=== PATIENT | male | born 1960 | race Caucasian/White ===

== ENCOUNTER 2022-11-22 09:08 | Outpatient (OUT) | payer OTHER, SELFPAY ==
[2022-11-22 10:04] LABS: Basophils Absolute Auto 0.1 10^3/uL (0.0-0.1); Eosinophils Absolute Auto 0.6 10^3/uL (0.0-0.7); Eosinophils Percent Auto 8.3 % (0.9-7.0); Hemoglobin 14.5 g/dL (14.0-18.0); Immature Granulocytes Abs Auto 0.02 10^3/uL (0.00-0.03); Immature Granulocytes Pct Auto 0.3 % (0.0-0.5); Lymphocytes Percent Auto 28.3 % (20.5-60.0); Mean Corpuscular Hemoglobin 29.2 pg (25.9-34.0); Mean Corpuscular Volume 88.5 fL (80.0-94.0); Mean Platelet Volume 9.3 fL (9.5-13.5); Monocytes Absolute Auto 0.6 10^3/uL (0.3-0.8); Monocytes Percent Auto 8.3 % (1.7-12.0); Neutrophils Absolute Auto 3.8 10^3/uL (1.4-6.5); Neutrophils Percent Auto 53.8 % (43.0-75.0); Platelet Count 251 10^3/uL (150-450); Red Blood Count 4.97 10^6/uL (4.70-6.10); Red Cell Distribution Width 13.2 % (11.0-15.0)
[2022-11-22 10:07] LABS: Estimated Average Glucose 108 mg/dL; Glycohemoglobin A1C 5.4 % (4.5-6.2)
[2022-11-22 10:31] LABS: Prostate Specific Antigen Scrn 1.45 ng/mL (<=4.00)
[2022-11-22 10:32] LABS: Alanine Aminotransferase 37 U/L (16-63); Albumin Globulin Ratio 1.1; Albumin Level 3.9 g/dL (3.4-5.0); Alkaline Phosphatase 50 U/L (46-116); Anion Gap 11.4; Aspartate Amino Transferase 41 U/L (15-37); BUN Creatinine Ratio 20.7; Bilirubin Total 0.5 mg/dL (0.2-1.0); Calcium 9.2 mg/dL (8.5-10.1); Carbon Dioxide 28.8 mmol/L (21.0-32.0); Chloride 103 mmol/L (98-107); Chol HDL Ratio 4.9; Cholesterol 197 mg/dL (<=200); Estimated GFR (African America >60 (>=60); Estimated GFR (Non-African Ame >60 (>=60); Free T3 2.78 pg/mL (2.18-3.98); Globulin 3.6 g/dL; Glucose 100 mg/dL (74-106); HDL Cholesterol 40 mg/dL (40-60); Potassium 4.2 mmol/L (3.5-5.1); Sodium 139 mmol/L (136-145); Thyroid Stimulating Hormone 2.682 uIU/mL (0.358-3.740); Total Protein 7.5 g/dL (6.4-8.2); Triglycerides 162 mg/dL (<=150); VLDL CHOLESTEROL 32.4 mg/dL
== END 2022-11-22 09:09 | disposition home or self-care (01) ==
PROVIDERS: PCP Family Medicine; Visit Provider Family Medicine
DX: Z00.00 Encounter for general adult medical examination without abnormal findings (principal); Z12.5 Encounter for screening for malignant neoplasm of prostate
CPT/HCPCS: 36415; 80053; 80061; 83036; 84436; 84443; 84481; 85025; G0103

== ENCOUNTER 2023-01-20 16:05 | Outpatient (OUT) | payer OTHER, SELFPAY ==
--- NOTE | 2023-01-20 16:20 | XR_ITS ---
The [address] [address] Patient Name: NITZA MIRANDA MRN: [id number] date: 1960 Sex: M Assigned Patient Location: LAB Current Patient Location: Accession/Order Number: [id number] Exam Date: 01/20/2023 16:15 Report Date: 01/21/2023 07:14 At the request of: NEHEMIAH SIDDIQUI Procedure: XR chest 2V EXAMINATION: XR chest 2V HISTORY: i57.7 Cardiomegaly COMPARISON: 08/25/2016, 10/18/2020 TECHNIQUE: PA and lateral FINDINGS: LUNGS: No significant pulmonary parenchymal abnormalities. VASCULATURE: No increased pulmonary vasculature. PLEURA: No pneumothorax, effusion, or pleural thickening. CARDIAC: No cardiomegaly or cardiac silhouette abnormality. Valve replacements MEDIASTINUM: No visible mass or adenopathy. Median sternotomy wires BONES: No fracture or visible bone lesion. OTHER: Negative. XR/XR chest 2V IMPRESSION: No acute cardiopulmonary process Electronically authenticated by: FRANCY DUNCAN Date: 01/21/2023 07:14
[2023-01-20 16:37] LABS: Basophils Absolute Auto 0.1 10^3/uL (0.0-0.1); Basophils Percent Auto 0.9 % (0.2-2.0); Eosinophils Absolute Auto 0.5 10^3/uL (0.0-0.7); Hematocrit 42.3 % (42.0-54.0); Immature Granulocytes Abs Auto 0.06 10^3/uL (0.00-0.03); Immature Granulocytes Pct Auto 0.8 % (0.0-0.5); Lymphocytes Absolute Auto 2.2 10^3/uL (1.2-3.8); Lymphocytes Percent Auto 28.4 % (20.5-60.0); Mean Corpuscular HGB Conc 33.1 g/dL (29.9-35.2); Mean Corpuscular Hemoglobin 28.8 pg (25.9-34.0); Mean Platelet Volume 9.3 fL (9.5-13.5); Monocytes Absolute Auto 0.8 10^3/uL (0.3-0.8); Monocytes Percent Auto 10.4 % (1.7-12.0); Neutrophils Absolute Auto 4.1 10^3/uL (1.4-6.5); Neutrophils Percent Auto 52.5 % (43.0-75.0); Platelet Count 229 10^3/uL (150-450); Red Blood Count 4.86 10^6/uL (4.70-6.10); Red Cell Distribution Width 13.6 % (11.0-15.0); White Blood Count 7.7 10^3/uL (4.0-11.0)
[2023-01-20 16:57] LABS: Alanine Aminotransferase 30 U/L (16-63); Albumin Globulin Ratio 0.9; Albumin Level 3.5 g/dL (3.4-5.0); Alkaline Phosphatase 78 U/L (46-116); Anion Gap 10.6; Aspartate Amino Transferase 31 U/L (15-37); BUN Creatinine Ratio 15.7; Bilirubin Total 0.4 mg/dL (0.2-1.0); Calcium 8.6 mg/dL (8.5-10.1); Carbon Dioxide 30.3 mmol/L (21.0-32.0); Chloride 103 mmol/L (98-107); Estimated GFR (African America >60 (>=60); Estimated GFR (Non-African Ame >60 (>=60); Globulin 3.7 g/dL; Glucose 71 mg/dL (74-106); Potassium 3.9 mmol/L (3.5-5.1); Sodium 140 mmol/L (136-145); Total Protein 7.2 g/dL (6.4-8.2)
== END 2023-01-20 16:06 | disposition home or self-care (01) ==
PROVIDERS: PCP Family Medicine; Visit Provider Family Medicine
DX: I11.0 Hypertensive heart disease with heart failure (principal); I50.30 Unspecified diastolic (congestive) heart failure; I51.7 Cardiomegaly
CPT/HCPCS: 36415; 71046; 80053; 83880; 85025

== ENCOUNTER 2023-03-11 15:14 | Outpatient (OUT) | payer OTHER, SELFPAY ==
--- NOTE | 2023-03-11 16:00 | CA_ITS ---
Patient Name: NITZA MIRANDA MR#: [id number] : 1960 Exam Date: 03/11/2023 Ordering Doctor: DR Eric Jimenez . ECHOCARDIOGRAM REPORT PROCEDURE: CA ECHO DOPPLER COMPLETE INDICATIONS: Cardiomegaly, Nonrheumatic mitral stenosis COMPARISON: None. DESCRIPTION: COMPLETE ECHOCARDIOGRAM Real-time transthoracic echocardiography with 2D, M-mode, spectral and color flow Doppler performed. QUALITY: Technical quality was good. LEFT VENTRICLE: Normal chamber size. Thickened septal wall. LV EF: Global left ventricular systolic function is at the lower normal limits; visually estimated ejection fraction is 50 to 55%. Abnormal septal motion; this is not an unusual finding in the post open heart patient. DIASTOLIC: Unable to assess diastolic function. ATRIAL SEPTUM: Inadequately visualized. LEFT ATRIUM: Mild dilatation. RIGHT ATRIUM: Mild dilatation. RIGHT VENTRICLE: Mild dilatation. Normal right ventricular systolic function. TRICUSPID VALVE: Normal mobility and thickness. No stenosis with trivial regurgitation. No evidence of pulmonary hypertension. RVSP 27mmHg MITRAL VALVE: A prosthetic valve (type and size unknown) is seen with normal Doppler velocities. No mitral regurgitation. No perivalvular leak identified. AORTIC VALVE: A prosthetic valve (type and size unknown ) is seen with normal Doppler velocities. No perivalvular leak identified. No aortic regurgitation. AORTIC ROOT: Normal diameter and appearance. Aortic arch repair appears normal in size. PULMONIC VALVE: Normal thickness and mobility. No stenosis. Mild regurgitation. PERICARDIUM: No evidence of pericardial effusion. IVC: Collapses with inspirations. Normal size. CONCLUSION: 1. Global left ventricular systolic function is low normal limits; visually estimated ejection fraction is 50 to 55% 2. The right ventricle is mildly dilated with normal systolic function 3. Biatrial enlargement 4. A prosthetic mitral valve is seen with normal Doppler velocities 5. A prosthetic aortic valve is seen with normal Doppler velocities 6. Mild pulmonic regurgitation Adult Echocardiography Procedure Report Left Ventricle LVEDD (3.7 - 5.6 cm): 4.12 cm LVESD (2.2 - 4.0 cm): 2.93 cm LVIVS thickness (0.6 - 1.2 cm): 1.18 cm LVPW thickness (0.5 - 1.0 cm): 0.89 cm e': 0.10 m/s E - e': 13.18 LVOT Max Gradient: 3.44 mm[Hg] LVOT Area (cm2): 0.93 m/s Peak Velocity (LVOT): 0.93 m/s Mean Velocity (LVOT): 0.63 m/s LVOT Diameter 1.97 cm Left Ventricular Ejection Fraction: 53.29 % Left Atrium LA Volume Index (2D A2C): 42.93 ml/m2 Left Atrium Systolic Dimension: 4.61 cm Mitral Valve MV E to A Ratio: 1.13 Mitral Valve A-Wave Peak Velocity: 1.19 m/s Mitral Valve E-Wave Peak Velocity: 1.34 m/s Right Ventricle RV Internal Diastolic Dimension: 4.45 cm Aorta AO Root Diam: 2.60 cm Ascending Ao Diam: 2.73 cm Aortic Valve AoV Area (Peak Francis): 1.98 cm2, 2.19 cm2 AoV Area (VTI): 2.39 cm2, 2.82 cm2 Peak Velocity(Antegrade Flow): 1.30 m/s, 1.46 m/s, 1.41 m/s, 1.59 m/s, 1.41 m/s Peak Gradient(Antegrade Flow): 6.75 mm[Hg], 8.50 mm[Hg], 7.94 mm[Hg], 10.06 mm[Hg], 7.94 mm[Hg] Mean Velocity(Antegrade Flow): 0.79 m/s, 0.89 m/s, 0.86 m/s, 0.91 m/s, 1.03 m/s Mean Gradient(Antegrade Flow): 2.87 mm[Hg], 3.97 mm[Hg], 3.67 mm[Hg], 4.10 mm[Hg], 4.74 mm[Hg] Velocity Time Integral: 20.53 cm, 25.88 cm, 24.77 cm, 25.53 cm, 24.35 cm Tricuspid Valve Peak Velocity (Regurgitant Flow): 1.99 m/s, 2.44 m/s Pulmonic Valve Mean Gradient: 1.85 mm[Hg], 2.85 mm[Hg], 2.24 mm[Hg] Mean Velocity: 0.64 m/s, 0.81 m/s, 0.70 m/s Peak Velocity: 0.98 m/s Peak Gradient: 3.48 mm[Hg], 4.21 mm[Hg], 3.75 mm[Hg] Right Atrium Right Atrium Systolic Pressure: 91.59 ml, 91.59 ml Dictated by: Lee Ewing M.D. on 03/12/2023 at 14:25 Approved by: Lee Ewing M.D. on 03/12/2023 at 14:33
== END 2023-03-11 15:15 | disposition home or self-care (01) ==
LOC: CARD 15:16
PROVIDERS: PCP Family Medicine; Visit Provider Family Medicine
DX: I51.7 Cardiomegaly (principal); I05.0 Rheumatic mitral stenosis
CPT/HCPCS: 93306

== ENCOUNTER 2023-04-17 14:50 | Emergency (ER) | payer OTHER, SELFPAY ==
--- OUTSIDE RECORDS SUMMARY | 2023-04-17 14:56 | XMS_ITS | CCD ---
Author Name Unknown Address [address] [place] [address] Organization [facility] Care Team Providers Care Destaticizer Feeder Name Role Phone Nehemiah Jimenez Primary Care Provider Nehemiah Jimenez Unavailable Nehemiah Jimenez MD Primary Care Provider [phone] Abner Young Unavailable Dianne WOOD, Nimo Garza Unavailable [phone] NEHEMIAH JIMENEZ Attending Unavailable ARTUR, DR CERNA Admitting Unavailable DR NEHEMIAH JIMENEZ Primary Care Unavailable DR NEHEMIAH JIMENEZ Consulting Unavailable DR NEHEMIAH JIMENEZ Attending Unavailable ARTUR, DR CERNA Admitting Unavailable ARTUR, DR CERNA Primary Care Unavailable Nehemiah Jimenez MD Primary Care Provider [phone] Abner Young Unavailable Dianne WOOD, Nimo Garza Unavailable [phone] Medications Current Medications Medication Drug Class(es) Dates Sig (Normalized) Sig (Original) perflutren lipid microspheres 1.3 mL in NaCl (PF) 0.9% 10 mL injection (DEFINITY) (1 source) Start: 07-26-2020 End: 10-25-2021 perflutren lipid microspheres 1.3 mL in NaCl (PF) 0.9% 10 mL injection (DEFINITY) 125 ml sodium chloride 9 mg/ml prefilled syringe (1 source) Start: 07-26-2020 End: 10-25-2021 sodium chloride 0.9 % (flush) 10 mL (BD POSIFLUSH) Completed/Discontinued Medications Medication Drug Class(es) Dates Sig (Normalized) Sig (Original) amoxicillin 500 mg oral capsule (2 sources) Penicillin-class Antibacterial Start: 07-02-2020 take 4 capsules by mouth every hour amoxicillin (POLYMOX, AMOXIL) 500 mg capsule TAKE 4 CAPSULES BY MOUTH 1 HOUR PRIOR TO PROCEDURE 0 07/02/2020 Active Comment on above: TAKE 4 CAPSULES BY M OUTH 1 HOUR PRIOR TO PROCEDURE Calcium (2 sources) Phosphate Binder, Calcium take 600 mg by mouth once daily CALCIUM ORAL Take 600 mg by mouth once daily. With vitamin D 0 Active Comment on above: Take 600 mg by mouth once daily. With vitamin D lamoTRIgine 100 mg oral tablet (2 sources) Mood Stabilizer, Anti-epileptic Agent Start: 08-27-2020 take 1 tablet by mouth once daily lamoTRIgine (LAMICTAL) 100 mg tablet Take 100 mg by mouth once daily. 0 08/27/2020 Active Comment on above: Take 100 mg by mouth once daily. levothyroxine sodium 0.025 mg oral tablet (2 sources) l-Thyroxine Start: 07-25-2020 take 1 tablet by mouth once daily levothyroxine (SYNTHROID) 25 mcg tablet Take 25 mcg by mouth once daily. 0 07/25/2020 Active Comment on above: Take 25 mcg by mouth once daily. losartan potassium 50 mg oral tablet (4 sources) Angiotensin 2 Receptor Nakul Start: 07-26-2020 End: 11-07-2022 take 1 tablet by mouth every twelve hours losartan (COZAAR) 50 mg tablet take one tablet by mouth twice a day 180 tablet 3 11/07/2022 Active Comment on above: TAKE 1 TABLET BY LILIA TH TWICE A DAY Take 1 tablet by lilia th twice daily. take one tablet by m outh twice a day 24 hr metoprolol succinate 100 mg extended release oral tablet (2 sources) beta-Adrenergic Nakul Start: 06-28-2020 take 100 mg by mouth twice daily metoprolol succinate ER (TOPROL XL) 100 mg Take 100 mg by mouth twice daily. 0 06/28/2020 Active Comment on above: Take 100 mg by mouth twice daily. pravastatin sodium 40 mg oral tablet (2 sources) HMG-CoA Reductase Inhibitor Start: 06-15-2020 take 1 tablet by mouth once daily pravastatin (PRAVACHOL) 40 mg tablet Take 40 mg by mouth once daily. 0 06/15/2020 Active Comment on above: Take 40 mg by mouth once daily. verapamil hydrochloride 180 mg extended release oral tablet (2 sources) Calcium Channel Nakul Start: 03-02-2020 take 1 tablet by mouth twice daily verapamil SR (CALAN SR, ISOPTIN SR) 180 mg CR tablet Take 180 mg by mouth twice daily. 0 03/02/2020 Active Comment on above: Take 180 mg by mouth twice daily. warfarin sodium 5 mg oral tablet (2 sources) Vitamin K Antagonist Start: 10-21-2018 take 1 tablet by mouth once daily warfarin (COUMADIN) 5 mg tablet Take 5 mg by mouth daily as directed. As directed by [facility] coumadin clinic. 0 10/21/2018 Active Comment on above: Take 5 mg by mouth d aily as directed. As directed by [facility] coumadin [facility]. Problems Active Problems Problem Classification Problem Date Documented Da te Episodic/Chronic Aortic; peripheral; and visceral artery aneurysms (2 sources) Thoracic aortic aneurysm without rupture; Translations: [Thoracic aortic aneurysm, without rupture] Onset: 10-18-2015 09-26-2020 Chronic Cardiac dysrhythmias (2 sources) Atrial fibrillation; Translations: [Unspecified atrial fibrillation] Onset: 09-11-2016 09-26-2020 Chronic Essential hypertension (2 sources) Essential hypertension; Translations: [Essential (primary) hypertension] Onset: 09-26-2020 09-26-2020 Chronic Heart valve disorders (4 sources) History of mitral valve replacement; Translations: [Presence of prosthetic heart valve] Onset: 09-26-2020 09-26-2020 Chronic Past or Other Problems Problem Classification Problem Date Documented Da te Episodic/Chronic Other screening for suspected conditions (not mental disorders or infectious disease) (1 source) Encounter for screening for malignant neoplasm of prostate; Translations: [ENC SCREEN MALIG NEOPLASM PROSTATE] Onset: 12-18-2021 Episodic Results Test Name Value Interpretation Reference Range Facility CBC AUTO DIFFon 12-14-2021 BASO # 0.0 103/ul Normal 0.0-0.1 [facility] Comment on above: Performed By: #### C BC #### [facility] [address] [address] [address] Pérez Mg Basophils/100 WBC (Bld) 0.6 % Normal 0.2-2.0 [facility] Comment on above: Performed By: #### C BC #### [facility] [address] [address] [address] Pérez Mg EO # 0.5 103/ul Normal 0.0-0.7 [facility] Comment on above: Performed By: #### C BC #### [facility] [address] [address] [address] Pérez Mg Eosinophils/100 WBC (Bld) 8.6 % Critically high 0.9-7.0 [facility] Comment on above: Performed By: #### C BC #### [facility] [address] [place] [address] Dr. Pérez Mg Erythrocyte distribution width (RBC) [Ratio] 13.2 % Normal 11.0-15.0 [facility] Comment on above: Performed By: #### C BC #### [facility] [address] [place] [address] Dr. Pérez Mg Hematocrit (Bld) [Volume fraction] 43.2 % Normal 42.0-54.0 [facility] Comment on above: Performed By: #### C BC #### [facility] [address] [place] [address] Dr. Pérez Mg Hemoglobin (Bld) [Mass/Vol] 14.6 g/dL Normal 14.0-18.0 [facility] Comment on above: Performed By: #### C BC #### [facility] [address] [place] [address] Dr. Pérez Mg IG # 0.06 10e3/ul Critically high 0.00-0.03 [facility] Comment on above: Performed By: #### C BC #### [facility] [address] [place] [address] Dr. Pérez Mg IG % 1.0 % Critically high 0.0-0.5 [facility] Comment on above: Performed By: #### C BC #### [facility] [address] [place] [address] Dr. Pérez Mg LYMPH # 1.1 103/ul Critically low 1.2-3.8 [facility] Comment on above: Performed By: #### C BC #### [facility] [address] [place] [address] Dr. Pérez Mg Lymphocytes/100 WBC (Bld) 17.5 % Critically low 20.5-60.0 [facility] Comment on above: Performed By: #### C BC #### [facility] [address] [place] [address] Dr. Pérez Mg MANUAL DIFF REQ NO Normal [facility] Comment on above: Performed By: #### C BC #### [facility] [address] [place] [address] Dr. Pérez Mg MCH (RBC) [Entitic mass] 29.0 pg Normal 25.9-34.0 [facility] Comment on above: Performed By: #### C BC #### [facility] [address] [place] [address] Dr. Pérez Mg MCHC (RBC) [Mass/Vol] 33.8 g/dL Normal 29.9-35.2 [facility] Comment on above: Performed By: #### C BC #### [facility] [address] [place] [address] Dr. Pérez Mg MCV (RBC) [Entitic vol] 85.9 fL Normal 80.0-94.0 [facility] Comment on above: Performed By: #### C BC #### [facility] [address] [place] [address] Dr. Pérez Mg MONO # 0.5 103/ul Normal 0.3-0.8 [facility] Comment on above: Performed By: #### C BC #### [facility] [address] [place] [address] Dr. Pérez Mg Monocytes/100 WBC (Bld) 8.3 % Normal 1.7-12.0 [facility] Comment on above: Performed By: #### C BC #### [facility] [address] [place] [address] Dr. Pérez Mg NEUT # 4.0 103/ul Normal 1.4-6.5 [facility] Comment on above: Performed By: #### C BC #### [facility] [address] [address] [address] Pérez Mg Neutrophils/100 WBC (Bld) 64.0 % Normal 43.0-75.0 [facility] Comment on above: Performed By: #### C BC #### [facility] [address] [place] [address] Dr. Pérez Mg Platelet mean volume (Bld) [Entitic vol] 9.1 fL Critically low 9.5-13.5 [facility] Comment on above: Performed By: #### C BC #### [facility] [address] [address] [address] Pérez Mg PLT 213 103/ul Normal 150-450 [facility] Comment on above: Performed By: #### C BC #### [facility] [address] [place] [address] Dr. Pérez Mg RBC 5.03 106/ul Normal 4.70-6.10 [facility] Comment on above: Performed By: #### C BC #### [facility] [address] [place] [address] Dr. Pérez Mg WBC 6.3 103/ul Normal 4.0-11.0 [facility] Comment on above: Performed By: #### C BC #### [facility] [address] [place] [address] Dr. Pérez Mg GLYCOHEMOGLOBIN A1Con 2021 ADA RECOMMENDATION SEE BELOW Normal [facility] Comment on above: Result Comment: ADA RECOMMENDED LIMIT 4.0 - 6.0 ADA THERAPEUTIC TARGET < 7.0 ACTION SUGGESTED > 7.0 Performed By: #### A 1C #### [facility] [address] [place] [address] Dr. Pérez Mg Glucose [Mass/Vol] 105 mg/dL Normal [facility] Comment on above: Performed By: #### A 1C #### [facility] [address] [place] [address] Dr. Pérez Mg HbA1c (Bld) [Mass fraction] 5.3 % Normal 4.5-6.2 [facility] Comment on above: Performed By: #### A 1C #### [facility] [address] [address] [address] Pérez Mg LIPID PROFILEon 12-14-2021 CHOL-HDL RATIO NORM SEE BELOW Normal [facility] Comment on above: Result Comment: 3.3 - 4.4 LOW RISK 4.4 - 7.1 AVERAGE RISK 7.1 - 11.0 MODERATE RISK >11.0 HIGH RISK Performed By: #### L IPID, CMP #### [facility] [address] [address] [address] Pérez Mg Cholesterol [Mass/Vol] 201 mg/dL Critically high <=200 [facility] Comment on above: Performed By: #### L IPID, CMP #### [facility] [address] [address] [address] Pérez Mg Cholesterol in HDL [Mass/Vol] 41 mg/dL Normal 40-60 [facility] Comment on above: Performed By: #### L IPID, CMP #### [facility] [address] [address] [address] Pérez Mg Cholesterol in LDL [Mass/Vol] 122.8 mg/dL Normal [facility] Comment on above: Performed By: #### L IPID, CMP #### [facility] [address] [address] [address] Pérez Mg Cholesterol.total/Cho lesterol in HDL [Mass ratio] 4.9 {ratio} Normal [facility] Comment on above: Performed By: #### L IPID, CMP #### [facility] [address] [address] [address] Pérez Mg HDL NORMAL > or = 60 mg/dl - LOW CARDIOVASCULAR RISK <40 mg/dl - HIGH CARDIOVASCULAR RISK Normal [facility] Comment on above: Performed By: #### L IPID, CMP #### [facility] [address] [address] [address] Pérez Mg LDL CALC NORMAL SEE BELOW Normal [facility] Comment on above: Result Comment: <100 mg/dl OPTIMAL 100 - 129 mg/dl NEAR OR ABOVE OPTIMAL 130 - 159 mg/dl BORDERLINE HIGH 160 - 189 mg/dl HIGH >190 mg/dl VERY HIGH Performed By: #### L IPID, CMP #### [facility] [address] [address] [address] Pérez Mg Triglyceride [Mass/Vol] 186 mg/dL Critically high <=150 [facility] Comment on above: Performed By: #### L IPID, CMP #### [facility] [address] [place] [address] Dr. Pérez Mg VLDL CALC 37.2 mg/dL Normal [facility] Comment on above: Performed By: #### L IPID, CMP #### [facility] [address] [address] [address] Pérez Mg PROF 14(COMP METB)on 022 Albumin [Mass/Vol] 3.9 g/dL Normal 3.4-5.0 [facility] Comment on above: Performed By: #### L IPID, CMP #### [facility] [address] [place] [address] Dr. Pérez Mg Albumin/Globulin [Mass ratio] 1.1 {ratio} Normal [facility] Comment on above: Performed By: #### L IPID, CMP #### [facility] [address] [place] [address] Dr. Pérez gM ALP [Catalytic activity/Vol] 65 U/L Normal 46-116 [facility] Comment on above: Performed By: #### L IPID, CMP #### [facility] [address] [place] [address] Dr. Pérez Mg ALT [Catalytic activity/Vol] 41 U/L Normal 16-63 [facility] Comment on above: Performed By: #### L IPID, CMP #### [facility] [address] [address] [address] Pérez Mg Anion gap [Moles/Vol] 10.3 mmol/L Normal [facility] Comment on above: Performed By: #### L IPID, CMP #### [facility] [address] [place] [address] Dr. Pérez Mg AST [Catalytic activity/Vol] 33 U/L Normal 15-37 [facility] Comment on above: Performed By: #### L IPID, CMP #### [facility] [address] [address] [address] Pérez Mg Bilirubin [Mass/Vol] 0.5 mg/dL Normal 0.2-1.0 [facility] Comment on above: Performed By: #### L IPID, CMP #### [facility] [address] [place] [address] Dr. Pérez Mg Calcium [Mass/Vol] 9.0 mg/dL Normal 8.5-10.1 [facility] Comment on above: Performed By: #### L IPID, CMP #### [facility] [address] [place] [address] Dr. Pérez Mg Chloride [Moles/Vol] 103 mmol/L Normal 98-107 [facility] Comment on above: Performed By: #### L IPID, CMP #### [facility] [address] [place] [address] Dr. Pérez Mg CO2 [Moles/Vol] 27.7 mmol/L Normal 21.0-32.0 [facility] Comment on above: Performed By: #### L IPID, CMP #### [facility] [address] [place] [address] Dr. Pérez Mg Creatinine [Mass/Vol] 0.73 mg/dL Normal 0.70-1.30 [facility] Comment on above: Performed By: #### L IPID, CMP #### [facility] [address] [place] [address] Dr. Pérez Mg EGFR-AF CONGOLESE >60 Normal >=60 [facility] Comment on above: Performed By: #### L IPID, CMP #### [facility] [address] [place] [address] Dr. Pérez Mg EGFR-NON AF CONGOLESE >60 Normal >=60 [facility] Comment on above: Performed By: #### L IPID, CMP #### [facility] [address] [place] [address] Dr. Pérez Mg Globulin (S) [Mass/Vol] 3.6 g/dL Normal [facility] Comment on above: Performed By: #### L IPID, CMP #### [facility] [address] [address] [address] Pérez Mg Glucose [Mass/Vol] 110 mg/dL Critically high 74-106 [facility] Comment on above: Performed By: #### L IPID, CMP #### [facility] [address] [place] [address] Dr. Pérez Mg Potassium [Moles/Vol] 4.0 mmol/L Normal 3.5-5.1 [facility] Comment on above: Performed By: #### L IPID, CMP #### [facility] [address] [place] [address] Dr. Pérez Mg Protein [Mass/Vol] 7.5 g/dL Normal 6.4-8.2 [facility] Comment on above: Performed By: #### L IPID, CMP #### [facility] [address] [place] [address] Dr. Pérez Mg Sodium [Moles/Vol] 137 mmol/L Normal 136-145 [facility] Comment on above: Performed By: #### L IPID, CMP #### [facility] [address] [place] [address] Dr. Pérez Mg Urea nitrogen [Mass/Vol] 16.0 mg/dL Normal 7.0-18.0 [facility] Comment on above: Performed By: #### L IPID, CMP #### [facility] [address] [place] [address] Dr. Pérez Mg Urea nitrogen/Creatinine [Mass ratio] 21.9 mg/mg Normal [facility] Comment on above: Performed By: #### L IPID, CMP #### [facility] [address] [place] [address] Dr. Pérez Dee 01-28-2021 [place] Telephone (GAIL) NITZA IBANEZ ([id number]) 1960 M Date Time Provider Department 01/28/21 JARROD LUNA During your visit today, we recorded the following information about you: Aracelis Silveira 01/28/2021 2:35 PM Signed Outside medical records uploaded to [facility]: CT/OT - CTA chest with contrast - 11/07/2020 Allergies As of Date: 01/28/2021 (No Known Allergies) Date Reviewed: 09/26/2020 Reviewed by: Chasity Payton MD - Fully Assessed Reason for Visit: Received Outside Medical Records [[id number]] Cmt: CT/OT - CTA Chest with Contrast 11/07/2020 Prescriptions as of 01/28/2021 - lamoTRIgine (LAMICTAL) 100 mg tablet Take 100 mg by mouth once daily. - amoxicillin (POLYMOX, AMOXIL) 500 mg capsule TAKE 4 CAPSULES BY MOUTH 1 HOUR PRIOR TO PROCEDURE - metoprolol succinate ER (TOPROL XL) 100 mg Take 100 mg by mouth twice daily. - verapamil SR (CALAN SR, ISOPTIN SR) 180 mg CR tablet Take 180 mg by mouth twice daily. - pravastatin (PRAVACHOL) 40 mg tablet Take 40 mg by mouth once daily. - warfarin (COUMADIN) 5 mg tablet Take 5 mg by mouth daily as directed. [facility] - levothyroxine (SYNTHROID) 25 mcg tablet Take 25 mcg by mouth once daily. - CALCIUM ORAL Take 600 mg by mouth once daily. With vitamin D - losartan (COZAAR) 50 mg tablet Take 1 tablet by mouth twice daily. Facility-Administere d Medications as of 01/28/2021 - perflutren lipid microspheres 1.3 mL in NaCl (PF) 0.9% 10 mL injection (DEFINITY) - sodium chloride 0.9 % (flush) 10 mL (BD POSIFLUSH) Problem List As Of Date 01/28/2021 Noted Resolved Atrial fibrillation (HCC) [I48.91] 09/11/2016 History of mitral valve replacement [Z95.2] 09/26/2020 Primary hypertension [I10] 09/26/2020 Thoracic aortic aneurysm without rupture (HCC) *10/18/2015 History of aortic valve replacement [Z95.2] 09/26/2020 Encounter Status:Closed by ANA FRAZIER on 01/28/21 Normal [facility] CNOVon 09-26-2020 CNOV Office Visit (CITLALLI) NITZA IBAENZ ([id number]) 1960 M Date Time Provider Department 09/26/20 12:30 PM NIMO ALTMAN During your visit today, we recorded the following information about you: Pulse Respiration Blood pressure Weight 63/minute 12/minute 176/72 69.4 kg Height 1.778 m Nimo Altman MD 10/24/2020 11:55 AM Add[facility] Department of Cardiovascular Medicine SECTION OF CARDIOVASCULAR IMAGING OUTPATIENT VISIT DATE September 26, 2020 OUTPATIENT VISIT TYPE NEW PRIMARY CARE PHYSICIAN: Nehemiah Jimenez MD [address] [place] [address] REFERRING PHYSICIAN: Jarrod Luna [address] [place] [id number] CHIEF COMPLAINT: Valvular heart disease HISTORY OF PRESENT ILLNESS: Mr. Ibanez is a 60 year old male with history of ?Marfan's syndrome, thoracic aortic aneurysm s/p aortic root replacement (2001), rheumatic heart disease s/p mechanical AVR x 2 (1984, [address] [facility]), mechanical MVR ([address] [facility] [facility]) HLD, HTN, hypothyroidism, pAF presenting for evaluation of valvular heart disease. Mr. Ibanez was last seen by Jarrod Luna MD on 07/26/2020 for atrial fibrillation and probable tachy/aria. He was set up for [facility], which showed predominant sinus rhythm, 58 atrial/supraventricu lar tachycardia runs, longest lasting 34.4 sec, rare ventricular ectopy. Patient triggered events corresponded to sinus, atrial/supraventricu lar tachycardia, junctional rhythm, and ectopic beats. No changes have been made as of yet based on these findings. He was referred to [facility] by Dr. Luna given history of AVR and MVR. He is overall feeling pretty good, with no acute concerns today. He describes occasional episodes of dizziness/lightheade dness with walking, improved with sitting down. Denies chest pain, syncope, or falls. He has checked his heart rate during such episodes and finds it is often low, in the 40s. He takes 100 mg metoprolol succinate BID (stable dose for years) and 180 mg verapamil BID (also stable dose). Regarding his valves, he reports he has not experienced any major issues since his last cardiac surgery in 2001. Most recent echo in 09/2019 showed stable valve function. Of note, the question of Marfan's arose in the 1980s but has not been formally tested. There is no family history of connective tissue disease, aneurysm, or sudden . Pt has one child who has been screened with echo but no genetic testing. Pt's father in his 80s of leukemia. His mother in her 70s of bone cancer. Brother is living with no cardiac problems. Mr. Ibanez denies chest pain, shortness of breath, orthopnea, cough, edema, PND, syncope. +Palpitations, dizziness. PAST CARDIAC HISTORY: Rheumatic heart disease s/p mechanical AVR, mechanical MVR Paroxysmal atrial fibrillation TAA s/p aortic root replacement PAST MEDICAL HISTORY Diagnosis Date - Aneurysm, thoracic aortic (HCC) - Gallstones - History of aortic valve replacement - History of mitral valve replacement - HLD (hyperlipidemia) - HTN (hypertension) - Hypothyroidism - Marfan's syndrome - Mitral valve disorder - PAF (paroxysmal atrial fibrillation) (HCC) PAST SURGICAL HISTORY Procedure Laterality Date - CARDIOVERSION 2001 - LAP CHOLECYSTECT/CHOLANG IOGRAPHY 05/2020 - PAST SURGICAL HISTORY OF s/p mechanical [facility] AVR 1984, s/p Severe MR with anterior MVL prolapse s/p mechanical [facility] AVR 2001 - PAST SURGICAL HISTORY OF 1988 varicocele surgery - SHX MITRAL VALVE REPLACEMENT - TONSILLECTOMY HX SOCIAL HISTORY Social History Tobacco Use - Smoking status: Never Smoker - Smokeless tobacco: Never Used Vaping Use - Vaping Use: Never used Substance Use Topics - Alcohol use: Never - Drug use: Never No family history on file. ALLERGIES: ALLERGIES No Known Allergies MEDICATIONS: lamoTRIgine (LAMICTAL) 100 mg tablet Take 100 mg by mouth once daily. amoxicillin (POLYMOX, AMOXIL) 500 mg capsule TAKE 4 CAPSULES BY MOUTH 1 HOUR PRIOR TO PROCEDURE metoprolol succinate ER (TOPROL XL) 100 mg Take 100 mg by mouth twice daily. verapamil SR (CALAN SR, ISOPTIN SR) 180 mg CR tablet Take 180 mg by mouth twice daily. pravastatin (PRAVACHOL) 40 mg tablet Take 40 mg by mouth once daily. warfarin (COUMADIN) 5 mg tablet Take 5 mg by mouth daily as directed. As directed by [facility] coumadin clinic. levothyroxine (SYNTHROID) 25 mcg tablet Take 25 mcg by mouth once daily. CALCIUM ORAL Take 600 mg by mouth once daily. With vitamin D losartan (COZAAR) 50 mg tablet Take 1 tablet by mouth twice daily. REVIEW OF SYSTEMS: GENERAL: Negative for: Weight loss or gain, Fever or Chills, Weakness and Sleep difficulties. HEENT: Negative for: Headache, Impai (more content not included)... Normal [facility] CNOVon 07-26-2020 CNOV Office Visit (CARDMN) NITZA IBANEZ ([id number]) 1960 M Date Time Provider Department 07/26/20 12:15 PM JARROD LUNA During your visit today, we recorded the following information about you: Pulse Blood pressure Weight Height 56/minute 167/76 69.4 kg 1.778 m Jarrod Luna MD 07/26/2020 1:53 PM Signed REFERRING/OTHER PHYSICIANS: Nehemiah Jimenez MD (PCP); Abner Young MD (CV) CHIEF COMPLAINT: Nitza Ibanez is a 60 year old male referred for atrial fibrillation and tachy-aria syndrome. HISTORY OF PRESENT ILLNESS: Nitza Ibanez thinks he was first diagnosed with AF after heart valve surgery in 2001, and undewent cardioversion about a week after surgery. He has never been on any AAD's nor ever had ablation or any cardioversions since then. He states he is not sure when he is in AF over the years, but has had intermittent palpitations. He states when it is time for his second doses of Toprol and verapamil, he often feels increased palpitations which resolves after a few hours after taking his medication. For the past year, he has had worsening symptoms of irregular, racing, flip flopping palpitations and also fluctuating HR's. HR can go from 43 bpm to 120 bpm, occuring at random times. The palpitations vary in frequency, sometimes he feels them daily, then at other times he may go a week without palpitations. When he has noticed bradycardia, he sometimes feels briefly lightheaded and slightly short of breath, but denies syncope. He sometimes then drinks a coke and feels a bit better. He feels more fatigue over the past year. He often has leg cramps. He has had no chest pain, orthopnea, PND, edema, syncope, nearsyncope. PROBLEM LIST AND PAST HISTORY: Atrial fibrillation, postop Postop AF after valve surgery 2001 s/p DCC 1 week after surgery Palpitations Since 2001 AVR, MVR, aortic arch repair, has had intermittent palpitations Extra beats, rapid irregular palpitations occur several times/week, up to daily, lasting up to half a day, up to 100-120 bpm Treated with Toprol and verapamil Worsening symptoms since 2019 of irregular, racing, flipflop palpitations, HRS 43-120 bpm Lightheadedness - associated with slow HRs, 40s bpm with SOB Increased fatigue since 2019 Rheumatic /AI s/p mechanical [facility] AVR 1984 Thoracic aortic aneurysm without rupture 6 cm s/p aortic arch repair, redo [facility] AVR, MVR 2001 Severe MR with anterior MVL prolapse s/p mechanical [facility] MVR, AVR, aortic arch repair 2001 Suspected Marfan syndrome Chest pain Normal coronary angiography 2019, normal LV function LVEFF 55% Hypertension Hyperlipidemia Hypothyroidism Gallstones, chronic cholecystits S/p lap cholecystectomy 05/22/20 Leg cramps History of hematuria - lowered his warfarin dosing s/p tonsillectomy S/p surgery for varicocele 1988 ALLERGIES/SENSITIVIT IES: NKDA FAMILY HISTORY: Mother age 73, DM, HTN, bone cancer. Father age 83 leukemia. Brother living age 64 prostate cancer with mets to bones. 2 brothers A AND W, 2 sisters A AND W. No known atrial fibrillation, sudden deaths. 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 . Daughter A AND W. 2 grandchildren. Lives in [place], [place]. Habits: Tobacco: none. Alcohol: never. Caffeine: 1 C coffee daily; occasional hot tea; rarely Coke. Herbals/Supplements: calcium + vitamin D. Exercise: No formal exercise. Active and walks frequently at work, kayak, gardening, yardwork. REVIEW OF SYSTEMS: ENDO: +hypertension, -diabetes, +thyroid disease, +hyperlipidemia. SKIN: + itchy skin/rashes. HEENT: no headaches, sinusitis, changes in vision or hearing. RESP: no cough, COPD, or sleep apnea; see HPI. CVS: see HPI. No history of claudication, peripheral vascular disease, deep venous thrombosis, pulmonary embolism, cardiac arrest. GI: no nausea, vomiting, + occasional diarrhea better since cholecystectomy, no constipation, melena, hematochezia. : no abnormal bleeding recently, dysuria. MS: No arthritis. NEURO: No CVA, TIA, numbness, weakness,+ finger paresthesias mainly when laid on in bed. No history of cancer. General, constitutional: Weight loss or gain- No, Fever or chills-No, Weakness-No, Trouble sleeping-No. Head, Eyes, Ears, Mouth: Headache, head injury-No, Glasses or contact lenses-+, Pain-No, Impaired vision-No, Decreased hearing-No, Ringing in ears-No, Nose bleeds-No, Dental difficulties-No, Bleeding gums-No, Dentures-No. Neck: Swelling-No, Pain-No, Stiffness-+. Respiratory: Cough-No, Spitting up blood-No, Shortness of breath-No, Wheezing or asthma-No. Musculoskeletal: Muscle or joint pain or stiffness-No, Joint swelling-No. Gastrointestinal: Difficulty swallowing-No, Heartburn-No, Change in bowel habits-No, Blood in stool, Dark black stools-No. Neurological/Psychia tric: Weakness, paralysis-No, Numbness-No, (more content not included)... [facility] 07-20-2020 CNPN Telephone (CARDMN) NITZA IBANEZ ([id number]) 1960 M Date Time Provider Department 07/20/20 JARROD LUNAMA During your visit today, we recorded the following information about you: Aracelis Duvall 07/20/2020 4:14 PM Signed Outside medical records scanned into [employer]. Patient scheduled to see Dr. Jarrod Luna on July 26, 2020. Allergies As of Date: 07/20/2020 (Not on File) Date Reviewed: Never Reviewed Reason for Visit: Received Outside Medical Records [[id number]] Problem List As Of Date: 07/20/2020 (None) Encounter Status:Closed by ARACELIS VALLES on 07/20/20 [facility] CNCOon 07-05-2020 CNCO Letter Text [facility] 06-26-2020 CNPN Telephone (REFPHY) NITZA IBANEZ ([id number]) 1960 M Date Time Provider Department 06/26/20 NO PCP (HISTORICAL) REFPHY During your visit today, we recorded the following information about you: Aj Saez 06/26/2020 12:18 PM Signed Patient: Nitza Ibanez Date of : 1960 Patient phone number: [phone] Referring Provider for the encounter: Nehemiah Jimenez Requesting Provider: Someone that specializes in Valve Disease Reason for requesting visit (RFV/signs and symptoms/diagnosis): Bradycardia, tachycardia Person calling: self Return call to: self Medical Records/Insurance Card scanned into [employer]: Yes Comments: Valve Replacement X2 Allergies As of Date: 06/26/2020 (Not on File) Date Reviewed: Never Reviewed Reason for Visit: External Referrals/resources [909] Problem List As Of Date: 06/26/2020 (None) Encounter Status:Closed by AJ SAEZ on 06/26/[address] [facility] Facesheeton 10-27-2019 Facesheet [id number] #1.00CD:127 Normal [facility] Provider Letter FTMCon 10-25 Provider Letter [facility] Nehemiah Jimenez [address] [place] [address] Re: NITZA IBANEZ Date of : 1960 Thank your for your referral of Nitza Ibanez who was seen on consultation on 10/25/2019 for epigastric pain and cholelithiasis. I have enclosed my consultation notes for your review. Sincerely, Kevin Martinez MD General Surgery Normal [facility] Ambulatory Clinical Summaryo n 10-25-2019 Ambulatory Clinical Summary {[id number]}CD:[id number] Normal [facility] General Surgery Office/Clini c Noteon 10-25-2019 General Surgery Office/Clinic Note Chief Complaint referral for cholelithiasis [facility] Staff 59 year old male presents on consultation from Dr. Jimenez for cholelithiasis. Complains of intermittent abdominal pain for several years. Denies nausea or vomiting. [place] foods do make symptoms worse. Denies diarrhea. RUQ US completed 09/27/19 reported severe cholelithiasis, htn, pulmonary htn, Marfan's syndrome; reports intermittent upper abdominal pain, seen in [facility] approximately 1 month ago, had epigastric burning pain, constant, radiating to chest; US revealed cholelithiasis, no acute inflammation, normal ducts; transferred to [facility] for cardiac cath, reportedly ok, was to see surgeon at [facility] regarding gallbladder, but never set up appointment; patient has been on Nexium with improvement in his epigastric pain; does report occasional mild pain with fatty foods; no N/V; no RUQ pain; no bowel changes, no previous abdominal operations; no jaundice or h/o pancreatitis. No fmhx of GI malignancy or IBD. History of Present Illness 59 yo male with h/o AVR, MVR, aortic root/arch graft, on Coumadin therapy, Review of Systems PHQ Score Initial Depression Screen Score: 0 ROS - Provider Constitutional: no fever, no sweats, no weight loss. Eyes: no glasses, no blurred vision, no visual loss. ENMT: no dentures, no hoarseness, no swallowing difficulties, no hearing loss, no ear infection(s), no nose bleeds. Cardiovascular: high blood pressure, yes chest pain, regular heartbeat, no heart murmur. Respiratory: no shortness of breath, no cough, no asthma, no wheezing. Gastrointestinal: no nausea, no vomiting, no diarrhea, no constipation, no blood in stool, no change in bowel habits, mild abdominal pain, no hepatitis. Genitourinary: no kidney stones, no urine infection, no dysuria. Musculoskeletal: no pain, no weakness. Skin: no changing moles, no rash, no skin lumps. Neurologic: no seizures, no epilepsy, no headache. Psychiatric: no emotional or psychiatric problem. Heme/Lymph: no bleeding problems, no anemia, no blood clots, no transfusions. Allergy/Immunologic: no swollen lymph nodes/glands, no IV drug abuse. Other: Additional ROS info: Except as noted in the above Review of Systems and in the History of Present Illness, all other systems have been reviewed and are negative or noncontributory. Physical Exam Vitals & Measurements T: 36.6 ?C (Tympanic) HR: 72(Peripheral) RR: 16 BP: 116/66 HT: 177.8 cm HT: 177.8 cm WT: 71.5 kg WT: 71.5 kg BMI: 22.62 HEENT: normal conjunctiva, sclera clear, no scleral icterus, EOM intact, PERRLA, oral mucosa moist without lesions. Neck: trachea midline, no mass, symmetric, no thyromegaly or nodules, no adenopathy Respiratory: lungs CTA, respirations non labored. Cardiovascular: regular rate and rhythm, mechanical heart sounds, mild murmur, no pedal edema or varicosities. Gastrointestinal: soft, non distended, no tenderness, no masses, no palpable hernias, diastasis recti no, no hepatosplenomegaly; normal bs Lymphatic: no cervical adenopathy, no axillary adenopathy, Musculoskeletal: normal gait, digits and nails without infection, nodes, cyanosis, clubbing. Skin: no rashes, no lesions, no ulcers, no subcutaneous nodules, induration. Psychiatric/Neuro: oriented to time, place, person, judgement normal, affect appropriate for age, insight intact, no focal deficits. Tests: labs reviewed, x-rays reviewed, review of old records completed, Assessment/Plan 1. Epigastric pain (R10.13: Epigastric pain) likely GERD, improving with Nexium; possibly some gallbladder symptoms as well, no severe attacks or evidence of cholecystitis; high risk for surgical intervention; recommend evaluation at [facility] in [place] for their recommendations; patient would likely have more bleeding issues if developed acute cholecystitis due to anticoagulation, so may benefit from a controlled, elective operation. patient will f/u with surgeon he was given in [place]; call with problems/questions.s ee 2. Cholelithiasis (K80.20: Calculus of gallbladder without cholecystitis without obstruction) see # 1 3. GERD (gastroesophageal reflux disease) (K21.9: Gastro-esophageal reflux disease without esophagitis) see # 1 4. 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) see # 1 Orders: Most recent diastolic blood pressure <80 mm Hg 3078F Systolic BP <130 mm Hg (Most Recent) 3074F Follow-up No qualifying data available Problem List/Past Medical History Ongoing AAA (abdominal aortic aneurysm) Atrial enlargement, bilateral Cholelithiasis Chronic anticoagulation Epigastric pain GERD (gastroesophageal reflux disease) HTN (hypertension) Lung nodule LVH (left ventricular hypertrophy) Marfan syndrome Mitral valve stenosis, rheumatic Olfactory nerve disorder PAF (paroxysmal atrial fibrillation) Peyronie disease Pulmonary HTN Unstable angina Historical No qualifying data Procedure/Surgical History Colonoscopy (05/28/2018), Aortic arch, Cardiac catheterisation, History of mechanical mitral valve replacement, Replacement of aortic valve, Varicocele. Medications CeleBREX 200 mg Cap, 200 mg= 1 cap(s), Oral, Daily Coumadin 5 mg Tab, 7.5 mg= 1.5 tab(s), Oral, Daily lamotrigine 100 mg oral tablet, 100 mg= 1 tab(s), Oral, Daily levothyroxine 50 mcg (0.05 mg) Tab, 50 microgram= 1 tab(s), Oral, Daily metoprolol tartrate 100 mg Tab, 100 mg= 1 tab(s), Oral, BID Nexium 40 mg Cap-EC, 40 mg= 1 cap(s), Oral, Daily Pravachol 40 mg Tab, 40 mg= 1 tab(s), Oral, Daily verapamil 180 mg ER Tab, 0.5 tab, Oral, q12hr Allergies No Known Allergies No Known Medication Allergies Social History Alcohol - Denies Alcohol Use, 10/19/2019 Substance Abuse - Denies Substance Abuse, 10/19/2019 Tobacco Never (less than 100 in lifetime) Tobacco Use:., 10/25/2019 Family History Congenital heart disease: Mother. Diabetes mellitus type 2: Mother. Hyperlipidemia: Mother. Leukemia: Father. Primary malignant neoplasm of prostate: Brother. Secondary cancer of bone: Father and Brother. Normal [facility] Comment on above: Result Comment: Elec tronically Signed By: JOAN WOOD, Kevin Drake\Date and Time Signed: 10/25/19 16:58 EDT Physician Referralon 020 Physician Referral [id number] #1.00CD:127 Normal [facility] Physician Referralon 020 Physician Referral [id number]# 1.00CD:127 Normal [facility] RAD - Ultrasound Reporton RAD - Ultrasound Report [id number] #1.00CD:127 Normal [facility] Complete Blood Count Auto Di ffon 05-28-2018 Basophils #/vol (Bld) 0.0 10*3/uL Normal 0.0-0.2 [facility] Comment on above: Order Comment: Comme nt send tubes to 210 Result Comment: PERF ORMED BY: [place] [address] PATHOLOGIST CAR BODY INSPECTOR LESLYE GONZALEZ M.D. Performed By: #### C BC #### [address] Basophils/100 WBC (Bld) 0.7 % Normal . [facility] Comment on above: Order Comment: Comme nt send tubes to 210 Performed By: #### C BC #### [address] Eosinophils #/vol (Bld) 0.3 10*3/uL Normal 0.0-0.45 [facility] Comment on above: Order Comment: Comme nt send tubes to 210 Performed By: #### C BC #### [address] Eosinophils/100 WBC (Bld) 6.0 % Normal . [facility] Comment on above: Order Comment: Comme nt send tubes to 210 Performed By: #### C BC #### [address] Erythrocyte distribution width Ratio (RBC) 14.1 % Normal 12.0-14.8 [facility] Comment on above: Order Comment: Comme nt send tubes to 210 Performed By: #### C BC #### [address] Hematocrit Volume Fraction (Bld) 44.5 % Normal 38.8-50.0 [facility] Comment on above: Order Comment: Comme nt send tubes to 210 Performed By: #### C BC #### [address] Hemoglobin mass conc (Bld) 15.1 g/dL Normal 13.0-17.0 [facility] Comment on above: Order Comment: Comme nt send tubes to 210 Performed By: #### C BC #### [address] Lymphocytes #/vol (Bld) 0.7 10*3/uL Low 1.00-4.8 [facility] Comment on above: Order Comment: Comme nt send tubes to 210 Performed By: #### C BC #### [facility] [address] Lymphocytes/100 WBC (Bld) 11.9 % Normal . [facility] Comment on above: Order Comment: Comme nt send tubes to 210 Performed By: #### C BC #### [facility] [address] MCH Entitic mass (RBC) 33.9 g/dL Normal 32.5-35.6 [facility] Comment on above: Order Comment: Comme nt send tubes to 210 Performed By: #### C BC #### [facility] [address] [place] [address] MCH Entitic mass (RBC) 28.8 pg Normal 27.5-35.2 [facility] Comment on above: Order Comment: Comme nt send tubes to 210 Performed By: #### C BC #### [facility] [address] [place] [address] MCV Entitic volume (RBC) 85.0 fL Normal 83.5-101 [facility] Comment on above: Order Comment: Comme nt send tubes to 210 Performed By: #### C BC #### [facility] [address] [place] [address] Monocytes #/vol (Bld) 0.7 10*3/uL Normal 0.0-0.8 [facility] Comment on above: Order Comment: Comme nt send tubes to 210 Performed By: #### C BC #### [facility] [address] [place] [address] Monocytes/100 WBC (Bld) 11.8 % Normal . [facility] Comment on above: Order Comment: Comme nt send tubes to 210 Performed By: #### C BC #### [facility] [address] [place] [address] Neutrophils #/vol (Bld) 3.9 10*3/uL Normal 1.8-7.7 [facility] Comment on above: Order Comment: Comme nt send tubes to 210 Performed By: #### C BC #### [facility] [address] [place] [address] Neutrophils/100 WBC (Bld) 69.6 % Normal . [facility] Comment on above: Order Comment: Comme nt send tubes to 210 Performed By: #### C BC #### [facility] [address] [place] [address] Nucleated RBC/100 WBC Ratio (Bld) 0.0 % Normal 0-0.5 [facility] Comment on above: Order Comment: Comme nt send tubes to 210 Performed By: #### C BC #### [facility] [address] [place] [address] Platelet mean volume Entitic volume (Bld) 7.4 fL Normal 6.6-10.1 [facility] Comment on above: Order Comment: Comme nt send tubes to 210 Performed By: #### C BC #### [facility] [address] [place] [address] Platelets #/vol (Bld) 237 10*3/uL Normal 150-450 [facility] Comment on above: Order Comment: Comme nt send tubes to 210 Performed By: #### C BC #### [facility] [address] [place] [address] RBC #/vol (Bld) 5.24 10*6/uL Normal 3.90-5.60 [facility] Comment on above: Order Comment: Comme nt send tubes to 210 Performed By: #### C BC #### [facility] [address] [place] [address] WBC #/vol (Bld) 5.6 10*3/uL Normal 4.1-10.5 [facility] Comment on above: Order Comment: Comme nt send tubes to 210 Performed By: #### C BC #### [facility] [address] [place] [address] 05-28-2018 L Specimen: Received: 05/28/18 Status: CAIO Sonia Num: [id number] Spec Type: Surgical Subm Dr: Jim Jules Jr, Tissues: A Colon - Polyp (SIGMOID POLYP) Procedures: HE Stain/2, Gross/Micro L4 Patient Age/Sex Location Account Attending Physician Nitza Ibanez/Jenna [id number] Jim Jules Jr, DO SPEC NUM: RECD: 05/28/18 STATUS: CAIO SONIA NUM: [id number] MARITO: 05/28/[address] [facility] DR: Jim Jules Jr, DO ENTERED: 05/28/[address]: SPEC TYPE: Surgical DEPT: S ORDERED: HE Stain/2, Gross/Micro L4 ORDERED: HE Stain/2, Gross/Micro L4 Pathological Diagnosis Sigmoid colon, biopsy: Tubular adenoma. Specimen Clinical Information Family history colon CA; colonoscopy Gross Received in formalin, labeled with the patient's name, number and sigmoid polyp and consists of two fragments of pink-sommer soft tissue measuring 0.3 x 0.3 x 0.2 cm each. The specimen is submitted entirely in one cassette. (JS/kasey) Microscopic Two glass slides with H E stained material have been examined. The microscopic findings support the above pathologic diagnosis. [id number] A. - - SIGMOID POLYP Specimen: [id number] Received: 05/28/18 Status: CAIO Scott Num: [id number] Spec Type: Surgical Subm Dr: Jim Jules Jr, DO Tissues: A Colon - Polyp (SIGMOID POLYP) Procedures: HE Stain/2, Gross/Micro L4 Patient: MarcelleNitza [id number] (Continued) Signed (signature on file) Leslye Gonzalez MD 05/31/18 1553 Normal [facility] Partial Thromboplastin Timeo n 05-28-2018 aPTT Coag time (Bld) 40.4 s High 23.0-35.0 [facility] Comment on above: Order Comment: Comme nt send tubes to 210 Result Comment: PERF ORMED BY: [place] [address] PATHOLOGIST CAR BODY INSPECTOR LESLYE GONZALEZ M.D. Performed By: #### P T, PTT #### [facility] [address] [place] [address] Prothrombin Time INRon 05-28 INR Coag RelTime (PPP) 1.4 {INR} [facility] Comment on above: Order Comment: Comme nt send tubes to 210 Result Comment: INR Therapeutic Range A) Pre- and Peroperative OAT started two weeks before surgery. NOT HIP SURGERY: 1.5 - 2.5 HIP SURGERY: 2 - 3 B) Primary and secondary prevention of venous THROMBOSIS: 2 - 3 C) Active venous thrombosis, pulmonary embolism and prevention of recurrent venous thrombosis: 2 - 3 D) Prevention of arterial thromboembolism including patients with mechanical heart valves: 3 - 4.5 Performed By: #### P T, PTT #### [facility] [address] [place] [address] Prothrombin time (PT) Coag time (PPP) 16.4 s High 9.0-12.9 [facility] Comment on above: Order Comment: Comme nt send tubes to 210 Performed By: #### P T, PTT #### [facility] [address] [place], [place] [id number] [facility] Encounters Encounter Date Encounter Type Care Provider Facility Start: 11-05-2022 Refteresa Amezcua Work Phone: Cardiology Comment on above: Refill Request Start: 12-18-2021 Encounter for genera l adult medical examination without abnormal findings DR NEHEMIAH JIMENEZ [facility] Start: 12-14-2021 End: 12-15-[address] NEHEMIAH JIMENEZ Facility:[facility] Start: 12-14-2021 End: 12-15-2021 Encounter for general adult medical examination without abnormal findings DR NEHEMIAH JIMENEZ Facility:[facility] Start: 09-24-2021 Refill Jarrod Amezcua Work Phone: Cardiology Comment on above: Refill Request Start: 07-18-[address] NEHEMIAH JIMENEZ Facility :[facility] Start: 06-26-2020 End: 06-26-2020 Telephone encounter No Pcp (Historical) Referring Physician Comment on above: External Referrals/r esources Procedures Date Procedure Procedure Detail Performing Clinician Start: 12-14-[address] OLEKSANDR JIMENEZ Comment on above: Performed By: #### P [facility] #### [facility] [address] [place] [address] Dr. Pérez Mg Plan of Treatment Date Care Activity Detail Author Start: 10-17-2022 Influenza vaccination Influenza Vacc ine (#1) [facility] Start: 02-16-2022 Depression Assessment Depression Ass essment [facility] Start: 10-17-2021 Influenza vaccination INFLUENZA (#1) [facility] Start: 06-18-2020 COVID-19 VACCINE (2 - Booster for Rowdy series) COVID-19 VACCINE (2 - Booster for Rowdy series) [facility] Start: 2014 PROSTATE CANCER SCRE ENING DISCUSSION PROSTATE CANCER SCREENING DISCUSSION [facility] Start: 2009 SHINGRIX VACCINE (1 of 2) SHINGRIX V ACCINE (1 of 2) [facility] Start: 2004 COLOGUARD (FIT-DNA) COLOGUARD (FIT-D NA) [facility] Start: [address] [facility] Start: 2004 COLORECTAL CANCER SCREENING COLORECTAL CANCER SCREENING [facility] Start: [address] COLONOGRAPHY [facility] Start: 2004 DIABETES SCREEN DIABETES SCREEN [facility] Start: 2004 Diabetes Screening Diabetes Screenin g [facility] Start: 2004 FECAL OCCULT BLOOD FECAL OCCULT BLOO D [facility] Start: 2004 SIGMOIDOSCOPY SIGMOIDOSCOPY [facility] Start: 1994 Lipid 1996 panel - S brandon or Plasma Lipid Screening [facility] Start: 1994 LIPID SCREEN LIPID SCREEN [facility] Start: [address] [facility] Start: 1977 ANNUAL PCP TEAM FREIGHT ROUTER ALAN DISEASE VISIT ANNUAL PCP TEAM CHRONIC DISEASE VISIT [facility] Start: 1977 BP CONTROLLED (<130/80) BP CONTROLLE D (<130/80) [facility] Start: 1977 HEPATITIS C SCREENING HEPATITIS C SC REENING [facility] Start: 1977 HIV SCREENING HIV SCREENING [facility] Start: 1971 Adult depression scr eening assessment DEPRESSION SCREENING [facility] Immunizations Immunization Date Immunization Notes Care Provider Fa cili 12-28-2019 influenza virus vacc ine, unspecified formulation Jarrod Luna MD Work Phone: [facility] Payers Date Payer Category Payer Unknown [employer] PPO [id number] 2020-Present [phone] [address] [place] [address] PPO [id number] 2013 Unknown [facility] O [id number] 2013-Present O [id number] 1959 Unknown [id number] 1959 Unknown [id number] 1960 Self-pay 1960 Unknown [id number] Social History Date Type [facility]ail [facility] Start: 01-23-1961 Sex Assigned At Not on file [facility] Start: 07-26-2020 Tobacco smoking stat us NHIS Never smoked tobacco [facility] Work Phone: Start: 07-26-2020 Tobacco use and exposure Smokeless tobacco non-user [facility] Work Phone: Start: 09-26-2020 Alcohol intake Lifetime non-d jose e (finding) [facility] Start: 07-26-2020 History SDOH Alcohol Frequency [address] [facility] Start: 07-26-2020 End: 09-26-2020 History of Social function [facility] Start: 07-26-2020 End: 09-26-[address] [facility] National Score (1-10 0), lower number is lower risk Not on file [facility] Note 11-05-2022 Telephone Encounter - Mary Fowler - 11/05/2022 9:55 AM EDT Note Date & Type Note Facility 11-05-2022 Miscellaneous Notes Formattin g of this note is different from the original. Call from patient requesting refill. Requested Prescriptions Pending Prescriptions Disp Refills losartan (COZAAR) 50 mg tablet [Pharmacy Med Name: LOSARTAN POTASSIUM 50 MG TAB] 180 tablet 3 Sig: take one tablet by mouth twice a day Patient last seen 09/26/20 Mary Fowler documented in this encounter [facility] Note 09-25-2021 Telephone Encounter - Aracelis Silveira - 09/25/2021 7:16 AM EDT Note Date & Type Note Facility 09-25-2021 Miscellaneous Notes Formattin g of this note is different from the original. Electronic request for refill. Requested Prescriptions Pending Prescriptions Disp Refills losartan (COZAAR) 50 mg tablet [Pharmacy Med Name: LOSARTAN POTASSIUM 50 MG TAB] 180 tablet 3 Sig: TAKE 1 TABLET BY MOUTH TWICE A DAY Last office visit in was 07/26/2020 Aracelis Silveira documented in this encounter [facility] Progress note 09-26-2020 Note Date & Type Note Facility 09-26-2020 Note HNO ID: [id number] Author: Nimo Altman MD Service: ? Author Type: Physician Type: Progress Notes Filed: 10/24/2020 11:55 AM Note Text: [facility] Department of Cardiovascular Medicine SECTION OF CARDIOVASCULAR IMAGING OUTPATIENT VISIT DATE September 26, 2020 OUTPATIENT VISIT TYPE NEW PRIMARY CARE PHYSICIAN: Nehemiah Jimenez MD [address] [place] [address] REFERRING PHYSICIAN: Jarrod Luna [address] [facility] [address] CHIEF COMPLAINT: Valvular heart disease HISTORY OF PRESENT ILLNESS: Mr. Ibanez is a 60 year old male with history of ?Marfan's syndrome, thoracic aortic aneurysm s/p aortic root replacement (2001), rheumatic heart disease s/p mechanical AVR x 2 (1984, [address] [facility] [facility]), mechanical MVR ([address] [facility] [facility]) HLD, HTN, hypothyroidism, pAF presenting for evaluation of valvular heart disease. Mr. Ibanez was last seen by Jarrod Luna MD on 07/26/2020 for atrial fibrillation and probable tachy/aria. He was set up for Ziopatch, which showed predominant sinus rhythm, 58 atrial/supraventricular tachycardia runs, longest lasting 34.4 sec, rare ventricular ectopy. Patient triggered events corresponded to sinus, atrial/supraventricular tachycardia, junctional rhythm, and ectopic beats. No changes have been made as of yet based on these findings. He was referred to [facility] by Dr. Luna given history of AVR and MVR. He is overall feeling pretty good, with no acute concerns today. He describes occasional episodes of dizziness/lightheadedness with walking, improved with sitting down. Denies chest pain, syncope, or falls. He has checked his heart rate during such episodes and finds it is often low, in the 40s. He takes 100 mg metoprolol succinate BID (stable dose for years) and 180 mg verapamil BID (also stable dose). Regarding his valves, he reports he has not experienced any major issues since his last cardiac surgery in 2001. Most recent echo in 09/2019 showed stable valve function. Of note, the question of Marfan's arose in the 1980s but has not been formally tested. There is no family history of connective tissue disease, aneurysm, or sudden . Pt has one child who has been screened with echo but no genetic testing. Pt's father in his 80s of leukemia. His mother in her 70s of bone cancer. Brother is living with no cardiac problems. Mr. Ibanez denies chest pain, shortness of breath, orthopnea, cough, edema, PND, syncope. +Palpitations, dizziness. PAST CARDIAC HISTORY: Rheumatic heart disease s/p mechanical AVR, mechanical MVR Paroxysmal atrial fibrillation TAA s/p aortic root replacement PAST MEDICAL HISTORY Diagnosis Date - Aneurysm, thoracic aortic (HCC) - Gallstones - History of aortic valve replacement - History of mitral valve replacement - HLD (hyperlipidemia) - HTN (hypertension) - Hypothyroidism - Marfan's syndrome - Mitral valve disorder - PAF (paroxysmal atrial fibrillation) (HCC) PAST SURGICAL HISTORY Procedure Laterality Date - CARDIOVERSION 2001 - LAP CHOLECYSTECT/CHOLANGIOGRAPHY 05/2020 - PAST SURGICAL HISTORY OF s/p mechanical [facility] AVR 1984, s/p Severe MR with anterior MVL prolapse s/p mechanical [facility] AVR 2001 - PAST SURGICAL HISTORY OF 1988 varicocele surgery - SHX MITRAL VALVE REPLACEMENT - TONSILLECTOMY HX SOCIAL HISTORY Social History Tobacco Use - Smoking status: Never Smoker - Smokeless tobacco: Never Used Vaping Use - Vaping Use: Never used Substance Use Topics - Alcohol use: Never - Drug use: Never No family history on file. ALLERGIES: ALLERGIES No Known Allergies MEDICATIONS: lamoTRIgine (LAMICTAL) 100 mg tablet Take 100 mg by mouth once daily. amoxicillin (POLYMOX, AMOXIL) 500 mg capsule TAKE 4 CAPSULES BY MOUTH 1 HOUR PRIOR TO PROCEDURE metoprolol succinate ER (TOPROL XL) 100 mg Take 100 mg by mouth twice daily. verapamil SR (CALAN SR, ISOPTIN SR) 180 mg CR tablet Take 180 mg by mouth twice daily. pravastatin (PRAVACHOL) 40 mg tablet Take 40 mg by mouth once daily. warfarin (COUMADIN) 5 mg tablet Take 5 mg by mouth daily as directed. As directed by [facility] coumad[facility]. levothyroxine (SYNTHROID) 25 mcg tablet Take 25 mcg by mouth once daily. CALCIUM ORAL Take 600 mg by mouth once daily. With vitamin D losartan (COZAAR) 50 mg tablet Take 1 tablet by mouth twice daily. REVIEW OF SYSTEMS: GENERAL: Negative for: Weight loss or gain, Fever or Chills, Weakness and Sleep difficulties. HEENT: Negative for: Headache, Impaired Vision, Glasses, Hearing Impairment, Ringing in Ears, Nosebleeds, Poor dental care, Bleeding Gums, Dentures NECK: Negative for: Swelling, Pain, Stiffness RESPIRATORY: Negative for: Cough, Blood in Sputum, Shortness of breath, Wheezing, Apnea GASTROINTESTINAL: Negative for: (more content not included)... [facility] Progress note 07-26-2020 Note Date & Type Note Facility 07-26-2020 Note HNO ID: [id number] Author: Daksha Weir Service: ? Author Type: ? Type: Progress Notes Filed: 07/26/2020 2:25 PM Note Text: EVENT MONITOR DISPOSABLE PATCH INSTRUCTIONS Patient Name: Nitza Ibanez [facility] Number: [id number] Skin prepped and cleansed with alcohol Patch secured to prepped area Monitor Activated Serial #: [id number] Patient Instructed: 1.) Prescribed order timeframe 2.) Bathing guidelines 3.) Usage of event button and diary documentation 4.) Return of monitor at the end of prescribed order 5.) Call with problems [phone] or [phone] ext. [phone] Patient expresses a good understanding of instructions Daksha Weir [facility] Clinical Note 07-26-2020 Note Date & Type Note Facility 07-26-2020 Note Education (CARDMN) NITZA IBANEZ Kevin ([id number]) 1960 M Date Time Provider Department 07/26/20 2:00 PM ARRHYTHMIA MONITORING LAB CARDMN Reason for Visit: ZIO PATCH [Other] Progress Notes: Daksha Weir 07/26/2020 2:25 PM Signed EVENT MONITOR DISPOSABLE PATCH INSTRUCTIONS Patient Name: Nitza Ibanez [facility] Number: [id number] Skin prepped and cleansed with alcohol Patch secured to prepped area Monitor Activated Serial #: [id number] Patient Instructed: 1.) Prescribed order timeframe 2.) Bathing guidelines 3.) Usage of event button and diary documentation 4.) Return of monitor at the end of prescribed order 5.) Call with problems [phone] or [phone] ext. [phone] Patient expresses a good understanding of instructions Dakshase Christina Weir Primary Visit Diagnosis:AF (paroxysmal atrial fibrillation) (HCC) [I48.0] Other Visit Diagnoses:Palpitation [R00.2] Sinus bradycardia [R00.1] Lightheadedness [R42] During your visit today, we recorded the following information about you: Allergies As of Date: 07/26/2020 (No Known Allergies) Date Reviewed: 07/26/2020 Reviewed by: Ana Singh RN - Fully Assessed Prescriptions as of 07/26/2020 Sig: METOPROLOL SUCCINATE ER 100 M* Take 100 mg by mouth twice da* VERAPAMIL ER (SR) 180 MG TABL* Take 180 mg by mouth twice da* PRAVASTATIN 40 MG TABLET Take 40 mg by mouth once tisha* WARFARIN 5 MG TABLET Take 5 mg by mouth daily as d* LEVOTHYROXINE 25 MCG TABLET Take 25 mcg by mouth once diane* CELECOXIB 200 MG CAPSULE Take 1 capsule by mouth at be* CALCIUM ORAL Take 600 mg by mouth once diane* LOSARTAN 50 MG TABLET Take 1 tablet by mouth twice * Encounter Status:Closed by DAKSHA GRAVES on 07/26/20 [facility] Progress note 07-26-2020 Note Date & Type Note Facility 07-26-2020 Note HNO ID: [id number] Author: aJrrod Luna MD Service: ? Author Type: Physician Type: Progress Notes Filed: 07/26/2020 1:53 PM Note Text: REFERRING/OTHER PHYSICIANS: Nehemiah Jimneez MD (PCP); Abner Young MD (CV) CHIEF COMPLAINT: Nitza Ibanez is a 60 year old male referred for atrial fibrillation and tachy-aria syndrome. HISTORY OF PRESENT ILLNESS: Nitza Ibanez thinks he was first diagnosed with AF after heart valve surgery in 2001, and undewent cardioversion about a week after surgery. He has never been on any AAD's nor ever had ablation or any cardioversions since then. He states he is not sure when he is in AF over the years, but has had intermittent palpitations. He states when it is time for his second doses of Toprol and verapamil, he often feels increased palpitations which resolves after a few hours after taking his medication. For the past year, he has had worsening symptoms of irregular, racing, flip flopping palpitations and also fluctuating HR's. HR can go from 43 bpm to 120 bpm, occuring at random times. The palpitations vary in frequency, sometimes he feels them daily, then at other times he may go a week without palpitations. When he has noticed bradycardia, he sometimes feels briefly lightheaded and slightly short of breath, but denies syncope. He sometimes then drinks a coke and feels a bit better. He feels more fatigue over the past year. He often has leg cramps. He has had no chest pain, orthopnea, PND, edema, syncope, nearsyncope. PROBLEM LIST AND PAST HISTORY: Atrial fibrillation, postop Postop AF after valve surgery 2001 s/p DCC 1 week after surgery Palpitations Since 2001 AVR, MVR, aortic arch repair, has had intermittent palpitations Extra beats, rapid irregular palpitations occur several times/week, up to daily, lasting up to half a day, up to 100-120 bpm Treated with Toprol and verapamil Worsening symptoms since 2019 of irregular, racing, flipflop palpitations, HRS 43-120 bpm Lightheadedness - associated with slow HRs, 40s bpm with SOB Increased fatigue since 2019 Rheumatic /AI s/p mechanical [facility] AVR 1984 Thoracic aortic aneurysm without rupture 6 cm s/p aortic arch repair, redo [facility] AVR, MVR 2001 Severe MR with anterior MVL prolapse s/p mechanical [facility] MVR, AVR, aortic arch repair 2001 Suspected Marfan syndrome Chest pain Normal coronary angiography 2019, normal LV function LVEFF 55% Hypertension Hyperlipidemia Hypothyroidism Gallstones, chronic cholecystits S/p lap cholecystectomy 05/22/20 Leg cramps History of hematuria - lowered his warfarin dosing s/p tonsillectomy S/p surgery for varicocele 1988 ALLERGIES/SENSITIVITIES: NKDA FAMILY HISTORY: Mother age 73, DM, HTN, bone cancer. Father age 83 leukemia. Brother living age 64 prostate cancer with mets to bones. 2 brothers A AND W, 2 sisters A AND W. No known atrial fibrillation, sudden deaths. 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 . Daughter A AND W. 2 grandchildren. Lives in [place], [place]. Habits: Tobacco: none. Alcohol: never. Caffeine: 1 C coffee daily; occasional hot tea; rarely Coke. Herbals/Supplements: calcium + vitamin D. Exercise: No formal exercise. Active and walks frequently at work, kayak, gardening, yardwork. REVIEW OF SYSTEMS: ENDO: +hypertension, -diabetes, +thyroid disease, +hyperlipidemia. SKIN: + itchy skin/rashes. HEENT: no headaches, sinusitis, changes in vision or hearing. RESP: no cough, COPD, or sleep apnea; see HPI. CVS: see HPI. No history of claudication, peripheral vascular disease, deep venous thrombosis, pulmonary embolism, cardiac arrest. GI: no nausea, vomiting, + occasional diarrhea better since cholecystectomy, no constipation, melena, hematochezia. : no abnormal bleeding recently, dysuria. MS: No arthritis. NEURO: No CVA, TIA, numbness, weakness,+ finger paresthesias mainly when laid on in bed. No history of cancer. General, constitutional: Weight loss or gain- No, Fever or chills-No, Weakness-No, Trouble sleeping-No. Head, Eyes, Ears, Mouth: Headache, head injury-No, Glasses or contact lenses-+, Pain-No, Impaired vision-No, Decreased hearing-No, Ringing in ears-No, Nose bleeds-No, Dental difficulties-No, Bleeding gums-No, Dentures-No. Neck: Swelling-No, Pain-No, Stiffness-+. Respiratory: Cough-No, Spitting up blood-No, Shortness of breath-No, Wheezing or asthma-No. Musculoskeletal: Muscle or joint pain or stiffness-No, Joint swelling-No. Gastrointestinal: Difficulty swallowing-No, Heartburn-No, Change in bowel habits-No, Blood in stool, Dark black stools-No. Neurological/Psychiatric: Weakness, paralysis-No, Numbness-No, Tingling-No, Tremor-No, Nervousness or anxiety-No, Depressed mood-No, Memory loss-No. Skin: Rash-No, Itching-+. Hematological: Easy bruising-+, Easy bleeding-+. Endocrine: Heat or cold intolerance-No, Excessive sweating-No, Frequent urination (more content not included)... [facility] Procedure note 07-26-2020 Note Date & Type Note Facility 07-26-2020 Note HNO ID: [id number] Author: Jarrod Luna MD Service: ? Author Type: Physician Type: Procedures Filed: 09/24/2020 11:47 AM Note Text: Patient Name: Nitza Ibanez : 1960 Ordering Provider: Jarrod Luna Indication: I48.0 Paroxysmal atrial fibrillation Type of Monitor: Extended Monitoring-Zio Patch Enrollment Dates: 07/26/2020-08/09/2020 ZioPatch 07/26/2020-08/09/2020 - Predominant sinus rhythm 42-89 bpm, avg 61 bpm. 58 atrial/supraventricular tachycardia runs occurred, the fastest lasting 4 beats with max rate of 141 bpm, the longest lasting 34.4 sec with avg rate 92 bpm. Junctional rhythm present. Occasional (1.2%) SVE singles, rare (<1.0%) SVE couplets and triplets. Rare (<1.0%) VE singles, couplets, and triplets, ventricular bigeminy (longest 8.9 sec) present. 23 patient triggered events correlating with sinus rhythm 44-86 bpm, atrial/supraventricular tachycardia runs 82-130 bpm, junctional rhythm 43-50 bpm, SVEs, SVE couplets, and VEs. 8 diary entries: skipped/irregular beats, slow rate correlated with VE singles, SVEs, SVE couplets, sinus/junctional bradycardia 50 bpm; mitral valve faster and out of sink with aortic valve with sinus bradycardia 54 bpm. [facility] Note 06-26-2020 Telephone Encounter - Aj Saez - 06/26/2020 12:16 PM EDT Note Date & Type Note Facility 06-26-2020 Miscellaneous Notes Patient: Nitza Ibanez Date of : 1960 Patient phone number: [phone] Referring Provider for the encounter: Nehemiah Jimenez Requesting Provider: Someone that specializes in Valve Disease Reason for requesting visit (RFV/signs and symptoms/diagnosis): Bradycardia, tachycardia Person calling: self Return call to: self Medical Records/Insurance Card scanned into Epic: Yes Comments: Valve Replacement X2 documented in this encounter [facility] Summary Purpose Family History No Family History Records FoundNo Family History Records FoundNo Family History Records FoundNo Family History Records Found Advance Directives No Advanced Directives Records FoundNo Advanced Directives Records FoundNo Advanced Directives Records FoundNo Advanced Directives Records Found Additional Source Comments (unrecognized sect ion and content) No Status Records FoundNo Status Records FoundNo Status Records FoundNo Status Records Found INFORMATION SOURCE (unrecogn ized section and content) DATE CREATED AUTHOR 07/08/2018 [facility] DATE CREATED AUTHOR AUTHOR'S ORGANIZ ATION 10/27/2019 [facility] DATE CREATED AUTHOR AUTHOR'S ORGANIZ ATION 03/19/2021 [facility] DATE CREATED AUTHOR AUTHOR'S ORGANIZ ATION 04/02/2022 [employer] [facility] Comments (unrecognize d section and content) In the event this informatio n is protected by the Federal Confidentiality of Alcohol and Drug Abuse Patient Records regulations: The Federal rules restrict any use of the information to criminally investigate or prosecute any alcohol or drug abuse patient.[facility] the event this information is protected by the Federal Confidentiality of Alcohol and Drug Abuse Patient Records regulations: The Federal rules restrict any use of the information to criminally investigate or prosecute any alcohol or drug abuse patient.[facility] the event this information is protected by the Federal Confidentiality of Alcohol and Drug Abuse Patient Records regulations: The Federal rules restrict any use of the information to criminally investigate or prosecute any alcohol or drug abuse patient.[facility] Reason for Visit (unrecogniz ed section and content) Reason Comments External Referrals/resources Reason Comments Refill Request Care Teams (unrecognized sec tion and content) Destaticizer Feeder Relationship Specialty Start Date End Date Nehemiah Jimenez MD [address] [place] [address] PCP - General Family Practice 06/06/13 Abner Young [address] [address] Referring Cardiology 07/26/20 Nimo Altman MD [address] [place] [address] Primary Staff Physician Cardiology 09/26/20 Destaticizer Feeder Relationship Specialty Start Date End Date Nehemiah Jimenez MD PCP - General Family Medicine 06/06/13 Abner Young [address] [address] Referring Cardiology 07/26/20 Nimo Altman MD [address] [place] [address] Primary Staff Physician Cardiology 09/26/20 FOR RECORDS PERTAINING TO PATIENTS WHO ARE OR HAVE BEEN ENROLLED IN A CHEMICAL DEPENDENCY/SUBSTANCEABUSE PROGRAM, SOME INFORMATION MAY BE OMITTED. This clinical summary was aggregated from multiple sources. Caution should be exercised in using it in the provision of clinical care. This summary normalizes information from multiple sources, and as a consequence, information in this document may materially change the coding, format and clinical context of patient data. In addition, data may be omitted in some cases. CLINICAL DECISIONS SHOULD BE BASED ON THE PRIMARY CLINICAL RECORDS. [facility]. provides no warranty or guarantee of the accuracy or completeness of information in this document.
== END 2023-04-17 15:15 | disposition left against medical advice (07) ==
LOC: ER 14:53
PROVIDERS: Emergency Provider Emergency Medicine; PCP Family Medicine
DX: Z53.21 Procedure and treatment not carried out due to patient leaving prior to being seen by health care provider (principal)

== ENCOUNTER 2023-04-28 13:16 | Outpatient (OUT) | payer OTHER, SELFPAY | END 2023-04-28 13:17 | disposition home or self-care (01) | LOC: SLEEP 13:16 | PROVIDERS: PCP Family Medicine; Visit Provider Family Medicine | DX: G47.33 Obstructive sleep apnea (adult) (pediatric) (principal) | CPT/HCPCS: 95806 ==

== ENCOUNTER 2023-08-22 15:30 | Emergency (ER) | payer BC, SELFPAY ==
[2023-08-22 15:32] VITALS: BP 179/90; PULSE 74; TEMP 36.3; O2SAT 98; BMI 22.1
--- OUTSIDE RECORDS SUMMARY | 2023-08-22 15:36 | XMS_ITS | CCD ---
Author Organization [facility] ion [facility] Care Team Providers Care Acid Tender Name Role Phone Nehemiah Jimenez Primary Care Provider [phone] Nehemiah Jimenez Unavailable Nehemiah Jimenez MD Primary Care Provider [phone] Abner Young Unavailable Dianne WOOD, Nimo Garza Unavailable [phone] NEHEMIAH JIMENEZ Attending Unavailable ARTUR, DR CERNA Admitting Unavailable ARTUR, DR CERNA Primary Care Unavailable DR NEHEMIAH JIMENEZ Consulting Unavailable ARTUR, DR CERNA Attending Unavailable ARTUR, DR CERNA Admitting Unavailable ARTUR, DR CERNA Primary Care Unavailable Nehemiah Jimenez MD Primary Care Provider [phone] Abner Young Unavailable Dianne WOOD, Nimo Garza Unavailable MATT WILLIS Referring Unavailable MATT WILLIS Attending Unavailable MATT WILLIS Admitting Unavailable MATT WILLIS Attending Unavailable HONORIO EVANS Attending Unavailable Medications Current Medications Medication Drug Class(es) Dates [...] mouth daily as directed. As directed by [facility] coumadin clinic. 0 10/21/2018 Active Comment on above: Take 5 mg by mouth d aily as directed. As directed by [facility] coumadin clinic. Problems Active Problems Problem Classification Problem Date Documented Da te Episodic/Chronic Aortic; peripheral; and visceral artery aneurysms (2 sources) Thoracic aortic aneurysm without rupture; Translations: [Thoracic aortic aneurysm, without rupture] Onset: 10-18-2015 09-26-2020 Chronic Cardiac dysrhythmias (6 sources) Atrial fibrillation; Translations: [Unspecified atrial fibrillation] Onset: 09-11-2016 09-26-2020 Chronic Cardiac dysrhythmias (2 sources) Palpitations; Translations: [Palpitations] Onset: 08-11-2023 Episodic Essential hypertension (2 sources) Essential hypertension; Translations: [Essential (primary) hypertension] Onset: 09-26-2020 09-26-2020 Chronic Heart valve disorders (4 sources) History of mitral valve replacement; Translations: [Presence of prosthetic heart valve] Onset: 09-26-2020 09-26-2020 Chronic Past or Other Problems Problem Classification Problem Date Documented Da te Episodic/Chronic Other lower respiratory disease (2 sources) Snoring; Translations: [Snoring] Onset: 04-15-2023 Episodic Other screening for suspected conditions (not mental disorders or infectious disease) (1 source) Encounter for screening for malignant neoplasm of prostate; Translations: [ENC SCREEN MALIG NEOPLASM PROSTATE] Onset: 12-18-2021 Episodic Results Test Name Value Interpretation Reference Range Facility [facility] 06-22-2023 [facility] Electrophysiology Consult Note Reason for visit: AF, MVRx2 (rheumatic disease hx?), hx AVRV HPI: Nitza Ibanez is a 63 y.o. year old with past medical history of Peyronie's disease, aortic valve replacement x2, ?Marfan syndrome??, paresthesia, rheumatic heart disease s/p mitral valve replacement, LVH, A-fib, aortic aneurysm repair on warfarin due to history of A-fib and prosthetic valves. At one point was being seeing by [facility] EP for PPM but no PPM placed. he states for his blood pressure and heart rate he has been on metoprolol 100 mg twice daily and verapamil 100 mg twice daily. he states he does not take his doses consistently and sometimes his heart rates in the 40s and he does not feel well. he usually only takes verapamil 180 mg at night and sometimes takes Toprol-XL 100 mg at night, and in the morning if his heart rate is above 80 which she feels is high for him he takes half dose of Toprol-XL and verapamil. He was seen by Honorio CHENEY on 03/26/2023. given the symptoms the decision was made to back off the beta-blockers to have a more consistent regimen to see where his heart rate runs. he had suggested a 30-day event monitor. 30-day event monitor done from 04/15/2023 to 05/14/2023 revealed no episodes of atrial fibrillation or flutter. symptoms of flutter that correlated with either PAC or just with plain sinus rhythm but majority of them correlated with the PACs. no SVT or VT was noted. TTE 03/07/2023 shows normal LVEF, thickened septal wall, LA/RA mildly dilated, RV mildly dilated, mitral valve shows prosthetic valve without regurgitation or perivalvular leak, aortic valve shows prosthetic valve without regurgitation or perivalvular leak, mild pulmonic regurgitation Labs 01/20/2023 shows stable CBC, sodium 140, K3.9, chloride 103, BUN 14, creatinine 0.89, GFR greater than 60, stable liver function, pro BNP 261 TSH 11/22/2022 2.682, HDL 40, LDL 125, triglycerides 162, hemoglobin A1c 5.4 Per [facility] cardiology 09/2020 HISTORY OF PRESENT ILLNESS: Mr. Ibanez is a 60 year old male with history of Marfan's syndrome, thoracic aortic aneurysm s/p aortic root replacement (2001), rheumatic heart disease s/p mechanical AVR x 2 (1984, 2001), mechanical MVR (2001) HLD, HTN, hypothyroidism, pAF presenting for evaluation of valvular heart disease. He describes episodic dizziness is being evaluated by EP for possible symptomatic bradycardia. He is otherwise without acute symptoms. Echo today shows EF 58% and stable gradients across aortic and mitral mechanical valves. PMH: Past Medical History: Diagnosis Date Aneurysm of ascending aorta without rupture (CMS/HCC) Aortic valve replaced Atrial fibrillation (CMS/HCC) Cardiomegaly GERD (gastroesophageal reflux disease) H/O mitral valve replacement with mechanical valve Hypertension Marfan's syndrome Peyronie's syndrome Pulmonary hypertension (CMS/HCC) Ventricular hypertrophy PSH: Past Surgical History: Procedure Laterality Date AORTIC VALVE REPLACEMENT CHOLECYSTECTOMY COLONOSCOPY W/ BIOPSIES AND POLYPECTOMY MITRAL VALVE REPLACEMENT SH: Social Determinants of Health Tobacco Use: Low Risk (04/15/2023) Patient History Smoking Tobacco Use: Never Smokeless Tobacco Use: Never Passive Exposure: Not on file Alcohol Use: Not on file Financial Resource Strain: Not on file Food Insecurity: Not on file Transportation Needs: Not on file Physical Activity: Not on file Stress: Not on file Social Connections: Not on file Intimate Partner Violence: Unknown (04/10/2023) MD Safety & Environment Fear of Current or Ex-Partner: Not on file Emotionally Abused: Not on file Physically Abused: Not on file Sexually Abused: Not on file Physically or Sexually Abused: Not on file Depression: Not on file Housing Stability: Not on file Utilities: Not on file Allergies: No Known Allergies Weight: 68.9kg Visit Vitals BP 158/81 Pulse 83 Resp 16 SpO2 98% Smoking Status Never Meds: No current facility-administered medications on file prior to encounter. Current Outpatient Medications on File Prior to Encounter Medication Sig Dispense Refill lamoTRIgine (LaMICtal) 100 mg tablet Take 100 mg by mouth in the morning. levothyroxine (Synthroid, Levoxyl) 25 mcg tablet Take 25 mcg by mouth in the morning. losartan (Cozaar) 50 mg tablet Take 50 mg by mouth 2 times daily. metoprolol succinate XL (Toprol-XL) 100 mg 24 hr tablet Take 100 mg by mouth in the morning. Do not crush or chew. pravastatin (Pravachol) 40 mg tablet Take 40 mg by mouth in the morning. verapamil SR (Calan-SR) 180 mg ER tablet Take 1 tablet (180 mg) by mouth at bedtime. 30 tablet 11 warfarin (Coumadin) 5 mg tablet Take 5-7.5 mg by mouth in the morning. ROS: Review of Systems Cardiovascular: Positive for irregular heartbeat and palpitations. All other systems reviewed and are negative. Physical Exam: Constitutional Gener (more content not included)... Normal [facility] NURSNOTEon 06-22-2023 NURSNOTE RN educated pt on d/ c instructions. RN encouraged pt to voice any questions or concerns. Pt verbalizes no questions or concerns at this time. Pt was wheeled off of unit with all of belongings. Normal [facility] Office Visiton 06-02-2023 Follow-up visit [id number] MarcelleIndio hagan as L 1960 M [facility] Provider Department Center 06/02/2023 241-MATT WILLIS SAMUEL Riggins Family History Problem Relation Age of Onset Cancer Mother Cancer Father Diabetes Sister Cancer Brother Diabetes Brother Family Status - Relation Status Age at Mother Father Sister Brother Level of Service:73719 [place] OFFICE/OUTPATIENT NEW MODERATE MDM 45 MINUTES Normal [facility] 36on 04-17-2023 36 He can restart his toprol XL 100mg once daily only [facility] Office Visiton 04-15-2023 Follow-up visit [id number] MarcelleIndio hagan christi L 1960 M Date Provider Department Center 04/15/2023 Luke6-HONORIO EVANS SAMUEL Riggins Family History Problem Relation Age of Onset Cancer Mother Cancer Father Diabetes Sister Cancer Brother Diabetes Brother Family Status - Relation Status Age at Mother Father Sister Brother Level of Service:98036 [place] OFFICE/OUTPATIENT NEW MODERATE MDM 45 MINUTES Reason for Visit and Comments: New Patient [632] - A Fib Normal [facility] CBC AUTO DIFFon 12-14-2021 BASO # 0.0 103/ul Normal 0.0-0.1 [facility] Comment on above: Performed By: #### C BC #### [facility] [address] [address] [address] Pérez Mg Basophils/100 WBC (Bld) 0.6 % Normal 0.2-2.0 [facility] Comment on above: Performed By: #### C BC #### [facility] [address] [address] [address] Pérez Mg EO # 0.5 103/ul Normal 0.0-0.7 [facility] Comment on above: Performed By: #### C BC #### [facility] [address] [address] [address] Pérez Mg Eosinophils/100 WBC (Bld) 8.6 % Critically high 0.9-7.0 [facility] Comment on above: Performed By: #### C BC #### [facility] [address] [address] [address] Pérez Mg Erythrocyte distribution width (RBC) [Ratio] 13.2 % Normal 11.0-15.0 [facility] Comment on above: Performed By: #### C BC #### [facility] [address] [address] [address] Pérez Mg Hematocrit (Bld) [Volume fraction] 43.2 % Normal 42.0-54.0 [facility] Comment on above: Performed By: #### C BC #### [facility] [address] [address] [address] Pérez Mg Hemoglobin (Bld) [Mass/Vol] 14.6 g/dL Normal 14.0-18.0 [facility] Comment on above: Performed By: #### C BC #### [facility] [address] [address] [address] Pérez Mg IG # 0.06 10e3/ul Critically high 0.00-0.03 [facility] Comment on above: Performed By: #### C BC #### [facility] [address] [address] [address] Pérez Mg IG % 1.0 % Critically high 0.0-0.5 [facility] Comment on above: Performed By: #### C BC #### [facility] [address] [address] [address] Pérez Mg LYMPH # 1.1 103/ul Critically low 1.2-3.8 [facility] Comment on above: Performed By: #### C BC #### [facility] [address] [place] [address] Dr. Pérez Mg Lymphocytes/100 WBC (Bld) 17.5 % Critically low 20.5-60.0 [facility] Comment on above: Performed By: #### C BC #### [facility] [address] [place] [address] Dr. Pérez Mg MANUAL DIFF REQ NO Normal [facility] Comment on above: Performed By: #### C BC #### [facility] [address] [place] [address] Dr. Pérez Mg MCH (RBC) [Entitic mass] 29.0 pg Normal 25.9-34.0 [facility] Comment on above: Performed By: #### C BC #### [facility] [address] [place] [address] Dr. Pérez Mg MCHC (RBC) [Mass/Vol] 33.8 g/dL Normal 29.9-35.2 [facility] Comment on above: Performed By: #### C BC #### [facility] [address] [place] [address] Dr. Pérez Mg MCV (RBC) [Entitic vol] 85.9 fL Normal 80.0-94.0 [facility] Comment on above: Performed By: #### C BC #### [facility] [address] [place] [address] Dr. Pérez Mg MONO # 0.5 103/ul Normal 0.3-0.8 [facility] Comment on above: Performed By: #### C BC #### [facility] [address] [place] [address] Dr. Pérez Mg Monocytes/100 WBC (Bld) 8.3 % Normal 1.7-12.0 [facility] Comment on above: Performed By: #### C BC #### [facility] [address] [place] [address] Dr. Pérez Mg NEUT # 4.0 103/ul Normal 1.4-6.5 [facility] Comment on above: Performed By: #### C BC #### [facility] [address] [address] [address] Pérez Mg Neutrophils/100 WBC (Bld) 64.0 % Normal 43.0-75.0 [facility] Comment on above: Performed By: #### C BC #### [facility] [address] [address] [address] Pérez Mg Platelet mean volume (Bld) [Entitic vol] 9.1 fL Critically low 9.5-13.5 [facility] Comment on above: Performed By: #### C BC #### [facility] [address] [address] [address] Pérez Mg PLT 213 103/ul Normal 150-450 [facility] Comment on above: Performed By: #### C BC #### [facility] [address] [place] [address] Dr. Pérez Mg RBC 5.03 106/ul Normal 4.70-6.10 [facility] Comment on above: Performed By: #### C BC #### [facility] [address] [place] [address] Dr. Pérez Mg WBC 6.3 103/ul Normal 4.0-11.0 [facility] Comment on above: Performed By: #### C BC #### [facility] [address] [place] [address] Dr. Pérez Mg GLYCOHEMOGLOBIN A1Con 2021 ADA RECOMMENDATION SEE BELOW Normal [facility] Comment on above: Result Comment: ADA RECOMMENDED LIMIT 4.0 - 6.0 ADA THERAPEUTIC TARGET < 7.0 ACTION SUGGESTED > 7.0 Performed By: #### A 1C #### [facility] [address] [place] [address] Dr. Pérez Mg Glucose [Mass/Vol] 105 mg/dL Normal [facility] Comment on above: Performed By: #### A 1C #### [facility] [address] [place] [address] Dr. Pérez Mg HbA1c (Bld) [Mass fraction] 5.3 % Normal 4.5-6.2 [facility] Comment on above: Performed By: #### A 1C #### [facility] [address] [address] [address] Pérez Mg LIPID PROFILEon 12-14-2021 CHOL-HDL RATIO NORM SEE BELOW Normal [facility] Comment on above: Result Comment: 3.3 - 4.4 LOW RISK 4.4 - 7.1 AVERAGE RISK 7.1 - 11.0 MODERATE RISK >11.0 HIGH RISK Performed By: #### L IPID, CMP #### [facility] [address] [address] [address] Pérez Mg Cholesterol [Mass/Vol] 201 mg/dL Critically high <=200 [facility] Comment on above: Performed By: #### L IPID, CMP #### [facility] [address] [address] [address] Pérez Mg Cholesterol in HDL [Mass/Vol] 41 mg/dL Normal 40-60 [facility] Comment on above: Performed By: #### L IPID, CMP #### [facility] [address] [address] [address] Pérez Mg Cholesterol in LDL [Mass/Vol] 122.8 mg/dL Normal [facility] Comment on above: Performed By: #### L IPID, CMP #### [facility] [address] [address] [address] Pérez Mg Cholesterol.total/Ch olesterol in HDL [Mass ratio] 4.9 {ratio} Normal [facility] Comment on above: Performed By: #### L IPID, CMP #### [facility] [address] [address] [address] Pérez Mg HDL NORMAL > or = 60 mg/dl - LO W CARDIOVASCULAR RISK <40 mg/dl - HIGH CARDIOVASCULAR RISK Normal [facility] Comment on above: Performed By: #### L IPID, CMP #### [facility] [address] [place] [address] Dr. Pérez Mg LDL CALC NORMAL SEE BELOW Normal [facility] Comment on above: Result Comment: <100 mg/dl OPTIMAL 100 - 129 mg/dl NEAR OR ABOVE OPTIMAL 130 - 159 mg/dl BORDERLINE HIGH 160 - 189 mg/dl HIGH >190 mg/dl VERY HIGH Performed By: #### L IPID, CMP #### [facility] [address] [place] [address] Dr. Pérez Mg Triglyceride [Mass/Vol] 186 mg/dL Critically high <=150 [facility] Comment on above: Performed By: #### L IPID, CMP #### [facility] [address] [place] [address] Dr. Pérez Mg VLDL CALC 37.2 mg/dL Normal [facility] Comment on above: Performed By: #### L IPID, CMP #### [facility] [address] [place] [address] Dr. Pérez Mg PROF 14(COMP METB)on 022 Albumin [Mass/Vol] 3.9 g/dL Normal 3.4-5.0 [facility] Comment on above: Performed By: #### L IPID, CMP #### [facility] [address] [place] [address] Dr. Pérez Mg Albumin/Globulin [Mass ratio] 1.1 {ratio} Normal [facility] Comment on above: Performed By: #### L IPID, CMP #### [facility] [address] [place] [address] Dr. Pérez Mg ALP [Catalytic activity/Vol] 65 U/L Normal 46-116 [facility] Comment on above: Performed By: #### L IPID, CMP #### [facility] [address] [place] [address] Dr. Pérez Mg ALT [Catalytic activity/Vol] 41 U/L Normal 16-63 [facility] Comment on above: Performed By: #### L IPID, CMP #### [facility] [address] [place] [address] Dr. Pérez Mg Anion gap [Moles/Vol] 10.3 mmol/L Normal [facility] Comment on above: Performed By: #### L IPID, CMP #### [facility] [address] [place] [address] Dr. Pérez Mg AST [Catalytic activity/Vol] 33 U/L Normal 15-37 [facility] Comment on above: Performed By: #### L IPID, CMP #### [facility] [address] [place] [address] Dr. Pérez Mg Bilirubin [Mass/Vol] 0.5 mg/dL Normal 0.2-1.0 [facility] Comment on above: Performed By: #### L IPID, CMP #### [facility] [address] [place] [address] Dr. Pérez Mg Calcium [Mass/Vol] 9.0 mg/dL Normal 8.5-10.1 [facility] Comment on above: Performed By: #### L IPID, CMP #### [facility] [address] [place] [address] Dr. Pérez Mg Chloride [Moles/Vol] 103 mmol/L Normal 98-107 [facility] Comment on above: Performed By: #### L IPID, CMP #### [facility] [address] [place] [address] Dr. Pérez Mg CO2 [Moles/Vol] 27.7 mmol/L Normal 21.0-32.[address] [facility] Comment on above: Performed By: #### L IPID, CMP #### [facility] [address] [place] [address] Dr. Pérez Mg Creatinine [Mass/Vol] 0.73 mg/dL Normal 0.70-1.30 [facility] Comment on above: Performed By: #### L IPID, CMP #### [facility] [address] [place] [address] Dr. Pérez Mg EGFR-AF SAMMARINESE >60 Normal >=60 [facility] Comment on above: Performed By: #### L IPID, CMP #### [facility] [address] [place] [address] Dr. Pérez Mg EGFR-NON AF SAMMARINESE >60 Normal >=60 [facility] Comment on above: Performed By: #### L IPID, CMP #### [facility] [address] [place] [address] Dr. Pérez Mg Globulin (S) [Mass/Vol] 3.6 g/dL Normal [facility] Comment on above: Performed By: #### L IPID, CMP #### [facility] [address] [place] [address] Dr. Pérez Mg Glucose [Mass/Vol] 110 mg/dL Critically high 74-106 [facility] Comment on above: Performed By: #### L IPID, CMP #### [facility] [address] [place] [address] Dr. Pérez Mg Potassium [Moles/Vol] 4.0 mmol/L Normal 3.5-5.1 [facility] Comment on above: Performed By: #### L IPID, CMP #### [facility] [address] [place] [address] Dr. Pérez Mg Protein [Mass/Vol] 7.5 g/dL Normal 6.4-8.2 [facility] Comment on above: Performed By: #### L IPID, CMP #### [facility] [address] [place] [address] Dr. Pérez Mg Sodium [Moles/Vol] 137 mmol/L Normal 136-145 [facility] Comment on above: Performed By: #### L IPID, CMP #### [facility] [address] [place] [address] Dr. Pérez Mg Urea nitrogen [Mass/Vol] 16.0 mg/dL Normal 7.0-18.0 [facility] Comment on above: Performed By: #### L IPID, CMP #### [facility] [address] [place] [address] Dr. Pérez Mg Urea nitrogen/Creatinine [Mass ratio] 21.9 mg/mg Normal [facility] Comment on above: Performed By: #### L IPID, CMP #### [facility] [address] [place] [address] Dr. Pérez Dee 01-28-2021 [place] Telephone (GAIL) NITZA IBANEZ ([id number]) 1960 M Date Time Provider Department 01/28/21 SILVERIODWAINManda REYNOLDS During your visit today, we recorded the following information about you: Aracelis Silveira 01/28/2021 2:35 PM Signed Outside medical records uploaded to [facility]: CT/OT - CTA chest with contrast - 11/07/2020 Allergies As of Date: 01/28/2021 (No Known Allergies) Date Reviewed: 09/26/2020 Reviewed by: Chasity Payton MD - Fully Assessed Reason for Visit: Received Outside Medical Records [[id number]] Cmt: CT/OT - CTA Chest with Contrast [...] mouth daily as directed. As directed by [facility] coumadin clinic. - levothyroxine (SYNTHROID) 25 mcg tablet Take 25 mcg by mouth once daily. - CALCIUM ORAL Take 600 mg by mouth once daily. With vitamin D - losartan (COZAAR) 50 mg tablet Take 1 tablet by mouth twice daily. Facility-Administered Medications as of 01/28/2021 - perflutren lipid [...] Encounter Status:Closed by ANA FRAZIER on 01/28/21 [facility] CNOVon 09-26-2020 CNOV Office Visit (CARIMN ) NITZA IBANEZ ([id number]) 1960 M Date Time Provider Department 09/26/20 12:30 PM NIMO ALTMAN During your visit today, we recorded the following information about you: Pulse Respiration Blood pressure Weight 63/minute 12/minute 176/72 69.4 kg Height 1.778 m Nimo Altman MD 10/24/2020 11:55 AM Addendum [facility] Department of Cardiovascular Medicine SECTION OF CARDIOVASCULAR IMAGING OUTPATIENT VISIT DATE September 26, 2020 OUTPATIENT VISIT TYPE NEW PRIMARY CARE PHYSICIAN: Nehemiah Jimenez MD [address] [place] [address] REFERRING PHYSICIAN: Jarrod Luna [address] [place] [id number] CHIEF COMPLAINT: Valvular heart disease HISTORY OF [...] [place], which showed predominant sinus rhythm, 58 atrial/supraventricula r tachycardia runs, longest lasting 34.4 sec, rare ventricular ectopy. Patient triggered events corresponded to sinus, atrial/supraventricula r tachycardia, junctional rhythm, and ectopic beats. No changes have been made as of yet based on these findings. He was referred to Imaging Clinic by Dr. Luna given history of AVR and MVR. He is overall feeling pretty good, with no acute concerns today. He describes occasional episodes of dizziness/lightheadedn ess with walking, improved with sitting down. Denies [...] valve disorder - PAF (paroxysmal atrial fibrillation) ([facility]) PAST SURGICAL HISTORY Procedure Laterality Date - CARDIOVERSION 2001 - LAP CHOLECYSTECT/CHOLANGIO GRAPHY 05/2020 - PAST SURGICAL HISTORY OF s/p [...] mouth daily as directed. As directed by [facility] coumadin clinic. levothyroxine (SYNTHROID) 25 mcg tablet [...] Headache, Impai (more content not included)... Normal [facility] CNOVon 07-26-2020 CNOV Office Visit (CARDMN ) NITZA IBANEZ ([id number]) 1960 M Date Time Provider Department 07/26/20 [...] s/p tonsillectomy S/p surgery for varicocele 1988 ALLERGIES/SENSITIVITIE S: NKDA FAMILY HISTORY: Mother age 73, DM, HTN, bone cancer. Father age 83 leukemia. Brother living age 64 prostate cancer with mets to bones. 2 brothers A AND W, 2 sisters A AND W. No known atrial fibrillation, sudden deaths. 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 . Daughter A AND W. 2 grandchildren. Lives in [place], [place]. Habits: Tobacco: none. Alcohol: never. Caffeine: [...] habits-No, Blood in stool, Dark black stools-No. Neurological/Psychiatr ic: Weakness, paralysis-No, Numbness-No, (more content not included)... Normal [facility] 07-20-2020 CNPN Telephone (CARDMN) NITZA IBANEZ ([id number]) 1960 M Date Time Provider Department 07/20/20 JARROD LUNA CARDVT During your visit today, we recorded the following information about you: Aracelis Duvall 07/20/2020 4:14 PM Signed Outside medical records scanned into [employer]. Patient scheduled to see Dr. Jarrod Luna on July 26, 2020. Allergies As of Date: 07/20/2020 (Not on File) Date Reviewed: Never Reviewed Reason for Visit: Received Outside Medical Records [[id number]] Problem List As Of Date: 07/20/2020 (None) Encounter Status:Closed by ARACELIS VALLES on 07/20/20 [facility] CNCOon 07-05-2020 CNCO Letter Text [facility] 06-26-2020 CNPN Telephone (REFPHY) NITZA IBANEZ ([id number]) 1960 M Date Time Provider Department 06/26/20 NO PCP (HISTORICAL) REFPHY During your visit today, we recorded the following information about you: Aj Saez 06/26/2020 12:18 PM Signed Patient: Nitza Ibanez Date of : 1960 Patient phone number: [phone] Referring Provider for the encounter: Nehemiah Jimenez Requesting Provider: Someone that specializes in Valve Disease Reason for requesting visit (RFV/signs and symptoms/diagnosis): Bradycardia, tachycardia Person calling: self Return call to: self Medical Records/Insurance Card scanned into [employer]: Yes Comments: Valve Replacement X2 Allergies As of Date: 06/26/2020 (Not on File) Date Reviewed: Never Reviewed Reason for Visit: External Referrals/resources [909] Problem List As Of Date: 06/26/2020 (None) Encounter Status:Closed by AJ SAEZ on 06/26/20 [facility] Facesheeton 10-27-2019 Facesheet [id number] 0CD:127 Normal [facility] Provider Letter FTMCon 10-25 Provider Letter [facility] Nehemiah Jimenez [address] [facility] [place] [address] Re: NITZA IBANEZ Date of : 1960 Thank your for your referral of Nitza Ibanez who was seen on consultation on 10/25/2019 for epigastric pain and cholelithiasis. I have enclosed my consultation notes for your review. Sincerely, Kevin Martinez MD General Surgery [facility] Ambulatory Clinical Summaryo n 10-25-2019 Ambulatory Clinical Summary {[id number]}CD:[id number] Normal [facility] General Surgery Office/Clini c Noteon 10-25-2019 General Surgery Office/Clinic Note Chief Complaint referral for cholelithiasis [facility] Staff 59 year old male presents on consultation from Dr. Jimenez for cholelithiasis. Complains of intermittent abdominal pain for several years. Denies nausea or vomiting. [place] foods do make symptoms worse. Denies diarrhea. RUQ US completed 09/27/19 reported severe cholelithiasis, htn, pulmonary htn, Marfan's syndrome; reports intermittent upper abdominal pain, seen in [place] ED approximately 1 month ago, had epigastric burning pain, constant, radiating to chest; US revealed cholelithiasis, no acute inflammation, normal ducts; transferred to [place] for cardiac cath, reportedly ok, was to see surgeon at [facility] regarding gallbladder, but never set up appointment; [...] risk for surgical intervention; recommend evaluation at [facility] in [place] for their recommendations; patient would likely have more bleeding issues if developed acute cholecystitis due to anticoagulation, so may benefit from a controlled, elective operation. patient will f/u with surgeon he was given in [place]; call with problems/questions.see 2. Cholelithiasis (K80.20: Calculus of gallbladder without cholecystitis without obstruction) see # 1 3. GERD (gastroesophageal reflux disease) (K21.9: Gastro-esophageal reflux disease without esophagitis) see # 1 4. Chronic anticoagulation (Z79.01: custodial (current) use of anticoagulants) see # 1 [...] cancer of bone: Father and Brother. Normal [facility] Comment on above: Result Comment: Elec tronically Signed By: JOAN WOOD, Kevin Drake\Date and Time Signed: 10/25/19 16:58 EDT Physician Referralon 020 Physician Referral [id number] 0CD:127 Normal [facility] Physician Referralon 020 Physician Referral [id number] CD:127 Normal [facility] RAD - Ultrasound Reporton RAD - Ultrasound Report [id number] 0CD:127 Normal [facility] Complete Blood Count Auto Di ffon 05-28-2018 Basophils #/vol (Bld) 0.0 10*3/uL Normal 0.0-0.2 [facility] Comment on above: Order Comment: Comme nt send tubes to 210 Result Comment: PERF ORMED BY: [place] [address] PATHOLOGIST CREEL CLERK LESLYE GONZALEZ M.D. Performed By: #### C BC #### [address] Basophils/100 WBC (Bld) 0.7 % Normal . [facility] Comment on above: Order Comment: Comme nt send tubes to 210 Performed By: #### C BC #### [address] Eosinophils #/vol (Bld) 0.3 10*3/uL Normal 0.0-0.45 [facility] Comment on above: Order Comment: Comme nt send tubes to 210 Performed By: #### C BC #### [address] Eosinophils/100 WBC (Bld) 6.0 % Normal . [facility] Comment on above: Order Comment: Comme nt send tubes to 210 Performed By: #### C BC #### [address] Erythrocyte distribution width Ratio (RBC) 14.1 % Normal 12.0-14.8 [facility] Comment on above: Order Comment: Comme nt send tubes to 210 Performed By: #### C BC #### [address] Hematocrit Volume Fraction (Bld) 44.5 % Normal 38.8-50.0 [facility] Comment on above: Order Comment: Comme nt send tubes to 210 Performed By: #### C BC #### [address] Hemoglobin mass conc (Bld) 15.1 g/dL Normal 13.0-17.0 [facility] Comment on above: Order Comment: Comme nt send tubes to 210 Performed By: #### C BC #### [address] Lymphocytes #/vol (Bld) 0.7 10*3/uL Low 1.00-4.8 [facility] Comment on above: Order Comment: Comme nt send tubes to 210 Performed By: #### C BC #### [address] Lymphocytes/100 WBC (Bld) 11.9 % Normal . [facility] Comment on above: Order Comment: Comme nt send tubes to 210 Performed By: #### C BC #### [facility] [address] [place] [address] MCH Entitic mass (RBC) 33.9 g/dL Normal 32.5-35.6 [facility] Comment on above: Order Comment: Comme nt send tubes to 210 Performed By: #### C BC #### [address] MCH Entitic mass (RBC) 28.8 pg Normal 27.5-35.2 [facility] Comment on above: Order Comment: Comme nt send tubes to 210 Performed By: #### C BC #### [address] MCV Entitic volume (RBC) 85.0 fL Normal 83.5-101 [facility] Comment on above: Order Comment: Comme nt send tubes to 210 Performed By: #### C BC #### [address] Monocytes #/vol (Bld) 0.7 10*3/uL Normal 0.0-0.8 [facility] Comment on above: Order Comment: Comme nt send tubes to 210 Performed By: #### C BC #### [address] Monocytes/100 WBC (Bld) 11.8 % Normal . [facility] Comment on above: Order Comment: Comme nt send tubes to 210 Performed By: #### C BC #### [address] Neutrophils #/vol (Bld) 3.9 10*3/uL Normal 1.8-7.7 [facility] Comment on above: Order Comment: Comme nt send tubes to 210 Performed By: #### C BC #### [facility] [address] [place] [address] Neutrophils/100 WBC (Bld) 69.6 % Normal . [facility] Comment on above: Order Comment: Comme nt send tubes to 210 Performed By: #### C BC #### [facility] [address] [place] [address] Nucleated RBC/100 WBC Ratio (Bld) 0.0 % Normal 0-0.5 [facility] Comment on above: Order Comment: Comme nt send tubes to 210 Performed By: #### C BC #### [facility] [address] [place] [address] Platelet mean volume Entitic volume (Bld) 7.4 fL Normal 6.6-10.1 [facility] Comment on above: Order Comment: Comme nt send tubes to 210 Performed By: #### C BC #### [facility] [address] [place] [address] Platelets #/vol (Bld) 237 10*3/uL Normal 150-450 [facility] Comment on above: Order Comment: Comme nt send tubes to 210 Performed By: #### C BC #### [facility] [address] [place] [address] RBC #/vol (Bld) 5.24 10*6/uL Normal 3.90-5.60 [facility] Comment on above: Order Comment: Comme nt send tubes to 210 Performed By: #### C BC #### [facility] [address] [place] [address] WBC #/vol (Bld) 5.6 10*3/uL Normal 4.1-10.5 [facility] Comment on above: Order Comment: Comme nt send tubes to 210 Performed By: #### C BC #### [facility] [address] [place] [address] 05-28-2018 L -- ---- Specimen: Received: 05/28/18 Status: CAIO Sonia Num: [id number] Spec Type: Surgical Subm Dr: Jim Jules Jr, Tissues: A Colon - Polyp (SIGMOID POLYP) Procedures: HE Stain/2, Gross/Micro L4 ---- Patient Age/Sex Location Account Attending Physician ---- Nitza Ibanez/Jenna [id number] Jim Jules Jr, DO ---- SPEC NUM: RECD: 05/28/18 STATUS: VERNONDasha SCOTT NUM: [id number] MARITO: 05/28/[address] [facility] [address]: Jim Jules Jr, DO ENTERED: 05/28/[address]: SPEC TYPE: Surgical DEPT: S ORDERED: [...] microscopic findings support the above pathologic diagnosis. [id number] A. - - SIGMOID POLYP ---- ---- Specimen: [id number] Received: 05/28/18 Status: CAIO Scott Num: [id number] Spec Type: Surgical Subm Dr: Jim Jules Jr, DO Tissues: A Colon - Polyp (SIGMOID POLYP) Procedures: HE Stain/2, Gross/Micro L4 ---- Patient: MarcelleNitza [id number] (Continued) ---- Signed (signature on file) Leslye Gonzalez MD 05/31/18 1553 Normal [facility] Partial Thromboplastin Timeo n 05-28-2018 aPTT Coag time (Bld) 40.4 s High 23.0-35.0 [facility] Comment on above: Order Comment: Comme nt send tubes to 210 Result Comment: PERF ORMED BY: [place] [address] PATHOLOGIST CREEL CLERK LESLYE GONZALEZ M.D. Performed By: #### P T, PTT #### [facility] [address] [place], [place] [id number] [place] Prothrombin Time INRon 05-28 INR Coag RelTime (PPP) 1.4 {INR} [facility] Comment on above: Order Comment: Comme [...] Performed By: #### P T, PTT #### [facility] [address] [place], [place] [id number] [facility] Prothrombin time (PT) Coag time (PPP) 16.4 s High 9.0-12.9 [facility] Comment on above: Order Comment: Comme nt send tubes to 210 Performed By: #### P T, PTT #### [facility] [address] [place], [place] [id number] [facility] Encounters Encounter Date Encounter Type Care Provider Facility Start: 08-11-2023 [facility] Start: 06-22-2023 End: 06-22-[address] [facility] Start: 06-02-2023 End: 06-02-[address] [facility] Start: 04-15-2023 End: 04-15-2023 ambulatory [facility] Start: 11-05-2022 Refill Jarrod Amezcua Work Phone: Cardiology Comment on above: Refill Request Start: 12-18-2021 Encounter for genera l adult medical examination without abnormal findings DR NEHEMIAH JIMENEZ [facility] Start: 12-14-2021 End: 12-15-[address] NEHEMIAH [...] Comment on above: Performed By: #### [facility] #### [facility] [address] [place] [address] Dr. Pérez Mg Plan of Treatment Date Care Activity Detail Author Start: 10-17-2022 Influenza vaccination Influenza Vacc ine (#1) [facility] Start: 02-16-2022 Depression Assessment Depression Ass essment [facility] Start: 10-17-2021 Influenza vaccination INFLUENZA (#1) [facility] Start: 06-18-2020 COVID-19 VACCINE (2 - Booster for Rowdy series) COVID-19 VACCINE (2 - Booster for Rowdy series) [facility] Start: 2014 PROSTATE CANCER SCRE ENING DISCUSSION PROSTATE CANCER SCREENING DISCUSSION [facility] Start: 2009 SHINGRIX VACCINE (1 of 2) SHINGRIX V ACCINE (1 of 2) [facility] Start: 2004 COLOGUARD (FIT-DNA) COLOGUARD (FIT-D NA) [facility] Start: 2004 Colonoscopy COLONOSCOPY [facility] Start: 2004 COLORECTAL CANCER SCREENING COLORECTAL CANCER SCREENING [facility] Start: [address] COLONOGRAPHY [facility] Start: 2004 [facility]ABET[facility]CREEN [facility] Start: 2004 Diabetes Screening Diabetes Screenin g [facility] Start: 2004 FECAL OCCULT BLOOD FECAL OCCULT BLOO D [facility] Start: 2004 SIGMOIDOSCOPY SIGMOIDOSCOPY [facility] Start: 1994 Lipid 1996 panel - S brandon or Plasma Lipid Screening [facility] Start: 1994 LIPID SCREEN LIPID SCREEN [facility] Start: 1978 Urine microalbumin profile [facility] Start: 1977 ANNUAL PCP TEAM NIB FINISHER ALAN DISEASE VISIT ANNUAL PCP TEAM CHRONIC DISEASE VISIT [facility] Start: 1977 BP CONTROLLED (<130/80) BP CONTROLLE D (<130/80) [facility] Start: 1977 HEPATITIS C SCREENING HEPATITIS C SC REENING [facility] Start: 1977 HIV SCREENING HIV SCREENING [facility] Start: 1971 Adult depression scr eening assessment DEPRESSION SCREENING [facility] Immunizations Immunization Date Immunization Notes Care Provider Fa ciligiselle 12-28-2019 influenza virus vacc ine, unspecified formulation Jarrod Luna MD Work Phone: [facility] Payers Date Payer Category Payer Unknown [id number] 2023 Unknown [id number] 2020 Unknown [employer]UE [employer]E SS PPO [id number] 2020-Present [phone] [address] [place] [address] PPO [id number] 2013 Unknown [facility] O [id number] 2013-Present O [id number] 1959 Unknown [id number] 1960 Unknown [id number] 1960 Self-pay 1960 Unknown [id number] Social History Date Type Detail Facility Tobacco smoking stat [facility] Unknown if ever smoked [facility] Start: 1960 Sex Assigned At Not on file [facility] Start: 07-26-2020 Tobacco smoking stat [facility] Never smoked tobacco [facility] Work Phone: Start: 07-26-2020 Tobacco use and exposure Smokeless tobacco non-user [facility] Work Phone: Start: 09-26-2020 Alcohol intake Lifetime non-d jose e (finding) [facility] Start: 07-26-2020 History SDOH Alcohol Frequency 1 [facility] Start: 07-26-2020 End: 09-26-2020 History of Social function [facility] Start: 07-26-2020 End: 09-26-2020 Tobacco use panel [facility] National Score (1-10 0), lower number is lower risk Not on file [facility] Clinical Notes 06-26-2020 to 06-22-2023 Telephone Encounter - Mary Fowler - 11/05/2022 9:55 AM EDTTelephone Encounter - Aracelis Silveira - 09/25/2021 7:16 AM EDTTelephone Encounter - Aj Saez - 06/26/2020 12:16 PM EDT Note Date & Type Note Facility 06-22-2023 Note LOOP IMPLANT PROCEDU RE NOTE DATE OF PROCEDURE: 06/22/23 PERFORMING PHYSICIAN: Dr. Matt Willis INDICATIONS FOR PROCEDURE: 1. SVT/AF surveillance CONSENT: Patient LOCATION: EP lab PROCEDURAL SEDATION: None FLUOROSCOPY TIME: 0min PREPARATION: Preoperative antibiotics was administered. EBL: 5cc SPECIMEN REMOVED: None PROCEDURES PERFORMED: 1. LOOP implant PROCEDURE NOTE: Patient was brought to the EP lab in the post absorptive state. A procedural pause was performed verifying the patient, the procedure. Sterile prep and drape were performed over the left precordium and anesthesia with 1% lidocaine was followed by a small incision was made in the 3rd intercostal space near the sternum on the left using the [employer] tool. The loop recorder was then injected subcutaneously and noted to have good sensing parameters. Technical details of the device as noted below. The skin was then closed with 3-0 absorbable monofilament suture and glue applied to hold the edges together. Tegaderm was applied to cover the wound. The patient appeared to tolerate the procedure well and was returned to the room in stable condition. No complications were immediately observed. Sensin.22mV. IMPRESSION: Successful placement of LOOP implant with excellent sensing parameters. COMPLICATIONS: None RECOMMENDATIONS: 1. Occlusive dressing to be changed after 7 days. 2. Do not wet the incision. Matt Willis MD Cardiac Electrophysiology. [facility] 06-02-2023 Note [facility] Consult Note Reason for visit: AF, MVRx2 (rheumatic disease hx?), hx AVRV HPI: Nitza Ibanez is a 63 y.o. year old with past medical history of Peyronie's disease, aortic valve replacement x2, ?Marfan syndrome??, paresthesia, rheumatic heart disease s/p mitral valve replacement, LVH, A-fib, aortic aneurysm repair on warfarin due to history of A-fib and prosthetic valves. At one point was being seeing by [facility] EP for PPM but no PPM placed. he states for his blood pressure and heart rate he has been on metoprolol 100 mg twice daily and verapamil 100 mg twice daily. he states he does not take his doses consistently and sometimes his heart rates in the 40s and he does not feel well. he usually only takes verapamil 180 mg at night and sometimes takes Toprol-XL 100 mg at night, and in the morning if his heart rate is above 80 which she feels is high for him he takes half dose of Toprol-XL and verapamil. He was seen by Honorio CHENEY on 03/26/2023. given the symptoms the decision was made to back off the beta-blockers to have a more consistent regimen to see where his heart rate runs. he had suggested a 30-day event monitor. 30-day event monitor done from 04/15/2023 to 05/14/2023 revealed no episodes of atrial fibrillation or flutter. symptoms of flutter that correlated with either PAC or just with plain sinus rhythm but majority of them correlated with the PACs. no SVT or VT was noted. TTE 03/07/2023 shows normal LVEF, thickened septal wall, LA/RA mildly dilated, RV mildly dilated, mitral valve shows prosthetic valve without regurgitation or perivalvular leak, aortic valve shows prosthetic valve without regurgitation or perivalvular leak, mild pulmonic regurgitation Labs 01/20/2023 shows stable CBC, sodium 140, K3.9, chloride 103, BUN 14, creatinine 0.89, GFR greater than 60, stable liver function, pro BNP 261 TSH 11/22/2022 2.682, HDL 40, LDL 125, triglycerides 162, hemoglobin A1c 5.4 Per [facility] cardiology 09/2020 HISTORY OF PRESENT ILLNESS: Mr. Ibanez is a 60 year old male with history of Marfan's syndrome, thoracic aortic aneurysm s/p aortic root replacement (2001), rheumatic heart disease s/p mechanical AVR x 2 (1984, 2001), mechanical MVR (2001) HLD, HTN, hypothyroidism, pAF presenting for evaluation of valvular heart disease. He describes episodic dizziness is being evaluated by EP for possible symptomatic bradycardia. He is otherwise without acute symptoms. Echo today shows EF 58% and stable gradients across aortic and mitral mechanical valves. PMH: Past Medical History: Diagnosis Date Aneurysm of ascending aorta without rupture (CMS/HCC) Aortic valve replaced Atrial fibrillation (CMS/HCC) Cardiomegaly GERD (gastroesophageal reflux disease) H/O mitral valve replacement with mechanical valve Hypertension Marfan's syndrome Peyronie's syndrome Pulmonary hypertension (CMS/HCC) Ventricular hypertrophy PSH: Past Surgical History: Procedure Laterality Date AORTIC VALVE REPLACEMENT CHOLECYSTECTOMY COLONOSCOPY W/ BIOPSIES AND POLYPECTOMY MITRAL VALVE REPLACEMENT SH: Social Determinants of Health Tobacco Use: Low Risk (04/15/2023) Patient History Smoking Tobacco Use: Never Smokeless Tobacco Use: Never Passive Exposure: Not on file Alcohol Use: Not on file Financial Resource Strain: Not on file Food Insecurity: Not on file Transportation Needs: Not on file Physical Activity: Not on file Stress: Not on file Social Connections: Not on file Intimate Partner Violence: Unknown (04/10/2023) [facility] Fear of Current or Ex-Partner: Not on file Emotionally Abused: Not on file Physically Abused: Not on file Sexually Abused: Not on file Physically or Sexually Abused: Not on file Depression: Not on file Housing Stability: Not on file Utilities: Not on file Allergies: No Known Allergies Weight: 68.9kg Visit Vitals BP 143/83 (BP Location: Right arm, Patient Position: Sitting) Pulse 73 Ht 1.778 m (5' 10 ) Wt 68.9 kg (152 lb) SpO2 93% BMI 21.81 kg/m??? Smoking Status Never BSA 1.84 m??? Meds: Current Outpatient Medications on File Prior to Visit Medication Sig Dispense Refill lamoTRIgine (LaMICtal) 100 mg tablet Take 100 mg by mouth in the morning. levothyroxine (Synthroid, Levoxyl) 25 mcg tablet Take 25 mcg by mouth in the morning. losartan (Cozaar) 50 mg tablet Take 50 mg by mouth 2 times daily. metoprolol succinate XL (Toprol-XL) 100 mg 24 hr tablet Take 100 mg by mouth in the morning. Do not crush or chew. pravastatin (Pravachol) 40 mg tablet Take 40 mg by mouth in the morning. verapamil SR (Calan-SR) 180 mg ER tablet Take 1 tablet (180 mg) by mouth at bedtime. 30 tablet 11 warfarin (Coumadin) 5 mg tablet Take 5-7.5 mg by mouth in the morning. No current facility-administered medications on file prior to visit. ROS: Review of Systems Cardiovascular: Positive for irregular he (more content not included)... [facility] 04-15-2023 Note [facility] Consult Note Reason for visit: new pt, AF, MVRx2 (rheumatic disease hx?), hx AVRV HPI: Nitza Ibanez is a 63 y.o. year old with past medical history of Peyronie's disease, aortic valve replacement x2, ?Marfan syndrome??, paresthesia, rheumatic heart disease s/p mitral valve replacement, LVH, A-fib, aortic aneurysm repair On warfarin due to history of A-fib and prosthetic valves At one point was being seeing by [facility] EP for PPM but no PPM placed he states for his blood pressure and heart rate he has been on metoprolol 100 mg twice daily and verapamil 100 mg twice daily he states he does not take his doses consistently and sometimes his heart rates in the 40s and he does not feel well. he usually only takes verapamil 180 mg at night and sometimes takes Toprol-XL 100 mg at night, and in the morning if his heart rate is above 80 which she feels is high for him he takes half dose of Toprol-XL and verapamil I discussed with him he may just be on too much AV zoran blocking agents and for now we may need to back off some of them to have a more consistent regimen to see where his heart rate normally since I discussed with him that her heart rate in the 80s or 90s is not a reason to take rate control medication, especially if he is in just a sinus rhythm TTE 03/07/2023 shows normal LVEF, thickened septal wall, LA/RA mildly dilated, RV mildly dilated, mitral valve shows prosthetic valve without regurgitation or perivalvular leak, aortic valve shows prosthetic valve without regurgitation or perivalvular leak, mild pulmonic regurgitation Labs 01/20/2023 shows stable CBC, sodium 140, K3.9, chloride 103, BUN 14, creatinine 0.89, GFR greater than 60, stable liver function, pro BNP 261 TSH 11/22/2022 2.682, HDL 40, LDL 125, triglycerides 162, hemoglobin A1c 5.4 Per [facility] 09/2020 HISTORY OF PRESENT ILLNESS: Mr. Ibaenz is a 60 year old male with history of ?Marfan's syndrome, thoracic aortic aneurysm s/p aortic root replacement (2001), rheumatic heart disease s/p mechanical AVR x 2 (1984, [address] [place]), mechanical MVR ([address] [facility]) HLD, HTN, hypothyroidism, pAF presenting for evaluation of valvular heart disease. Mr. Ibanez is a 60 year old male with history of Marfan's syndrome, thoracic aortic aneurysm s/p aortic root replacement (2001), rheumatic heart disease s/p mechanical AVR x 2 (1984, 2001), mechanical MVR (2001) HLD, HTN, hypothyroidism, pAF presenting for evaluation of valvular heart disease. He describes episodic dizziness is being evaluated by EP for possible symptomatic bradycardia. He is otherwise without acute symptoms. Echo today shows EF 58% and stable gradients across aortic and mitral mechanical valves. PMH: Past Medical History: Diagnosis Date Aneurysm of ascending aorta without rupture (CMS/HCC) Aortic valve replaced Atrial fibrillation (CMS/HCC) Cardiomegaly GERD (gastroesophageal reflux disease) H/O mitral valve replacement with mechanical valve Hypertension Marfan's syndrome Peyronie's syndrome Pulmonary hypertension (CMS/HCC) Ventricular hypertrophy PSH: Past Surgical History: Procedure Laterality Date AORTIC VALVE REPLACEMENT CHOLECYSTECTOMY COLONOSCOPY W/ BIOPSIES AND POLYPECTOMY MITRAL VALVE REPLACEMENT SH: Social Determinants of Health Tobacco Use: Low Risk (04/15/2023) Patient History Smoking Tobacco Use: Never Smokeless Tobacco Use: Never Passive Exposure: Not on file Alcohol Use: Not on file Financial Resource Strain: Not on file Food Insecurity: Not on file Transportation Needs: Not on file Physical Activity: Not on file Stress: Not on file Social Connections: Not on file Intimate Partner Violence: Unknown (04/10/2023) MD Safety & Environment Fear of Current or Ex-Partner: Not on file Emotionally Abused: Not on file Physically Abused: Not on file Sexually Abused: Not on file Physically or Sexually Abused: Not on file Depression: Not on file Housing Stability: Not on file Utilities: Not on file Allergies: Not on File Weight: 61.7kg Visit Vitals Resp 11 Ht 1.778 m (5' 10 ) Wt 61.7 kg (136 lb) BMI 19.51 kg/m??? Smoking Status Never BSA 1.75 m??? Meds: Current Outpatient Medications on File Prior to Visit Medication Sig Dispense Refill lamoTRIgine (LaMICtal) 100 mg tablet Take 100 mg by mouth in the morning. levothyroxine (Synthroid, Levoxyl) 25 mcg tablet Take 25 mcg by mouth in the morning. metoprolol succinate XL (Toprol-XL) 100 mg 24 hr tablet Take 1 tablet by mouth in the morning and at bedtime. pravastatin (Pravachol) 40 mg tablet Take 40 mg by mouth in the morning. verapamil SR (Calan-SR) 180 mg ER tablet Take 1 tablet by mouth in the morning and at bedtime. warfarin (Coumadin) 5 mg tablet Take 5-7.5 mg by mouth in the morning. [DISCONTINUED] oxyCODONE-acetaminophen (Percocet) 5-325 mg tablet Take 1 tablet by mouth every (more content not included)... [facility] 11-05-2022 Miscellaneous Notes Call from patient requesting refill. Requested Prescriptions Pending Prescriptions Disp Refills losartan (COZAAR) 50 mg tablet [Pharmacy Med Name: LOSARTAN POTASSIUM 50 MG TAB] 180 tablet 3 Sig: take one tablet by mouth twice a day Patient last seen 09/26/20 Mary Fowler documented in this encounter [facility] 09-25-2021 Miscellaneous Notes Electronic request for refill. Requested Prescriptions Pending Prescriptions Disp Refills losartan (COZAAR) 50 mg tablet [Pharmacy Med Name: LOSARTAN POTASSIUM 50 MG TAB] 180 tablet 3 Sig: TAKE 1 TABLET BY MOUTH TWICE A DAY Last office visit in was 07/26/2020 Aracelis Silveira documented in this encounter [facility] 09-26-2020 Note HNO ID: [id number] Author: Nimo Altman MD Service: ? Author Type: Physician Type: Progress Notes Filed: 10/24/2020 11:55 AM Note Text: [facility] Department of Cardiovascular Medicine SECTION OF CARDIOVASCULAR IMAGING OUTPATIENT VISIT DATE September 26, 2020 OUTPATIENT VISIT TYPE NEW PRIMARY CARE PHYSICIAN: Nehemiah Jimenez MD [address] [place] [address] REFERRING PHYSICIAN: Jarrod Luna [address] [place] [id number] CHIEF COMPLAINT: Valvular heart disease HISTORY OF [...] valve disorder - PAF (paroxysmal atrial fibrillation) ([facility]) PAST SURGICAL HISTORY Procedure Laterality Date - CARDIOVERSION 2001 - LAP CHOLECYSTECT/CHOLANGIOGRAPHY 05/2020 - PAST SURGICAL HISTORY OF s/p mechanical [facility] AVR 1984, s/p Severe MR with anterior MVL prolapse s/p mechanical [facility] AVR 2001 - PAST SURGICAL HISTORY OF [...] daily as [facility]. [facility] levothyroxine (SYNTHROID) 25 mcg tablet [...] GASTROINTESTINAL: Negative for: (more content not included)... [facility] 07-26-2020 Note HNO ID: [id number] Author: Daksha Weir Service: ? Author Type: ? Type: Progress Notes Filed: 07/26/2020 2:25 PM Note Text: EVENT MONITOR DISPOSABLE PATCH INSTRUCTIONS Patient Name: Nitza Ibanez [facility] Number: [id number] Skin prepped and cleansed with alcohol Patch secured to prepped area Monitor Activated Serial #: [id number] Patient Instructed: 1.) Prescribed order timeframe 2.) Bathing guidelines 3.) Usage of event button and diary documentation 4.) Return of monitor at the end of prescribed order 5.) Call with problems [phone] or [phone] ext. [phone] Patient expresses a good understanding of instructions Daksha Weir [facility] 07-26-2020 Note Education (CARDMN) MARCELLENITZA ([id number]) 1960 M Date Time Provider Department 07/26/20 2:00 PM ARRHYTHMIA MONITORING LAB CARDMN Reason for Visit: ZIO PATCH [Other] Progress Notes: Daksha Weir 07/26/2020 2:25 PM Signed EVENT MONITOR DISPOSABLE PATCH INSTRUCTIONS Patient Name: Nitza Ibanez Clinic Number: [id number] Skin prepped and cleansed with alcohol Patch secured to prepped area Monitor Activated Serial #: [id number] Patient Instructed: 1.) Prescribed order timeframe 2.) Bathing guidelines 3.) Usage of event button and diary documentation 4.) Return of monitor at the end of prescribed order 5.) Call with problems [phone] or [phone] ext. [phone] Patient expresses a good understanding of instructions Daksha Weir Primary Visit Diagnosis:AF (paroxysmal atrial fibrillation) [...] Encounter Status:Closed by DAKSHA GRAVES on 07/26/20 [facility] 07-26-2020 Note HNO ID: [id number] Author: Jarrod Luna MD Service: ? Author Type: Physician Type: Progress Notes Filed: 07/26/2020 1:53 PM Note Text: REFERRING/OTHER PHYSICIANS: Nehemiah Jimenez MD (PCP); Abner [...] Rheumatic /AI s/p mechanical [facility] AVR 1985 Thoracic aortic aneurysm without rupture 6 cm s/p aortic arch repair, redo [facility] AVR, MVR 2002 Severe MR with anterior MVL prolapse s/p [...] fibrillation, sudden deaths. 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 . Daughter A AND W. 2 grandchildren. Lives in [place], [place]. Habits: Tobacco: none. Alcohol: never. Caffeine: [...] sweating-No, Frequent urination (more content not included)... [facility] 07-26-2020 Note HNO ID: [id number] Author: Jarrod Luna MD Service: ? Author [...] aortic valve with sinus bradycardia 54 bpm. [facility] 06-26-2020 Miscellaneous Notes Patient: Nitza Ibanez Date of : 1960 Patient phone number: [phone] Referring Provider for the encounter: Nehemiah Jimenez Requesting Provider: Someone that specializes in Valve Disease Reason for requesting visit (RFV/signs and symptoms/diagnosis): Bradycardia, tachycardia Person calling: self Return call to: self Medical Records/Insurance Card scanned into [employer]: Yes Comments: Valve Replacement X2 documented in this encounter [facility] Summary Purpose Family History No Family History [...] section and content) DATE CREATED AUTHOR 07/08/2018 [facility] DATE CREATED AUTHOR AUTHOR'S ORGANIZ ATION 10/27/2019 [facility] DATE CREATED AUTHOR AUTHOR'S ORGANIZ ATION 03/19/2021 [facility] DATE CREATED AUTHOR AUTHOR'S ORGANIZ ATION 04/02/[address] [facility] DATE CREATED AUTHOR AUTHOR'S ORGANIZ ATION 08/12/2023 [facility] Source Comments (unrecognize d section and content) In the event this informatio n is protected by the Federal Confidentiality of Alcohol and Drug Abuse Patient Records regulations: The Federal rules restrict any use of the information to criminally investigate or prosecute any alcohol or drug abuse patient.[facility] the event this information is protected by the Federal Confidentiality of Alcohol and Drug Abuse Patient Records regulations: The Federal rules restrict any use of the information to criminally investigate or prosecute any alcohol or drug abuse patient.[facility] the event this information is protected by the Federal Confidentiality of Alcohol and Drug Abuse Patient Records regulations: The Federal rules restrict any use of the information to criminally investigate or prosecute any alcohol or drug abuse patient.[facility] Reason for Visit (unrecogniz ed section and content) Reason Comments External Referrals/resources Reason Comments Refill Request Care Teams (unrecognized sec tion and content) Acid Tender Relationship Specialty Start Date End Date Nehemiah Jimenez MD [address] [place] [address] PCP - General Family Practice 06/06/13 Abner Young [address] [address] Referring Cardiology 07/26/20 Nimo Altman MD [address] [place] [address] Primary Staff Physician Cardiology 09/26/20 Acid Tender Relationship Specialty Start Date End Date Nehemiah Jimenez MD PCP - General Family Medicine 06/06/13 Abner Young [address] [address] Referring Cardiology 07/26/20 Nimo Altman MD [address] [place] [address] Primary Staff Physician Cardiology 09/26/20 [...] BE BASED ON THE PRIMARY CLINICAL RECORDS. [employer] provides no warranty or guarantee of the accuracy or completeness of information in this document.
[2023-08-22] MEDS: ADACEL DIPH,PERTUSS(ACELL),TET VAC/PF 0.5 ML ADULT SYRINGE IM (16:46)
[2023-08-22] MEDS: BACITRACIN 0.9 GM PACKET 1 PACKET TOPICAL (16:46)
[2023-08-22 16:56] VITALS: BP 165/77; PULSE 62; O2SAT 98
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
== END 2023-08-22 16:59 | disposition home or self-care (01) ==
PROVIDERS: Emergency Provider Emergency Medicine; PCP Family Medicine
DX: T25.321A Burn of third degree of right foot, initial encounter (principal); X19.XXXA Contact with other heat and hot substances, initial encounter; Z23 Encounter for immunization
CPT/HCPCS: 90471; 90715; 99284

== ENCOUNTER 2023-09-02 17:11 | Outpatient (RCR) | payer BC, SELFPAY | END 2023-09-16 10:11 | disposition home or self-care (01) | LOC: MM 17:11 | PROVIDERS: PCP Family Medicine; Visit Provider Internal Medicine | DX: Z51.81 Encounter for therapeutic drug level monitoring (principal); Z79.01 Long term (current) use of anticoagulants; I48.91 Unspecified atrial fibrillation | CPT/HCPCS: 85610; G0463 ==

== ENCOUNTER 2023-09-04 11:53 | Outpatient (OUT) | payer BC, SELFPAY ==
--- OUTSIDE RECORDS SUMMARY | 2023-09-04 12:09 | XMS_ITS | CCD ---
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 Name Role Phone Nehemiah Jimenez Primary Care Provider [phone] Nehemiah Jimenez Unavailable Nehemiah Jimenez MD Primary Care Provider [phone] Abner Young Unavailable Dianne WOOD, Nimo Garza Unavailable [phone] NEHEMIAH JIMENEZ Attending Unavailable ARTUR, DR CERNA Admitting Unavailable ARTUR, DR CERNA Primary Care Unavailable DR NEHEMIAH JIMENEZ Consulting Unavailable ARTUR, DR CERNA Attending Unavailable ARTUR, DR CERNA Admitting Unavailable ARTUR, DR CERNA Primary Care Unavailable Nehemiah Jimenez MD Primary Care Provider [phone] Abner Young Unavailable Dianne WOOD, Nimo Garza Unavailable [phone] MATT WILLIS Referring Unavailable AMTT WILLIS Attending Unavailable MATT WILLIS Admitting Unavailable [...] mouth daily as directed. As directed by [facility] coumadin clinic. 0 10/21/2018 Active Comment on above: Take 5 mg by mouth d aily as directed. As directed by [facility] coumadin clinic. Problems Active Problems [...] Test Name Value Interpretation Reference Range Facility [facility] 06-22-2023 [facility] Electrophysiology Consult Note Reason for [...] At one point was being seeing by [facility] EP for PPM but no PPM placed. [...] 125, triglycerides 162, hemoglobin A1c 5.4 Per [facility] cardiology 09/2020 HISTORY OF PRESENT ILLNESS: Mr. [...] on file Intimate Partner Violence: Unknown (04/10/2023) [place] Safety & Environment Fear of Current or [...] Constitutional Gener (more content not included)... Normal [facility] NURSNOTEon 06-22-2023 NURSNOTE RN educated pt on d/ c instructions. RN encouraged pt to voice any questions or concerns. Pt verbalizes no questions or concerns at this time. Pt was wheeled off of unit with all of belongings. Normal [facility] Office Visiton 06-02-2023 Follow-up visit [id number] MarcelleIndio hagan as L 1960 M [facility] Provider Department Center 06/02/2023 241-MATT WILLIS SAMUEL Riggins Family History Problem Relation Age of Onset Cancer Mother Cancer Father Diabetes Sister Cancer Brother Diabetes Brother Family Status - Relation Status Age at Mother Father Sister Brother Level of Service:12296 [place] OFFICE/OUTPATIENT NEW MODERATE MDM 45 MINUTES Normal [facility] 36on 04-17-2023 36 He can restart his toprol XL 100mg once daily only [facility] Office Visiton 04-15-2023 Follow-up visit [id number] MarcelleIndio hagan hcristi L 1960 M Date Provider Department Center 04/15/2023 Luke6-HONORIO [facility]ANS SAMUEL Riggins Family History Problem Relation Age of Onset Cancer Mother Cancer Father Diabetes Sister Cancer Brother Diabetes Brother Family Status - Relation Status Age at Mother Father Sister Brother Level of Service:38681 [place] OFFICE/OUTPATIENT NEW MODERATE MDM 45 MINUTES Reason for Visit and Comments: New Patient [632] - A Fib Normal [facility] CBC AUTO DIFFon 12-14-2021 BASO # 0.0 103/ul Normal 0.0-0.1 [facility] Comment on above: Performed By: #### C BC #### [facility] [address] [address] [address] Pérez Mg Basophils/100 WBC (Bld) 0.6 % Normal 0.2-2.0 [facility] Comment on above: Performed By: #### C BC #### [facility] [address] [address] [address] Pérez Mg EO # 0.5 103/ul Normal 0.0-0.7 [facility] Comment on above: Performed By: #### C BC #### [facility] [address] [address] [address] Pérez Mg Eosinophils/100 WBC (Bld) 8.6 % Critically high 0.9-7.0 [facility] Comment on above: Performed By: #### C BC #### [facility] [address] [address] [address] Pérez Mg Erythrocyte distribution width (RBC) [Ratio] 13.2 % Normal 11.0-15.0 [facility] Comment on above: Performed By: #### C BC #### [facility] [address] [address] [address] Pérez Mg Hematocrit (Bld) [Volume fraction] 43.2 % Normal 42.0-54.0 [facility] Comment on above: Performed By: #### C BC #### [facility] [address] [address] [address] Pérez Mg Hemoglobin (Bld) [Mass/Vol] 14.6 g/dL Normal 14.0-18.0 [facility] Comment on above: Performed By: #### C BC #### [facility] [address] [address] [address] Pérez Mg IG # 0.06 10e3/ul Critically high 0.00-0.03 [facility] Comment on above: Performed By: #### C BC #### [facility] [address] [address] [address] Pérez Mg IG % 1.0 % Critically high 0.0-0.5 [facility] Comment on above: Performed By: #### C BC #### [facility] [address] [address] [address] Pérez Mg LYMPH # 1.1 103/ul Critically low 1.2-3.8 [facility] Comment on above: Performed By: #### C BC #### [facility] [address] [place] [address] Dr. Pérez Mg Lymphocytes/100 WBC (Bld) 17.5 % Critically low 20.5-60.0 [facility] Comment on above: Performed By: #### C BC #### [facility] [address] [place] [address] Dr. Pérez Mg MANUAL DIFF REQ NO Normal [facility] Comment on above: Performed By: #### C BC #### [facility] [address] [place] [address] Dr. Pérez Mg MCH (RBC) [Entitic mass] 29.0 pg Normal 25.9-34.0 [facility] Comment on above: Performed By: #### C BC #### [facility] [address] [place] [address] Dr. Pérez Mg MCHC (RBC) [Mass/Vol] 33.8 g/dL Normal 29.9-35.2 [facility] Comment on above: Performed By: #### C BC #### [facility] [address] [place] [address] Dr. Pérez Mg MCV (RBC) [Entitic vol] 85.9 fL Normal 80.0-94.0 [facility] Comment on above: Performed By: #### C BC #### [facility] [address] [place] [address] Dr. Pérez Mg MONO # 0.5 103/ul Normal 0.3-0.8 [facility] Comment on above: Performed By: #### C BC #### [facility] [address] [place] [address] Dr. Pérez Mg Monocytes/100 WBC (Bld) 8.3 % Normal 1.7-12.0 [facility] Comment on above: Performed By: #### C BC #### [facility] [address] [place] [address] Dr. Pérez Mg NEUT # 4.0 103/ul Normal 1.4-6.5 [facility] Comment on above: Performed By: #### C BC #### [facility] [address] [address] [address] Pérez Mg Neutrophils/100 WBC (Bld) 64.0 % Normal 43.0-75.0 [facility] Comment on above: Performed By: #### C BC #### [facility] [address] [address] [address] Pérez Mg Platelet mean volume (Bld) [Entitic vol] 9.1 fL Critically low 9.5-13.5 [facility] Comment on above: Performed By: #### C BC #### [facility] [address] [address] [address] Pérez Mg PLT 213 103/ul Normal 150-450 [facility] Comment on above: Performed By: #### C BC #### [facility] [address] [place] [address] Dr. Pérez Mg RBC 5.03 106/ul Normal 4.70-6.10 [facility] Comment on above: Performed By: #### C BC #### [facility] [address] [place] [address] Dr. Pérez Mg WBC 6.3 103/ul Normal 4.0-11.0 [facility] Comment on above: Performed By: #### C BC #### [facility] [address] [place] [address] Dr. Pérez Mg GLYCOHEMOGLOBIN A1Con 2021 ADA RECOMMENDATION SEE BELOW Normal [facility] Comment on above: Result Comment: ADA RECOMMENDED LIMIT 4.0 - 6.0 ADA THERAPEUTIC TARGET < 7.0 ACTION SUGGESTED > 7.0 Performed By: #### A 1C #### [facility] [address] [place] [address] Dr. Pérez Mg Glucose [Mass/Vol] 105 mg/dL Normal [facility] Comment on above: Performed By: #### A 1C #### [facility] [address] [place] [address] Dr. Pérez Mg HbA1c (Bld) [Mass fraction] 5.3 % Normal 4.5-6.2 [facility] Comment on above: Performed By: #### A 1C #### [facility] [address] [address] [address] Pérez Mg LIPID PROFILEon 12-14-2021 CHOL-HDL RATIO NORM SEE BELOW Normal [facility] Comment on above: Result Comment: 3.3 - 4.4 LOW RISK 4.4 - 7.1 AVERAGE RISK 7.1 - 11.0 MODERATE RISK >11.0 HIGH RISK Performed By: #### L IPID, CMP #### [facility] [address] [address] [address] Pérez Mg Cholesterol [Mass/Vol] 201 mg/dL Critically high <=200 [facility] Comment on above: Performed By: #### L IPID, CMP #### [facility] [address] [address] [address] Pérez Mg Cholesterol in HDL [Mass/Vol] 41 mg/dL Normal 40-60 [facility] Comment on above: Performed By: #### L IPID, CMP #### [facility] [address] [address] [address] Pérez Mg Cholesterol in LDL [Mass/Vol] 122.8 mg/dL Normal [facility] Comment on above: Performed By: #### L IPID, CMP #### [facility] [address] [address] [address] Pérez Mg Cholesterol.total/Ch olesterol in HDL [Mass ratio] 4.9 {ratio} Normal [facility] Comment on above: Performed By: #### L IPID, CMP #### [facility] [address] [address] [address] Pérez Mg HDL NORMAL > or = 60 mg/dl - LO W CARDIOVASCULAR RISK <40 mg/dl - HIGH CARDIOVASCULAR RISK Normal [facility] Comment on above: Performed By: #### L IPID, CMP #### [facility] [address] [place] [address] Dr. Pérez Mg LDL CALC NORMAL SEE BELOW Normal [facility] Comment on above: Result Comment: <100 mg/dl OPTIMAL 100 - 129 mg/dl NEAR OR ABOVE OPTIMAL 130 - 159 mg/dl BORDERLINE HIGH 160 - 189 mg/dl HIGH >190 mg/dl VERY HIGH Performed By: #### L IPID, CMP #### [facility] [address] [place] [address] Dr. Pérez Mg Triglyceride [Mass/Vol] 186 mg/dL Critically high <=150 [facility] Comment on above: Performed By: #### L IPID, CMP #### [facility] [address] [place] [address] Dr. Pérez Mg VLDL CALC 37.2 mg/dL Normal [facility] Comment on above: Performed By: #### L IPID, CMP #### [facility] [address] [place] [address] Dr. Pérez Mg PROF 14(COMP METB)on 022 Albumin [Mass/Vol] 3.9 g/dL Normal 3.4-5.0 [facility] Comment on above: Performed By: #### L IPID, CMP #### [facility] [address] [place] [address] Dr. Pérez Mg Albumin/Globulin [Mass ratio] 1.1 {ratio} Normal [facility] Comment on above: Performed By: #### L IPID, CMP #### [facility] [address] [place] [address] Dr. Pérez Mg ALP [Catalytic activity/Vol] 65 U/L Normal 46-116 [facility] Comment on above: Performed By: #### L IPID, CMP #### [facility] [address] [place] [address] Dr. Pérez Mg ALT [Catalytic activity/Vol] 41 U/L Normal 16-63 [facility] Comment on above: Performed By: #### L IPID, CMP #### [facility] [address] [place] [address] Dr. Pérez Mg Anion gap [Moles/Vol] 10.3 mmol/L Normal [facility] Comment on above: Performed By: #### L IPID, CMP #### [facility] [address] [place] [address] Dr. Pérez Mg AST [Catalytic activity/Vol] 33 U/L Normal 15-37 [facility] Comment on above: Performed By: #### L IPID, CMP #### [facility] [address] [place] [address] Dr. Pérez Mg Bilirubin [Mass/Vol] 0.5 mg/dL Normal 0.2-1.0 [facility] Comment on above: Performed By: #### L IPID, CMP #### [facility] [address] [place] [address] Dr. Pérez Mg Calcium [Mass/Vol] 9.0 mg/dL Normal 8.5-10.1 [facility] Comment on above: Performed By: #### L IPID, CMP #### [facility] [address] [place] [address] Dr. Pérez Mg Chloride [Moles/Vol] 103 mmol/L Normal 98-107 [facility] Comment on above: Performed By: #### L IPID, CMP #### [facility] [address] [place] [address] Dr. Pérez gM CO2 [Moles/Vol] 27.7 mmol/L Normal 21.0-32.[address] [facility] Comment on above: Performed By: #### L IPID, CMP #### [facility] [address] [place] [address] Dr. Pérez Mg Creatinine [Mass/Vol] 0.73 mg/dL Normal 0.70-1.30 [facility] Comment on above: Performed By: #### L IPID, CMP #### [facility] [address] [place] [address] Dr. Pérez Mg EGFR-AF FAROESE >60 Normal >=60 [facility] Comment on above: Performed By: #### L IPID, CMP #### [facility] [address] [place] [address] Dr. Pérez Mg EGFR-NON AF FAROESE >60 Normal >=60 [facility] Comment on above: Performed By: #### L IPID, CMP #### [facility] [address] [place] [address] Dr. Pérez Mg Globulin (S) [Mass/Vol] 3.6 g/dL Normal [facility] Comment on above: Performed By: #### L IPID, CMP #### [facility] [address] [place] [address] Dr. Pérez Mg Glucose [Mass/Vol] 110 mg/dL Critically high 74-106 [facility] Comment on above: Performed By: #### L IPID, CMP #### [facility] [address] [place] [address] Dr. Pérez Mg Potassium [Moles/Vol] 4.0 mmol/L Normal 3.5-5.1 [facility] Comment on above: Performed By: #### L IPID, CMP #### [facility] [address] [place] [address] Dr. Pérez Mg Protein [Mass/Vol] 7.5 g/dL Normal 6.4-8.2 [facility] Comment on above: Performed By: #### L IPID, CMP #### [facility] [address] [place] [address] Dr. Pérez Mg Sodium [Moles/Vol] 137 mmol/L Normal 136-145 [facility] Comment on above: Performed By: #### L IPID, CMP #### [facility] [address] [place] [address] Dr. Pérez Mg Urea nitrogen [Mass/Vol] 16.0 mg/dL Normal 7.0-18.0 [facility] Comment on above: Performed By: #### L IPID, CMP #### [facility] [address] [place] [address] Dr. Pérez Mg Urea nitrogen/Creatinine [Mass ratio] 21.9 mg/mg Normal [facility] Comment on above: Performed By: #### L IPID, CMP #### [facility] [address] [place] [address] Dr. Pérez Dee 01-28-2021 [place] Telephone (GAIL) NITZA IBANEZ ([id number]) 1960 M Date Time Provider Department 01/28/21 SILVERIODWAINManda REYNOLDS During your visit today, we recorded the following information about you: Aracelis Silveira 01/28/2021 2:35 PM Signed Outside medical records uploaded to [employer]: CT/OT - CTA chest with contrast - 11/07/2020 Allergies As of Date: 01/28/2021 (No Known Allergies) Date Reviewed: 09/26/2020 Reviewed by: Chasity Payton MD - Fully Assessed Reason for Visit: Received Outside Medical Records [[id number]] Cmt: CT/OT - CTA Chest with Contrast [...] mouth daily as directed. As directed by [facility] coumadin clinic. - levothyroxine (SYNTHROID) [...] Encounter Status:Closed by ANA FRAZIER on 01/28/21 [facility] CNOVon 09-26-2020 CNOV Office Visit (CARIMN ) NITZA IBANEZ ([id number]) 1960 M Date Time Provider Department 09/26/20 12:30 PM NIMO ALTMAN During your visit today, we recorded the following information about you: Pulse Respiration Blood pressure Weight 63/minute 12/minute 176/72 69.4 kg Height 1.778 m Nimo Altman MD 10/24/2020 11:55 AM Addendum [facility] Department of Cardiovascular Medicine SECTION OF CARDIOVASCULAR IMAGING OUTPATIENT VISIT DATE September 26, 2020 OUTPATIENT VISIT TYPE NEW PRIMARY CARE PHYSICIAN: Nehemiah Jimenez MD [address] [place] [address] REFERRING PHYSICIAN: Jarrod Luna [address] [place] [id number] CHIEF COMPLAINT: Valvular heart disease HISTORY OF [...] valve disorder - PAF (paroxysmal atrial fibrillation) ([facility]LY [facility]) PAST SURGICAL HISTORY Procedure Laterality Date - [...] mouth daily as directed. As directed by [facility] coumadin clinic. levothyroxine (SYNTHROID) 25 [...] Headache, Impai (more content not included)... Normal [facility] CNOVon 07-26-2020 CNOV Office Visit (CARDMN ) NITZA IBANEZ ([id number]) 1960 M Date Time Provider Department 07/26/20 [...] fibrillation, sudden deaths. 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 . Daughter A AND W. 2 grandchildren. Lives in [place], [place]. Habits: Tobacco: none. Alcohol: never. Caffeine: [...] paralysis-No, Numbness-No, (more content not included)... Normal [facility] 07-20-2020 CNPN Telephone (CARDMN) NITZA IBANEZ ([id number]) 1960 M Date Time Provider Department 07/20/20 JARROD LUNA CARDWY During your visit today, we recorded the following information about you: Aracelis Duvall 07/20/2020 4:14 PM Signed Outside medical records scanned into [employer]. Patient scheduled to see Dr. Jarrod Luna on July 26, 2020. Allergies As of Date: 07/20/2020 (Not on File) Date Reviewed: Never Reviewed Reason for Visit: Received Outside Medical Records [[id number]] Problem List As Of Date: 07/20/2020 (None) Encounter Status:Closed by ARACELIS VALLES on 07/20/20 [facility] CNCOon 07-05-2020 CNCO Letter Text [facility] 06-26-2020 CNPN Telephone (REFPHY) NITZA IBANEZ ([id number]) 1960 M Date Time Provider Department 06/26/20 NO PCP (HISTORICAL) REFPHY During your visit today, we recorded the following information about you: Aj Saez 06/26/2020 12:18 PM Signed Patient: Nitza Ibanez Date of : 1960 Patient phone number: [phone] Referring Provider for the encounter: Nehemiah Jimenez Requesting Provider: Someone that specializes in Valve Disease Reason for requesting visit (RFV/signs and symptoms/diagnosis): Bradycardia, tachycardia Person calling: self Return call to: self Medical Records/Insurance Card scanned into [employer]: Yes Comments: Valve Replacement X2 Allergies As of Date: 06/26/2020 (Not on File) Date Reviewed: Never Reviewed Reason for Visit: External Referrals/resources [909] Problem List As Of Date: 06/26/2020 (None) Encounter Status:Closed by AJ SAEZ on 06/26/20 [facility] 10-27-2019 Facesheet [id number] 0CD:127 Normal [facility] Provider Letter FTMCon 10-25 Provider Letter [facility] Nehemiah Jimenez [address] [facility] [address] Re: NITZA IBANEZ Date of : 1960 Thank your for your referral of Nitza Ibanez who was seen on consultation on 10/25/2019 for epigastric pain and cholelithiasis. I have enclosed my consultation notes for your review. Sincerely, Kevin Martinez MD General Surgery [facility] Ambulatory Clinical Summaryo n 10-25-2019 Ambulatory Clinical Summary {[id number]}CD:[id number] Normal [facility] General Surgery Office/Clini c Noteon 10-25-2019 General Surgery Office/Clinic Note Chief Complaint referral for cholelithiasis [facility] Staff 59 year old male presents on consultation from Dr. Jimenez for cholelithiasis. Complains of intermittent abdominal pain for several years. Denies nausea or vomiting. [place] foods do make symptoms worse. Denies diarrhea. RUQ US completed 09/27/19 reported severe cholelithiasis, htn, pulmonary htn, Marfan's syndrome; reports intermittent upper abdominal pain, seen in [place] ED approximately 1 month ago, had epigastric burning pain, constant, radiating to chest; US revealed cholelithiasis, no acute inflammation, normal ducts; transferred to [place] for cardiac cath, reportedly ok, was to see surgeon at [facility] regarding gallbladder, but never set up appointment; [...] risk for surgical intervention; recommend evaluation at [facility] in [place] for their recommendations; patient would likely have more bleeding issues if developed acute cholecystitis due to anticoagulation, so may benefit from a controlled, elective operation. patient will f/u with surgeon he was given in [place]; call with problems/questions.see 2. Cholelithiasis (K80.20: Calculus of gallbladder without cholecystitis without obstruction) see # 1 3. GERD (gastroesophageal reflux disease) (K21.9: Gastro-esophageal reflux disease without esophagitis) see # 1 4. 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 Normal [facility] Comment on above: Result Comment: Elec tronically Signed By: JOAN WOOD, Kevin Drake\Date and Time Signed: 10/25/19 16:58 EDT Physician Referralon 020 Physician Referral [id number] 0CD:127 Normal [facility] Physician Referralon 020 Physician Referral [id number] CD:127 Normal [facility] RAD - Ultrasound Reporton RAD - Ultrasound Report [id number] 0CD:127 Normal [facility] Complete Blood Count Auto Di ffon 05-28-2018 Basophils #/vol (Bld) 0.0 10*3/uL Normal 0.0-0.2 [facility] Comment on above: Order Comment: Comme nt send tubes to 210 Result Comment: PERF ORMED BY: [place] [address] PATHOLOGIST [employer] LESLYE GONZALEZ M.D. Performed By: #### C BC #### [address] Basophils/100 WBC (Bld) 0.7 % Normal . [facility] Comment on above: Order Comment: Comme nt send tubes to 210 Performed By: #### C BC #### [address] Eosinophils #/vol (Bld) 0.3 10*3/uL Normal 0.0-0.45 [facility] Comment on above: Order Comment: Comme nt send tubes to 210 Performed By: #### C BC #### [address] Eosinophils/100 WBC (Bld) 6.0 % Normal . [facility] Comment on above: Order Comment: Comme nt send tubes to 210 Performed By: #### C BC #### [address] Erythrocyte distribution width Ratio (RBC) 14.1 % Normal 12.0-14.8 [facility] Comment on above: Order Comment: Comme nt send tubes to 210 Performed By: #### C BC #### [address] Hematocrit Volume Fraction (Bld) 44.5 % Normal 38.8-50.0 [facility] Comment on above: Order Comment: Comme nt send tubes to 210 Performed By: #### C BC #### [address] Hemoglobin mass conc (Bld) 15.1 g/dL Normal 13.0-17.0 [facility] Comment on above: Order Comment: Comme nt send tubes to 210 Performed By: #### C BC #### [address] Lymphocytes #/vol (Bld) 0.7 10*3/uL Low 1.00-4.8 [facility] [facility] Comment on above: Order Comment: Comme nt send tubes to 210 Performed By: #### C BC #### [address] Lymphocytes/100 WBC (Bld) 11.9 % Normal . [facility] Comment on above: Order Comment: Comme nt send tubes to 210 Performed By: #### C BC #### [facility] [address] [place] [address] MCH Entitic mass (RBC) 33.9 g/dL Normal 32.5-35.6 [facility] Comment on above: Order Comment: Comme nt send tubes to 210 Performed By: #### C BC #### [address] MCH Entitic mass (RBC) 28.8 pg Normal 27.5-35.2 [facility] Comment on above: Order Comment: Comme nt send tubes to 210 Performed By: #### C BC #### [address] MCV Entitic volume (RBC) 85.0 fL Normal 83.5-101 [facility] Comment on above: Order Comment: Comme nt send tubes to 210 Performed By: #### C BC #### [address] Monocytes #/vol (Bld) 0.7 10*3/uL Normal 0.0-0.8 [facility] Comment on above: Order Comment: Comme nt send tubes to 210 Performed By: #### C BC #### [address] Monocytes/100 WBC (Bld) 11.8 % Normal . [facility] Comment on above: Order Comment: Comme nt send tubes to 210 Performed By: #### C BC #### [address] Neutrophils #/vol (Bld) 3.9 10*3/uL Normal 1.8-7.7 [facility] Comment on above: Order Comment: Comme nt send tubes to 210 Performed By: #### C BC #### [facility] [address] [place] [address] Neutrophils/100 WBC (Bld) 69.6 % Normal . [facility] Comment on above: Order Comment: Comme nt send tubes to 210 Performed By: #### C BC #### [facility] [address] [place] [address] Nucleated RBC/100 WBC Ratio (Bld) 0.0 % Normal 0-0.5 [facility] Comment on above: Order Comment: Comme nt send tubes to 210 Performed By: #### C BC #### [facility] [address] [place] [address] Platelet mean volume Entitic volume (Bld) 7.4 fL Normal 6.6-10.1 [facility] Comment on above: Order Comment: Comme nt send tubes to 210 Performed By: #### C BC #### [facility] [address] [place] [address] Platelets #/vol (Bld) 237 10*3/uL Normal 150-450 [facility] Comment on above: Order Comment: Comme nt send tubes to 210 Performed By: #### C BC #### [facility] [address] [place] [address] RBC #/vol (Bld) 5.24 10*6/uL Normal 3.90-5.60 [facility] Comment on above: Order Comment: Comme nt send tubes to 210 Performed By: #### C BC #### [facility] [address] [place] [address] WBC #/vol (Bld) 5.6 10*3/uL Normal 4.1-10.5 [facility] Comment on above: Order Comment: Comme nt send tubes to 210 Performed By: #### C BC #### [facility] [address] [place] [address] 05-28-2018 L -- ---- Specimen: Received: 05/28/18 Status: CAIO Sonia Num: [id number] Spec Type: Surgical Subm Dr: Jim Jules Jr, Tissues: A Colon - Polyp (SIGMOID POLYP) Procedures: HE Stain/2, Gross/Micro L4 ---- Patient Age/Sex Location Account Attending Physician ---- Nitza Ibanez/Jenna [id number] Jim Jules Jr, DO ---- SPEC NUM: RECD: 05/28/18 STATUS: VERNONDasha SCOTT NUM: [id number] MARITO: 05/28/18 [facility] DR: Jim Jules Jr, DO ENTERED: [...] microscopic findings support the above pathologic diagnosis. [id number] A. - - SIGMOID POLYP ---- ---- Specimen: [id number] Received: 05/28/18 Status: CAIO Scott Num: [id number] Spec Type: Surgical Subm Dr: Jim Jules Jr, DO Tissues: A Colon - Polyp (SIGMOID POLYP) Procedures: HE Stain/2, Gross/Micro L4 ---- Patient: MarcelleNitza [id number] (Continued) ---- Signed (signature on file) Leslye Gonzalez MD 05/31/18 1553 Normal [facility] Partial Thromboplastin Timeo n 05-28-2018 aPTT Coag time (Bld) 40.4 s High 23.0-35.0 [facility] Comment on above: Order Comment: Comme nt send tubes to 210 Result Comment: PERF ORMED BY: [place] [address] PATHOLOGIST [employer] LESLYE GONZALEZ M.D. Performed By: #### P T, PTT #### [facility] [address] [place], [place] [id number] [place] Prothrombin Time INRon 05-28 INR Coag RelTime (PPP) 1.4 {INR} [facility] Comment on above: Order Comment: Comme [...] Performed By: #### P T, PTT #### [facility] [address] [place], [place] [id number] [facility] Prothrombin time (PT) Coag time (PPP) 16.4 s High 9.0-12.9 [facility] Comment on above: Order Comment: Comme nt send tubes to 210 Performed By: #### P T, PTT #### [facility] [address] [place], [place] [id number] [facility] Encounters Encounter Date Encounter Type Care Provider Facility Start: 08-11-2023 [facility] Start: 06-22-2023 End: 06-22-2023 ambulatory [facility] Start: 06-02-2023 End: 06-02-2023 ambulatory [facility] Start: 04-15-2023 End: 04-15-2023 ambulatory HONORIO [facility] Start: 11-05-2022 Refill Jarrod Amezcua Work Phone: Cardiology Comment on above: Refill Request Start: 12-18-2021 Encounter for genera l adult medical examination without abnormal findings DR NEHEMIAH JIMENEZ [facility] Start: 12-14-2021 End: 12-15-2021 ambulatory [...] Comment on above: Performed By: #### P [facility] #### [facility] [address] [place] [address] Dr. Pérez Mg Plan of Treatment Date Care Activity Detail Author Start: 10-17-2022 Influenza vaccination Influenza Vacc ine (#1) [facility] Start: 02-16-2022 Depression Assessment Depression Ass essment [facility] Start: 10-17-2021 Influenza vaccination INFLUENZA (#1) [facility] Start: 06-18-2020 COVID-19 VACCINE (2 - Booster for Rowdy series) COVID-19 VACCINE (2 - Booster for Rowdy series) [facility] Start: 2014 PROSTATE CANCER SCRE ENING DISCUSSION PROSTATE CANCER SCREENING DISCUSSION [facility] Start: 2009 SHINGRIX VACCINE (1 of 2) SHINGRIX V ACCINE (1 of 2) [facility] Start: 2004 COLOGUARD (FIT-DNA) COLOGUARD (FIT-D NA) [facility] Start: 2004 Colonoscopy COLONOSCOPY [facility] Start: 2004 COLORECTAL CANCER SCREENING COLORECTAL CANCER SCREENING [facility] Start: [address] COLONOGRAPHY [facility] Start: 2004 DIABETES SCREEN DIABETES SCREEN [facility] Start: 2004 Diabetes Screening Diabetes Screenin g [facility] Start: 2004 FECAL OCCULT BLOOD FECAL OCCULT BLOO D [facility] Start: 2004 SIGMOIDOSCOPY SIGMOIDOSCOPY [facility] Start: 1994 Lipid 1996 panel - S brandon or Plasma Lipid Screening [facility] Start: 1994 LIPID SCREEN LIPID SCREEN [facility] Start: 1978 Urine microalbumin profile [facility] Start: 1977 ANNUAL 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 ALAN DISEASE VISIT ANNUAL PCP TEAM CHRONIC DISEASE VISIT [facility] Start: 1977 BP CONTROLLED (<130/80) BP CONTROLLE D (<130/80) [facility] Start: 1977 HEPATITIS C SCREENING HEPATITIS C SC REENING [facility] Start: 1977 HIV SCREENING HIV SCREENING [facility] Start: 1971 Adult depression scr eening assessment DEPRESSION SCREENING [facility] Immunizations Immunization Date Immunization Notes Care Provider Fa ciligiselle 12-28-2019 influenza virus vacc ine, unspecified formulation Jarrod Luna MD Work Phone: [facility] Payers Date Payer Category Payer Unknown [id number] 2023 Unknown [id number] 2020 Unknown [employer] SS PPO [id number] 2020-Present [phone] [address] [place] [address] PPO [id number] 2013 Unknown [facility] O [id number] 2013-Present O [id number] 1959 Unknown [id number] 1959 Unknown [id number] 1959 Self-pay 1960 Unknown [id number] Social History Date Type Detail Facility Tobacco smoking stat [facility] Unknown if ever smoked [facility] Start: 1960 Sex Assigned At Not on file [facility] Start: 07-26-2020 Tobacco smoking stat [facility] Never smoked tobacco [facility] Work Phone: Start: 07-26-2020 Tobacco use and exposure Smokeless tobacco non-user [facility] Work Phone: Start: 09-26-2020 Alcohol intake Lifetime non-d jose e (finding) [facility] Start: 07-26-2020 History SDOH Alcohol Frequency 1 [facility] Start: 07-26-2020 End: 09-26-2020 History of Social function [facility] Start: 07-26-2020 End: 09-26-2020 Tobacco use panel [facility] National Score (1-10 0), lower number is lower risk Not on file [facility] Clinical Notes 06-26-2020 to 06-22-2023 Telephone Encounter [...] the sternum on the left using the [employer] tool. The loop recorder was then [...] the incision. Matt Willis MD Cardiac Electrophysiology. [facility] 06-02-2023 Note [facility] Consult Note Reason [...] At one point was being seeing by [facility] EP for PPM but no PPM placed. [...] 125, triglycerides 162, hemoglobin A1c 5.4 Per [facility] cardiology 09/2020 HISTORY OF PRESENT ILLNESS: Mr. [...] for irregular he (more content not included)... [facility] 04-15-2023 Note [facility] Consult Note Reason [...] At one point was being seeing by [facility] EP for PPM but no PPM placed [...] 125, triglycerides 162, hemoglobin A1c 5.4 Per [facility] cardiology 09/2020 HISTORY OF PRESENT ILLNESS: Mr. [...] on file Intimate Partner Violence: Unknown (04/10/2023) [place] Safety & Environment Fear of Current or [...] by mouth every (more content not included)... [facility] 11-05-2022 Miscellaneous Notes Call from patient requesting refill. Requested Prescriptions Pending Prescriptions Disp Refills losartan (COZAAR) 50 mg tablet [Pharmacy Med Name: LOSARTAN POTASSIUM 50 MG TAB] 180 tablet 3 Sig: take one tablet by mouth twice a day Patient last seen 09/26/20 Mary Fowler documented in this encounter [facility] 09-25-2021 Miscellaneous Notes Electronic request for refill. Requested Prescriptions Pending Prescriptions Disp Refills losartan (COZAAR) 50 mg tablet [Pharmacy Med Name: LOSARTAN POTASSIUM 50 MG TAB] 180 tablet 3 Sig: TAKE 1 TABLET BY MOUTH TWICE A DAY Last office visit in was 07/26/2020 Aracelis Silveira documented in this encounter [facility] 09-26-2020 Note HNO ID: [id number] Author: Nimo Altman MD Service: ? Author Type: Physician Type: Progress Notes Filed: 10/24/2020 11:55 AM Note Text: [facility] Department of Cardiovascular Medicine SECTION OF CARDIOVASCULAR IMAGING OUTPATIENT VISIT DATE September 26, 2020 OUTPATIENT VISIT TYPE NEW PRIMARY CARE PHYSICIAN: Nehemiah Jimenez MD [address] [place] [address] REFERRING PHYSICIAN: Jarrod Luna [address] [place] [id number] CHIEF COMPLAINT: Valvular heart disease HISTORY OF [...] valve disorder - PAF (paroxysmal atrial fibrillation) ([facility]) PAST SURGICAL HISTORY Procedure Laterality Date - [...] mouth daily as [facility]. [facility] levothyroxine (SYNTHROID) 25 [...] GASTROINTESTINAL: Negative for: (more content not included)... [facility] 07-26-2020 Note HNO ID: [id number] Author: Daksha Weir Service: ? Author Type: ? Type: Progress Notes Filed: 07/26/2020 2:25 PM Note Text: EVENT MONITOR DISPOSABLE PATCH INSTRUCTIONS Patient Name: Nitza Ibanez [facility] Number: [id number] Skin prepped and cleansed with alcohol Patch secured to prepped area Monitor Activated Serial #: [id number] Patient Instructed: 1.) Prescribed order timeframe 2.) Bathing guidelines 3.) Usage of event button and diary documentation 4.) Return of monitor at the end of prescribed order 5.) Call with problems [phone] or [phone] ext. [phone] Patient expresses a good understanding of instructions Daksha Weir [facility] 07-26-2020 Note Education (CARDMN) MARCELLENITZA ([id number]) 1960 M Date Time Provider Department 07/26/20 2:00 PM [facility] CARDMN Reason for Visit: ZIO PATCH [Other] Progress Notes: Daksha Weir 07/26/2020 2:25 PM Signed EVENT MONITOR DISPOSABLE PATCH INSTRUCTIONS Patient Name: Nitza Ibanez Clinic Number: [id number] Skin prepped and cleansed with alcohol Patch secured to prepped area Monitor Activated Serial #: [id number] Patient Instructed: 1.) Prescribed order timeframe 2.) Bathing guidelines 3.) Usage of event button and diary documentation 4.) Return of monitor at the end of prescribed order 5.) Call with problems [phone] or [phone] ext. [phone] Patient expresses a good understanding of instructions [...] Encounter Status:Closed by DAKSHA GRAVES on 07/26/20 [facility] 07-26-2020 Note HNO ID: [id number] Author: Jarrod Luna MD Service: ? Author [...] fibrillation, sudden deaths. 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 . Daughter A AND W. 2 grandchildren. Lives in [place], [place]. Habits: Tobacco: none. Alcohol: never. Caffeine: [...] sweating-No, Frequent urination (more content not included)... [facility] 07-26-2020 Note HNO ID: [id number] Author: Jarrod Luna MD Service: ? Author [...] aortic valve with sinus bradycardia 54 bpm. [facility] 06-26-2020 Miscellaneous Notes Patient: Nitza Ibanez Date of : 1960 Patient phone number: [phone] Referring Provider for the encounter: Nehemiah Jimenez Requesting Provider: Someone that specializes in Valve Disease Reason for requesting visit (RFV/signs and symptoms/diagnosis): Bradycardia, tachycardia Person calling: self Return call to: self Medical Records/Insurance Card scanned into [employer]: Yes Comments: Valve Replacement X2 documented in this encounter [facility] Summary Purpose Family History No Family [...] and content) DATE CREATED AUTHOR 07/08/2018 [facility] DATE CREATED AUTHOR AUTHOR'S ORGANIZ ATION 10/27/2019 [facility] DATE CREATED AUTHOR AUTHOR'S ORGANIZ ATION 03/19/2021 [facility] DATE CREATED AUTHOR AUTHOR'S ORGANIZ ATION [facility]/02/2022 [facility] DATE CREATED AUTHOR AUTHOR'S ORGANIZ ATION 08/12/2023 [facility] Source Comments (unrecognize d section and content) In the event this informatio n is protected by the Federal Confidentiality of Alcohol and Drug Abuse Patient Records regulations: The Federal rules restrict any use of the information to criminally investigate or prosecute any alcohol or drug abuse patient.[facility] the event this information is protected by the Federal Confidentiality of Alcohol and Drug Abuse Patient Records regulations: The Federal rules restrict any use of the information to criminally investigate or prosecute any alcohol or drug abuse patient.[facility] the event this information is protected by the Federal Confidentiality of Alcohol and Drug Abuse Patient Records regulations: The Federal rules restrict any use of the information to criminally investigate or prosecute any alcohol or drug abuse patient.[facility] Reason for Visit (unrecogniz ed section and content) Reason Comments External Referrals/resources Reason Comments Refill Request Care Teams (unrecognized sec tion and content) 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 Relationship Specialty Start Date End Date Nehemiah Jimenez MD [address] [place] [address] PCP - General Family Practice 06/06/13 Abner Young [address] [address] Referring Cardiology 07/26/20 Nimo Altman MD [address] [place] [address] Primary Staff Physician Cardiology 09/26/20 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 Relationship Specialty Start Date End Date Nehemiah Jimenez MD PCP - General Family Medicine 06/06/13 Abner Young [address] [address] Referring Cardiology 07/26/20 Nimo Altman MD [address] [place] [address] Primary Staff Physician Cardiology 09/26/20 [...] BE BASED ON THE PRIMARY CLINICAL RECORDS. [employer] provides no warranty or guarantee of the accuracy or completeness of information in this document.
== END 2023-09-04 11:54 | disposition home or self-care (01) ==
LOC: WC 11:53
PROVIDERS: PCP Family Medicine; Visit Provider Podiatrist Foot & Ankle Surgery
DX: L97.412 Non-pressure chronic ulcer of right heel and midfoot with fat layer exposed (principal)
CPT/HCPCS: 11042; G0463

== ENCOUNTER 2023-09-17 00:36 | Outpatient (RCR) | payer BC, SELFPAY | END 2023-10-16 10:17 | disposition home or self-care (01) | LOC: MM 00:36 | PROVIDERS: PCP Family Medicine; Visit Provider Internal Medicine | DX: Z51.81 Encounter for therapeutic drug level monitoring (principal); Z79.01 Long term (current) use of anticoagulants; I48.91 Unspecified atrial fibrillation ==

== ENCOUNTER 2023-09-22 15:50 | Outpatient (OUT) | payer BC, SELFPAY | END 2023-09-22 15:51 | disposition home or self-care (01) | LOC: WC 15:50 | PROVIDERS: PCP Family Medicine; Visit Provider Physician Assistant | DX: L97.412 Non-pressure chronic ulcer of right heel and midfoot with fat layer exposed (principal) | CPT/HCPCS: G0463 ==

== ENCOUNTER 2023-10-13 15:21 | Outpatient (OUT) | payer BC, SELFPAY | END 2023-10-13 15:22 | disposition home or self-care (01) | LOC: WC 15:21 | PROVIDERS: PCP Family Medicine; Visit Provider Physician Assistant | DX: L97.412 Non-pressure chronic ulcer of right heel and midfoot with fat layer exposed (principal) | CPT/HCPCS: A6213; G0463 ==

== ENCOUNTER 2023-10-19 01:42 | Outpatient (RCR) | payer BC, SELFPAY | END 2023-11-16 23:57 | disposition home or self-care (01) | LOC: MM 01:42 | PROVIDERS: PCP Family Medicine; Visit Provider Internal Medicine | DX: Z51.81 Encounter for therapeutic drug level monitoring (principal); Z79.01 Long term (current) use of anticoagulants; I48.91 Unspecified atrial fibrillation ==

== ENCOUNTER 2023-11-02 15:23 | Outpatient (OUT) | payer BC, SELFPAY ==
--- OUTSIDE RECORDS SUMMARY | 2023-11-02 15:55 | XMS_ITS | CCD ---
Author Organization [facility] Inform ion Partnership [facility] Care Team Providers Care Program Arranger Name Role Phone Nehemiah Jimenez Primary Care Provider Nehemiah Jimenez Unavailable Nehemiah Jimenez MD Primary Care Provider [id number] Abner Young Unavailable Dianne WOOD, Nimo Garza Unavailable DR NEHEMIAH JIMENEZ Attending Unavailable ARTUR, DR CERNA Admitting Unavailable ARTUR, DR CERNA Primary Care Unavailable ARTUR, DR CERNA Consulting Unavailable ARTUR, DR CERNA Attending Unavailable ARTUR, DR CERNA Admitting Unavailable ARTUR, DR CERNA Primary Care Unavailable Nehemiah Jimenez MD Primary Care Provider [phone] Abner Young Unavailable Dianne WOOD, Nimo Garza Unavailable [phone] HONORIO EVANS Attending Unavailable MATT WILLIS Admitting Unavailable MATT WILLIS Attending Unavailable MATT WILLIS Attending Unavailable MATT WILLIS Attending Unavailable MATT WILLIS Referring Unavailable MATT WILLIS Referring Unavailable MACARENA GARCIA Attending Unavailable Medications Current Medications Medication Drug [...] mouth daily as directed. As directed by [facility] coumadin clinic. 0 10/21/2018 Active Comment on above: Take 5 mg by mouth d aily as directed. As directed by [facility] coumadin clinic. Problems Active Problems Problem Classification [...] Test Name Value Interpretation Reference Range Facility Office Visiton 09-29-2023 Follow-up visit [id number] Indio Ibanez 1960 M Date Provider Department Center 09/29/2023 MATT STANFORD SAMUEL Reinaevmarv Riggins Family History Problem Relation Age of Onset Cancer Mother Cancer Father Diabetes Sister Cancer Brother Diabetes Brother Family Status - Relation Status Age at Mother Father Sister Brother Level of Service:21032 [place] OFFICE/OUTPATIENT ESTABLISHED LOW MDM 20 MIN Normal [facility] HPon 06-22-2023 [facility] Electrophysiology Consult Note Reason for visit: AF, [...] At one point was being seeing by [facility] EP for PPM but no PPM [...] 125, triglycerides 162, hemoglobin A1c 5.4 Per [facility] cardiology 09/2020 HISTORY OF PRESENT ILLNESS: [...] on file Intimate Partner Violence: Unknown (04/10/2023) [place] Safety & Environment Fear of Current or [...] Constitutional Gener (more content not included)... Normal [facility] NURSNOTEon 06-22-2023 NURSNOTE RN educated pt on d/ c instructions. RN encouraged pt to voice any questions or concerns. Pt verbalizes no questions or concerns at this time. Pt was wheeled off of unit with all of belongings. [facility] Office Visiton 06-02-2023 Follow-up visit [id number] Indio Ibanez 1960 M Date Provider Department Center 06/02/2023 [place]-MATT WILLIS SAMUEL Riggins Family History Problem Relation Age of Onset Cancer Mother Cancer Father Diabetes Sister Cancer Brother Diabetes Brother Family Status - Relation Status Age at Mother Father Sister Brother Level of Service:04868 [place] OFFICE/OUTPATIENT NEW MODERATE MDM 45 MINUTES Normal [facility] 36on 04-17-2023 36 He can restart his toprol XL 100mg once daily only Normal [facility] Office Visiton 04-15-2023 Follow-up visit [id number] Indio Ibanez 1960 M Date Provider Department Center 04/15/2023 [place]-HONORIO EVANS SAMUEL Riggins Family History Problem Relation Age of Onset Cancer Mother Cancer Father Diabetes Sister Cancer Brother Diabetes Brother Family Status - Relation Status Age at Mother Father Sister Brother Level of Service:36400 [place] OFFICE/OUTPATIENT NEW MODERATE MDM 45 MINUTES Reason for Visit and Comments: New Patient [632] - A Fib Normal [facility] CBC AUTO DIFFon 12-14-2021 BASO # 0.0 103/ul Normal 0.0-0.1 [facility] Comment on above: Performed By: #### C BC #### [facility] [address] [address] [address] Pérez Mg Basophils/100 WBC (Bld) 0.6 % Normal 0.2-2.0 [facility] Comment on above: Performed By: #### C BC #### [facility] [address] [address] [address] Pérez Mg EO # 0.5 103/ul Normal 0.0-0.7 [facility] Comment on above: Performed By: #### C BC #### [facility] [address] [address] [address] Pérez Mg Eosinophils/100 WBC (Bld) 8.6 % Critically high 0.9-7.0 [facility] Comment on above: Performed By: #### C BC #### [facility] [address] [address] [address] Pérez Mg Erythrocyte distribution width (RBC) [Ratio] 13.2 % Normal 11.0-15.0 [facility] Comment on above: Performed By: #### C BC #### [facility] [address] [address] [address] Pérez Mg Hematocrit (Bld) [Volume fraction] 43.2 % Normal 42.0-54.0 [facility] Comment on above: Performed By: #### C BC #### [facility] [address] [address] [address] Pérez Mg Hemoglobin (Bld) [Mass/Vol] 14.6 g/dL Normal 14.0-18.0 [facility] Comment on above: Performed By: #### C BC #### [facility] [address] [address] [address] Pérez Mg IG # 0.06 10e3/ul Critically high 0.00-0.03 [facility] Comment on above: Performed By: #### C BC #### [facility] [address] [place] [address] Dr. Pérez Mg IG % 1.0 % Critically high 0.0-0.5 [facility] Comment on above: Performed By: #### C BC #### [facility] [address] [address] [address] Pérez Mg LYMPH # 1.1 103/ul Critically low 1.2-3.8 [facility] Comment on above: Performed By: #### C BC #### [facility] [address] [place] [address] Dr. Pérez Mg Lymphocytes/100 WBC (Bld) 17.5 % Critically low 20.5-60.0 [facility] Comment on above: Performed By: #### C BC #### [facility] [address] [place] [address] Dr. Pérez Mg MANUAL DIFF REQ NO Normal [facility] Comment on above: Performed By: #### C BC #### [facility] [address] [place] [address] Dr. Pérez Mg MCH (RBC) [Entitic mass] 29.0 pg Normal 25.9-34.0 [facility] Comment on above: Performed By: #### C BC #### [facility] [address] [place] [address] Dr. Pérez Mg MCHC (RBC) [Mass/Vol] 33.8 g/dL Normal 29.9-35.2 [facility] Comment on above: Performed By: #### C BC #### [facility] [address] [place] [address] Dr. Pérez Mg MCV (RBC) [Entitic vol] 85.9 fL Normal 80.0-94.0 [facility] Comment on above: Performed By: #### C BC #### [facility] [address] [place] [address] Dr. Pérez Mg MONO # 0.5 103/ul Normal 0.3-0.8 [facility] Comment on above: Performed By: #### C BC #### [facility] [address] [address] [address] Pérez Mg Monocytes/100 WBC (Bld) 8.3 % Normal 1.7-12.0 [facility] Comment on above: Performed By: #### C BC #### [facility] [address] [address] [address] Pérez Mg NEUT # 4.0 103/ul Normal 1.4-6.5 [facility] Comment on above: Performed By: #### C BC #### [facility] [address] [address] [address] Pérez Mg Neutrophils/100 WBC (Bld) 64.0 % Normal 43.0-75.0 [facility] Comment on above: Performed By: #### C BC #### [facility] [address] [place] [address] Dr. Pérez Mg Platelet mean volume (Bld) [Entitic vol] 9.1 fL Critically low 9.5-13.5 [facility] Comment on above: Performed By: #### C BC #### [facility] [address] [place] [address] Dr. Pérez Mg PLT 213 103/ul Normal 150-450 [facility] Comment on above: Performed By: #### C BC #### [facility] [address] [place] [address] Dr. Pérez Mg RBC 5.03 106/ul Normal 4.70-6.10 [facility] Comment on above: Performed By: #### C BC #### [facility] [address] [place] [address] Dr. Pérez Mg WBC 6.3 103/ul Normal 4.0-11.0 [facility] Comment on above: Performed By: #### C BC #### [facility] [address] [place] [address] Dr. Pérez Mg GLYCOHEMOGLOBIN A1Con 2021 ADA RECOMMENDATION SEE BELOW Normal [facility] Comment on above: Result Comment: ADA RECOMMENDED LIMIT 4.0 - 6.0 ADA THERAPEUTIC TARGET < 7.0 ACTION SUGGESTED > 7.0 Performed By: #### A 1C #### [facility] [address] [address] [address] Pérez Mg Glucose [Mass/Vol] 105 mg/dL Normal [facility] Comment on above: Performed By: #### A 1C #### [facility] [address] [address] [address] Pérez Mg HbA1c (Bld) [Mass fraction] 5.3 % Normal 4.5-6.2 [facility] Comment on above: Performed By: #### A 1C #### [facility] [address] [address] [address] Pérez Mg LIPID PROFILEon 12-14-2021 CHOL-HDL RATIO NORM SEE BELOW Normal [facility] Comment on above: Result Comment: 3.3 - 4.4 LOW RISK 4.4 - 7.1 AVERAGE RISK 7.1 - 11.0 MODERATE RISK >11.0 HIGH RISK Performed By: #### L IPID, CMP #### [facility] [address] [place] [address] Dr. Pérez Mg Cholesterol [Mass/Vol] 201 mg/dL Critically high <=200 [facility] Comment on above: Performed By: #### L IPID, CMP #### [facility] [address] [place] [address] Dr. Pérez Mg Cholesterol in HDL [Mass/Vol] 41 mg/dL Normal 40-60 [facility] Comment on above: Performed By: #### L IPID, CMP #### [facility] [address] [address] [address] Pérez Mg Cholesterol in LDL [Mass/Vol] 122.8 mg/dL Normal [facility] Comment on above: Performed By: #### L IPID, CMP #### [facility] [address] [address] [address] Péerz Mg Cholesterol.total/Ch olesterol in HDL [Mass ratio] 4.9 {ratio} Normal [facility] Comment on above: Performed By: #### L IPID, CMP #### [facility] [address] [address] [address] Pérez Mg HDL NORMAL > or = 60 mg/dl - LO W CARDIOVASCULAR RISK <40 mg/dl - HIGH CARDIOVASCULAR RISK Normal [facility] Comment on above: Performed By: #### L IPID, CMP #### [facility] [address] [address] [address] Pérez Mg LDL CALC NORMAL SEE BELOW Normal [facility] Comment on above: Result Comment: <100 mg/dl OPTIMAL 100 - 129 mg/dl NEAR OR ABOVE OPTIMAL 130 - 159 mg/dl BORDERLINE HIGH 160 - 189 mg/dl HIGH >190 mg/dl VERY HIGH Performed By: #### L IPID, CMP #### [facility] [address] [place] [address] Dr. Pérez Mg Triglyceride [Mass/Vol] 186 mg/dL Critically high <=150 [facility] Comment on above: Performed By: #### L IPID, CMP #### [facility] [address] [place] [address] Dr. Pérez Mg VLDL CALC 37.2 mg/dL Normal [facility] Comment on above: Performed By: #### L IPID, CMP #### [facility] [address] [place] [address] Dr. Pérez Mg PROF 14(COMP METB)on 022 Albumin [Mass/Vol] 3.9 g/dL Normal 3.4-5.0 [facility] Comment on above: Performed By: #### L IPID, CMP #### [facility] [address] [place] [address] Dr. Pérez Mg Albumin/Globulin [Mass ratio] 1.1 {ratio} Normal [facility] Comment on above: Performed By: #### L IPID, CMP #### [facility] [address] [place] [address] Dr. Pérez Mg ALP [Catalytic activity/Vol] 65 U/L Normal 46-116 [facility] Comment on above: Performed By: #### L IPID, CMP #### [facility] [address] [place] [address] Dr. Pérez Mg ALT [Catalytic activity/Vol] 41 U/L Normal 16-63 [facility] Comment on above: Performed By: #### L IPID, CMP #### [facility] [address] [place] [address] Dr. Pérez Mg Anion gap [Moles/Vol] 10.3 mmol/L Normal [facility] Comment on above: Performed By: #### L IPID, CMP #### [facility] [address] [place] [address] Dr. Pérez Mg AST [Catalytic activity/Vol] 33 U/L Normal 15-37 [facility] Comment on above: Performed By: #### L IPID, CMP #### [facility] [address] [place] [address] Dr. Pérez Mg Bilirubin [Mass/Vol] 0.5 mg/dL Normal 0.2-1.0 [facility] Comment on above: Performed By: #### L IPID, CMP #### [facility] [address] [place] [address] Dr. Pérez Mg Calcium [Mass/Vol] 9.0 mg/dL Normal 8.5-10.1 [facility] Comment on above: Performed By: #### L IPID, CMP #### [facility] [address] [place] [address] Dr. Pérez Mg Chloride [Moles/Vol] 103 mmol/L Normal 98-107 [facility] Comment on above: Performed By: #### L IPID, CMP #### [facility] [address] [place] [address] Dr. Pérez Mg CO2 [Moles/Vol] 27.7 mmol/L Normal 21.0-32.0 [facility] Comment on above: Performed By: #### L IPID, CMP #### [facility] [address] [place] [address] Dr. Pérez Mg Creatinine [Mass/Vol] 0.73 mg/dL Normal 0.70-1.30 [facility] Comment on above: Performed By: #### L IPID, CMP #### [facility] [address] [place] [address] Dr. Pérez Mg EGFR-AF PUERTO RICAN >60 Normal >=60 [facility] Comment on above: Performed By: #### L IPID, CMP #### [facility] [address] [place] [address] Dr. Pérez Mg EGFR-NON AF PUERTO RICAN >60 Normal >=60 [facility] Comment on above: Performed By: #### L IPID, CMP #### [facility] [address] [address] [address] Pérez Mg Globulin (S) [Mass/Vol] 3.6 g/dL Normal [facility] Comment on above: Performed By: #### L IPID, CMP #### [facility] [address] [place] [address] Dr. Pérez Mg Glucose [Mass/Vol] 110 mg/dL Critically high 74-106 [facility] Comment on above: Performed By: #### L IPID, CMP #### [facility] [address] [place] [address] Dr. Pérez Mg Potassium [Moles/Vol] 4.0 mmol/L Normal 3.5-5.1 [facility] Comment on above: Performed By: #### L IPID, CMP #### [facility] [address] [place] [address] Dr. Pérez Mg Protein [Mass/Vol] 7.5 g/dL Normal 6.4-8.2 [facility] Comment on above: Performed By: #### L IPID, CMP #### [facility] [address] [place] [address] Dr. Pérez Mg Sodium [Moles/Vol] 137 mmol/L Normal 136-145 [facility] Comment on above: Performed By: #### L IPID, CMP #### [facility] [address] [place] [address] Dr. Pérez Mg Urea nitrogen [Mass/Vol] 16.0 mg/dL Normal 7.0-18.0 [facility] Comment on above: Performed By: #### L IPID, CMP #### [facility] [address] [place] [address] Dr. Pérez Mg Urea nitrogen/Creatinine [Mass ratio] 21.9 mg/mg Normal [facility] Comment on above: Performed By: #### L IPID, CMP #### [facility] [address] [address] [address] Pérez Dee 01-28-2021 CNPN Telephone (CARDMN) NITZA IBANEZ ([id number]) 1960 M Date Time Provider Department 01/28/21 JARROD LUNA CARDMN During your visit today, we recorded the following information about you: Aracelis Raoul 01/28/2021 2:35 PM Signed Outside medical records uploaded to [employer]: CT/OT - CTA chest with contrast - 11/07/2020 Allergies As of Date: 01/28/2021 (No Known Allergies) Date Reviewed: 09/26/2020 Reviewed by: Macarena Payton MD - Fully Assessed Reason for Visit: Received Outside Medical Records [[id number]] Cmt: CT/OT - CTA Chest with Contrast [...] mouth daily as [facility]. [facility] - levothyroxine (SYNTHROID) 25 [...] Encounter Status:Closed by ANA FRAZIER on 01/28/21 [facility] CNOVon 09-26-2020 CNOV Office Visit (CARIMN ) NITZA IBANEZ ([id number]) 1960 M Date Time Provider Department 09/26/20 12:30 PM NIMO ALTMAN During your visit today, we recorded the following information about you: Pulse Respiration Blood pressure Weight 63/minute 12/minute 176/72 69.4 kg Height 1.778 m Nimo Altman MD 10/24/2020 11:55 AM Addendum [facility] [place] [facility] Department of Cardiovascular Medicine SECTION OF CARDIOVASCULAR IMAGING OUTPATIENT VISIT DATE September 26, 2020 OUTPATIENT VISIT TYPE NEW PRIMARY CARE PHYSICIAN: Nehemiah Jimenez MD [address] [place] [id number] REFERRING PHYSICIAN: Jarrod Luna [address] [place] [id number] CHIEF COMPLAINT: Valvular heart disease HISTORY OF [...] mouth daily as directed. As directed by [facility] coumadin clinic. levothyroxine (SYNTHROID) 25 mcg tablet [...] Headache, Impai (more content not included)... Normal [facility] CNOVon 07-26-2020 CNOV Office Visit (CARDMN ) NITZA IBANEZ ([id number]) 1960 M Date Time Provider Department 07/26/20 12:15 PM JARROD LUNA CARDMN During your visit today, we recorded the [...] fibrillation, sudden deaths. 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 . Daughter A AND W. 2 grandchildren. Lives in [place], [place]. Habits: Tobacco: none. Alcohol: never. Caffeine: [...] Weakness, paralysis-No, Numbness-No, (more content not included)... [facility]CARDMN) NITZA IBANEZ ([id number]) 1960 M Date Time Provider Department 07/20/20 JARROD LUNA During your visit today, we recorded the following information about you: Aracelis Duvall 07/20/2020 4:14 PM Signed Outside medical records scanned into [email or web address]. Patient scheduled to see Dr. Jarrod Luna on July 26, 2020. Allergies As of Date: 07/20/2020 (Not on File) Date Reviewed: Never Reviewed Reason for Visit: Received Outside Medical Records [[id number]] Problem List As Of Date: 07/20/2020 (None) Encounter Status:Closed by ARACELIS VALLES on 07/20/20 [facility] CNCOon 07-05-2020 CNCO Letter Text [facility] 06-26-2020 CNPN Telephone (REFPHY) NITZA IBANEZ ([id number]) 1960 M Date Time Provider Department 06/26/20 NO PCP (HISTORICAL) REFPHY During your visit today, we recorded the following information about you: Aj Saez 06/26/2020 12:18 PM Signed Patient: Nitza Ibanez Date of : 1960 Patient phone number: [phone] Referring Provider for the encounter: Nehemiah Jimenez Requesting Provider: Someone that specializes in Valve Disease Reason for requesting visit (RFV/signs and symptoms/diagnosis): Bradycardia, tachycardia Person calling: self Return call to: self Medical Records/Insurance Card scanned into [employer]: Yes Comments: Valve Replacement X2 Allergies As of Date: 06/26/2020 (Not on File) Date Reviewed: Never Reviewed Reason for Visit: External Referrals/resources [909] Problem List As Of Date: 06/26/2020 (None) Encounter Status:Closed by AJ SAEZ on 06/26/20 Normal [facility] Facesheeton 10-27-2019 Facesheet [id number] 0CD:127 Normal [facility] Provider Letter FTMCon 10-25 Provider Letter FT Nehemiah Jimenez [address] [place] [address] Re: NITZA IBANEZ Date of : 1960 Thank your for your referral of Nitza Ibanez who was seen on consultation on 10/25/2019 for epigastric pain and cholelithiasis. I have enclosed my consultation notes for your review. Sincerely, Kevin Martinez MD General Surgery Normal [facility] Ambulatory Clinical Summaryo n 10-25-2019 Ambulatory Clinical Summary {[id number]}CD:[id number] Normal [facility] General Surgery Office/Clini c Noteon 10-25-2019 General Surgery Office/Clinic Note Chief Complaint referral for cholelithiasis HPI Staff 59 year old male presents on consultation from Dr. Jimenez for cholelithiasis. Complains of intermittent abdominal pain for several years. Denies nausea or vomiting. [place] foods do make symptoms worse. Denies diarrhea. RUQ US completed 09/27/19 reported severe cholelithiasis, htn, pulmonary htn, Marfan's syndrome; reports intermittent upper abdominal pain, seen in [place] ED approximately 1 month ago, had epigastric burning pain, constant, radiating to chest; US revealed cholelithiasis, no acute inflammation, normal ducts; transferred to [place] for cardiac cath, reportedly ok, was to see surgeon at [facility] regarding gallbladder, but never set up appointment; [...] risk for surgical intervention; recommend evaluation at [facility] in [place] for their recommendations; patient would likely have more bleeding issues if developed acute cholecystitis due to anticoagulation, so may benefit from a controlled, elective operation. patient will f/u with surgeon he was given in [place]; call with problems/questions.see 2. Cholelithiasis (K80.20: Calculus of gallbladder without cholecystitis without obstruction) see # 1 3. GERD (gastroesophageal reflux disease) (K21.9: Gastro-esophageal reflux disease without esophagitis) see # 1 4. Chronic anticoagulation (Z79.01: long term care social worker (current) use of anticoagulants) see # 1 [...] cancer of bone: Father and Brother. Normal [facility] Comment on above: Result Comment: Elec tronically Signed By: JOAN WOOD, Kevin Drake\Date and Time Signed: 10/25/19 16:58 EDT Physician Referralon 020 Physician Referral [id number] 0CD:127 Normal [facility] Physician Referralon 020 Physician Referral [id number] CD:127 Normal [facility] RAD - Ultrasound Reporton RAD - Ultrasound Report [id number] 0CD:127 Normal [facility] Complete Blood Count Auto Di ffon 05-28-2018 Basophils #/vol (Bld) 0.0 10*3/uL Normal 0.0-0.2 [facility] Comment on above: Order Comment: Comme nt send tubes to 210 Result Comment: PERF ORMED BY: [place] [address] PATHOLOGIST THRESHING MACHINE OPERATOR LESLYE GONZALEZ M.D. Performed By: #### C BC #### [facility] [address] [place] [address] Basophils/100 WBC (Bld) 0.7 % Normal . [facility] Comment on above: Order Comment: Comme nt send tubes to 210 Performed By: #### C BC #### [facility] [address] [place] [address] Eosinophils #/vol (Bld) 0.3 10*3/uL Normal 0.0-0.45 [facility] Comment on above: Order Comment: Comme nt send tubes to 210 Performed By: #### C BC #### [facility] [address] [place] [address] Eosinophils/100 WBC (Bld) 6.0 % Normal . [facility] Comment on above: Order Comment: Comme nt send tubes to 210 Performed By: #### C BC #### [facility] [address] [place] [address] Erythrocyte distribution width Ratio (RBC) 14.1 % Normal 12.0-14.8 [facility] Comment on above: Order Comment: Comme nt send tubes to 210 Performed By: #### C BC #### [facility] [address] [place] [address] Hematocrit Volume Fraction (Bld) 44.5 % Normal 38.8-50.0 [facility] Comment on above: Order Comment: Comme nt send tubes to 210 Performed By: #### C BC #### [address] Hemoglobin mass conc (Bld) 15.1 g/dL Normal 13.0-17.0 [facility] Comment on above: Order Comment: Comme nt send tubes to 210 Performed By: #### C BC #### [facility] [address] [place] [address] Lymphocytes #/vol (Bld) 0.7 10*3/uL Low 1.00-4.8 [facility] [facility] Comment on above: Order Comment: Comme nt send tubes to 210 Performed By: #### C BC #### [address] Lymphocytes/100 WBC (Bld) 11.9 % Normal . [facility] Comment on above: Order Comment: Comme nt send tubes to 210 Performed By: #### C BC #### [address] MCH Entitic mass (RBC) 33.9 g/dL Normal 32.5-35.6 [facility] Comment on above: Order Comment: Comme nt send tubes to 210 Performed By: #### C BC #### [address] MCH Entitic mass (RBC) 28.8 pg Normal 27.5-35.2 [facility] Comment on above: Order Comment: Comme nt send tubes to 210 Performed By: #### C BC #### [address] MCV Entitic volume (RBC) 85.0 fL Normal 83.5-101 [facility] Comment on above: Order Comment: Comme nt send tubes to 210 Performed By: #### C BC #### [facility] [address] [place] [address] Monocytes #/vol (Bld) 0.7 10*3/uL Normal 0.0-0.8 [facility] Comment on above: Order Comment: Comme nt send tubes to 210 Performed By: #### C BC #### [address] [place] [address] [place] Monocytes/100 WBC (Bld) 11.8 % Normal . [facility] Comment on above: Order Comment: Comme nt send tubes to 210 Performed By: #### C BC #### [facility] [address] Neutrophils #/vol (Bld) 3.9 10*3/uL Normal 1.8-7.7 [facility] Comment on above: Order Comment: Comme nt send tubes to 210 Performed By: #### C BC #### [facility] [address] [place] [address] Neutrophils/100 WBC (Bld) 69.6 % Normal . [facility] Comment on above: Order Comment: Comme nt send tubes to 210 Performed By: #### C BC #### [facility] [address] [place] [address] Nucleated RBC/100 WBC Ratio (Bld) 0.0 % Normal 0-0.5 [facility] Comment on above: Order Comment: Comme nt send tubes to 210 Performed By: #### C BC #### [facility] [address] [place] [address] Platelet mean volume Entitic volume (Bld) 7.4 fL Normal 6.6-10.1 [facility] Comment on above: Order Comment: Comme nt send tubes to 210 Performed By: #### C BC #### [facility] [address] [place] [address] Platelets #/vol (Bld) 237 10*3/uL Normal 150-450 [facility] Comment on above: Order Comment: Comme nt send tubes to 210 Performed By: #### C BC #### [facility] [address] [place] [address] [place] RBC #/vol (Bld) 5.24 10*6/uL Normal 3.90-5.60 [facility] Comment on above: Order Comment: Comme nt send tubes to 210 Performed By: #### C BC #### [facility] [address] [place] [address] [place] WBC #/vol (Bld) 5.6 10*3/uL Normal 4.1-10.5 [facility] Comment on above: Order Comment: Javon alejo send tubes to 210 Performed By: #### C #### [facility] [address] [place] [address] [facility] James 05-28-2018 L -- ---- Specimen: [id number] Received: 05/28/18 Status: CAIO Scott Num: [id number] Spec Type: Surgical Subm Dr: Jim Jules Jr, DO Tissues: A Colon - Polyp (SIGMOID POLYP) Procedures: HE Stain/2, Gross/Micro L4 ---- Patient Age/Sex Location Account Attending Physician ---- Nitza Iabnez/M [id number] Jim Jules Jr, ---- SPEC NUM: RECD: 05/28/18 STATUS: CAIO SCOTT NUM: [id number] MARITO: 05/28/[address] [facility] [address]: Jim Jules Jr, DO ENTERED: 05/28/[address] [facility] [address]: SPEC TYPE: Surgical DEPT: S ORDERED: [...] specimen is submitted entirely in one cassette. (VANESSA/kasey) Microscopic Two glass slides with H E stained material have been examined. The microscopic findings support the above pathologic diagnosis. [id number] A. - - SIGMOID POLYP ---- ---- Specimen: Received: 05/28/18 Status: CAIO Sonia Num: [id number] Spec Type: Surgical Subm Dr: Jim Jules Jr DO Tissues: A Colon - Polyp (SIGMOID POLYP) Procedures: HE Stain/2, Gross/Micro L4 ---- Patient: Nitza Ibanez [id number] (Continued) ---- Signed (signature on file) Leslye Gonzalez MD 05/31/18 1553 Normal [facility] Partial Thromboplastin Timeo n 05-28-2018 aPTT Coag time (Bld) 40.4 s High 23.0-35.0 [facility] Comment on above: Order Comment: Commmagen nt send tubes to 210 Result Comment: PERF ORMED BY: [place] [address] PATHOLOGIST THRESHING MACHINE OPERATOR LESLYE GONZALEZ M.D. Performed By: #### P T, PTT #### [facility] [address] [place] [address] Prothrombin Time INRon 05-28 INR Coag RelTime (PPP) 1.4 {INR} Normal [facility] Comment on above: Order Comment: Comme nt [...] Performed By: #### P T, PTT #### [facility] [address] [place] [address] [facility] Prothrombin time (PT) Coag time (PPP) 16.4 s High 9.0-12.9 [facility] Comment on above: Order Comment: Comme nt send tubes to 210 Performed By: #### P T, PTT #### [facility] [address] [place] [address] [facility] Encounters Encounter Date Encounter Type Care Provider Facility Start: 10-21-2023 End: 10-21-2023 ambulatory MACARENA GARCIA Not Available Start: 10-20-2023 ambulatory [facility] Start: 09-29-2023 End: 09-30-2023 ambulatory [facility] Start: 08-11-2023 ambulatory [facility] Start: 06-22-2023 End: 06-22-2023 ambulatory [facility] Start: 06-02-2023 End: 06-02-2023 ambulatory [facility] Start: 04-15-2023 End: 04-15-2023 ambulatory [facility] Start: 11-05-2022 Refill Jarrod Amezcua Work Phone: Cardiology Comment on above: Refill Request Start: 12-18-2021 Encounter for genera l adult medical examination without abnormal findings DR NEHEMIAH JIMENEZ [facility] Start: 12-14-2021 End: 12-15-[address] [...] Comment on above: Performed By: #### P [facility] #### [facility] [address] [place] [address] Dr. Pérez Mg Plan of Treatment Date Care Activity Detail Author Start: 10-17-2022 Influenza vaccination Influenza Vacc ine (#1) [facility] Start: 02-16-2022 Depression Assessment Depression Ass essment [facility] Start: 10-17-2021 Influenza vaccination INFLUENZA (#1) [facility] Start: 06-18-2020 COVID-19 VACCINE (2 - Booster for Rowdy series) COVID-19 VACCINE (2 - Booster for Rowdy series) [facility] Start: 2014 PROSTATE CANCER SCRE ENING DISCUSSION PROSTATE CANCER SCREENING DISCUSSION [facility] Start: 2009 SHINGRIX VACCINE (1 of 2) SHINGRIX V ACCINE (1 of 2) [facility] Start: 2004 COLOGUARD (FIT-DNA) COLOGUARD (FIT-D NA) [facility] Start: 2004 Colonoscopy COLONOSCOPY [facility] Start: 2004 COLORECTAL CANCER SCREENING COLORECTAL CANCER SCREENING [facility] Start: [address] COLONOGRAPHY [facility] Start: 2004 DIABETES SCREEN DIABETES SCREEN [facility] Start: 2004 Diabetes Screening Diabetes Screenin g [facility] Start: 2004 FECAL OCCULT BLOOD FECAL OCCULT BLOO D [facility] Start: 2004 SIGMOIDOSCOPY SIGMOIDOSCOPY [facility] Start: 1994 Lipid 1996 panel - S brandon or Plasma Lipid Screening [facility] Start: 1994 LIPID SCREEN LIPID SCREEN [facility] Start: 1978 Urine microalbumin profile [facility] Start: 1977 ANNUAL PCP TEAM [employer]OL[employer] ALAN DISEASE VISIT ANNUAL PCP TEAM CHRONIC DISEASE VISIT [facility] Start: 1977 BP CONTROLLED (<130/80) BP CONTROLLE D (<130/80) [facility] Start: 1977 HEPATITIS C SCREENING HEPATITIS C SC REENING [facility] Start: 1977 HIV SCREENING HIV SCREENING [facility] Start: 1971 Adult depression scr eening assessment DEPRESSION SCREENING [facility] Immunizations Immunization Date Immunization Notes Care Provider Fa joan 12-28-2019 influenza virus vacc ine, unspecified formulation Jarrod Luna MD Work Phone: [facility] Payers Date Payer Category Payer Unknown [id number] 2023 Unknown [id number] 2020 Unknown [employer] ACCE SS PPO [id number] 2020-Present [phone] [address] [place] [address] PPO [id number] 2013 Unknown [employer] [facility] [id number] 2013-Present HMO [id number] 1959 Unknown [id number] 1959 Unknown [id number] 1959 Unknown [id number] 1959 Self-pay 1960 Unknown [id number] Social History Date Type Detail Facility [facility] Start: 1960 Sex Assigned At Not on file [facility] Start: 07-26-2020 [facility] Never [facility] tobacco [facility] Work Phone: Start: 07-26-2020 Tobacco use and exposure Smokeless tobacco non-user [facility] Work Phone: Start: 09-26-2020 Alcohol intake Lifetime non-d jose e (finding) [facility] Start: 07-26-2020 History SDOH Alcohol Frequency 1 [facility] Start: 07-26-2020 End: 09-26-2020 History of Social function [facility] Start: 07-26-2020 End: 09-26-2020 Tobacco use panel [facility] National Score (1-10 0), lower number is lower risk Not on file [facility] Clinical Notes 06-26-2020 to 09-29-2023 Telephone Encounter - Mary Fowler - 11/05/2022 9:55 AM EDTTelephone Encounter - Aracelis Silveira - 09/25/2021 7:16 AM EDTTelephone Encounter - Aj Saez - 06/26/2020 12:16 PM EDT Note Date & Type Note Facility 09-29-2023 Note [place] Electrophysiology Consult Note Reason for visit: AF, MVRx2 (rheumatic disease hx?), hx AVR 09/29/23 Pt felt he was in Afib and he woke up and later on converted to SR. HPI: Nitza Ibanez is a 63 y.o. year old with past medical history of Peyronie's disease, aortic valve replacement x2, ?Marfan syndrome??, paresthesia, rheumatic heart disease s/p mitral valve replacement, LVH, A-fib, aortic aneurysm repair on warfarin due to history of A-fib and prosthetic valves. At one point was being seeing by [facility] EP for PPM but no PPM [...] 125, triglycerides 162, hemoglobin A1c 5.4 Per [facility] cardiology 09/2020 HISTORY OF PRESENT ILLNESS: [...] on file Intimate Partner Violence: Unknown (04/10/2023) [place] Safety & Environment Fear of Current or Ex-Partner: Not on file Emotionally Abused: Not on file Physically Abused: Not on file Sexually Abused: Not on file Physically or Sexually Abused: Not on file Depression: Not on file Housing Stability: Not on file Utilities: Not on file Allergies: No Known Allergies Weight: 68.5kg Visit Vitals BP 142/76 Pulse 72 Ht 1.778 m (5' 10 ) Wt 68.5 kg (151 lb) SpO2 96% BMI 21.67 kg/m??? Smoking Status Never BSA 1.84 m??? [...] prior to visit. ROS: Review of Systems Cardiovascular (more content not included)... [facility] 06-22-2023 Note LOOP IMPLANT PROCEDU RE NOTE [...] the sternum on the left using the [employer] tool. The loop recorder was then [...] the incision. Matt Willis MD Cardiac Electrophysiology. [facility] 06-02-2023 Note [place] Electrophysiology Consult Note Reason for visit: AF, [...] At one point was being seeing by [facility] EP for PPM but no PPM [...] 125, triglycerides 162, hemoglobin A1c 5.4 Per [facility] cardiology 09/2020 HISTORY OF PRESENT ILLNESS: [...] on file Intimate Partner Violence: Unknown (04/10/2023) [place] Safety & Environment Fear of Current or [...] for irregular he (more content not included)... [facility] 04-15-2023 Note [place] Electrophysiology Consult Note [...] At one point was being seeing by [facility] EP for PPM but no PPM [...] 125, triglycerides 162, hemoglobin A1c 5.4 Per [facility] cardiology 09/2020 HISTORY OF PRESENT ILLNESS: [...] on file Intimate Partner Violence: Unknown (04/10/2023) [place] Safety & Environment Fear of Current or [...] by mouth every (more content not included)... [facility] 11-05-2022 Miscellaneous Notes Call from patient requesting refill. Requested Prescriptions Pending Prescriptions Disp Refills losartan (COZAAR) 50 mg tablet [Pharmacy Med Name: LOSARTAN POTASSIUM 50 MG TAB] 180 tablet 3 Sig: take one tablet by mouth twice a day Patient last seen 09/26/20 Mary Fowler documented in this encounter [facility] 09-25-2021 Miscellaneous Notes Electronic request for refill. Requested Prescriptions Pending Prescriptions Disp Refills losartan (COZAAR) 50 mg tablet [Pharmacy Med Name: LOSARTAN POTASSIUM 50 MG TAB] 180 tablet 3 Sig: TAKE 1 TABLET BY MOUTH TWICE A DAY Last office visit in was 07/26/2020 Aracelis Silveira documented in this encounter [facility] 09-26-2020 Note HNO ID: [id number] Author: Nimo Altman MD Service: ? Author Type: Physician Type: Progress Notes Filed: 10/24/2020 11:55 AM Note Text: [facility] [place] [facility] Department of Cardiovascular Medicine SECTION OF CARDIOVASCULAR IMAGING OUTPATIENT VISIT DATE September 26, 2020 OUTPATIENT VISIT TYPE NEW PRIMARY CARE PHYSICIAN: Nehemiah Jimenez MD [address] [place] [address] REFERRING PHYSICIAN: Jarrod Luna [address] [facility] [address] CHIEF COMPLAINT: Valvular heart disease HISTORY OF [...] AVR 2001 - PAST SURGICAL HISTORY OF 1989 varicocele surgery - SHX MITRAL VALVE REPLACEMENT [...] mouth daily as [facility]. [facility] levothyroxine (SYNTHROID) 25 mcg tablet [...] GASTROINTESTINAL: Negative for: (more content not included)... [facility] 07-26-2020 Note HNO ID: [id number] Author: Daksha Weir Service: ? Author Type: ? Type: Progress Notes Filed: 07/26/2020 2:25 PM Note Text: EVENT MONITOR DISPOSABLE PATCH INSTRUCTIONS Patient Name: Nitza Ibanez [facility] Number: [id number] Skin prepped and cleansed with alcohol Patch secured to prepped area Monitor Activated Serial #: [id number] Patient Instructed: 1.) Prescribed order timeframe 2.) Bathing guidelines 3.) Usage of event button and diary documentation 4.) Return of monitor at the end of prescribed order 5.) Call with problems [phone] or [phone]. [phone] Patient expresses a good understanding of instructions Daksha Weir [facility] 07-26-2020 Note Education (CARDMN) NITZA IBANEZ ([id number]) 1960 M Date Time Provider Department 07/26/20 2:00 PM ARRHYTHMIA MONITORING LAB CARDMN Reason for Visit: ZIO PATCH [Other] Progress Notes: Daksha Weir 07/26/2020 2:25 PM Signed EVENT MONITOR DISPOSABLE PATCH INSTRUCTIONS Patient Name: Nitza Ibanez Clinic Number: [id number] Skin prepped and cleansed with alcohol Patch secured to prepped area Monitor Activated Serial #: [id number] Patient Instructed: 1.) Prescribed order timeframe 2.) Bathing guidelines 3.) Usage of event button and diary documentation 4.) Return of monitor at the end of prescribed order 5.) Call with problems [phone] or [phone] ext. [phone] Patient expresses a good understanding of instructions [...] Encounter Status:Closed by DAKSHA GRAVES on 07/26/20 [facility] 07-26-2020 Note HNO ID: [id number] Author: Jarrod Luna MD Service: ? Author [...] fibrillation, sudden deaths. 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 . Daughter A AND W. 2 grandchildren. Lives in [place], [place]. Habits: Tobacco: none. Alcohol: never. Caffeine: [...] sweating-No, Frequent urination (more content not included)... [facility] 07-26-2020 Note HNO ID: [id number] Author: Jarrod Luna MD Service: ? Author [...] aortic valve with sinus bradycardia 54 bpm. [facility] 06-26-2020 Miscellaneous Notes Patient: Nitza Ibanez Date of : 1960 Patient phone number: [phone] Referring Provider for the encounter: Nehemiah Jimenez Requesting Provider: Someone that specializes in Valve Disease Reason for requesting visit (RFV/signs and symptoms/diagnosis): Bradycardia, tachycardia Person calling: self Return call to: self Medical Records/Insurance Card scanned into [employer]: Yes Comments: Valve Replacement X2 documented in this encounter [facility] Summary Purpose Family History No Family History [...] section and content) DATE CREATED AUTHOR 07/08/2018 [facility] DATE CREATED AUTHOR AUTHOR'S ORGANIZ ATION 10/27/2019 [facility] DATE CREATED AUTHOR AUTHOR'S ORGANIZ ATION 03/19/2021 [facility] DATE CREATED AUTHOR AUTHOR'S ORGANIZ ATION 04/02/2022 [facility] DATE CREATED AUTHOR AUTHOR'S ORGANIZ ATION 10/22/[address] [facility] DATE CREATED AUTHOR AUTHOR'S ORGANIZ ATION 10/23/2023 [facility] Source Comments (unrecognize d section and content) In the event this informatio n is protected by the Federal Confidentiality of Alcohol and Drug Abuse Patient Records regulations: The Federal rules restrict any use of the information to criminally investigate or prosecute any alcohol or drug abuse patient.[facility] the event this information is protected by the Federal Confidentiality of Alcohol and Drug Abuse Patient Records regulations: The Federal rules restrict any use of the information to criminally investigate or prosecute any alcohol or drug abuse patient.[facility] the event this information is protected by the Federal Confidentiality of Alcohol and Drug Abuse Patient Records regulations: The Federal rules restrict any use of the information to criminally investigate or prosecute any alcohol or drug abuse patient.[facility] Reason for Visit (unrecogniz ed section and content) Reason Comments External Referrals/resources Reason Comments Refill Request Care Teams (unrecognized sec tion and content) Program Arranger Relationship Specialty Start Date End Date Nehemiah Jimenez MD [address] [place] [address] PCP - General Family Practice 06/06/13 Abner Young [address] [address] Referring Cardiology 07/26/20 Nimo Altman MD [address] [place] [address] Primary Staff Physician Cardiology 09/26/20 Program Arranger Relationship Specialty Start Date End Date Nehemiah Jimenez MD PCP - General Family Medicine 06/06/13 Abner Young [address] [address] Referring Cardiology 07/26/20 Nimo Altman MD [address] [place] [address] Primary Staff Physician Cardiology 09/26/20 FOR RECORDS [...] BE BASED ON THE PRIMARY CLINICAL RECORDS. [employer] [facility]. provides no warranty or guarantee of the accuracy or completeness of information in this document.
== END 2023-11-02 15:24 | disposition home or self-care (01) ==
LOC: WC 15:23
PROVIDERS: PCP Family Medicine; Visit Provider Physician Assistant
DX: L97.412 Non-pressure chronic ulcer of right heel and midfoot with fat layer exposed (principal)
CPT/HCPCS: G0463

== ENCOUNTER 2023-11-17 02:45 | Outpatient (RCR) | payer BC, SELFPAY | END 2023-12-17 23:47 | disposition home or self-care (01) | LOC: MM 02:45 | PROVIDERS: PCP Physician Assistant; Visit Provider Internal Medicine | DX: Z51.81 Encounter for therapeutic drug level monitoring (principal); Z79.01 Long term (current) use of anticoagulants; I48.91 Unspecified atrial fibrillation ==

== ENCOUNTER 2023-11-17 10:26 | Outpatient (OUT) | payer BC, SELFPAY ==
--- OUTSIDE RECORDS SUMMARY | 2023-11-17 10:36 | XMS_ITS | CCD ---
Author Organization [facility] Inform ion Partnership [facility] Care Team Providers Care Point Of Care Technician Name Role Phone Nehemiah Jimenez Primary Care Provider Nehemiah Jimenez Unavailable Nehemiah Jimenez MD Primary Care Provider [id number] Abner Young Unavailable Dianne WOOD, Nimo Garza Unavailable [phone] NEHEMIAH JIMENEZ Attending Unavailable ARTUR, DR CERNA Admitting Unavailable ARTUR, DR CERNA Primary Care Unavailable ARTUR, DR CERNA Consulting Unavailable ARTUR, DR CERNA Attending Unavailable ARTUR, DR CERNA Admitting Unavailable ARTUR, DR CERNA Primary Care Unavailable Nehemiah Jimenez MD Primary Care Provider [phone] Abner Young Unavailable Dianne WOOD, Nimo Garza Unavailable [phone] HONORIO EVANS Attending Unavailable MATT WILLIS [...] mouth daily as directed. As directed by [facility] coumadin clinic. 0 10/21/2018 Active Comment on above: Take 5 mg by mouth d aily as directed. As directed by [facility] coumadin clinic. Problems Active Problems Problem Classification [...] Range Facility Office Visiton 09-29-2023 Follow-up visit [id number] Indio Ibanez 1960 M Date Provider Department Center 09/29/2023 MATT STANFORD SAMUEL Reinaevmarv Riggins Family History Problem Relation Age of Onset Cancer Mother Cancer Father Diabetes Sister Cancer Brother Diabetes Brother Family Status - Relation Status Age at Mother Father Sister Brother Level of Service:02335 [place] OFFICE/OUTPATIENT ESTABLISHED LOW MDM 20 MIN Normal [facility] HPon 06-22-2023 [facility] Electrophysiology Consult Note Reason for visit: [...] At one point was being seeing by [facility] EP for PPM but no PPM [...] 125, triglycerides 162, hemoglobin A1c 5.4 Per [facility] cardiology 09/2020 HISTORY OF PRESENT ILLNESS: [...] on file Intimate Partner Violence: Unknown (04/10/2023) [place] Safety & Environment Fear of Current or [...] Constitutional Gener (more content not included)... Normal [facility] NURSNOTEon 06-22-2023 NURSNOTE RN educated pt on d/ c instructions. RN encouraged pt to voice any questions or concerns. Pt verbalizes no questions or concerns at this time. Pt was wheeled off of unit with all of belongings. [facility] Office Visiton 06-02-2023 Follow-up visit [id number] Indio Ibanez 1960 M Date Provider Department Center 06/02/2023 [place]-[facility] WILLIS SAMUEL Riggins Family History Problem Relation Age of Onset Cancer Mother Cancer Father Diabetes Sister Cancer Brother Diabetes Brother Family Status - Relation Status Age at Mother Father Sister Brother Level of Service:66475 [place] OFFICE/OUTPATIENT NEW MODERATE MDM 45 MINUTES Normal [facility] 36on 04-17-2023 36 He can restart his toprol XL 100mg once daily only Normal [facility] Office Visiton 04-15-2023 Follow-up visit [id number] Indio Ibanez 1960 M Date Provider Department Center 04/15/2023 [place]-HONORIO EVANS SAMUEL Riggins Family History Problem Relation Age of Onset Cancer Mother Cancer Father Diabetes Sister Cancer Brother Diabetes Brother Family Status - Relation Status Age at Mother Father Sister Brother Level of Service:90458 [place] OFFICE/OUTPATIENT NEW MODERATE MDM 45 MINUTES Reason for Visit and Comments: New Patient [632] - A Fib Normal [facility] CBC AUTO DIFFon 12-14-2021 BASO # 0.0 103/ul Normal 0.0-0.1 [facility] Comment on above: Performed By: #### C BC #### [facility] Laboratory [address] [address] [address] Pérez Mg Basophils/100 WBC (Bld) 0.6 % Normal 0.2-2.0 [facility] Comment on above: Performed By: #### C BC #### [facility] [address] [address] [address] Pérez Mg EO # 0.5 103/ul Normal 0.0-0.7 [facility] Comment on above: Performed By: #### C BC #### [facility] [address] [address] [address] Pérez Mg Eosinophils/100 WBC (Bld) 8.6 % Critically high 0.9-7.0 [facility] Comment on above: Performed By: #### C BC #### [facility] [address] [address] [address] Pérez Mg Erythrocyte distribution width (RBC) [Ratio] 13.2 % Normal 11.0-15.0 [facility] Comment on above: Performed By: #### C BC #### [facility] [address] [address] [address] Pérez Mg Hematocrit (Bld) [Volume fraction] 43.2 % Normal 42.0-54.0 [facility] Comment on above: Performed By: #### C BC #### [facility] [address] [address] [address] Pérez Mg Hemoglobin (Bld) [Mass/Vol] 14.6 g/dL Normal 14.0-18.0 [facility] Comment on above: Performed By: #### C BC #### [facility] [address] [address] [address] Pérez Mg IG # 0.06 10e3/ul Critically high 0.00-0.03 [facility] Comment on above: Performed By: #### C BC #### [facility] [address] [place] [address] Dr. Pérez Mg IG % 1.0 % Critically high 0.0-0.5 [facility] Comment on above: Performed By: #### C BC #### [facility] [address] [address] [address] Pérez Mg LYMPH # 1.1 103/ul Critically low 1.2-3.8 [facility] Comment on above: Performed By: #### C BC #### [facility] [address] [place] [address] Dr. Pérez Mg Lymphocytes/100 WBC (Bld) 17.5 % Critically low 20.5-60.0 [facility] Comment on above: Performed By: #### C BC #### [facility] [address] [place] [address] Dr. Pérez Mg MANUAL DIFF REQ NO Normal [facility] Comment on above: Performed By: #### C BC #### [facility] [address] [place] [address] Dr. Pérez Mg MCH (RBC) [Entitic mass] 29.0 pg Normal 25.9-34.0 [facility] Comment on above: Performed By: #### C BC #### [facility] [address] [place] [address] Dr. Pérez Mg MCHC (RBC) [Mass/Vol] 33.8 g/dL Normal 29.9-35.2 [facility] Comment on above: Performed By: #### C BC #### [facility] [address] [place] [address] Dr. Pérez Mg MCV (RBC) [Entitic vol] 85.9 fL Normal 80.0-94.0 [facility] Comment on above: Performed By: #### C BC #### [facility] [address] [place] [address] Dr. Pérez Mg MONO # 0.5 103/ul Normal 0.3-0.8 [facility] Comment on above: Performed By: #### C BC #### [facility] [address] [address] [address] Pérez Mg Monocytes/100 WBC (Bld) 8.3 % Normal 1.7-12.0 [facility] Comment on above: Performed By: #### C BC #### [facility] [address] [address] [address] Pérez Mg NEUT # 4.0 103/ul Normal 1.4-6.5 [facility] Comment on above: Performed By: #### C BC #### [facility] [address] [address] [address] Pérez Mg Neutrophils/100 WBC (Bld) 64.0 % Normal 43.0-75.0 [facility] Comment on above: Performed By: #### C BC #### [facility] [address] [place] [address] Dr. Pérez Mg Platelet mean volume (Bld) [Entitic vol] 9.1 fL Critically low 9.5-13.5 [facility] Comment on above: Performed By: #### C BC #### [facility] [address] [place] [address] Dr. Pérez Mg PLT 213 103/ul Normal 150-450 [facility] Comment on above: Performed By: #### C BC #### [facility] [address] [place] [address] Dr. Pérez Mg RBC 5.03 106/ul Normal 4.70-6.10 [facility] Comment on above: Performed By: #### C BC #### [facility] [address] [place] [address] Dr. Pérez Mg WBC 6.3 103/ul Normal 4.0-11.0 [facility] Comment on above: Performed By: #### C BC #### [facility] [address] [place] [address] Dr. Pérez Mg GLYCOHEMOGLOBIN A1Con 2021 ADA RECOMMENDATION SEE BELOW Normal [facility] Comment on above: Result Comment: ADA RECOMMENDED LIMIT 4.0 - 6.0 ADA THERAPEUTIC TARGET < 7.0 ACTION SUGGESTED > 7.0 Performed By: #### A 1C #### [facility] [address] [address] [address] Pérez Mg Glucose [Mass/Vol] 105 mg/dL Normal [facility] Comment on above: Performed By: #### A 1C #### [facility] [address] [address] [address] Pérez Mg HbA1c (Bld) [Mass fraction] 5.3 % Normal 4.5-6.2 [facility] Comment on above: Performed By: #### A 1C #### [facility] [address] [address] [address] Pérez Mg LIPID PROFILEon 12-14-2021 CHOL-HDL RATIO NORM SEE BELOW Normal [facility] Comment on above: Result Comment: 3.3 - 4.4 LOW RISK 4.4 - 7.1 AVERAGE RISK 7.1 - 11.0 MODERATE RISK >11.0 HIGH RISK Performed By: #### L IPID, CMP #### [facility] [address] [place] [address] Dr. Pérez Mg Cholesterol [Mass/Vol] 201 mg/dL Critically high <=200 [facility] Comment on above: Performed By: #### L IPID, CMP #### [facility] [address] [place] [address] Dr. Pérez Mg Cholesterol in HDL [Mass/Vol] 41 mg/dL Normal 40-60 [facility] Comment on above: Performed By: #### L IPID, CMP #### [facility] [address] [address] [address] Pérez Mg Cholesterol in LDL [Mass/Vol] 122.8 mg/dL Normal [facility] Comment on above: Performed By: #### L IPID, CMP #### [facility] [address] [address] [address] Pérez Mg Cholesterol.total/Ch olesterol in HDL [Mass ratio] 4.9 {ratio} Normal [facility] Comment on above: Performed By: #### L IPID, CMP #### [facility] [address] [address] [address] Pérez Mg HDL NORMAL > or = 60 mg/dl - LO W CARDIOVASCULAR RISK <40 mg/dl - HIGH CARDIOVASCULAR RISK Normal [facility] Comment on above: Performed By: #### L IPID, CMP #### [facility] [address] [address] [address] Pérez Mg LDL CALC NORMAL SEE BELOW Normal [facility] Comment on above: Result Comment: <100 mg/dl OPTIMAL 100 - 129 mg/dl NEAR OR ABOVE OPTIMAL 130 - 159 mg/dl BORDERLINE HIGH 160 - 189 mg/dl HIGH >190 mg/dl VERY HIGH Performed By: #### L IPID, CMP #### [facility] [address] [place] [address] Dr. Pérez Mg Triglyceride [Mass/Vol] 186 mg/dL Critically high <=150 [facility] Comment on above: Performed By: #### L IPID, CMP #### [facility] [address] [place] [address] Dr. Pérez Mg VLDL CALC 37.2 mg/dL Normal [facility] Comment on above: Performed By: #### L IPID, CMP #### [facility] [address] [place] [address] Dr. Pérez Mg PROF 14(COMP METB)on 022 Albumin [Mass/Vol] 3.9 g/dL Normal 3.4-5.0 [facility] Comment on above: Performed By: #### L IPID, CMP #### [facility] [address] [place] [address] Dr. Pérez Mg Albumin/Globulin [Mass ratio] 1.1 {ratio} Normal [facility] Comment on above: Performed By: #### L IPID, CMP #### [facility] [address] [place] [address] Dr. Pérez Mg ALP [Catalytic activity/Vol] 65 U/L Normal 46-116 [facility] Comment on above: Performed By: #### L IPID, CMP #### [facility] [address] [place] [address] Dr. Pérez Mg ALT [Catalytic activity/Vol] 41 U/L Normal 16-63 [facility] Comment on above: Performed By: #### L IPID, CMP #### [facility] [address] [place] [address] Dr. Pérez Mg Anion gap [Moles/Vol] 10.3 mmol/L Normal [facility] Comment on above: Performed By: #### L IPID, CMP #### [facility] [address] [place] [address] Dr. Pérez Mg AST [Catalytic activity/Vol] 33 U/L Normal 15-37 [facility] Comment on above: Performed By: #### L IPID, CMP #### [facility] [address] [place] [address] Dr. Pérez Mg Bilirubin [Mass/Vol] 0.5 mg/dL Normal 0.2-1.0 [facility] Comment on above: Performed By: #### L IPID, CMP #### [facility] [address] [place] [address] Dr. Pérez Mg Calcium [Mass/Vol] 9.0 mg/dL Normal 8.5-10.1 [facility] Comment on above: Performed By: #### L IPID, CMP #### [facility] [address] [place] [address] Dr. Pérez Mg Chloride [Moles/Vol] 103 mmol/L Normal 98-107 [facility] Comment on above: Performed By: #### L IPID, CMP #### [facility] [address] [place] [address] Dr. Pérez Mg CO2 [Moles/Vol] 27.7 mmol/L Normal 21.0-32.0 [facility] Comment on above: Performed By: #### L IPID, CMP #### [facility] [address] [place] [address] Dr. Pérez Mg Creatinine [Mass/Vol] 0.73 mg/dL Normal 0.70-1.30 [facility] Comment on above: Performed By: #### L IPID, CMP #### [facility] [address] [place] [address] Dr. Pérez Mg EGFR-AF CITIZEN [place] >60 Normal >=60 [facility] Comment on above: Performed By: #### L IPID, CMP #### [facility] [address] [place] [address] Dr. Pérez Mg EGFR-NON AF CITIZEN OF [place] >60 Normal >=60 [facility] Comment on above: Performed By: #### L IPID, CMP #### [facility] [address] [address] [address] Pérez Mg Globulin (S) [Mass/Vol] 3.6 g/dL Normal [facility] Comment on above: Performed By: #### L IPID, CMP #### [facility] [address] [place] [address] Dr. Pérez Mg Glucose [Mass/Vol] 110 mg/dL Critically high 74-106 [facility] Comment on above: Performed By: #### L IPID, CMP #### [facility] [address] [place] [address] Dr. éPrez Mg Potassium [Moles/Vol] 4.0 mmol/L Normal 3.5-5.1 [facility] Comment on above: Performed By: #### L IPID, CMP #### [facility] [address] [place] [address] Dr. Pérez Mg Protein [Mass/Vol] 7.5 g/dL Normal 6.4-8.2 [facility] Comment on above: Performed By: #### L IPID, CMP #### [facility] [address] [place] [address] Dr. Pérez Mg Sodium [Moles/Vol] 137 mmol/L Normal 136-145 [facility] Comment on above: Performed By: #### L IPID, CMP #### [facility] [address] [place] [address] Dr. Pérez Mg Urea nitrogen [Mass/Vol] 16.0 mg/dL Normal 7.0-18.0 [facility] Comment on above: Performed By: #### L IPID, CMP #### [facility] [address] [place] [address] Dr. Pérez Mg Urea nitrogen/Creatinine [Mass ratio] 21.9 mg/mg Normal [facility] Comment on above: Performed By: #### L IPID, CMP #### [facility] [address] [address] [address] Pérez Dee 01-28-2021 CNPN Telephone (CARDMN) NITZA IBANEZ ([id number]) 1960 M Date Time Provider Department 01/28/21 JARROD LUNA CARDMN During your visit today, we recorded the following information about you: Aracelis Raoul 01/28/2021 2:35 PM Signed Outside medical records uploaded to [employer]: CT/OT - CTA chest with contrast - 11/07/2020 Allergies As of Date: 01/28/2021 (No Known Allergies) Date Reviewed: 09/26/2020 Reviewed by: Macarena Payton MD - Fully Assessed Reason for Visit: Received Outside Medical Records [[id number]] Cmt: CT/OT - CTA Chest with Contrast [...] mouth daily as directed. [facility] - levothyroxine (SYNTHROID) 25 [...] Encounter Status:Closed by ANA FRAZIER on 01/28/21 [facility] CNOVon 09-26-2020 CNOV Office Visit (CARIMN ) NITZA IBANEZ ([id number]) 1960 M Date Time Provider Department 09/26/20 12:30 PM NIMO ALTMAN During your visit today, we recorded the following information about you: Pulse Respiration Blood pressure Weight 63/minute 12/minute 176/72 69.4 kg Height 1.778 m Nimo Altman MD 10/24/2020 11:55 AM Addendum [facility] Department of Cardiovascular Medicine SECTION OF CARDIOVASCULAR IMAGING OUTPATIENT VISIT DATE September 26, 2020 OUTPATIENT VISIT TYPE NEW PRIMARY CARE PHYSICIAN: Nehemiah Jimenez MD [address] [place] [id number] REFERRING PHYSICIAN: Jarrod Luna [address] [place] [id number] CHIEF COMPLAINT: Valvular heart disease HISTORY OF [...] mouth daily as directed. As directed by [facility] coumadin clinic. levothyroxine (SYNTHROID) 25 mcg [...] Headache, Impai (more content not included)... Normal [facility] CNOVon 07-26-2020 CNOV Office Visit (CARDMN ) NITZA IBANEZ ([id number]) 1960 M Date Time Provider Department 07/26/20 [...] fibrillation, sudden deaths. 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 . Daughter A AND W. 2 grandchildren. Lives in [place], [place]. Habits: Tobacco: none. Alcohol: never. Caffeine: [...] Weakness, paralysis-No, Numbness-No, (more content not included)... [facility] CNPN Telephone (CARDMN) NITZA IBANEZ ([id number]) 1960 M Date Time Provider Department 07/20/20 JARROD LUNA During your visit today, we recorded the following information about you: Aracelis Duvall 07/20/2020 4:14 PM Signed Outside medical records scanned into [facility]. Patient scheduled to see Dr. Jarrod Luna on July 26, 2020. Allergies As of Date: 07/20/2020 (Not on File) Date Reviewed: Never Reviewed Reason for Visit: Received Outside Medical Records [[id number]] Problem List As Of Date: 07/20/2020 (None) Encounter Status:Closed by ARACELIS VALLES on 07/20/20 [facility] CNCOon 07-05-2020 CNCO Letter Text [facility] 06-26-2020 CNPN Telephone (REFPHY) NITZA IBANEZ ([id number]) 1960 M Date Time Provider Department 06/26/20 NO PCP (HISTORICAL) REFPHY During your visit today, we recorded the following information about you: Aj Saez 06/26/2020 12:18 PM Signed Patient: Nitza Ibanez Date of : 1960 Patient phone number: [phone] Referring Provider for the encounter: Nehemiah Jimenez Requesting Provider: Someone that specializes in Valve Disease Reason for requesting visit (RFV/signs and symptoms/diagnosis): Bradycardia, tachycardia Person calling: self Return call to: self Medical Records/Insurance Card scanned into [employer]: Yes Comments: Valve Replacement X2 Allergies As of Date: 06/26/2020 (Not on File) Date Reviewed: Never Reviewed Reason for Visit: External Referrals/resources [909] Problem List As Of Date: 06/26/2020 (None) Encounter Status:Closed by AJ SAEZ on 06/26/20 Normal [facility] Facesheeton 10-27-2019 Facesheet [id number] 0CD:127 Normal [facility] Provider Letter FTMCon 10-25 Provider Letter FT Nehemiah Jimenez [address] [place] [address] Re: NITZA IBANEZ Date of : 1960 Thank your for your referral of Nitza Ibanez who was seen on consultation on 10/25/2019 for epigastric pain and cholelithiasis. I have enclosed my consultation notes for your review. Sincerely, Kevin Martinez MD General Surgery Normal [facility] Ambulatory Clinical Summaryo n 10-25-2019 Ambulatory Clinical Summary {[id number]}CD:[id number] Normal [facility] General Surgery Office/Clini c Noteon 10-25-2019 General Surgery Office/Clinic Note Chief Complaint referral for cholelithiasis HPI Staff 59 year old male presents on consultation from Dr. Jimenez for cholelithiasis. Complains of intermittent abdominal pain for several years. Denies nausea or vomiting. [place] foods do make symptoms worse. Denies diarrhea. RUQ US completed 09/27/19 reported severe cholelithiasis, htn, pulmonary htn, Marfan's syndrome; reports intermittent upper abdominal pain, seen in [place] ED approximately 1 month ago, had epigastric burning pain, constant, radiating to chest; US revealed cholelithiasis, no acute inflammation, normal ducts; transferred to [place] for cardiac cath, reportedly ok, was to see surgeon at [facility] regarding gallbladder, but never set up [...] risk for surgical intervention; recommend evaluation at [facility] in [place] for their recommendations; patient would likely have more bleeding issues if developed acute cholecystitis due to anticoagulation, so may benefit from a controlled, elective operation. patient will f/u with surgeon he was given in [place]; call with problems/questions.see 2. Cholelithiasis (K80.20: Calculus of gallbladder without cholecystitis without obstruction) see # 1 3. GERD (gastroesophageal reflux disease) (K21.9: Gastro-esophageal reflux disease without esophagitis) see # 1 4. 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 Normal [facility] Comment on above: Result Comment: Elec tronically Signed By: JOAN WOOD, Kevin Drake\Date and Time Signed: 10/25/19 16:58 EDT Physician Referralon 020 Physician Referral [id number] 0CD:127 Normal [facility] Physician Referralon 020 Physician Referral [id number] CD:127 Normal [facility] RAD - Ultrasound Reporton RAD - Ultrasound Report [id number] 0CD:127 Normal [facility] Complete Blood Count Auto Di ffon 05-28-2018 Basophils #/vol (Bld) 0.0 10*3/uL Normal 0.0-0.2 [facility] Comment on above: Order Comment: Comme nt send tubes to 210 Result Comment: PERF ORMED BY: [place] [address] PATHOLOGIST STEP DOWN NURSE LESLYE GONZALEZ M.D. Performed By: #### C BC #### [facility] [address] [place] [address] Basophils/100 WBC (Bld) 0.7 % Normal . [facility] Comment on above: Order Comment: Comme nt send tubes to 210 Performed By: #### C BC #### [facility] [address] [place] [address] Eosinophils #/vol (Bld) 0.3 10*3/uL Normal 0.0-0.45 [facility] [facility] Comment on above: Order Comment: Comme nt send tubes to 210 Performed By: #### C BC #### [facility] [address] [place] [address] Eosinophils/100 WBC (Bld) 6.0 % Normal . [facility] Comment on above: Order Comment: Comme nt send tubes to 210 Performed By: #### C BC #### [facility] [address] [place] [address] Erythrocyte distribution width Ratio (RBC) 14.1 % Normal 12.0-14.8 [facility] Comment on above: Order Comment: Comme nt send tubes to 210 Performed By: #### C BC #### [facility] [address] [place] [address] Hematocrit Volume Fraction (Bld) 44.5 % Normal 38.8-50.0 [facility] Comment on above: Order Comment: Comme nt send tubes to 210 Performed By: #### C BC #### [address] Hemoglobin mass conc (Bld) 15.1 g/dL Normal 13.0-17.0 [facility] Comment on above: Order Comment: Comme nt send tubes to 210 Performed By: #### C BC #### [facility] [address] [place] [address] Lymphocytes #/vol (Bld) 0.7 10*3/uL Low 1.00-4.8 [facility] Comment on above: Order Comment: Comme nt send tubes to 210 Performed By: #### C BC #### [address] Lymphocytes/100 WBC (Bld) 11.9 % Normal . [facility] Comment on above: Order Comment: Comme nt send tubes to 210 Performed By: #### C BC #### [address] MCH Entitic mass (RBC) 33.9 g/dL Normal 32.5-35.6 [facility] Comment on above: Order Comment: Comme nt send tubes to 210 Performed By: #### C BC #### [address] [facility] Entitic mass (RBC) 28.8 pg Normal 27.5-35.2 [facility] Comment on above: Order Comment: Comme nt send tubes to 210 Performed By: #### C BC #### [address] MCV Entitic volume (RBC) 85.0 fL Normal 83.5-101 [facility] Comment on above: Order Comment: Comme nt send tubes to 210 Performed By: #### C BC #### [facility] [address] [place] [address] Monocytes #/vol (Bld) 0.7 10*3/uL Normal 0.0-0.8 [facility] Comment on above: Order Comment: Comme nt send tubes to 210 Performed By: #### C BC #### [address] [place] [address] [place] Monocytes/100 WBC (Bld) 11.8 % Normal . [facility] Comment on above: Order Comment: Comme nt send tubes to 210 Performed By: #### C BC #### [facility] [address] Neutrophils #/vol (Bld) 3.9 10*3/uL Normal 1.8-7.7 [facility] Comment on above: Order Comment: Comme nt send tubes to 210 Performed By: #### C BC #### [facility] [address] [place] [address] Neutrophils/100 WBC (Bld) 69.6 % Normal . [facility] Comment on above: Order Comment: Comme nt send tubes to 210 Performed By: #### C BC #### [facility] [address] [place] [address] Nucleated RBC/100 WBC Ratio (Bld) 0.0 % Normal 0-0.5 [facility] Comment on above: Order Comment: Comme nt send tubes to 210 Performed By: #### C BC #### [facility] [address] [place] [address] Platelet mean volume Entitic volume (Bld) 7.4 fL Normal 6.6-10.1 [facility] Comment on above: Order Comment: Comme nt send tubes to 210 Performed By: #### C BC #### [facility] [address] [place] [address] Platelets #/vol (Bld) 237 10*3/uL Normal 150-450 [facility] Comment on above: Order Comment: Comme nt send tubes to 210 Performed By: #### C BC #### [facility] [address] [place] [address] [place] RBC #/vol (Bld) 5.24 10*6/uL Normal 3.90-5.60 [facility] Comment on above: Order Comment: Comme nt send tubes to 210 Performed By: #### C BC #### [facility] [address] [place] [address] [place] WBC #/vol (Bld) 5.6 10*3/uL Normal 4.1-10.5 [facility] Comment on above: Order Comment: Javon alejo send tubes to 210 Performed By: #### C #### [facility] [address] [place] [address] [facility] James 05-28-2018 L -- ---- Specimen: [id number] Received: 05/28/18 Status: CAIO Scott Num: [id number] Spec Type: Surgical Subm Dr: Jim Jules Jr, DO Tissues: A Colon - Polyp (SIGMOID POLYP) Procedures: HE Stain/2, Gross/Micro L4 ---- Patient Age/Sex Location Account Attending Physician ---- Nitza Ibanez/M [id number] Jim Jules Jr, ---- SPEC NUM: RECD: 05/28/18 STATUS: CAIO SCOTT NUM: [id number] MARITO: 05/28/18 [facility] DR: Jim Jules Jr, DO ENTERED: 05/28/18 [facility] DR: SPEC TYPE: Surgical DEPT: S [...] microscopic findings support the above pathologic diagnosis. [address] A. - - SIGMOID POLYP ---- ---- Specimen: Received: 05/28/18 Status: CAIO Sonia Num: [id number] Spec Type: Surgical Subm Dr: Jim Jules Jr DO Tissues: A Colon - Polyp (SIGMOID POLYP) Procedures: HE Stain/2, Gross/Micro L4 ---- Patient: Nitza Ibanez [id number] (Continued) ---- Signed (signature on file) Leslye Gonzalez MD 05/31/18 1553 Normal [facility] Partial Thromboplastin Timeo n 05-28-2018 aPTT Coag time (Bld) 40.4 s High 23.0-35.0 [facility] Comment on above: Order Comment: Commmagen nt send tubes to 210 Result Comment: PERF ORMED BY: [place] [address] PATHOLOGIST STEP DOWN NURSE LESLYE GONZALEZ M.D. Performed By: #### P T, PTT #### [facility] [address] [place] [address] Prothrombin Time INRon 05-28 INR Coag RelTime (PPP) 1.4 {INR} Normal [facility] Comment on above: Order Comment: Comme [...] Performed By: #### P T, PTT #### [facility] [address] [place] [address] [facility] Prothrombin time (PT) Coag time (PPP) 16.4 s High 9.0-12.9 [facility] Comment on above: Order Comment: Comme nt send tubes to 210 Performed By: #### P T, PTT #### [facility] [address] [place] [address] [facility] Encounters Encounter Date Encounter Type Care Provider Facility Start: 10-21-2023 End: 10-21-2023 ambulatory MACARENA GARCIA Not Available Start: 10-20-2023 ambulatory [facility] Start: 09-29-2023 End: 09-30-2023 ambulatory [facility] Start: 08-11-2023 ambulatory [facility] Start: 06-22-2023 End: 06-22-2023 ambulatory [facility] Start: 06-02-2023 End: 06-02-2023 ambulatory [facility] Start: 04-15-2023 End: 04-15-2023 ambulatory [facility] Start: 11-05-2022 Refill Jarrod Amezcua Work Phone: Cardiology Comment on above: Refill Request Start: 12-18-2021 Encounter for genera l adult medical examination without abnormal findings DR NEHEMIAH JIMENEZ [facility] Start: 12-14-2021 End: 12-15-2021 ambulatory [...] Comment on above: Performed By: #### P [facility] #### [facility] [address] [place] [address] Dr. Pérez Mg Plan of Treatment Date Care Activity Detail Author Start: 10-17-2022 Influenza vaccination Influenza Vacc ine (#1) [facility] Start: 02-16-2022 Depression Assessment Depression Ass essment [facility] Start: 10-17-2021 Influenza vaccination INFLUENZA (#1) [facility] Start: 06-18-2020 COVID-19 VACCINE (2 - Booster for Rowdy series) COVID-19 VACCINE (2 - Booster for Rowdy series) [facility] Start: 2014 PROSTATE CANCER SCRE ENING DISCUSSION PROSTATE CANCER SCREENING DISCUSSION [facility] Start: 2009 SHINGRIX VACCINE (1 of 2) SHINGRIX V ACCINE (1 of 2) [facility] Start: 2004 COLOGUARD (FIT-DNA) COLOGUARD (FIT-D NA) [facility] Start: 2004 Colonoscopy COLONOSCOPY [facility] Start: 2004 COLORECTAL CANCER SCREENING COLORECTAL CANCER SCREENING [facility] Start: [address] COLONOGRAPHY [facility] Start: 2004 DIABETES SCREEN DIABETES SCREEN [facility] Start: 2004 Diabetes Screening Diabetes Screenin g [facility] Start: 2004 FECAL OCCULT BLOOD FECAL OCCULT BLOO D [facility] Start: 2004 SIGMOIDOSCOPY SIGMOIDOSCOPY [facility] Start: 1994 Lipid 1996 panel - S brandon or Plasma Lipid Screening [facility] Start: 1994 LIPID SCREEN LIPID SCREEN [facility] Start: 1978 Urine microalbumin profile [facility] Start: 1977 ANNUAL PCP TEAM SYSTEM DISPATCHER ALAN DISEASE VISIT ANNUAL PCP TEAM CHRONIC DISEASE VISIT [facility] Start: 1977 BP CONTROLLED (<130/80) BP CONTROLLE D (<130/80) [facility] Start: 1977 HEPATITIS C SCREENING HEPATITIS C SC REENING [facility] Start: 1977 HIV SCREENING HIV SCREENING [facility] Start: 1971 Adult depression scr eening assessment DEPRESSION SCREENING [facility] Immunizations Immunization Date Immunization Notes Care Provider Fa joan 12-28-2019 influenza virus vacc ine, unspecified formulation Jarrod Luna MD Work Phone: [facility] Payers Date Payer Category Payer Unknown [id number] 2023 Unknown [id number] 2020 Unknown [employer] ACCE SS PPO [id number] 2020-Present [phone] [address] [place] [address] PPO [id number] 2013 Unknown [employer] [facility] [id number] 2013-Present HMO [id number] 1959 Unknown [id number] 1959 Unknown [id number] 1959 Unknown [id number] 1959 Self-pay 1960 Unknown [id number] Social History Date Type Detail Facility [facility] Start: 1960 Sex Assigned At Not on file [facility] Start: 07-26-2020 [facility] tobacco [facility] Work Phone: Start: 07-26-2020 Tobacco use and exposure Smokeless tobacco non-user [facility] Work Phone: Start: 09-26-2020 Alcohol intake Lifetime non-d jose e (finding) [facility] Start: 07-26-2020 History SDOH Alcohol Frequency 1 [facility] Start: 07-26-2020 End: 09-26-2020 History of Social function [facility] Start: 07-26-2020 End: 09-26-2020 Tobacco use panel [facility] National Score (1-10 0), lower number is lower risk Not on file [facility] Clinical Notes 06-26-2020 to 09-29-2023 Telephone Encounter - Mary Fowler - 11/05/2022 9:55 AM EDTTelephone Encounter - Aracelis Silveira - 09/25/2021 7:16 AM EDTTelephone Encounter - Aj Saez - 06/26/2020 12:16 PM EDT Note Date & Type Note Facility 09-29-2023 Note [place] Electrophysiology Consult Note Reason for visit: AF, [...] At one point was being seeing by [facility] EP for PPM but no PPM [...] 125, triglycerides 162, hemoglobin A1c 5.4 Per [facility] cardiology 09/2020 HISTORY OF PRESENT ILLNESS: [...] on file Intimate Partner Violence: Unknown (04/10/2023) [place] Safety & Environment Fear of Current or [...] of Systems Cardiovascular (more content not included)... [facility] 06-22-2023 Note LOOP IMPLANT PROCEDU RE NOTE [...] the sternum on the left using the [employer] tool. The loop recorder was then [...] the incision. Matt Willis MD Cardiac Electrophysiology. [facility] 06-02-2023 Note [place] Electrophysiology Consult Note Reason for visit: AF, [...] At one point was being seeing by [facility] EP for PPM but no PPM [...] 125, triglycerides 162, hemoglobin A1c 5.4 Per [facility] cardiology 09/2020 HISTORY OF PRESENT ILLNESS: [...] on file Intimate Partner Violence: Unknown (04/10/2023) [place] Safety & Environment Fear of Current or [...] for irregular he (more content not included)... [facility] 04-15-2023 Note [place] Electrophysiology Consult Note Reason [...] At one point was being seeing by [facility] EP for PPM but no PPM [...] 125, triglycerides 162, hemoglobin A1c 5.4 Per [facility] cardiology 09/2020 HISTORY OF PRESENT ILLNESS: [...] on file Intimate Partner Violence: Unknown (04/10/2023) [place] Safety & Environment Fear of Current or [...] by mouth every (more content not included)... [facility] 11-05-2022 Miscellaneous Notes Call from patient requesting refill. Requested Prescriptions Pending Prescriptions Disp Refills losartan (COZAAR) 50 mg tablet [Pharmacy Med Name: LOSARTAN POTASSIUM 50 MG TAB] 180 tablet 3 Sig: take one tablet by mouth twice a day Patient last seen 09/26/20 Mary Fowler documented in this encounter [facility] 09-25-2021 Miscellaneous Notes Electronic request for refill. Requested Prescriptions Pending Prescriptions Disp Refills losartan (COZAAR) 50 mg tablet [Pharmacy Med Name: LOSARTAN POTASSIUM 50 MG TAB] 180 tablet 3 Sig: TAKE 1 TABLET BY MOUTH TWICE A DAY Last office visit in was 07/26/2020 Aracelis Silveira documented in this encounter [facility] 09-26-2020 Note HNO ID: [id number] Author: Nimo Altman MD Service: ? Author Type: Physician Type: Progress Notes Filed: 10/24/2020 11:55 AM Note Text: [facility] Department of Cardiovascular Medicine SECTION OF CARDIOVASCULAR IMAGING OUTPATIENT VISIT DATE September 26, 2020 OUTPATIENT VISIT TYPE NEW PRIMARY CARE PHYSICIAN: Nehemiah Jimenez MD [address] [place] [address] REFERRING PHYSICIAN: Jarrod Luna [address] [facility] [address] CHIEF COMPLAINT: Valvular heart disease HISTORY OF [...] mouth daily as [facility]. [facility] levothyroxine (SYNTHROID) 25 mcg [...] GASTROINTESTINAL: Negative for: (more content not included)... [facility] 07-26-2020 Note HNO ID: [id number] Author: Daksha Weir Service: ? Author Type: ? Type: Progress Notes Filed: 07/26/2020 2:25 PM Note Text: EVENT MONITOR DISPOSABLE PATCH INSTRUCTIONS Patient Name: Ntiza Ibanez [facility] Number: [id number] Skin prepped and cleansed with alcohol Patch secured to prepped area Monitor Activated Serial #: [id number] Patient Instructed: 1.) Prescribed order timeframe 2.) Bathing guidelines 3.) Usage of event button and diary documentation 4.) Return of monitor at the end of prescribed order 5.) Call with problems [phone] or [phone]. [phone] Patient expresses a good understanding of instructions Daksha Weir [facility] 07-26-2020 Note Education (CARDMN) NITZA IBANEZ ([id number]) 1960 M Date Time Provider Department 07/26/20 2:00 PM [facility] CARDMN Reason for Visit: ZIO PATCH [Other] Progress Notes: Daksha Weir 07/26/2020 2:25 PM Signed EVENT MONITOR DISPOSABLE PATCH INSTRUCTIONS Patient Name: Nitza Ibanez Clinic Number: [id number] Skin prepped and cleansed with alcohol Patch secured to prepped area Monitor Activated Serial #: [id number] Patient Instructed: 1.) Prescribed order timeframe 2.) Bathing guidelines 3.) Usage of event button and diary documentation 4.) Return of monitor at the end of prescribed order 5.) Call with problems [phone] or [phone] ext. [phone] Patient expresses a good understanding of instructions [...] Encounter Status:Closed by DAKSHA GRAVES on 07/26/20 [facility] 07-26-2020 Note HNO ID: [id number] Author: Jarrod Luna MD Service: ? Author [...] deaths. 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 . Daughter A AND W. 2 grandchildren. Lives in [place], [place]. Habits: Tobacco: none. Alcohol: never. Caffeine: [...] sweating-No, Frequent urination (more content not included)... [facility] 07-26-2020 Note HNO ID: [id number] Author: Jarrod Luna MD Service: ? Author [...] aortic valve with sinus bradycardia 54 bpm. [facility] 06-26-2020 Miscellaneous Notes Patient: Nitza Ibanez Date of : 1960 Patient phone number: [phone] Referring Provider for the encounter: Nehemiah Jimenez Requesting Provider: Someone that specializes in Valve Disease Reason for requesting visit (RFV/signs and symptoms/diagnosis): Bradycardia, tachycardia Person calling: self Return call to: self Medical Records/Insurance Card scanned into [employer]: Yes Comments: Valve Replacement X2 documented in this encounter [facility] Summary Purpose Family History No Family History [...] section and content) DATE CREATED AUTHOR 07/08/2018 [facility] DATE CREATED AUTHOR AUTHOR'S ORGANIZ ATION 10/27/2019 [facility] DATE CREATED AUTHOR AUTHOR'S ORGANIZ ATION 03/19/2021 [facility] DATE CREATED AUTHOR AUTHOR'S ORGANIZ ATION [facility] DATE CREATED AUTHOR AUTHOR'S ORGANIZ ATION 10/22/2023 [facility] DATE CREATED AUTHOR AUTHOR'S ORGANIZ ATION 10/23/2023 [facility] Source Comments (unrecognize d section and content) In the event this informatio n is protected by the Federal Confidentiality of Alcohol and Drug Abuse Patient Records regulations: The Federal rules restrict any use of the information to criminally investigate or prosecute any alcohol or drug abuse patient[facility] event this information is protected by the Federal Confidentiality of Alcohol and Drug Abuse Patient Records regulations: The Federal rules restrict any use of the information to criminally investigate or prosecute any alcohol or drug abuse patient.[facility] event this information is protected by the Federal Confidentiality of Alcohol and Drug Abuse Patient Records regulations: The Federal rules restrict any use of the information to criminally investigate or prosecute any alcohol or drug abuse patient.[facility] Reason for Visit (unrecogniz ed section and content) Reason Comments External Referrals/resources Reason Comments Refill Request Care Teams (unrecognized sec tion and content) Point Of Care Technician Relationship Specialty Start Date End Date Nehemiah Jimenez MD [address] [place] [address] PCP - General Family Practice 06/06/13 Abner Young [address] [address] Referring Cardiology 07/26/20 Nimo Altman MD [address] [place] [address] Primary Staff Physician Cardiology 09/26/20 Point Of Care Technician Relationship Specialty Start Date End Date Nehemiah Jimenez MD PCP - General Family Medicine 06/06/13 Abner Young [address] [address] Referring Cardiology 07/26/20 Nimo Altman MD [address] [place] [address] Primary Staff Physician Cardiology 09/26/20 FOR RECORDS [...] BE BASED ON THE PRIMARY CLINICAL RECORDS. [facility]. provides no warranty or guarantee of the accuracy or completeness of information in this document.
== END 2023-11-17 10:27 | disposition home or self-care (01) ==
LOC: WC 10:26
PROVIDERS: PCP Physician Assistant; Visit Provider Podiatrist Foot & Ankle Surgery
DX: L97.412 Non-pressure chronic ulcer of right heel and midfoot with fat layer exposed (principal)
CPT/HCPCS: G0463

== ENCOUNTER 2023-11-18 14:50 | Outpatient (OUT) | payer BC, SELFPAY ==
--- NOTE | 2023-11-18 15:01 | VEIN_ITS ---
The [address] [address] Patient Name: NITZA MIRANDA MRN: [id number] date: 1960 Sex: M Assigned Patient Location: Current Patient Location: Accession/Order Number: [id number] Exam Date: 11/18/2023 15:02 Report Date: 11/18/2023 16:05 At the request of: SAMINA SORIA Procedure: VC SEGMENTAL PRESSURES EXAM: VC SEGMENTAL PRESSURES HISTORY: R09.89 COMPARISON: None. FINDINGS: Segmental pressures presented as follows (right, left) in mmHg. 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 Mild peripheral arterial disease third, fourth and fifth toes Left leg: Thigh: Normal Above knee: Normal Below knee: Normal Right ankle: Normal Metatarsals: Normal first. Moderate to severe peripheral arterial disease second and third toe. Moderate peripheral arterial disease fourth and fifth toe VEIN/VC SEGMENTAL PRESSURES IMPRESSION: Ischemic waveform is identified in the metatarsals bilaterally, left greater than right Normal PVR waveforms proximal to the metatarsals Electronically authenticated by: FRANCY DUNCAN Date: 11/18/2023 16:05
--- OUTSIDE RECORDS SUMMARY | 2023-11-18 15:13 | XMS_ITS | CCD ---
Author Organization [facility] Inform ion Partnership [facility] Care Team Providers Care Comparison Shopper Name Role Phone Nehemiah Jimenez Primary Care [...] Unavailable Nehemiah Jimenez MD Primary Care Provider [phone] Abner Young Unavailable Dianne WOOD, Nimo Garza Unavailable [phone] HONORIO EVANS Attending Unavailable MATT WILLIS [...] mouth daily as directed. As directed by [facility] coumadin clinic. 0 10/21/2018 Active Comment on above: Take 5 mg by mouth d aily as directed. As directed by [facility] coumadin clinic. Problems Active [...] [facility] Office Visiton 09-29-2023 Follow-up visit [id number] Indio Ibanez 1960 M Date Provider Department Center 09/29/2023 MATT STANFORD SAMUEL Reinaevmarv Riggins Family History Problem Relation Age of Onset Cancer Mother Cancer Father Diabetes Sister Cancer Brother Diabetes Brother Family Status - Relation Status Age at Mother Father Sister Brother Level of Service:86009 [place] OFFICE/OUTPATIENT ESTABLISHED LOW MDM [address] [facility] HPon 06-22-2023 [facility] Electrophysiology Consult Note Reason for visit: AF, [...] At one point was being seeing by [facility] EP for PPM but no PPM [...] 125, triglycerides 162, hemoglobin A1c 5.[address] [facility] cardiology 09/2020 HISTORY OF PRESENT ILLNESS: [...] on file Intimate Partner Violence: Unknown (04/10/2023) [place] Safety & Environment Fear of Current or [...] Constitutional Gener (more content not included)... Normal [facility] NURSNOTEon 06-22-2023 NURSNOTE RN educated pt on d/ c instructions. RN encouraged pt to voice any questions or concerns. Pt verbalizes no questions or concerns at this time. Pt was wheeled off of unit with all of belongings. [facility] Office Visiton 06-02-2023 Follow-up visit [id number] Indio Ibanez 1960 M Date Provider Department Center 06/02/2023 [place]-MATT WILLIS SAMUEL Riggins Family History Problem Relation Age of Onset Cancer Mother Cancer Father Diabetes Sister Cancer Brother Diabetes Brother Family Status - Relation Status Age at Mother Father Sister Brother Level of Service:20264 [place] OFFICE/OUTPATIENT NEW MODERATE MDM [address] [facility] 36on 04-17-2023 36 He can restart his toprol XL 100mg once daily only Normal [facility] Office Visiton 04-15-2023 Follow-up visit [id number] Indio Ibanez 1960 M Date Provider Department Center 04/15/2023 [place]-HONORIO EVANS SAMUEL Riggins Family History Problem Relation Age of Onset Cancer Mother Cancer Father Diabetes Sister Cancer Brother Diabetes Brother Family Status - Relation Status Age at Mother Father Sister Brother Level of Service:35668 [place] OFFICE/OUTPATIENT NEW MODERATE MDM 45 MINUTES Reason for Visit and Comments: New Patient [632] - A Fib Normal [facility] CBC AUTO DIFFon 12-14-2021 BASO # 0.0 103/ul Normal 0.0-0.1 [facility] Comment on above: Performed By: #### C BC #### [facility] [address] [address] [address] Pérez Mg Basophils/100 WBC (Bld) 0.6 % Normal 0.2-2.0 [facility] Comment on above: Performed By: #### C BC #### [facility] [address] [address] [address] Pérez Mg EO # 0.5 103/ul Normal 0.0-0.7 [facility] Comment on above: Performed By: #### C BC #### [facility] [address] [address] [address] Pérez Mg Eosinophils/100 WBC (Bld) 8.6 % Critically high 0.9-7.0 [facility] Comment on above: Performed By: #### C BC #### [facility] [address] [address] [address] Pérez Mg Erythrocyte distribution width (RBC) [Ratio] 13.2 % Normal 11.0-15.0 [facility] Comment on above: Performed By: #### C BC #### [facility] [address] [address] [address] Pérez Mg Hematocrit (Bld) [Volume fraction] 43.2 % Normal 42.0-54.0 [facility] Comment on above: Performed By: #### C BC #### [facility] [address] [address] [address] Pérez Mg Hemoglobin (Bld) [Mass/Vol] 14.6 g/dL Normal 14.0-18.0 [facility] Comment on above: Performed By: #### C BC #### [facility] [address] [address] [address] Pérez Mg IG # 0.06 10e3/ul Critically high 0.00-0.03 [facility] Comment on above: Performed By: #### C BC #### [facility] [address] [place] [address] Dr. Pérez Mg IG % 1.0 % Critically high 0.0-0.5 [facility] Comment on above: Performed By: #### C BC #### [facility] [address] [address] [address] Pérez Mg LYMPH # 1.1 103/ul Critically low 1.2-3.8 [facility] Comment on above: Performed By: #### C BC #### [facility] [address] [place] [address] Dr. Pérez Mg Lymphocytes/100 WBC (Bld) 17.5 % Critically low 20.5-60.0 [facility] Comment on above: Performed By: #### C BC #### [facility] [address] [place] [address] Dr. Pérez Mg MANUAL DIFF REQ NO Normal [facility] Comment on above: Performed By: #### C BC #### [facility] [address] [place] [address] Dr. Pérez Mg MCH (RBC) [Entitic mass] 29.0 pg Normal 25.9-34.0 [facility] Comment on above: Performed By: #### C BC #### [facility] [address] [place] [address] Dr. Pérez Mg MCHC (RBC) [Mass/Vol] 33.8 g/dL Normal 29.9-35.2 [facility] Comment on above: Performed By: #### C BC #### [facility] [address] [place] [address] Dr. Pérez Mg MCV (RBC) [Entitic vol] 85.9 fL Normal 80.0-94.0 [facility] Comment on above: Performed By: #### C BC #### [facility] [address] [place] [address] Dr. Pérez Mg MONO # 0.5 103/ul Normal 0.3-0.8 [facility] Comment on above: Performed By: #### C BC #### [facility] [address] [address] [address] Pérez Mg Monocytes/100 WBC (Bld) 8.3 % Normal 1.7-12.0 [facility] Comment on above: Performed By: #### C BC #### [facility] [address] [address] [address] Pérez Mg NEUT # 4.0 103/ul Normal 1.4-6.5 [facility] Comment on above: Performed By: #### C BC #### [facility] [address] [address] [address] Pérez Mg Neutrophils/100 WBC (Bld) 64.0 % Normal 43.0-75.0 [facility] Comment on above: Performed By: #### C BC #### [facility] [address] [place] [address] Dr. Pérez Mg Platelet mean volume (Bld) [Entitic vol] 9.1 fL Critically low 9.5-13.5 [facility] Comment on above: Performed By: #### C BC #### [facility] [address] [place] [address] Dr. Pérez Mg PLT 213 103/ul Normal 150-450 [facility] Comment on above: Performed By: #### C BC #### [facility] [address] [place] [address] Dr. Pérez Mg RBC 5.03 106/ul Normal 4.70-6.10 [facility] Comment on above: Performed By: #### C BC #### [facility] [address] [place] [address] Dr. Pérez Mg WBC 6.3 103/ul Normal 4.0-11.0 [facility] Comment on above: Performed By: #### C BC #### [facility] [address] [place] [address] Dr. Pérez Mg GLYCOHEMOGLOBIN A1Con 2021 ADA RECOMMENDATION SEE BELOW Normal [facility] Comment on above: Result Comment: ADA RECOMMENDED LIMIT 4.0 - 6.0 ADA THERAPEUTIC TARGET < 7.0 ACTION SUGGESTED > 7.0 Performed By: #### A 1C #### [facility] [address] [address] [address] Pérez Mg Glucose [Mass/Vol] 105 mg/dL Normal [facility] Comment on above: Performed By: #### A 1C #### [facility] [address] [address] [address] Pérez Mg HbA1c (Bld) [Mass fraction] 5.3 % Normal 4.5-6.2 [facility] Comment on above: Performed By: #### A 1C #### [facility] [address] [address] [address] Pérez Mg LIPID PROFILEon 12-14-2021 CHOL-HDL RATIO NORM SEE BELOW Normal [facility] Comment on above: Result Comment: 3.3 - 4.4 LOW RISK 4.4 - 7.1 AVERAGE RISK 7.1 - 11.0 MODERATE RISK >11.0 HIGH RISK Performed By: #### L IPID, CMP #### [facility] [address] [place] [address] Dr. Pérez Mg Cholesterol [Mass/Vol] 201 mg/dL Critically high <=200 [facility] Comment on above: Performed By: #### L IPID, CMP #### [facility] [address] [place] [address] Dr. Pérez Mg Cholesterol in HDL [Mass/Vol] 41 mg/dL Normal 40-60 [facility] Comment on above: Performed By: #### L IPID, CMP #### [facility] [address] [address] [address] Pérez Mg Cholesterol in LDL [Mass/Vol] 122.8 mg/dL Normal [facility] Comment on above: Performed By: #### L IPID, CMP #### [facility] [address] [address] [address] Pérez Mg Cholesterol.total/Ch olesterol in HDL [Mass ratio] 4.9 {ratio} Normal [facility] Comment on above: Performed By: #### L IPID, CMP #### [facility] [address] [address] [address] Pérez Mg HDL NORMAL > or = 60 mg/dl - LO W CARDIOVASCULAR RISK <40 mg/dl - HIGH CARDIOVASCULAR RISK Normal [facility] Comment on above: Performed By: #### L IPID, CMP #### [facility] [address] [address] [address] Pérez Mg LDL CALC NORMAL SEE BELOW Normal [facility] Comment on above: Result Comment: <100 mg/dl OPTIMAL 100 - 129 mg/dl NEAR OR ABOVE OPTIMAL 130 - 159 mg/dl BORDERLINE HIGH 160 - 189 mg/dl HIGH >190 mg/dl VERY HIGH Performed By: #### L IPID, CMP #### [facility] [address] [place] [address] Dr. Pérez Mg Triglyceride [Mass/Vol] 186 mg/dL Critically high <=150 [facility] Comment on above: Performed By: #### L IPID, CMP #### [facility] [address] [place] [address] Dr. Pérez Mg VLDL CALC 37.2 mg/dL Normal [facility] Comment on above: Performed By: #### L IPID, CMP #### [facility] [address] [place] [address] Dr. Pérez Mg PROF 14(COMP METB)on 022 Albumin [Mass/Vol] 3.9 g/dL Normal 3.4-5.0 [facility] Comment on above: Performed By: #### L IPID, CMP #### [facility] [address] [place] [address] Dr. Pérez Mg Albumin/Globulin [Mass ratio] 1.1 {ratio} Normal [facility] Comment on above: Performed By: #### L IPID, CMP #### [facility] [address] [place] [address] Dr. Pérez Mg ALP [Catalytic activity/Vol] 65 U/L Normal 46-116 [facility] Comment on above: Performed By: #### L IPID, CMP #### [facility] [address] [place] [address] Dr. Pérez Mg ALT [Catalytic activity/Vol] 41 U/L Normal 16-63 [facility] Comment on above: Performed By: #### L IPID, CMP #### [facility] [address] [place] [address] Dr. Pérez Mg Anion gap [Moles/Vol] 10.3 mmol/L Normal [facility] Comment on above: Performed By: #### L IPID, CMP #### [facility] [address] [place] [address] Dr. Pérez Mg AST [Catalytic activity/Vol] 33 U/L Normal 15-37 [facility] Comment on above: Performed By: #### L IPID, CMP #### [facility] [address] [place] [address] Dr. Pérez Mg Bilirubin [Mass/Vol] 0.5 mg/dL Normal 0.2-1.0 [facility] Comment on above: Performed By: #### L IPID, CMP #### [facility] [address] [place] [address] Dr. Pérez Mg Calcium [Mass/Vol] 9.0 mg/dL Normal 8.5-10.1 [facility] Comment on above: Performed By: #### L IPID, CMP #### [facility] [address] [place] [address] Dr. Pérez Mg Chloride [Moles/Vol] 103 mmol/L Normal 98-107 [facility] Comment on above: Performed By: #### L IPID, CMP #### [facility] [address] [place] [address] Dr. Pérez Mg CO2 [Moles/Vol] 27.7 mmol/L Normal 21.0-32.0 [facility] Comment on above: Performed By: #### L IPID, CMP #### [facility] [address] [place] [address] Dr. Pérez Mg Creatinine [Mass/Vol] 0.73 mg/dL Normal 0.70-1.30 [facility] Comment on above: Performed By: #### L IPID, CMP #### [facility] [address] [place] [address] Dr. Pérez Mg EGFR-AF CYPRIOT >60 Normal >=60 [facility] Comment on above: Performed By: #### L IPID, CMP #### [facility] [address] [place] [address] Dr. Pérez Mg EGFR-NON AF CYPRIOT >60 Normal >=60 [facility] Comment on above: Performed By: #### L IPID, CMP #### [facility] [address] [address] [address] Pérez Mg Globulin (S) [Mass/Vol] 3.6 g/dL Normal [facility] Comment on above: Performed By: #### L IPID, CMP #### [facility] [address] [place] [address] Dr. Pérez Mg Glucose [Mass/Vol] 110 mg/dL Critically high 74-106 [facility] Comment on above: Performed By: #### L IPID, CMP #### [facility] [address] [place] [address] Dr. Pérez Mg Potassium [Moles/Vol] 4.0 mmol/L Normal 3.5-5.1 [facility] Comment on above: Performed By: #### L IPID, CMP #### [facility] [address] [place] [address] Dr. Pérez Mg Protein [Mass/Vol] 7.5 g/dL Normal 6.4-8.2 [facility] Comment on above: Performed By: #### L IPID, CMP #### [facility] [address] [place] [address] Dr. Pérez Mg Sodium [Moles/Vol] 137 mmol/L Normal 136-145 [facility] Comment on above: Performed By: #### L IPID, CMP #### [facility] [address] [place] [address] Dr. Pérez Mg Urea nitrogen [Mass/Vol] 16.0 mg/dL Normal 7.0-18.0 [facility] Comment on above: Performed By: #### L IPID, CMP #### [facility] [address] [place] [address] Dr. Pérez Mg Urea nitrogen/Creatinine [Mass ratio] 21.9 mg/mg Normal [facility] Comment on above: Performed By: #### L IPID, CMP #### [facility] [address] [address] [address] éPrez Dee 01-28-2021 CNPN Telephone (CARDMN) NITZA IBANEZ ([id number]) 1960 M Date Time Provider Department 01/28/21 JARROD LUNA CARDMN During your visit today, we recorded the following information about you: Aracelis Raoul 01/28/2021 2:35 PM Signed Outside medical records uploaded to [employer]: CT/OT - CTA chest with contrast - 11/07/2020 Allergies As of Date: 01/28/2021 (No Known Allergies) Date Reviewed: 09/26/2020 Reviewed by: Macarena Payton MD - Fully Assessed Reason for Visit: Received Outside Medical Records [[id number]] Cmt: CT/OT - CTA Chest with Contrast [...] daily as [facility]. [facility] - levothyroxine (SYNTHROID) 25 [...] Encounter Status:Closed by ANA FRAZIER on 01/28/21 [facility] CNOVon 09-26-2020 CNOV Office Visit (CARIMN ) NITZA IBANEZ ([id number]) 1960 M Date Time Provider Department 09/26/20 12:30 PM NIMO ALTMAN During your visit today, we recorded the following information about you: Pulse Respiration Blood pressure Weight 63/minute 12/minute 176/72 69.4 kg Height 1.778 m Nimo Altman MD 10/24/2020 11:55 AM Addendum [facility] [place] [facility] Department of Cardiovascular Medicine SECTION OF CARDIOVASCULAR IMAGING OUTPATIENT VISIT DATE September 26, 2020 OUTPATIENT VISIT TYPE NEW PRIMARY CARE PHYSICIAN: Nehemiah Jimenez MD [address] [place] [id number] REFERRING PHYSICIAN: Jarrod Luna [address] [place] [id number] CHIEF COMPLAINT: Valvular heart disease HISTORY OF PRESENT ILLNESS: Mr. Ibanez is a 60 year old male with history of ?Marfan's syndrome, thoracic aortic aneurysm s/p aortic root replacement (2001), rheumatic heart disease s/p mechanical AVR x 2 (1984, [address]), mechanical MVR ([address]) HLD, HTN, hypothyroidism, pAF presenting for evaluation [...] mouth daily as directed. As directed by [facility] coumadin clinic. levothyroxine (SYNTHROID) [...] Headache, Impai (more content not included)... Normal [facility] CNOVon 07-26-2020 CNOV Office Visit (CARDMN ) NITZA IBANEZ ([id number]) 1960 M Date Time Provider Department 07/26/20 [...] fibrillation, sudden deaths. 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 . Daughter A AND W. 2 grandchildren. Lives in [place], [place]. Habits: Tobacco: none. Alcohol: never. Caffeine: [...] Weakness, paralysis-No, Numbness-No, (more content not included)... [facility]CARDMN[facility] NITZA IBANEZ ([id number]) 1960 M Date Time Provider Department 07/20/20 JARROD LUNA During your visit today, we recorded the following information about you: Aracelis Duvall 07/20/2020 4:14 PM Signed Outside medical records scanned into [employer]. Patient scheduled to see Dr. Jarrod Luna on July 26, 2020. Allergies As of Date: 07/20/2020 (Not on File) Date Reviewed: Never Reviewed Reason for Visit: Received Outside Medical Records [[id number]] Problem List As Of Date: 07/20/2020 (None) Encounter Status:Closed by ARACELIS VALLES on 07/20/20 [facility] CNCOon 07-05-2020 CNCO Letter Text [facility] 06-26-2020 CNPN Telephone (REFPHY) NITZA IBANEZ ([id number]) 1960 M Date Time Provider Department 06/26/20 NO PCP (HISTORICAL) REFPHY During your visit today, we recorded the following information about you: Aj Saez 06/26/2020 12:18 PM Signed Patient: Nitza Ibanez Date of : 1960 Patient phone number: [phone] Referring Provider for the encounter: Nehemiah Jimenez Requesting Provider: Someone that specializes in Valve Disease Reason for requesting visit (RFV/signs and symptoms/diagnosis): Bradycardia, tachycardia Person calling: self Return call to: self Medical Records/Insurance Card scanned into [employer]: Yes Comments: Valve Replacement X2 Allergies As of Date: 06/26/2020 (Not on File) Date Reviewed: Never Reviewed Reason for Visit: External Referrals/resources [909] Problem List As Of Date: 06/26/2020 (None) Encounter Status:Closed by AJ SAEZ on 06/26/20 Normal [facility] Facesheeton 10-27-2019 Facesheet [id number] 0CD:127 Normal [facility] Provider Letter FTMCon 10-25 Provider Letter FT Nehemiah Jimenez [address] [place] [address] Re: NITZA IBANEZ Date of : 1960 Thank your for your referral of Nitza Ibanez who was seen on consultation on 10/25/2019 for epigastric pain and cholelithiasis. I have enclosed my consultation notes for your review. Sincerely, Kevin Martinez MD General Surgery Normal [facility] Ambulatory Clinical Summaryo n 10-25-2019 Ambulatory Clinical Summary {[id number]}CD:[id number] Normal [facility] General Surgery Office/Clini c Noteon 10-25-2019 General Surgery Office/Clinic Note Chief Complaint referral for cholelithiasis HPI Staff 59 year old male presents on consultation from Dr. Jimenez for cholelithiasis. Complains of intermittent abdominal pain for several years. Denies nausea or vomiting. [place] foods do make symptoms worse. Denies diarrhea. RUQ US completed 09/27/19 reported severe cholelithiasis, htn, pulmonary htn, Marfan's syndrome; reports intermittent upper abdominal pain, seen in [place] ED approximately 1 month ago, had epigastric burning pain, constant, radiating to chest; US revealed cholelithiasis, no acute inflammation, normal ducts; transferred to [place] for cardiac cath, reportedly ok, was to see surgeon at [facility] regarding gallbladder, but never set up appointment; [...] risk for surgical intervention; recommend evaluation at [facility] in [place] for their recommendations; patient would likely have more bleeding issues if developed acute cholecystitis due to anticoagulation, so may benefit from a controlled, elective operation. patient will f/u with surgeon he was given in [place]; call with problems/questions.see 2. Cholelithiasis (K80.20: Calculus of gallbladder without cholecystitis without obstruction) see # 1 3. GERD (gastroesophageal reflux disease) (K21.9: Gastro-esophageal reflux disease without esophagitis) see # 1 4. Chronic anticoagulation (Z79.01: joint terminal attack controller (current) use of anticoagulants) see # 1 [...] cancer of bone: Father and Brother. Normal [facility] Comment on above: Result Comment: Elec tronically Signed By: JOAN WOOD, Kevin Drake\Date and Time Signed: 10/25/19 16:58 EDT Physician Referralon 020 Physician Referral [id number] 0CD:127 Normal [facility] Physician Referralon 020 Physician Referral [id number] CD:127 Normal [facility] RAD - Ultrasound Reporton RAD - Ultrasound Report [id number] 0CD:127 Normal [facility] Complete Blood Count Auto Di ffon 05-28-2018 Basophils #/vol (Bld) 0.0 10*3/uL Normal 0.0-0.2 [facility] Comment on above: Order Comment: Comme nt send tubes to 210 Result Comment: PERF ORMED BY: [place] [address] PATHOLOGIST [employer] LESLYE GONZALEZ M.D. Performed By: #### C BC #### [facility] [address] [place] [address] Basophils/100 WBC (Bld) 0.7 % Normal . [facility] Comment on above: Order Comment: Comme nt send tubes to 210 Performed By: #### C BC #### [facility] [address] [place] [address] Eosinophils #/vol (Bld) 0.3 10*3/uL Normal 0.0-0.45 [facility] Comment on above: Order Comment: Comme nt send tubes to 210 Performed By: #### C BC #### [facility] [address] [place] [address] Eosinophils/100 WBC (Bld) 6.0 % Normal . [facility] Comment on above: Order Comment: Comme nt send tubes to 210 Performed By: #### C BC #### [facility] [address] [place] [address] Erythrocyte distribution width Ratio (RBC) 14.1 % Normal 12.0-14.8 [facility] Comment on above: Order Comment: Comme nt send tubes to 210 Performed By: #### C BC #### [facility] [address] [place] [address] Hematocrit Volume Fraction (Bld) 44.5 % Normal 38.8-50.0 [facility] Comment on above: Order Comment: Comme nt send tubes to 210 Performed By: #### C BC #### [address] Hemoglobin mass conc (Bld) 15.1 g/dL Normal 13.0-17.0 [facility] Comment on above: Order Comment: Comme nt send tubes to 210 Performed By: #### C BC #### [facility] [address] [place] [address] Lymphocytes #/vol (Bld) 0.7 10*3/uL Low 1.00-4.8 [facility] Comment on above: Order Comment: Comme nt send tubes to 210 Performed By: #### C BC #### [address] Lymphocytes/100 WBC (Bld) 11.9 % Normal . [facility] Comment on above: Order Comment: Comme nt send tubes to 210 Performed By: #### C BC #### [address] MCH Entitic mass (RBC) 33.9 g/dL Normal 32.5-35.6 [facility] Comment on above: Order Comment: Comme nt send tubes to 210 Performed By: #### C BC #### [address] MCH Entitic mass (RBC) 28.8 pg Normal 27.5-35.2 [facility] Comment on above: Order Comment: Comme nt send tubes to 210 Performed By: #### C BC #### [address] MCV Entitic volume (RBC) 85.0 fL Normal 83.5-101 [facility] Comment on above: Order Comment: Comme nt send tubes to 210 Performed By: #### C BC #### [facility] [address] [place] [address] Monocytes #/vol (Bld) 0.7 10*3/uL Normal 0.0-0.8 [facility] Comment on above: Order Comment: Comme nt send tubes to 210 Performed By: #### C BC #### [address] [place] [address] [place] Monocytes/100 WBC (Bld) 11.8 % Normal . [facility] Comment on above: Order Comment: Comme nt send tubes to 210 Performed By: #### C BC #### [facility] [address] Neutrophils #/vol (Bld) 3.9 10*3/uL Normal 1.8-7.7 [facility] Comment on above: Order Comment: Comme nt send tubes to 210 Performed By: #### C BC #### [facility] [address] [place] [address] Neutrophils/100 WBC (Bld) 69.6 % Normal . [facility] Comment on above: Order Comment: Comme nt send tubes to 210 Performed By: #### C BC #### [facility] [address] [place] [address] Nucleated RBC/100 WBC Ratio (Bld) 0.0 % Normal 0-0.5 [facility] Comment on above: Order Comment: Comme nt send tubes to 210 Performed By: #### C BC #### [facility] [address] [place] [address] Platelet mean volume Entitic volume (Bld) 7.4 fL Normal 6.6-10.1 [facility] Comment on above: Order Comment: Comme nt send tubes to 210 Performed By: #### C BC #### [facility] [address] [place] [address] Platelets #/vol (Bld) 237 10*3/uL Normal 150-450 [facility] Comment on above: Order Comment: Comme nt send tubes to 210 Performed By: #### C BC #### [facility] [address] [place] [address] [place] RBC #/vol (Bld) 5.24 10*6/uL Normal 3.90-5.60 [facility] Comment on above: Order Comment: Comme nt send tubes to 210 Performed By: #### C BC #### [facility] [address] [place] [address] [place] WBC #/vol (Bld) 5.6 10*3/uL Normal 4.1-10.5 [facility] Comment on above: Order Comment: Javon alejo send tubes to 210 Performed By: #### C #### [facility] [address] [place] [address] [facility] James 05-28-2018 L -- ---- Specimen: [id number] Received: 05/28/18 Status: CAIO Scott Num: [id number] Spec Type: Surgical Subm Dr: Jim Jules Jr, DO Tissues: A Colon - Polyp (SIGMOID POLYP) Procedures: HE Stain/2, Gross/Micro L4 ---- Patient Age/Sex Location Account Attending Physician ---- Nitza Ibanez/M [id number] Jim Jules Jr, ---- SPEC NUM: RECD: 05/28/18 STATUS: CAIO SCOTT NUM: [id number] MARITO: 05/28/18 [facility] DR: Jim Jules Jr, DO ENTERED: 05/28/[address] [facility] [address]: SPEC TYPE: Surgical DEPT: S ORDERED: [...] microscopic findings support the above pathologic diagnosis. [address] A. - - SIGMOID POLYP ---- ---- Specimen: Received: 05/28/18 Status: CAIO Sonia Num: [id number] Spec Type: Surgical Subm Dr: Jim Jules Jr DO Tissues: A Colon - Polyp (SIGMOID POLYP) Procedures: HE Stain/2, Gross/Micro L4 ---- Patient: Nitza Ibanez [id number] (Continued) ---- Signed (signature on file) Leslye Gonzalez MD 05/31/18 1553 Normal [facility] Partial Thromboplastin Timeo n 05-28-2018 aPTT Coag time (Bld) 40.4 s High 23.0-35.[address] [facility] Comment on above: Order Comment: Commmagen nt send tubes to 210 Result Comment: PERF ORMED BY: [place] [address] PATHOLOGIST [employer] LESLYE GONZALEZ M.D. Performed By: #### P T, PTT #### [facility] [address] [place] [address] Prothrombin Time INRon 05-28 INR Coag RelTime (PPP) 1.4 {INR} Normal [facility] Comment on above: Order Comment: Comme [...] Performed By: #### P T, PTT #### [facility] [address] [place] [address] [facility] Prothrombin time (PT) Coag time (PPP) 16.4 s High 9.0-12.9 [facility] Comment on above: Order Comment: Comme nt send tubes to 210 Performed By: #### P T, PTT #### [facility] [address] [place] [address] [facility] Encounters Encounter Date Encounter Type Care Provider Facility Start: 10-21-2023 End: 10-21-2023 ambulatory MACARENA GARCIA Not Available Start: 10-20-2023 ambulatory [facility] Start: 09-29-2023 End: 09-30-2023 ambulatory [facility] Start: 08-11-2023 ambulatory [facility] Start: 06-22-2023 End: 06-22-2023 ambulatory [facility] Start: 06-02-2023 End: 06-02-2023 ambulatory [facility] Start: 04-15-2023 End: 04-15-2023 ambulatory HONORIO [facility] Start: 11-05-2022 Refill Jarrod Amezcua Work Phone: Cardiology Comment on above: Refill Request Start: 12-18-2021 Encounter for genera l adult medical examination without abnormal findings DR NEHEMIAH JIMENEZ [facility] Start: 12-14-2021 End: 12-15-2021 ambulatory [...] Comment on above: Performed By: #### P [facility] #### [facility] [address] [place] [address] Dr. Pérez Mg Plan of Treatment Date Care Activity Detail Author Start: 10-17-2022 Influenza vaccination Influenza Vacc ine (#1) [facility] Start: 02-16-2022 Depression Assessment Depression Ass essment [facility] Start: 10-17-2021 Influenza vaccination INFLUENZA (#1) [facility] Start: 06-18-2020 COVID-19 VACCINE (2 - Booster for Rowdy series) COVID-19 VACCINE (2 - Booster for Rowdy series) [facility] Start: 2014 PROSTATE CANCER SCRE ENING DISCUSSION PROSTATE CANCER SCREENING DISCUSSION [facility] Start: 2009 SHINGRIX VACCINE (1 of 2) SHINGRIX V ACCINE (1 of 2) [facility] Start: 2004 COLOGUARD (FIT-DNA) COLOGUARD (FIT-D NA) [facility] Start: 2004 Colonoscopy COLONOSCOPY [facility] Start: 2004 COLORECTAL CANCER SCREENING COLORECTAL CANCER SCREENING [facility] Start: [address] COLONOGRAPHY [facility] Start: 2004 DIABETES SCREEN DIABETES SCREEN [facility] Start: 2004 Diabetes Screening Diabetes Screenin g [facility] Start: 2004 FECAL OCCULT BLOOD FECAL OCCULT BLOO D [facility] Start: 2004 SIGMOIDOSCOPY SIGMOIDOSCOPY [facility] Start: 1994 Lipid 1996 panel - S brandon or Plasma Lipid Screening [facility] Start: 1994 LIPID SCREEN LIPID SCREEN [facility] Start: 1978 Urine microalbumin profile [facility] Start: 1977 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 ANNUAL PCP TEAM CHRONIC DISEASE VISIT [facility] Start: 1977 BP CONTROLLED (<130/80) BP CONTROLLE D (<130/80) [facility] Start: 1977 HEPATITIS C SCREENING HEPATITIS C SC REENING [facility] Start: 1977 HIV SCREENING HIV SCREENING [facility] Start: 1971 Adult depression scr eening assessment DEPRESSION SCREENING [facility] Immunizations Immunization Date Immunization Notes Care Provider Fa joan 12-28-2019 influenza virus vacc ine, unspecified formulation Jarrod Luna MD Work Phone: [facility] Payers Date Payer Category Payer Unknown [id number] 2023 Unknown [id number] 2020 Unknown [employer] ACCE SS PPO [id number] 2020-Present [phone] [address] [place] [address] PPO [id number] 2013 Unknown [facility] [facility] [id number] 2013-Present HMO [id number] 1959 Unknown [id number] 1959 Unknown [id number] 1959 Unknown [id number] 1959 Self-pay 1959 Unknown [id number] Social History Date Type Detail [facility] Start: 1960 Sex Assigned At Not on file [facility] Start: 07-26-2020 [facility] tobacco [facility] Work Phone: Start: 07-26-2020 Tobacco use and exposure Smokeless tobacco non-user [facility] Work Phone: Start: 09-26-2020 Alcohol intake Lifetime non-d jose e (finding) [facility] Start: 07-26-2020 History SDOH Alcohol Frequency 1 [facility] Start: 07-26-2020 End: 09-26-2020 History of Social function [facility] Start: 07-26-2020 End: 09-26-2020 Tobacco use panel [facility] National Score (1-10 0), lower number is lower risk Not on file [facility] Clinical Notes 06-26-2020 to 09-29-2023 Telephone Encounter - Mary Fowler - 11/05/2022 9:55 AM EDTTelephone Encounter - Aracelis Silveira - 09/25/2021 7:16 AM EDTTelephone Encounter - Aj Saez - 06/26/2020 12:16 PM EDT Note Date & Type Note Facility 09-29-2023 Note [place] [facility] Consult Note Reason for visit: AF, [...] At one point was being seeing by [facility] EP for PPM but no PPM [...] 125, triglycerides 162, hemoglobin A1c 5.[address] [facility] cardiology 09/2020 HISTORY OF PRESENT ILLNESS: [...] on file Intimate Partner Violence: Unknown (04/10/2023) [place] Safety & Environment Fear of Current or [...] of Systems Cardiovascular (more content not included)... [facility] 06-22-2023 Note LOOP IMPLANT PROCEDU RE [...] the sternum on the left using the [employer] tool. The loop recorder was then [...] the incision. Matt Willis MD Cardiac Electrophysiology. [facility] 06-02-2023 Note [place] Electrophysiology Consult Note Reason for visit: AF, [...] At one point was being seeing by [facility] EP for PPM but no PPM [...] 125, triglycerides 162, hemoglobin A1c 5.[address] [facility] cardiology 09/2020 HISTORY OF PRESENT ILLNESS: [...] on file Intimate Partner Violence: Unknown (04/10/2023) [place] Safety & Environment Fear of Current or [...] for irregular he (more content not included)... [facility] 04-15-2023 Note [place] Electrophysiology Consult Note [...] At one point was being seeing by [facility] EP for PPM but no PPM [...] 125, triglycerides 162, hemoglobin A1c 5.[address] [facility] cardiology 09/2020 HISTORY OF PRESENT ILLNESS: [...] on file Intimate Partner Violence: Unknown (04/10/2023) [place] Safety & [place] Fear of Current or [...] by mouth every (more content not included)... [facility] 11-05-2022 Miscellaneous Notes Call from patient requesting refill. Requested Prescriptions Pending Prescriptions Disp Refills losartan (COZAAR) 50 mg tablet [Pharmacy Med Name: LOSARTAN POTASSIUM 50 MG TAB] 180 tablet 3 Sig: take one tablet by mouth twice a day Patient last seen 09/26/20 Mary Fowler documented in this encounter [facility] 09-25-2021 Miscellaneous Notes Electronic request for refill. Requested Prescriptions Pending Prescriptions Disp Refills losartan (COZAAR) 50 mg tablet [Pharmacy Med Name: LOSARTAN POTASSIUM 50 MG TAB] 180 tablet 3 Sig: TAKE 1 TABLET BY MOUTH TWICE A DAY Last office visit in was 07/26/2020 Aracelis Silveira documented in this encounter [facility] 09-26-2020 Note HNO ID: [id number] Author: Nimo Altman MD Service: ? Author Type: Physician Type: Progress Notes Filed: 10/24/2020 11:55 AM Note Text: [facility] [place] [facility] Department of Cardiovascular Medicine SECTION OF CARDIOVASCULAR IMAGING OUTPATIENT VISIT DATE September 26, 2020 OUTPATIENT VISIT TYPE NEW PRIMARY CARE PHYSICIAN: Nehemiah Jimenez MD [address] [place] [address] REFERRING PHYSICIAN: Jarrod Luna [address] [facility] [address] CHIEF COMPLAINT: Valvular heart disease HISTORY OF [...] daily as [facility]. [facility] levothyroxine (SYNTHROID) 25 mcg [...] GASTROINTESTINAL: Negative for: (more content not included)... [facility] 07-26-2020 Note HNO ID: [id number] Author: Daksha Weir Service: ? Author Type: ? Type: Progress Notes Filed: 07/26/2020 2:25 PM Note Text: EVENT MONITOR DISPOSABLE PATCH INSTRUCTIONS Patient Name: Nitza Ibanez [facility] Number: [id number] Skin prepped and cleansed with alcohol Patch secured to prepped area Monitor Activated Serial #: [id number] Patient Instructed: 1.) Prescribed order timeframe 2.) Bathing guidelines 3.) Usage of event button and diary documentation 4.) Return of monitor at the end of prescribed order 5.) Call with problems [phone] or [phone] ext. [phone] Patient expresses a good understanding of instructions Daksha Weir [facility] 07-26-2020 Note Education (CARDMN) NITZA IBANEZ ([id number]) 1960 M Date Time Provider Department 07/26/20 2:00 PM ARRHYTHMIA MONITORING LAB CARDMN Reason for Visit: ZIO PATCH [Other] Progress Notes: Daksha Weir 07/26/2020 2:25 PM Signed EVENT MONITOR DISPOSABLE PATCH INSTRUCTIONS Patient Name: Nitza Ibanez Clinic Number: [id number] Skin prepped and cleansed with alcohol Patch secured to prepped area Monitor Activated Serial #: [id number] Patient Instructed: 1.) Prescribed order timeframe 2.) Bathing guidelines 3.) Usage of event button and diary documentation 4.) Return of monitor at the end of prescribed order 5.) Call with problems [phone] or [phone] ext. [phone] Patient expresses a good understanding of instructions [...] Encounter Status:Closed by DAKSHA GRAVES on 07/26/20 [facility] 07-26-2020 Note HNO ID: [id number] Author: Jarrod Luna MD Service: ? Author [...] deaths. 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 . Daughter A AND W. 2 grandchildren. Lives in [place], [place]. Habits: Tobacco: none. Alcohol: never. Caffeine: [...] sweating-No, Frequent urination (more content not included)... [facility] 07-26-2020 Note HNO ID: [id number] Author: Jarrod Luna MD Service: ? Author [...] aortic valve with sinus bradycardia 54 bpm. [facility] 06-26-2020 Miscellaneous Notes Patient: Nitza Ibanez Date of : 1960 Patient phone number: [phone] Referring Provider for the encounter: Nehemiah Jimenez Requesting Provider: Someone that specializes in Valve Disease Reason for requesting visit (RFV/signs and symptoms/diagnosis): Bradycardia, tachycardia Person calling: self Return call to: self Medical Records/Insurance Card scanned into [employer]: Yes Comments: Valve Replacement X2 documented in this encounter [facility] Summary Purpose Family History No [...] section and content) DATE CREATED AUTHOR 07/08/2018 [facility] DATE CREATED AUTHOR AUTHOR'S ORGANIZ ATION 10/27/2019 [facility] DATE CREATED AUTHOR AUTHOR'S ORGANIZ ATION 03/19/2021 [facility] DATE CREATED AUTHOR AUTHOR'S ORGANIZ ATION 04/02/20[facility] DATE CREATED AUTHOR AUTHOR'S ORGANIZ ATION 10/22/2023 [facility] DATE CREATED AUTHOR AUTHOR'S ORGANIZ ATION 10/23/2023 [facility] dical Specialists [facility] Source Comments (unrecognize d section and content) In the event this informatio n is protected by the Federal Confidentiality of Alcohol and Drug Abuse Patient Records regulations: The Federal rules restrict any use of the information to criminally investigate or prosecute any alcohol or drug abuse patient.[facility] the event this information is protected by the Federal Confidentiality of Alcohol and Drug Abuse Patient Records regulations: The Federal rules restrict any use of the information to criminally investigate or prosecute any alcohol or drug abuse patient.[facility] the event this information is protected by the Federal Confidentiality of Alcohol and Drug Abuse Patient Records regulations: The Federal rules restrict any use of the information to criminally investigate or prosecute any alcohol or drug abuse patient.[facility] Reason for Visit (unrecogniz ed section and content) Reason Comments External Referrals/resources Reason Comments Refill Request Care Teams (unrecognized sec tion and content) Comparison Shopper Relationship Specialty Start Date End Date Nehemiah Jimenez MD [address] [place] [address] PCP - General Family Practice 06/06/13 Abner Young [address] [address] Referring Cardiology 07/26/20 Nimo Altman MD [address] [place] [address] Primary Staff Physician Cardiology 09/26/20 Comparison Shopper Relationship Specialty Start Date End Date Nehemiah Jimenez MD PCP - General Family Medicine 06/06/13 Abner Young [address] [address] Referring Cardiology 07/26/20 Nimo Altman MD [address] [place] [address] Primary Staff Physician Cardiology 09/26/20 FOR RECORDS [...] BE BASED ON THE PRIMARY CLINICAL RECORDS. [employer] [facility]. provides no warranty or guarantee of the accuracy or completeness of information in this document.
== END 2023-11-18 14:51 | disposition home or self-care (01) ==
LOC: VC 14:59
PROVIDERS: PCP Physician Assistant; Visit Provider Physician Assistant
DX: R09.89 Other specified symptoms and signs involving the circulatory and respiratory systems (principal)
CPT/HCPCS: 93923

== ENCOUNTER 2023-12-08 15:32 | Outpatient (OUT) | payer BC, SELFPAY ==
--- OUTSIDE RECORDS SUMMARY | 2023-12-08 15:37 | XMS_ITS | CCD ---
Author Organization [facility] ion Partnership [facility] Care Team Providers Care Family Service Aide Name Role Phone Nehemiah Jimenez Primary Care Provider Nehemiah Jimenez Unavailable Nehemiah Jimenez MD Primary Care Provider [phone] Abner Young Unavailable Dianne WOOD, Nimo Garza Unavailable DR NEHEMIAH JIMENZE Attending Unavailable ARTUR, DR CERNA Admitting Unavailable ARTUR, DR CERNA Primary Care Unavailable ARTUR, DR CERNA Consulting Unavailable ARTUR, DR CERNA Attending Unavailable ARTUR, DR CERNA Admitting Unavailable ARTUR, DR CERNA Primary Care Unavailable Nehemiah Jimenez MD Primary Care Provider [phone] Abner Young Unavailable Dianne WOOD, Nimo Garza Unavailable MACARENA GARCIA Attending Unavailable MATT WILLIS Referring Unavailable MATT WILLIS Referring Unavailable JUAN CROFT Referring Unavailable HONORIO EVANS Attending Unavailable MATT WILLIS Admitting Unavailable MATT WILLIS Attending Unavailable MATT WILLIS Attending Unavailable MATT WILLIS Attending Unavailable Medications Current Medications Medication Drug [...] as directed. As directed by [facility] coumadin clinic. 0 10/21/2018 Active Comment on above: Take 5 mg by mouth d aily as directed. As directed by [facility] coumadin clinic. Problems Active Problems Problem [...] Classification Problem Date Documented Da te Episodic/Chronic Cardiac dysrhythmias (2 sources) Palpitations; Translations: [Palpitations] Onset: 08-11-2023 Episodic Other lower respiratory disease (2 sources) Snoring; Translations: [Snoring] Onset: 04-15-2023 Episodic Other screening for suspected conditions (not mental disorders or infectious disease) (1 source) Encounter for screening for malignant neoplasm of prostate; Translations: [ENC SCREEN MALIG NEOPLASM PROSTATE] Onset: 12-18-2021 Episodic Results Test Name Value Interpretation Reference Range Facility Office Visiton 09-29-2023 Follow-up visit [id number] Indio Ibanez 1960 M Date Provider Department Center 09/29/2023 MATT STANFORD Family History Problem Relation Age of Onset Cancer Mother Cancer Father Diabetes Sister Cancer Brother Diabetes Brother Family Status - Relation Status Age at Mother Father Sister Brother Level of Service:33648 PA OFFICE/OUTPATIENT ESTABLISHED LOW MDM 20 MIN Normal [facility] 06-22-2023 [facility] Electrophysiology Consult Note Reason for visit: [...] At one point was being seeing by [facility] EP for PPM but no PPM [...] 125, triglycerides 162, hemoglobin A1c 5.4 Per [facility] cardiology 09/2020 HISTORY OF PRESENT ILLNESS: [...] on file Intimate Partner Violence: Unknown (04/10/2023) [place] Safety & Environment Fear of Current or [...] Constitutional Gener (more content not included)... Normal [facility] NURSNOTEon 06-22-2023 NURSNOTE RN educated pt on d/ c instructions. RN encouraged pt to voice any questions or concerns. Pt verbalizes no questions or concerns at this time. Pt was wheeled off of unit with all of belongings. [facility] Office Visiton 06-02-2023 Follow-up visit [id number] Indio Ibanez 1960 M Date Provider Department Center 06/02/2023 [place]-MATT WILLIS SAMUEL Riggins Family History Problem Relation Age of Onset Cancer Mother Cancer Father Diabetes Sister Cancer Brother Diabetes Brother Family Status - Relation Status Age at Mother Father Sister Brother Level of Service:66363 PA OFFICE/OUTPATIENT NEW MODERATE MDM 45 MINUTES [facility] 36on 04-17-2023 36 He can restart his toprol XL 100mg once daily only Normal [facility] Office Visiton 04-15-2023 Follow-up visit [id number] Indio Ibanez 1960 M Date Provider Department Center 04/15/2023 [place]-HONORIO EVANS Family History Problem Relation Age of Onset Cancer Mother Cancer Father Diabetes Sister Cancer Brother Diabetes Brother Family Status - Relation Status Age at Mother Father Sister Brother Level of Service:17445 PA OFFICE/OUTPATIENT NEW MODERATE MDM 45 MINUTES Reason for Visit and Comments: New Patient [632] - A Fib Normal [facility] CBC AUTO DIFFon 12-14-2021 BASO # 0.0 103/ul Normal 0.0-0.1 [facility] Comment on above: Performed By: #### C BC #### [facility] [address] [place] [address] Dr. Pérez Mg Basophils/100 WBC (Bld) 0.6 % Normal 0.2-2.0 [facility] Comment on above: Performed By: #### C BC #### [facility] [address] [place] [address] Dr. Pérez Mg EO # 0.5 103/ul Normal 0.0-0.7 [facility] Comment on above: Performed By: #### C BC #### [facility] [address] [place] [address] Dr. Pérez Mg Eosinophils/100 WBC (Bld) 8.6 % Critically high 0.9-7.0 [facility] Comment on above: Performed By: #### C BC #### [facility] [address] [place] [address] Dr. Pérez Mg Erythrocyte distribution width (RBC) [Ratio] 13.2 % Normal 11.0-15.0 [facility] Comment on above: Performed By: #### C BC #### [facility] [address] [place] [address] Dr. Pérez Mg Hematocrit (Bld) [Volume fraction] 43.2 % Normal 42.0-54.0 [facility] Comment on above: Performed By: #### C BC #### [facility] [address] [place] [address] Dr. Pérez Mg Hemoglobin (Bld) [Mass/Vol] 14.6 g/dL Normal 14.0-18.0 [facility] Comment on above: Performed By: #### C BC #### [facility] [address] [place] [address] Dr. Pérez Mg IG # 0.06 10e3/ul Critically high 0.00-0.03 [facility] Comment on above: Performed By: #### C BC #### [facility] [address] [place] [address] Dr. Pérez Mg IG % 1.0 % Critically high 0.0-0.5 [facility] Comment on above: Performed By: #### C BC #### [facility] [address] [place] [address] Dr. Pérez Mg LYMPH # 1.1 103/ul Critically low 1.2-3.8 [facility] Comment on above: Performed By: #### C BC #### [facility] [address] [place] [address] Dr. Pérez Mg Lymphocytes/100 WBC (Bld) 17.5 % Critically low 20.5-60.0 [facility] Comment on above: Performed By: #### C BC #### [facility] [address] [place] [address] Dr. Pérez Mg MANUAL DIFF REQ NO Normal [facility] Comment on above: Performed By: #### C BC #### [facility] [address] [place] [address] Dr. Pérez Mg MCH (RBC) [Entitic mass] 29.0 pg Normal 25.9-34.0 [facility] Comment on above: Performed By: #### C BC #### [facility] [address] [place] [address] Dr. Pérez Mg MCHC (RBC) [Mass/Vol] 33.8 g/dL Normal 29.9-35.2 [facility] Comment on above: Performed By: #### C BC #### [facility] [address] [place] [address] Dr. Pérez Mg MCV (RBC) [Entitic vol] 85.9 fL Normal 80.0-94.0 [facility] Comment on above: Performed By: #### C BC #### [facility] [address] [place] [address] Dr. Pérez Mg MONO # 0.5 103/ul Normal 0.3-0.8 [facility] Comment on above: Performed By: #### C BC #### [facility] [address] [address] [address] Pérez Mg Monocytes/100 WBC (Bld) 8.3 % Normal 1.7-12.0 [facility] Comment on above: Performed By: #### C BC #### [facility] [address] [address] [address] Pérez Mg NEUT # 4.0 103/ul Normal 1.4-6.5 [facility] Comment on above: Performed By: #### C BC #### [facility] [address] [address] [address] Pérez Mg Neutrophils/100 WBC (Bld) 64.0 % Normal 43.0-75.0 [facility] Comment on above: Performed By: #### C BC #### [facility] [address] [place] [address] Dr. Pérez Mg Platelet mean volume (Bld) [Entitic vol] 9.1 fL Critically low 9.5-13.5 [facility] Comment on above: Performed By: #### C BC #### [facility] [address] [place] [address] Dr. Pérez Mg PLT 213 103/ul Normal 150-450 [facility] Comment on above: Performed By: #### C BC #### [facility] [address] [place] [address] Dr. Pérez Mg RBC 5.03 106/ul Normal 4.70-6.10 [facility] Comment on above: Performed By: #### C BC #### [facility] [address] [place] [address] Dr. Pérez Mg WBC 6.3 103/ul Normal 4.0-11.0 [facility] Comment on above: Performed By: #### C BC #### [facility] [address] [place] [address] Dr. Pérez Mg GLYCOHEMOGLOBIN A1Con 2021 ADA RECOMMENDATION SEE BELOW Normal [facility] Comment on above: Result Comment: ADA RECOMMENDED LIMIT 4.0 - 6.0 ADA THERAPEUTIC TARGET < 7.0 ACTION SUGGESTED > 7.0 Performed By: #### A 1C #### [facility] [address] [address] [address] Pérez Mg Glucose [Mass/Vol] 105 mg/dL Normal [facility] Comment on above: Performed By: #### A 1C #### [facility] [address] [address] [address] Pérez Mg HbA1c (Bld) [Mass fraction] 5.3 % Normal 4.5-6.2 [facility] Comment on above: Performed By: #### A 1C #### [facility] [address] [address] [address] Pérez Mg LIPID PROFILEon 12-14-2021 CHOL-HDL RATIO NORM SEE BELOW Normal [facility] Comment on above: Result Comment: 3.3 - 4.4 LOW RISK 4.4 - 7.1 AVERAGE RISK 7.1 - 11.0 MODERATE RISK >11.0 HIGH RISK Performed By: #### L IPID, CMP #### [facility] [address] [place] [address] Dr. Pérez Mg Cholesterol [Mass/Vol] 201 mg/dL Critically high <=200 [facility] Comment on above: Performed By: #### L IPID, CMP #### [facility] [address] [address] [address] Pérez gM Cholesterol in HDL [Mass/Vol] 41 mg/dL Normal 40-60 [facility] Comment on above: Performed By: #### L IPID, CMP #### [facility] [address] [address] [address] Pérez Mg Cholesterol in LDL [Mass/Vol] 122.8 mg/dL Normal [facility] Comment on above: Performed By: #### L IPID, CMP #### [facility] [address] [place] [address] Dr. Pérez Mg Cholesterol.total/Ch olesterol in HDL [Mass ratio] 4.9 {ratio} Normal [facility] Comment on above: Performed By: #### L IPID, CMP #### [facility] [address] [address] [address] Pérez Mg HDL NORMAL > or = 60 mg/dl - LO W CARDIOVASCULAR RISK <40 mg/dl - HIGH CARDIOVASCULAR RISK Normal [facility] Comment on above: Performed By: #### L IPID, CMP #### [facility] [address] [address] [address] Pérez Mg LDL CALC NORMAL SEE BELOW Normal [facility] Comment on above: Result Comment: <100 mg/dl OPTIMAL 100 - 129 mg/dl NEAR OR ABOVE OPTIMAL 130 - 159 mg/dl BORDERLINE HIGH 160 - 189 mg/dl HIGH >190 mg/dl VERY HIGH Performed By: #### L IPID, CMP #### [facility] [address] [place] [address] Dr. Pérez Mg Triglyceride [Mass/Vol] 186 mg/dL Critically high <=150 [facility] Comment on above: Performed By: #### L IPID, CMP #### [facility] [address] [address] [address] Pérez Mg VLDL CALC 37.2 mg/dL Normal [facility] Comment on above: Performed By: #### L IPID, CMP #### [facility] [address] [place] [address] Dr. Pérez Mg PROF 14(COMP METB)on 022 Albumin [Mass/Vol] 3.9 g/dL Normal 3.4-5.0 [facility] Comment on above: Performed By: #### L IPID, CMP #### [facility] [address] [place] [address] Dr. Pérez Mg Albumin/Globulin [Mass ratio] 1.1 {ratio} Normal [facility] Comment on above: Performed By: #### L IPID, CMP #### [facility] [address] [place] [address] Dr. Pérez Mg ALP [Catalytic activity/Vol] 65 U/L Normal 46-116 [facility] Comment on above: Performed By: #### L IPID, CMP #### [facility] [address] [address] [address] Pérez Mg ALT [Catalytic activity/Vol] 41 U/L Normal 16-63 [facility] Comment on above: Performed By: #### L IPID, CMP #### [facility] [address] [place] [address] Dr. Pérez Mg Anion gap [Moles/Vol] 10.3 mmol/L Normal [facility] Comment on above: Performed By: #### L IPID, CMP #### [facility] [address] [place] [address] Dr. Pérez Mg AST [Catalytic activity/Vol] 33 U/L Normal 15-37 [facility] Comment on above: Performed By: #### L IPID, CMP #### [facility] [address] [place] [address] Dr. Pérez Mg Bilirubin [Mass/Vol] 0.5 mg/dL Normal 0.2-1.0 [facility] Comment on above: Performed By: #### L IPID, CMP #### [facility] [address] [place] [address] Dr. Pérez Mg Calcium [Mass/Vol] 9.0 mg/dL Normal 8.5-10.1 [facility] Comment on above: Performed By: #### L IPID, CMP #### [facility] [address] [place] [address] Dr. Pérez Mg Chloride [Moles/Vol] 103 mmol/L Normal 98-107 [facility] Comment on above: Performed By: #### L IPID, CMP #### [facility] [address] [place] [address] Dr. Pérez Mg CO2 [Moles/Vol] 27.7 mmol/L Normal 21.0-32.0 [facility] Comment on above: Performed By: #### L IPID, CMP #### [facility] [address] [place] [address] Dr. Pérez Mg Creatinine [Mass/Vol] 0.73 mg/dL Normal 0.70-1.30 [facility] Comment on above: Performed By: #### L IPID, CMP #### [facility] [address] [address] [address] Pérez Mg EGFR-AF RUSSIAN >60 Normal >=60 [facility] Comment on above: Performed By: #### L IPID, CMP #### [facility] [address] [address] [address] Pérez Mg EGFR-NON AF RUSSIAN >60 Normal >=60 [facility] Comment on above: Performed By: #### L IPID, CMP #### [facility] [address] [address] [address] Pérez Mg Globulin (S) [Mass/Vol] 3.6 g/dL Normal [facility] Comment on above: Performed By: #### L IPID, CMP #### [facility] [address] [place] [address] Dr. Pérez Mg Glucose [Mass/Vol] 110 mg/dL Critically high 74-106 [facility] Comment on above: Performed By: #### L IPID, CMP #### [facility] [address] [address] [address] Pérez Mg Potassium [Moles/Vol] 4.0 mmol/L Normal 3.5-5.1 [facility] Comment on above: Performed By: #### L IPID, CMP #### [facility] [address] [place] [address] Dr. Pérez Mg Protein [Mass/Vol] 7.5 g/dL Normal 6.4-8.2 [facility] Comment on above: Performed By: #### L IPID, CMP #### [facility] [address] [place] [address] Dr. Pérez Mg Sodium [Moles/Vol] 137 mmol/L Normal 136-145 [facility] Comment on above: Performed By: #### L IPID, CMP #### [facility] [address] [address] [address] Pérez Mg Urea nitrogen [Mass/Vol] 16.0 mg/dL Normal 7.0-18.0 [facility] Comment on above: Performed By: #### L IPID, CMP #### [facility] [address] [address] [address] Pérez Mg Urea nitrogen/Creatinine [Mass ratio] 21.9 mg/mg Normal [facility] Comment on above: Performed By: #### L IPID, CMP #### [facility] [address] [address] [address] Pérez Dee 01-28-2021 CNPN Telephone (CARDMN) NITZA IBANEZ ([id number]) 1960 M Date Time Provider Department 01/28/21 JARROD LUNA CARDMN During your visit today, we recorded the following information about you: Araceliscasie Silveira 01/28/2021 2:35 PM Signed Outside medical records uploaded to [employer]: CT/OT - CTA chest with contrast - 11/07/2020 Allergies As of Date: 01/28/2021 (No Known Allergies) Date Reviewed: 09/26/2020 Reviewed by: Macarena Payton MD - Fully Assessed Reason for Visit: Received Outside Medical Records [[id number]] Cmt: CT/OT - CTA Chest with Contrast [...] as directed. As directed by [facility] coumadin clinic. - levothyroxine (SYNTHROID) 25 mcg [...] Encounter Status:Closed by ANA FRAZIER on 01/28/21 [facility] CNOVon 09-26-2020 CNOV Office Visit (CITLALLI ) RUBENNITZA Kevin ([id number]) 1960 M Date Time Provider Department 09/26/20 12:30 PM NIMO ALTMAN During your visit today, we recorded the following information about you: Pulse Respiration Blood pressure Weight 63/minute 12/minute 176/72 69.4 kg Height 1.778 m Nimo Altman MD 10/24/2020 11:55 AM Addend[facility] [place] [facility] Tse Department of Cardiovascular Medicine SECTION OF CARDIOVASCULAR IMAGING OUTPATIENT VISIT DATE September 26, 2020 OUTPATIENT VISIT TYPE NEW PRIMARY CARE PHYSICIAN: Nehemiah Jimenez MD [address] [place] [id number] REFERRING PHYSICIAN: Jarrod Luna [address] [place] [phone] CHIEF COMPLAINT: Valvular heart disease HISTORY OF [...] mouth daily as directed. [facility]. levothyroxine (SYNTHROID) 25 mcg tablet [...] Headache, Impai (more content not included)... Normal [facility] CNOVon 07-26-2020 CNOV Office Visit (CARDMN ) NITZA IBANEZ ([id number]) 1960 M Date Time Provider Department 07/26/20 [...] fibrillation, sudden deaths. 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 . Daughter A AND W. 2 grandchildren. Lives in [place], [place]. Habits: Tobacco: none. Alcohol: never. Caffeine: [...] Weakness, paralysis-No, Numbness-No, (more content not included)... [facility] 07-20-2020 CNPN Telephone (CARDMN) NITZA IBANEZ ([id number]) 1960 M Date Time Provider Department 07/20/20 JARROD LUNA During your visit today, we recorded the following information about you: Aracelis Duvall 07/20/2020 4:14 PM Signed Outside medical records scanned into [employer]. Patient scheduled to see Dr. Jarrod Luna on July 26, 2020. Allergies As of Date: 07/20/2020 (Not on File) Date Reviewed: Never Reviewed Reason for Visit: Received Outside Medical Records [[id number]] Problem List As Of Date: 07/20/2020 (None) Encounter Status:Closed by ARACELIS VALLES on 07/20/20 [facility] CNCOon 07-05-2020 CNCO Letter Text [facility] 06-26-2020 CNPN Telephone (REFPHY) NITZA IBANEZ ([id number]) 1960 M Date Time Provider Department 06/26/20 NO PCP (HISTORICAL) REFPHY During your visit today, we recorded the following information about you: Aj Saez 06/26/2020 12:18 PM Signed Patient: Nitza Ibanez Date of : 1960 Patient phone number: [phone] Referring Provider for the encounter: Nehemiah Jimenez Requesting Provider: Someone that specializes in Valve Disease Reason for requesting visit (RFV/signs and symptoms/diagnosis): Bradycardia, tachycardia Person calling: self Return call to: self Medical Records/Insurance Card scanned into [employer]: Yes Comments: Valve Replacement X2 Allergies As of Date: 06/26/2020 (Not on File) Date Reviewed: Never Reviewed Reason for Visit: External Referrals/resources [909] Problem List As Of Date: 06/26/2020 (None) Encounter Status:Closed by AJ SAEZ on 06/26/20 Normal [facility] Facesheeton 10-27-2019 Facesheet [id number] 90 [id number] 0CD:127 Normal [facility] Provider Letter FTMCon 10-25 Provider Letter FT Nehemiah Jimenez [address] [place] [address] Re: NITZA IBANEZ Date of : 1960 Thank your for your referral of Nitza Ibanez who was seen on consultation on 10/25/2019 for epigastric pain and cholelithiasis. I have enclosed my consultation notes for your review. Sincerely, Kevin Martinez MD General Surgery Normal [facility] Ambulatory Clinical Summaryo n 10-25-2019 Ambulatory Clinical Summary {[id number] 1-d2}CD:[id number] Normal [facility] General Surgery Office/Clini c Noteon 10-25-2019 General Surgery Office/Clinic Note Chief Complaint referral for cholelithiasis HPI Staff 59 year old male presents on consultation from Dr. Jimenez for cholelithiasis. Complains of intermittent abdominal pain for several years. Denies nausea or vomiting. [place] foods do make symptoms worse. Denies diarrhea. RUQ US completed 09/27/19 reported severe cholelithiasis, htn, pulmonary htn, Marfan's syndrome; reports intermittent upper abdominal pain, seen in [facility] approximately 1 month ago, had epigastric burning pain, constant, radiating to chest; US revealed cholelithiasis, no acute inflammation, normal ducts; transferred to [place] for cardiac cath, reportedly ok, was to see surgeon at [facility] regarding gallbladder, but never set up [...] risk for surgical intervention; recommend evaluation at [facility] in [place] for their recommendations; patient would likely have more bleeding issues if developed acute cholecystitis due to anticoagulation, so may benefit from a controlled, elective operation. patient will f/u with surgeon he was given in [place]; call with problems/questions.see 2. Cholelithiasis (K80.20: Calculus of gallbladder without cholecystitis without obstruction) see # 1 3. GERD (gastroesophageal reflux disease) (K21.9: Gastro-esophageal reflux disease without esophagitis) see # 1 4. Chronic anticoagulation (Z79.01: long-term (current) use of anticoagulants) see # 1 [...] cancer of bone: Father and Brother. Normal [facility] Comment on above: Result Comment: Elec tronically Signed By: JAON WOOD, Kevin Drake\Date and Time Signed: 10/25/19 16:58 EDT Physician Referralon 020 Physician Referral [id number] 0CD:127 Normal [facility] Physician Referralon 020 Physician Referral [id number] CD:127 Normal [facility] RAD - Ultrasound Reporton RAD - Ultrasound Report [id number] 0CD:127 Normal [facility] Complete Blood Count Auto Di ffon 05-28-2018 Basophils #/vol (Bld) 0.0 10*3/uL Normal 0.0-0.2 [facility] Comment on above: Order Comment: Comme nt send tubes to 210 Result Comment: PERF ORMED BY: [place] [address] PATHOLOGIST DOCKETING SPECIALIST LESLYE GONZALEZ M.D. Performed By: #### C BC #### [facility] [address] [place] [address] Basophils/100 WBC (Bld) 0.7 % Normal . [facility] Comment on above: Order Comment: Comme nt send tubes to 210 Performed By: #### C BC #### [facility] [address] [place] [address] Eosinophils #/vol (Bld) 0.3 10*3/uL Normal 0.0-0.45 [facility] Comment on above: Order Comment: Comme nt send tubes to 210 Performed By: #### C BC #### [facility] [address] [place] [address] Eosinophils/100 WBC (Bld) 6.0 % Normal . [facility] Comment on above: Order Comment: Comme nt send tubes to 210 Performed By: #### C BC #### [facility] [address] [place] [address] Erythrocyte distribution width Ratio (RBC) 14.1 % Normal 12.0-14.8 [facility] Comment on above: Order Comment: Comme nt send tubes to 210 Performed By: #### C BC #### [facility] [address] [place] [address] Hematocrit Volume Fraction (Bld) 44.5 % Normal 38.8-50.0 [facility] Comment on above: Order Comment: Comme nt send tubes to 210 Performed By: #### C BC #### [address] Hemoglobin mass conc (Bld) 15.1 g/dL Normal 13.0-17.0 [facility] Comment on above: Order Comment: Comme nt send tubes to 210 Performed By: #### C BC #### [address] Lymphocytes #/vol (Bld) 0.7 10*3/uL Low 1.00-4.8 [facility] Comment on above: Order Comment: Comme nt send tubes to 210 Performed By: #### C BC #### [address] Lymphocytes/100 WBC (Bld) 11.9 % Normal . [facility] Comment on above: Order Comment: Comme nt send tubes to 210 Performed By: #### C BC #### [address] MCH Entitic mass (RBC) 33.9 g/dL Normal 32.5-35.6 [facility] Comment on above: Order Comment: Comme nt send tubes to 210 Performed By: #### C BC #### [address] MCH Entitic mass (RBC) 28.8 pg Normal 27.5-35.2 [facility] Comment on above: Order Comment: Comme nt send tubes to 210 Performed By: #### C BC #### [address] MCV Entitic volume (RBC) 85.0 fL Normal 83.5-101 [facility] Comment on above: Order Comment: Comme nt send tubes to 210 Performed By: #### C BC #### [address] Monocytes #/vol (Bld) 0.7 10*3/uL Normal 0.0-0.8 [facility] Comment on above: Order Comment: Comme nt send tubes to 210 Performed By: #### C BC #### [facility] [address] Monocytes/100 WBC (Bld) 11.8 % Normal . [facility] Comment on above: Order Comment: Comme nt send tubes to 210 Performed By: #### C BC #### [facility] [address] Neutrophils #/vol (Bld) 3.9 10*3/uL Normal 1.8-7.7 [facility] Comment on above: Order Comment: Comme nt send tubes to 210 Performed By: #### C BC #### [facility] [address] [place] [address] Neutrophils/100 WBC (Bld) 69.6 % Normal . [facility] Comment on above: Order Comment: Comme nt send tubes to 210 Performed By: #### C BC #### [address] Nucleated RBC/100 WBC Ratio (Bld) 0.0 % Normal 0-0.5 [facility] Comment on above: Order Comment: Comme nt send tubes to 210 Performed By: #### C BC #### [address] Platelet mean volume Entitic volume (Bld) 7.4 fL Normal 6.6-10.1 [facility] Comment on above: Order Comment: Comme nt send tubes to 210 Performed By: #### C BC #### [facility] [address] [place] [address] [place] Platelets #/vol (Bld) 237 10*3/uL Normal 150-450 [facility] Comment on above: Order Comment: Comme nt send tubes to 210 Performed By: #### C BC #### [facility] [address] [place] [address] [place] RBC #/vol (Bld) 5.24 10*6/uL Normal 3.90-5.60 [facility] Comment on above: Order Comment: Comme nt send tubes to 210 Performed By: #### C BC #### [facility] [address] [place] [address] [place] WBC #/vol (Bld) 5.6 10*3/uL Normal 4.1-10.5 [facility] Comment on above: Order Comment: Javon alejo send tubes to 210 Performed By: #### C BC #### [facility] [address] [place] [address] [facility] James 05-28-2018 L -- ---- Specimen: [id number] Received: 05/28/18 Status: CAIO Scott Num: [id number] Spec Type: Surgical Subm Dr: Jim Jules Jr, DO Tissues: A Colon - Polyp (SIGMOID POLYP) Procedures: HE Stain/2, Gross/Micro L4 ---- Patient Age/Sex Location Account Attending Physician ---- Nitza Ibanez/M [id number] Jim Jules Jr, ---- SPEC NUM: RECD: 05/28/18 STATUS: CAIO SCOTT NUM: [id number] MARITO: 05/28/18 [facility] DR: Jim Jules Jr, DO ENTERED: 05/28/[address] [facility] [address]: SPEC TYPE: Surgical DEPT: S ORDERED: [...] microscopic findings support the above pathologic diagnosis. [address] A. - - SIGMOID POLYP ---- ---- Specimen: Received: 05/28/18 Status: CAIO Sonia Num: [id number] Spec Type: Surgical Subm Dr: Jim Jules Jr, DO Tissues: A Colon - Polyp (SIGMOID POLYP) Procedures: HE Stain/2, Gross/Micro L4 ---- Patient: Nitza Ibanez [id number] (Continued) ---- Signed (signature on file) Leslye Gonzalez MD 05/31/18 1553 Normal [facility] Partial Thromboplastin Timeo n 05-28-2018 aPTT Coag time (Bld) 40.4 s High 23.0-35.0 [facility] Comment on above: Order Comment: Javon alejo send tubes to 210 Result Comment: PERF ORMED BY: [facility] [address] [place] [address] PATHOLOGIST DOCKETING SPECIALIST LESLYE GONZALEZ M.D. Performed By: #### P T, PTT #### [facility] [address] Prothrombin Time INRon 05-28 INR Coag RelTime (PPP) 1.4 {INR} Normal [facility] Comment on above: Order Comment: [...] Performed By: #### P T, PTT #### [facility] [address] [place] [id number] [facility] Prothrombin time (PT) Coag time (PPP) 16.4 s High 9.0-12.9 [facility] Comment on above: Order Comment: Comme nt send tubes to 210 Performed By: #### P T, PTT #### [facility] [address] [id number] [facility] Encounters Encounter Date Encounter Type Care Provider Facility Start: 11-18-2023 ambulatory JUAN CROFT [facility] Start: 10-21-2023 End: 10-21-2023 ambulatory MACARENA GARCIA Not Available Start: 10-20-2023 ambulatory [facility] Start: 09-29-2023 End: 09-30-2023 ambulatory [facility] Start: 08-11-2023 ambulatory [facility] Start: 06-22-2023 End: 06-22-2023 ambulatory [facility] Start: 06-02-2023 End: 06-02-2023 ambulatory [facility] Start: 04-15-2023 End: 04-15-[address] [facility] Start: 11-05-2022 Refill Jarrod Amezcua Work Phone: Cardiology Comment on above: Refill Request Start: 12-18-2021 Encounter for genera l adult medical examination without abnormal findings DR NEHEMIAH JIMENEZ [facility] Start: 12-14-2021 End: 12-15-[address] NEHEMIAH [...] Comment on above: Performed By: #### P [facility] #### [facility] [address] [address] [address] Pérez Mg Plan of Treatment Date Care Activity Detail Author Start: 10-17-2022 Influenza vaccination Influenza Vacc ine (#1) [facility] Start: 02-16-2022 Depression Assessment Depression Ass essment [facility] Start: 10-17-2021 Influenza vaccination INFLUENZA (#1) [facility] Start: 06-18-2020 COVID-19 VACCINE (2 - Booster for Rodwy series) COVID-19 VACCINE (2 - Booster for Rowdy series) [facility] Start: 2014 PROSTATE CANCER SCRE ENING DISCUSSION PROSTATE CANCER SCREENING DISCUSSION [facility] Start: 2009 SHINGRIX VACCINE (1 of 2) SHINGRIX V ACCINE (1 of 2) [facility] Start: 2004 COLOGUARD (FIT-DNA) COLOGUARD (FIT-D NA) [facility] Start: 2004 Colonoscopy COLONOSCOPY [facility] Start: 2004 COLORECTAL CANCER SCREENING COLORECTAL CANCER SCREENING [facility] Start: [address] COLONOGRAPHY [facility] Start: 2004 DIABETES SCREEN DIABETES SCREEN [facility] Start: 2004 Diabetes Screening Diabetes Screenin g [facility] Start: 2004 FECAL OCCULT BLOOD FECAL OCCULT BLOO D [facility] Start: 2004 SIGMOIDOSCOPY SIGMOIDOSCOPY [facility] Start: 1994 Lipid 1996 panel - S brandon or Plasma Lipid Screening [facility] Start: 1994 LIPID SCREEN LIPID SCREEN [facility] Start: 1978 Urine microalbumin profile [facility] Start: 1977 ANNUAL PCP TEAM MARKETING ADMIN ALAN DISEASE VISIT ANNUAL PCP TEAM CHRONIC DISEASE VISIT [facility] Start: 1977 BP CONTROLLED (<130/80) BP CONTROLLE D (<130/80) [facility] Start: 1977 HEPATITIS C SCREENING HEPATITIS C SC REENING [facility] Start: 1977 HIV SCREENING HIV SCREENING [facility] Start: 1971 Adult depression scr eening assessment DEPRESSION SCREENING [facility] Immunizations Immunization Date Immunization Notes Care Provider Alison franco 12-28-2019 influenza virus vacc ine, unspecified formulation Jarrod Luna MD Work Phone: [facility] Payers Date Payer Category Payer Unknown [id number] 2023 Unknown [id number] 2020 Unknown [employer] ACCE SS PPO [id number] 2020-Present [phone] [address] [place] [address] PPO [id number] 2013 Unknown [facility] HMO [id number] 2013-Present HMO [id number] 1959 Unknown [id number] 1959 Unknown [id number] 1959 Unknown [id number] 1959 Self-pay 1960 Unknown [id number] Social History Date Type Detail Facility [facility] ever smoked [facility] Start: 1960 Sex Assigned At Not on file [facility] Start: 07-26-2020 [facility] Never smoked tobacco [facility] Work Phone: Start: 07-26-2020 Tobacco use and exposure Smokeless tobacco non-user [facility] Work Phone: Start: 09-26-2020 Alcohol intake Lifetime non-d jose e (finding) [facility] Start: 07-26-2020 History SDOH Alcohol Frequency 1 [facility] Start: 07-26-2020 End: 09-26-2020 History of Social function [facility] Start: 07-26-2020 End: 09-26-2020 Tobacco use panel [facility] National Score (1-10 0), lower number is lower risk Not on file [facility] Clinical Notes 06-26-2020 to 09-29-2023 Telephone Encounter - Mary Fowler - 11/05/2022 9:55 AM EDTTelephone Encounter - Aracelis Raoul - 09/25/2021 7:16 AM EDTTelephone Encounter - Aj Saez - 06/26/2020 12:16 PM EDT Note Date & Type Note Facility 09-29-2023 Note [facility] Consult Note Reason for [...] At one point was being seeing by [facility] EP for PPM but no PPM [...] 125, triglycerides 162, hemoglobin A1c 5.4 Per [facility] cardiology 09/2020 HISTORY OF PRESENT ILLNESS: [...] on file Intimate Partner Violence: Unknown (04/10/2023) [place] Safety [place] Fear of Current or [...] of Systems Cardiovascular (more content not included)... [facility] 06-22-2023 Note LOOP IMPLANT PROCEDU RE [...] the sternum on the left using the [employer] tool. The loop recorder was then injected [...] the incision. Matt Willis MD Cardiac Electrophysiology. [facility] 06-02-2023 Note [place] [facility] Consult Note Reason for visit: AF, [...] At one point was being seeing by [facility] EP for PPM but no PPM [...] 125, triglycerides 162, hemoglobin A1c 5.4 Per [facility] cardiology 09/2020 HISTORY OF PRESENT ILLNESS: [...] on file Intimate Partner Violence: Unknown (04/10/2023) [place] Safety [place] Fear of Current or [...] for irregular he (more content not included)... [facility] 04-15-2023 Note [facility] Consult Note [...] At one point was being seeing by [facility] EP for PPM but no PPM [...] 125, triglycerides 162, hemoglobin A1c 5.4 Per [facility] cardiology 09/2020 HISTORY OF PRESENT ILLNESS: [...] on file Intimate Partner Violence: Unknown (04/10/2023) [place] Safety [place] Fear of Current or [...] by mouth every (more content not included)... [facility] 11-05-2022 Miscellaneous Notes Call from patient requesting refill. Requested Prescriptions Pending Prescriptions Disp Refills losartan (COZAAR) 50 mg tablet [Pharmacy Med Name: LOSARTAN POTASSIUM 50 MG TAB] 180 tablet 3 Sig: take one tablet by mouth twice a day Patient last seen 09/26/20 Mary Fowler documented in this encounter [facility] 09-25-2021 Miscellaneous Notes Electronic request for refill. Requested Prescriptions Pending Prescriptions Disp Refills losartan (COZAAR) 50 mg tablet [Pharmacy Med Name: LOSARTAN POTASSIUM 50 MG TAB] 180 tablet 3 Sig: TAKE 1 TABLET BY MOUTH TWICE A DAY Last office visit in was 07/26/2020 Aracelis Silveira documented in this encounter [facility] 09-26-2020 Note HNO ID: [id number] Author: Nimo Altman MD Service: ? Author Type: Physician Type: Progress Notes Filed: 10/24/2020 11:55 AM Note Text: [facility] [place] [facility] Department of Cardiovascular Medicine SECTION OF CARDIOVASCULAR IMAGING OUTPATIENT VISIT DATE September 26, 2020 OUTPATIENT VISIT TYPE NEW PRIMARY CARE PHYSICIAN: Nehemiah Jimenez MD [address] [place] [address] REFERRING PHYSICIAN: Jarrod Luna [address] [facility] [address] CHIEF COMPLAINT: Valvular heart disease HISTORY OF [...] as directed. As directed by [facility] coumadin clinic. levothyroxine (SYNTHROID) 25 mcg [...] GASTROINTESTINAL: Negative for: (more content not included)... [facility] 07-26-2020 Note HNO ID: [id number] Author: Daksha Weir Service: ? Author Type: ? Type: Progress Notes Filed: 07/26/2020 2:25 PM Note Text: EVENT MONITOR DISPOSABLE PATCH INSTRUCTIONS Patient Name: Nitza Ibanez [facility] Number: [id number] Skin prepped and cleansed with alcohol Patch secured to prepped area Monitor Activated Serial #: [id number] Patient Instructed: 1.) Prescribed order timeframe 2.) Bathing guidelines 3.) Usage of event button and diary documentation 4.) Return of monitor at the end of prescribed order 5.) Call with problems [phone] or [phone]. [phone] Patient expresses a good understanding of instructions Daksha Weir [facility] 07-26-2020 Note Education (CARDMN) NITZA IBANEZ ([id number]) 1960 M Date Time Provider Department 07/26/20 2:00 PM [facility]THM[facility] MONIT[facility] CARDMN Reason for Visit: ZIO PATCH [Other] Progress Notes: Daksha Weir 07/26/2020 2:25 PM Signed EVENT MONITOR DISPOSABLE PATCH INSTRUCTIONS Patient Name: Nitza Ibanez Clinic Number: [id number] Skin prepped and cleansed with alcohol Patch secured to prepped area Monitor Activated Serial #: [id number] Patient Instructed: 1.) Prescribed order timeframe 2.) Bathing guidelines 3.) Usage of event button and diary documentation 4.) Return of monitor at the end of prescribed order 5.) Call with problems [phone] or [phone] ext. [phone] Patient expresses a good understanding of instructions [...] Encounter Status:Closed by DAKSHA GRAVES on 07/26/20 [facility] 07-26-2020 Note HNO ID: [id number] Author: Jarrod Luna MD Service: ? Author [...] fibrillation, sudden deaths. 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 . Daughter A AND W. 2 grandchildren. Lives in [place], [place]. Habits: Tobacco: none. Alcohol: never. Caffeine: [...] sweating-No, Frequent urination (more content not included)... [facility] 07-26-2020 Note HNO ID: [id number] Author: Jarrod Luna MD Service: ? Author [...] aortic valve with sinus bradycardia 54 bpm. [facility] 06-26-2020 Miscellaneous Notes Patient: Nitza Ibanez Date of : 1960 Patient phone number: [phone] Referring Provider for the encounter: Nehemiah Jimenez Requesting Provider: Someone that specializes in Valve Disease Reason for requesting visit (RFV/signs and symptoms/diagnosis): Bradycardia, tachycardia Person calling: self Return call to: self Medical Records/Insurance Card scanned into Epic: Yes Comments: Valve Replacement X2 documented in this encounter [facility] Summary Purpose Family History No Family [...] section and content) DATE CREATED AUTHOR 07/08/2018 [facility] DATE CREATED AUTHOR AUTHOR'S ORGANIZ ATION 10/27/2019 [facility] DATE CREATED AUTHOR AUTHOR'S ORGANIZ ATION 03/19/2021 [facility] DATE CREATED AUTHOR AUTHOR'S ORGANIZ ATION 04/02/2022 [facility] DATE CREATED AUTHOR AUTHOR'S ORGANIZ ATION 10/23/2023 [facility] DATE CREATED AUTHOR AUTHOR'S ORGANIZ ATION 11/20/2023 [facility] Source Comments (unrecognize d section and content) In the event this informatio n is protected by the Federal Confidentiality of Alcohol and Drug Abuse Patient Records regulations: The Federal rules restrict any use of the information to criminally investigate or prosecute any alcohol or drug abuse patient.[facility] the event this information is protected by the Federal Confidentiality of Alcohol and Drug Abuse Patient Records regulations: The Federal rules restrict any use of the information to criminally investigate or prosecute any alcohol or drug abuse patient.[facility] the event this information is protected by the Federal Confidentiality of Alcohol and Drug Abuse Patient Records regulations: The Federal rules restrict any use of the information to criminally investigate or prosecute any alcohol or drug abuse patient.[facility] Reason for Visit (unrecogniz ed section and content) Reason Comments External Referrals/resources Reason Comments Refill Request Care Teams (unrecognized sec tion and content) Family Service Aide Relationship Specialty Start Date End Date Nehemiah Jimenez MD [address] [place] [address] PCP - General Family Practice 06/06/13 Abner Young [address] [address] Referring Cardiology 07/26/20 Nimo Altman MD [address] [place] [address] Primary Staff Physician Cardiology 09/26/20 Family Service Aide Relationship Specialty Start Date End Date Nehemiah Jimenez MD PCP - General Family Medicine 06/06/13 Abner Young [address] [address] Referring Cardiology 07/26/20 Nimo Altman MD [address] [place] [address] Primary Staff Physician Cardiology 09/26/20 FOR RECORDS [...] BE BASED ON THE PRIMARY CLINICAL RECORDS. [employer] [facility]. provides no warranty or guarantee of the accuracy or completeness of information in this document.
== END 2023-12-08 15:33 | disposition home or self-care (01) ==
LOC: WC 15:33
PROVIDERS: PCP Physician Assistant; Visit Provider Physician Assistant
DX: L97.412 Non-pressure chronic ulcer of right heel and midfoot with fat layer exposed (principal)
CPT/HCPCS: 11042

== ENCOUNTER 2023-12-18 13:18 | Outpatient (RCR) | payer BC, SELFPAY | END 2024-01-16 23:59 | disposition home or self-care (01) | LOC: MM 13:18 | PROVIDERS: PCP Physician Assistant; Visit Provider Internal Medicine | DX: Z51.81 Encounter for therapeutic drug level monitoring (principal); Z79.01 Long term (current) use of anticoagulants; I48.91 Unspecified atrial fibrillation ==

== ENCOUNTER 2023-12-30 15:23 | Outpatient (OUT) | payer BC, SELFPAY ==
--- OUTSIDE RECORDS SUMMARY | 2023-12-30 15:46 | XMS_ITS | CCD ---
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 Name Role Phone Nehemiah Jimenez Primary Care Provider [phone] Nehemiah Jimenez Unavailable Nehemiah Jimenez MD Primary Care Provider [phone] Abner Young Unavailable Dianne WOOD, Nimo Garza Unavailable [phone] NEHEMIAH JIMENEZ Attending Unavailable ARTUR, DR CERNA Admitting Unavailable ARTUR, DR CERNA Primary Care Unavailable ARTUR, DR CERNA Consulting Unavailable HOY, DR CERNA Attending Unavailable ARTUR, DR CERNA Admitting Unavailable ARTUR, DR CERNA Primary Care Unavailable Nehemiah Jimenez MD Primary Care Provider [phone] Abner Young Unavailable Dianne WOOD, Nimo Garza Unavailable MACARENA GARCIA Attending Unavailable MATT WILLIS Attending Unavailable MATT WILLIS Attending Unavailable HONORIO EVANS Attending Unavailable JUAN CROFT Referring Unavailable MATT WILLIS Referring Unavailable MATT WILLIS Referring Unavailable MATT WILLIS Referring Unavailable MATT WILLIS Admitting Unavailable MATT WILLIS Attending Unavailable MATT WILLIS Referring Unavailable Medications Current Medications Medication Drug Class(es) [...] mouth daily as directed. As directed by [facility] coumadin clinic. 0 10/21/2018 Active Comment on above: Take 5 mg by mouth d aily as directed. As directed by [facility] coumadin clinic. Problems Active Problems Problem Classification Problem Date Documented Da te Episodic/Chronic Aortic; peripheral; and visceral artery aneurysms (2 sources) Thoracic aortic aneurysm without rupture; Translations: [Thoracic aortic aneurysm, without rupture] Onset: 10-18-2015 09-26-2020 Chronic Cardiac dysrhythmias (6 sources) Atrial fibrillation; Translations: [Unspecified atrial fibrillation] Onset: 09-11-2016 09-26-2020 Chronic Cardiac dysrhythmias (2 sources) Palpitations; Translations: [Palpitations] Onset: 11-18-2023 Episodic Essential hypertension (2 sources) Essential hypertension; [...] Range Facility Office Visiton 09-29-2023 Follow-up visit [id number] Indio Ibanez 1960 M Date Provider Department Center 09/29/2023 MATT STANFORD SAMUEL Riggins Family History Problem Relation Age of Onset Cancer Mother Cancer Father Diabetes Sister Cancer Brother Diabetes Brother Family Status - Relation Status Age at Mother Father Sister Brother Level of Service:85765 UT OFFICE/OUTPATIENT ESTABLISHED LOW MDM 20 MIN Normal [facility] HPon 06-22-2023 [facility] Electrophysiology Consult [...] At one point was being seeing by [facility] EP for PPM but no PPM placed. [...] 125, triglycerides 162, hemoglobin A1c 5.4 Per [facility] cardiology 09/2020 HISTORY OF PRESENT ILLNESS: Mr. [...] included)... Normal [facility] NURSNOTEon 06-22-2023 NURSNOTE RN educated pt on d/ c instructions. RN encouraged pt to voice any questions or concerns. Pt verbalizes no questions or concerns at this time. Pt was wheeled off of unit with all of belongings. [facility] Office Visiton 06-02-2023 Follow-up visit [id number] Indio Ibanez 1960 M Date Provider Department Center 06/02/2023 241-MATT WILLIS Family History Problem Relation Age of Onset Cancer Mother Cancer Father Diabetes Sister Cancer Brother Diabetes Brother Family Status - Relation Status Age at Mother Father Sister Brother Level of Service:78324 UT OFFICE/OUTPATIENT NEW MODERATE MDM 45 MINUTES [facility] 36on 04-17-2023 36 He can restart his toprol XL 100mg once daily only Normal [facility] Office Visiton 04-15-2023 Follow-up visit [id number] Indio Ibanez L 1960 M Date Provider Department Center 04/15/2023 159Portia-HONORIO EVANS Family History Problem Relation Age of Onset Cancer Mother Cancer Father Diabetes Sister Cancer Brother Diabetes Brother Family Status - Relation Status Age at Mother Father Sister Brother Level of Service:17538 UT OFFICE/OUTPATIENT NEW MODERATE MDM 45 MINUTES Reason for Visit and Comments: New Patient [632] - A Fib Normal [facility] CBC AUTO DIFFon 12-14-2021 BASO # 0.0 103/ul Normal 0.0-0.1 [facility] Comment on above: Performed By: #### C BC #### [facility] [address] [address] [address] Pérez Mg Basophils/100 WBC (Bld) 0.6 % Normal 0.2-2.0 [facility] Comment on above: Performed By: #### C BC #### [facility] [address] [place] [address] Dr. Pérez Mg EO # 0.5 103/ul Normal 0.0-0.7 [facility] Comment on above: Performed By: #### C BC #### [facility] [address] [address] [address] Pérez Mg Eosinophils/100 WBC (Bld) 8.6 % Critically high 0.9-7.0 [facility] Comment on above: Performed By: #### C BC #### [facility] [address] [place] [address] Dr. Pérez Mg Erythrocyte distribution width (RBC) [Ratio] 13.2 % Normal 11.0-15.0 [facility] Comment on above: Performed By: #### C BC #### [facility] [address] [place] [address] Dr. Pérez Mg Hematocrit (Bld) [Volume fraction] 43.2 % Normal 42.0-54.0 [facility] Comment on above: Performed By: #### C BC #### [facility] [address] [place] [address] Dr. Pérez Mg Hemoglobin (Bld) [Mass/Vol] 14.6 g/dL Normal 14.0-18.0 [facility] Comment on above: Performed By: #### C BC #### [facility] [address] [place] [address] Dr. Pérez Mg IG # 0.06 10e3/ul Critically high 0.00-0.03 [facility] Comment on above: Performed By: #### C BC #### [facility] [address] [place] [address] Dr. Pérez Mg IG % 1.0 % Critically high 0.0-0.5 [facility] Comment on above: Performed By: #### C BC #### [facility] [address] [place] [address] Dr. Pérez Mg LYMPH # 1.1 103/ul Critically low 1.2-3.8 [facility] Comment on above: Performed By: #### C BC #### [facility] [address] [place] [address] Dr. Pérez Mg Lymphocytes/100 WBC (Bld) 17.5 % Critically low 20.5-60.0 [facility] Comment on above: Performed By: #### C BC #### [facility] [address] [place] [address] Dr. Pérez Mg MANUAL DIFF REQ NO Normal [facility] Comment on above: Performed By: #### C BC #### [facility] [address] [place] [address] Dr. Pérez Mg MCH (RBC) [Entitic mass] 29.0 pg Normal 25.9-34.0 [facility] Comment on above: Performed By: #### C BC #### [facility] [address] [place] [address] Dr. Pérez Mg MCHC (RBC) [Mass/Vol] 33.8 g/dL Normal 29.9-35.2 [facility] Comment on above: Performed By: #### C BC #### [facility] [address] [place] [address] Dr. Pérez Mg MCV (RBC) [Entitic vol] 85.9 fL Normal 80.0-94.0 [facility] Comment on above: Performed By: #### C BC #### [facility] [address] [place] [address] Dr. Pérez Mg MONO # 0.5 103/ul Normal 0.3-0.8 [facility] Comment on above: Performed By: #### C BC #### [facility] [address] [place] [address] Dr. Pérez Mg Monocytes/100 WBC (Bld) 8.3 % Normal 1.7-12.0 [facility] Comment on above: Performed By: #### C BC #### [facility] [address] [place] [address] Dr. Pérez Mg NEUT # 4.0 103/ul Normal 1.4-6.5 [facility] Comment on above: Performed By: #### C BC #### [facility] [address] [place] [address] Dr. Pérez Mg Neutrophils/100 WBC (Bld) 64.0 % Normal 43.0-75.0 [facility] Comment on above: Performed By: #### C BC #### [facility] [address] [place] [address] Dr. Pérez Mg Platelet mean volume (Bld) [Entitic vol] 9.1 fL Critically low 9.5-13.5 [facility] Comment on above: Performed By: #### C BC #### [facility] [address] [place] [address] Dr. Pérez Mg PLT 213 103/ul Normal 150-450 [facility] Comment on above: Performed By: #### C BC #### [facility] [address] [place] [address] Dr. Pérez Mg RBC 5.03 106/ul Normal 4.70-6.10 [facility] Comment on above: Performed By: #### C BC #### [facility] [address] [place] [address] Dr. Pérez Mg WBC 6.3 103/ul Normal 4.0-11.0 [facility] Comment on above: Performed By: #### C BC #### [facility] [address] [place] [address] Dr. Pérez Mg GLYCOHEMOGLOBIN A1Con 2021 ADA RECOMMENDATION SEE BELOW Normal [facility] Comment on above: Result Comment: ADA RECOMMENDED LIMIT 4.0 - 6.0 ADA THERAPEUTIC TARGET < 7.0 ACTION SUGGESTED > 7.0 Performed By: #### A 1C #### [facility] [address] [address] [address] Pérez Mg Glucose [Mass/Vol] 105 mg/dL Normal [facility] Comment on above: Performed By: #### A 1C #### [facility] [address] [address] [address] Pérez Mg HbA1c (Bld) [Mass fraction] 5.3 % Normal 4.5-6.2 [facility] Comment on above: Performed By: #### A 1C #### [facility] [address] [place] [address] Dr. Pérez Mg LIPID PROFILEon 12-14-2021 CHOL-HDL RATIO NORM SEE BELOW Normal [facility] Comment on above: Result Comment: 3.3 - 4.4 LOW RISK 4.4 - 7.1 AVERAGE RISK 7.1 - 11.0 MODERATE RISK >11.0 HIGH RISK Performed By: #### L IPID, CMP #### [facility] [address] [address] [address] Pérez Mg Cholesterol [Mass/Vol] 201 mg/dL Critically high <=200 [facility] Comment on above: Performed By: #### L IPID, CMP #### [facility] [address] [address] [address] Pérez Mg Cholesterol in HDL [Mass/Vol] 41 mg/dL Normal 40-60 [facility] Comment on above: Performed By: #### L IPID, CMP #### [facility] [address] [address] [address] Pérez Mg Cholesterol in LDL [Mass/Vol] 122.8 mg/dL Normal [facility] Comment on above: Performed By: #### L IPID, CMP #### [facility] [address] [address] [address] Pérez Mg Cholesterol.total/Ch olesterol in HDL [Mass ratio] 4.9 {ratio} Normal [facility] Comment on above: Performed By: #### L IPID, CMP #### [facility] [address] [address] [address] Pérez Mg HDL NORMAL > or = 60 mg/dl - LO W CARDIOVASCULAR RISK <40 mg/dl - HIGH CARDIOVASCULAR RISK Normal [facility] Comment on above: Performed By: #### L IPID, CMP #### [facility] [address] [address] [address] Pérez Mg LDL CALC NORMAL SEE BELOW Normal [facility] Comment on above: Result Comment: <100 mg/dl OPTIMAL 100 - 129 mg/dl NEAR OR ABOVE OPTIMAL 130 - 159 mg/dl BORDERLINE HIGH 160 - 189 mg/dl HIGH >190 mg/dl VERY HIGH Performed By: #### L IPID, CMP #### [facility] [address] [place] [address] Dr. Pérez Mg Triglyceride [Mass/Vol] 186 mg/dL Critically high <=150 [facility] Comment on above: Performed By: #### L IPID, CMP #### [facility] [address] [place] [address] Dr. Pérez Mg VLDL CALC 37.2 mg/dL Normal [facility] Comment on above: Performed By: #### L IPID, CMP #### [facility] [address] [place] [address] Dr. Pérez Mg PROF 14(COMP METB)on 022 Albumin [Mass/Vol] 3.9 g/dL Normal 3.4-5.0 [facility] Comment on above: Performed By: #### L IPID, CMP #### [facility] [address] [place] [address] Dr. Pérez Mg Albumin/Globulin [Mass ratio] 1.1 {ratio} Normal [facility] Comment on above: Performed By: #### L IPID, CMP #### [facility] [address] [place] [address] Dr. Pérez Mg ALP [Catalytic activity/Vol] 65 U/L Normal 46-116 [facility] Comment on above: Performed By: #### L IPID, CMP #### [facility] [address] [address] [address] Pérez Mg ALT [Catalytic activity/Vol] 41 U/L Normal 16-63 [facility] Comment on above: Performed By: #### L IPID, CMP #### [facility] [address] [address] [address] Pérez Mg Anion gap [Moles/Vol] 10.3 mmol/L Normal [facility] Comment on above: Performed By: #### L IPID, CMP #### [facility] [address] [address] [address] Pérez Mg AST [Catalytic activity/Vol] 33 U/L Normal 15-37 [facility] Comment on above: Performed By: #### L IPID, CMP #### [facility] [address] [place] [address] Dr. Pérez Mg Bilirubin [Mass/Vol] 0.5 mg/dL Normal 0.2-1.0 [facility] Comment on above: Performed By: #### L IPID, CMP #### [facility] [address] [address] [address] Pérez Mg Calcium [Mass/Vol] 9.0 mg/dL Normal 8.5-10.1 [facility] Comment on above: Performed By: #### L IPID, CMP #### [facility] [address] [address] [address] Pérez Mg Chloride [Moles/Vol] 103 mmol/L Normal 98-107 [facility] Comment on above: Performed By: #### L IPID, CMP #### [facility] [address] [place] [address] Dr. Pérez Mg CO2 [Moles/Vol] 27.7 mmol/L Normal 21.0-32.0 [facility] Comment on above: Performed By: #### L IPID, CMP #### [facility] [address] [address] [address] Pérez Mg Creatinine [Mass/Vol] 0.73 mg/dL Normal 0.70-1.30 [facility] Comment on above: Performed By: #### L IPID, CMP #### [facility] [address] [address] [address] Pérez Mg EGFR-AF [place] >60 Normal >=60 [facility] Comment on above: Performed By: #### L IPID, CMP #### [facility] [address] [address] [address] Pérez Mg EGFR-NON AF [place] >60 Normal >=60 [facility] Comment on above: Performed By: #### L IPID, CMP #### [facility] [address] [address] [address] Pérez Mg Globulin (S) [Mass/Vol] 3.6 g/dL Normal [facility] Comment on above: Performed By: #### L IPID, CMP #### [facility] [address] [address] [address] Pérez Mg Glucose [Mass/Vol] 110 mg/dL Critically high 74-106 [facility] Comment on above: Performed By: #### L IPID, CMP #### [facility] [address] [address] [address] Pérez Mg Potassium [Moles/Vol] 4.0 mmol/L Normal 3.5-5.1 [facility] Comment on above: Performed By: #### L IPID, CMP #### [facility] [address] [address] [address] Pérez Mg Protein [Mass/Vol] 7.5 g/dL Normal 6.4-8.2 [facility] Comment on above: Performed By: #### L IPID, CMP #### [facility] [address] [address] [address] Pérez Mg Sodium [Moles/Vol] 137 mmol/L Normal 136-145 [facility] Comment on above: Performed By: #### L IPID, CMP #### [facility] [address] [address] [address] Pérez Mg Urea nitrogen [Mass/Vol] 16.0 mg/dL Normal 7.0-18.0 [facility] Comment on above: Performed By: #### L IPID, CMP #### [facility] [address] [address] [address] Pérez Mg Urea nitrogen/Creatinine [Mass ratio] 21.9 mg/mg Normal [facility] Comment on above: Performed By: #### L IPID, CMP #### [facility] [address] [address] [address] Pérez Dee 01-28-2021 CNPN Telephone (CARDMN) NITZA IBANEZ ([id number]) 1960 M Date Time Provider Department 01/28/21 JARROD LUNA CARDMN During your visit today, we recorded the following information about you: Aracelis Raoul 01/28/2021 2:35 PM Signed Outside medical records uploaded to [employer]: CT/OT - CTA chest with contrast - 11/07/2020 Allergies As of Date: 01/28/2021 (No Known Allergies) Date Reviewed: 09/26/2020 Reviewed by: Macarena Payton MD - Fully Assessed Reason for Visit: Received Outside Medical Records [1672] Cmt: CT/OT - CTA Chest with Contrast [...] mouth daily as directed. As directed by [facility] coumadin clinic. - levothyroxine (SYNTHROID) 25 [...] Encounter Status:Closed by ANA FRAZIER on 01/28/21 [facility] ELIAZAROVon 09-26-2020 CNSARA Office Visit (CITLALLI ) NITZA IBANEZ ([id number]) 1960 M Date Time Provider Department 09/26/20 12:30 PM NIMO ALTMAN During your visit today, we recorded the following information about you: Pulse Respiration Blood pressure Weight 63/minute 12/minute 176/72 69.4 kg Height 1.778 m Nimo Altman MD 10/24/2020 11:55 AM Addendum [facility] [place] [facility] Department of Cardiovascular Medicine SECTION OF CARDIOVASCULAR IMAGING OUTPATIENT VISIT DATE September 26, 2020 OUTPATIENT VISIT TYPE NEW PRIMARY CARE PHYSICIAN: Nehemiah Jimenez MD [address] [place] [address] REFERRING PHYSICIAN: Jarrod Luna [address] [place] [id number] CHIEF COMPLAINT: Valvular heart disease HISTORY OF [...] mouth daily as directed. As directed by [facility] coumadin clinic. levothyroxine (SYNTHROID) 25 mcg [...] Headache, Impai (more content not included)... Normal [facility] CNOVon 07-26-2020 CNOV Office Visit (CARDMN ) NITZA IBANEZ ([id number]) 1960 M Date Time Provider Department 07/26/20 [...] fibrillation, sudden deaths. 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 . Daughter A AND W. 2 grandchildren. Lives in [place], [place]. Habits: Tobacco: none. Alcohol: never. Caffeine: [...] Weakness, paralysis-No, Numbness-No, (more content not included)... [facility] 07-20-2020 CNPN Telephone (CARDMN) NITZA IBANEZ ([id number]) 1960 M Date Time Provider Department 07/20/20 JARROD LUNA During your visit today, we recorded the following information about you: Aracelis Duvall 07/20/2020 4:14 PM Signed Outside medical records scanned into [employer]. Patient scheduled to see Dr. Jarrod Luna on July 26, 2020. Allergies As of Date: 07/20/2020 (Not on File) Date Reviewed: Never Reviewed Reason for Visit: Received Outside Medical Records [0362] Problem List As Of Date: 07/20/2020 (None) Encounter Status:Closed by ARACELIS VALLES on 07/20/20 [facility] CNCOon 07-05-2020 CNCO Letter Text [facility] 06-26-2020 CNPN Telephone (REFPHY) NITZA IBANEZ ([id number]) 1960 M Date Time Provider Department 06/26/20 NO PCP (HISTORICAL) REFPHY During your visit today, we recorded the following information about you: Aj Saez 06/26/2020 12:18 PM Signed Patient: Nitza Ibanez Date of : 1960 Patient phone number: [phone] Referring Provider for the encounter: Nehemiah Jimenez Requesting Provider: Someone that specializes in Valve Disease Reason for requesting visit (RFV/signs and symptoms/diagnosis): Bradycardia, tachycardia Person calling: self Return call to: self Medical Records/Insurance Card scanned into [employer]: Yes Comments: Valve Replacement X2 Allergies As of Date: 06/26/2020 (Not on File) Date Reviewed: Never Reviewed Reason for Visit: External Referrals/resources [909] Problem List As Of Date: 06/26/2020 (None) Encounter Status:Closed by AJ SAEZ on 06/26/20 Normal [facility] Facesheeton 10-27-2019 Facesheet [id number] 0CD:127 Normal [facility] Provider Letter FTon 10-25 Provider Letter [facility] Nehemiah Jimenez [address] [place] [address] Re: NITZA IBANEZ Date of : 1960 Thank your for your referral of Nitza Ibanez who was seen on consultation on 10/25/2019 for epigastric pain and cholelithiasis. I have enclosed my consultation notes for your review. Sincerely, Kevin Martinez MD General Surgery [facility] Ambulatory Clinical Summaryo n 10-25-2019 Ambulatory Clinical Summary {[id number]}CD:[id number] [facility] General Surgery Office/Clini c Noteon 10-25-2019 General Surgery Office/Clinic Note Chief Complaint referral for cholelithiasis HPI Staff 59 year old male presents on consultation from Dr. Jimenez for cholelithiasis. Complains of intermittent abdominal pain for several years. Denies nausea or vomiting. Leoti foods do make symptoms worse. Denies diarrhea. RUQ US completed 09/27/19 reported severe cholelithiasis, htn, pulmonary htn, Marfan's syndrome; reports intermittent upper abdominal pain, seen in [place] ED approximately 1 month ago, had epigastric burning pain, constant, radiating to chest; US revealed cholelithiasis, no acute inflammation, normal ducts; transferred to [place] for cardiac cath, reportedly ok, was to see surgeon at [facility] regarding gallbladder, but never set [...] risk for surgical intervention; recommend evaluation at [facility] in [place] for their recommendations; patient would likely have more bleeding issues if developed acute cholecystitis due to anticoagulation, so may benefit from a controlled, elective operation. patient will f/u with surgeon he was given in [place]; call with problems/questions.see 2. Cholelithiasis (K80.20: Calculus of gallbladder without cholecystitis without obstruction) see # 1 3. GERD (gastroesophageal reflux disease) (K21.9: Gastro-esophageal reflux disease without esophagitis) see # 1 4. Chronic anticoagulation (Z79.01: scale balancer (current) use of anticoagulants) see # 1 [...] cancer of bone: Father and Brother. Normal [facility] Comment on above: Result Comment: Elec tronically Signed By: JOAN WOOD, Kevin Drake\Date and Time Signed: 10/25/19 16:58 EDT Physician Referralon 020 Physician Referral [id number] 0CD:127 Normal [facility] Physician Referralon 020 Physician Referral [id number] CD:127 Normal [facility] RAD - Ultrasound Reporton RAD - Ultrasound Report [id number] 0CD:127 Normal [facility] Complete Blood Count Auto Di ffon 05-28-2018 Basophils #/vol (Bld) 0.0 10*3/uL Normal 0.0-0.2 [facility] Comment on above: Order Comment: Comme nt send tubes to 210 Result Comment: PERF ORMED BY: [place] [address] PATHOLOGIST ARTIFICIAL INSEMINATOR LESLYE GONZALEZ M.D. Performed By: #### C BC #### [facility] [address] [place] [address] Basophils/100 WBC (Bld) 0.7 % Normal . [facility] Comment on above: Order Comment: Comme nt send tubes to 210 Performed By: #### C BC #### [facility] [address] [place] [address] Eosinophils #/vol (Bld) 0.3 10*3/uL Normal 0.0-0.45 [facility] Comment on above: Order Comment: Comme nt send tubes to 210 Performed By: #### C BC #### [facility] [address] [place] [address] Eosinophils/100 WBC (Bld) 6.0 % Normal . [facility] Comment on above: Order Comment: Comme nt send tubes to 210 Performed By: #### C BC #### [facility] [address] [place] [address] Erythrocyte distribution width Ratio (RBC) 14.1 % Normal 12.0-14.8 [facility] Comment on above: Order Comment: Comme nt send tubes to 210 Performed By: #### C BC #### [facility] [address] [place] [address] Hematocrit Volume Fraction (Bld) 44.5 % Normal 38.8-50.0 [facility] Comment on above: Order Comment: Comme nt send tubes to 210 Performed By: #### C BC #### [address] Hemoglobin mass conc (Bld) 15.1 g/dL Normal 13.0-17.0 [facility] Comment on above: Order Comment: Comme nt send tubes to 210 Performed By: #### C BC #### [address] Lymphocytes #/vol (Bld) 0.7 10*3/uL Low 1.00-4.8 [facility] Comment on above: Order Comment: Comme nt send tubes to 210 Performed By: #### C BC #### [address] Lymphocytes/100 WBC (Bld) 11.9 % Normal . [facility] Comment on above: Order Comment: Comme nt send tubes to 210 Performed By: #### C BC #### [address] MCH Entitic mass (RBC) 33.9 g/dL Normal 32.5-35.6 [facility] Comment on above: Order Comment: Comme nt send tubes to 210 Performed By: #### C BC #### [address] MCH Entitic mass (RBC) 28.8 pg Normal 27.5-35.2 [facility] Comment on above: Order Comment: Comme nt send tubes to 210 Performed By: #### C BC #### [address] MCV Entitic volume (RBC) 85.0 fL Normal 83.5-101 [facility] Comment on above: Order Comment: Comme nt send tubes to 210 Performed By: #### C BC #### [address] Monocytes #/vol (Bld) 0.7 10*3/uL Normal 0.0-0.8 [facility] Comment on above: Order Comment: Comme nt send tubes to 210 Performed By: #### C BC #### [address] Monocytes/100 WBC (Bld) 11.8 % Normal . [facility] Comment on above: Order Comment: Comme nt send tubes to 210 Performed By: #### C BC #### [facility] [address] [place] [address] Neutrophils #/vol (Bld) 3.9 10*3/uL Normal 1.8-7.7 [facility] Comment on above: Order Comment: Comme nt send tubes to 210 Performed By: #### C BC #### [address] Neutrophils/100 WBC (Bld) 69.6 % Normal . [facility] Comment on above: Order Comment: Comme nt send tubes to 210 Performed By: #### C BC #### [address] Nucleated RBC/100 WBC Ratio (Bld) 0.0 % Normal 0-0.5 [facility] Comment on above: Order Comment: Comme nt send tubes to 210 Performed By: #### C BC #### [address] Platelet mean volume Entitic volume (Bld) 7.4 fL Normal 6.6-10.1 [facility] Comment on above: Order Comment: Comme nt send tubes to 210 Performed By: #### C BC #### [facility] [address] [place] [address] Platelets #/vol (Bld) 237 10*3/uL Normal 150-450 [facility] Comment on above: Order Comment: Comme nt send tubes to 210 Performed By: #### C BC #### [address] RBC #/vol (Bld) 5.24 10*6/uL Normal 3.90-5.60 [facility] Comment on above: Order Comment: Comme nt send tubes to 210 Performed By: #### C BC #### [address] [place] [address] [facility] WBC #/vol (Bld) 5.6 10*3/uL Normal 4.1-10.5 [facility] Comment on above: Order Comment: Javon alejo send tubes to 210 Performed By: #### C BC #### [facility] [address] [id number] [facility] James 05-28-2018 L -- ---- Specimen: [id number] Received: 05/28/18 Status: CAIO Scott Num: [id number] Spec Type: Surgical Subm Dr: Jim Jules Jr, DO Tissues: A Colon - Polyp (SIGMOID POLYP) Procedures: HE Stain/2, Gross/Micro L4 ---- Patient Age/Sex Location Account Attending Physician ---- Nitza Ibanez/M [id number] Jim Jules Jr, ---- SPEC NUM: RECD: 05/28/18 STATUS: CAIO HOROWITZPetr NUM: [id number] MARITO: 05/28/[address] [facility] [address]: Jim Jules Jr, DO ENTERED: 05/28/18 [facility] DR: SPEC TYPE: Surgical DEPT: [...] microscopic findings support the above pathologic diagnosis. [id number] A. - - SIGMOID POLYP ---- ---- Specimen: Received: 05/28/18 Status: CAIO Scott Num: [id number] Spec Type: Surgical Subm Dr: Jim L Hykes Jr, DO Tissues: A Colon - Polyp (SIGMOID POLYP) Procedures: HE Stain/2, Gross/Micro L4 ---- Patient: Nitza Ibanez [id number] (Continued) ---- Signed (signature on file) Leslye Gonzalez MD 05/31/18 1553 Normal [facility] Partial Thromboplastin Timeo n 05-28-2018 aPTT Coag time (Bld) 40.4 s High 23.0-35.0 [facility] Comment on above: Order Comment: Javon nt send tubes to 210 Result Comment: PERF ORMED BY: [place] [address] PATHOLOGIST ARTIFICIAL INSEMINATOR LESLYE GONZALEZ M.D. Performed By: #### P T, PTT #### [facility] [address] Prothrombin Time INRon 05-28 INR Coag RelTime (PPP) 1.4 {INR} Normal [facility] Comment on above: Order Comment: Comme [...] Performed By: #### P T, PTT #### [facility] [address] [id number] [facility] Prothrombin time (PT) Coag time (PPP) 16.4 s High 9.0-12.9 [facility] Comment on above: Order Comment: Comme nt send tubes to 210 Performed By: #### P T, PTT #### [facility] [address] [id number] [facility] Encounters Encounter Date Encounter Type Care Provider Facility Start: 12-28-2023 ambulatory [facility] Start: 12-21-2023 ambulatory [facility] Start: 11-18-2023 ambulatory JUAN CROFT [facility] Start: 10-21-2023 End: 10-21-2023 ambulatory MACARENA GARCIA Not Available Start: 10-20-2023 ambulatory [facility] Start: 09-29-2023 End: 09-30-2023 ambulatory [facility] Start: 08-11-2023 ambulatory [facility] Start: 06-22-2023 End: 06-22-2023 ambulatory [facility] Start: 06-02-2023 End: 06-02-2023 ambulatory [facility] Start: 04-15-2023 End: [facility]15-[facility]: 11-05-2022 Refill Jarrod Amezcua Work Phone: Cardiology Comment on above: Refill Request Start: 12-18-2021 Encounter for genera l adult medical examination without abnormal findings DR NEHEMIAH JIMENEZ [facility] Start: 12-14-2021 End: 12-15-[address] NEHEMIAH JIMENEZ Facility:[facility]1 Start: 12-14-2021 End: 12-15-2021 Encounter for general adult medical examination without abnormal findings DR NEHEMIAH JIMENEZ Facility:[facility] Start: 09-24-2021 Refill Jarrod Amezcua Work Phone: Cardiology Comment on above: Refill Request Start: 07-18-[address] NEHEMIAH JIMENEZ Facility : Start: 06-26-2020 End: 06-26-2020 Telephone encounter No Pcp (Historical) Referring Physician Comment on above: External Referrals/r esources Procedures Date Procedure Procedure Detail Performing Clinician Start: 12-14-[address] OLEKSANDR JIMENEZ Comment on above: Performed By: #### P [facility] #### [facility] [address] [address] [address] Pérez Mg Plan of Treatment Date Care Activity Detail Author Start: 10-17-2022 Influenza vaccination Influenza Vacc ine (#1) [facility] Start: 02-16-2022 Depression Assessment Depression Ass essment [facility] Start: 10-17-2021 Influenza vaccination INFLUENZA (#1) [facility] Start: 06-18-2020 COVID-19 VACCINE (2 - Booster for Rowdy series) COVID-19 VACCINE (2 - Booster for Rowdy series) [facility] Start: 2014 PROSTATE CANCER SCRE ENING DISCUSSION PROSTATE CANCER SCREENING DISCUSSION [facility] Start: 2009 SHINGRIX VACCINE (1 of 2) SHINGRIX V ACCINE (1 of 2) [facility] Start: 2004 COLOGUARD (FIT-DNA) COLOGUARD (FIT-D NA) [facility] Start: 2004 Colonoscopy COLONOSCOPY [facility] Start: 2004 COLORECTAL CANCER SCREENING COLORECTAL CANCER SCREENING [facility] Start: [address] COLONOGRAPHY [facility] Start: 2004 DIABETES SCREEN DIABETES SCREEN [facility] Start: 2004 Diabetes Screening Diabetes Screenin g [facility] Start: 2004 FECAL OCCULT BLOOD FECAL OCCULT BLOO D [facility] Start: 2004 [facility] Start: 1994 Lipid 1996 panel - S brandon or Plasma Lipid Screening [facility] Start: 1994 LIPID SCREEN LIPID SCREEN [facility] Start: 1978 Urine microalbumin profile [facility] Start: 1977 ANNUAL PCP TEAM SPARE PERSON ALAN DISEASE VISIT ANNUAL PCP TEAM CHRONIC DISEASE VISIT [facility] Start: 1977 BP CONTROLLED (<130/80) BP CONTROLLE D (<130/80) [facility] Start: 1977 HEPATITIS C SCREENING HEPATITIS C SC SKYLER [facility] Start: 1977 HIV SCREENING HIV SCREENING [facility] Start: 1971 Adult depression scr eening assessment DEPRESSION SCREENING [facility] Immunizations Immunization Date Immunization Notes Care Provider Fa cility 12-28-2019 influenza virus vacc ine, unspecified formulation Jarrod Luna MD Work Phone: [facility] Payers Date Payer Category Payer Unknown [id number] 2023 Unknown [id number] 2020 Unknown [employer] PPO [id number] 2020-Present [phone] [address] [place] [address] PPO [id number] 2013 [id number] 2013-Present O [id number] 1959 Unknown [id number] 3 1959 Unknown [id number] 1959 Unknown [id number] 1960 Self-pay 1959 Unknown [id number] Social History Date Type Detail Facility Tobacco smoking stat [facility] Unknown if ever smoked [facility] Start: 1960 Sex Assigned At Not on file [facility] Start: 07-26-2020 [facility] Work Phone: Start: 07-26-2020 Tobacco use and exposure Smokeless tobacco non-user [facility] Work Phone: Start: 09-26-2020 Alcohol intake Lifetime non-d jose e (finding) [facility] Start: 07-26-2020 History SDOH Alcohol Frequency 1 [facility] Start: 07-26-2020 End: 09-26-2020 History of Social function [facility] Start: 07-26-2020 End: 09-26-2020 Tobacco use panel [facility] National Score (1-10 0), lower number is lower risk Not on file [facility] Clinical Notes 06-26-2020 to 09-29-2023 Telephone Encounter - Malcolm Mary - 11/05/2022 9:55 AM EDTTelephone Encounter - [...] At one point was being seeing by [facility] EP for PPM but no PPM placed. [...] 125, triglycerides 162, hemoglobin A1c 5.4 Per [facility] cardiology 09/2020 HISTORY OF PRESENT ILLNESS: Mr. Iabnez is a 60 year old male with [...] not included)... [facility] 06-22-2023 Note LOOP IMPLANT PROCEDU RE NOTE [...] the sternum on the left using the [employer] tool. The loop recorder was then [...] Cardiac Electrophysiology. [facility] 06-02-2023 Note [place] Electrophysiology Consult Note Reason [...] At one point was being seeing by [facility] EP for PPM but no PPM placed. [...] 125, triglycerides 162, hemoglobin A1c 5.4 Per [facility] cardiology 09/2020 HISTORY OF PRESENT ILLNESS: Mr. [...] not included)... [facility] 04-15-2023 Note [place] Electrophysiology Consult Note Reason [...] At one point was being seeing by [facility] EP for PPM but no PPM placed [...] 125, triglycerides 162, hemoglobin A1c 5.4 Per [facility] cardiology 09/2020 HISTORY OF PRESENT ILLNESS: Mr. [...] not included)... [facility] 11-05-2022 Miscellaneous Notes Call from patient requesting refill. Requested Prescriptions Pending Prescriptions Disp Refills losartan (COZAAR) 50 mg tablet [Pharmacy Med Name: LOSARTAN POTASSIUM 50 MG TAB] 180 tablet 3 Sig: take one tablet by mouth twice a day Patient last seen 09/26/20 Mary Fowler documented in this encounter [facility] 09-25-2021 Miscellaneous Notes Electronic request for refill. Requested Prescriptions Pending Prescriptions Disp Refills losartan (COZAAR) 50 mg tablet [Pharmacy Med Name: LOSARTAN POTASSIUM 50 MG TAB] 180 tablet 3 Sig: TAKE 1 TABLET BY MOUTH TWICE A DAY Last office visit in was 07/26/2020 Aracelis Silveira documented in this encounter [facility] 09-26-2020 Note HNO ID: [id number] Author: Nimo Altman MD Service: ? Author Type: Physician Type: Progress Notes Filed: 10/24/2020 11:55 AM Note Text: [facility] [place] [facility] Tse Department of Cardiovascular Medicine SECTION OF CARDIOVASCULAR IMAGING OUTPATIENT VISIT DATE September 26, 2020 OUTPATIENT VISIT TYPE NEW PRIMARY CARE PHYSICIAN: Nehemiah Jimenez MD [address] [place] [address] REFERRING PHYSICIAN: Jarrod Luna [address] [place] [address] CHIEF COMPLAINT: Valvular heart disease HISTORY OF [...] mouth daily as directed. As directed by [facility] coumadin clinic. levothyroxine (SYNTHROID) 25 mcg [...] GASTROINTESTINAL: Negative for: (more content not included)... [facility] 07-26-2020 Note HNO ID: [id number] Author: Daksha Weir Service: ? Author Type: ? Type: Progress Notes Filed: 07/26/2020 2:25 PM Note Text: EVENT MONITOR DISPOSABLE PATCH INSTRUCTIONS Patient Name: Nitza Ibanez [facility] Number: [id number] Skin prepped and cleansed with alcohol Patch secured to prepped area Monitor Activated Serial #: [id number] Patient Instructed: 1.) Prescribed order timeframe 2.) Bathing guidelines 3.) Usage of event button and diary documentation 4.) Return of monitor at the end of prescribed order 5.) Call with problems [phone] or [phone] ext. [phone] Patient expresses a good understanding of instructions Daksha Weir [facility] 07-26-2020 Note Education (CARDMN) NITZA IBANEZ ([id number]) 1960 M Date Time Provider Department 07/26/20 2:00 PM [facility]RHYTHMIA MONITORING [facility] CARDMN Reason for Visit: ZIO PATCH [Other] Progress Notes: Daksha Weir 07/26/2020 2:25 PM Signed EVENT MONITOR DISPOSABLE PATCH INSTRUCTIONS Patient Name: Nitza Ibanez Clinic Number: [id number] Skin prepped and cleansed with alcohol Patch secured to prepped area Monitor Activated Serial #: [id number] Patient Instructed: 1.) Prescribed order timeframe 2.) Bathing guidelines 3.) Usage of event button and diary documentation 4.) Return of monitor at the end of prescribed order 5.) Call with problems [phone] or [phone]. [phone] Patient expresses a good understanding of instructions [...] Encounter Status:Closed by DAKSHA GRAVES on 07/26/20 [facility] 07-26-2020 Note HNO ID: [id number] Author: Jarrod Luna MD Service: ? Author [...] fibrillation, sudden deaths. 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 . Daughter A AND W. 2 grandchildren. Lives in [place], [place]. Habits: Tobacco: none. Alcohol: never. Caffeine: [...] sweating-No, Frequent urination (more content not included)... [facility] 07-26-2020 Note HNO ID: [id number] Author: Jarrod Luna MD Service: ? Author Type: Physician Type: Procedures Filed: 09/24/2020 11:47 AM Note Text: Patient Name: Nitza Ibnaez : 1960 Ordering Provider: Jarrod Luna Indication: [...] aortic valve with sinus bradycardia 54 bpm. [facility] 06-26-2020 Miscellaneous Notes Patient: Nitza Ibanez Date of : 1960 Patient phone number: [phone] Referring Provider for the encounter: Nehemiah Jimenez Requesting Provider: Someone that specializes in Valve Disease Reason for requesting visit (RFV/signs and symptoms/diagnosis): Bradycardia, tachycardia Person calling: self Return call to: self Medical Records/Insurance Card scanned into Epic: Yes Comments: Valve Replacement X2 documented in this encounter [facility] Summary Purpose Family History No Family [...] section and content) DATE CREATED AUTHOR 07/08/2018 [facility] DATE CREATED AUTHOR AUTHOR'S ORGANIZ ATION 10/27/2019 [facility] DATE CREATED AUTHOR AUTHOR'S ORGANIZ ATION 03/19/2021 [facility] DATE CREATED AUTHOR AUTHOR'S ORGANIZ ATION 04/02/2022 [facility] DATE CREATED AUTHOR AUTHOR'S ORGANIZ ATION 10/23/2023 [facility] DATE CREATED AUTHOR AUTHOR'S ORGANIZ ATION 12/29/2023 [facility] Source Comments (unrecognize d section and content) In the event this informatio n is protected by the Federal Confidentiality of Alcohol and Drug Abuse Patient Records regulations: The Federal rules restrict any use of the information to criminally investigate or prosecute any alcohol or drug abuse patient.[facility] the event this information is protected by the Federal Confidentiality of Alcohol and Drug Abuse Patient Records regulations: The Federal rules restrict any use of the information to criminally investigate or prosecute any alcohol or drug abuse patient.[facility] the event this information is protected by the Federal Confidentiality of Alcohol and Drug Abuse Patient Records regulations: The Federal rules restrict any use of the information to criminally investigate or prosecute any alcohol or drug abuse patient.[facility] Reason for Visit (unrecogniz ed section and content) Reason Comments External Referrals/resources Reason Comments Refill Request Care Teams (unrecognized sec tion and content) 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 Relationship Specialty Start Date End Date Nehemiah Jimenez MD [address] [place] [address] PCP - General Family Practice 06/06/13 Abner Young [address] [address] Referring Cardiology 07/26/20 Nimo Altman MD [address] [place] [address] Primary Staff Physician Cardiology 09/26/20 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 Relationship Specialty Start Date End Date Nehemiah Jimenez MD PCP - General Family Medicine 06/06/13 Abner Young [address] [address] Referring Cardiology 07/26/20 Nimo Altman MD [address] [place] [address] Primary Staff Physician Cardiology 09/26/20 [...] BE BASED ON THE PRIMARY CLINICAL RECORDS. [employer] provides no warranty or guarantee of the accuracy or completeness of information in this document.
== END 2023-12-30 15:24 | disposition home or self-care (01) ==
LOC: WC 15:23
PROVIDERS: PCP Physician Assistant; Visit Provider Physician Assistant
DX: L97.412 Non-pressure chronic ulcer of right heel and midfoot with fat layer exposed (principal)
CPT/HCPCS: 11042

== ENCOUNTER 2024-01-18 05:58 | Outpatient (RCR) | payer BC, SELFPAY | END 2024-02-16 09:10 | disposition home or self-care (01) | LOC: MM 05:58 | PROVIDERS: PCP Physician Assistant; Visit Provider Internal Medicine | DX: Z51.81 Encounter for therapeutic drug level monitoring (principal); Z79.01 Long term (current) use of anticoagulants; I48.91 Unspecified atrial fibrillation ==

== ENCOUNTER 2024-01-20 15:28 | Outpatient (OUT) | payer BC, SELFPAY ==
--- OUTSIDE RECORDS SUMMARY | 2024-01-20 15:50 | XMS_ITS | CCD ---
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 Role Phone Nehemiah Jimenez Primary Care Provider Nehemiah Jimenez Unavailable Nehemiah Jimenez MD Primary Care Provider [phone] Abner Young Unavailable Dianne WOOD, Nimo Garza Unavailable [phone] NEHEMIAH JIMENEZ Attending Unavailable ARTUR, DR CERNA Admitting Unavailable ARTUR, DR CERNA Primary Care Unavailable ARTUR, DR CERNA Consulting Unavailable MARTINAY, DR CERNA Attending Unavailable ARTUR, DR CERNA Admitting Unavailable ARTUR, DR CERNA Primary Care Unavailable Nehemiah Jimenez MD Primary Care Provider [phone] Abner Young Unavailable Dianne WOOD, Nimo Garza Unavailable MACARENA GARCIA Attending Unavailable MATT WILLIS Attending Unavailable MATT WILLIS Referring Unavailable EMY, MATT Referring Unavailable EMYMATT Referring Unavailable EMYMATT Saleh Attending Unavailable MATT WILLIS Admitting Unavailable EMYMATT Referring Unavailable EMYMATT Referring Unavailable GUERDA, JUAN Referring Unavailable HONORIO EVANS Attending Unavailable MATT WILLIS Attending Unavailable MATT [...] daily as directed. As directed by [facility] coumadin clinic. 0 10/21/2018 Active Comment on above: Take 5 mg by mouth d aily as directed. As directed by [facility] coumadin clinic. Problems Active Problems Problem Classification Problem Date Documented Da te Episodic/Chronic Aortic; peripheral; and visceral artery aneurysms (2 sources) Thoracic aortic aneurysm without rupture; Translations: [Thoracic aortic aneurysm, without rupture] Onset: 10-18-2015 09-26-2020 Chronic Cardiac dysrhythmias (6 sources) Atrial fibrillation; Translations: [Unspecified atrial fibrillation] Onset: 09-11-2016 09-26-2020 Chronic Cardiac dysrhythmias (2 sources) Palpitations; Translations: [Palpitations] Onset: 10-20-2023 Episodic Essential hypertension (2 sources) Essential hypertension; [...] Test Name Value Interpretation Reference Range Facility Prep for Procedureon 024 Prep for Procedure [id number] Indio Ibanez as L 1960 M Date Provider Department Center 12/31/2023 1987-LETI [facility]YAN [facility] Family History Problem Relation Age of Onset Cancer Mother Cancer Father Diabetes Sister Cancer Brother Diabetes Brother Family Status - Relation Status Age at Mother Father Sister Brother Normal [facility] Office Visiton 12-29-2023 Follow-up visit [id number] Indio Ibanez as L 1960 M Date Provider Department Center 12/29/2023 MATT [place] Family History Problem Relation Age of Onset Cancer Mother Cancer Father Diabetes Sister Cancer Brother Diabetes Brother Family Status - Relation Status Age at Mother Father Sister Brother Level of Service:69082 ND OFFICE/OUTPATIENT ESTABLISHED HIGH MDM 40 MIN Normal [facility] Office Visiton 09-29-2023 Follow-up visit [id number] Indio Ibanez as L 1960 M Date Provider Department Center 09/29/2023 MATT [place] Family History Problem Relation Age of Onset Cancer Mother Cancer Father Diabetes Sister Cancer Brother Diabetes Brother Family Status - Relation Status Age at Mother Father Sister Brother Level of Service:77611 ND OFFICE/OUTPATIENT ESTABLISHED LOW MDM 20 MIN Normal [facility] HPon 06-22-2023 [facility] Electrophysiology Consult Note Reason for [...] At one point was being seeing by [facility] EP for PPM but no PPM placed. [...] 125, triglycerides 162, hemoglobin A1c 5.4 Per [facility] cardiology 09/2020 HISTORY OF PRESENT ILLNESS: Mr. [...] on file Intimate Partner Violence: Unknown (04/10/2023) [place] Safety & Environment Fear of Current or [...] Constitutional Gener (more content not included)... Normal [facility] NURSNOTEon 06-22-2023 NURSNOTE RN educated pt on d/ c instructions. RN encouraged pt to voice any questions or concerns. Pt verbalizes no questions or concerns at this time. Pt was wheeled off of unit with all of belongings. Normal [facility] Office Visiton 06-02-2023 Follow-up visit [id number] Marcelle,Indio as L 1960 M Date Provider Department Center 06/02/2023 GilmarMATT FRIAS SAMUEL [facility] Family History Problem Relation Age of Onset Cancer Mother Cancer Father Diabetes Sister Cancer Brother Diabetes Brother Family Status - Relation Status Age at Mother Father Sister Brother Level of Service:73030 ND OFFICE/OUTPATIENT NEW MODERATE MDM 45 MINUTES Normal [facility] 36on 04-17-2023 36 He can restart his toprol XL 100mg once daily only Normal [facility] Office Visiton 04-15-2023 Follow-up visit [id number] MarcelleIndio as L 1960 M Date Provider Department Center 04/15/2023 HONORIO SEGUNOD SAMUEL [facility] Family History Problem Relation Age of Onset Cancer Mother Cancer Father Diabetes Sister Cancer Brother Diabetes Brother Family Status - Relation Status Age at Mother Father Sister Brother Level of Service:73458 ND OFFICE/OUTPATIENT NEW MODERATE MDM 45 MINUTES Reason for Visit and Comments: New Patient [632] - A Fib Normal [facility] CBC AUTO DIFFon 12-14-2021 BASO # 0.0 103/ul Normal 0.0-0.1 [facility] Comment on above: Performed By: #### C BC #### [facility] [address] [address] [address] Pérez Mg Basophils/100 WBC (Bld) 0.6 % Normal 0.2-2.[address] [facility] Comment on above: Performed By: #### C BC #### [facility] [address] [address] [address] Pérez Mg EO # 0.5 103/ul Normal 0.0-0.[address] [facility] Comment on above: Performed By: #### C BC #### [facility] [address] [address] [address] Pérez Mg Eosinophils/100 WBC (Bld) 8.6 % Critically high 0.9-7.[address] [facility] Comment on above: Performed By: #### C BC #### [facility] [address] [place] [address] Dr. Pérez Mg Erythrocyte distribution width (RBC) [Ratio] 13.2 % Normal 11.0-15.0 [facility] Comment on above: Performed By: #### C BC #### [facility] [address] [place] [address] Dr. Pérez Mg Hematocrit (Bld) [Volume fraction] 43.2 % Normal 42.0-54.0 [facility] Comment on above: Performed By: #### C BC #### [facility] [address] [place] [address] Dr. Pérez Mg Hemoglobin (Bld) [Mass/Vol] 14.6 g/dL Normal 14.0-18.0 [facility] Comment on above: Performed By: #### C BC #### [facility] [address] [place] [address] Dr. Pérez Mg IG # 0.06 10e3/ul Critically high 0.00-0.03 [facility] Comment on above: Performed By: #### C BC #### [facility] [address] [place] [address] Dr. Pérez Mg IG % 1.0 % Critically high 0.0-0.5 [facility] Comment on above: Performed By: #### C BC #### [facility] [address] [place] [address] Dr. Pérez Mg LYMPH # 1.1 103/ul Critically low 1.2-3.8 [facility] Comment on above: Performed By: #### C BC #### [facility] [address] [place] [address] Dr. Pérez Mg Lymphocytes/100 WBC (Bld) 17.5 % Critically low 20.5-60.0 [facility] Comment on above: Performed By: #### C BC #### [facility] [address] [place] [address] Dr. Pérez Mg MANUAL DIFF REQ NO Normal [facility] Comment on above: Performed By: #### C BC #### [facility] [address] [address] [address] Pérez Mg MCH (RBC) [Entitic mass] 29.0 pg Normal 25.9-34.[address] [facility] Comment on above: Performed By: #### C BC #### [facility] [address] [place] [address] Dr. Pérez Mg MCHC (RBC) [Mass/Vol] 33.8 g/dL Normal 29.9-35.[address] [facility] Comment on above: Performed By: #### C BC #### [facility] [address] [place] [address] Dr. Pérez Mg MCV (RBC) [Entitic vol] 85.9 fL Normal 80.0-94.0 [facility] Comment on above: Performed By: #### C BC #### [facility] [address] [place] [address] Dr. Pérez Mg MONO # 0.5 103/ul Normal 0.3-0.[address] [facility] Comment on above: Performed By: #### C BC #### [facility] [address] [place] [address] Dr. Pérez Mg Monocytes/100 WBC (Bld) 8.3 % Normal 1.7-12.0 [facility] Comment on above: Performed By: #### C BC #### [facility] [address] [place] [address] Dr. Pérez Mg NEUT # 4.0 103/ul Normal 1.4-6.[address] [facility] Comment on above: Performed By: #### C BC #### [facility] [address] [place] [address] Dr. Pérez Mg Neutrophils/100 WBC (Bld) 64.0 % Normal 43.0-75.[address] [facility] Comment on above: Performed By: #### C BC #### [facility] [address] [place] [address] Dr. Pérez Mg Platelet mean volume (Bld) [Entitic vol] 9.1 fL Critically low 9.5-13.[address] [facility] Comment on above: Performed By: #### C BC #### [facility] [address] [address] [address] Pérez Mg PLT 213 103/ul Normal 150-450 [facility] Comment on above: Performed By: #### C BC #### [facility] [address] [place] [address] Dr. Pérez Mg RBC 5.03 106/ul Normal 4.70-6.10 [facility] Comment on above: Performed By: #### C BC #### [facility] [address] [address] [address] Pérez Mg WBC 6.3 103/ul Normal 4.0-11.0 [facility] Comment on above: Performed By: #### C BC #### [facility] [address] [place] [address] Dr. Pérez Mg GLYCOHEMOGLOBIN A1Con 2021 ADA RECOMMENDATION SEE BELOW Normal [facility] Comment on above: Result Comment: ADA RECOMMENDED LIMIT 4.0 - 6.0 ADA THERAPEUTIC TARGET < 7.0 ACTION SUGGESTED > 7.0 Performed By: #### A 1C #### [facility] [address] [place] [address] Dr. Pérez Mg Glucose [Mass/Vol] 105 mg/dL Normal [facility] Comment on above: Performed By: #### A 1C #### [facility] [address] [place] [address] Dr. Pérez Mg HbA1c (Bld) [Mass fraction] 5.3 % Normal 4.5-6.2 [facility] Comment on above: Performed By: #### A 1C #### [facility] [address] [place] [address] Dr. Pérez Mg LIPID PROFILEon 12-14-2021 CHOL-HDL RATIO NORM SEE BELOW Normal [facility] Comment on above: Result Comment: 3.3 - 4.4 LOW RISK 4.4 - 7.1 AVERAGE RISK 7.1 - 11.0 MODERATE RISK >11.0 HIGH RISK Performed By: #### L IPID, CMP #### [facility] [address] [place] [address] Dr. Pérez Mg Cholesterol [Mass/Vol] 201 mg/dL Critically high <=[address] [facility] Comment on above: Performed By: #### L IPID, CMP #### [facility] [address] [address] [address] Pérez Mg Cholesterol in HDL [Mass/Vol] 41 mg/dL Normal 40-60 [facility] Comment on above: Performed By: #### L IPID, CMP #### [facility] [address] [address] [address] Pérez Mg Cholesterol in LDL [Mass/Vol] 122.8 mg/dL Normal [facility] Comment on above: Performed By: #### L IPID, CMP #### [facility] [address] [place] [address] Dr. Pérez Mg Cholesterol.total/Ch olesterol in HDL [Mass ratio] 4.9 {ratio} Normal [facility] Comment on above: Performed By: #### L IPID, CMP #### [facility] [address] [address] [address] Pérez Mg HDL NORMAL > or = 60 mg/dl - LO W CARDIOVASCULAR RISK <40 mg/dl - HIGH CARDIOVASCULAR RISK Normal [facility] Comment on above: Performed By: #### L IPID, CMP #### [facility] [address] [place] [address] Dr. Pérez Mg LDL CALC NORMAL SEE BELOW Normal [facility] Comment on above: Result Comment: <100 mg/dl OPTIMAL 100 - 129 mg/dl NEAR OR ABOVE OPTIMAL 130 - 159 mg/dl BORDERLINE HIGH 160 - 189 mg/dl HIGH >190 mg/dl VERY HIGH Performed By: #### L IPID, CMP #### [facility] [address] [address] [address] Pérez Mg Triglyceride [Mass/Vol] 186 mg/dL Critically high <=[address] [facility] Comment on above: Performed By: #### L IPID, CMP #### [facility] [address] [place] [address] Dr. Pérez Mg VLDL CALC 37.2 mg/dL Normal [facility] Comment on above: Performed By: #### L IPID, CMP #### [facility] [address] [address] [address] Pérez Mg PROF 14(COMP METB)on 022 Albumin [Mass/Vol] 3.9 g/dL Normal 3.4-5.0 [facility] Comment on above: Performed By: #### L IPID, CMP #### [facility] [address] [address] [address] Pérez Mg Albumin/Globulin [Mass ratio] 1.1 {ratio} Normal [facility] Comment on above: Performed By: #### L IPID, CMP #### [facility] [address] [address] [address] Pérez Mg ALP [Catalytic activity/Vol] 65 U/L Normal 46-116 [facility] Comment on above: Performed By: #### L IPID, CMP #### [facility] [address] [address] [address] Pérez Mg ALT [Catalytic activity/Vol] 41 U/L Normal 16-63 [facility] Comment on above: Performed By: #### L IPID, CMP #### [facility] [address] [address] [address] Pérez Mg Anion gap [Moles/Vol] 10.3 mmol/L Normal [facility] Comment on above: Performed By: #### L IPID, CMP #### [facility] [address] [address] [address] Pérez Mg AST [Catalytic activity/Vol] 33 U/L Normal 15-37 [facility] Comment on above: Performed By: #### L IPID, CMP #### [facility] [address] [address] [address] Pérez Mg Bilirubin [Mass/Vol] 0.5 mg/dL Normal 0.2-1.0 [facility] Comment on above: Performed By: #### L IPID, CMP #### [facility] [address] [address] [address] Pérez Mg Calcium [Mass/Vol] 9.0 mg/dL Normal 8.5-10.1 [facility] Comment on above: Performed By: #### L IPID, CMP #### [facility] [address] [address] [address] Pérez Mg Chloride [Moles/Vol] 103 mmol/L Normal 98-107 [facility] Comment on above: Performed By: #### L IPID, CMP #### [facility] [address] [place] [address] Dr. Pérez Mg CO2 [Moles/Vol] 27.7 mmol/L Normal 21.0-32.0 [facility] Comment on above: Performed By: #### L IPID, CMP #### [facility] [address] [place] [address] Dr. Pérez Mg Creatinine [Mass/Vol] 0.73 mg/dL Normal 0.70-1.30 [facility] Comment on above: Performed By: #### L IPID, CMP #### [facility] [address] [place] [address] Dr. Pérez Mg EGFR-AF UKRAINIAN >60 Normal >=60 [facility] Comment on above: Performed By: #### L IPID, CMP #### [facility] [address] [place] [address] Dr. Pérez Mg EGFR-NON AF UKRAINIAN >60 Normal >=60 [facility] Comment on above: Performed By: #### L IPID, CMP #### [facility] [address] [place] [address] Dr. Pérez Mg Globulin (S) [Mass/Vol] 3.6 g/dL Normal [facility] Comment on above: Performed By: #### L IPID, CMP #### [facility] [address] [place] [address] Dr. Pérez Mg Glucose [Mass/Vol] 110 mg/dL Critically high 74-106 [facility] Comment on above: Performed By: #### L IPID, CMP #### [facility] [address] [place] [address] Dr. Pérez Mg Potassium [Moles/Vol] 4.0 mmol/L Normal 3.5-5.1 [facility] Comment on above: Performed By: #### L IPID, CMP #### [facility] [address] [place] [address] Dr. Pérez Mg Protein [Mass/Vol] 7.5 g/dL Normal 6.4-8.2 [facility] Comment on above: Performed By: #### L IPID, CMP #### [facility] [address] [place] [address] Dr. Pérez Mg Sodium [Moles/Vol] 137 mmol/L Normal 136-145 [facility] Comment on above: Performed By: #### L IPID, CMP #### [facility] [address] [place] [address] Dr. Pérez Mg Urea nitrogen [Mass/Vol] 16.0 mg/dL Normal 7.0-18.0 [facility] Comment on above: Performed By: #### L IPID, CMP #### [facility] [address] [place] [address] Dr. Pérez Mg Urea nitrogen/Creatinine [Mass ratio] 21.9 mg/mg Normal [facility] Comment on above: Performed By: #### L IPID, CMP #### [facility] [address] [place] [address] Dr. Pérez [facility] ([id number]) 1960 M Date Time Provider Department 01/28/21 SHAQ LUNA During your visit today, we recorded the following information about you: Hacasie Silveira 01/28/2021 2:35 PM Signed Outside medical records uploaded to gumi: CT/OT - CTA chest with contrast - 11/07/2020 Allergies As of Date: 01/28/2021 (No Known Allergies) Date Reviewed: 09/26/2020 Reviewed by: Macarena Payton MD - Fully Assessed Reason for Visit: Received Outside Medical Records [[id number]] Cmt: CT/OT - CTA Chest with Contrast [...] mouth daily as [facility] - levothyroxine (SYNTHROID) 25 [...] Encounter Status:Closed by ANA FRAZIER on 01/28/21 [facility] Carla 09-26-2020 CNOV Office Visit (CARSAMMN ) NITZA IBANEZ ([id number]) 1960 M Date Time Provider Department 09/26/20 12:30 PM NIMO ALTMAN During your visit today, we recorded the following information about you: Pulse Respiration Blood pressure Weight 63/minute 12/minute 176/72 69.4 kg Height 1.778 m Nimo Altman MD 10/24/2020 11:55 AM Addend[facility] [place] [facility] Tse Department of Cardiovascular Medicine SECTION OF CARDIOVASCULAR IMAGING OUTPATIENT VISIT DATE September 26, 2020 OUTPATIENT VISIT TYPE NEW PRIMARY CARE PHYSICIAN: Nehemiah Jimenez MD [address] [phone] REFERRING PHYSICIAN: Shaq Luna [address] [facility] [address] CHIEF COMPLAINT: Valvular heart disease HISTORY OF [...] disease. Mr. Ibanez was last seen by Shaq Luna MD on 07/26/2020 for atrial fibrillation [...] daily as directed. As directed by [facility] coumadin clinic. levothyroxine (SYNTHROID) 25 mcg [...] Headache, Impai (more content not included)... Normal [facility] CNOVon 07-26-2020 CNOV Office Visit (CARDMN ) NITZA IBANEZ ([id number]) 1960 M Date Time Provider Department 07/26/20 12:15 PM SHAQ LUNA During your visit today, we recorded the following information about you: Pulse Blood pressure Weight Height 56/minute 167/76 69.4 kg 1.778 m Shaq Luna MD 07/26/2020 1:53 PM Signed REFERRING/OTHER [...] fibrillation, sudden deaths. 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 . Daughter A AND W. 2 grandchildren. Lives in [place], [place]. Habits: Tobacco: none. Alcohol: never. Caffeine: [...] paralysis-No, Numbness-No, (more content not included)... Normal [facility] Leila 07-20-2020 CNPN Telephone (CARDMN) NITZA IBANEZ ([id number]) 1960 M Date Time Provider Department 07/20/20 SHAQ LUNA CARDMN During your visit today, we recorded the following information about you: Ha Duvall 07/20/2020 4:14 PM Signed Outside medical records scanned into [employer]. Patient scheduled to see Dr. Shaq Luna on July 26, 2020. Allergies As of Date: 07/20/2020 (Not on File) Date Reviewed: Never Reviewed Reason for Visit: Received Outside Medical Records [[id number]] Problem List As Of Date: 07/20/2020 (None) Encounter Status:Closed by HA VALLES on 07/20/20 [facility] CNCOon 07-05-2020 CNCO Letter Text [facility] CNPNon 06-26-2020 CNPN Telephone (REFPHY) NITZA IBANEZ ([id number]) 1960 M Date Time Provider Department 06/26/20 NO PCP (HISTORICAL) REFPHY During your visit today, we recorded the following information about you: Aj Saez 06/26/2020 12:18 PM Signed Patient: Nitza Brown Marcelle Date of : 1960 Patient phone number: [phone] Referring Provider for the encounter: Nehemiah Jimenez Requesting Provider: Someone that specializes in Valve Disease Reason for requesting visit (RFV/signs and symptoms/diagnosis): Bradycardia, tachycardia Person calling: self Return call to: self Medical Records/Insurance Card scanned into [employer]: Yes Comments: Valve Replacement X2 Allergies As of Date: 06/26/2020 (Not on File) Date Reviewed: Never Reviewed Reason for Visit: External Referrals/resources [909] Problem List As Of Date: 06/26/2020 (None) Encounter Status:Closed by AJ SAEZ on 06/26/20 [facility] Facesheeton 10-27-2019 Facesheet [id number] 90 [id number] 0CD:127 Normal [facility] Provider Letter FTMCon 10-25 Provider Letter [facility] [place]hemiah Jimenez [address] [place] [place] [address] [place] [address] Re: NITZA IBANEZ Date of : 1960 Thank your for your referral of Nitza Ibanez who was seen on consultation on 10/25/2019 for epigastric pain and cholelithiasis. I have enclosed my consultation notes for your review. Sincerely, Kevin Martinez MD General Surgery Normal [facility] Ambulatory Clinical Summaryo n 10-25-2019 Ambulatory Clinical Summary {[id number]}CD:[id number] Normal [facility] General Surgery Office/Clini c Noteon 10-25-2019 General Surgery Office/Clinic Note Chief Complaint referral for cholelithiasis HPI Staff 59 year old male presents on consultation from Dr. Jimenez for cholelithiasis. Complains of intermittent abdominal pain for several years. Denies nausea or vomiting. [place] foods do make symptoms worse. Denies diarrhea. RUQ US completed 09/27/19 reported severe cholelithiasis, htn, pulmonary htn, Marfan's syndrome; reports intermittent upper abdominal pain, seen in [place] ED approximately 1 month ago, had epigastric burning pain, constant, radiating to chest; US revealed cholelithiasis, no acute inflammation, normal ducts; transferred to [place] for cardiac cath, reportedly ok, was to see surgeon at [facility] regarding gallbladder, but never set up appointment; [...] recommend evaluation at [facility] in [place] for their recommendations; patient would likely have more bleeding issues if developed acute cholecystitis due to anticoagulation, so may benefit from a controlled, elective operation. patient will f/u with surgeon he was given in [place]; call with problems/questions.see 2. Cholelithiasis (K80.20: Calculus of gallbladder without cholecystitis without obstruction) see # 1 3. GERD (gastroesophageal reflux disease) (K21.9: Gastro-esophageal reflux disease without esophagitis) see # 1 4. Chronic anticoagulation (Z79.01: care home (current) use of anticoagulants) see # 1 [...] cancer of bone: Father and Brother. Normal [facility] Comment on above: Result Comment: Elec tronically Signed By: JOAN WOOD, Kevin Drake\Date and Time Signed: 10/25/19 16:58 EDT Physician Referralon 020 Physician Referral [id number] 0CD:127 Normal [facility] Physician Referralon 020 Physician Referral [id number] CD:127 Normal [facility] RAD - Ultrasound Reporton RAD - Ultrasound Report [id number] 0CD:127 Normal [facility] Complete Blood Count Auto Di ffon 05-28-2018 Basophils #/vol (Bld) 0.0 10*3/uL Normal 0.0-0.2 [facility] Comment on above: Order Comment: Comme nt send tubes to 210 Result Comment: PERF ORMED BY: [address] [place] [address] PATHOLOGIST DENTAL COORDINATOR LESLYE GONZALEZ M.D. Performed By: #### C BC #### [facility] [address] [place] [address] [place] Basophils/100 WBC (Bld) 0.7 % Normal . [facility] Comment on above: Order Comment: Comme nt send tubes to 210 Performed By: #### C BC #### [facility] [address] [place] [address] [place] Eosinophils #/vol (Bld) 0.3 10*3/uL Normal 0.0-0.45 [facility] Comment on above: Order Comment: Comme nt send tubes to 210 Performed By: #### C BC #### [facility] [address] [place] [address] Eosinophils/100 WBC (Bld) 6.0 % Normal . [facility] Comment on above: Order Comment: Comme nt send tubes to 210 Performed By: #### C BC #### [address] Erythrocyte distribution width Ratio (RBC) 14.1 % Normal 12.0-14.8 [facility] Comment on above: Order Comment: Comme nt send tubes to 210 Performed By: #### C BC #### [address] Hematocrit Volume Fraction (Bld) 44.5 % Normal 38.8-50.0 [facility] Comment on above: Order Comment: Comme nt send tubes to 210 Performed By: #### C BC #### [address] Hemoglobin mass conc (Bld) 15.1 g/dL Normal 13.0-17.0 [facility] Comment on above: Order Comment: Comme nt send tubes to 210 Performed By: #### C BC #### [facility] [address] [place] [address] Lymphocytes #/vol (Bld) 0.7 10*3/uL Low 1.00-4.8 [facility] Comment on above: Order Comment: Comme nt send tubes to 210 Performed By: #### C BC #### [facility] [address] [place] [address] Lymphocytes/100 WBC (Bld) 11.9 % Normal . [facility] Comment on above: Order Comment: Comme nt send tubes to 210 Performed By: #### C BC #### [facility] [address] [place] [address] MCH Entitic mass (RBC) 33.9 g/dL Normal 32.5-35.6 [facility] Comment on above: Order Comment: Comme nt send tubes to 210 Performed By: #### C BC #### [facility] [address] MCH Entitic mass (RBC) 28.8 pg Normal 27.5-35.2 [facility] Comment on above: Order Comment: Comme nt send tubes to 210 Performed By: #### C BC #### [facility] [address] [place] [address] MCV Entitic volume (RBC) 85.0 fL Normal 83.5-101 [facility] Comment on above: Order Comment: Comme nt send tubes to 210 Performed By: #### C BC #### [facility] [address] [place] [address] Monocytes #/vol (Bld) 0.7 10*3/uL Normal 0.0-0.8 [facility] Comment on above: Order Comment: Comme nt send tubes to 210 Performed By: #### C BC #### [facility] [address] [place] [address] Monocytes/100 WBC (Bld) 11.8 % Normal . [facility] Comment on above: Order Comment: Comme nt send tubes to 210 Performed By: #### C BC #### [facility] [address] [place] [address] Neutrophils #/vol (Bld) 3.9 10*3/uL Normal 1.8-7.7 [facility] Comment on above: Order Comment: Comme nt send tubes to 210 Performed By: #### C BC #### [facility] [address] [place] [address] Neutrophils/100 WBC (Bld) 69.6 % Normal . [facility] Comment on above: Order Comment: Comme nt send tubes to 210 Performed By: #### C BC #### [facility] [address] [place] [address] Nucleated RBC/100 WBC Ratio (Bld) 0.0 % Normal 0-0.5 [facility] Comment on above: Order Comment: Comme nt send tubes to 210 Performed By: #### C BC #### [facility] [address] [place] [address] Platelet mean volume Entitic volume (Bld) 7.4 fL Normal 6.6-10.1 [facility] Comment on above: Order Comment: Comme nt send tubes to 210 Performed By: #### C BC #### [facility] [address] Platelets #/vol (Bld) 237 10*3/uL Normal 150-450 [facility] Comment on above: Order Comment: Comme nt send tubes to 210 Performed By: #### C BC #### [facility] [address] [place] [address] RBC #/vol (Bld) 5.24 10*6/uL Normal 3.90-5.60 [facility] Comment on above: Order Comment: Comme nt send tubes to 210 Performed By: #### C BC #### [facility] [address] [place] [address] WBC #/vol (Bld) 5.6 10*3/uL Normal 4.1-10.5 [facility] Comment on above: Order Comment: Comme nt send tubes to 210 Performed By: #### C BC #### [facility] [address] [place] [address] James 05-28-2018 L -- ---- Specimen: [id number] Received: 05/28/18 Status: CAIO Scott Num: [id number] Spec Type: Surgical Subm Dr: Jim Juels Jr, DO Tissues: A Colon - Polyp (SIGMOID POLYP) Procedures: HE Stain/2, Gross/Micro L4 ---- Patient Age/Sex Location Account Attending Physician ---- Nitza Ibanez 58/[facility] [id number] Jim Jules Jr, DO ---- SPEC NUM: [id number] RECD: 05/28/18 STATUS: CAIO SCOTT NUM: [id number] MARITO: 05/28/18 [facility] DR: Jim Jules Jr, DO ENTERED: 05/28/[address] [facility] [address]: CARINA TYPE: Surgical DEPT: S ORDERED: HE Stain/2, [...] microscopic findings support the above pathologic diagnosis. [id number] A. - - SIGMOID POLYP ---- ---- Specimen: [id number] Received: 05/28/18 Status: CAIO Scott Num: [id number] Spec Type: Surgical Subm Dr: Jim Jules Jr, DO Tissues: A Colon - Polyp (SIGMOID POLYP) Procedures: HE Stain/2, Gross/Micro L4 ---- Patient: Nitza Ibanez [id number] (Continued) ---- Signed (signature on file) Leslye Gonzalez MD 05/31/18 1553 [facility] Partial Thromboplastin Timeo elvis 05-28-2018 aPTT Coag time (Bld) 40.4 s High 23.0-35.0 [facility] Comment on above: Order Comment: Comme nt send tubes to 210 Result Comment: PERF ORMED BY: [place] [address] PATHOLOGIST DENTAL COORDINATOR LESLYE GONZALEZ M.D. Performed By: #### P T, PTT #### [facility] [address] [place] [id number] [facility] Prothrombin Time INRon 05-28 INR Coag RelTime (PPP) 1.4 {INR} Normal [facility] Comment on above: Order Comment: [...] Performed By: #### P T, PTT #### [facility] [address] [place] [id number] [facility] Prothrombin time (PT) Coag time (PPP) 16.4 s High 9.0-12.9 [facility] Comment on above: Order Comment: Comme nt send tubes to 210 Performed By: #### P T, PTT #### [facility] [address] [place] [id number] [facility] Encounters Encounter Date Encounter Type Care Provider Facility Start: 01-08-2024 ambulatory [facility] Start: 12-29-2023 End: 12-29-2023 ambulatory [facility] Start: 12-28-2023 ambulatory [facility] Start: 12-21-2023 ambulatory [facility] Start: 11-18-2023 ambulatory JUAN CROFT [facility] Start: 10-21-2023 End: 10-21-2023 ambulatory MACARENA GARCIA Not Available Start: 10-20-2023 ambulatory [facility] Start: 09-29-2023 End: 09-30-2023 ambulatory [facility] Start: 08-11-2023 ambulatory [facility] Start: 06-22-2023 End: 06-22-2023 ambulatory [facility] Start: 06-02-2023 End: 06-02-2023 ambulatory [facility] Start: 04-15-2023 End: 04-15-2023 ambulatory HONORIO [facility] Start: 11-05-2022 Refill Shaq Amezcua Work Phone: Cardiology Comment on above: Refill Request Start: 12-18-2021 Encounter for genera l adult medical examination without abnormal findings DR NEHEMIAH JIMENEZ [facility] Start: 12-14-2021 End: 12-15-[address] NEHEMIAH JIMENEZ Facility:[facility]1 Start: 12-14-2021 End: 12-15-2021 Encounter for general adult medical examination without abnormal findings DR NEHEMIAH JIMENEZ Facility:[facility] Start: 09-24-2021 Refill Shaq Amezcua Work Phone: Cardiology Comment on above: Refill Request Start: 07-18-[address] NEHEMIAH JIMENEZ Facility :[facility] Start: 06-26-2020 End: 06-26-2020 Telephone encounter No Pcp (Historical) Referring Physician Comment on above: External Referrals/r esources Procedures Date Procedure Procedure Detail Performing Clinician Start: 12-14-[address] OLEKSANDR JIMENEZ Comment on above: Performed By: #### P [facility] #### [facility] [address] [place] [address] Dr. Pérez Mg Plan of Treatment Date Care Activity Detail Author Start: 10-17-2022 Influenza vaccination Influenza Vacc ine (#1) [facility] Start: 02-16-2022 Depression Assessment Depression Ass essment [facility] Start: 10-17-2021 Influenza vaccination INFLUENZA (#1) [facility] Start: 06-18-2020 COVID-19 VACCINE (2 - Booster for Rowdy series) COVID-19 VACCINE (2 - Booster for Rowdy series) [facility] Start: 2014 PROSTATE CANCER SCRE ENING DISCUSSION PROSTATE CANCER SCREENING DISCUSSION [facility] Start: 2009 SHINGRIX VACCINE (1 of 2) SHINGRIX V ACCINE (1 of 2) [facility] Start: 2004 COLOGUARD (FIT-DNA) COLOGUARD (FIT-D NA) [facility] Start: 2004 Colonoscopy COLONOSCOPY [facility] Start: 2004 COLORECTAL CANCER SCREENING COLORECTAL CANCER SCREENING [facility] Start: [address] COLONOGRAPHY [facility] Start: 2004 DIABETES SCREEN DIABETES SCREEN [facility] Start: 2004 Diabetes Screening Diabetes Screenin g [facility] Start: 2004 FECAL OCCULT BLOOD FECAL OCCULT BLOO D [facility] Start: 2004 SIGMOIDOSCOPY SIGMOIDOSCOPY [facility] Start: 1994 Lipid 1996 panel - S brandon or Plasma Lipid Screening [facility] Start: 1994 LIPID SCREEN LIPID SCREEN [facility] Start: 1978 Urine microalbumin profile [facility] Start: 1977 ANNUAL PCP TEAM GEMOLOGIST ALAN DISEASE VISIT ANNUAL PCP TEAM CHRONIC DISEASE VISIT [facility] Start: 1977 BP CONTROLLED (<130/80) BP CONTROLLE D (<130/80) [facility] Start: 1977 HEPATITIS C SCREENING HEPATITIS C SC REENING [facility] Start: 1977 HIV SCREENING HIV SCREENING [facility] Start: 1971 Adult depression scr eening assessment DEPRESSION SCREENING [facility] Immunizations Immunization Date Immunization Notes Care Provider Fa joan 12-28-2019 influenza virus vacc ine, unspecified formulation Shaq Luna MD Work Phone: [facility] Payers Date Payer Category Payer Unknown [id number] 2023 Unknown [id number] 2020 Unknown [employer] ACCE SS PPO [id number] 2020-Present [phone] [address] [place] [address] PPO [id number] 2013 Unknown [facility] [id number] 2013-Present HMO [id number] 1959 Unknown [id number] 3 1959 Unknown [id number] 1959 Unknown [id number] 1960 Self-pay 1959 Unknown [id number] Social History Date Type Detail Facility Tobacco smoking stat [facility] Unknown if ever smoked [facility] Start: 1960 Sex Assigned At Not on file C [facility] Start: 07-26-2020 Tobacco smoking stat [facility] Never smoked tobacco [facility] Work Phone: Start: 07-26-2020 Tobacco use and exposure Smokeless tobacco non-user [facility] Work Phone: Start: 09-26-2020 Alcohol intake Lifetime non-d jose e (finding) [facility] Start: 07-26-2020 History SDOH Alcohol Frequency 1 [facility] Start: 07-26-2020 End: 09-26-2020 History of Social function [facility] Start: 07-26-2020 End: 09-26-2020 Tobacco use panel [facility] National Score (1-10 0), lower number is lower risk Not on file [facility] Clinical Notes 06-26-2020 to 12-29-2023 Telephone Encounter - Mary Fowler - 11/05/2022 9:55 AM EDTTelephone Encounter - Ha Silveira - 09/25/2021 7:16 AM EDTTelephone Encounter - Aj Saez - 06/26/2020 12:16 PM EDT Note Date & Type Note Facility 12-29-2023 Note [facility] Consult Note Reason for visit: AF, MVRx2 (rheumatic disease hx?), hx AVR 12/29/23 Patient here for 3 mo follow up PAF, hypertension, and valvular heart disease. He's been noticing more frequent palpitations lately. Denies SOB and lightheadedness, but does admit to some chest soreness . Patient noted to have atrial fibrillation on October 12, 2023 which lasted for 40 minutes and much more rapid RVR was seen on October 10 09/29/23 Pt felt he was in Afib [...] At one point was being seeing by [facility] EP for PPM but no PPM placed. [...] 125, triglycerides 162, hemoglobin A1c 5.4 Per [facility] cardiology 09/2020 HISTORY OF PRESENT ILLNESS: Mr. [...] valves. PMH: Past Medical History: Diagnosis Date Abnormal ECG Aneurysm of ascending aorta without rupture (CMS/HCC) Aortic valve replaced Arrhythmia Atrial fibrillation (CMS/HCC) Cardiomegaly GERD (gastroesophageal reflux disease) H/O mitral valve replacement with mechanical valve Hyperlipidemia Hypertension Marfan's syndrome Peyronie's syndrome Pulmonary hypertension (CMS/HCC) Ventricular hypertrophy PSH: Past Surgical History: Procedure Laterality Date AORTIC VALVE REPLACEMENT CHOLECYSTECTOMY COLONOSCOPY W/ BIOPSIES AND POLYPECTOMY MITRAL VALVE REPLACEMENT SH: Social Determinants of Health Tobacco Use: Low Risk (12/29/2023) Patient History Smoking Tobacco Use: Never Smokeless Tobacco Use: Never Passive Exposure: Not on file Alcohol Use: Not on file Financial Resource Strain: Not on file Food Insecurity: Not on file Transportation Needs: Not on file Physical Activity: Not on file Stress: Not on file Social Connections: Not on file Intimate Partner Violence: Unknown (04/10/2023) [place] Safety [place] Fear of Current or Ex-Partner: Not on file Emotionally Abused: Not on file Physically Abused: Not on file Sexually Abused: Not on file Physically or Sexually Abused: Not on file Depression: Not on file Housing Stability: Not on file Utilities: Not on file Allergies: No Known Allergies Weight: 68.5kg Visit Vitals BP 160/86 (BP Location: Right arm, Patient Position: Sitting) Pulse 90 Ht 1.778 m (5' 10 ) Wt 68.5 kg (151 lb) SpO2 95% BMI 21.67 kg/m??? Smoking Status Never BSA [...] by mouth 2 times daily. metoprolol succinate (more content not included)... [facility] 09-29-2023 Note [facility] Consult Note Reason for visit: AF, [...] At one point was being seeing by [facility] EP for PPM but no PPM placed. [...] 125, triglycerides 162, hemoglobin A1c 5.4 Per [facility] cardiology 09/2020 HISTORY OF PRESENT ILLNESS: Mr. [...] on file Intimate Partner Violence: Unknown (04/10/2023) [place] Safety [place] Fear of Current or [...] of Systems Cardiovascular (more content not included)... [facility] 06-22-2023 Note LOOP IMPLANT PROCEDU RE [...] the sternum on the left using the Minube tool. The loop recorder was then injected [...] the incision. Matt Willis MD Cardiac Electrophysiology. [facility] 06-02-2023 Note [facility] Consult Note Reason for visit: AF, [...] At one point was being seeing by [facility] EP for PPM but no PPM placed. [...] 125, triglycerides 162, hemoglobin A1c 5.4 Per [facility] cardiology 09/2020 HISTORY OF PRESENT ILLNESS: Mr. [...] on file Intimate Partner Violence: Unknown (04/10/2023) [place] Safety [place] Fear of Current or [...] for irregular he (more content not included)... [facility] 04-15-2023 Note [facility] Consult Note [...] At one point was being seeing by [facility] EP for PPM but no PPM placed [...] 125, triglycerides 162, hemoglobin A1c 5.4 Per [facility] cardiology 09/2020 HISTORY OF PRESENT ILLNESS: Mr. [...] by mouth every (more content not included)... [facility] 11-05-2022 Miscellaneous Notes Call from patient requesting refill. Requested Prescriptions Pending Prescriptions Disp Refills losartan (COZAAR) 50 mg tablet [Pharmacy Med Name: LOSARTAN POTASSIUM 50 MG TAB] 180 tablet 3 Sig: take one tablet by mouth twice a day Patient last seen 09/26/20 Mary Fowler documented in this encounter [facility] 09-25-2021 Miscellaneous Notes Electronic request for refill. Requested Prescriptions Pending Prescriptions Disp Refills losartan (COZAAR) 50 mg tablet [Pharmacy Med Name: LOSARTAN POTASSIUM 50 MG TAB] 180 tablet 3 Sig: TAKE 1 TABLET BY MOUTH TWICE A DAY Last office visit in was 07/26/2020 Ha Silveira documented in this encounter [facility] 09-26-2020 Note HNO ID: [id number] Author: Nimo Altman MD Service: ? Author Type: Physician Type: Progress Notes Filed: 10/24/2020 11:55 AM Note Text: [facility] [place] Indra Tse Department of Cardiovascular Medicine SECTION OF CARDIOVASCULAR IMAGING OUTPATIENT VISIT DATE September 26, 2020 OUTPATIENT VISIT TYPE NEW PRIMARY CARE PHYSICIAN: Nehemiah Jimenez MD [address] [place] [address] REFERRING PHYSICIAN: Shaq Luna [address] [facility] [address] CHIEF COMPLAINT: Valvular heart disease HISTORY OF [...] disease. Mr. Ibanez was last seen by Shaq Luna MD on 07/26/2020 for atrial fibrillation [...] daily as directed. As directed by [facility] coumadin clinic. levothyroxine (SYNTHROID) 25 mcg [...] GASTROINTESTINAL: Negative for: (more content not included)... [facility] 07-26-2020 Note HNO ID: [id number] Author: Joycelyn Weir Service: ? Author Type: ? Type: Progress Notes Filed: 07/26/2020 2:25 PM Note Text: EVENT MONITOR DISPOSABLE PATCH INSTRUCTIONS Patient Name: Nitza Ibanez [facility] Number: [id number] Skin prepped and cleansed with alcohol Patch secured to prepped area Monitor Activated Serial #: [id number] Patient Instructed: 1.) Prescribed order timeframe 2.) Bathing guidelines 3.) Usage of event button and diary documentation 4.) Return of monitor at the end of prescribed order 5.) Call with problems [phone] or [phone] ext. [phone] Patient expresses a good understanding of instructions Joycelyn Weir [facility] 07-26-2020 Note Education (CARDMN) NITZA IBANEZ Kevin ([id number]) 1960 M Date Time Provider Department 07/26/20 2:00 PM ARRHYTHMIA MONITORING LAB CARDMN Reason for Visit: ZIO PATCH [Other] Progress Notes: Joycelyn Weir 07/26/2020 2:25 PM Signed EVENT MONITOR DISPOSABLE PATCH INSTRUCTIONS Patient Name: Nitza Ibanez [facility] Number: [id number] Skin prepped and cleansed with alcohol Patch secured to prepped area Monitor Activated Serial #: [id number] Patient Instructed: 1.) Prescribed order timeframe 2.) Bathing guidelines 3.) Usage of event button and diary documentation 4.) Return of monitor at the end of prescribed order 5.) Call with problems [phone] or [phone] ext. [phone] Patient expresses a good understanding of instructions Joycelyn Christina Weir Primary Visit Diagnosis:AF (paroxysmal atrial fibrillation) ([facility]) [I48.0] Other Visit Diagnoses:Palpitation [R00.2] Sinus bradycardia [...] by mouth twice * Encounter Status:Closed by CHRISTINA WEIR, JOYCELYN on 07/26/20 [facility] 07-26-2020 Note HNO ID: [id number] Author: Shaq Luna MD Service: ? Author Type: Physician [...] fibrillation, sudden deaths. 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 . Daughter A AND W. 2 grandchildren. Lives in [place], [place]. Habits: Tobacco: none. Alcohol: never. Caffeine: [...] sweating-No, Frequent urination (more content not included)... [facility] 07-26-2020 Note HNO ID: [id number] Author: Shaq Luna MD Service: ? Author Type: Physician Type: Procedures Filed: 09/24/2020 11:47 AM Note Text: Patient Name: Nitza Ibanez : 1960 Ordering Provider: Shaq Luna Indication: I48.0 Paroxysmal atrial fibrillation Type [...] aortic valve with sinus bradycardia 54 bpm. [facility] 06-26-2020 Miscellaneous Notes Patient: Nitza Ibanez Date of : 1960 Patient phone number: [phone] Referring Provider for the encounter: Nehemiah Jimenez Requesting Provider: Someone that specializes in Valve Disease Reason for requesting visit (RFV/signs and symptoms/diagnosis): Bradycardia, tachycardia Person calling: self Return call to: self Medical Records/Insurance Card scanned into [employer]: Yes Comments: Valve Replacement X2 documented in this encounter [facility] Summary Purpose Family History No [...] content) DATE CREATED AUTHOR 07/08/2018 [facility] DATE CREATED AUTHOR AUTHOR'S ORGANIZ ATION 10/27/2019 [facility] DATE CREATED AUTHOR AUTHOR'S ORGANIZ ATION 03/19/2021 [facility] DATE CREATED AUTHOR AUTHOR'S ORGANIZ ATION 04/02/2022 [facility] DATE CREATED AUTHOR AUTHOR'S ORGANIZ ATION 10/23/2023 [facility] EPIC DATE CREATED AUTHOR AUTHOR'S ORGANIZ ATION 01/10/2024 [facility] Source Comments (unrecognize d section and content) In the event this informatio n is protected by the Federal Confidentiality of Alcohol and Drug Abuse Patient Records regulations: The Federal rules restrict any use of the information to criminally investigate or prosecute any alcohol or drug abuse patient[facility] the event this information is protected by the Federal Confidentiality of Alcohol and Drug Abuse Patient Records regulations: The Federal rules restrict any use of the information to criminally investigate or prosecute any alcohol or drug abuse patient.[facility] the event this information is protected by the Federal Confidentiality of Alcohol and Drug Abuse Patient Records regulations: The Federal rules restrict any use of the information to criminally investigate or prosecute any alcohol or drug abuse patient.[facility] Reason for Visit (unrecogniz ed section and content) Reason Comments External Referrals/resources Reason Comments Refill Request Care Teams (unrecognized sec tion and content) Voting Machine Mechanic Relationship Specialty Start Date End Date Nehemiah Jimenez MD [address] [place] [address] PCP - General Family Practice 06/06/13 Abner Young [address] [address] Referring Cardiology 07/26/20 Nimo Altman MD [address] [place] [address] Primary Staff Physician Cardiology 09/26/20 Voting Machine Mechanic Relationship Specialty Start Date End Date Nehemiah Jimenez MD PCP - General Family Medicine 06/06/13 Abner Young [address] [address] Referring Cardiology 07/26/20 Nimo Altman MD [address] [place] [address] Primary Staff Physician Cardiology 09/26/20 [...] BE BASED ON THE PRIMARY CLINICAL RECORDS. [facility] [employer] [facility]. provides no warranty or guarantee of the accuracy or completeness of information in this document.
== END 2024-01-20 15:29 | disposition home or self-care (01) ==
LOC: WC 15:28
PROVIDERS: PCP Physician Assistant; Visit Provider Physician Assistant
DX: L97.412 Non-pressure chronic ulcer of right heel and midfoot with fat layer exposed (principal)
CPT/HCPCS: G0463

== ENCOUNTER 2024-02-01 14:50 | Outpatient (OUT) | payer BC, SELFPAY ==
[2024-02-01 15:25] LABS: INR 1.94; Prothrombin Time 19.3 sec (9.0-11.6)
== END 2024-02-01 14:51 | disposition home or self-care (01) ==
LOC: LAB 14:50
PROVIDERS: PCP Family Medicine; Visit Provider Internal Medicine Cardiovascular Disease
DX: I48.0 Paroxysmal atrial fibrillation (principal)
CPT/HCPCS: 36415; 85610

== ENCOUNTER 2024-02-01 14:51 | Outpatient (OUT) | payer BC, SELFPAY ==
[2024-02-01 15:06] LABS: Basophils Absolute Auto 0.1 10^3/uL (0.0-0.1); Basophils Percent Auto 0.9 % (0.2-2.0); Eosinophils Absolute Auto 0.6 10^3/uL (0.0-0.7); Eosinophils Percent Auto 7.5 % (0.9-7.0); Hematocrit 41.9 % (42.0-54.0); Hemoglobin 13.9 g/dL (14.0-18.0); Immature Granulocytes Abs Auto 0.06 10^3/uL (0.00-0.03); Immature Granulocytes Pct Auto 0.8 % (0.0-0.5); Lymphocytes Absolute Auto 1.8 10^3/uL (1.2-3.8); Lymphocytes Percent Auto 23.1 % (20.5-60.0); Mean Corpuscular HGB Conc 33.2 g/dL (29.9-35.2); Mean Corpuscular Hemoglobin 29.1 pg (25.9-34.0); Mean Corpuscular Volume 87.8 fL (80.0-94.0); Mean Platelet Volume 9.1 fL (9.5-13.5); Monocytes Absolute Auto 0.7 10^3/uL (0.3-0.8); Monocytes Percent Auto 9.4 % (1.7-12.0); Neutrophils Absolute Auto 4.5 10^3/uL (1.4-6.5); Neutrophils Percent Auto 58.3 % (43.0-75.0); Platelet Count 222 10^3/uL (150-450); Red Blood Count 4.77 10^6/uL (4.70-6.10); White Blood Count 7.8 10^3/uL (4.0-11.0)
[2024-02-01 15:34] LABS: Alanine Aminotransferase 33 U/L (16-63); Albumin Globulin Ratio 0.9; Albumin Level 3.6 g/dL (3.4-5.0); Alkaline Phosphatase 65 U/L (46-116); Anion Gap 11.4; Aspartate Amino Transferase 36 U/L (15-37); BUN Creatinine Ratio 22.9; Bilirubin Total 0.7 mg/dL (0.2-1.0); Calcium 9.1 mg/dL (8.5-10.1); Carbon Dioxide 29.8 mmol/L (21.0-32.0); Chloride 103 mmol/L (98-107); Estimated GFR (African America >60 (>=60 mL/min/1.73m^2); Estimated GFR (Non-African Ame >60 (>=60 mL/min/1.73m^2); Globulin 3.9 g/dL; Glucose 80 mg/dL (74-106); Potassium 4.2 mmol/L (3.5-5.1); Sodium 140 mmol/L (136-145); Total Protein 7.5 g/dL (6.4-8.2)
[2024-02-01 15:45] LABS: Prostate Specific Antigen Scrn 1.56 ng/mL (<=4.00)
[2024-02-01 15:46] LABS: Chol HDL Ratio 4.4; Cholesterol 177 mg/dL (<=200); Free T3 2.53 pg/mL (2.18-3.98); HDL Cholesterol 40 mg/dL (40-60); Thyroid Stimulating Hormone 4.053 uIU/mL (0.358-3.740); Triglycerides 153 mg/dL (<=150); VLDL CHOLESTEROL 30.6 mg/dL
[2024-02-01 16:22] LABS: Estimated Average Glucose 103 mg/dL; Glycohemoglobin A1C 5.2 % (4.5-6.2)
== END 2024-02-01 14:52 | disposition home or self-care (01) ==
LOC: LAB 14:51
PROVIDERS: PCP Family Medicine; Visit Provider Family Medicine
DX: Z00.00 Encounter for general adult medical examination without abnormal findings (principal); I48.0 Paroxysmal atrial fibrillation; Z12.5 Encounter for screening for malignant neoplasm of prostate
CPT/HCPCS: 36415; 80053; 80061; 83036; 84436; 84443; 84481; 85025; 85610; G0103

== ENCOUNTER 2024-02-18 01:49 | Outpatient (RCR) | payer BC, SELFPAY | END 2024-03-18 14:32 | disposition home or self-care (01) | LOC: MM 01:49 | PROVIDERS: PCP Family Medicine; Visit Provider Internal Medicine | DX: Z51.81 Encounter for therapeutic drug level monitoring (principal); Z79.01 Long term (current) use of anticoagulants; I48.91 Unspecified atrial fibrillation ==

== ENCOUNTER 2024-03-03 15:06 | Outpatient (OUT) | payer BC, SELFPAY ==
--- OUTSIDE RECORDS SUMMARY | 2024-03-03 15:10 | XMS_ITS | CCD ---
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 Role Phone Nehemiah Jimenez Primary Care Provider [phone] Nehemiah Jimenez Unavailable Nehemiah Jimenez MD Primary Care Provider [phone] Abner Young Unavailable Dianne WOOD, Nimo H Unavailable [phone] NEHEMIAH JIMENEZ Attending Unavailable DR NEHEMIAH JIMENEZ Admitting Unavailable ARTUR, DR CERNA Primary Care Unavailable DR NEHEMIAH JIMENEZ Consulting Unavailable DR NEHEMIAH JIMENEZ Attending Unavailable DR NEHEMIAH JIMENEZ Admitting Unavailable DR NEHEMIAH JIMENEZ Primary Care Unavailable Nehemiah Jimenez MD Primary Care Provider [phone] Abner Young Unavailable Dianne WOOD, Nimo H Unavailable MACARENA GARCIA Attending Unavailable Nehemiah Jimenez MD Primary Care Provider [phone] Kevin FRANCO Attending Unavailable Nehemiah Jimenez Referring Unavailable HONORIO CROFT Attending Unavailable MATT WILLIS Admitting Unavailable EMYMATT Attending Unavailable EMYMATT Saleh Attending Unavailable EMYMATT Saleh Attending Unavailable EMYMATT Saleh Attending Unavailable EMYMATT Saleh Referring Unavailable GUERDAJUAN Referring Unavailable EMYMATT Referring Unavailable EMYMATT Referring Unavailable EMYMATT Saleh Referring Unavailable EMYMATT Saleh Referring Unavailable EMYMATT Saleh Referring Unavailable EMYMATT Saleh Attending Unavailable EMYMATT Saleh Referring Unavailable EMYMATT Referring Unavailable EMYMATT Saleh Referring Unavailable EMYMATT Saleh Admitting Unavailable EMY, MATT Attending Unavailable Allergies Allergy Classification Reported Allergen(s) Allergy Type Date of Onset Reaction(s) Facility (1 source) No Known Medication Allergies; Translations: [No Known Medication Allergies] Propensity to adverse reactions (disorder) [facility] Repository Medications Current Medications Medication Drug Class(es) Dates [...] rupture] Onset: 10-18-2015 09-26-2020 Chronic Cardiac dysrhythmias (8 sources) Atrial fibrillation; Translations: [Unspecified atrial fibrillation] Onset: 09-11-2016 09-26-2020 Chronic Essential hypertension (2 sources) Essential hypertension; Translations: [Essential (primary) hypertension] Onset: 09-26-2020 09-26-2020 Chronic Heart valve disorders (4 sources) History of mitral valve replacement; Translations: [Presence of prosthetic heart valve] Onset: 09-26-2020 09-26-2020 Chronic Miscellaneous mental health disorders (2 sources) Primary insomnia; Translations: [Primary insomnia] 10-21-2023 Chronic Residual codes; unclassified (2 sources) Obstructive sleep apnea syndrome; Translations: [Obstructive sleep apnea (adult) (pediatric)] 10-21-2023 Chronic Residual codes; unclassified (2 sources) Hypersomnia; Translations: [Hypersomnia, unspecified] 10-21-2023 Chronic Past or Other Problems Problem Classification Problem Date Documented Da te Episodic/Chronic Cardiac dysrhythmias (2 sources) Palpitations; Translations: [Palpitations] Onset: 11-18-2023 Episodic Other lower respiratory disease (2 sources) Hypoxia; Translations: [Hypoxemia] 10-21-2023 Episodic Other lower respiratory disease (3 sources) Snoring; Translations: [Snoring] Onset: 04-15-2023 10-21-2023 Episodic Other lower respiratory disease (1 source) Snoring; Translations: [Snoring] Onset: 04-15-2023 Episodic Other screening for suspected conditions (not mental disorders or infectious disease) (1 source) Encounter for screening for malignant neoplasm of prostate; Translations: [ENC SCREEN MALIG NEOPLASM PROSTATE] Onset: 12-18-2021 Episodic Residual codes; unclassified (2 sources) Inadequate sleep hygiene; Translations: [Inadequate sleep hygiene] 10-21-2023 Episodic Results Test Name Value Interpretation Reference Range Facility Telephoneon 02-25-2024 Telephone [id number] Indio Ibanez L 1960 M Date Provider Department Center 02/25/20241986-LETI RYAN [facility] [place] [facility] Family History Problem Relation Age of Onset Cancer Mother Cancer Father Diabetes Sister Cancer Brother Diabetes Brother Family Status - Relation Status Age at Mother Father Sister Brother Reason for Visit and Comments: 3 week post ablation f/u [Other] Normal [facility] Telephoneon 02-18-2024 Telephone [id number] Indio Ibanez L 1960 M Date Provider Department Center 02/18/20241986-[facility] [place] [facility] Family History Problem Relation Age of Onset Cancer Mother Cancer Father Diabetes Sister Cancer Brother Diabetes Brother Family Status - Relation Status Age at Mother Father Sister Brother Reason for Visit and Comments: post ablation f/u [Other] [facility] 36on 02-06-2024 36 No answer when dominguez d for discharge call back, message left, call back number provided if he has any questions or concerns. Normal [facility] Telephoneon 02-06-2024 Telephone [id number] Indio Ibanez L 1960 M Date Provider Department Center 02/06/2024 1912[facility] [place] [facility] Family History Problem Relation Age of Onset Cancer Mother Cancer Father Diabetes Sister Cancer Brother Diabetes Brother Family Status - Relation Status Age at Mother Father Sister Brother Reason for Visit and Comments: Hospital Follow-up [832] [facility] 30on 02-05-2024 30 The patient is Moderately Stable - Low risk of patient condition declining or worsening The patient's goals for the shift include rest/comfort The clinical goals for the shift include VSS, safety Over the shift, the patient did not make progress toward the following goals. Barriers to progression include. Recommendations to address these barriers include. Normal [facility] 30 The patient is Moderately Stable - Low risk of patient condition declining or worsening The patient's goals for the shift include rest/comfort The clinical goals for the shift include VSS,safety Over the shift, the patient did not make progress toward the following goals. Barriers to progression include. Recommendations to address these barriers include. Normal [facility] BASIC METABOLIC PANELon -2 Anion gap [Moles/Vol] 12 mmol/L Normal - [facility] Comment on above: Performed By: #### L [id number] #### [facility] ([facility]) [address] [place] [address] Calcium [Mass/Vol] 8.5 mg/dL Low 8.6-10.3 [facility] Comment on above: Performed By: #### L [id number] #### [facility] ([facility]) [address] [place] [address] Chloride [Moles/Vol] 103 mmol/L Normal 98-107 [facility] Comment on above: Performed By: #### L [id number] #### [facility] ([facility]) [address] [place] [address] CO2 [Moles/Vol] 23 mmol/L Normal 21-31 [facility] Comment on above: Performed By: #### L [id number] #### [facility] ([facility]) [address] [place] [address] Creatinine [Mass/Vol] 0.86 mg/dL Normal 0.70-1.30 [facility] Comment on above: Performed By: #### L [id number] #### [facility] ([facility]) [address] [place] [address] GLOMERULAR FILTRATION RATE ML/MIN/1.73 SQ M.PREDICTED 96.7 mL/min/1.73m*2 Normal >60.0 [facility] Comment on above: Result Comment: The [facility]???s estimated glomerular filtration rate (eGFR) will no longer include consideration of race in its calculation. The National Kidney Foundation???s eGFR Task Force developed new recommendations for the estimation of the glomerular filtration rate in the [place] They recommend immediate implementation of the new equation refit without the race variable in all laboratories because the calculation does not include race. In addition to not including race in the calculation and reporting, it included diversity in its development, and has acceptable performance characteristics and potential consequences that do not disproportionately affect any one group of individuals. Performed By: #### L [id number] #### [facility] ([facility]) [address] [place] [address] Glucose [Mass/Vol] 141 mg/dL High 70-100 [facility] Comment on above: Performed By: #### L [id number] #### [facility] ([facility]) [address] [place] [address] Potassium [Moles/Vol] 4.0 mmol/L Normal 3.5-5.1 [facility] Comment on above: Performed By: #### L [id number] #### [facility] [address] [place] [address] Sodium [Moles/Vol] 134 mmol/L Low 136-145 [facility] Comment on above: Performed By: #### L [id number] #### [facility] [address] [place] [address] Urea nitrogen [Mass/Vol] 19 mg/dL Normal 7-25 [facility] Comment on above: Performed By: #### L [id number] #### [facility] ([facility]) [address] [place] [address] UREA NITROGEN/CREATININE (MASS RATIO) IN SER/PLAS 22.1 Normal [facility] Comment on above: Performed By: #### L [id number] #### [facility] ([facility]) [address] [place] [address] BLOOD CULTUREon 02-05-2024 Bacteria identified Cx Nom (Bld) No growth at 5 days Normal [facility] Comment on above: Performed By: #### L [id number] #### [facility] ([facility]) [address] [place] [address] Order Comment: From a different site than #1. Performed By: #### L [id number] ####[facility] ([facility])[address] [place] [address] CBC WITH AUTO DIFFERENTIALon 02-05-2024 Basophils (Bld) [#/Vol] 0.01 10*3/uL Normal 0.00-0.20 [facility] Comment on above: Performed By: #### L [id number] #### [facility] [address] [place] [address] Basophils/100 WBC (Bld) 0.1 % Normal 0.0-1.0 [facility] Comment on above: Performed By: #### L [id number] #### [facility] ([facility]) [address] [place] [address] Eosinophils (Bld) [#/Vol] 0.00 10*3/uL Normal 0.00-0.50 [facility] Comment on above: Performed By: #### L [id number] #### [facility] [address] [place] [address] Eosinophils/100 WBC (Bld) 0.0 % Normal 0.0-6.0 [facility] Comment on above: Performed By: #### L [id number] #### [facility] ([facility]) [address] [place] [address] Erythrocyte distribution width (RBC) [Ratio] 13.3 % Normal 11.5-15.0 [facility] Comment on above: Performed By: #### L [id number] #### [facility] ([facility]) [address] [place] [address] ERYTHROCYTE MEAN CORPUSCULAR HEMOGLOBIN CONCENTRATION (G/DL) BY AUTOMATED 33.1 g/dL Normal 32.0-35.0 [facility] Comment on above: Performed By: #### L [id number] #### [facility] ([facility]) [address] [place] [address] Hematocrit (Bld) [Volume fraction] 38.1 % Low 39.0-55.0 [facility] Comment on above: Performed By: #### L [id number] #### [facility] [address] [place] [address] Hemoglobin (Bld) [Mass/Vol] 12.6 g/dL Low 13.0-17.0 [facility] Comment on above: Performed By: #### L [id number] #### [facility] ([facility]) [address] [place] [address] Immature granulocytes (Bld) [#/Vol] 0.08 10*3/uL Normal 0.00-0.20 [facility] Comment on above: Performed By: #### L [id number] #### [facility] ([facility]) [address] [place] [address] Immature granulocytes/100 WBC (Bld) 0.6 % Normal 0.0-1.0 [facility] Comment on above: Performed By: #### L [id number] #### [facility] ([facility]) [address] [place] [address] Lymphocytes (Bld) [#/Vol] 0.95 10*3/uL Low 1.20-4.00 [facility] Comment on above: Performed By: #### L [id number] #### [facility] ([facility]) [address] [place] [address] Lymphocytes/100 WBC (Bld) 6.6 % Low 20.0-45.0 [facility] Comment on above: Performed By: #### L [id number] #### [facility] ([facility]) [address] [place] [address] MCH (RBC) [Entitic mass] 28.6 pg Normal 27.0-33.0 [facility] Comment on above: Performed By: #### L [id number] #### [facility] ([facility]) [address] [place] [address] MCV (RBC) [Entitic vol] 86.6 fL Normal 82.0-98.0 [facility] Comment on above: Performed By: #### L [id number] #### [facility] ([facility]) [address] [place] [address] Monocytes (Bld) [#/Vol] 0.96 10*3/uL Normal 0.10-1.00 [facility] Comment on above: Performed By: #### L [id number] #### [facility] ([facility]) [address] [place] [address] Monocytes/100 WBC (Bld) 6.7 % Normal 5.0-12.0 [facility] Comment on above: Performed By: #### L [id number] #### [facility] ([facility]) [address] [place] [address] Neutrophils (Bld) [#/Vol] 12.36 10*3/uL High 1.60-7.60 [facility] Comment on above: Performed By: #### L [id number] #### [facility] ([facility]) [address] [place] [address] Neutrophils/100 WBC (Bld) 86.0 % High 40.0-72.0 [facility] Comment on above: Performed By: #### L [id number] #### [facility] [address] [place] [address] NRBC (PER 100 WBCS) BY AUTOMATED COUNT 0.0 % Normal 0 [facility] Comment on above: Performed By: #### L [id number] #### [facility] [address] [place] [address] PLATELETS (10*3/UL) IN BLOOD AUTOMATED COUNT 236 10*3/uL Normal 150-400 [facility] Comment on above: Performed By: #### L [id number] #### [facility] ([facility]) [address] [place] [address] RBC (Bld) [#/Vol] 4.40 10*6/uL Normal 4.20-5.70 [facility] Comment on above: Performed By: #### L [id number] #### [facility] [address] [place] [address] WBC (Bld) [#/Vol] 14.36 10*3/uL High 4.00-10.60 [facility] Comment on above: Performed By: #### L [id number] #### [facility] [address] [place] [address] DSon 02-05-2024 DS -- Attestation signed by Matt Willis MD at 02/16/2024 9:19 PM By using the attestations below, the signing clinician agrees that I have read and verify that the documentation has been personally reviewed by me and ensure that the documentation accurately reflects the encounter. GC: I performed the davila portion(s) of the service and participated in the management and confirm the resident's documentation. Please note there may be an additional personal documentation from me. Admission Admitted 02/04/2024 for PAF (paroxysmal atrial fibrillatio* Discharge Diagnosis PAF (paroxysmal atrial fibrillation) ([facility]) Discharge Disposition Home or Self Care (01) Discharge Medications Your medication list ASK your doctor about these medications Instructions Last Dose Given Next Dose Due famotidine 20 mg tablet Commonly known as: Pepcid Take 1 tablet (20 mg) by mouth two times daily. lamoTRIgine 100 mg tablet Commonly known as: LaMICtal levothyroxine 25 mcg tablet Commonly known as: Synthroid, Levoxyl losartan 50 mg tablet Commonly known as: Cozaar metoprolol succinate XL 100 mg 24 hr tablet Commonly known as: Toprol-XL omeprazole [address] capsule Commonly known as: PriLOSEC Take 1 capsule (40 mg) by mouth before breakfast. Do not crush or chew. pravastatin 40 mg tablet Commonly known as: Pravachol verapamil SR 180 mg ER tablet Commonly known as: Calan-SR Take 1 tablet (180 mg) by mouth at bedtime. warfarin 5 mg tablet Commonly known as: Coumadin Where to Get Your Medications These medications were sent to [facility] - [place], [place] - [address] [place] [address] [place] [address], [facility] [address] famotidine 20 mg tablet omeprazole [address] capsule Activity Patient currently has no discharge activity orders Diet Patient currently has no discharge diet orders Allergies Patient has no known allergies. Hospital Course Nitza Ibanez is a 63-year-old male patient with past medical history remarkable for paroxysmal atrial fibrillation on warfarin, aortic valve replacement, history of mitral valve replacement, aortic aneurysm repair who underwent pulmonary vein isolation and comprehensive EP study with Dr. Willis, and was admitted post ablation procedure for monitoring. His vascular access was checked today with no abnormalities, plan to discharge patient home with close outpatient follow-up. Pertinent Physical Exam At Time of Discharge Physical Exam Constitutional: General: He is not in acute distress. Appearance: He is not ill-appearing. HENT: Head: Normocephalic and atraumatic. Cardiovascular: Rate and Rhythm: Normal rate and regular rhythm. Heart sounds: Normal heart sounds. No murmur heard. Pulmonary: Effort: No respiratory distress. Breath sounds: Normal breath sounds. No wheezing or rales. Abdominal: Palpations: Abdomen is soft. Tenderness: There is no abdominal tenderness. Musculoskeletal: Cervical back: Normal range of motion and neck supple. Right lower leg: No edema. Left lower leg: No edema. Skin: General: Skin is warm and dry. Capillary Refill: Capillary refill takes less than 2 seconds. Neurological: Mental Status: He is alert and oriented to person, place, and time. Mental status is at baseline. Lab Results Labs Reviewed PROTIME-INR - Abnormal Result Value Protime 24.0 (*) INR 2.20 (*) POCT GLUCOSE METER UNSOLICITED RESULTS - Abnormal Glucose POC 111 (*) Narrative: Waived Testing in the ED is performed under the ED CLIA certificate #[id number]. CBC WITH AUTO DIFFERENTIAL - Abnormal Auto WBC 10.53 RBC 4.72 Hemoglobin 13.5 Hematocrit 40.4 MCV 85.6 MCH 28.6 MCHC 33.4 RDW 13.0 Neutrophils Relative 92.0 (*) Lymphocytes Relative 6.2 (*) Monocytes Relative 0.9 (*) Eosinophils Relative 0.1 Basophils Relative 0.2 Neutrophils Absolute 9.69 (*) Lymphocytes Absolute 0.65 (*) Monocytes Absolute 0.10 Eosinophils Absolute 0.01 Basophils Absolute 0.02 Platelets 222 nRBC % 0.0 Immature Granulocytes Relative 0.6 Immature Granulocytes Absolute 0.06 BASIC METABOLIC PANEL - Abnormal Sodium 134 (*) Potassium 4.0 Chloride 103 CO2 23 BUN 19 Creatinine 0.86 Glucose 141 (*) Calcium 8.5 (*) Anion Gap 12 eGFR 96.7 BUN/Creatinine Ratio 22.1 PROTIME-INR - Abnormal Protime 29.3 (*) INR 2.87 (*) CBC WITH AUTO DIFFERENTIAL - Abnormal Auto WBC 14.36 (*) RBC 4.40 Hemoglobin 12.6 (*) Hematocrit 38.1 (*) MCV 86.6 MCH 28.6 MCHC 33.1 RDW 13.3 Neutrophils Relative 86.0 (*) Lymphocytes Relative 6.6 (*) Monocytes Relative 6.7 Eosinophils Relative 0.0 Basophils Relative 0.1 Neutrophils Absolute 12.36 (*) Lymphocytes Absolute 0.9 (more content not included)... Normal [facility] LACTIC ACID WITH 4 HOUR REFL EXon 02-05-2024 LACTATE (MMOL/L) IN SER/PLAS 2.4 mmol/L High 0.5-2.2 [facility] Comment on above: Performed By: #### L [id number] ####[facility] ([facility])[address] [place] [address] Orders Onlyon 02-05-2024 Orders Only [id number] Indio Ibanez L 1960 M Date Provider Department Center 02/05/20241986-LETI RYAN [facility] Family History Problem Relation Age of Onset Cancer Mother Cancer Father Diabetes Sister Cancer Brother Diabetes Brother Family Status - Relation Status Age at Mother Father Sister Brother Normal [facility] PROTIME-INRon 02-05-2024 INR IN PPP BY COAGULATION ASSAY 2.87 High 0.90-1.10 [facility] Comment on above: Result Comment: ACCC P RECOMMENDED INR FOR WARFARIN THERAPY CONDITION INR PROPHYLAXIS OF VENOUS THROMBOSIS 2-3 (HIGH-RISK SURGERY) TREATMENT OF VENOUS THROMBOSIS 2-3 TREATMENT OF PULMONARY EMBOLISM 2-3 PREVENTION OF SYSTEMIC EMBOLISM: 2-3 ACUTE MYOCARDIAL INFARCTION TISSUE HEART VALVES VALVULAR HEART DISEASE ATRIAL FIBRILLATION RECURRENT SYSTEMIC EMBOLISM MECHANICAL HEART VALVE 2.5-3.5 FROM: ORAL ANTICOAGULANTS. MECHANISM OF ACTION, CLINICAL EFFECTIVENESS, AND OPTIMAL THERAPEUTIC RANGE. CHEST 1995;108:231S-246S. Performed By: #### L [id number] #### [facility] ([facility]) [address] [place] [address] PROTHROMBIN TIME (PT) IN PPP BY COAGULATION ASSAY 29.3 Seconds High 12.3-14.8 [facility] Comment on above: Performed By: #### L [id number] #### [facility] ([facility]) [address] [place] [address] 30on 02-04-2024 30 The patient is Moderately Stable - Low risk of patient condition declining or worsening The patient's goals for the shift include rest/comfort The clinical goals for the shift include VSS,safety Over the shift, the patient did not make progress toward the following goals. Barriers to progression include observation of cath sites. Recommendations to address these barriers include making changes to the treatment plan as needed. Problem: Pain - Adult Goal: Verbalizes/displays adequate comfort level or baseline comfort level Outcome: Progressing Flowsheets (Taken 02/04/20242314) Verbalizes/displays adequate comfort level or baseline comfort level: Encourage patient to monitor pain and request assistance Assess pain using appropriate pain scale Administer analgesics based on type and severity of pain and evaluate response Implement non-pharmacological measures as appropriate and evaluate response Consider cultural and social influences on pain and pain management Problem: Safety - Adult Goal: Free from fall injury Outcome: Progressing Flowsheets (Taken 02/04/20242314) Free from fall injury: Assess patient frequently for physical needs Identify cognitive and physical deficits and behaviors that affect risk of falls [place] fall precautions as indicated by assessment Educate patient/family on patient safety, including physical limitations Instruct patient to call for assistance with activity based on assessment Modify environment to reduce risk of injury Problem: Discharge Planning Goal: Discharge to home or other facility with appropriate resources Outcome: Progressing Flowsheets (Taken 02/04/20242314) Discharge to home or other facility with appropriate resources: Identify barriers to discharge with patient and caregiver Arrange for needed discharge resources and transportation as appropriate Identify discharge learning needs (meds, wound care, etc) Problem: Chronic Conditions and Co-morbidities Goal: Patient's chronic conditions and co-morbidity symptoms are monitored and maintained or improved Outcome: Progressing Flowsheets (Taken 02/04/20242314) Care Plan - Patient's Chronic Conditions and Co-Morbidity Symptoms are Monitored and Maintained or Improved: Monitor and assess patient's chronic conditions and comorbid symptoms for stability, deterioration, or improvement Collaborate with multidisciplinary team to address chronic and comorbid conditions and prevent exacerbation or deterioration Normal [facility] CBC WITH AUTO DIFFERENTIALon 02-04-2024 Basophils (Bld) [#/Vol] 0.02 10*3/uL Normal 0.00-0.20 [facility] Comment on above: Performed By: #### L [id number] #### [facility] (BEAKER) [address] [place] [address] Basophils/100 WBC (Bld) 0.2 % Normal 0.0-1.0 [facility] Comment on above: Performed By: #### L [id number] #### [facility] (BEAKER) [address] [place] [address] Eosinophils (Bld) [#/Vol] 0.01 10*3/uL Normal 0.00-0.50 [facility] Comment on above: Performed By: #### L [id number] #### [facility] (BEAKER) [address] [facility] [place] [address] Eosinophils/100 WBC (Bld) 0.1 % Normal 0.0-6.0 [facility] Comment on above: Performed By: #### L [id number] #### [facility] (BEAKER) [address] [facility] [place] [address] Erythrocyte distribution width (RBC) [Ratio] 13.0 % Normal 11.5-15.0 [facility] Comment on above: Performed By: #### L [id number] #### [facility] (BEAKER) [address] [facility] [place] [address] ERYTHROCYTE MEAN CORPUSCULAR HEMOGLOBIN CONCENTRATION (G/DL) BY AUTOMATED 33.4 g/dL Normal 32.0-35.0 [facility] Comment on above: Performed By: #### L [id number] #### [facility] [address] [place] [address] Hematocrit (Bld) [Volume fraction] 40.4 % Normal 39.0-55.0 [facility] Comment on above: Performed By: #### L [id number] #### [facility] ([facility]) [address] [place] [address] Hemoglobin (Bld) [Mass/Vol] 13.5 g/dL Normal 13.0-17.0 [facility] Comment on above: Performed By: #### L [id number] #### [facility] ([facility]) [address] [place] [address] Immature granulocytes (Bld) [#/Vol] 0.06 10*3/uL Normal 0.00-0.20 [facility] Comment on above: Performed By: #### L [id number] #### [facility] ([facility]) [address] [place] [address] Immature granulocytes/100 WBC (Bld) 0.6 % Normal 0.0-1.0 [facility] Comment on above: Performed By: #### L [id number] #### [facility] ([facility]) [address] [place] [address] Lymphocytes (Bld) [#/Vol] 0.65 10*3/uL Low 1.20-4.00 [facility] Comment on above: Performed By: #### L [id number] #### [facility] ([facility]) [address] [facility] [address] Lymphocytes/100 WBC (Bld) 6.2 % Low 20.0-45.0 [facility] Comment on above: Performed By: #### L [id number] #### [facility] [address] [place] [address] MCH (RBC) [Entitic mass] 28.6 pg Normal 27.0-33.0 [facility] Comment on above: Performed By: #### L [id number] #### [facility] ([facility]) [address] [place] [address] MCV (RBC) [Entitic vol] 85.6 fL Normal 82.0-98.0 [facility] Comment on above: Performed By: #### L [id number] #### [facility] ([facility]) [address] [place] [address] Monocytes (Bld) [#/Vol] 0.10 10*3/uL Normal 0.10-1.00 [facility] Comment on above: Performed By: #### L [id number] #### [facility] ([facility]) [address] [place] [address] Monocytes/100 WBC (Bld) 0.9 % Low 5.0-12.0 [facility] Comment on above: Performed By: #### L [id number] #### [facility] ([facility]) [address] [place] [address] Neutrophils (Bld) [#/Vol] 9.69 10*3/uL High 1.60-7.60 [facility] Comment on above: Performed By: #### L [id number] #### [facility] ([facility]) [address] [place] [address] Neutrophils/100 WBC (Bld) 92.0 % High 40.0-72.0 [facility] Comment on above: Performed By: #### L [id number] #### [facility] ([facility]) [address] [place] [address] NRBC (PER 100 WBCS) BY AUTOMATED COUNT 0.0 % Normal 0 [facility] Comment on above: Performed By: #### L [id number] #### [facility] ([facility]) [address] [place] [address] PLATELETS (10*3/UL) IN BLOOD AUTOMATED COUNT 222 10*3/uL Normal 150-400 [facility] Comment on above: Performed By: #### L [id number] #### [facility] ([facility]) [address] [place] [address] RBC (Bld) [#/Vol] 4.72 10*6/uL Normal 4.20-5.70 [facility] Comment on above: Performed By: #### L [id number] #### [facility] ([facility]) [address] [place] [address] WBC (Bld) [#/Vol] 10.53 10*3/uL Normal 4.00-10.60 [facility] Comment on above: Performed By: #### L [id number] #### [facility] ([facility]) [address] [place] [address] HPon 02-04-2024 [facility] Electrophysiology Consult Note Reason for visit: AF, MVRx2 (rheumatic disease hx?), hx AVR 02/04/24 Pt here for AF ablation. 12/29/23 Patient here for 3 mo follow [...] At one point was being seeing by [facility] for PPM but no PPM placed. [...] 125, triglycerides 162, hemoglobin A1c 5.4 Per [facility] cardiology 09/2020 HISTORY OF PRESENT ILLNESS: Mr. [...] Determinants of Health Tobacco Use: Low Risk (02/04/2024) Patient History Smoking Tobacco Use: Never Smokeless Tobacco Use: Never Passive Exposure: Not on file Alcohol Use: Not on file Financial Resource Strain: Low Risk (09/26/2019) Received from [employer] [employer] Overall Financial Resource Strain (CARDIA) Difficulty of Paying Living Expenses: Not hard at all Food Insecurity: Not on file Transportation Needs: No Transportation Needs (09/26/2019) Received from [employer], [employer] PRAPARE - Transportation Lack of Transportation (Medical): No Lack of Transportation (Non-Medical): No Physical Activity: Sufficiently Active (09/26/2019) Received from [employer], [employer] Exercise Vital Sign Days of Exercise per Week: 2 days Minutes of Exercise per Session: 150+ min Stress: No Stress Concern Present (09/26/2019) Received from [employer] [place] [employer] - Occupational Stress Questionnaire Feeling of Stress : Only a little Social Connections: Moderately Integrated (09/26/2019) Received from [employer] Social Connection and Isolation Panel [NHANES] Frequency of (more content not included)... Normal [facility] POCT ACTIVATED CLOTTING TIME UNSOLICITED RESULTSon 02-04-2024 POC ACTIVATED CLOTTING TIME 119 sec Normal 82-152 [facility] Comment on above: Performed By: #### L [id number] ####[facility] (BEAKER)[address] [place] [address] POCT GLUCOSE METER UNSOLICIT ED RESULTSon 02-04-2024 Glucose [Mass/Vol] 111 mg/dL High 70-105 [facility] Comment on above: Order Comment: Waive d Testing in the ED is performed under the ED CLIA certificate #[id number]. Result Comment: ngro clarisa Performed By: #### L [id number] #### [facility] (BEAKER) [address] [place] [address] PROTIME-INRon 02-04-2024 INR IN PPP BY COAGULATION ASSAY 2.20 High 0.90-1.10 [facility] Comment on above: Result Comment: ACCC P RECOMMENDED INR FOR WARFARIN THERAPY CONDITION INR PROPHYLAXIS OF VENOUS THROMBOSIS 2-3 (HIGH-RISK SURGERY) TREATMENT OF VENOUS THROMBOSIS 2-3 TREATMENT OF PULMONARY EMBOLISM 2-3 PREVENTION OF SYSTEMIC EMBOLISM: 2-3 ACUTE MYOCARDIAL INFARCTION TISSUE HEART VALVES VALVULAR HEART DISEASE ATRIAL FIBRILLATION RECURRENT SYSTEMIC EMBOLISM MECHANICAL HEART VALVE 2.5-3.5 FROM: ORAL ANTICOAGULANTS. MECHANISM OF ACTION, CLINICAL EFFECTIVENESS, AND OPTIMAL THERAPEUTIC RANGE. CHEST 1995;108:231S-246S. Performed By: #### L [id number] #### [facility] (BEAKER) [address] [place] [address] PROTHROMBIN TIME (PT) IN PPP BY COAGULATION ASSAY 24.0 Seconds High 12.3-14.8 [facility] Comment on above: Performed By: #### L [id number] #### [facility] (BEAKER) [address] [place] [address] Prep for Procedureon 024 Prep for Procedure [id number] Indio Ibanez as L 1960 M Date Provider Department Center 02/04/20241986-[facility] Family History Problem Relation Age of Onset Cancer Mother Cancer Father Diabetes Sister Cancer Brother Diabetes Brother Family Status - Relation Status Age at Mother Father Sister Brother Normal [facility] Orders Onlyon 02-02-2024 Orders Only [id number] Indio Ibanez as L 1960 M Date Provider Department Center 02/02/2024 [facility] [place] [facility] Family History Problem Relation Age of Onset Cancer Mother Cancer Father Diabetes Sister Cancer Brother Diabetes Brother Family Status - Relation Status Age at Mother Father Sister Brother Normal [facility] Office Visiton 01-26-2024 Follow-up visit [id number] Indio Ibanez as L 1960 M Date Provider Department Center 01/26/2024 MATT STANFORD SAMUEL [facility] Family History Problem Relation Age of Onset Cancer Mother Cancer Father Diabetes Sister Cancer Brother Diabetes Brother Family Status - Relation Status Age at Mother Father Sister Brother Level of Service:52468 MO OFFICE/OUTPATIENT ESTABLISHED MOD MDM 30 MIN Normal [facility] Prep for Procedureon 024 Prep for Procedure [id number] Indio Ibanez as L 1960 M Date Provider Department Center 12/31/2023 1987-[facility] [place] [facility] Family History Problem Relation Age of Onset Cancer Mother Cancer Father Diabetes Sister Cancer Brother Diabetes Brother Family Status - Relation Status Age at Mother Father Sister Brother Normal [facility] Office Visiton 12-29-2023 Follow-up visit [id number] Indio Ibanez as L 1960 M Date Provider Department Center 12/29/2023 MATT STANFORD SAMUEL [facility] Family History Problem Relation Age of Onset Cancer Mother Cancer Father Diabetes Sister Cancer Brother Diabetes Brother Family Status - Relation Status Age at Mother Father Sister Brother Level of Service:91487 MO OFFICE/OUTPATIENT ESTABLISHED HIGH MDM 40 MIN Normal [facility] Office Visiton 09-29-2023 Follow-up visit [id number] Indio Ibanez as L 1960 M Date Provider Department Center 09/29/2023 MATT STANFORD SAMUEL [facility] Family History Problem Relation Age of Onset Cancer Mother Cancer Father Diabetes Sister Cancer Brother Diabetes Brother Family Status - Relation Status Age at Mother Father Sister Brother Level of Service:66757 MO OFFICE/OUTPATIENT ESTABLISHED LOW MDM 20 MIN Normal [facility] HPon 06-22-2023 [facility] Electrophysiology Consult Note Reason for visit: AF, [...] At one point was being seeing by [facility] EP for PPM but no PPM placed. [...] 125, triglycerides 162, hemoglobin A1c 5.4 Per [facility] cardiology 09/2020 HISTORY OF PRESENT ILLNESS: Mr. [...] on file Intimate Partner Violence: Unknown (04/10/2023) [place] Safety & Environment Fear of Current or [...] Gener (more content not included)... Normal [facility] NURSNOTEon 06-22-2023 NURSNOTE RN educated pt on d/ c instructions. RN encouraged pt to voice any questions or concerns. Pt verbalizes no questions or concerns at this time. Pt was wheeled off of unit with all of belongings. Normal [facility] Office Visiton 06-02-2023 Follow-up visit [id number] Indio Ibanez as L 1960 M [facility] Provider Department Center 06/02/2023 [facility] Family History Problem Relation Age of Onset Cancer Mother Cancer Father Diabetes Sister Cancer Brother Diabetes Brother Family Status - Relation Status Age at Mother Father Sister Brother Level of Service:38015 MO OFFICE/OUTPATIENT NEW MODERATE MDM 45 MINUTES [facility] 36on 04-17-2023 36 He can restart his toprol XL 100mg once daily only Normal [facility] Office Visiton 04-15-2023 Follow-up visit [id number] Indio Ibanez L 1960 M [facility] Provider Department Center 04/15/2023 HONORIO SEGUNDO SAMUEL [facility] Family History Problem Relation Age of Onset Cancer Mother Cancer Father Diabetes Sister Cancer Brother Diabetes Brother Family Status - Relation Status Age at Mother Father Sister Brother Level of Service:21638 MO OFFICE/OUTPATIENT NEW MODERATE MDM 45 MINUTES Reason for Visit and Comments: New Patient [632] - A Fib Normal [facility] CBC AUTO DIFFon 12-14-2021 BASO # 0.0 103/ul Normal 0.0-0.1 [facility] Comment on above: Performed By: #### C BC #### [facility] [address] [address] [address] Pérez Mg Basophils/100 WBC (Bld) 0.6 % Normal 0.2-2.0 [facility] Comment on above: Performed By: #### C BC #### [facility] [address] [address] [address] Pérez Mg EO # 0.5 103/ul Normal 0.0-0.7 [facility] Comment on above: Performed By: #### C BC #### [facility] [address] [address] [address] Pérez Mg Eosinophils/100 WBC (Bld) 8.6 % Critically high 0.9-7.0 [facility] Comment on above: Performed By: #### C BC #### [facility] [address] [place] [address] Dr. Pérez Mg Erythrocyte distribution width (RBC) [Ratio] 13.2 % Normal 11.0-15.0 [facility] Comment on above: Performed By: #### C BC #### [facility] [address] [place] [address] Dr. Pérez Mg Hematocrit (Bld) [Volume fraction] 43.2 % Normal 42.0-54.0 [facility] Comment on above: Performed By: #### C BC #### [facility] [address] [place] [address] Dr. Pérez Mg Hemoglobin (Bld) [Mass/Vol] 14.6 g/dL Normal 14.0-18.0 [facility] Comment on above: Performed By: #### C BC #### [facility] [address] [place] [address] Dr. Pérez Mg IG # 0.06 10e3/ul Critically high 0.00-0.03 [facility] Comment on above: Performed By: #### C BC #### [facility] [address] [place] [address] Dr. Pérez Mg IG % 1.0 % Critically high 0.0-0.5 [facility] Comment on above: Performed By: #### C BC #### [facility] [address] [place] [address] Dr. Pérez Mg LYMPH # 1.1 103/ul Critically low 1.2-3.8 [facility] Comment on above: Performed By: #### C BC #### [facility] [address] [place] [address] Dr. Pérez Mg Lymphocytes/100 WBC (Bld) 17.5 % Critically low 20.5-60.0 [facility] Comment on above: Performed By: #### C BC #### [facility] [address] [place] [address] Dr. Pérez Mg MANUAL DIFF REQ NO Normal [facility] Comment on above: Performed By: #### C BC #### [facility] [address] [place] [address] Dr. Pérez Mg MCH (RBC) [Entitic mass] 29.0 pg Normal 25.9-34.0 [facility] Comment on above: Performed By: #### C BC #### [facility] [address] [place] [address] Dr. Pérez Mg MCHC (RBC) [Mass/Vol] 33.8 g/dL Normal 29.9-35.2 [facility] Comment on above: Performed By: #### C BC #### [facility] [address] [place] [address] Dr. Pérez Mg MCV (RBC) [Entitic vol] 85.9 fL Normal 80.0-94.0 [facility] Comment on above: Performed By: #### C BC #### [facility] [address] [place] [address] Dr. Pérez Mg MONO # 0.5 103/ul Normal 0.3-0.8 [facility] Comment on above: Performed By: #### C BC #### [facility] [address] [place] [address] Dr. Pérez Mg Monocytes/100 WBC (Bld) 8.3 % Normal 1.7-12.0 [facility] Comment on above: Performed By: #### C BC #### [facility] [address] [place] [address] Dr. Pérez Mg NEUT # 4.0 103/ul Normal 1.4-6.5 [facility] Comment on above: Performed By: #### C BC #### [facility] [address] [place] [address] Dr. Pérez Mg Neutrophils/100 WBC (Bld) 64.0 % Normal 43.0-75.0 [facility] Comment on above: Performed By: #### C BC #### [facility] [address] [address] [address] Pérez Mg Platelet mean volume (Bld) [Entitic vol] 9.1 fL Critically low 9.5-13.5 [facility] Comment on above: Performed By: #### C BC #### [facility] [address] [address] [address] Pérez Mg PLT 213 103/ul Normal 150-450 [facility] Comment on above: Performed By: #### C BC #### [facility] [address] [address] [address] Pérez Mg RBC 5.03 106/ul Normal 4.70-6.10 [facility] Comment on above: Performed By: #### C BC #### [facility] [address] [place] [address] Dr. Pérez Mg WBC 6.3 103/ul Normal 4.0-11.0 [facility] Comment on above: Performed By: #### C BC #### [facility] [address] [place] [address] Dr. Pérez Mg GLYCOHEMOGLOBIN A1Con 2021 ADA RECOMMENDATION SEE BELOW Normal [facility] Comment on above: Result Comment: ADA RECOMMENDED LIMIT 4.0 - 6.0 ADA THERAPEUTIC TARGET < 7.0 ACTION SUGGESTED > 7.0 Performed By: #### A 1C #### [facility] [address] [place] [address] Dr. Pérez Mg Glucose [Mass/Vol] 105 mg/dL Normal [facility] Comment on above: Performed By: #### A 1C #### [facility] [address] [place] [address] Dr. Pérez Mg HbA1c (Bld) [Mass fraction] 5.3 % Normal 4.5-6.2 [facility] Comment on above: Performed By: #### A 1C #### [facility] [address] [place] [address] Dr. Pérez Mg LIPID PROFILEon 12-14-2021 CHOL-HDL RATIO NORM SEE BELOW Normal [facility] Comment on above: Result Comment: 3.3 - 4.4 LOW RISK 4.4 - 7.1 AVERAGE RISK 7.1 - 11.0 MODERATE RISK >11.0 HIGH RISK Performed By: #### L IPID, CMP #### [facility] [address] [address] [address] Pérez Mg Cholesterol [Mass/Vol] 201 mg/dL Critically high <=200 [facility] Comment on above: Performed By: #### L IPID, CMP #### [facility] [address] [address] [address] Pérez Mg Cholesterol in HDL [Mass/Vol] 41 mg/dL Normal 40-60 [facility] Comment on above: Performed By: #### L IPID, CMP #### [facility] [address] [place] [address] Dr. Pérez Mg Cholesterol in LDL [Mass/Vol] 122.8 mg/dL Normal [facility] Comment on above: Performed By: #### L IPID, CMP #### [facility] [address] [place] [address] Dr. Pérez Mg Cholesterol.total/Ch olesterol in HDL [Mass ratio] 4.9 {ratio} Normal [facility] Comment on above: Performed By: #### L IPID, CMP #### [facility] [address] [place] [address] Dr. Pérez Mg HDL NORMAL > or = 60 mg/dl - LO W CARDIOVASCULAR RISK <40 mg/dl - HIGH CARDIOVASCULAR RISK Normal [facility] Comment on above: Performed By: #### L IPID, CMP #### [facility] [address] [place] [address] Dr. Pérez Mg LDL CALC NORMAL SEE BELOW Normal [facility] Comment on above: Result Comment: <100 mg/dl OPTIMAL 100 - 129 mg/dl NEAR OR ABOVE OPTIMAL 130 - 159 mg/dl BORDERLINE HIGH 160 - 189 mg/dl HIGH >190 mg/dl VERY HIGH Performed By: #### L IPID, CMP #### [facility] [address] [place] [address] Dr. Pérez Mg Triglyceride [Mass/Vol] 186 mg/dL Critically high <=150 [facility] Comment on above: Performed By: #### L IPID, CMP #### [facility] [address] [address] [address] Pérez Mg VLDL CALC 37.2 mg/dL Normal [facility] Comment on above: Performed By: #### L IPID, CMP #### [facility] [address] [address] [address] Pérez Mg PROF 14(COMP METB)on 022 Albumin [Mass/Vol] 3.9 g/dL Normal 3.4-5.0 [facility] Comment on above: Performed By: #### L IPID, CMP #### [facility] [address] [address] [address] Pérez Mg Albumin/Globulin [Mass ratio] 1.1 {ratio} Normal [facility] Comment on above: Performed By: #### L IPID, CMP #### [facility] [address] [address] [address] Pérez Mg ALP [Catalytic activity/Vol] 65 U/L Normal 46-116 [facility] Comment on above: Performed By: #### L IPID, CMP #### [facility] [address] [place] [address] Dr. Pérez Mg ALT [Catalytic activity/Vol] 41 U/L Normal 16-63 [facility] Comment on above: Performed By: #### L IPID, CMP #### [facility] [address] [address] [address] Pérez Mg Anion gap [Moles/Vol] 10.3 mmol/L Normal [facility] Comment on above: Performed By: #### L IPID, CMP #### [facility] [address] [address] [address] Pérez Mg AST [Catalytic activity/Vol] 33 U/L Normal 15-37 [facility] Comment on above: Performed By: #### L IPID, CMP #### [facility] [address] [place] [address] Dr. Pérez Mg Bilirubin [Mass/Vol] 0.5 mg/dL Normal 0.2-1.0 [facility] Comment on above: Performed By: #### L IPID, CMP #### [facility] [address] [place] [address] Dr. Pérez Mg Calcium [Mass/Vol] 9.0 mg/dL Normal 8.5-10.1 [facility] Comment on above: Performed By: #### L IPID, CMP #### [facility] [address] [place] [address] Dr. Pérez Mg Chloride [Moles/Vol] 103 mmol/L Normal 98-107 [facility] Comment on above: Performed By: #### L IPID, CMP #### [facility] [address] [place] [address] Dr. Pérez Mg CO2 [Moles/Vol] 27.7 mmol/L Normal 21.0-32.0 [facility] Comment on above: Performed By: #### L IPID, CMP #### [facility] [address] [place] [address] Dr. Pérez Mg Creatinine [Mass/Vol] 0.73 mg/dL Normal 0.70-1.30 [facility] Comment on above: Performed By: #### L IPID, CMP #### [facility] [address] [place] [address] Dr. Pérez Mg EGFR-AF EGYPTIAN >60 Normal >=60 [facility] Comment on above: Performed By: #### L IPID, CMP #### [facility] [address] [place] [address] Dr. Pérez Mg EGFR-NON AF EGYPTIAN >60 Normal >=60 [facility] Comment on above: Performed By: #### L IPID, CMP #### [facility] [address] [place] [address] Dr. Pérez Mg Globulin (S) [Mass/Vol] 3.6 g/dL Normal [facility] Comment on above: Performed By: #### L IPID, CMP #### [facility] [address] [place] [address] Dr. Pérez Mg Glucose [Mass/Vol] 110 mg/dL Critically high 74-106 [facility] Comment on above: Performed By: #### L IPID, CMP #### [facility] [address] [place] [address] Dr. Pérez Mg Potassium [Moles/Vol] 4.0 mmol/L Normal 3.5-5.1 [facility] Comment on above: Performed By: #### L IPID, CMP #### [facility] [address] [place] [address] Dr. Pérez Mg Protein [Mass/Vol] 7.5 g/dL Normal 6.4-8.2 [facility] Comment on above: Performed By: #### L IPID, CMP #### [facility] [address] [place] [address] Dr. Pérez Mg Sodium [Moles/Vol] 137 mmol/L Normal 136-145 [facility] Comment on above: Performed By: #### L IPID, CMP #### [facility] [address] [place] [address] Dr. Pérez Mg Urea nitrogen [Mass/Vol] 16.0 mg/dL Normal 7.0-18.0 [facility] Comment on above: Performed By: #### L IPID, CMP #### [facility] [address] [place] [address] Dr. Pérez Mg Urea nitrogen/Creatinine [Mass ratio] 21.9 mg/mg Normal [facility] Comment on above: Performed By: #### L IPID, CMP #### [facility] [address] [place] [address] Dr. [facility] Telephone (CARDMN) NITZA IBANEZ ([id number]) 1960 M Date Time Provider Department 01/28/21 LUNA, SHAQ K CARDMN During your visit today, we recorded the following information about you: Ha Silveira 01/28/2021 2:35 PM Signed Outside medical records uploaded to [employer]: CT/OT - CTA chest with contrast - 11/07/2020 Allergies As of Date: 01/28/2021 (No Known Allergies) Date Reviewed: 09/26/2020 Reviewed by: Macarena Payton MD - Fully Assessed Reason for Visit: Received Outside Medical Records [[id number]] Cmt: CT/OT - CTA Chest with Contrast [...] mouth daily as directed. As directed by [facility] coumadin [facility]. - levothyroxine (SYNTHROID) 25 mcg [...] Encounter Status:Closed by ANA FRAZIER on 01/28/21 [facility] CNOVon 09-26-2020 CNOV Office Visit (CITLALLI ) NITZA IBANEZ ([id number]) 1960 M Date Time Provider Department 09/26/20 12:30 PM NIMO ALTMAN During your visit today, we recorded the following information about you: Pulse Respiration Blood pressure Weight 63/minute 12/minute 176/72 69.4 kg Height 1.778 m Nimo Altman MD 10/24/2020 11:55 AM Addendum [facility] [place] [facility] Department of Cardiovascular Medicine SECTION OF CARDIOVASCULAR IMAGING OUTPATIENT VISIT DATE September 26, 2020 OUTPATIENT VISIT TYPE NEW PRIMARY CARE PHYSICIAN: Nehemiah Jimenez MD [facility] [place] [address] REFERRING PHYSICIAN: Shaq Luna [address] [place] [id number] CHIEF COMPLAINT: Valvular heart disease HISTORY OF [...] Headache, Impai (more content not included)... Normal [facility] CNOVon 07-26-2020 CNOV Office Visit (CARDMN ) NITZA IBANEZ ([id number]) 1960 M Date Time Provider Department 07/26/20 [...] fibrillation, sudden deaths. 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 . Daughter A AND W. 2 grandchildren. Lives in [place], [place]. Habits: Tobacco: none. Alcohol: never. Caffeine: [...] paralysis-No, Numbness-No, (more content not included)... Normal [facility] Leila [facility]2020 [facility] (CARDMN[facility] NITZA IBANEZ ([id number]) 1960 M Date Time Provider Department 07/20/20 SHAQ LUNA During your visit today, we recorded the following information about you: Ha Duvall 07/20/2020 4:14 PM Signed Outside medical records scanned into [employer]. Patient scheduled to see Dr. Shaq Luna on July 26, 2020. Allergies As of Date: 07/20/2020 (Not on File) Date Reviewed: Never Reviewed Reason for Visit: Received Outside Medical Records [[id number]] Problem List As Of Date: 07/20/2020 (None) Encounter Status:Closed by HA VALLES on 07/20/20 [facility] CNCOon 07-05-2020 CNCO Letter Text [facility] CNPNon 06-26-2020 CNPN Telephone (REFPHY) NITZA IBANEZ ([id number]) 1960 M Date Time Provider Department 06/26/20 NO PCP (HISTORICAL) REFPHY During your visit today, we recorded the following information about you: Aj Saez 06/26/2020 12:18 PM Signed Patient: Nitza Ibanez Date of : 1960 Patient phone number: [phone] Referring Provider for the encounter: Nehemiah Jimenez Requesting Provider: Someone that specializes in Valve Disease Reason for requesting visit (RFV/signs and symptoms/diagnosis): Bradycardia, tachycardia Person calling: self Return call to: self Medical Records/Insurance Card scanned into [employer]: Yes Comments: Valve Replacement X2 Allergies As of Date: 06/26/2020 (Not on File) Date Reviewed: Never Reviewed Reason for Visit: External Referrals/resources [909] Problem List As Of Date: 06/26/2020 (None) Encounter Status:Closed by AJ SAEZ on 06/26/20 Normal [facility] Complete Blood Count Auto Di ffon 05-28-2018 Basophils #/vol (Bld) 0.0 10*3/uL Normal 0.0-0.2 [facility] Comment on above: Order Comment: Comme nt send tubes to 210 Result Comment: PERF ORMED BY: [place] [id number] PATHOLOGIST PHYSICAL TESTING SUPERVISOR LESLYE GONZALEZ M.D. Performed By: #### C BC #### [facility] [address] [place] [address] Basophils/100 WBC (Bld) 0.7 % Normal . [facility] Comment on above: Order Comment: Comme nt send tubes to 210 Performed By: #### C BC #### [facility] [address] [place] [address] Eosinophils #/vol (Bld) 0.3 10*3/uL Normal 0.0-0.45 [facility] Comment on above: Order Comment: Comme nt send tubes to 210 Performed By: #### C BC #### [facility] [address] [place] [address] Eosinophils/100 WBC (Bld) 6.0 % Normal . [facility] Comment on above: Order Comment: Comme nt send tubes to 210 Performed By: #### C BC #### [facility] [address] [place] [address] Erythrocyte distribution width Ratio (RBC) 14.1 % Normal 12.0-14.8 [facility] Comment on above: Order Comment: Comme nt send tubes to 210 Performed By: #### C BC #### [facility] [address] [place] [address] Hematocrit Volume Fraction (Bld) 44.5 % Normal 38.8-50.0 [facility] Comment on above: Order Comment: Comme nt send tubes to 210 Performed By: #### C BC #### [address] Hemoglobin mass conc (Bld) 15.1 g/dL Normal 13.0-17.0 [facility] Comment on above: Order Comment: Comme nt send tubes to 210 Performed By: #### C BC #### [address] Lymphocytes #/vol (Bld) 0.7 10*3/uL Low 1.00-4.8 [facility] Comment on above: Order Comment: Comme nt send tubes to 210 Performed By: #### C BC #### [address] Lymphocytes/100 WBC (Bld) 11.9 % Normal . [facility] Comment on above: Order Comment: Comme nt send tubes to 210 Performed By: #### C BC #### [address] MCH Entitic mass (RBC) 33.9 g/dL Normal 32.5-35.6 [facility] Comment on above: Order Comment: Comme nt send tubes to 210 Performed By: #### C BC #### [address] MCH Entitic mass (RBC) 28.8 pg Normal 27.5-35.2 [facility] Comment on above: Order Comment: Comme nt send tubes to 210 Performed By: #### C BC #### [address] MCV Entitic volume (RBC) 85.0 fL Normal 83.5-101 [facility] Comment on above: Order Comment: Comme nt send tubes to 210 Performed By: #### C BC #### [address] Monocytes #/vol (Bld) 0.7 10*3/uL Normal 0.0-0.8 [facility] Comment on above: Order Comment: Comme nt send tubes to 210 Performed By: #### C BC #### [address] [place] [address] [place] Monocytes/100 WBC (Bld) 11.8 % Normal . [facility] Comment on above: Order Comment: Comme nt send tubes to 210 Performed By: #### C BC #### [facility] [address] Neutrophils #/vol (Bld) 3.9 10*3/uL Normal 1.8-7.7 [facility] Comment on above: Order Comment: Comme nt send tubes to 210 Performed By: #### C BC #### [facility] [address] [place] [address] Neutrophils/100 WBC (Bld) 69.6 % Normal . [facility] Comment on above: Order Comment: Comme nt send tubes to 210 Performed By: #### C BC #### [facility] [address] [place] [address] Nucleated RBC/100 WBC Ratio (Bld) 0.0 % Normal 0-0.5 [facility] Comment on above: Order Comment: Comme nt send tubes to 210 Performed By: #### C BC #### [facility] [address] [place] [address] Platelet mean volume Entitic volume (Bld) 7.4 fL Normal 6.6-10.1 [facility] Comment on above: Order Comment: Comme nt send tubes to 210 Performed By: #### C BC #### [facility] [address] [place] [address] Platelets #/vol (Bld) 237 10*3/uL Normal 150-450 [facility] Comment on above: Order Comment: Comme nt send tubes to 210 Performed By: #### C BC #### [facility] [address] [place] [address] [place] RBC #/vol (Bld) 5.24 10*6/uL Normal 3.90-5.60 [facility] Comment on above: Order Comment: Comme nt send tubes to 210 Performed By: #### C BC #### [facility] [address] [place] [address] [place] WBC #/vol (Bld) 5.6 10*3/uL Normal 4.1-10.5 [facility] Comment on above: Order Comment: Javon alejo send tubes to 210 Performed By: #### C #### [facility] [address] [place] [address] [facility] James 05-28-2018 L -- ---- Specimen: [id number] Received: 05/28/18 Status: CAIO Scott Num: [id number] Spec Type: Surgical Subm Dr: Jim Jules Jr, DO Tissues: A Colon - Polyp (SIGMOID POLYP) Procedures: HE Stain/2, Gross/Micro L4 ---- Patient Age/Sex Location Account Attending Physician ---- Nitza Ibanez/M [id number] Jim Jules Jr, DO ---- SPEC NUM: RECD: 05/28/18 STATUS: CAIO SCOTT NUM: [id number] MARITO: 05/28/18 [facility] DR: Jim Jules Jr, DO ENTERED: 05/28/18 [facility] DR: SPEC TYPE: Surgical DEPT: S [...] microscopic findings support the above pathologic diagnosis. [id number] A. - - SIGMOID POLYP ---- ---- Specimen: Received: 05/28/18 Status: CAIO Sonia Num: [id number] Spec Type: Surgical Subm Dr: Jim Jules Jr, DO Tissues: A Colon - Polyp (SIGMOID POLYP) Procedures: HE Stain/2, Gross/Micro L4 ---- Patient: Nitza Ibanez [id number] (Continued) ---- Signed (signature on file) Leslye Gonzalez MD 05/31/18 1553 Normal [facility] Partial Thromboplastin Timeo n 05-28-2018 aPTT Coag time (Bld) 40.4 s High 23.0-35.0 [facility] Comment on above: Order Comment: Javon alejo send tubes to 210 Result Comment: PERF ORMED BY: [place] [address] PATHOLOGIST PHYSICAL TESTING SUPERVISOR LESLYE GONZALEZ M.D. Performed By: #### P T, PTT #### [address] Prothrombin Time INRon 05-28 INR Coag RelTime (PPP) 1.4 {INR} Normal [facility] Comment on above: Order Comment: Javon alejo send tubes to 210 Result Comment: INR [...] #### P T, PTT #### [facility] [address] [id number] [facility] Prothrombin time (PT) Coag time (PPP) 16.4 s High 9.0-12.9 [facility] Comment on above: Order Comment: Comme nt send tubes to 210 Performed By: #### P T, PTT #### [facility] [address] [id number] [facility] Encounters Encounter Date Encounter Type Care Provider Facility Start: 03-01-2024 ambulatory Kevin FRANCO Facility : [place] Start: 02-26-2024 ambulatory [facility] Start: 02-04-2024 Evaluation and manag ement of inpatient [facility] Start: 02-04-2024 ambulatory [facility] Start: 02-04-2024 End: 02-05-2024 Evaluation and management of inpatient [facility] Start: 01-26-2024 End: 01-26-2024 ambulatory [facility] Start: 01-08-2024 ambulatory [facility] Start: 12-29-2023 End: 12-29-2023 ambulatory [facility] Start: 12-28-2023 ambulatory [facility] Start: 12-21-2023 ambulatory [facility] Start: 11-18-2023 ambulatory JUAN CROFT [facility] Start: 10-21-2023 End: 10-21-2023 Bamboo flowsheet Macarena Garcia DO Work Phone: [facility] Start: 10-21-2023 End: 10-21-2023 Bamboo flowsheet Macarena Garcia DO [facility] Start: 10-21-2023 End: 10-21-2023 ambulatory MACARENA GARCIA Not Available Start: 10-21-2023 End: 10-21-2023 Office consultation new/estab patient 60 min Macarena Nickie DO Work Phone: [facility] Comment on above: Primary insomnia (Pr imary Dx); ANNETTE (obstructive sleep apnea); Hypoxia; Hypersomnia; Inadequate sleep hygiene; Snoring; Atrial fibrillation, unspecified type (CMS/HCC) Start: 10-20-2023 ambulatory [facility] Start: 09-29-2023 End: 09-30-2023 ambulatory [facility] Start: 08-11-2023 ambulatory [facility] Start: 06-22-2023 End: 06-22-2023 ambulatory [facility] Start: 06-02-2023 End: 06-02-2023 ambulatory [facility] Start: 04-15-2023 End: 04-15-2023 ambulatory [facility] Start: 11-05-2022 Refill Shaq Amezcua Work Phone: Cardiology Comment on above: Refill Request Start: 12-18-2021 Encounter for genera l adult medical examination without abnormal findings DR NEHEMIAH JIMENEZ [facility] Start: 12-14-2021 End: 12-15-2021 ambulatory [...] Comment on above: Performed By: #### P [facility] #### [facility] [address] [place] [address] Dr. Pérez gM Plan of Treatment Date Care Activity Detail Author Start: 11-08-2024 End: 11-08-2024 Patient encounter procedure 11/08/2024 3:00 PM EDT [facility] [address] [place] [id number] Macarena Garcia DO [address] [place] [address] [facility] Start: 10-21-2023 End: 10-20-2024 Pulse oximetry, overnight Pulse oximetry, overnight Respiratory Care Routine Primary insomnia Expected: 10/21/2023 (Approximate), Expires: 10/20/2024 [facility] Work Phone: Comment on above: Expected: 10/21/2023 (Approximate), Expires: 10/20/2024 Start: 10-18-2023 Influenza vaccination Influenza Vacc ine (#1) [facility] Start: 10-17-2022 Influenza vaccination Influenza Vacc ine (#1) [facility] Start: 02-16-2022 Depression Assessment Depression Ass essment [facility] Start: 10-17-2021 Influenza vaccination INFLUENZA (#1) [facility] Start: 06-18-2020 COVID-19 VACCINE (2 - Booster for Rowdy series) COVID-19 VACCINE (2 - Booster for Rowdy series) [facility] Start: 2014 PROSTATE CANCER SCREENING DISCUSSION PROSTATE CANCER SCREENING DISCUSSION [facility] Start: 2009 SHINGRIX VACCINE (1 of 2) SHINGRIX VACCINE (1 of 2) [facility] Start: 2004 COLOGUARD (FIT-DNA) COLOGUARD (FIT-D NA) [facility] Start: 2004 Colonoscopy COLONOSCOPY [facility] Start: 2004 COLORECTAL CANCER SCREENING COLORECTAL CANCER SCREENING [facility] Start: [address] COLONOGRAPHY [facility] Start: 2004 DIABETES SCREEN DIABETES SCREEN [facility] Start: 2004 Diabetes Screening Diabetes Screenin g [facility] Start: 2004 FECAL OCCULT BLOOD FECAL OCCULT BLOO D [facility] Start: 2004 SIGMOIDOSCOPY SIGMOIDOSCOPY [facility] Start: 1994 Lipid 1996 panel - S brandon or Plasma Lipid Screening [facility] Start: 1994 LIPID SCREEN LIPID SCREEN [facility] Start: 1978 Urine microalbumin profile [facility] Start: 1977 ANNUAL PCP TEAM BRAID PATTERN SETTER ALAN DISEASE VISIT ANNUAL PCP TEAM CHRONIC DISEASE VISIT [facility] Start: 1977 BP CONTROLLED (<130/80) BP CONTROLLE D (<130/80) [facility] Start: 1977 HEPATITIS C SCREENING HEPATITIS C SC REENING [facility] Start: 1977 HIV SCREENING HIV SCREENING [facility] Start: 1971 Adult depression screening assessment DEPRESSION SCREENING [facility] Start: 1960 Screening for malign ant neoplasm of colon [facility] Immunizations Immunization Date Immunization Notes Care Provider Alison franco 12-28-2019 influenza virus vacc ine, unspecified formulation Shaq Luna MD Work Phone: [facility] Payers Date Payer Category Payer Unknown [id number] 2023 Unknown [id number] 2020 Unknown [id number] 2013 Unknown [facility] [id number] 2013-Present O [id number] 1960 Unknown [id number] 1960 Unknown [id number] 1959 Unknown [id number] 1960 Unknown [id number] 1960 Self-pay 1960 Unknown [id number] Social History Date Type Detail [facility] Start: 1960 Sex Assigned At Not on file [facility] Start: 07-26-[address] [facility] Never smoked tobacco [facility] Work Phone: Start: 07-26-2020 Tobacco use and exposure Smokeless tobacco non-user [facility] Work Phone: Start: 09-26-2020 Alcohol intake Lifetime non-d jose e (finding) [facility] Start: 07-26-2020 History SDOH Alcohol Frequency 1 [facility] Start: 07-26-2020 End: 09-26-2020 History of Social function [facility] Start: 07-26-2020 End: 09-26-2020 Tobacco use panel [facility] National Score (1-100), lower number is lower risk Not on file [facility] Tobacco smoking stat [facility] Tobacco smoking consumption unknown [facility] Clinical Notes 06-26-2020 to 02-04-2024 Macarena Garcia DO - 10/21/2023 1:30 PM EDTTelephone Encounter - Mary Fowler - 11/05/2022 9:55 AM EDTTelephone Encounter - Ha Silveira - 09/25/2021 7:16 AM EDT Note Date & Type Note Facility 02-04-2024 Note Treatment Plan: Patient was seen at bedside by me. He appeared to be in no acute distress, resting in bed. He is hemodynamically stable. Right groin access site appeared to be clean, no oozing, bleeding, or bruising noted. Mild tenderness to deep palpation. Will keep gauze and dressing on access site over night. Signed, Kathryn Fleming MD PGY-4 [employer]ishing [employer]el [employer] [facility] Pager: [phone] [facility] 02-04-2024 Note 02/04/241814 Provider Notification Reason for Communication Change in status Provider Name Cardiology Method of Communication Page Response Waiting for response Notification Time 1815 Communication Comments Patient developing swelling around right cath site. Oozing prsent when pushing on swelling RN in at bedside to complete cath check and noticed swelling on the right groin where the right fem was accessed during the cath. Area was soft, but was swollen, painful upon touch and pressure, and new bleeding noted on dressing. utility engineer Victorina reyes at bedside, held pressure for 10-15 minutes. While pressure was being applied, blood noted to be oozing from cath site. After 15 minutes, pressure dressing applied. Cardiology paged at this time for an update- awaiting call back. [facility] 02-04-2024 Note ATRIAL FIBRILLATION ABLATION PROCEDURE NOTE DATE OF PROCEDURE: 02/04/2024 PERFORMING PHYSICIAN: Dr. Matt Willis CONSENT: Patient NAME OF THE PROCEDURE: Pulmonary Vein Isolation and Comprehensive EP study. INDICATIONS FOR PROCEDURE: 1. Persistent atrial fibrillation. FLUROSCOPY: 2.1min/ 10mGy. EBL: 25cc SPECIMEN REMOVED: None PROCEDURES PERFORMED: 1. Sonosite guided venous access as noted below and images stored in PACS. 2. Comprehensive EP study and catheter ablation for persistent atrial fibrillation through the pulmonary vein isolation technique. This includes right atrial recording and pacing, His bundle recording and right ventricular recording and pacing. 3. Intracardiac EP 3D mapping. 4. Intracardiac echocardiogram 5. Left atrial and coronary sinus recording and pacing to assess ablation results. 6. Left heart pressure measurements and LV pacing and recording. 7. Induction of arrhythmia and testing of ablation results using intravenous adenosine infusion. 8. Fluroscopy. INDICATION: 63 y.o. year old with past medical history of Peyronie's disease, aortic valve replacement x2, ?Marfan syndrome??, paresthesia, rheumatic heart disease s/p mitral valve replacement, LVH, A-fib, aortic aneurysm repair on warfarin due to history of A-fib and prosthetic valves. At one point was being seeing by [facility] for PPM but no PPM placed. [...] his heart rate is above 80 which he feels is high for him he takes half dose of Toprol-XL and verapamil. He was seen by Honorio CHENEY on 03/26/2023. given the symptoms the decision was made to back off the beta-blockers to have a more consistent regimen to see where his heart rate runs. 30-day event monitor done from 04/15/2023 to 05/14/2023 revealed no episodes of atrial fibrillation or flutter. symptoms of flutter that correlated with either PAC or just with plain sinus rhythm but majority of them correlated with the PACs. no SVT or VT was noted. He had a LOOP which revealed episodes of AF and so he opted to proceed with catheter ablation over medications. PROCEDURE NOTE: On the day of presentation, he was noted to be in sinus rhythm following which the MEENAKSHI was deferred. Risks, benefits and alternatives of the procedure were discussed with the patient and family who agreed to proceed. Please refer to my consult note for details of the discussion and of indications. The patient was prepped and draped following which four venous access was procured on right side as noted below. Ultrasound was used to determine the course and patency of the femoral veins on both sides and they were noted to be patent and the image stored in PACS. After infiltration with 1% lidocaine, 3 venous sheaths were placed in the right as noted below and a femoral arterial line was placed by me. LFA: 4F fo hemodynamic monitoring. RFV: 8Fx3, [employer] ThermoCool SF Bi-Directional over SL1/ Vizigo, SL1: Octoray,, CS Catheter (EZ Steer), ICE catheter. Following venous access, heparin bolus was given followed by continuous intravenous drip to target ACT around 350. An intracardiac ultrasound catheter was inserted into the right atrium to examine the right atrial anatomy, atrial septum, pulmonary vein anatomy and to monitor for pericardial effusion and guide transseptal access. The LA and RA was only moderately dilated. At baseline, there was no pericardial effusion and no JATINDER clot but noted a very prominent Coumadin ridge. Esophagus was mapped using the CARTOSOUND 3D mapping software and noted to be towards the middle. Transeptal access was procured with ICE guidance using a SL-1 sheath and Ashvin needle. LV pacing was not done due to prosthric metallic valve. Following this, Octoray,catheter was advanced and the multipolar mapping performed of the LA creating a geometry as well as bipolar voltage assessment was made. The LA was noted to be healthy. After FAM geometry was performed, SL1 sheath was removed and Vizigo sheath was advanced over which the ablation catheter ST-SF thermocol ablation catheter was advanced. Ablation was then performed. A cooling tube was advanced to the stomach and position confirmed with fluoroscopy and cooling initiated to 4C. Ablation was performed using 40 pineda for 10-12s in the anterior LA and 5-8seconds in the posterior wall and roof area. After completion of the left sided WACA, no signals were noted in the LSPV or LIPV and entrance and exit block was noted. After this, I proceeded to perform ablation of the right-sided vein. Following right WACA, the veins were isolated. I ens (more content not included)... [facility] 02-04-2024 Note Patient: Nitza larios Procedure Summary Date: 02/04/24 Room / Location: [facility] / [facility] (Cath) Anesthesia Start: 840 Anesthesia Stop: 1214 Procedure: Ablation a-fib paroxysmal Diagnosis: PAF (paroxysmal atrial fibrillation) (CMS/HCC) (PAF (paroxysmal atrial fibrillation) (CMS/HCC) [I48.0]) Providers: Matt Willis MD Responsible Provider: Nitza Huntley MD Anesthesia Type: general ASA Status: 3 Anesthesia Type: general Vitals Value Taken Time BP 127/64 02/04/24 1244 Temp 36.2 ???C (97.2 ???F) 02/04/24 1214 Pulse 60 02/04/24 1259 Resp 16 02/04/24 1259 SpO2 100 % 02/04/24 1259 Anesthesia Post Evaluation Patient location during evaluation: PACU Patient participation: complete - patient participated Level of consciousness: awake and alert Pain score: 0 Multimodal analgesia pain management approach Airway patency: patent Two or more strategies used to mitigate risk of obstructive sleep apnea Cardiovascular status: hemodynamically stable Respiratory status: nasal cannula and nonlabored ventilation Hydration status: euvolemic Patient is hemodynamically stable and is able to be discharged from PACU per anesthesia protocol. There were no known notable events for this encounter. [facility] 02-04-2024 Note Airway Date/Time: 02/04/2024 8:59 AM Urgency: elective Airway not difficult General Information and Staff Patient location during procedure: OR Anesthesiologist: Nitza Huntley MD Resident/MEDIA CONSULTANT OUTSIDE SALES/CAA: Liliya Olmedo MD Performed: resident/MEDIA CONSULTANT OUTSIDE SALES/CAA Indications and Patient Condition Indications for airway management: anesthesia Spontaneous Ventilation: absent Sedation level: deep Preoxygenated: yes Patient position: sniffing Mask difficulty assessment: 1 - vent by mask Planned trial extubation Final Airway Details Final airway type: endotracheal airway Successful airway: ETT Cuffed: yes Successful intubation technique: video laryngoscopy Facilitating devices/methods: intubating stylet Endotracheal tube insertion site: oral Blade: Villalobos Blade size: #3 ETT size (mm): 7.5 Cormack-Lehane Classification: grade I - full view of glottis Placement verified by: chest auscultation and capnometry Measured from: lips ETT to lips (cm): 22 Number of attempts at approach: 1 Number of other approaches attempted: 0 [facility] 02-04-2024 Note Patient: Nitza larios Procedure Information Date/Time: 02/04/24 0800 Procedure: Ablation a-fib paroxysmal - PC APPROVE Location: [facility] EP / [facility] (Cath) Providers: Matt Willis MD Relevant Problems Anesthesia (+) ANNETTE (obstructive sleep apnea) (Uses CPAP) Cardio (+) PAF (paroxysmal atrial fibrillation) (CMS/HCC) (+) Primary hypertension (+) Thoracic aortic aneurysm without rupture (CMS/HCC) (S/p aortic root replacement) Endo (+) Hypothyroidism Pulmonary Pulmonary hypertension Circulatory (+) Presence of prosthetic heart valve (S/p AVR x2 + MVR x1) Other Marfan's syndrome On warfarin - last dose last night INR 2.2 this AM Encounter Date: 02/04/24 Electrocardiogram, 12-lead Result Value Ventricular Rate 67 Atrial Rate 67 MO Interval 134 QRS DURATION 118 QT Interval 422 QTC CALCULATION(BAZETT) 445 P Bellwood 59 R-Bellwood -27 T Wave Bellwood -5 Impression Normal sinus rhythm Left ventricular hypertrophy with QRS widening ( R in aVL , Sokolow-Payne , Kimper product ) Abnormal ECG No previous ECGs available Echo 03/07/23: EF 55-60% Thickened septal wall LA/RA mildly dilated RV mildly dilated Mitral valve shows prosthetic valve without regurgitation or perivalvular leak Aortic valve shows prosthetic valve without regurgitation or perivalvular leak Mild pulmonic regurgitation Clinical information reviewed: Tobacco Allergies Meds Problems Med Hx Surg Hx Fam Hx Soc Hx Physical Exam Airway Mallampati: III TM distance: >3 FB Neck ROM: full Cardiovascular Rhythm: regular Rate: normal Dental - normal exam Pulmonary Breath sounds clear to auscultation Abdominal - normal exam Anesthesia Plan ASA 3 general The patient is not a current smoker. Education provided regarding risk of obstructive sleep apnea. intravenous induction Postoperative administration of opioids is intended. Trial extubation is planned. Anesthetic plan and risks discussed with patient. Use of blood products discussed with patient who consented to blood products. Plan discussed with attending. Additional Equipment Requests [facility] 01-26-2024 Note [place] Electrophysiology Consult Note Reason for visit: AF, MVRx2 (rheumatic disease hx?), hx AVR 01/26/24 Pt here for consent. Patient here to discuss upcoming afib ablation, scheduled for 02/04/2024. Denies chest pain, SOB, lightheadedness/syncope, and bleeding on warfarin. Does feel palpitations and skipped beats . 12/29/23 Patient here for 3 mo follow [...] At one point was being seeing by [facility] for PPM but no PPM placed. [...] 125, triglycerides 162, hemoglobin A1c 5.4 Per [facility] cardiology 09/2020 HISTORY OF PRESENT ILLNESS: Mr. [...] Use: Not on file Financial Resource Strain: Low Risk (09/26/2019) Received from [employer] [employer] Overall Financial Resource Strain (CARDIA) Difficulty of Paying Living Expenses: Not hard at all Food Insecurity: Not on file Transportation Needs: No Transportation Needs (09/26/2019) Received from [employer], [employer] PRAPARE - Transportation Lack of Transportation (Medical): No Lack of Transportation (Non-Medical): No Physical Activity: Sufficiently Active (09/26/2019) Received from [employer], [employer] Exercise Vital Sign Days of Exercise per Week: 2 days Minutes of Exercise per Session: 150+ min Stress: No Stress Concern Present (09/26/2019) Received from [employer], [employer] [place] [employer] - Occupational Stress Questionnaire Feeling of Stress : Only (more content not included)... [facility] 12-29-2023 Note [place] Electrophysiology Consult Note Reason [...] At one point was being seeing by [facility] for PPM but no PPM placed. [...] 125, triglycerides 162, hemoglobin A1c 5.4 Per [facility] cardiology 09/2020 HISTORY OF PRESENT ILLNESS: Mr. [...] on file Intimate Partner Violence: Unknown (04/10/2023) [place] Safety & Environment Fear of Current or [...] daily. metoprolol succinate (more content not included)... [facility] 10-21-2023 History of Present illness Narrative Images from the original note were not included. Chief Complaint Patient presents with Sleep Apnea Subjective Nitza Kevni Ibanez, 63 y.o., male being seen in Sleep Consultaiton at the request of Honorio Croft NP. Dr. Jimenez is his PCP. HPI He had A-fib and was sent for an eval. He was tired during the day The patient states that he is wearing his machine every night. He denies issues with his machine. He states once in a while the mask will leak and he needs to readjust it. He does not need supplies right now. He is going to bed at 10pm and waking up at 5am. He states once in a while he will wake up at 2am and he has a hard time going back to sleep on occasion. He is doing better since starting the machine. He does feel better and is getting a benefit. He is more rested less dozing and sleeping more through the night. He does not like the full face. Sleep ND Patient Symptoms Snores: Yes when very tired Wakes gasping for breath: No Dozes off if inactive: Yes Dozes off with activity: Yes Wakes a lot through the night: No Witnessed episodes of apnea: Yes- by Is sleep restful or restorative: Yes Bedtime: 10pm Is it hard or easy to fall asleep: Easy Wakes up: 5am felt rested then around in evening would feel tired. Takes naps: No Feels better after napping: Sleepwalk: No Sleeptalk: No Vivid Dreams: No Acts out dreams: No Sleep related hallucinations: No Sleep paralysis: No Cataplexy: No Restless Leg: No Kicking/Jerking at night: Yes TV on while sleeping: Yes Smoke before bed: No Caffeine within 3 hours before bed: No CV exercise: Walks for at work. 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 Past Medical History: Diagnosis Date Backache Disturbance of skin sensation History of medical problems Displacement of intervertebral disc, site unspecified, without myelopathy Variants of migraine (CMS/HCC) not elsewhere classified; without mention of intractable migraine without mention of status migrainosus; without mention of refractory migraine without mention of status migrainosus History reviewed. No pertinent surgical history. No family history on file. Social History Tobacco Use Smoking status: Not on file Smokeless tobacco: Not on file Substance Use Topics Alcohol use: Not on file Allergies: Patient has no known allergies. General: No fever or chills HEENT: No nasal congestion or runny nose Pulmonary: No shortness of breath or cough Cardiovascular: No chest pain or palpitations GI: No nausea or vomiting : No dysuria or hematuria Musculoskeletal: No new aches or pains or muscle weakness Infectious: no recurrent fevers or infections Dermatologic: No rashes or skin lesions Neurologic: No new headaches or dizziness There were no vitals filed for this visit.There is no height or weight on file to calculate BMI. Neurologic exam: General: Normal body habitus, cooperative, pleasant Mental status: Awake, alert to person, place and time. Recent and remote memory are intact. Attention and concentration are normal. Fund of knowledge is appropriate for level of education. HEENT: NC/AT Cranial nerves: CN II: Visual antoine full to confrontation. No loss of vision CN III, IV, : pupils equal round and reactive to light. Extraocular movements intact. No ptosis present. CN V: Facial sensation is normal. CN VII: Full and symmetric facial movement. CN VIII: Hearing is normal CN IX and X: Palate elevates symmetrically. CN XI: Shoulder shrug is normal bilaterally. CN XII: Tongue is midline without atrophy or fasciculation. Speech: Clear and fluent no aphasia or dysarthria Pronator drift: Negative bilateral upper extremity Coordination: Intact, no signs of dysmetria Good finger to nose and rapid alternating movements Sensory: Sensation is intact to light, temperature and vibratory touch throughout four extremities. Motor: LUE 5/5 RUE 5/5 LLE 5/5 RLE 5/5 Tone: Physiologic, no tremor, bradykinesia or rigidity DTR: Bilateral Biceps 2/4 Bilateral BR 2/4 Bilateral Patellar 2/4 No spasticity Gait: Normal to casual gait Romberg's Negative Review and summary of old records: Assessment/Plan Diagnoses and all orders for this visit: ANNETTE (obstructive sleep apnea) Hypoxia Hypersomnia Inadequate sleep hygiene Snoring Atrial fibrillation, unspecified type (CMS/HCC) 63-year-old male with a mild obstructive sleep apnea with an AHI of 11 but some a more profound hypoxia down to 75 percent. This is leading to daytime hypersomnolence and snoring. He does have some inadequate sleep hygiene with not allowing enough hours of sleep. He was initially compliant with his CPAP machine and using it 93 percent of the time with 70% of the time greater than 4 hours with an average nightly usage of 4 hours and 35 minutes with a residual AHI of 4.7 Unfortunately that has fallen off a little bit however he did meet compliance data with best out of 30. He is having somewhat of a leak so he was shown some different mask he could get her it could try to use a chin strap. Since he had the hypoxia we will go ahead and do a nocturnal pulse ox to be sure that his oxygen is also controlled as he only had the home sleep study with auto PAP started. He has an [place] Sleepiness scale of 8. More aggressive with getting the mask and machine on and wearing it all night long. Plan HST was reviewed with him Compliance download was reviewed Educated he needs to get the machine on every night get more used to it where it for longer time He was counseled he could use more sleep time overall We will go ahead and do a nocturnal pulse ox to be sure that his oxygenation is controlled with the current pressure He can try some different mask or chin strap He was offered a 6 month evaluation but he wants to wait for the year. He was counseled if he is having issues he needs to call us as we will assume if we do not hear from him he is doing well. The patient was counseled on proper sleep hygiene and adequate hours of sleep. The patient was counseled on the risks of stroke, [place], and sudden with ANNETTE, along with the need for compliance with the CPAP/BiPAP treatment. He was counseled he needs to wear this to help prevent further atrial fibrillation. The diagnosis was all discussed with the patient. All questions were answered and they agreed with the treatment plan. Patient will call if there are any new issues or questions. Pt has been fully educated on their diagnosis, treatment options, follow up plan, and return instructions Return to clinic: 1 year documented in this encounter [facility] 09-29-2023 Note [place] Electrophysiology Consult Note Reason [...] At one point was being seeing by [facility] for PPM but no PPM placed. [...] 125, triglycerides 162, hemoglobin A1c 5.4 Per [facility] cardiology 09/2020 HISTORY OF PRESENT ILLNESS: Mr. [...] on file Intimate Partner Violence: Unknown (04/10/2023) [place] Safety & Environment Fear of Current or [...] of Systems Cardiovascular (more content not included)... [facility] 06-22-2023 Note LOOP IMPLANT PROCEDU RE [...] the sternum on the left using the [employer] tool. The loop recorder was then [...] incision. Matt Willis MD Cardiac Electrophysiology. [facility] 06-02-2023 Note [place] Electrophysiology Consult Note [...] At one point was being seeing by [facility] for PPM but no PPM placed. [...] 125, triglycerides 162, hemoglobin A1c 5.4 Per [facility] cardiology 09/2020 HISTORY OF PRESENT ILLNESS: Mr. [...] irregular he (more content not included)... [facility] 04-15-2023 Note [place] Electrophysiology Consult Note [...] At one point was being seeing by [facility] for PPM but no PPM placed [...] 125, triglycerides 162, hemoglobin A1c 5.4 Per [facility] cardiology 09/2020 HISTORY OF PRESENT ILLNESS: Mr. [...] on file Intimate Partner Violence: Unknown (04/10/2023) [place] Safety [place] Environment Fear of Current or [...] mouth every (more content not included)... [facility] 11-05-2022 Miscellaneous Notes Call from patient requesting refill. Requested Prescriptions Pending Prescriptions Disp Refills losartan (COZAAR) 50 mg tablet [Pharmacy Med Name: LOSARTAN POTASSIUM 50 MG TAB] 180 tablet 3 Sig: take one tablet by mouth twice a day Patient last seen 09/26/20 Mary Fowler documented in this encounter [facility] 09-25-2021 Miscellaneous Notes Electronic request for refill. Requested Prescriptions Pending Prescriptions Disp Refills losartan (COZAAR) 50 mg tablet [Pharmacy Med Name: LOSARTAN POTASSIUM 50 MG TAB] 180 tablet 3 Sig: TAKE 1 TABLET BY MOUTH TWICE A DAY Last office visit in was 07/26/2020 Ha Silveira documented in this encounter [facility] 09-26-2020 Note HNO ID: [id number] Author: Nimo Altman MD Service: ? Author Type: Physician Type: Progress Notes Filed: 10/24/2020 11:55 AM Note Text: [facility] Department of Cardiovascular Medicine SECTION OF CARDIOVASCULAR IMAGING OUTPATIENT VISIT DATE September 26, 2020 OUTPATIENT VISIT TYPE NEW PRIMARY CARE PHYSICIAN: Nehemiah Jimenez MD [address] [place] [address] REFERRING PHYSICIAN: Shaq Luna [address] [place] [id number] CHIEF COMPLAINT: Valvular heart disease HISTORY OF [...] disorder - PAF (paroxysmal atrial fibrillation) ([facility]) PAST SURGICAL HISTORY Procedure Laterality Date - [...] mouth daily as directed. As directed by [facility] coumadin [facility]. levothyroxine (SYNTHROID) 25 mcg tablet [...] GASTROINTESTINAL: Negative for: (more content not included)... [facility] 07-26-2020 Note HNO ID: [id number] Author: Joycelyn Weir Service: ? Author Type: ? Type: Progress Notes Filed: 07/26/2020 2:25 PM Note Text: EVENT MONITOR DISPOSABLE PATCH INSTRUCTIONS Patient Name: Nitza Ibanez [facility] Number: [id number] Skin prepped and cleansed with alcohol Patch secured to prepped area Monitor Activated Serial #: [id number] Patient Instructed: 1.) Prescribed order timeframe 2.) Bathing guidelines 3.) Usage of event button and diary documentation 4.) Return of monitor at the end of prescribed order 5.) Call with problems [phone] or [phone]. [phone] Patient expresses a good understanding of instructions Joycelyn Weir [facility] 07-26-2020 Note Education (CARDMN) RUBENNITZA ([id number]) 1960 M Date Time Provider Department 07/26/20 2:00 PM ARRHYTHMIA MONITORING LAB CARDMN Reason for Visit: ZIO PATCH [Other] Progress Notes: Joycelyn Weir 07/26/2020 2:25 PM Signed EVENT MONITOR DISPOSABLE PATCH INSTRUCTIONS Patient Name: Nitza Ibanez Clinic Number: [id number] Skin prepped and cleansed with alcohol Patch secured to prepped area Monitor Activated Serial #: [id number] Patient Instructed: 1.) Prescribed order timeframe 2.) Bathing guidelines 3.) Usage of event button and diary documentation 4.) Return of monitor at the end of prescribed order 5.) Call with problems [phone] or [phone]. [phone] Patient expresses a good understanding of instructions Joycelyn Weir Primary Visit Diagnosis:AF (paroxysmal atrial fibrillation) [...] by mouth twice * Encounter Status:Closed by JOYCELYN GRAVES on 07/26/20 [facility] 07-26-2020 Note HNO ID: [id number] Author: Shaq Luna MD Service: ? Author [...] fibrillation, sudden deaths. 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 . Daughter A AND W. 2 grandchildren. Lives in [place], [place]. Habits: Tobacco: none. Alcohol: never. Caffeine: [...] sweating-No, Frequent urination (more content not included)... [facility] 07-26-2020 Note HNO ID: [id number] Author: Shaq Luna MD Service: ? Author [...] aortic valve with sinus bradycardia 54 bpm. [facility] 06-26-2020 Miscellaneous Notes Patient: Nitza Ibanez Date of : 1960 Patient phone number: [phone] Referring Provider for the encounter: Nehemiah Jimenez Requesting Provider: Someone that specializes in Valve Disease Reason for requesting visit (RFV/signs and symptoms/diagnosis): Bradycardia, tachycardia Person calling: self Return call to: self Medical Records/Insurance Card scanned into [place] Translate: Yes Comments: Valve Replacement X2 documented in this encounter [facility] Evaluation note Diagnosis Primary insomnia- Primary Persistent disorder of initiating or maintaining sleep ANNETTE (obstructive sleep apnea) Obstructive sleep apnea (adult) (pediatric) Hypoxia Hypoxemia Hypersomnia Hypersomnia, unspecified Inadequate sleep hygiene Other specific disorder of sleep of nonorganic origin Snoring Other dyspnea and respiratory abnormality Atrial fibrillation, unspecified type (CMS/HCC) documented in this encounter [facility] Summary Purpose Family History No Family History [...] section and content) DATE CREATED AUTHOR 07/08/2018 [facility] DATE CREATED AUTHOR AUTHOR'S ORGANIZ ATION 03/19/2021 [facility] DATE CREATED AUTHOR AUTHOR'S ORGANIZ ATION 04/02/2022 [facility] DATE CREATED AUTHOR AUTHOR'S ORGANIZ ATION 10/23/2023 [facility] DATE CREATED AUTHOR AUTHOR'S ORGANIZ ATION 02/15/2024 [facility] [place] [facility] DATE CREATED AUTHOR AUTHOR'S ORGANIZ ATION 03/01/2024 [facility] Source Comments (unrecognize d section and content) In the event this informatio n is protected by the Federal Confidentiality of Alcohol and Drug Abuse Patient Records regulations: The Federal rules restrict any use of the information to criminally investigate or prosecute any alcohol or drug abuse patient.[facility] CenterIn the event this information is protected by the Federal Confidentiality of Alcohol and Drug Abuse Patient Records regulations: The Federal rules restrict any use of the information to criminally investigate or prosecute any alcohol or drug abuse patient.[facility] CenterIn the event this information is protected by the Federal Confidentiality of Alcohol and Drug Abuse Patient Records regulations: The Federal rules restrict any use of the information to criminally investigate or prosecute any alcohol or drug abuse patient.[facility] Reason for Visit (unrecogniz ed section and content) Reason Comments External Referrals/resources Reason Comments Refill Request Reason Comments Sleep Apnea Care Teams (unrecognized sec tion and content) 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 Relationship Specialty Start Date End Date Nehemiah Jimenez MD [address] [id number] PCP - General Family Practice 06/06/13 Abner Young [address] [address] Referring Cardiology 07/26/20 Nimo Altman MD [address] [place] [address] Primary Staff Physician Cardiology 09/26/20 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 Relationship Specialty Start Date End Date Nehemiah Jimenez MD PCP - General Family Medicine 06/06/13 Abner Young [address] [facility] [address] [place] [address] Referring Cardiology 07/26/20 Nimo Altman MD [address] [place] [address] Primary Staff Physician Cardiology 09/26/20 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 [facility] [employer] [facility]. provides no warranty or guarantee of the accuracy or completeness of information in this document.
== END 2024-03-03 15:07 | disposition home or self-care (01) ==
LOC: WC 15:06
PROVIDERS: PCP Family Medicine; Visit Provider Physician Assistant
DX: L97.412 Non-pressure chronic ulcer of right heel and midfoot with fat layer exposed (principal)
CPT/HCPCS: G0463

== ENCOUNTER 2024-03-21 00:37 | Outpatient (RCR) | payer BC, SELFPAY | END 2024-04-15 10:21 | disposition home or self-care (01) | LOC: MM 00:37 | PROVIDERS: PCP Family Medicine; Visit Provider Internal Medicine | DX: Z51.81 Encounter for therapeutic drug level monitoring (principal); Z79.01 Long term (current) use of anticoagulants; I48.91 Unspecified atrial fibrillation ==

== ENCOUNTER 2024-04-16 06:59 | Outpatient (RCR) | payer BC, SELFPAY | END 2024-05-13 09:58 | disposition home or self-care (01) | LOC: MM 06:59 | PROVIDERS: PCP Family Medicine; Visit Provider Internal Medicine | DX: Z51.81 Encounter for therapeutic drug level monitoring (principal); Z79.01 Long term (current) use of anticoagulants; I48.91 Unspecified atrial fibrillation ==

== ENCOUNTER 2024-05-17 01:55 | Outpatient (RCR) | payer BC, SELFPAY | END 2024-06-15 13:33 | disposition home or self-care (01) | LOC: MM 01:55 | PROVIDERS: PCP Family Medicine; Visit Provider Internal Medicine | DX: Z51.81 Encounter for therapeutic drug level monitoring (principal); Z79.01 Long term (current) use of anticoagulants; I48.91 Unspecified atrial fibrillation ==

== ENCOUNTER 2024-05-26 16:48 | Outpatient (OUT) | payer BC, SELFPAY ==
--- OUTSIDE RECORDS SUMMARY | 2024-05-26 16:58 | XMS_ITS | CCD ---
Author Organization [facility] Care Team Providers Care Service Crew Leader Name Role Phone Nehemiah Jimenez Primary Care Provider Nehemiah Jimenez Unavailable Nehemiah Jimenez MD Primary Care Provider [phone] Abner Young Unavailable Dianne WOOD, Nimo H Unavailable DR NEHEMIAH JIMENEZ Attending Unavailable DR NEHEMIAH JIMENEZ Admitting Unavailable ARTUR, DR CERNA Primary Care Unavailable DR NEHEMIAH JIMENEZ Consulting Unavailable DR NEHEMIAH JIMENEZ Attending Unavailable DR NEHEMIAH JIMENEZ Admitting Unavailable DR NEHEMIAH JIMENEZ Primary Care Unavailable Nehemiah Jimenez MD Primary Care Provider [phone] Abner Young Unavailable Dianne WOOD, Nimo H Unavailable [phone] MACARENA GARCIA Attending Unavailable Nehemiah Jimenez MD Primary Care Provider [phone] Kevin FRANCO Attending Unavailable Nehemiah Jimenez Referring Unavailable MATT WILLIS Referring Unavailable EMYMATT Referring Unavailable EMY, MATT Referring Unavailable EMYMATT Referring Unavailable GUERDAJUAN Durán Referring Unavailable EMY, MATT Referring Unavailable EMY, MATT Referring Unavailable EMY, MATT Referring Unavailable EMY, MATT Referring Unavailable TIFFANYRHONDA Attending Unavailable EMYMATT Saleh Referring Unavailable EMYMATT Referring Unavailable EMY, MATT Referring Unavailable EMY, MATT Attending Unavailable EMYMATT Attending Unavailable EMY, MATT Attending Unavailable EMYMATT Admitting Unavailable EMYMATT Attending Unavailable EMYMATT Attending Unavailable MATT WILLIS Admitting Unavailable MATT WILLIS Attending Unavailable Allergies Allergy Classification Reported Allergen(s) Allergy Type Date of Onset Reaction(s) Facility (1 source) No Known Medication Allergies; Translations: [No Known Medication Allergies] Propensity to adverse reactions (disorder) [facility] Repository Medications Current Medications Medication Drug [...] mouth daily as directed. As directed by [facility] coumadin clinic. 0 10/21/2018 Active Comment on above: Take 5 mg by mouth d aily as directed. As directed by [facility] coumadin clinic. Problems Active Problems [...] dysrhythmias (2 sources) Palpitations; Translations: [Palpitations] Onset: 12-28-2023 Episodic Other lower respiratory disease (2 sources) Hypoxia; Translations: [Hypoxemia] 10-21-2023 Episodic Other lower respiratory disease (2 sources) Snoring; Translations: [Snoring] 10-21-2023 Episodic Other screening for suspected conditions (not mental disorders or infectious disease) (1 source) Encounter for screening for malignant neoplasm of prostate; Translations: [ENC SCREEN MALIG NEOPLASM PROSTATE] Onset: 12-18-2021 Episodic Residual codes; unclassified (2 sources) Inadequate sleep hygiene; Translations: [Inadequate sleep hygiene] 10-21-2023 Episodic Results Test Name Value Interpretation Reference Range Facility 36on 04-05-2024 36 called with BP lo/77 HR 74 133/65 HR 81 151/79 HR 77 145/73 HR 83 133/78 HR 102 133/87 HR 99 123/65 HR 72 130/77 HR 77 124/67 HR 92 Normal [facility] Follow-Upon 03-16-2024 Follow-Up [id number] Indio Ibanez 1960 M Date Provider Department Center 03/16/2024 [id number] ALLEN Family History Problem Relation Age of Onset Cancer Mother Cancer Father Diabetes Sister Cancer Brother Diabetes Brother Family Status - Relation Status Age at Mother Father Sister Brother Level of Service:02610 OR OFFICE/OUTPATIENT ESTABLISHED LOW MDM 20 MIN Normal [facility] Telephoneon 02-25-2024 Telephone [id number] Indio Ibanez as L 1960 M Date Provider Department Center 02/25/20241986[facility] IA HeartVAS Family History Problem Relation Age of Onset Cancer Mother Cancer Father Diabetes Sister Cancer Brother Diabetes Brother Family Status - Relation Status Age at Mother Father Sister Brother Reason for Visit and Comments: 3 week post ablation f/u [Other] [facility] Telephoneon 02-18-2024 Telephone [id number] Indio Ibanez as L 1960 M Date Provider Department Center 02/18/20241986-[facility] VASC LAB IA HeartVAS Family History Problem Relation Age of Onset Cancer Mother Cancer Father Diabetes Sister Cancer Brother Diabetes Brother Family Status - Relation Status Age at Mother Father Sister Brother Reason for Visit and Comments: post ablation f/u [Other] [facility] 36on 02-06-2024 36 No answer when dominguez d for discharge call back, message left, call back number provided if he has any questions or concerns. [facility] Telephoneon 02-06-2024 Telephone [id number] Indio Ibanez as L 1960 M Date Provider Department Center 02/06/2024 [facility] Medical C Family History Problem Relation Age of Onset Cancer Mother Cancer Father Diabetes Sister Cancer Brother Diabetes Brother Family Status - Relation Status Age at Mother Father Sister Brother Reason for Visit and Comments: Hospital Follow-up [832] [facility] 30on 02-05-2024 30 The patient is Moderately Stable - Low risk of patient condition declining or worsening The patient's goals for the shift include rest/comfort The clinical goals for the shift include VSS, safety Over the shift, the patient did not make progress toward the following goals. Barriers to progression include. Recommendations to address these barriers include. Normal [facility] 30 The patient is Moderately Stable - Low risk of patient condition declining or worsening The patient's goals for the shift include rest/comfort The clinical goals for the shift include VSS,safety Over the shift, the patient did not make progress toward the following goals. Barriers to progression include. Recommendations to address these barriers include. Normal [facility] BASIC METABOLIC PANELon 12-2 0-2023 Anion gap [Moles/Vol] 12 mmol/L Normal 7-20 [facility] Comment on above: Performed By: #### L [id number] ####[facility] LAB (BEAKER)[address] [place] [address] Calcium [Mass/Vol] 8.5 mg/dL Low 8.6-10.3 [facility] Comment on above: Performed By: #### L [id number] ####[facility] LAB (BEAKER)[address] [place] [address] Chloride [Moles/Vol] 103 mmol/L Normal 98-107 [facility] Comment on above: Performed By: #### L [id number] ####[facility] LAB (BEAKER)[address] [place] [address] CO2 [Moles/Vol] 23 mmol/L Normal 21-31 [facility] Comment on above: Performed By: #### L [id number] ####[facility] LAB (BEAKER)[address] [place] [address] Creatinine [Mass/Vol] 0.86 mg/dL Normal 0.70-1.30 [facility] Comment on above: Performed By: #### L [id number] ####[facility] LAB (BEAKER)[address] [place] [address] GLOMERULAR FILTRATION RATE ML/MIN/1.73 SQ M.PREDICTED 96.7 mL/min/1.73m*2 Normal >60.0 [facility] Comment on above: Result Comment: The [facility]???s estimated glomerular filtration rate (eGFR) will no [...] of individuals. Performed By: #### L [id number] ####[facility] ([facility] [place] [address] Glucose [Mass/Vol] 141 mg/dL High 70-100 [facility] Comment on above: Performed By: #### L [id number] ####[facility] ([facility])[address] [place] [address] Potassium [Moles/Vol] 4.0 mmol/L Normal 3.5-5.1 [facility] Comment on above: Performed By: #### L [id number] ####[facility] ([facility])[address] [place] [address] Sodium [Moles/Vol] 134 mmol/L Low 136-145 [facility] Comment on above: Performed By: #### L [id number] ####[facility] ([facility])[address] [place] [address] Urea nitrogen [Mass/Vol] 19 mg/dL Normal 7-25 [facility] Comment on above: Performed By: #### L [id number] ####[facility] ([facility])[address] [place] [address] UREA NITROGEN/CREATININE (MASS RATIO) IN SER/PLAS 22.1 Normal [facility] Comment on above: Performed By: #### L [id number] ####[facility] ([facility])[address] [place] [address] BLOOD CULTUREon 02-05-2024 Bacteria identified Cx Nom (Bld) No growth at 5 days Normal [facility] Comment on above: Performed By: #### L [id number] #### [facility] ([facility]) [address] [place] [address] Order Comment: From a different site than #1. Performed By: #### L [id number] ####[facility] LAB ([facility] [place] [address] CBC WITH AUTO DIFFERENTIALon 02-05-2024 Basophils (Bld) [#/Vol] 0.01 10*3/uL Normal 0.00-0.20 [facility] Comment on above: Performed By: #### L [id number] #### [facility] LAB (BEAKER) [address] [place] [address] Basophils/100 WBC (Bld) 0.1 % Normal 0.0-1.0 [facility] Comment on above: Performed By: #### L [id number] #### [facility] LAB (BEAKER) [address] [place] [address] Eosinophils (Bld) [#/Vol] 0.00 10*3/uL Normal 0.00-0.50 [facility] Comment on above: Performed By: #### L [id number] #### [facility] ([facility] [address] [place] [address] Eosinophils/100 WBC (Bld) 0.0 % Normal 0.0-6.0 [facility] Comment on above: Performed By: #### L [id number] #### [facility] ([facility] [address] [place] [address] Erythrocyte distribution width (RBC) [Ratio] 13.3 % Normal 11.5-15.0 [facility] Comment on above: Performed By: #### L [id number] #### [facility] LAB (BEAKER) [address] [place] [address] ERYTHROCYTE MEAN CORPUSCULAR HEMOGLOBIN CONCENTRATION (G/DL) BY AUTOMATED 33.1 g/dL Normal 32.0-35.0 [facility] Comment on above: Performed By: #### L [id number] #### [facility] LAB (BEAKER) [address] [place] [address] Hematocrit (Bld) [Volume fraction] 38.1 % Low 39.0-55.0 [facility] Comment on above: Performed By: #### L [id number] #### [facility] (BEAKER) [address] [place] [address] Hemoglobin (Bld) [Mass/Vol] 12.6 g/dL Low 13.0-17.0 [facility] Comment on above: Performed By: #### L [id number] #### [facility] ([facility]) [address] [place] [address] Immature granulocytes (Bld) [#/Vol] 0.08 10*3/uL Normal 0.00-0.20 [facility] Comment on above: Performed By: #### L [id number] #### [facility] ([facility]) [address] [place] [address] Immature granulocytes/100 WBC (Bld) 0.6 % Normal 0.0-1.0 [facility] Comment on above: Performed By: #### L [id number] #### [facility] ([facility]) [address] [place] [address] Lymphocytes (Bld) [#/Vol] 0.95 10*3/uL Low 1.20-4.00 [facility] Comment on above: Performed By: #### L [id number] #### [facility] ([facility]) [address] [place] [address] Lymphocytes/100 WBC (Bld) 6.6 % Low 20.0-45.0 [facility] Comment on above: Performed By: #### L [id number] #### [facility] ([facility]) [address] [place] [address] MCH (RBC) [Entitic mass] 28.6 pg Normal 27.0-33.0 [facility] Comment on above: Performed By: #### L [id number] #### [facility] ([facility]) [address] [place] [address] MCV (RBC) [Entitic vol] 86.6 fL Normal 82.0-98.0 [facility] Comment on above: Performed By: #### L [id number] #### [facility] ([facility] [address] [place] [address] Monocytes (Bld) [#/Vol] 0.96 10*3/uL Normal 0.10-1.00 [facility] Comment on above: Performed By: #### L [id number] #### [facility] ([facility]) [address] [address] Monocytes/100 WBC (Bld) 6.7 % Normal 5.0-12.0 [facility] Comment on above: Performed By: #### L [id number] #### [facility] ([facility]) [address] [address] Neutrophils (Bld) [#/Vol] 12.36 10*3/uL High 1.60-7.60 [facility] Comment on above: Performed By: #### L [id number] #### [facility] ([facility]) [address] [address] Neutrophils/100 WBC (Bld) 86.0 % High 40.0-72.0 [facility] Comment on above: Performed By: #### L [id number] #### [facility] ([facility]) [address] [place] [address] NRBC (PER 100 WBCS) BY AUTOMATED COUNT 0.0 % Normal 0 [facility] Comment on above: Performed By: #### L [id number] #### [facility] ([facility]) [address] [address] PLATELETS (10*3/UL) IN BLOOD AUTOMATED COUNT 236 10*3/uL Normal 150-400 [facility] Comment on above: Performed By: #### L [id number] #### [facility] ([facility]) [address] [address] RBC (Bld) [#/Vol] 4.40 10*6/uL Normal 4.20-5.70 [facility] Comment on above: Performed By: #### L [id number] #### [facility] ([facility]) [address] [address] WBC (Bld) [#/Vol] 14.36 10*3/uL High 4.00-10.60 [facility] Comment on above: Performed By: #### L [id number] #### [facility] [address]) [place] [address] DSon 02-05-2024 DS -- Attestation signed by [...] fibrillatio* Discharge Diagnosis PAF (paroxysmal atrial fibrillation) ([facility]) Discharge Disposition Home or Self Care () Discharge Medications Your medication list ASK your [...] Medications These medications were sent to [facility] - [place], [place] - [address], [facility] [address] famotidine 20 mg tablet omeprazole 40 mg [...] is performed under the ED CLIA certificate #[id number]. CBC WITH AUTO DIFFERENTIAL - Abnormal Auto [...] Absolute 0.9 (more content not included)... Normal [facility] LACTIC ACID WITH 4 HOUR REFL EXon 02-05-2024 LACTATE (MMOL/L) IN SER/PLAS 2.4 mmol/L High 0.5-2.2 [facility] Comment on above: Performed By: #### L [id number] #### [facility] (BEAKER) [address] [place] [address] Orders Onlyon 02-05-2024 Orders Only [id number] Indio Ibanez L 1960 M Date Provider Department Center 02/05/20241986[facility] IA HeartVAS Family History Problem Relation Age of Onset Cancer Mother Cancer Father Diabetes Sister Cancer Brother Diabetes Brother Family Status - Relation Status Age at Mother Father Sister Brother Normal [facility] PROTIME-INRon 02-05-2024 INR IN PPP BY COAGULATION ASSAY 2.87 High 0.90-1.10 [facility] Comment on above: Result Comment: ACCC P [...] 1995;108:231S-246S. Performed By: #### L [id number] #### [facility] LAB ([employer]) [address] [place] [address] PROTHROMBIN TIME (PT) IN PPP BY COAGULATION ASSAY 29.3 Seconds High 12.3-14.8 [facility] Comment on above: Performed By: #### L [id number] #### [facility] ([facility]) [address] [place] [address] 30on 02-04-2024 30 The patient is Moderately [...] baseline comfort level Outcome: Progressing Flowsheets (Taken 02/04/2024 2315) Verbalizes/displays adequate comfort level or baseline comfort [...] and behaviors that affect risk of falls [place] fall precautions as indicated by assessment Educate [...] conditions and prevent exacerbation or deterioration Normal [facility] CBC WITH AUTO DIFFERENTIALon 02-04-2024 Basophils (Bld) [#/Vol] 0.02 10*3/uL Normal 0.00-0.20 [facility] Comment on above: Performed By: #### L [id number] #### [facility] LAB (BEAKER) [address] [place] [address] Basophils/100 WBC (Bld) 0.2 % Normal 0.0-1.0 [facility] Comment on above: Performed By: #### L [id number] #### [facility] (BEAKER) [address] [place] [address] Eosinophils (Bld) [#/Vol] 0.01 10*3/uL Normal 0.00-0.50 [facility] Comment on above: Performed By: #### L [id number] #### [facility] LAB (BEAKER) [address] [place] [address] Eosinophils/100 WBC (Bld) 0.1 % Normal 0.0-6.0 [facility] Comment on above: Performed By: #### L [id number] #### [facility] ([facility]) [address] [place] [address] Erythrocyte distribution width (RBC) [Ratio] 13.0 % Normal 11.5-15.0 [facility] Comment on above: Performed By: #### L [id number] #### [facility] ([facility]) [address] [place] [address] ERYTHROCYTE MEAN CORPUSCULAR HEMOGLOBIN CONCENTRATION (G/DL) BY AUTOMATED 33.4 g/dL Normal 32.0-35.0 [facility] Comment on above: Performed By: #### L [id number] #### [facility] ([facility]) [address] [place] [address] Hematocrit (Bld) [Volume fraction] 40.4 % Normal 39.0-55.0 [facility] Comment on above: Performed By: #### L [id number] #### [facility] ([facility]) [address] [place] [address] Hemoglobin (Bld) [Mass/Vol] 13.5 g/dL Normal 13.0-17.0 [facility] Comment on above: Performed By: #### L [id number] #### [facility] ([facility]) [address] [place] [address] Immature granulocytes (Bld) [#/Vol] 0.06 10*3/uL Normal 0.00-0.20 [facility] Comment on above: Performed By: #### L [id number] #### [facility] ([facility]) [address] [place] [address] Immature granulocytes/100 WBC (Bld) 0.6 % Normal 0.0-1.0 [facility] Comment on above: Performed By: #### L [id number] #### [facility] ([facility] [address] [place] [address] Lymphocytes (Bld) [#/Vol] 0.65 10*3/uL Low 1.20-4.00 [facility] Comment on above: Performed By: #### L [id number] #### [facility] (BEAKER) [address] [place] [address] Lymphocytes/100 WBC (Bld) 6.2 % Low 20.0-45.0 [facility] Comment on above: Performed By: #### L [id number] #### [facility] (BEAKER) [address] [place] [address] MCH (RBC) [Entitic mass] 28.6 pg Normal 27.0-33.0 [facility] Comment on above: Performed By: #### L [id number] #### [facility] (BEAKER) [address] [place] [address] MCV (RBC) [Entitic vol] 85.6 fL Normal 82.0-98.0 [facility] Comment on above: Performed By: #### L [id number] #### [facility] (BEAKER) [address] [place] [address] Monocytes (Bld) [#/Vol] 0.10 10*3/uL Normal 0.10-1.00 [facility] Comment on above: Performed By: #### L [id number] #### [facility] (BEAKER) [address] [place] [address] Monocytes/100 WBC (Bld) 0.9 % Low 5.0-12.0 [facility] Comment on above: Performed By: #### L [id number] #### [facility] (BEAKER) [address] [place] [address] Neutrophils (Bld) [#/Vol] 9.69 10*3/uL High 1.60-7.60 [facility] Comment on above: Performed By: #### L [id number] #### [facility] (BEAKER) [address] [place] [address] Neutrophils/100 WBC (Bld) 92.0 % High 40.0-72.0 [facility] Comment on above: Performed By: #### L [id number] #### [facility] ([facility] [address] [place] [address] NRBC (PER 100 WBCS) BY AUTOMATED COUNT 0.0 % Normal 0 [facility] Comment on above: Performed By: #### L [id number] #### [facility] ([facility] [address] [place] [address] PLATELETS (10*3/UL) IN BLOOD AUTOMATED COUNT 222 10*3/uL Normal 150-400 [facility] Comment on above: Performed By: #### L [id number] #### [facility] ([facility]) [address] [facility] [place] [address] RBC (Bld) [#/Vol] 4.72 10*6/uL Normal 4.20-5.70 [facility] Comment on above: Performed By: #### L [id number] #### [facility] ([facility]) [address] [place] [address] WBC (Bld) [#/Vol] 10.53 10*3/uL Normal 4.00-10.60 [facility] Comment on above: Performed By: #### L [id number] #### [facility] ([facility]) [address] [place] [address] HPon 02-04-2024 [facility] Electrophysiology Consult Note Reason for [...] one point was being seeing by [facility] EP for PPM but no PPM [...] Toprol-XL and verapamil. He was seen by Ismael CHENEY on 03/26/2023. given the symptoms the [...] triglycerides 162, hemoglobin A1c 5.[address] [facility] cardiology 09/2020 HISTORY OF PRESENT ILLNESS: [...] Resource Strain: Low Risk (09/26/2019) Received from [facility] Overall Financial Resource Strain (CARDIA) Difficulty of Paying Living Expenses: Not hard at all Food Insecurity: Not on file Transportation Needs: No Transportation Needs (09/26/2019) Received from [facility] PRAPARE - Transportation Lack of Transportation (Medical): No Lack of Transportation (Non-Medical): No Physical Activity: Sufficiently Active (09/26/2019) Received from [facility] Exercise Vital Sign Days of Exercise per Week: 2 days Minutes of Exercise per Session: 150+ min Stress: No Stress Concern Present (09/26/2019) Received from [facility] [place] [facility] [employer] [facility] - Occupational Stress Questionnaire Feeling of Stress : Only a little Social Connections: Moderately Integrated (09/26/2019) Received from [employer] [place] Social Connection and Isolation Panel [NHANES] Frequency of (more content not included)... Normal [facility] POCT ACTIVATED CLOTTING TIME UNSOLICITED RESULTSon 02-04-2024 POC ACTIVATED CLOTTING TIME 119 sec Normal 82-152 [facility] Comment on above: Performed By: #### L [id number] ####[facility] LAB (BEAKER)[address] [place] [address] POCT GLUCOSE METER UNSOLICIT ED RESULTSon 02-04-2024 Glucose [Mass/Vol] 111 mg/dL High 70-105 [facility] Comment on above: Order Comment: Waive d Testing in the ED is performed under the ED CLIA certificate #[id number]. Result Comment: ngro clarisa Performed By: #### L [id number] #### [facility] ([place]) [address] [place] [address] PROTIME-INRon 02-04-2024 INR IN PPP BY COAGULATION ASSAY 2.20 High 0.90-1.10 [facility] Comment on above: Result Comment: ACCC P [...] 1995;108:231S-246S. Performed By: #### L [id number] #### [facility] ([place]) [address] [place] [address] PROTHROMBIN TIME (PT) IN PPP BY COAGULATION ASSAY 24.0 Seconds High 12.3-14.8 [facility] Comment on above: Performed By: #### L [id number] #### [facility] ([place]) [address] [place] [address] Prep for Procedureon 024 Prep for Procedure [id number] Indio Ibanez L 1960 M Date Provider Department Center 02/04/20241986[facility] IA HeartVAS Family History Problem Relation Age of Onset Cancer Mother Cancer Father Diabetes Sister Cancer Brother Diabetes Brother Family Status - Relation Status Age at Mother Father Sister Brother Normal [facility] Orders Onlyon 02-02-2024 Orders Only [id number] Indio Ibanez as L 1960 M Date Provider Department Center 02/02/2024 [facility] PAT IA Medical C Family History Problem Relation Age of Onset Cancer Mother Cancer Father Diabetes Sister Cancer Brother Diabetes Brother Family Status - Relation Status Age at Mother Father Sister Brother Normal [facility] Office Visiton 01-26-2024 Follow-up visit [id number] MarcelleIndio hagan as L 1960 M Date Provider Department Center 01/26/2024 MATT STANFORD Family History Problem Relation Age of Onset Cancer Mother Cancer Father Diabetes Sister Cancer Brother Diabetes Brother Family Status - Relation Status Age at Mother Father Sister Brother Level of Service:52608 OR OFFICE/OUTPATIENT ESTABLISHED MOD MDM 30 MIN Normal [facility] Prep for Procedureon 024 Prep for Procedure [id number] Indio Ibanez as L 1960 M Date Provider Department Center 12/31/2023 Michelle-LETI RYAN [facility] Family History Problem Relation Age of Onset Cancer Mother Cancer Father Diabetes Sister Cancer Brother Diabetes Brother Family Status - Relation Status Age at Mother Father Sister Brother Normal [facility] Office Visiton 12-29-2023 Follow-up visit [id number] MarcelleIndio hagan as L 1960 M Date Provider Department Center 12/29/2023 MATT STANFORD Family History Problem Relation Age of Onset Cancer Mother Cancer Father Diabetes Sister Cancer Brother Diabetes Brother Family Status - Relation Status Age at Mother Father Sister Brother Level of Service:34012 OR OFFICE/OUTPATIENT ESTABLISHED HIGH MDM 40 MIN Normal [facility] Office Visiton 09-29-2023 Follow-up visit [id number] MarcelleIndio hagan as L 1960 M Date Provider Department Center 09/29/2023 MATT STANFORD Family History Problem Relation Age of Onset Cancer Mother Cancer Father Diabetes Sister Cancer Brother Diabetes Brother Family Status - Relation Status Age at Mother Father Sister Brother Level of Service:30908 OR OFFICE/OUTPATIENT ESTABLISHED LOW MDM 20 MIN Normal [facility] 06-22-2023 [facility] Electrophysiology Consult Note Reason for [...] one point was being seeing by [facility] EP for PPM but no PPM [...] Toprol-XL and verapamil. He was seen by Ismael CHENEY on 03/26/2023. given the symptoms the [...] triglycerides 162, hemoglobin A1c 5.[address] [facility] cardiology 09/2020 HISTORY OF PRESENT ILLNESS: [...] on file Intimate Partner Violence: Unknown (04/10/2023) [place] Safety & Environment Fear of Current or [...] Exam: Constitutional Gener (more content not included)... [facility] NURSNOTEon 06-22-2023 NURSNOTE RN educated pt on d/ c instructions. RN encouraged pt to voice any questions or concerns. Pt verbalizes no questions or concerns at this time. Pt was wheeled off of unit with all of belongings. [facility] Office Visiton 06-02-2023 Follow-up visit [id number] Indio Ibanez 1960 M Date Provider Department Center 06/02/2023 MATT STANFORD [facility] Family History Problem Relation Age of Onset Cancer Mother Cancer Father Diabetes Sister Cancer Brother Diabetes Brother Family Status - Relation Status Age at Mother Father Sister Brother Level of Service:95534 OR OFFICE/OUTPATIENT NEW MODERATE MDM 45 MINUTES [facility] CBC AUTO DIFFon 12-14-2021 BASO # 0.0 103/ul Normal 0.0-0.1 [facility] Comment on above: Performed By: #### C BC #### [facility] [address] [place] [address] Dr. Pérez Mg Basophils/100 WBC (Bld) 0.6 % Normal 0.2-2.0 [facility] Comment on above: Performed By: #### C BC #### [facility] [address] [address] [address] Pérez Mg EO # 0.5 103/ul Normal 0.0-0.7 [facility] Comment on above: Performed By: #### C BC #### [facility] [address] [address] [address] Pérez Mg Eosinophils/100 WBC (Bld) 8.6 % Critically high 0.9-7.0 [facility] Comment on above: Performed By: #### C BC #### [facility] [address] [address] [address] Pérez Mg Erythrocyte distribution width (RBC) [Ratio] 13.2 % Normal 11.0-15.0 [facility] Comment on above: Performed By: #### C BC #### [facility] [address] [address] [address] Pérez Mg Hematocrit (Bld) [Volume fraction] 43.2 % Normal 42.0-54.0 [facility] Comment on above: Performed By: #### C BC #### [facility] [address] [address] [address] Pérez Mg Hemoglobin (Bld) [Mass/Vol] 14.6 g/dL Normal 14.0-18.0 [facility] Comment on above: Performed By: #### C BC #### [facility] [address] [address] [address] Pérez Mg IG # 0.06 10e3/ul Critically high 0.00-0.03 [facility] Comment on above: Performed By: #### C BC #### [facility] [address] [address] [address] Pérez Mg IG % 1.0 % Critically high 0.0-0.5 [facility] Comment on above: Performed By: #### C BC #### [facility] [address] [address] [address] Pérez Mg LYMPH # 1.1 103/ul Critically low 1.2-3.8 [facility] Comment on above: Performed By: #### C BC #### [facility] [address] [address] [address] Pérez Mg Lymphocytes/100 WBC (Bld) 17.5 % Critically low 20.5-60.0 [facility] Comment on above: Performed By: #### C BC #### [facility] [address] [place] [address] Dr. Pérez Mg MANUAL DIFF REQ NO Normal [facility] Comment on above: Performed By: #### C BC #### [facility] [address] [place] [address] Dr. Pérez Mg MCH (RBC) [Entitic mass] 29.0 pg Normal 25.9-34.0 [facility] Comment on above: Performed By: #### C BC #### [facility] [address] [place] [address] Dr. Pérez Mg MCHC (RBC) [Mass/Vol] 33.8 g/dL Normal 29.9-35.2 [facility] Comment on above: Performed By: #### C BC #### [facility] [address] [place] [address] Dr. Pérez Mg MCV (RBC) [Entitic vol] 85.9 fL Normal 80.0-94.0 [facility] Comment on above: Performed By: #### C BC #### [facility] [address] [place] [address] Dr. Pérez Mg MONO # 0.5 103/ul Normal 0.3-0.8 [facility] Comment on above: Performed By: #### C BC #### [facility] [address] [place] [address] Dr. Pérez Mg Monocytes/100 WBC (Bld) 8.3 % Normal 1.7-12.0 [facility] Comment on above: Performed By: #### C BC #### [facility] [address] [place] [address] Dr. Pérez Mg NEUT # 4.0 103/ul Normal 1.4-6.5 [facility] Comment on above: Performed By: #### C BC #### [facility] [address] [place] [address] Dr. Pérez Mg Neutrophils/100 WBC (Bld) 64.0 % Normal 43.0-75.0 [facility] Comment on above: Performed By: #### C BC #### [facility] [address] [place] [address] Dr. Pérez Mg Platelet mean volume (Bld) [Entitic vol] 9.1 fL Critically low 9.5-13.5 [facility] Comment on above: Performed By: #### C BC #### [facility] [address] [place] [address] Dr. Pérez Mg PLT 213 103/ul Normal 150-450 [facility] Comment on above: Performed By: #### C BC #### [facility] [address] [address] [address] Pérez Mg RBC 5.03 106/ul Normal 4.70-6.10 [facility] Comment on above: Performed By: #### C BC #### [facility] [address] [place] [address] Dr. Pérez Mg WBC 6.3 103/ul Normal 4.0-11.0 [facility] Comment on above: Performed By: #### C BC #### [facility] [address] [place] [address] Dr. Pérez Mg GLYCOHEMOGLOBIN A1Con 2021 ADA RECOMMENDATION SEE BELOW Normal [facility] Comment on above: Result Comment: ADA RECOMMENDED LIMIT 4.0 - 6.0 ADA THERAPEUTIC TARGET < 7.0 ACTION SUGGESTED > 7.0 Performed By: #### A 1C #### [facility] [address] [place] [address] Dr. Pérez Mg Glucose [Mass/Vol] 105 mg/dL Normal [facility] Comment on above: Performed By: #### A 1C #### [facility] [address] [place] [address] Dr. Pérez Mg HbA1c (Bld) [Mass fraction] 5.3 % Normal 4.5-6.2 [facility] Comment on above: Performed By: #### A 1C #### [facility] [address] [place] [address] Dr. Pérez Mg LIPID PROFILEon 12-14-2021 CHOL-HDL RATIO NORM SEE BELOW Normal [facility] Comment on above: Result Comment: 3.3 - 4.4 LOW RISK 4.4 - 7.1 AVERAGE RISK 7.1 - 11.0 MODERATE RISK >11.0 HIGH RISK Performed By: #### L IPID, CMP #### [facility] [address] [address] [address] Pérez Mg Cholesterol [Mass/Vol] 201 mg/dL Critically high <=200 [facility] Comment on above: Performed By: #### L IPID, CMP #### [facility] [address] [address] [address] Pérez Mg Cholesterol in HDL [Mass/Vol] 41 mg/dL Normal 40-60 [facility] Comment on above: Performed By: #### L IPID, CMP #### [facility] [address] [address] [address] Pérez Mg Cholesterol in LDL [Mass/Vol] 122.8 mg/dL Normal [facility] Comment on above: Performed By: #### L IPID, CMP #### [facility] [address] [place] [address] Dr. Pérez Mg Cholesterol.total/Ch olesterol in HDL [Mass ratio] 4.9 {ratio} Normal [facility] Comment on above: Performed By: #### L IPID, CMP #### [facility] [address] [place] [address] Dr. Pérez Mg HDL NORMAL > or = 60 mg/dl - LO W CARDIOVASCULAR RISK <40 mg/dl - HIGH CARDIOVASCULAR RISK Normal [facility] Comment on above: Performed By: #### L IPID, CMP #### [facility] [address] [place] [address] Dr. Pérez Mg LDL CALC NORMAL SEE BELOW Normal [facility] Comment on above: Result Comment: <100 mg/dl OPTIMAL 100 - 129 mg/dl NEAR OR ABOVE OPTIMAL 130 - 159 mg/dl BORDERLINE HIGH 160 - 189 mg/dl HIGH >190 mg/dl VERY HIGH Performed By: #### L IPID, CMP #### [facility] [address] [place] [address] Dr. Pérez Mg Triglyceride [Mass/Vol] 186 mg/dL Critically high <=150 [facility] Comment on above: Performed By: #### L IPID, CMP #### [facility] [address] [address] [address] Pérez Mg VLDL CALC 37.2 mg/dL Normal [facility] Comment on above: Performed By: #### L IPID, CMP #### [facility] [address] [address] [address] Pérez Mg PROF 14(COMP METB)on 022 Albumin [Mass/Vol] 3.9 g/dL Normal 3.4-5.0 [facility] Comment on above: Performed By: #### L IPID, CMP #### [facility] [address] [place] [address] Dr. Pérez Mg Albumin/Globulin [Mass ratio] 1.1 {ratio} Normal [facility] Comment on above: Performed By: #### L IPID, CMP #### [facility] [address] [place] [address] Dr. Pérez Mg ALP [Catalytic activity/Vol] 65 U/L Normal 46-116 [facility] Comment on above: Performed By: #### L IPID, CMP #### [facility] [address] [place] [address] Dr. Pérez Mg ALT [Catalytic activity/Vol] 41 U/L Normal 16-63 [facility] Comment on above: Performed By: #### L IPID, CMP #### [facility] [address] [place] [address] Dr. Pérez Mg Anion gap [Moles/Vol] 10.3 mmol/L Normal [facility] Comment on above: Performed By: #### L IPID, CMP #### [facility] [address] [place] [address] Dr. Pérez Mg AST [Catalytic activity/Vol] 33 U/L Normal 15-37 [facility] Comment on above: Performed By: #### L IPID, CMP #### [facility] [address] [place] [address] Dr. Pérez Mg Bilirubin [Mass/Vol] 0.5 mg/dL Normal 0.2-1.0 [facility] Comment on above: Performed By: #### L IPID, CMP #### [facility] [address] [address] [address] Pérez Mg Calcium [Mass/Vol] 9.0 mg/dL Normal 8.5-10.1 [facility] Comment on above: Performed By: #### L IPID, CMP #### [facility] [address] [place] [address] Dr. Pérez Mg Chloride [Moles/Vol] 103 mmol/L Normal 98-107 [facility] Comment on above: Performed By: #### L IPID, CMP #### [facility] [address] [place] [address] Dr. Pérez Mg CO2 [Moles/Vol] 27.7 mmol/L Normal 21.0-32.0 [facility] Comment on above: Performed By: #### L IPID, CMP #### [facility] [address] [place] [address] Dr. Pérez Mg Creatinine [Mass/Vol] 0.73 mg/dL Normal 0.70-1.30 [facility] Comment on above: Performed By: #### L IPID, CMP #### [facility] [address] [place] [address] Dr. Pérez Mg EGFR-AF KITTITIAN >60 Normal >=60 [facility] Comment on above: Performed By: #### L IPID, CMP #### [facility] [address] [place] [address] Dr. Pérez Mg EGFR-NON AF KITTITIAN >60 Normal >=60 [facility] Comment on above: Performed By: #### L IPID, CMP #### [facility] [address] [place] [address] Dr. Pérez gM Globulin (S) [Mass/Vol] 3.6 g/dL Normal [facility] Comment on above: Performed By: #### L IPID, CMP #### [facility] [address] [place] [address] Dr. Pérez Mg Glucose [Mass/Vol] 110 mg/dL Critically high 74-106 [facility] Comment on above: Performed By: #### L IPID, CMP #### [facility] [address] [address] [address] Pérez Mg Potassium [Moles/Vol] 4.0 mmol/L Normal 3.5-5.1 [facility] Comment on above: Performed By: #### L IPID, CMP #### [facility] [address] [place] [address] Dr. Pérez Mg Protein [Mass/Vol] 7.5 g/dL Normal 6.4-8.2 [facility] Comment on above: Performed By: #### L IPID, CMP #### [facility] [address] [place] [address] Dr. Pérez Mg Sodium [Moles/Vol] 137 mmol/L Normal 136-145 [facility] Comment on above: Performed By: #### L IPID, CMP #### [facility] [address] [place] [address] Dr. Pérez Mg Urea nitrogen [Mass/Vol] 16.0 mg/dL Normal 7.0-18.0 [facility] Comment on above: Performed By: #### L IPID, CMP #### [facility] [address] [place] [address] Dr. Pérez Mg Urea nitrogen/Creatinine [Mass ratio] 21.9 mg/mg Normal [facility] Comment on above: Performed By: #### L IPID, CMP #### [facility] [address] [place] [address] Dr. Pérez Dee 01-28-2021 AUGUSTINEN Telephone (SAMUELMN) NITZA IBANEZ ([id number]) 1960 M Date Time Provider Department 01/28/21 SHAQ LUNA During your visit today, we recorded the following information about you: Ha Silveira 01/28/2021 2:35 PM Signed Outside medical records uploaded to [employer]: CT/OT - CTA chest with contrast - [...] mouth daily as directed. As directed by [facility] coumadin clinic. - levothyroxine (SYNTHROID) [...] Status:Closed by ANA FRAZIER on 01/28/21 Normal [facility] CNOVon 09-26-2020 CNOV Office Visit (CARIMN ) NITZA IBANEZ ([id number]) 1960 M Date Time Provider Department 09/26/20 12:30 PM NIMO ALTMAN During your visit today, we recorded the following information about you: Pulse Respiration Blood pressure Weight 63/minute 12/minute 176/72 69.4 kg Height 1.778 m Nimo Altman MD 10/24/2020 11:55 AM [facility] [place] Indra Tse Department of Cardiovascular Medicine SECTION OF CARDIOVASCULAR IMAGING OUTPATIENT VISIT DATE September 26, 2020 OUTPATIENT VISIT TYPE NEW PRIMARY CARE PHYSICIAN: Nehemiah Jimenez MD [address] [id number] REFERRING PHYSICIAN: Shaq Luna [address] [facility] [id number] CHIEF COMPLAINT: Valvular heart disease HISTORY OF [...] mouth daily as directed. As directed by [facility] coumadin clinic. levothyroxine (SYNTHROID) 25 [...] (more content not included)... Normal [facility] CNOVon 07-26-2020 CNOV Office Visit (CARDMN ) NITZA IBANEZ ([id number]) 1960 M Date Time Provider Department 07/26/20 [...] fibrillation, sudden deaths. 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 . Daughter A AND W. 2 grandchildren. Lives in [place], [place]. Habits: Tobacco: none. Alcohol: never. Caffeine: [...] (more content not included)... Normal [facility]IT[facility] IBANE[facility] ([id number]) 1960 M Date Time Provider Department 07/20/20 SHAQ LUNA During your visit today, we recorded the following information about you: Ha Duvall 07/20/2020 4:14 PM Signed Outside medical records scanned into [employer]. Patient scheduled to see Dr. Shaq Luna on July 26, 2020. Allergies As of Date: 07/20/2020 (Not on File) Date Reviewed: Never Reviewed Reason for Visit: Received Outside Medical Records [3576] Problem List As Of Date: 07/20/2020 (None) Encounter Status:Closed by HA VALLES on 07/20/20 [facility] CNCOon 07-05-2020 CNCO Letter Text [facility] CNPNon 06-26-2020 CNPN Telephone (REFPHY) NITZA IBANEZ ([id number]) 1960 M Date Time Provider Department 06/26/20 NO PCP (HISTORICAL) REFPHY During your visit today, we recorded the following information about you: Aj Saez 06/26/2020 12:18 PM Signed Patient: Nitza Brown Marcelle Date of : 1960 Patient phone number: [phone] Referring Provider for the encounter: Nehemiah Jimenez Requesting Provider: Someone that specializes in Valve Disease Reason for requesting visit (RFV/signs and symptoms/diagnosis): Bradycardia, tachycardia Person calling: self Return call to: self Medical Records/Insurance Card scanned into [employer]: Yes Comments: Valve Replacement X2 Allergies As of Date: 06/26/2020 (Not on File) Date Reviewed: Never Reviewed Reason for Visit: External Referrals/resources [909] Problem List As Of Date: 06/26/2020 (None) Encounter Status:Closed by AJ SAEZ on 06/26/20 Normal [facility] Complete Blood Count Auto Di ffon 05-28-2018 Basophils #/vol (Bld) 0.0 10*3/uL Normal 0.0-0.2 [facility] Comment on above: Order Comment: Comme nt send tubes to 210 Result Comment: PERF ORMED BY: [place] [address] PATHOLOGIST GIRL FRIDAY LESLYE GONZALEZ M.D. Performed By: #### C BC #### [address] Basophils/100 WBC (Bld) 0.7 % Normal . [facility] Comment on above: Order Comment: Comme nt send tubes to 210 Performed By: #### C BC #### [facility] [address] [place] [address] Eosinophils #/vol (Bld) 0.3 10*3/uL Normal 0.0-0.45 [facility] Comment on above: Order Comment: Comme nt send tubes to 210 Performed By: #### C BC #### [address] Eosinophils/100 WBC (Bld) 6.0 % Normal . [facility] Comment on above: Order Comment: Comme nt send tubes to 210 Performed By: #### C BC #### [address] Erythrocyte distribution width Ratio (RBC) 14.1 % Normal 12.0-14.8 [facility] Comment on above: Order Comment: Comme nt send tubes to 210 Performed By: #### C BC #### [address] Hematocrit Volume Fraction (Bld) 44.5 % Normal 38.8-50.0 [facility] Comment on above: Order Comment: Comme nt send tubes to 210 Performed By: #### C BC #### [address] Hemoglobin mass conc (Bld) 15.1 g/dL Normal 13.0-17.0 [facility] Comment on above: Order Comment: Comme nt send tubes to 210 Performed By: #### C BC #### [address] Lymphocytes #/vol (Bld) 0.7 10*3/uL Low 1.00-4.8 [facility] Comment on above: Order Comment: Comme nt send tubes to 210 Performed By: #### C BC #### [address] Lymphocytes/100 WBC (Bld) 11.9 % Normal . [facility] Comment on above: Order Comment: Comme nt send tubes to 210 Performed By: #### C BC #### [address] MCH Entitic mass (RBC) 33.9 g/dL Normal 32.5-35.6 [facility] Comment on above: Order Comment: Comme nt send tubes to 210 Performed By: #### C BC #### [address] MCH Entitic mass (RBC) 28.8 pg Normal 27.5-35.2 [facility] Comment on above: Order Comment: Comme nt send tubes to 210 Performed By: #### C BC #### [address] MCV Entitic volume (RBC) 85.0 fL Normal 83.5-101 [facility] Comment on above: Order Comment: Comme nt send tubes to 210 Performed By: #### C BC #### [facility] [address] [place] [address] Monocytes #/vol (Bld) 0.7 10*3/uL Normal 0.0-0.8 [facility] Comment on above: Order Comment: Comme nt send tubes to 210 Performed By: #### C BC #### [place] [address] [place] Monocytes/100 WBC (Bld) 11.8 % Normal . [facility] Comment on above: Order Comment: Comme nt send tubes to 210 Performed By: #### C BC #### [facility] [address] [place] [address] Neutrophils #/vol (Bld) 3.9 10*3/uL Normal 1.8-7.7 [facility] Comment on above: Order Comment: Comme nt send tubes to 210 Performed By: #### C BC #### [facility] [address] [place] [address] Neutrophils/100 WBC (Bld) 69.6 % Normal . [facility] Comment on above: Order Comment: Comme nt send tubes to 210 Performed By: #### C BC #### [facility] [address] [place] [address] Nucleated RBC/100 WBC Ratio (Bld) 0.0 % Normal 0-0.5 [facility] Comment on above: Order Comment: Comme nt send tubes to 210 Performed By: #### C BC #### [facility] [address] [place] [address] Platelet mean volume Entitic volume (Bld) 7.4 fL Normal 6.6-10.1 [facility] Comment on above: Order Comment: Comme nt send tubes to 210 Performed By: #### C BC #### [facility] [address] [place] [address] Platelets #/vol (Bld) 237 10*3/uL Normal 150-450 [facility] Comment on above: Order Comment: Comme nt send tubes to 210 Performed By: #### C BC #### [facility] [address] [place] [address] [place] RBC #/vol (Bld) 5.24 10*6/uL Normal 3.90-5.60 [facility] Comment on above: Order Comment: Comme nt send tubes to 210 Performed By: #### C BC #### [facility] [address] [place] [address] [place] WBC #/vol (Bld) 5.6 10*3/uL Normal 4.1-10.5 [facility] Comment on above: Order Comment: Javon alejo send tubes to 210 Performed By: #### C #### [facility] [address] [id number] [facility] James 05-28-2018 L -- ---- Specimen: [id number] Received: 05/28/18 Status: CAIO Scott Num: [id number] Spec Type: Surgical Subm Dr: Jim Jules Jr, Tissues: A Colon - Polyp (SIGMOID POLYP) Procedures: PRAVEEN Stain/2, Gross/Vipin L4 ---- Patient Age/Sex Location Account Attending Physician ---- Nitza Ibanez/Jenna [id number] Jim Jules Jr, ---- SPEC NUM: RECD: 05/28/18 STATUS: CAIO SCOTT NUM: [id number] MARITO: 05/28/18 [facility] DR: Jim Jules Jr, DO ENTERED: 05/28/[address] [facility] [address]: SPEC TYPE: Surgical DEPT: S [...] microscopic findings support the above pathologic diagnosis. [id number]. - - SIGMOID POLYP ---- ---- Specimen: Received: 05/28/18 Status: CAIO Villegasdeondre Num: [id number] Spec Type: Surgical Subm Dr: Jim Jules Jr, DO Tissues: A Colon - Polyp (SIGMOID POLYP) Procedures: HE Stain/2, Gross/Micro L4 ---- Patient: Nitza Ibanez [id number] (Continued) ---- Signed (signature on file) Leslye Gonzalez MD 05/31/18 1553 Normal [facility] Partial Thromboplastin Timeo n 05-28-2018 aPTT Coag time (Bld) 40.4 s High 23.0-35.0 [facility] Comment on above: Order Comment: Comme nt send tubes to 210 Result Comment: PERF ORMED BY: [place] [address] PATHOLOGIST GIRL FRIDAY LESLYE GONZALEZ M.D. Performed By: #### P T, PTT #### [address] Prothrombin Time INRon 05-28 INR Coag RelTime (PPP) 1.4 {INR} Normal [facility] Comment on above: Order Comment: Comme [...] Performed By: #### P T, PTT #### [facility] [address] [id number] [facility] Prothrombin time (PT) Coag time (PPP) 16.4 s High 9.0-12.9 [facility] Comment on above: Order Comment: Comme nt send tubes to 210 Performed By: #### P T, PTT #### [facility] [address] [id number] [facility] Encounters Encounter Date Encounter Type Care Provider Facility Start: 05-19-2024 ambulatory [facility] Start: 04-14-2024 ambulatory [facility] Start: 03-16-2024 End: 03-16-2024 ambulatory RHONDA ALLEN [facility] Start: 03-01-2024 ambulatory Kevin FRANCO Facility :[facility] Start: 02-26-2024 ambulatory [facility] Start: 02-04-2024 Evaluation and manag ement of inpatient [facility] Start: 02-04-2024 ambulatory [facility] Start: 02-04-2024 End: 02-05-2024 Evaluation and management of inpatient [facility] Start: 01-26-2024 End: 01-26-2024 ambulatory [facility] Start: 01-08-2024 ambulatory [facility] Start: 12-29-2023 End: 12-29-2023 ambulatory [facility] Start: 12-28-2023 ambulatory [facility] Start: 12-21-2023 ambulatory [facility] Start: 11-18-2023 ambulatory JUAN CROFT [facility] Start: 10-21-2023 End: 10-21-2023 Bamboo flowsheet Macarena Garcia DO Work Phone: [facility] Start: 10-21-2023 End: 10-21-2023 Bamboo flowsheet Macarena Garcia DO Work Phone: [facility] Start: 10-21-2023 End: 10-21-2023 ambulatory MACARENA GARCIA Not Available Start: 10-21-2023 End: 10-21-2023 Office consultation new/estab patient 60 min Macarena Garcia DO Work Phone: [facility] Comment on above: Primary insomnia (Pr imary Dx); ANNETTE (obstructive sleep apnea); Hypoxia; Hypersomnia; Inadequate sleep hygiene; Snoring; Atrial fibrillation, unspecified type (CMS/HCC) Start: 10-20-2023 ambulatory [facility] Start: 09-29-2023 End: 09-30-2023 ambulatory [facility] Start: 08-11-2023 ambulatory [facility] Start: 06-22-2023 End: 06-22-2023 ambulatory [facility] Start: 06-02-2023 End: 06-02-2023 ambulatory [facility] Start: 11-05-2022 Refill Shaq Amezcua Work Phone: Cardiology Comment on above: Refill Request Start: 12-18-2021 Encounter for genera l adult medical examination without abnormal findings DR NEHEMIAH JIMENEZ [facility] Start: 12-14-2021 End: 12-15-2021 ambulatory [...] Comment on above: Performed By: #### P [facility] #### [facility] [address] [address] [address] Pérez Mg Plan of Treatment Date Care Activity Detail Author Start: 11-08-2024 End: 11-08-2024 Patient encounter procedure 11/08/2024 3:00 PM EDT [facility] [address] [place] [id number] Macarena Garcia, DO [address] [place] [address] [facility] Start: 10-21-2023 End: 10-20-2024 Pulse oximetry, overnight Pulse oximetry, overnight Respiratory Care Routine Primary insomnia Expected: 10/21/2023 (Approximate), Expires: 10/20/2024 [facility] Work Phone: Comment on above: Expected: 10/21/2023 (Approximate), Expires: 10/20/2024 Start: 10-18-2023 Influenza vaccination Influenza Vacc ine (#1) [facility] Start: 10-17-2022 Influenza vaccination Influenza Vacc ine (#1) [facility] Start: 02-16-2022 Depression Assessment Depression Ass essment [facility] Start: 10-17-2021 Influenza vaccination INFLUENZA (#1) [facility] Start: 06-18-2020 COVID-19 VACCINE (2 - Booster for Rowdy series) COVID-19 VACCINE (2 - Booster for Rowdy series) [facility] Start: 2014 PROSTATE CANCER SCREENING DISCUSSION PROSTATE CANCER SCREENING DISCUSSION [facility] Start: 2009 SHINGRIX VACCINE (1 of 2) SHINGRIX VACCINE (1 of 2) [facility] Start: 2004 COLOGUARD (FIT-DNA) COLOGUARD (FIT-D NA) [facility] Start: 2004 Colonoscopy COLONOSCOPY [facility] Start: 2004 COLORECTAL CANCER SCREENING COLORECTAL CANCER SCREENING [facility] Start: [address] COLONOGRAPHY [facility] Start: 2004 DIABETES SCREEN DIABETES SCREEN [facility] Start: 2004 Diabetes Screening Diabetes Screenin g [facility] Start: 2004 FECAL OCCULT BLOOD FECAL OCCULT BLOO D [facility] Start: 2004 SIGMOIDOSCOPY SIGMOIDOSCOPY [facility] Start: 1994 Lipid 1996 panel - S brandon or Plasma Lipid Screening [facility] Start: 1994 LIPID SCREEN LIPID SCREEN [facility] Start: 1978 Urine microalbumin profile [facility] Start: 1977 ANNUAL PCP TEAM LIVE IN COMPANION ALAN DISEASE VISIT ANNUAL PCP TEAM CHRONIC DISEASE VISIT [facility] Start: 1977 BP CONTROLLED (<130/80) BP CONTROLLE D (<130/80) [facility] Start: 1977 HEPATITIS C SCREENING HEPATITIS C SC REENING [facility] Start: 1977 HIV SCREENING HIV SCREENING [facility] Start: 1971 Adult depression screening assessment DEPRESSION SCREENING [facility] Start: 1959 Screening for malign ant neoplasm of colon [facility] Immunizations Immunization Date Immunization Notes Care Provider Fa cility 12-28-2019 influenza virus vacc ine, unspecified formulation Shaq Luna MD Work Phone: [facility] Payers Date Payer Category Payer Unknown [id number] 2020 Unknown [id number] 2013 Unknown [facility] [id number] 2013-Present O [id number] 1959 Unknown [id number] 1959 Unknown [id number] 1959 Unknown [id number] 1959 Unknown [id number] 1959 Self-pay 1959 Unknown [id number] Social History Date Type Detail Facility Tobacco smoking stat [facility] Unknown if ever smoked [facility] Start: 1960 Sex Assigned At Not on file [facility] Start: 07-26-2020 Tobacco smoking stat [facility] Never smoked tobacco [facility] Work Phone: Start: 07-26-2020 Tobacco use and exposure Smokeless tobacco non-user [facility] Work Phone: Start: 09-26-2020 Alcohol intake Lifetime non-d jose e (finding) [facility] Start: 07-26-2020 History SDOH Alcohol Frequency 1 [facility] Start: 07-26-2020 End: 09-26-2020 History of Social function [facility] Start: 07-26-2020 End: 09-26-2020 Tobacco use panel [facility] National Score (1-100), lower number is lower risk Not on file [facility] Tobacco smoking stat [facility] Tobacco smoking consumption unknown [facility] Clinical Notes 06-26-2020 to 03-16-2024 Macarena Garcia, - 10/21/2023 1:30 PM EDTTelephone Encounter - Mary Fowler - 11/05/2022 9:55 AM EDTTelephone Encounter - Ha Silveira - 09/25/2021 7:16 AM EDT Note Date & Type Note Facility 03-16-2024 Note SUBJECTIVE Nitza Ibanez is a 64 y.o. year old male patient being seen for No chief complaint on file. HPI 03/16/2024: Office Vist PMH of a-fib s/p ablation January 2024. 12 lead today reviewed SR. Denies chest pain, SOB, dizziness. Endorses a few short palpitations last < a few seconds. Otherwise, no complaints. 02/04/24 Pt here for AF ablation. Hospital Course - January Nitza Ibanez is a 63-year-old male patient [...] discharge patient home with close outpatient follow-up. 12/29/23 Patient here for 3 mo follow up PAF, hypertension, and valvular heart disease. He's been noticing more frequent palpitations lately. Denies SOB and lightheadedness, but does admit to some chest soreness . Patient noted to have atrial fibrillation on October 12, 2023 which lasted for 40 minutes and much more rapid RVR was seen on October 10 Past Medical History: Diagnosis Date Abnormal ECG Aneurysm of ascending aorta without rupture (CMS/HCC) Aortic valve replaced Arrhythmia Atrial fibrillation (CMS/HCC) Cardiomegaly GERD (gastroesophageal reflux disease) H/O mitral valve replacement with mechanical valve Hyperlipidemia Hypertension Marfan's syndrome Peyronie's syndrome Pulmonary hypertension (CMS/HCC) Ventricular hypertrophy Past Surgical History: Procedure Laterality Date ABLATION OF DYSRHYTHMIC FOCUS AORTIC VALVE REPLACEMENT CHOLECYSTECTOMY COLONOSCOPY W/ BIOPSIES AND POLYPECTOMY MITRAL VALVE REPLACEMENT Patient Active Problem List Diagnosis Atrial fibrillation (CMS/HCC) Chest pain Presence of prosthetic heart valve Primary hypertension Rheumatic mitral stenosis Thoracic aortic aneurysm without rupture (CMS/HCC) Unstable angina (CMS/HCC) PAF (paroxysmal atrial fibrillation) (CMS/HCC) Screening for colorectal cancer ANNETTE (obstructive sleep apnea) Hypothyroidism Paroxysmal A-fib (CMS/HCC) Paroxysmal atrial fibrillation (CMS/HCC) Persistent atrial fibrillation (CMS/HCC) family history includes Cancer in his brother, father, and mother; Diabetes in his brother and sister. Social History Tobacco Use Smoking status: Never Smokeless tobacco: Never Vaping Use Vaping status: Never Used Substance Use Topics Alcohol use: Not Currently Drug use: Never ROS OBJECTIVE Visit Vitals BP (!) 154/92 (BP Location: Right arm, Patient Position: Sitting) Pulse 87 Ht 1.778 m (5' 10 ) Wt 71.7 kg (158 lb) SpO2 97% BMI 22.67 kg/m??? Smoking Status Never BSA 1.88 m??? Physical Exam Constitutional: No acute distress. Psychiatric: Mental Status: alert and normal affect. Insight: good judgement. Eyes: Lids and Conjunctivae: non-injected and no discharge. Pupils: PERRLA. Neck: Neck: supple and trachea midline. Jugular Veins: normal jugular venous pressure. Lungs: Respiratory Effort: unlabored. Auscultation: no rales or rhonchi and normal breath sounds. Cardiovascular: Rate And Rhythm: regular. Heart Sounds: normal S1 and S2. Systolic Murmur: not heard. Diastolic Murmur: not heard. Extremities: no cyanosis, edema, or peripheral signs of emboli. Peripheral Pulses: Pulses: full and equal in all extremities except if noted. Abdomen: Inspection and Palpation: non distended or tender and soft. Skin: Inspection and Palpation: warm and dry. Allergies No Known Allergies Medications Current Outpatient Medications: famotidine (Pepcid) 20 mg tablet, Take 1 tablet (20 mg) by mouth two times daily., Disp: 60 tablet, Rfl: 0 ferrous sulfate 325 (65 Fe) MG EC tablet, Take 65 mg of iron by mouth with breakfast. Do not crush, chew, or split., Disp: , Rfl: lamoTRIgine (LaMICtal) 100 mg tablet, Take 100 mg by mouth at bedtime., Disp: , Rfl: levothyroxine (Synthroid, Levoxyl) 25 mcg tablet, Take 35.5 mcg by mouth before breakfast., Disp: , Rfl: losartan (Cozaar) 50 mg tablet, Take 50 mg by mouth 2 times daily., Disp: , Rfl: metoprolol succinate XL (Toprol-XL) 100 mg 24 hr tablet, Take 0.5 tablets by mouth two times daily. Do not crush or chew., Disp: , Rfl: omeprazole (PriLOSEC) [address] capsule, Take 1 capsule (40 mg) by mouth before breakfast. Do not crush or chew., Disp: 30 capsule, Rfl: 0 pravastatin (Pravachol) 40 mg tablet, Take 40 mg by mouth at bedtime., Disp: , Rfl: verapamil SR (Calan-SR) 180 mg ER tablet, Take 1 tablet (180 mg) by mouth at bedtime. (Patient taking differently: Take 0.5 tablets by mouth 2 times daily.), Disp: 30 tablet, Rfl: 11 warfarin (Coumadin) 5 mg tablet, Take 5-7.5 mg by mouth at bedtime., Disp: , Rfl: Recent Labs Admission on 02/03 (more content not included)... [facility] 03-16-2024 Note Patient here for fol low up afib ablation performed on 02/04/[address] Willis. Has a little chest soreness s/p ablation. Denies SOB, lightheadedness/syncope, and bleeding on warfarin. Review of Systems Cardiovascular: Positive for chest pain ( soreness ) and palpitations ( once in awhile ). All other systems reviewed and are negative. [facility] 02-04-2024 Note Treatment Plan: Patient was seen at bedside by me. He appeared to be in no acute distress, resting in bed. He is hemodynamically stable. Right groin access site appeared to be clean, no oozing, bleeding, or bruising noted. Mild tenderness to deep palpation. Will keep gauze and dressing on access site over night. Signed, Kathryn Fleming MD PGY-4 Freelance Graphic Designer [facility] Pager: [phone] [facility] 02-04-2024 Note 02/04/241814 Provider Notification Reason for Communication Change in status Provider Name Cardiology Method of Communication Page Response Waiting for response Notification Time 1814 Communication Comments Patient developing swelling around right cath site. Oozing prsent when pushing on swelling RN in at bedside to complete cath check and noticed swelling on the right groin where the right fem was accessed during the cath. Area was soft, but was swollen, painful upon touch and pressure, and new bleeding noted on dressing. power project manager Victorina reyes at bedside, held pressure for 10-15 minutes. While pressure was being applied, blood noted to be oozing from cath site. After 15 minutes, pressure dressing applied. Cardiology paged at this time for an update- awaiting call back. [facility] 02-04-2024 Note ATRIAL FIBRILLATION ABLATION PROCEDURE NOTE [...] one point was being seeing by [facility] EP for PPM but no PPM [...] Toprol-XL and verapamil. He was seen by Ismael CHENEY on 03/26/2023. given the symptoms the [...] Coumadin ridge. Esophagus was mapped using the [employer] 3D mapping software and noted to be [...] isolated. I ens (more content not included)... [facility] 02-04-2024 Note Patient: Nitza larios Procedure Summary Date: 02/04/24 Room / Location: [facility] FINISH REPAIRER 1 EP / [facility] HV VASCULAR LAB (Cath) Anesthesia Start: 0841 Anesthesia Stop: 121 Procedure: Ablation a-fib paroxysmal Diagnosis: PAF (paroxysmal [...] no known notable events for this encounter. [facility] 02-04-2024 Note Airway Date/Time: 02/04/2024 8:59 AM Urgency: elective Airway not difficult General Information and Staff Patient location during procedure: OR Anesthesiologist: Nitza Huntley MD Resident/ENGINE HOSTLER/CAA: Liliya Olmedo MD Performed: resident/ENGINE HOSTLER/CAA Indications and Patient Condition Indications for airway [...] 1 Number of other approaches attempted: 0 [facility] 02-04-2024 Note Patient: Nitza larios Procedure Information Date/Time: 02/04/24 0800 Procedure: Ablation a-fib paroxysmal - PC APPROVE 01/05-03/07 Location: [facility] FINISH REPAIRER 1 EP / [facility] VASCULAR LAB (Cath) Providers: Matt Willis MD [...] Value Ventricular Rate 67 Atrial Rate 67 OR Interval 134 QRS DURATION 118 QT Interval 422 QTC CALCULATION(BAZETT) 445 P [place] 59 R-[place] -27 T Wave [place] -5 Impression Normal sinus rhythm Left ventricular hypertrophy with QRS widening ( R in aVL , Sokolow-[place] , [place] product ) Abnormal ECG No previous ECGs [...] Plan discussed with attending. Additional Equipment Requests [facility] 01-26-2024 Note [place] Electrophysiology Consult Note Reason for visit: AF, [...] one point was being seeing by [facility] EP for PPM but no PPM [...] Toprol-XL and verapamil. He was seen by Ismael CHENEY on 03/26/2023. given the symptoms the [...] triglycerides 162, hemoglobin A1c 5.[address] [facility] cardiology 09/2020 HISTORY OF PRESENT ILLNESS: [...] Resource Strain: Low Risk (09/26/2019) Received from [employer] [facility] [place] Overall Financial Resource Strain (CARDIA) Difficulty of Paying Living Expenses: Not hard at all Food Insecurity: Not on file Transportation Needs: No Transportation Needs (09/26/2019) Received from [facility] - Transportation Lack of Transportation (Medical): No Lack of Transportation (Non-Medical): No Physical Activity: Sufficiently Active (09/26/2019) Received from [facility] Exercise Vital Sign Days of Exercise per Week: 2 days Minutes of Exercise per Session: 150+ min Stress: No Stress Concern Present (09/26/2019) Received from [facility] [place] [facility] - Occupational Stress Questionnaire Feeling of Stress : Only (more content not included)... [facility] 12-29-2023 Note [place] Electrophysiology Consult Note Reason [...] one point was being seeing by [facility] EP for PPM but no PPM [...] Toprol-XL and verapamil. He was seen by Ismael CHENEY on 03/26/2023. given the symptoms the [...] triglycerides 162, hemoglobin A1c 5.[address] [facility] cardiology 09/2020 HISTORY OF PRESENT ILLNESS: [...] daily. metoprolol succinate (more content not included)... [facility] 10-21-2023 History of Present illness Narrative Images from the original note were not included. Chief Complaint Patient presents with Sleep Apnea Subjective Nitza Kevin Ibanez, 63 y.o., male being seen in Sleep Consultaiton at the request of Ismael Croft NP. Dr. Jimenez is his PCP. [...] at work. 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 Past Medical History: Diagnosis Date Backache Disturbance [...] with auto PAP started. He has an [place] Sleepiness scale of 8. More aggressive with [...] was counseled on the risks of stroke, [place], and sudden with ANNETTE, along with the [...] clinic: 1 year documented in this encounter [facility] 09-29-2023 Note [place] Electrophysiology Consult Note Reason for visit: AF, [...] one point was being seeing by [facility] EP for PPM but no PPM [...] Toprol-XL and verapamil. He was seen by Ismael CHENEY on 03/26/2023. given the symptoms the [...] triglycerides 162, hemoglobin A1c 5.[address] [facility] cardiology 09/2020 HISTORY OF PRESENT ILLNESS: [...] on file Intimate Partner Violence: Unknown (04/10/2023) [place] Safety & Environment Fear of Current or [...] of Systems Cardiovascular (more content not included)... [facility] 06-22-2023 Note LOOP IMPLANT PROCEDU RE NOTE [...] the sternum on the left using the [employer] tool. The loop recorder was then injected [...] the incision. Matt Willis MD Cardiac Electrophysiology. [facility] 06-02-2023 Note [place] Electrophysiology Consult Note [...] one point was being seeing by [facility] EP for PPM but no PPM [...] Toprol-XL and verapamil. He was seen by Ismael CHENEY on 03/26/2023. given the symptoms the [...] triglycerides 162, hemoglobin A1c 5.[address] [facility] cardiology 09/2020 HISTORY OF PRESENT ILLNESS: [...] on file Intimate Partner Violence: Unknown (04/10/2023) [place] Safety & Environment Fear of Current or [...] for irregular he (more content not included)... [facility] 11-05-2022 Miscellaneous Notes Call from patient requesting refill. Requested Prescriptions Pending Prescriptions Disp Refills losartan (COZAAR) 50 mg tablet [Pharmacy Med Name: LOSARTAN POTASSIUM 50 MG TAB] 180 tablet 3 Sig: take one tablet by mouth twice a day Patient last seen 09/26/20 Mary Fowler documented in this encounter [facility] 09-25-2021 Miscellaneous Notes Electronic request for refill. Requested Prescriptions Pending Prescriptions Disp Refills losartan (COZAAR) 50 mg tablet [Pharmacy Med Name: LOSARTAN POTASSIUM 50 MG TAB] 180 tablet 3 Sig: TAKE 1 TABLET BY MOUTH TWICE A DAY Last office visit in was 07/26/2020 Ha Silveira documented in this encounter [facility] 09-26-2020 Note HNO ID: [id number] Author: Nimo Altman MD Service: ? Author Type: Physician Type: Progress Notes Filed: 10/24/2020 11:55 AM Note Text: [facility] [place] [facility] Department of Cardiovascular Medicine SECTION OF CARDIOVASCULAR IMAGING OUTPATIENT VISIT DATE September 26, 2020 OUTPATIENT VISIT TYPE NEW PRIMARY CARE PHYSICIAN: Nehemiah Jimenez MD [address] [place] [address] REFERRING PHYSICIAN: Shaq Luna [address] [facility] [address] CHIEF COMPLAINT: Valvular heart disease HISTORY OF [...] mouth daily as directed. [facility]. levothyroxine (SYNTHROID) 25 mcg [...] for: (more content not included)... [facility] 07-26-2020 Note HNO ID: [id number] Author: Joycelyn Weir Service: ? Author Type: ? Type: Progress Notes Filed: 07/26/2020 2:25 PM Note Text: EVENT MONITOR DISPOSABLE PATCH INSTRUCTIONS Patient Name: Nitza Brown [facility] Number: [id number] Skin prepped and cleansed with alcohol Patch secured to prepped area Monitor Activated Serial #: [id number] Patient Instructed: 1.) Prescribed order timeframe 2.) Bathing guidelines 3.) Usage of event button and diary documentation 4.) Return of monitor at the end of prescribed order 5.) Call with problems [phone] or [phone] ext. [phone] Patient expresses a good understanding of instructions Joycelyn Weir [facility] 07-26-2020 Note Education (CARDMN) MARCELLENITZA Brown ([id number]) 1960 M Date Time Provider Department 07/26/20 2:00 PM ARRHYTHMIA MONITORING LAB CARDMN Reason for Visit: ZIO PATCH [Other] Progress Notes: Joycelyn Weir 07/26/2020 2:25 PM Signed EVENT MONITOR DISPOSABLE PATCH INSTRUCTIONS Patient Name: Nitza Brown [facility] Number: [id number] Skin prepped and cleansed with alcohol Patch secured to prepped area Monitor Activated Serial #: [id number] Patient Instructed: 1.) Prescribed order timeframe 2.) Bathing guidelines 3.) Usage of event button and diary documentation 4.) Return of monitor at the end of prescribed order 5.) Call with problems [phone] or [phone] ext. [phone] Patient expresses a good understanding of instructions Joycelyn Weir Primary Visit Diagnosis:AF (paroxysmal atrial fibrillation) ([facility]) [I48.0] Other Visit Diagnoses:Palpitation [R00.2] Sinus bradycardia [...] Encounter Status:Closed by JOYCELYN GRAVES on 07/26/20 [facility] 07-26-2020 Note HNO ID: [id number] Author: Shaq Luna MD Service: ? Author [...] fibrillation, sudden deaths. 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 . Daughter A AND W. 2 grandchildren. Lives in [place], [place]. Habits: Tobacco: none. Alcohol: never. Caffeine: [...] urination (more content not included)... [facility] 07-26-2020 Note HNO ID: [id number] Author: Shaq Luna MD Service: ? Author [...] with sinus bradycardia 54 bpm. [facility] 06-26-2020 Miscellaneous Notes Patient: Nitza Ibanez Date of : 1960 Patient phone number: [phone] Referring Provider for the encounter: Nehemiah Jimenez Requesting Provider: Someone that specializes in Valve Disease Reason for requesting visit (RFV/signs and symptoms/diagnosis): Bradycardia, tachycardia Person calling: self Return call to: self Medical Records/Insurance Card scanned into SecureAlert: Yes Comments: Valve Replacement X2 documented in this encounter [facility] Evaluation note Diagnosis Primary insomnia- Primary Persistent [...] section and content) DATE CREATED AUTHOR 07/08/2018 [facility] DATE CREATED AUTHOR AUTHOR'S ORGANIZ ATION 03/19/2021 [facility] DATE CREATED AUTHOR AUTHOR'S ORGANIZ ATION 04/02/2022 [facility] DATE CREATED AUTHOR AUTHOR'S ORGANIZ ATION 10/23/2023 [facility] dical [facility] DATE CREATED AUTHOR AUTHOR'S ORGANIZ ATION 02/15/2024 [facility] DATE CREATED AUTHOR AUTHOR'S ORGANIZ ATION 05/22/2024 [facility] Source Comments (unrecognize d section and content) In the event this informatio n is protected by the Federal Confidentiality of Alcohol and Drug Abuse Patient Records regulations: The Federal rules restrict any use of the information to criminally investigate or prosecute any alcohol or drug abuse patient.[facility] the event this information is protected by the Federal Confidentiality of Alcohol and Drug Abuse Patient Records regulations: The Federal rules restrict any use of the information to criminally investigate or prosecute any alcohol or drug abuse patient.[facility] the event this information is protected by the Federal Confidentiality of Alcohol and Drug Abuse Patient Records regulations: The Federal rules restrict any use of the information to criminally investigate or prosecute any alcohol or drug abuse patient.[facility] Reason for Visit (unrecogniz ed section and content) Reason Comments External Referrals/resources Reason Comments Refill Request Reason Comments Sleep Apnea Care Teams (unrecognized sec tion and content) Service Crew Leader Relationship Specialty Start Date End Date Nehemiah Jimenez MD [address] [place] [address] PCP - General Family Practice 06/06/13 Abner Young [address] [address] Referring Cardiology 07/26/20 Nimo Altman MD [address] [place] [address] Primary Staff Physician Cardiology 09/26/20 Service Crew Leader Relationship Specialty Start Date End Date Nehemiah Jimenez MD PCP - General Family Medicine 06/06/13 Abner Young [address] [address] Referring Cardiology 07/26/20 Nimo Altman MD [address] [place] [address] Primary Staff Physician Cardiology 09/26/20 Service Crew Leader Relationship Specialty Start Date End Date Nehemiah Jimenez MD [address] [place] [address] PCP - General Family Medicine 05/15/23 Service Crew Leader Relationship Specialty Start Date End Date Nehemiah Jimenez MD [address] [place] [address] PCP - General Family Medicine 05/15/23 FOR [...] BE BASED ON THE PRIMARY CLINICAL RECORDS. [facility]. provides no warranty or guarantee of the accuracy or completeness of information in this document.
[2024-05-26 17:06] LABS: Basophils Absolute Auto 0.1 10^3/uL (0.0-0.1); Basophils Percent Auto 0.9 % (0.2-2.0); Eosinophils Absolute Auto 0.8 10^3/uL (0.0-0.7); Eosinophils Percent Auto 10.5 % (0.9-7.0); Hematocrit 45.4 % (42.0-54.0); Hemoglobin 15.2 g/dL (14.0-18.0); Immature Granulocytes Abs Auto 0.02 10^3/uL (0.00-0.03); Immature Granulocytes Pct Auto 0.3 % (0.0-0.5); Lymphocytes Absolute Auto 1.7 10^3/uL (1.2-3.8); Lymphocytes Percent Auto 22.3 % (20.5-60.0); Mean Corpuscular HGB Conc 33.5 g/dL (29.9-35.2); Mean Corpuscular Hemoglobin 29.2 pg (25.9-34.0); Mean Corpuscular Volume 87.3 fL (80.0-94.0); Mean Platelet Volume 9.2 fL (9.5-13.5); Monocytes Absolute Auto 0.8 10^3/uL (0.3-0.8); Monocytes Percent Auto 10.9 % (1.7-12.0); Neutrophils Absolute Auto 4.2 10^3/uL (1.4-6.5); Neutrophils Percent Auto 55.1 % (43.0-75.0); Platelet Count 240 10^3/uL (150-450); Red Cell Distribution Width 13.3 % (11.0-15.0); White Blood Count 7.6 10^3/uL (4.0-11.0)
[2024-05-26 17:46] LABS: Alanine Aminotransferase 34 U/L (16-63); Alkaline Phosphatase 86 U/L (46-116); Anion Gap 8.9; Aspartate Amino Transferase 36 U/L (15-37); BUN Creatinine Ratio 17.3; Bilirubin Total 0.5 mg/dL (0.2-1.0); Calcium 9.4 mg/dL (8.5-10.1); Carbon Dioxide 28.9 mmol/L (21.0-32.0); Chloride 101 mmol/L (98-107); Estimated GFR (African America >60 (>=60 mL/min/1.73m^2); Estimated GFR (Non-African Ame >60 (>=60 mL/min/1.73m^2); Globulin 4.1 g/dL; Glucose 110 mg/dL (74-106); Potassium 3.8 mmol/L (3.5-5.1); Sodium 135 mmol/L (136-145); TSH W/ REFLEX FT4 4.617 uIU/mL (0.358-3.740); Total Protein 8.1 g/dL (6.4-8.2)
[2024-05-26 18:23] LABS: Free T4 0.97 ng/dL (0.76-1.46)
== END 2024-05-26 16:49 | disposition home or self-care (01) ==
LOC: LAB 16:50
PROVIDERS: PCP Family Medicine; Visit Provider Nurse Practitioner Family
DX: I48.0 Paroxysmal atrial fibrillation (principal)
CPT/HCPCS: 36415; 80053; 83735; 84439; 84443; 85025

== ENCOUNTER 2024-06-16 04:51 | Outpatient (RCR) | payer BC, SELFPAY | END 2024-07-15 14:53 | disposition home or self-care (01) | LOC: MM 04:51 | PROVIDERS: PCP Family Medicine; Visit Provider Internal Medicine | DX: Z51.81 Encounter for therapeutic drug level monitoring (principal); Z79.01 Long term (current) use of anticoagulants; I48.91 Unspecified atrial fibrillation ==

== ENCOUNTER 2024-07-17 07:06 | Outpatient (RCR) | payer BC, SELFPAY | END 2024-08-11 14:15 | disposition home or self-care (01) | LOC: MM 07:06 | PROVIDERS: PCP Family Medicine; Visit Provider Internal Medicine | DX: Z51.81 Encounter for therapeutic drug level monitoring (principal); Z79.01 Long term (current) use of anticoagulants; I48.91 Unspecified atrial fibrillation ==

== ENCOUNTER 2024-11-26 08:54 | Outpatient (OUT) | payer BC, SELFPAY ==
--- OUTSIDE RECORDS SUMMARY | 2024-11-26 09:01 | XMS_ITS | CCD ---
Author Organization [facility] Care Team Providers Care Residential Aide Name Role Phone Nehemiah Jimenez Primary Care Provider Nehemiah Jimenez Unavailable Nehemiah Jimenez MD Primary Care Provider [phone] Abner Young Unavailable Dianne WOOD, Nimo H Unavailable DR NEHEMIAH JIMENEZ Attending Unavailable DR NEHEMIAH JIMENEZ Admitting Unavailable ARTUR, DR CERNA Primary Care Unavailable DR NEHEMIAH JIMENEZ Consulting Unavailable DR NEHEMIAH JIMENEZ Attending Unavailable DR NEHEMIAH JIMENEZ Admitting Unavailable DR NEHEMIAH JIMENEZ Primary Care Unavailable Nehemiah Jimenez MD Primary Care Provider [phone] Abner Young Unavailable Dianne WOOD, Nimo H Unavailable MACARENA GARCIA Attending Unavailable Nehemiah Jimenez MD Primary Care Provider [phone] JUAN CROFT Referring Unavailable EMYMATT Referring Unavailable EMYMATT Referring Unavailable EMY, MATT Referring Unavailable EMYMATT Referring Unavailable JUAN CROFT Referring Unavailable MATT WILLIS Attending Unavailable NEENA MEADE Attending Unavailable EMYMATT Saleh Admitting Unavailable EMY, MATT Attending Unavailable EMYMATT Referring Unavailable RHONDA ALLEN Attending Unavailable MATT WILLIS Attending Unavailable EMYMATT Saleh Referring Unavailable EMY, AMTT Referring Unavailable EMY, MATT Attending Unavailable EMYMATT Saleh Referring Unavailable EMY, MATT Referring Unavailable EMYMATT Referring Unavailable EMYMATT Referring Unavailable Hoy, Nehemiah Referring Unavailable Kevin FRANCO Attending Unavailable Nehemiah Jimenez Referring Unavailable Kevin FRANCO Attending Unavailable Nehemiah Jimenez MD Primary Care Provider Macarena Garcia DO Attending Provider [phone] Allergies Allergy Classification Reported Allergen(s) Allergy Type Date of Onset Reaction(s) Facility (1 source) No Known Medication Allergies; Translations: [No Known Medication Allergies] Propensity to adverse reactions (disorder) [facility] Repository Medications Current Medications Medication Drug Class(es) Dates Sig (Normalized) Sig (Original) 24 hr dilTIAZem hydrochloride 300 mg extended release oral capsule (1 source) Calcium Channel Nakul Start: 05-28-2018 take 1 capsule by mouth once daily, then take 1 capsule by mouth every twenty-four hours Diltiazem Hcl (Cardizem Cd) 300 mg Capsule,Extended Release 24hr Active 300 MG PO Daily May 28, 2018 12:00am Complies with drug therapy pantoprazole 40 mg delayed release oral tablet (1 source) Proton Pump Inhibitor Start: 05-28-2018 take 1 tablet by mouth once daily Pantoprazole (Protonix) 40 mg Tablet,Delayed Release (Dr/Ec) Active 40 MG PO Daily May 28, 2018 12:00am Complies with drug therapy perflutren lipid microspheres 1.3 mL in NaCl (PF) 0.9% 10 mL injection (DEFINITY) (1 source) Start: 07-26-2020 End: 10-25-2021 perflutren lipid microspheres 1.3 mL in NaCl (PF) 0.9% 10 mL injection (DEFINITY) 125 ml sodium chloride 9 mg/ml prefilled syringe (1 source) Start: 07-26-2020 End: 10-25-2021 sodium chloride 0.9 % (flush) 10 mL (BD POSIFLUSH) verapamil hydrochloride 180 mg extended release oral tablet (3 sources) Calcium Channel Nakul Start: 11-08-2024 take 1 tablet by mouth once daily Verapamil 180 mg tablet extended release Active 180 MG PO daily November 08, 2024 12:00am Complies with drug therapy Start: 03-02-2020 take 1 tablet by lilia th twice daily verapamil SR (CALAN SR, ISOPTIN SR) 180 mg CR tablet Take 180 mg by mouth twice daily. 0 03/02/2020 Active Comment on above: Take 180 mg by mouth twice daily. Completed/Discontinued Medications Medication Drug Class(es) Dates Sig [...] by mouth once daily. With vitamin D celecoxib 200 mg oral capsule (1 source) Nonsteroidal Anti-inflammatory Drug Start: 05-28-2018 End: 11-08-2024 take 1 capsule by mouth twice daily as needed for pain Celecoxib (Celebrex) 200 mg Capsule Discontinued 200 MG PO Twice daily as needed for Pain May 28, 2018 12:00am November 08, 2024 3:06pm lamoTRIgine 100 mg oral tablet (3 sources) Mood Stabilizer, Anti-epileptic Agent Start: 08-27-2020 take 1 tablet by mouth once daily lamoTRIgine (LAMICTAL) 100 mg tablet Take 100 mg by mouth once daily. 0 08/27/2020 Active Start: 05-28-2018 take 1 tablet by lilia th twice daily Lamotrigine 100 mg tablet Active 100 MG PO Twice daily May 28, 2018 12:00am Complies with drug therapy Comment on above: Take 100 mg by mouth once daily. levothyroxine sodium 0.025 mg oral tablet (3 sources) l-Thyroxine Start: take 1 tablet by mouth once daily levothyroxine (SYNTHROID) 25 mcg tablet Take 25 mcg by mouth once daily. 0 07/25/2020 Active Start: 05-28-2018 take 1 tablet by lilia th once daily Levothyroxine 50 mcg tablet Active 50 MCG PO Daily May 28, 2018 12:00am Complies with drug therapy Comment on above: Take 25 mcg by [...] succinate 100 mg extended release oral tablet (3 sources) beta-Adrenergic Nakul Start: 06-28-2020 take 100 mg by mouth twice daily metoprolol succinate ER (TOPROL XL) 100 mg Take 100 mg by mouth twice daily. 0 06/28/2020 Active Start: 05-28-2018 take 1 tablet by lilia th every twelve hours Metoprolol Succinate 50 mg tablet extended release 24 hr Active 50 MG PO Q12H May 28, 2018 12:00am Complies with drug therapy Comment on above: Take 100 mg by mouth twice daily. pravastatin sodium 40 mg oral tablet (3 sources) HMG-CoA Reductase Inhibitor Start: 9 take 1 tablet by mouth once daily pravastatin (PRAVACHOL) 40 mg tablet Take 40 mg by mouth once daily. 0 06/15/2020 Active Comment on above: Take 40 mg by mouth once daily. warfarin sodium 5 mg oral tablet (2 sources) Vitamin K Antagonist Start: 9 take 1 tablet by mouth once daily warfarin (COUMADIN) 5 mg tablet Take 5 mg by mouth daily as directed. As directed by [facility] coumad[facility]. 0 10/21/2018 Active Comment on above: Take 5 mg by mouth d aily as directed. As directed by [facility]mad[facility]. Problems Active Problems Problem Classification Problem Date Documented Da te Episodic/Chronic Aortic; peripheral; and visceral artery aneurysms (2 sources) Thoracic aortic aneurysm without rupture; Translations: [Thoracic aortic aneurysm, without rupture] Onset: 10-18-2015 09-26-2020 Chronic Cardiac dysrhythmias (8 sources) Atrial fibrillation; Translations: [Unspecified atrial fibrillation] Onset: 09-11-2016 09-26-2020 Chronic Cardiac dysrhythmias (2 sources) Palpitations; Translations: [Palpitations] Onset: 09-09-2024 Episodic Essential hypertension (2 sources) Essential hypertension; Translations: [Essential (primary) hypertension] Onset: 09-26-2020 09-26-2020 Chronic Heart valve disorders (4 sources) History of mitral valve replacement; Translations: [Presence of prosthetic heart valve] Onset: 09-26-2020 09-26-2020 Chronic Miscellaneous mental health disorders (2 sources) Primary insomnia; Translations: [Primary insomnia] 10-21-2023 Chronic Other screening for suspected conditions (not mental disorders or infectious disease) (2 sources) Encounter for screening for malignant neoplasm of prostate; Translations: [Patient encounter status] Onset: 12-18-2021 01-28-2023 Episodic Comment on above: Problem List clean-u p per request of Phys. EHR Cmte Residual codes; unclassified (2 sources) Obstructive sleep apnea syndrome; Translations: [Obstructive sleep apnea (adult) (pediatric)] 10-21-2023 Chronic Residual codes; unclassified (2 sources) Hypersomnia; Translations: [Hypersomnia, unspecified] 10-21-2023 Chronic Past or Other Problems Problem Classification Problem Date Documented Da te Episodic/Chronic Other lower respiratory disease (2 sources) Hypoxia; Translations: [Hypoxemia] 10-21-2023 Episodic Other lower respiratory disease (2 sources) Snoring; Translations: [Snoring] 10-21-2023 Episodic Residual codes; unclassified (2 sources) Inadequate sleep hygiene; Translations: [Inadequate sleep hygiene] 10-21-2023 Episodic Results Test Name Value Interpretation Reference Range Facility Orders Onlyon 11-03-2024 Orders Only [id number] Indio Ibanez as L 1960 M Date Provider Department Center 11/03/2024 [facility]Y [facility] Family History Problem Relation Age of Onset Cancer Mother Cancer Father Diabetes Sister Cancer Brother Diabetes Brother Family Status - Relation Status Age at Mother Father Sister Alive Brother [facility] 36on 09-12-2024 36 Last note says angeles [facility] Orders Onlyon 09-01-2024 Orders Only [id number] Indoi Ibanez as L 1960 M Date Provider Department Center 09/01/2024 BRIDGETTE [facility]ROY [facility] Family History Problem Relation Age of Onset Cancer Mother Cancer Father Diabetes Sister Cancer Brother Diabetes Brother Family Status - Relation Status Age at Mother Father Sister Alive Brother [facility] 36on 08-29-2024 36 Patient stopped in t o the office today. Patient states he would like to see you sooner than January patient requested an early appointment for November. Patient states a pacemaker was discussed at his last office visit with you, patient states he wants to have pacemaker placed before the end of the year since he has met his deductible. Could you please look at his loop recorder and see if he has had any more events and if he needs the November appointment. Patient states he feels fine no symptoms at this time. Please advise. [facility] Office Visiton 07-26-2024 Follow-up visit [id number] Indio Ibanez as L 1960 M Date Provider Department Center 07/26/2024 M[facility] Family History Problem Relation Age of Onset Cancer Mother Cancer Father Diabetes Sister Cancer Brother Diabetes Brother Family Status - Relation Status Age at Mother Father Sister Alive Brother Level of Service:18729 IN OFFICE/OUTPATIENT ESTABLISHED LOW MDM 20 MIN [facility] Orders Onlyon 07-16-2024 Orders Only [id number] MarcelleIndio as L 1960 M Date Provider Department Center 07/16/2024 MATT STANFORD [facility] Family History Problem Relation Age of Onset Cancer Mother Cancer Father Diabetes Sister Cancer Brother Diabetes Brother Family Status - Relation Status Age at Mother Father Sister Alive Brother [facility] 36on 06-22-2024 36 Regarding lab result s from 05/26/2024: AUGUSTINE Farrell MA Please let him know his labs overall looked unremarkable. His TSH was slightly higher than his last check. Please have him follow-up with his PCP about this. Please also ask if he has noticed any change in his HR/palpitations. Thanks! Faxed lab results to Dr. Jimenez's office. LM on patient's VM. [facility] 37on 05-26-2024 37 *We will start amiodarone to try to help control your heart rate better. *Start amiodarone 400mg (2 tablets of 200mg) twice daily for 10 days. Then take 200mg 1 tablet daily. *Hold verapamil while on amiodarone. *Let us know if you are having any issues with low heart rates or any dizziness/lightheadedn ess. [facility] Office Visiton 05-26-2024 Follow-up visit [id number] Indio Ibanez as L 1960 Date Provider Department Center 05/26/2024 166-NEENA MEADE SAMUEL Riggins Family History Problem Relation Age of Onset Cancer Mother Cancer Father Diabetes Sister Cancer Brother Diabetes Brother Family Status - Relation Status Age at Mother Father Sister Alive Brother Level of Service:04764 IN OFFICE/OUTPATIENT ESTABLISHED MOD MDM 30 MIN Reason for Visit and Comments: Atrial Fibrillation [80] [facility] 36on 04-05-2024 36 called with BP lo/77 HR 74 133/65 HR 81 151/79 HR 77 145/73 HR 83 133/78 HR 102 133/87 HR 99 123/65 HR 72 130/77 HR 77 124/67 HR 92 [facility] Follow-Upon 03-16-2024 Follow-Up [id number] Indio Ibanez as L 1960 Date Provider Department Center 03/16/2024 [id number], ADAM SAMUEL Riggins Family History Problem Relation Age of Onset Cancer Mother Cancer Father Diabetes Sister Cancer Brother Diabetes Brother Family Status - Relation Status Age at Mother Father Sister Brother Level of Service:78410 IN OFFICE/OUTPATIENT ESTABLISHED LOW MDM 20 MIN [facility] Telephoneon 02-25-2024 Telephone [id number] Indio Ibanez as L 1960 Date Provider Department Center 02/25/20241986-LETI RYAN C [facility] Family History Problem Relation Age of Onset Cancer Mother Cancer Father Diabetes Sister Cancer Brother Diabetes Brother Family Status - Relation Status Age at Mother Father Sister Brother Reason for Visit and Comments: 3 week post ablation f/u [Other] [facility] Telephoneon 02-18-2024 Telephone [id number] Indio Ibanez as L 1960 Date Provider Department Center 02/18/20241986-LETI RYAN HVC [facility] Family History Problem Relation Age of Onset Cancer Mother Cancer Father Diabetes Sister Cancer Brother Diabetes Brother Family Status - Relation Status Age at Mother Father Sister Brother Reason for Visit and Comments: post ablation f/u [Other] [facility] 36on 02-06-2024 36 No answer when dominguez d for discharge call back, message left, call back number provided if he has any questions or concerns. [facility] Telephoneon 02-06-2024 Telephone [id number] Indio Ibanez L 1960 M Date Provider Department Center 02/06/2024 1912-[facility] Family History Problem Relation Age of Onset Cancer Mother Cancer Father Diabetes Sister Cancer Brother Diabetes Brother Family Status - Relation Status Age at Mother Father Sister Brother Reason for Visit and Comments: Hospital Follow-up [832] [facility] 30on 02-05-2024 30 The patient is Moderately Stable - Low risk of patient condition declining or worsening The patient's goals for the shift include rest/comfort The clinical goals for the shift include VSS, safety Over the shift, the patient did not make progress toward the following goals. Barriers to progression include. Recommendations to address these barriers include. [facility] 30 The patient is Moderately Stable - Low risk of patient condition declining or worsening The patient's goals for the shift include rest/comfort The clinical goals for the shift include VSS,safety Over the shift, the patient did not make progress toward the following goals. Barriers to progression include. Recommendations to address these barriers include. [facility] BASIC METABOLIC PANELon 12-2 Anion gap [Moles/Vol] 12 mmol/L [facility] Comment on above: Performed By: #### L [id number] #### [facility] ([facility]) [address] [place] [address] Calcium [Mass/Vol] 8.5 mg/dL Low 8.6-10.3 [facility] Comment on above: Performed By: #### L [id number] #### [facility] ([facility]) [address] [place] [address] Chloride [Moles/Vol] 103 mmol/L Normal 98-107 [facility] Comment on above: Performed By: #### L [id number] #### [facility] ([facility]) [address] [place] [address] CO2 [Moles/Vol] 23 mmol/L Normal 21-31 [facility] Comment on above: Performed By: #### L [id number] #### [facility] ([facility]) [address] [place] [address] Creatinine [Mass/Vol] 0.86 mg/dL Normal 0.70-1.30 [facility] Comment on above: Performed By: #### L [id number] #### [facility] ([facility]) [address] [place] [address] GLOMERULAR FILTRATION RATE ML/MIN/1.73 SQ M.PREDICTED 96.7 mL/min/1.73m*2 Normal >60.0 [facility] Comment on above: Result Comment: [facility]???s estimated glomerular filtration rate (eGFR) [...] individuals. Performed By: #### L [id number] #### [facility] ([facility]) [address] [place] [address] Glucose [Mass/Vol] 141 mg/dL High 70-100 [facility] Comment on above: Performed By: #### L [id number] #### [facility] ([facility]) [address] [place] [address] Potassium [Moles/Vol] 4.0 mmol/L Normal 3.5-5.1 [facility] Comment on above: Performed By: #### L [id number] #### [facility] [address] [place] [address] Sodium [Moles/Vol] 134 mmol/L Low 136-145 [facility] Comment on above: Performed By: #### L [id number] #### [facility] [address] [place] [address] Urea nitrogen [Mass/Vol] 19 mg/dL Normal 7-25 [facility] Comment on above: Performed By: #### L [id number] #### [facility] ([facility]) [address] [place] [address] UREA NITROGEN/CREATININE (MASS RATIO) IN SER/PLAS 22.1 [facility] Comment on above: Performed By: #### L [id number] #### [facility] ([facility]) [address] [place] [address] BLOOD CULTUREon 02-05-2024 Bacteria identified Cx Nom (Bld) No growth at 5 days [facility] Comment on above: Performed By: #### L [id number] #### [facility] ([facility]) [address] [place] [address] Order Comment: From a different site than #1. Performed By: #### L [id number] ####[facility] ([facility])[address] [place] [address] CBC WITH AUTO DIFFERENTIALon 02-05-2024 Basophils (Bld) [#/Vol] 0.01 10*3/uL Normal 0.00-0.20 [facility] Comment on above: Performed By: #### L [id number] #### [facility] [address] [place] [address] Basophils/100 WBC (Bld) 0.1 % Normal 0.0-1.0 [facility] Comment on above: Performed By: #### L [id number] #### [facility] [address] [place] [address] Eosinophils (Bld) [#/Vol] 0.00 10*3/uL Normal 0.00-0.50 [facility] Comment on above: Performed By: #### L [id number] #### [facility] ([facility]) [address] [place] [address] Eosinophils/100 WBC (Bld) 0.0 % Normal 0.0-6.0 [facility] Comment on above: Performed By: #### L [id number] #### [facility] ([facility]) [address] [place] [address] Erythrocyte distribution width (RBC) [Ratio] 13.3 % Normal 11.5-15.0 [facility] Comment on above: Performed By: #### L [id number] #### [facility] ([facility]) [address] [place] [address] ERYTHROCYTE MEAN CORPUSCULAR HEMOGLOBIN CONCENTRATION (G/DL) BY AUTOMATED 33.1 g/dL Normal 32.0-35.0 [facility] Comment on above: Performed By: #### L [id number] #### [facility] ([facility]) [address] [place] [address] Hematocrit (Bld) [Volume fraction] 38.1 % Low 39.0-55.0 [facility] Comment on above: Performed By: #### L [id number] #### [facility] [address] [place] [address] Hemoglobin (Bld) [Mass/Vol] 12.6 g/dL Low 13.0-17.0 [facility] Comment on above: Performed By: #### L [id number] #### [facility] ([facility]) [address] [place] [address] Immature granulocytes (Bld) [#/Vol] 0.08 10*3/uL Normal 0.00-0.20 [facility] Comment on above: Performed By: #### L [id number] #### [facility] ([facility]) [address] [place] [address] Immature granulocytes/100 WBC (Bld) 0.6 % Normal 0.0-1.0 [facility] Comment on above: Performed By: #### L [id number] #### [facility] ([facility]) [address] [place] [address] Lymphocytes (Bld) [#/Vol] 0.95 10*3/uL Low 1.20-4.00 [facility] Comment on above: Performed By: #### L [id number] #### [facility] ([facility]) [address] [place] [address] Lymphocytes/100 WBC (Bld) 6.6 % Low 20.0-45.0 [facility] Comment on above: Performed By: #### L [id number] #### [facility] ([facility]) [address] [place] [address] MCH (RBC) [Entitic mass] 28.6 pg Normal 27.0-33.0 [facility] Comment on above: Performed By: #### L [id number] #### [facility] ([facility]) [address] [place] [address] MCV (RBC) [Entitic vol] 86.6 fL Normal 82.0-98.0 [facility] Comment on above: Performed By: #### L [id number] #### [facility] ([facility]) [address] [place] [address] Monocytes (Bld) [#/Vol] 0.96 10*3/uL Normal 0.10-1.00 [facility] Comment on above: Performed By: #### L [id number] #### [facility] ([facility]) [address] [place] [address] Monocytes/100 WBC (Bld) 6.7 % Normal 5.0-12.0 [facility] Comment on above: Performed By: #### L [id number] #### [facility] [address] [place] [address] Neutrophils (Bld) [#/Vol] 12.36 10*3/uL High 1.60-7.60 [facility] Comment on above: Performed By: #### L [id number] #### [facility] ([facility]) [address] [place] [address] Neutrophils/100 WBC (Bld) 86.0 % High 40.0-72.0 [facility] Comment on above: Performed By: #### L [id number] #### [facility] [address] [place] [address] NRBC (PER 100 WBCS) BY AUTOMATED COUNT 0.0 % Normal 0 [facility] Comment on above: Performed By: #### L [id number] #### [facility] [address] [place] [address] PLATELETS (10*3/UL) IN BLOOD AUTOMATED COUNT 236 10*3/uL Normal 150-400 [facility] Comment on above: Performed By: #### L [id number] #### [facility] ([facility]) [address] [place] [address] RBC (Bld) [#/Vol] 4.40 10*6/uL Normal 4.20-5.70 [facility] Comment on above: Performed By: #### L [id number] #### [facility] ([facility]) [address] [place] [address] WBC (Bld) [#/Vol] 14.36 10*3/uL High 4.00-10.60 [facility] Comment on above: Performed By: #### L [id number] #### [facility] [address] [place] [address] DSon 02-05-2024 DS -- Attestation signed by [...] fibrillatio* Discharge Diagnosis PAF (paroxysmal atrial fibrillation) ([facility]) Discharge Disposition Home or Self Care () [...] Medications These medications were sent to [facility] - [place], [place] - [address] [place] [address] [place] [address], [facility] [address] famotidine 20 mg tablet omeprazole 40 mg [...] is performed under the ED CLIA certificate #[id number]. CBC WITH AUTO DIFFERENTIAL - Abnormal Auto [...] Absolute 0.9 (more content not included)... [facility] LACTIC ACID WITH 4 HOUR REFL EXon 02-05-2024 LACTATE (MMOL/L) IN SER/PLAS 2.4 mmol/L High 0.5-2.2 [facility] Comment on above: Performed By: #### L [id number] ####[facility] ([facility])[address] [place] [address] Orders Onlyon 02-05-2024 Orders Only [id number] Indio Ibanez as L 1960 M Date Provider Department Center 02/05/20241986-LETI RYAN [facility] Family History Problem Relation Age of Onset Cancer Mother Cancer Father Diabetes Sister Cancer Brother Diabetes Brother Family Status - Relation Status Age at Mother Father Sister Brother [facility] PROTIME-INRon 02-05-2024 INR IN PPP BY COAGULATION ASSAY 2.87 High 0.90-1.10 [facility] Comment on above: Result Comment: [...] 1995;108:[id number]. Performed By: #### L [id number] #### [facility] ([facility]) [address] [place] [address] PROTHROMBIN TIME (PT) IN PPP BY COAGULATION ASSAY 29.3 Seconds High 12.3-14.8 [facility] Comment on above: Performed By: #### L [id number] #### [facility] ([facility]) [address] [place] [address] 30on 02-04-2024 30 The patient is Moderately [...] and behaviors that affect risk of falls [place] fall precautions as indicated by assessment Educate [...] conditions and prevent exacerbation or deterioration [facility] CBC WITH AUTO DIFFERENTIALon 02-04-2024 Basophils (Bld) [#/Vol] 0.02 10*3/uL Normal 0.00-0.20 [facility] Comment on above: Performed By: #### L [id number] #### [facility] [address] [place] [address] Basophils/100 WBC (Bld) 0.2 % Normal 0.0-1.0 [facility] [facility] Comment on above: Performed By: #### L [id number] #### [facility] ([facility]) [address] [place] [address] Eosinophils (Bld) [#/Vol] 0.01 10*3/uL Normal 0.00-0.50 [facility] Comment on above: Performed By: #### L [id number] #### [facility] ([facility]AKER) [address] [place] [address] Eosinophils/100 WBC (Bld) 0.1 % Normal 0.0-6.0 [facility] Comment on above: Performed By: #### L [id number] #### [facility] ([facility]AKER) [address] [place] [address] Erythrocyte distribution width (RBC) [Ratio] 13.0 % Normal 11.5-15.0 [facility] Comment on above: Performed By: #### L [id number] #### [facility] ([facility]ER) [address] [place] [address] ERYTHROCYTE MEAN CORPUSCULAR HEMOGLOBIN CONCENTRATION (G/DL) BY AUTOMATED 33.4 g/dL Normal 32.0-35.0 [facility] Comment on above: Performed By: #### L [id number] #### [facility] [address] [place] [address] Hematocrit (Bld) [Volume fraction] 40.4 % Normal 39.0-55.0 [facility] Comment on above: Performed By: #### L [id number] #### [facility] ([facility]) [address] [place] [address] Hemoglobin (Bld) [Mass/Vol] 13.5 g/dL Normal 13.0-17.0 [facility] Comment on above: Performed By: #### L [id number] #### [facility] ([facility]) [address] [place] [address] Immature granulocytes (Bld) [#/Vol] 0.06 10*3/uL Normal 0.00-0.20 [facility] Comment on above: Performed By: #### L [id number] #### [facility] ([facility]) [address] [place] [address] Immature granulocytes/100 WBC (Bld) 0.6 % Normal 0.0-1.0 [facility] Comment on above: Performed By: #### L [id number] #### [facility] ([facility]) [address] [place] [address] Lymphocytes (Bld) [#/Vol] 0.65 10*3/uL Low 1.20-4.00 [facility] Comment on above: Performed By: #### L [id number] #### [facility] ([facility]) [address] [place] [address] Lymphocytes/100 WBC (Bld) 6.2 % Low 20.0-45.0 [facility] Comment on above: Performed By: #### L [id number] #### [facility] [address] [place] [address] MCH (RBC) [Entitic mass] 28.6 pg Normal 27.0-33.0 [facility] Comment on above: Performed By: #### L [id number] #### [facility] [address] [place] [address] MCV (RBC) [Entitic vol] 85.6 fL Normal 82.0-98.0 [facility] Comment on above: Performed By: #### L [id number] #### [facility] [address] [place] [address] Monocytes (Bld) [#/Vol] 0.10 10*3/uL Normal 0.10-1.00 [facility] Comment on above: Performed By: #### L [id number] #### [facility] ([facility]) [address] [place] [address] Monocytes/100 WBC (Bld) 0.9 % Low 5.0-12.0 [facility] Comment on above: Performed By: #### L [id number] #### [facility] ([facility]) [address] [place] [address] Neutrophils (Bld) [#/Vol] 9.69 10*3/uL High 1.60-7.60 [facility] Comment on above: Performed By: #### L [id number] #### [facility] ([facility]) [address] [place] [address] Neutrophils/100 WBC (Bld) 92.0 % High 40.0-72.0 [facility] Comment on above: Performed By: #### L [id number] #### [facility] ([facility]) [address] [place] [address] NRBC (PER 100 WBCS) BY AUTOMATED COUNT 0.0 % Normal 0 [facility] Comment on above: Performed By: #### L [id number] #### [facility] ([facility]) [address] [place] [address] PLATELETS (10*3/UL) IN BLOOD AUTOMATED COUNT 222 10*3/uL Normal 150-400 [facility] Comment on above: Performed By: #### L [id number] #### [facility] ([facility]) [address] [place] [address] RBC (Bld) [#/Vol] 4.72 10*6/uL Normal 4.20-5.70 [facility] Comment on above: Performed By: #### L [id number] #### [facility] ([place]) [address] [place] [address] WBC (Bld) [#/Vol] 10.53 10*3/uL Normal 4.00-10.60 [facility] Comment on above: Performed By: #### L [id number] #### [facility] ([place]) [address] [place] [address] HPon 02-04-2024 [facility] Electrophysiology Consult Note Reason for [...] At one point was being seeing by [facility] EP for PPM but no PPM [...] 125, triglycerides 162, hemoglobin A1c 5.4 Per [facility] cardiology 09/2020 HISTORY OF PRESENT ILLNESS: [...] Resource Strain: Low Risk (09/26/2019) Received from [facility] Overall Financial Resource Strain (CARDIA) Difficulty of Paying Living Expenses: Not hard at all Food Insecurity: Not on file Transportation Needs: No Transportation Needs (09/26/2019) Received from [facility] - Transportation Lack of Transportation (Medical): No Lack of Transportation (Non-Medical): No Physical Activity: Sufficiently Active (09/26/2019) Received from [facility], [facility] Exercise Vital Sign Days of Exercise per Week: 2 days Minutes of Exercise per Session: 150+ min Stress: No Stress Concern Present (09/26/2019) Received from [facility] [place] [facility] - Occupational Stress Questionnaire Feeling of Stress : Only a little Social Connections: Moderately Integrated (09/26/2019) Received from [facility] Social Connection and Isolation Panel [NHANES] Frequency of (more content not included)... [facility] POCT ACTIVATED CLOTTING TIME UNSOLICITED RESULTSon 02-04-2024 POC ACTIVATED CLOTTING TIME 119 sec Normal 82-152 [facility] Comment on above: Performed By: #### L [id number] ####[facility] (BEAKER)[address] [place] [address] POCT GLUCOSE METER UNSOLICIT ED RESULTSon 02-04-2024 Glucose [Mass/Vol] 111 mg/dL High 70-105 [facility] Comment on above: Order Comment: Waive d Testing in the ED is performed under the ED CLIA certificate #[id number]. Result Comment: ngro clarisa Performed By: #### L [id number] #### [facility] ([facility]ER) [address] [place] [address] PROTIME-INRon 02-04-2024 INR IN PPP BY COAGULATION ASSAY 2.20 High 0.90-1.10 [facility] Comment on above: Result Comment: [...] 1995;108:[id number]-246S. Performed By: #### L [id number] #### [facility] ([facility]) [address] [place] [address] PROTHROMBIN TIME (PT) IN PPP BY COAGULATION ASSAY 24.0 Seconds High 12.3-14.8 [facility] Comment on above: Performed By: #### L [id number] #### [facility] ([facility]) [address] [place] [address] Prep for Procedureon 024 Prep for Procedure [id number] Indio Ibanez as L 1960 M Date Provider Department Center 02/04/2024[facility] [place] Heart[facility]AS Family History Problem Relation Age of Onset Cancer Mother Cancer Father Diabetes Sister Cancer Brother Diabetes Brother Family Status - Relation Status Age at Mother Father Sister Brother [facility] Orders Onlyon 02-02-2024 Orders Only [id number] Indio Ibanez as L 1960 M Date Provider Department Center 02/02/2024 [facility] [place] Medical C Family History Problem Relation Age of Onset Cancer Mother Cancer Father Diabetes Sister Cancer Brother Diabetes Brother Family Status - Relation Status Age at Mother Father Sister Brother Normal [facility] Office Visiton 01-26-2024 Follow-up visit [id number] MarcelleIndio hagan as L 1960 M Date Provider Department Center 01/26/2024 MATT [facility] Family History Problem Relation Age of Onset Cancer Mother Cancer Father Diabetes Sister Cancer Brother Diabetes Brother Family Status - Relation Status Age at Mother Father Sister Brother Level of Service:51233 IN OFFICE/OUTPATIENT ESTABLISHED MOD MDM 30 MIN Normal [facility] Prep for Procedureon Prep for Procedure [id number] Indio Ibanez as L 1960 M Date Provider Department Center 12/31/2023 1987-[facility] [place] [facility] Family History Problem Relation Age of Onset Cancer Mother Cancer Father Diabetes Sister Cancer Brother Diabetes Brother Family Status - Relation Status Age at Mother Father Sister Brother Normal [facility] Office Visiton 12-29-2023 Follow-up visit [id number] Indio Ibanez as L 1960 M Date Provider Department Center 12/29/2023 241-[facility] Family History Problem Relation Age of Onset Cancer Mother Cancer Father Diabetes Sister Cancer Brother Diabetes Brother Family Status - Relation Status Age at Mother Father Sister Brother Level of Service:44504 IN OFFICE/OUTPATIENT ESTABLISHED HIGH MDM 40 MIN Normal [facility] CBC AUTO DIFFon 12-14-2021 BASO # 0.0 103/ul Normal 0.0-0.1 [facility] Comment on above: Performed By: #### C BC #### [facility] [address] [place] [address] Dr. Pérez Mg Basophils/100 WBC (Bld) 0.6 % Normal 0.2-2.0 [facility] Comment on above: Performed By: #### C BC #### [facility] [address] [place] [address] [address] Pérez Mg EO # 0.5 103/ul Normal 0.0-0.7 [facility] Comment on above: Performed By: #### C BC #### [facility] [address] [address] [address] Pérez Mg Eosinophils/100 WBC (Bld) 8.6 % Critically high 0.9-7.0 [facility] Comment on above: Performed By: #### C BC #### [facility] [address] [place] [address] Dr. Pérez Mg Erythrocyte distribution width (RBC) [Ratio] 13.2 % Normal 11.0-15.0 [facility] Comment on above: Performed By: #### C BC #### [facility] [address] [place] [address] Dr. Pérez Mg Hematocrit (Bld) [Volume fraction] 43.2 % Normal 42.0-54.0 [facility] Comment on above: Performed By: #### C BC #### [facility] [address] [place] [address] Dr. Pérez Mg Hemoglobin (Bld) [Mass/Vol] 14.6 g/dL Normal 14.0-18.0 [facility] Comment on above: Performed By: #### C BC #### [facility] [address] [place] [address] Dr. Pérez Mg IG # 0.06 10e3/ul Critically high 0.00-0.03 [facility] Comment on above: Performed By: #### C BC #### [facility] [address] [place] [address] Dr. Pérez Mg IG % 1.0 % Critically high 0.0-0.5 [facility] Comment on above: Performed By: #### C BC #### [facility] [address] [place] [address] Dr. Pérez Mg LYMPH # 1.1 103/ul Critically low 1.2-3.8 [facility] Comment on above: Performed By: #### C BC #### [facility] [address] [place] [address] Dr. Pérez Mg Lymphocytes/100 WBC (Bld) 17.5 % Critically low 20.5-60.0 [facility] Comment on above: Performed By: #### C BC #### [facility] [address] [place] [address] Dr. Pérez Mg MANUAL DIFF REQ NO Normal [facility] Comment on above: Performed By: #### C BC #### [facility] [address] [address] [address] Pérez Mg MCH (RBC) [Entitic mass] 29.0 pg Normal 25.9-34.0 [facility] Comment on above: Performed By: #### C BC #### [facility] [address] [address] [address] Pérez Mg MCHC (RBC) [Mass/Vol] 33.8 g/dL Normal 29.9-35.2 [facility] Comment on above: Performed By: #### C BC #### [facility] [address] [place] [address] Dr. Pérez Mg MCV (RBC) [Entitic vol] 85.9 fL Normal 80.0-94.0 [facility] Comment on above: Performed By: #### C BC #### [facility] [address] [place] [address] Dr. Pérez Mg MONO # 0.5 103/ul Normal 0.3-0.8 [facility] Comment on above: Performed By: #### C BC #### [facility] [address] [place] [address] Dr. Pérez Mg Monocytes/100 WBC (Bld) 8.3 % Normal 1.7-12.0 [facility] Comment on above: Performed By: #### C BC #### [facility] [address] [place] [address] Dr. Pérez Mg NEUT # 4.0 103/ul Normal 1.4-6.5 [facility] Comment on above: Performed By: #### C BC #### [facility] [address] [place] [address] Dr. Pérez Mg Neutrophils/100 WBC (Bld) 64.0 % Normal 43.0-75.0 [facility] Comment on above: Performed By: #### C BC #### [facility] [address] [place] [address] Dr. Pérez Mg Platelet mean volume (Bld) [Entitic vol] 9.1 fL Critically low 9.5-13.5 [facility] Comment on above: Performed By: #### C BC #### [facility] [address] [address] [address] Pérez Mg PLT 213 103/ul Normal 150-450 [facility] Comment on above: Performed By: #### C BC #### [facility] [address] [address] [address] Pérez Mg RBC 5.03 106/ul Normal 4.70-6.10 [facility] Comment on above: Performed By: #### C BC #### [facility] [address] [address] [address] Pérez Mg WBC 6.3 103/ul Normal 4.0-11.0 [facility] Comment on above: Performed By: #### C BC #### [facility] [address] [place] [address] Dr. Pérez Mg GLYCOHEMOGLOBIN A1Con 2021 ADA RECOMMENDATION SEE BELOW Normal [facility] Comment on above: Result Comment: ADA RECOMMENDED LIMIT 4.0 - 6.0 ADA THERAPEUTIC TARGET < 7.0 ACTION SUGGESTED > 7.0 Performed By: #### A 1C #### [facility] [address] [place] [address] Dr. Pérez Mg Glucose [Mass/Vol] 105 mg/dL Normal [facility] Comment on above: Performed By: #### A 1C #### [facility] [address] [place] [address] Dr. Pérez Mg HbA1c (Bld) [Mass fraction] 5.3 % Normal 4.5-6.2 [facility] Comment on above: Performed By: #### A 1C #### [facility] [address] [place] [address] Dr. Pérez Mg LIPID PROFILEon 12-14-2021 CHOL-HDL RATIO NORM SEE BELOW Normal [facility] Comment on above: Result Comment: 3.3 - 4.4 LOW RISK 4.4 - 7.1 AVERAGE RISK 7.1 - 11.0 MODERATE RISK >11.0 HIGH RISK Performed By: #### L IPID, CMP #### [facility] [address] [address] [address] Pérez Mg Cholesterol [Mass/Vol] 201 mg/dL Critically high <=200 [facility] Comment on above: Performed By: #### L IPID, CMP #### [facility] [address] [id number] [address] Pérez Mg Cholesterol in HDL [Mass/Vol] 41 mg/dL Normal 40-60 [facility] Comment on above: Performed By: #### L IPID, CMP #### [facility] [address] [address] [address] Pérez Mg Cholesterol in LDL [Mass/Vol] 122.8 mg/dL Normal [facility] Comment on above: Performed By: #### L IPID, CMP #### [facility] [address] [address] [address] Pérez Mg Cholesterol.total/Ch olesterol in HDL [Mass ratio] 4.9 {ratio} Normal [facility] Comment on above: Performed By: #### L IPID, CMP #### [facility] [address] [address] [address] Pérez Mg HDL NORMAL > or = 60 mg/dl - LO W CARDIOVASCULAR RISK <40 mg/dl - HIGH CARDIOVASCULAR RISK Normal [facility] Comment on above: Performed By: #### L IPID, CMP #### [facility] [address] [address] [address] Pérez Mg LDL CALC NORMAL SEE BELOW Normal [facility] Comment on above: Result Comment: <100 mg/dl OPTIMAL 100 - 129 mg/dl NEAR OR ABOVE OPTIMAL 130 - 159 mg/dl BORDERLINE HIGH 160 - 189 mg/dl HIGH >190 mg/dl VERY HIGH Performed By: #### L IPID, CMP #### [facility] [address] [address] [address] Pérez Mg Triglyceride [Mass/Vol] 186 mg/dL Critically high <=150 [facility] Comment on above: Performed By: #### L IPID, CMP #### [facility] [address] [address] [address] Pérez Mg VLDL CALC 37.2 mg/dL Normal [facility] Comment on above: Performed By: #### L IPID, CMP #### [facility] [address] [place] [address] Dr. Pérez Mg PROF 14(COMP METB)on 022 Albumin [Mass/Vol] 3.9 g/dL Normal 3.4-5.0 [facility] Comment on above: Performed By: #### L IPID, CMP #### [facility] [address] [place] [address] Dr. Pérez Mg Albumin/Globulin [Mass ratio] 1.1 {ratio} Normal [facility] Comment on above: Performed By: #### L IPID, CMP #### [facility] [address] [place] [address] Dr. Pérez Mg ALP [Catalytic activity/Vol] 65 U/L Normal 46-116 [facility] Comment on above: Performed By: #### L IPID, CMP #### [facility] [address] [place] [address] Dr. Pérez Mg ALT [Catalytic activity/Vol] 41 U/L Normal 16-63 [facility] Comment on above: Performed By: #### L IPID, CMP #### [facility] [address] [place] [address] Dr. Pérez Mg Anion gap [Moles/Vol] 10.3 mmol/L Normal [facility] Comment on above: Performed By: #### L IPID, CMP #### [facility] [address] [place] [address] Dr. Pérez Mg AST [Catalytic activity/Vol] 33 U/L Normal 15-37 [facility] Comment on above: Performed By: #### L IPID, CMP #### [facility] [address] [place] [address] Dr. Pérez Mg Bilirubin [Mass/Vol] 0.5 mg/dL Normal 0.2-1.0 [facility] Comment on above: Performed By: #### L IPID, CMP #### [facility] [address] [place] [address] Dr. Pérez Mg Calcium [Mass/Vol] 9.0 mg/dL Normal 8.5-10.1 [facility] Comment on above: Performed By: #### L IPID, CMP #### [facility] [address] [place] [address] Dr. Pérez Mg Chloride [Moles/Vol] 103 mmol/L Normal 98-107 [facility] Comment on above: Performed By: #### L IPID, CMP #### [facility] [address] [place] [address] Dr. Pérez Mg CO2 [Moles/Vol] 27.7 mmol/L Normal 21.0-32.0 [facility] Comment on above: Performed By: #### L IPID, CMP #### [facility] [address] [place] [address] Dr. Pérez Mg Creatinine [Mass/Vol] 0.73 mg/dL Normal 0.70-1.30 [facility] Comment on above: Performed By: #### L IPID, CMP #### [facility] [address] [place] [address] Dr. Pérez Mg EGFR-AF SWEDISH >60 Normal >=60 [facility] Comment on above: Performed By: #### L IPID, CMP #### [facility] [address] [place] [address] Dr. Pérez Mg EGFR-NON AF SWEDISH >60 Normal >=60 [facility] Comment on above: Performed By: #### L IPID, CMP #### [facility] [address] [place] [address] Dr. Pérez Mg Globulin (S) [Mass/Vol] 3.6 g/dL Normal [facility] Comment on above: Performed By: #### L IPID, CMP #### [facility] [address] [place] [address] Dr. Pérez Mg Glucose [Mass/Vol] 110 mg/dL Critically high 74-[address] [facility] Comment on above: Performed By: #### L IPID, CMP #### [facility] [address] [place] [address] Dr. Pérez Mg Potassium [Moles/Vol] 4.0 mmol/L Normal 3.5-5.1 [facility] Comment on above: Performed By: #### L IPID, CMP #### [facility] [address] [place] [address] Dr. Pérez Mg Protein [Mass/Vol] 7.5 g/dL Normal 6.4-8.2 [facility] Comment on above: Performed By: #### L IPID, CMP #### [facility] [address] [place] [address] Dr. Pérez Mg Sodium [Moles/Vol] 137 mmol/L Normal 136-145 [facility] Comment on above: Performed By: #### L IPID, CMP #### [facility] [address] [place] [address] Dr. Pérez Mg Urea nitrogen [Mass/Vol] 16.0 mg/dL Normal 7.0-18.0 [facility] Comment on above: Performed By: #### L IPID, CMP #### [facility] [address] [place] [address] Dr. Pérez Mg Urea nitrogen/Creatinine [Mass ratio] 21.9 mg/mg Normal [facility] Comment on above: Performed By: #### L IPID, CMP #### [facility] [address] [place] [address] Dr. Pérez Dee 01-28-2021 AUGUSTINEN Telephone (SAMUELMN) NITZA IBANEZ ([id number]) 1960 M Date Time Provider Department 01/28/21 SHAQ LUNA During your visit today, we recorded the following information about you: Ha Silveira 01/28/2021 2:35 PM Signed Outside medical records uploaded to [employer]: CT/OT - CTA chest with contrast - [...] mouth daily as directed. As directed by [facility] coumadin clinic. - levothyroxine (SYNTHROID) 25 mcg [...] valve replacement [Z95.2] 09/26/2020 Encounter Status:Closed by NAA FRAZIER on 01/28/21 [facility] CNOVon 09-26-2020 CNOV Office Visit (CARIMN ) NITZA IBANEZ ([id number]) 1960 M Date Time Provider Department 09/26/20 12:30 PM NIMO ALTMAN During your visit today, we recorded the following information about you: Pulse Respiration Blood pressure Weight 63/minute 12/minute 176/72 69.4 kg Height 1.778 m Nimo Altman MD 10/24/2020 11:55 AM [facility] [place] [facility] Tse Department of Cardiovascular Medicine SECTION OF CARDIOVASCULAR IMAGING OUTPATIENT VISIT DATE September 26, 2020 OUTPATIENT VISIT TYPE NEW PRIMARY CARE PHYSICIAN: Nehemiah Jimenez MD [address] [place] [address] REFERRING PHYSICIAN: Shaq Luna [address] [facility] [address] CHIEF COMPLAINT: Valvular heart disease HISTORY OF [...] mouth daily as directed. As directed by [facility] coumadin clinic. levothyroxine (SYNTHROID) 25 mcg tablet [...] Headache, Impai (more content not included)... Normal [facility] CNOVon 07-26-2020 CNOV Office Visit (CARDMN ) NITZA IBANEZ ([id number]) 1960 M Date Time Provider Department 07/26/20 [...] fibrillation, sudden deaths. 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 . Daughter A AND W. 2 grandchildren. Lives in [place], [place]. Habits: Tobacco: none. Alcohol: never. Caffeine: [...] paralysis-No, Numbness-No, (more content not included)... Normal [facility]IT[facility] ([id number]) 1960 M Date Time Provider Department 07/20/20 SHAQ LUNA During your visit today, we recorded the following information about you: Ha Duvall 07/20/2020 4:14 PM Signed Outside medical records scanned into [employer]. Patient scheduled to see Dr. Shaq Luna on July 26, 2020. Allergies As of Date: 07/20/2020 (Not on File) Date Reviewed: Never Reviewed Reason for Visit: Received Outside Medical Records [3576] Problem List As Of Date: 07/20/2020 (None) Encounter Status:Closed by HA VALLES on 07/20/20 [facility] CNCOon 07-05-2020 CNCO Letter Text [facility] CNPNon 06-26-2020 CNPN Telephone (REFPHY) NITZA IBANEZ ([id number]) 1960 M Date Time Provider Department 06/26/20 NO PCP (HISTORICAL) REFPHY During your visit today, we recorded the following information about you: Aj Saez 06/26/2020 12:18 PM Signed Patient: Nitza Kevin Marcelle Date of : 1960 Patient phone number: [phone] Referring Provider for the encounter: Nehemiah Jimenez Requesting Provider: Someone that specializes in Valve Disease Reason for requesting visit (RFV/signs and symptoms/diagnosis): Bradycardia, tachycardia Person calling: self Return call to: self Medical Records/Insurance Card scanned into [employer]: Yes Comments: Valve Replacement X2 Allergies As of Date: 06/26/2020 (Not on File) Date Reviewed: Never Reviewed Reason for Visit: External Referrals/resources [909] Problem List As Of Date: 06/26/2020 (None) Encounter Status:Closed by AJ SAEZ on 06/26/20 Normal [facility] Complete Blood Count Auto Di ffon 05-28-2018 Basophils #/vol (Bld) 0.0 10*3/uL Normal 0.0-0.2 [facility] Comment on above: Order Comment: Comme nt send tubes to 210 Result Comment: PERF ORMED BY: [place] [address] PATHOLOGIST VEHICLE SERVICE ATTENDANT LESLYE GONZALEZ M.D. Performed By: #### C BC #### [facility] [address] [place] [address] Basophils/100 WBC (Bld) 0.7 % Normal . [facility] Comment on above: Order Comment: Comme nt send tubes to 210 Performed By: #### C BC #### [facility] [address] [place] [address] Eosinophils #/vol (Bld) 0.3 10*3/uL Normal 0.0-0.45 [facility] Comment on above: Order Comment: Comme nt send tubes to 210 Performed By: #### C BC #### [address] Eosinophils/100 WBC (Bld) 6.0 % Normal . [facility] Comment on above: Order Comment: Comme nt send tubes to 210 Performed By: #### C BC #### [facility] [address] [place] [address] Erythrocyte distribution width Ratio (RBC) 14.1 % Normal 12.0-14.8 [facility] Comment on above: Order Comment: Comme nt send tubes to 210 Performed By: #### C BC #### [facility] [address] [place] [address] Hematocrit Volume Fraction (Bld) 44.5 % Normal 38.8-50.0 [facility] Comment on above: Order Comment: Comme nt send tubes to 210 Performed By: #### C BC #### [facility] [address] [place] [address] Hemoglobin mass conc (Bld) 15.1 g/dL Normal 13.0-17.0 [facility] Comment on above: Order Comment: Comme nt send tubes to 210 Performed By: #### C BC #### [facility] [address] [place] [address] Lymphocytes #/vol (Bld) 0.7 10*3/uL Low 1.00-4.8 [facility] Comment on above: Order Comment: Comme nt send tubes to 210 Performed By: #### C BC #### [facility] [address] [place] [address] Lymphocytes/100 WBC (Bld) 11.9 % Normal . [facility] Comment on above: Order Comment: Comme nt send tubes to 210 Performed By: #### C BC #### [facility] [address] [place] [address] MCH Entitic mass (RBC) 33.9 g/dL Normal 32.5-35.6 [facility] Comment on above: Order Comment: Comme nt send tubes to 210 Performed By: #### C BC #### [facility] [address] [place] [address] MCH Entitic mass (RBC) 28.8 pg Normal 27.5-35.2 [facility] Comment on above: Order Comment: Comme nt send tubes to 210 Performed By: #### C BC #### [facility] [address] [place] [address] MCV Entitic volume (RBC) 85.0 fL Normal 83.5-101 [facility] Comment on above: Order Comment: Comme nt send tubes to 210 Performed By: #### C BC #### [facility] [address] [place] [address] Monocytes #/vol (Bld) 0.7 10*3/uL Normal 0.0-0.8 [facility] Comment on above: Order Comment: Comme nt send tubes to 210 Performed By: #### C BC #### [facility] [address] [place] [address] Monocytes/100 WBC (Bld) 11.8 % Normal . [facility] Comment on above: Order Comment: Comme nt send tubes to 210 Performed By: #### C BC #### [facility] [address] [place] [address] Neutrophils #/vol (Bld) 3.9 10*3/uL Normal 1.8-7.7 [facility] Comment on above: Order Comment: Comme nt send tubes to 210 Performed By: #### C BC #### [facility] [address] [place] [address] Neutrophils/100 WBC (Bld) 69.6 % Normal . [facility] Comment on above: Order Comment: Comme nt send tubes to 210 Performed By: #### C BC #### [facility] [address] [place] [address] Nucleated RBC/100 WBC Ratio (Bld) 0.0 % Normal 0-0.5 [facility] Comment on above: Order Comment: Comme nt send tubes to 210 Performed By: #### C BC #### [facility] [address] [place] [address] Platelet mean volume Entitic volume (Bld) 7.4 fL Normal 6.6-10.1 [facility] Comment on above: Order Comment: Comme nt send tubes to 210 Performed By: #### C BC #### [facility] [address] [place] [address] Platelets #/vol (Bld) 237 10*3/uL Normal 150-450 [facility] Comment on above: Order Comment: Comme nt send tubes to 210 Performed By: #### C BC #### [facility] [address] [place] [address] RBC #/vol (Bld) 5.24 10*6/uL Normal 3.90-5.60 [facility] Comment on above: Order Comment: Comme nt send tubes to 210 Performed By: #### C BC #### [address] WBC #/vol (Bld) 5.6 10*3/uL Normal 4.1-10.5 [facility] Comment on above: Order Comment: Comme nt send tubes to 210 Performed By: #### C #### [place] [address] [id number] [facility] 05-28-2018 L -- ---- Specimen: Received: 05/28/18 Status: CAIO Scott Num: [id number] Spec Type: Surgical Subm Dr: Jim Jules Jr, Tissues: A Colon - Polyp (SIGMOID POLYP) Procedures: HE Stain/2, Gross/Micro L4 ---- Patient Age/Sex Location Account Attending Physician ---- Nitza Ibanez/M [id number] Jim Jules Jr, DO ---- SPEC NUM: RECD: 05/28/18 STATUS: CAIO SCOTT NUM: [id number] MARITO: 05/28/18 [facility] DR: Jim Jules Jr, DO ENTERED: 05/28/18 [...] microscopic findings support the above pathologic diagnosis. [id number] A. - - SIGMOID POLYP ---- ---- Specimen: Received: 05/28/18 Status: CAIO Scott Num: [id number] Spec Type: Surgical Subm Dr: Jim Jules Jr DO Tissues: A Colon - Polyp (SIGMOID POLYP) Procedures: HE Stain/2, Gross/Micro L4 ---- Patient: Nitza Ibanez [id number] (Continued) ---- Signed (signature on file) Leslye Gonzalez MD 05/31/18 1553 [facility] Partial Thromboplastin Timeo n 05-28-2018 aPTT Coag time (Bld) 40.4 s High 23.0-35.0 [facility] Comment on above: Order Comment: Comme nt send tubes to 210 Result Comment: PERF ORMED BY: [address] [place] [address] PATHOLOGIST VEHICLE SERVICE ATTENDANT LESLYE GONZALEZ M.D. Performed By: #### P T, PTT #### [facility] [address] [place] [address] Prothrombin Time INRon 05-28 INR Coag RelTime (PPP) 1.4 {INR} [facility] Comment on above: [...] Performed By: #### P T, PTT #### [facility] [address] [place] [address] Prothrombin time (PT) Coag time (PPP) 16.4 s High 9.0-12.9 [facility] Comment on above: Order Comment: Comme nt send tubes to 210 Performed By: #### P T, PTT #### [place] [id number] [facility] Vital Signs Date Time Vital Sign Value Performing Clinician Wisam rankin 11-08-2024 15:06-0400 Body height 177.8 cm Nehemiah Jimenez MD Work Phone: [facility] 11-08-2024 15:06-0400 Body mass index (BMI) [Ratio] 21.5 kg/m2 Nehemiah Jimenez MD Work Phone: [facility] 11-08-2024 15:06-0400 Body weight 68.03 kg Nehemiah Jimenez MD Work Phone: [facility] 11-08-2024 15:06-0400 Diastolic blood pressure 84 mm[Hg] Nehemiah Jimenez MD Work Phone: [facility] 11-08-2024 15:06-0400 Systolic blood pressure 136 mm[Hg] Nehemiah Jimenez MD Work Phone: [facility] Encounters Encounter Date Encounter Type Care Provider Facility Start: 12-01-2024 ambulatory Nehemiah Jimenez Facility:[facility] Start: 11-08-2024 End: 11-08-2024 ambulatory Nehemiah Jimenez MD Work Phone: [facility] Work Phone: Start: 11-08-2024 End: 11-08-2024 Patient encounter procedure Macarena Garcia DO -[facility] Work Phone: Start: 11-07-2024 ambulatory [facility] Start: 09-09-2024 ambulatory [facility] Start: 07-26-2024 End: 07-27-2024 ambulatory [facility] Start: 07-18-2024 ambulatory [facility] Start: 05-26-2024 [facility] Start: 05-19-2024 ambulatory [facility] Start: 04-14-2024 ambulatory [facility] Start: 03-16-2024 End: 03-16-2024 ambulatory [facility] Start: 03-01-2024 ambulatory Nehemiah Jimenez Facility:[facility] Start: 02-26-2024 ambulatory [facility] Start: 02-04-2024 Evaluation and manag ement of inpatient [facility] Start: 02-04-2024 ambulatory [facility] Start: 02-04-2024 End: 02-05-2024 Evaluation and management of inpatient [facility] Start: 01-26-2024 End: 01-26-2024 ambulatory [facility] Start: 01-08-2024 ambulatory [facility] Start: 12-29-2023 End: 12-29-2023 ambulatory [facility] Start: 12-28-2023 ambulatory [facility] Start: 12-21-2023 ambulatory [facility] Start: 11-18-2023 [facility] Start: 10-21-2023 End: 10-21-2023 Bamboo flowsheet Macarena Nickie DO Work Phone: [facility] Start: 10-21-2023 End: 10-21-2023 Bamboo flowsheet Macarena Nickie DO Work Phone: [facility] [address] Start: 10-21-2023 End: 10-21-2023 ambulatory MACARENA NICKIE Not Available Start: 10-21-2023 End: 10-21-2023 Office consultation new/estab patient 60 min Macarena Nickie DO Work Phone: [facility] Comment on above: Primary insomnia (Pr imary Dx); ANNETTE (obstructive sleep apnea); Hypoxia; Hypersomnia; Inadequate sleep hygiene; Snoring; Atrial fibrillation, unspecified type (CMS/HCC) Start: 11-05-2022 Refill Shaq Amezcua Work Phone: Cardiology Comment on above: Refill Request Start: 12-18-2021 Encounter for genera l adult medical examination without abnormal findings DR NEHEMIAH JIMENEZ [facility] Start: 12-14-2021 End: 12-15-2021 ambulatory [...] Comment on above: Performed By: #### P [facility] #### [facility] [address] [place] [address] Dr. Pérez Mg Plan of Treatment Date Care Activity Detail Author Start: 11-08-2024 End: 11-08-2024 Patient encounter procedure 11/08/2024 3:00 PM EDT Office Visit [facility] [address] [place] [id number] Macarena Garcia, DO [address] [place] [address] [facility] Start: 10-21-2023 End: 10-20-2024 Pulse oximetry, overnight Pulse oximetry, overnight Respiratory Care Routine Primary insomnia Expected: 10/21/2023 (Approximate), Expires: 10/20/2024 [facility] Work Phone: Comment on above: Expected: 10/21/2023 (Approximate), Expires: 10/20/2024 Start: 10-18-2023 Influenza vaccination Influenza Vacc ine (#1) [facility] Start: 10-17-2022 Influenza vaccination Influenza Vacc ine (#1) [facility] Start: 02-16-2022 Depression Assessment Depression Ass essment [facility] Start: 10-17-2021 Influenza vaccination INFLUENZA (#1) [facility] Start: 06-18-2020 COVID-19 VACCINE (2 - Booster for Rowdy series) COVID-19 VACCINE (2 - Booster for Rowdy series) [facility] Start: 2014 PROSTATE CANCER SCREENING DISCUSSION PROSTATE CANCER SCREENING DISCUSSION [facility] Start: 2009 SHINGRIX VACCINE (1 of 2) SHINGRIX VACCINE (1 of 2) [facility] Start: 2004 COLOGUARD (FIT-DNA) COLOGUARD (FIT-D NA) [facility] Start: 2004 Colonoscopy COLONOSCOPY [facility] Start: 2004 COLORECTAL CANCER SCREENING COLORECTAL CANCER SCREENING [facility] Start: [address] COLONOGRAPHY [facility] Start: 2004 DIABETES SCREEN DIABETES SCREEN [facility] Start: 2004 Diabetes Screening Diabetes Screenin g [facility] Start: 2004 FECAL OCCULT BLOOD FECAL OCCULT BLOO D [facility] Start: 2004 SIGMOIDOSCOPY SIGMOIDOSCOPY [facility] Start: 1994 Lipid 1996 panel - S brandon or Plasma Lipid Screening [facility] Start: 1994 LIPID SCREEN LIPID SCREEN [facility] Start: 1978 Urine microalbumin profile [facility] Start: 1977 ANNUAL PCP TEAM OPERATION AGENT ALAN DISEASE VISIT ANNUAL PCP TEAM CHRONIC DISEASE VISIT [facility] Start: 1977 BP CONTROLLED (<130/80) BP CONTROLLE D (<130/80) [facility] Start: 1977 HEPATITIS C SCREENING HEPATITIS C SC SKYLER [facility] Start: 1977 HIV SCREENING HIV SCREENING [facility] Start: 1971 Adult depression screening assessment DEPRESSION SCREENING [facility] Start: 1959 Screening for malign ant neoplasm of colon [facility] Immunizations Immunization Date Immunization Notes Care Provider Fa cility 12-28-2019 influenza virus vacc ine, unspecified formulation Shaq Luna MD Work Phone: [facility] Payers Date Payer Category Payer Unknown [id number] 2021 Unknown [id number] 2020 Unknown [id number] 2013 Unknown [facility] O [id number] 2013-Present HMO [id number] 1959 Unknown [id number] 1959 Unknown [id number] 1959 Unknown [id number] 1959 Unknown [id number] 1959 Unknown [id number] 1959 Self-pay 1959 Unknown [id number] Medicare Medicare [id number] Social History Date Type Detail Facility Tobacco smoking stat [facility] Unknown if ever smoked [facility] Start: 1960 Sex Assigned At Not on file [facility] Start: 07-26-2020 Tobacco smoking stat [facility] Never smoked tobacco [facility] Work Phone: Start: 07-26-2020 Tobacco use and exposure Smokeless tobacco non-user [facility] Work Phone: Start: 09-26-2020 Alcohol intake Lifetime non-d jose e (finding) [facility] Start: 07-26-2020 History SDOH Alcohol Frequency 1 [facility] Start: 07-26-2020 End: 09-26-2020 History of Social function [facility] Start: 07-26-2020 End: 09-26-2020 Tobacco use panel [facility] National Score (1-100), lower number is lower risk Not on file [facility] Tobacco smoking stat us NHIS Tobacco smoking consumption unknown [facility] Sex Male (finding) [facility] Start: 1960 Sex Assigned At Male F [facility] Clinical Notes 06-26-2020 to 07-26-2024 Macarena Garcia DO - 10/21/2023 1:30 PM EDTTelephone Encounter - Mary Fowler - 11/05/2022 9:55 AM EDTTelephone Encounter - Ha Silveira - 09/25/2021 7:16 AM EDT Note Date & Type Note Facility 07-26-2024 Note [facility] Consult Note Reason for visit: AF, MVRx2 (rheumatic disease hx?), hx AVR 07/26/2024 Patient here for 2 mo follow up PAF s/p loop recorder in place, and hx of valve replacement. He was started on amiodarone at last apt in May 2024 by Opal Meade CNP as EKG done at that time showed evidence of long RP tachycardia. Loop data reviewed by me does not show any episodes of A-fib since ablation. Review of Systems Cardiovascular: Positive for irregular heartbeat and palpitations. Neurological: Positive for headaches. All other systems reviewed and are negative. 01/26/24 Pt here for consent. Patient here [...] to SR. HPI: Nitza Ibanez is a 64 y.o. year old with past medical history of Peyronie's disease, aortic valve replacement x2, ?Marfan syndrome??, paresthesia, rheumatic heart disease s/p mitral valve replacement, LVH, A-fib, aortic aneurysm repair on warfarin due to history of A-fib and prosthetic valves. At one point was being seeing by [facility] EP for PPM but no PPM [...] 125, triglycerides 162, hemoglobin A1c 5.4 Per [facility] cardiology 09/2020 HISTORY OF PRESENT ILLNESS: [...] ECG Aneurysm of ascending aorta without rupture Aortic valve replaced Arrhythmia Atrial fibrillation (CMS/HCC) Cardiomegaly GERD (gastroesophageal reflux disease) H/O mitral valve replacement with mechanical valve Hyperlipidemia Hypertension Marfan's syndrome Peyronie's syndrome Pulmonary hypertension (CMS/HCC) Ventricular hypertrophy PSH: Past Surgical History: Procedure Laterality Date ABLATION OF DYSRHYTHMIC FOCUS AORTIC VALVE REPLACEMENT CARDIAC CATHETERIZATION CHOLECYSTECTOMY COLONOSCOPY W/ BIOPSIES AND POLYPECTOMY MITRAL VALVE REPLACEMENT SH: Social Determinants of Health Tobacco Use: Low Risk (05/26/2024) Patient History Smoking Tobacco Use: Never Smokeless Tobacco Use: Never Passive Exposure: Not on file Alcohol Use: Not on file Financial Resource Strain: Low Risk (02/04/2024) Overall Financial Resource Strain (CARDIA) Difficulty of Paying Living Expenses: Not hard at all Food Insecurity: No Food Insecurity (02/04/2024) Hunger Vital Sign Worried About Running Out of Food in the Last Year: Never true Ran Out of Food in the Last Year: Not on file Transportation Needs: No T (more content not included)... [facility] 05-26-2024 Note Cardiovascular Medic ine [facility] SUBJECTIVE Chief Complaint Patient presents with Atrial Fibrillation Nitza Ibanez is a 64 y.o. male here for follow-up. HPI PMHx: a.fib s/p ablation, aortic valve replacement with mechanical valve, history of mitral valve replacement with mechanical valve, aortic aneurysm repair, LVH 05/26/2024 He is 4 months s/p a.fib ablation. He c/o having palpitations yesterday. His HR typically averages in the 70s and since yesterday it has been in the 100s. He has had some intermittent episodes of feeling flushed. Feels like a near syncope at times. No recent issues with dizziness. No syncopal episodes. Denies c/o CP, dyspnea, orthopnea, PND, LE edema. Patient Active Problem List Diagnosis Atrial fibrillation (CMS/HCC) Chest pain Presence of prosthetic heart valve Primary hypertension Rheumatic mitral stenosis Thoracic aortic aneurysm without rupture Unstable angina (CMS/HCC) PAF (paroxysmal atrial fibrillation) (CMS/HCC) Screening for colorectal cancer ANNETTE (obstructive sleep apnea) Hypothyroidism Paroxysmal A-fib (CMS/HCC) Paroxysmal atrial fibrillation (CMS/HCC) Persistent atrial fibrillation (CMS/HCC) Past Medical History: Diagnosis Date Abnormal ECG Aneurysm of ascending aorta without rupture Aortic valve replaced Arrhythmia Atrial fibrillation (CMS/HCC) Cardiomegaly GERD (gastroesophageal reflux disease) H/O mitral valve replacement with mechanical valve Hyperlipidemia Hypertension Marfan's syndrome Peyronie's syndrome Pulmonary hypertension (CMS/HCC) Ventricular hypertrophy Family History Problem Relation Name Age of Onset Cancer Mother Cancer Father Diabetes Sister Cancer Brother Diabetes Brother Social History Tobacco Use Smoking status: Never Smokeless tobacco: Never Vaping Use Vaping status: Never Used Substance Use Topics Alcohol use: Not Currently Drug use: Never No Known Allergies Review of Systems Constitutional: Negative for chills, decreased appetite, fever, malaise/fatigue and weight gain. Cardiovascular: Positive for near-syncope and palpitations. Negative for chest pain, dyspnea on exertion, irregular heartbeat, leg swelling, orthopnea, paroxysmal nocturnal dyspnea and syncope. Hematologic/Lymphatic: Negative for bleeding problem. Does not bruise/bleed easily. OBJECTIVE Visit Vitals BP 134/87 (BP Location: Right arm, Patient Position: Sitting) Pulse 105 Ht 1.778 m (5' 10 ) Wt 71.7 kg (158 lb) SpO2 95% BMI 22.67 kg/m??? Smoking Status Never BSA 1.88 m??? Medications: Current Outpatient Medications: famotidine (Pepcid) 20 mg [...] by mouth at bedtime., Disp: , Rfl: warfarin (Coumadin) 5 mg tablet, Take 5-7.5 mg by mouth at bedtime., Disp: , Rfl: amiodarone (Pacerone) 200 mg tablet, Take 2 tablets (400 mg) by mouth two times daily for 10 days, THEN 1 tablet (200 mg) in the morning., Disp: 50 tablet, Rfl: 2 Physical Exam Constitutional: Appearance: Normal appearance. He is normal weight. HENT: Head: Normocephalic and atraumatic. Right Ear: External ear normal. Left Ear: External ear normal. Eyes: Extraocular Movements: Extraocular movements intact. Pupils: Pupils are equal, round, and reactive to light. Neck: Vascular: No carotid bruit. Cardiovascular: Rate and Rhythm: Regular rhythm. Tachycardia present. Pulses: Normal pulses. Heart sounds: Normal heart sounds. Comments: Mechanical click Pulmonary: Effort: Pulmonary effort is normal. Breath sounds: Normal breath sounds. Abdominal: General: Bowel sounds are normal. Palpations: Abdomen is soft. Musculoskeletal: General: Normal range of motion. Cervical back: Neck supple. Right lower leg: No edema. Left lower leg: No edema. Skin: General: Skin is warm and dry. Neurological: General: No focal deficit present. Mental Status: He is alert and oriented to person, place, and time. Psychiatric: Mood and Affect: Mood normal. Behavior: Behavior normal. Thought Content: Thought content normal. Judgment: Judgment normal. Labs: No results found for: EX (more content not included)... [facility] 05-26-2024 Note Patient here for 3 m [facility] [place] follow up appointment. Patient has loop recorder in place. Patient states yesterday his heart rate was in the 70. Patient states he felt an erratic beat and his heart rate went up into the 100. Patient states it has just stayed beating fast all day today. Denies leg swelling, and SOB. Review of Systems Cardiovascular: Positive for palpitations. [facility] 03-16-2024 Note Patient here for fol low up afib ablation performed on 02/04/[address] Willis. Has a little chest soreness s/p ablation. Denies SOB, lightheadedness/syncope, and bleeding on warfarin. Review of Systems Cardiovascular: Positive for chest pain ( soreness ) and palpitations ( once in awhile ). All other systems reviewed and are negative. [facility] 03-16-2024 Note SUBJECTIVE Nitza Ibanez is a [...] Admission on 02/03 (more content not included)... [facility] 02-04-2024 Note Treatment Plan: Patient was seen at bedside by me. He appeared to be in no acute distress, resting in bed. He is hemodynamically stable. Right groin access site appeared to be clean, no oozing, bleeding, or bruising noted. Mild tenderness to deep palpation. Will keep gauze and dressing on access site over night. Signed, Kathryn Fleming MD PGY-4 Vision Teacher [facility] Pager: [phone] [facility] 02-04-2024 Note 02/04/241814 Provider Notification [...] pressure, and new bleeding noted on dressing. staff climate scientistCARMEN reyes at bedside, held pressure for 10-15 minutes. While pressure was being applied, blood noted to be oozing from cath site. After 15 minutes, pressure dressing applied. Cardiology paged at this time for an update- awaiting call back. [facility] 02-04-2024 Note ATRIAL FIBRILLATION ABLATION [...] At one point was being seeing by [facility] EP for PPM but no PPM [...] Coumadin ridge. Esophagus was mapped using the [employer] 3D mapping software and noted to be [...] isolated. I ens (more content not included)... [facility] 02-04-2024 Note Patient: Nitza larios Procedure Summary Date: 02/04/24 [facility] / [facility] PRESSER 1 / [facility] (Cath) Anesthesia Start: 840 Anesthesia Stop: 121 Procedure: Ablation a-fib paroxysmal [...] no known notable events for this encounter. [facility] 02-04-2024 Note Airway Date/Time: 02/04/2024 8:59 AM Urgency: elective Airway not difficult General Information and Staff Patient location during procedure: OR Anesthesiologist: Nitza Huntley MD Resident/PROJECT PORTFOLIO ANALYST/CAA: Liliya Olmedo MD Performed: resident/PROJECT PORTFOLIO ANALYST/CAA Indications and Patient Condition Indications for airway [...] 1 Number of other approaches attempted: 0 [facility] 02-04-2024 Note Patient: Nitza larios Procedure Information Date/Time: 02/04/24 0800 Procedure: Ablation a-fib paroxysmal - PC APPROVE Location: [facility] PRESSER 1 EP / [facility] (Cath) Providers: Matt Willis [...] Value Ventricular Rate 67 Atrial Rate 67 IN Interval 134 QRS DURATION 118 QT Interval 422 QTC CALCULATION(BAZETT) 445 P Milford 59 R-Milford -27 T Wave Milford -5 Impression Normal sinus rhythm Left ventricular hypertrophy with QRS widening ( R in aVL , Sokolow-Payne , Casey product ) Abnormal ECG No previous ECGs [...] Plan discussed with attending. Additional Equipment Requests [facility] 01-26-2024 Note [place] Electrophysiology Consult Note Reason for [...] At one point was being seeing by [facility] EP for PPM but no PPM [...] 125, triglycerides 162, hemoglobin A1c 5.4 Per [facility] cardiology 09/2020 HISTORY OF PRESENT ILLNESS: [...] Resource Strain: Low Risk (09/26/2019) [facility] Overall Financial Resource Strain (CARDIA) Difficulty of Paying Living Expenses: Not hard at all Food Insecurity: Not on file Transportation Needs: No Transportation Needs (09/26/2019) Received from [facility] PRAPARE - Transportation Lack of Transportation (Medical): No Lack of Transportation (Non-Medical): No Physical Activity: Sufficiently Active (09/26/2019) Received from [facility] Exercise Vital Sign Days of Exercise per Week: 2 days Minutes of Exercise per Session: 150+ min Stress: No Stress Concern Present (09/26/2019) Received from [facility] [place] [facility] - Occupational Stress Questionnaire Feeling of Stress : Only (more content not included)... [facility] 12-29-2023 Note [place] Electrophysiology Consult [...] At one point was being seeing by [facility] EP for PPM but no PPM [...] 125, triglycerides 162, hemoglobin A1c 5.4 Per [facility] cardiology 09/2020 HISTORY OF PRESENT ILLNESS: [...] daily. metoprolol succinate (more content not included)... [facility] 10-21-2023 History of Present illness Narrative Images from the original note were not included. Chief Complaint Patient presents with Sleep Apnea Subjective Nitza Ochoale, 63 y.o., male being seen in Sleep [...] at work. 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 Past Medical History: Diagnosis Date Backache Disturbance [...] with auto PAP started. He has an [place] Sleepiness scale of 8. More aggressive with [...] was counseled on the risks of stroke, DE, and sudden with ANNETTE, along with the [...] clinic: 1 year documented in this encounter [facility] 11-05-2022 Miscellaneous Notes Call from patient requesting refill. Requested Prescriptions Pending Prescriptions Disp Refills losartan (COZAAR) 50 mg tablet [Pharmacy Med Name: LOSARTAN POTASSIUM 50 MG TAB] 180 tablet 3 Sig: take one tablet by mouth twice a day Patient last seen 09/26/20 Mary Fowler documented in this encounter [facility] 09-25-2021 Miscellaneous Notes Electronic request for refill. Requested Prescriptions Pending Prescriptions Disp Refills losartan (COZAAR) 50 mg tablet [Pharmacy Med Name: LOSARTAN POTASSIUM 50 MG TAB] 180 tablet 3 Sig: TAKE 1 TABLET BY MOUTH TWICE A DAY Last office visit in was 07/26/2020 Ha Silveira documented in this encounter [facility] 09-26-2020 Note HNO ID: [id number] Author: Nimo Altman MD Service: ? Author Type: Physician Type: Progress Notes Filed: 10/24/2020 11:55 AM Note Text: [facility] [place] [facility] Department of Cardiovascular Medicine SECTION OF CARDIOVASCULAR IMAGING OUTPATIENT VISIT DATE September 26, 2020 OUTPATIENT VISIT TYPE NEW PRIMARY CARE PHYSICIAN: Nehemiah Jimenez MD [address] [place] [address] REFERRING PHYSICIAN: Shaq Luna [address] [facility] [address] CHIEF COMPLAINT: Valvular heart disease HISTORY OF [...] daily as [facility]. [facility] levothyroxine (SYNTHROID) 25 mcg [...] GASTROINTESTINAL: Negative for: (more content not included)... [facility] 07-26-2020 Note HNO ID: [id number] Author: Joycelyn Weir Service: ? Author Type: ? Type: Progress Notes Filed: 07/26/2020 2:25 PM Note Text: EVENT MONITOR DISPOSABLE PATCH INSTRUCTIONS Patient Name: Nitza Ibanez [facility] Number: [id number] Skin prepped and cleansed with alcohol Patch secured to prepped area Monitor Activated Serial #: [id number] Patient Instructed: 1.) Prescribed order timeframe 2.) Bathing guidelines 3.) Usage of event button and diary documentation 4.) Return of monitor at the end of prescribed order 5.) Call with problems [phone] or [phone]. [phone] Patient expresses a good understanding of instructions Joycelyn Weir [facility] 07-26-2020 Note Education (CARDMN) MARCELLENITZA Brown ([id number]) 1960 M Date Time Provider Department 07/26/20 2:00 PM ARRHYTHMIA MONITORING LAB CARDMN Reason for Visit: ZIO PATCH [Other] Progress Notes: Joycelyn Weir 07/26/2020 2:25 PM Signed EVENT MONITOR DISPOSABLE PATCH INSTRUCTIONS Patient Name: Nitza Ibanez [facility] Number: [id number] Skin prepped and cleansed with alcohol Patch secured to prepped area Monitor Activated Serial #: [id number] Patient Instructed: 1.) Prescribed order timeframe 2.) Bathing guidelines 3.) Usage of event button and diary documentation 4.) Return of monitor at the end of prescribed order 5.) Call with problems [phone] or [phone]. [phone] Patient expresses a good understanding of instructions Joycelynse Christina Weir Primary Visit Diagnosis:AF (paroxysmal atrial [...] Encounter Status:Closed by JOYCELYN GRAVES on 07/26/20 [facility] 07-26-2020 Note HNO ID: [id number] Author: Shaq Luna MD Service: ? Author [...] fibrillation, sudden deaths. 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 . Daughter A AND W. 2 grandchildren. Lives in [place], [place]. Habits: Tobacco: none. Alcohol: never. Caffeine: [...] sweating-No, Frequent urination (more content not included)... [facility] 07-26-2020 Note HNO ID: [id number] Author: Shaq Luna MD Service: ? Author [...] aortic valve with sinus bradycardia 54 bpm. [facility] 06-26-2020 Miscellaneous Notes Patient: Nitza Ibanez Date of : 1960 Patient phone number: [phone] Referring Provider for the encounter: Nehemiah Jimenez Requesting Provider: Someone that specializes in Valve Disease Reason for requesting visit (RFV/signs and symptoms/diagnosis): Bradycardia, tachycardia Person calling: self Return call to: self Medical Records/Insurance Card scanned into [employer]: Yes Comments: Valve Replacement X2 documented in this encounter [facility] Evaluation note Diagnosis Primary insomnia- Primary Persistent disorder of initiating or maintaining sleep ANNETTE (obstructive sleep apnea) Obstructive sleep apnea (adult) (pediatric) Hypoxia Hypoxemia Hypersomnia Hypersomnia, unspecified Inadequate sleep hygiene Other specific disorder of sleep of nonorganic origin Snoring Other dyspnea and respiratory abnormality Atrial fibrillation, unspecified type (CMS/HCC) documented [facility] this [facility] noteNo assessment information availableBarber[facility] Work Phone: Reason for referral (narrative)No reason for referral information availableBarberton Citizens Hospital Work Phone: Summary Purpose Family History No Family History Records FoundNo Family History Records FoundNo Family History Records FoundNo Family History Records FoundNo Family History Records FoundNo Family History Records Found Advance Directives Advance Directive Response Recorded Date/ Time Advance Directives No May 28 019 6:20am Chief Complaint and Reason for Visit Chief Complaint Admit Date yearly follow up November 08, 2024 2:49pm Additional Source Comments (unrecognized sect ion and content) No Status Records FoundNo Status Records FoundNo Status Records FoundNo Status Records FoundNo Status Records FoundNo Status Records Found INFORMATION SOURCE (unrecogn ized section and content) DATE CREATED AUTHOR 07/08/2018 [facility] DATE CREATED AUTHOR AUTHOR'S ORGANIZ ATION 03/19/2021 [facility] DATE CREATED AUTHOR AUTHOR'S ORGANIZ ATION 04/02/2022 [facility] DATE CREATED AUTHOR AUTHOR'S ORGANIZ ATION 10/23/2023 [facility] DATE CREATED AUTHOR AUTHOR'S ORGANIZ ATION 11/09/2024 [facility] DATE CREATED AUTHOR AUTHOR'S ORGANIZ ATION 11/22/2024 [facility] Source Comments (unrecognize d section and content) In the event this informatio n is protected by the Federal Confidentiality of Alcohol and Drug Abuse Patient Records regulations: The Federal rules restrict any use of the information to criminally investigate or prosecute any alcohol or drug abuse patient.[facility] Hospital[facility] the event this information is protected by the Federal Confidentiality of Alcohol and Drug Abuse Patient Records regulations: The Federal rules restrict any use of the information to criminally investigate or prosecute any alcohol or drug abuse patient.[facility] HospitalIn the event this information is protected by the Federal Confidentiality of Alcohol and Drug Abuse Patient Records regulations: The Federal rules restrict any use of the information to criminally investigate or prosecute any alcohol or drug abuse patient.[facility] Reason for Visit (unrecogniz ed section and content) Reason Comments External Referrals/resources Reason Comments Refill Request Reason Comments Sleep Apnea Care Teams (unrecognized sec tion and content) Residential Aide Relationship Specialty Start Date End Date Nehemiah Jimenez MD [address] [place] [address] PCP - General Family Practice 06/06/13 Abner Young [address] [facility] [address] [place], [place] [id number] Referring Cardiology 07/26/20 Nimo Altman MD [address] [place] [address] Primary Staff Physician Cardiology 09/26/20 Residential Aide Relationship Specialty Start Date End Date Nheemiah Jimenez MD PCP - General Family Medicine 06/06/13 Abner Young [address] [place] [address] [place] [address] Referring Cardiology 07/26/20 Nimo Altman MD [address] [place] [address] Primary Staff Physician Cardiology 09/26/20 Residential Aide Relationship Specialty Start Date End Date Nehemiah Jimenez MD [address] [place] [id number] PCP - General Family Medicine 05/15/23 Residential Aide Relationship Specialty Start Date End Date Nehemiah Jimenez MD [address] [place] [address] PCP - General Family Medicine 05/15/23 Team Status: Active Member Role Status Dates Nehemiah Jimenez MD Primary Care Provider Active Team Status: Inactive Member Role Status Dates Nehemiah Jimenez MD Primary Care Provider Active Start: November 08, 2024 End: November 08, 2024 Macarena Garcia DO Attending Provider Active Sta rt: November 08, 2024 End: November 08, 2024 Goals (unrecognized section and content) Goals may be documented in a n alternate section FOR RECORDS PERTAINING TO PATIENTS WHO ARE [...] BE BASED ON THE PRIMARY CLINICAL RECORDS. [facility]. provides no warranty or guarantee of the accuracy or completeness of information in this document.
[2024-11-26 09:21] LABS: Hematocrit 45.0 % (42.0-54.0); Hemoglobin 14.9 g/dL (14.0-18.0); Immature Granulocytes Abs Auto 0.03 10^3/uL (0.00-0.03); Immature Granulocytes Pct Auto 0.5 % (0.0-0.5); Lymphocytes Absolute Auto 0.9 10^3/uL (1.2-3.8); Mean Corpuscular HGB Conc 33.1 g/dL (29.9-35.2); Mean Corpuscular Hemoglobin 28.7 pg (25.9-34.0); Mean Corpuscular Volume 86.5 fL (80.0-94.0); Platelet Count 257 10^3/uL (150-450); Red Blood Count 5.20 10^6/uL (4.70-6.10); White Blood Count 6.4 10^3/uL (4.0-11.0)
[2024-11-26 10:01] LABS: Alanine Aminotransferase 33 U/L (16-63); Albumin Globulin Ratio 0.9; Albumin Level 4.1 g/dL (3.4-5.0); Alkaline Phosphatase 80 U/L (46-116); Anion Gap 11.5; Aspartate Amino Transferase 35 U/L (15-37); Blood Urea Nitrogen 13.0 mg/dL (7.0-18.0); Calcium 9.2 mg/dL (8.5-10.1); Carbon Dioxide 29.6 mmol/L (21.0-32.0); Chloride 102 mmol/L (98-107); Cholesterol 180 mg/dL (<=200); Estimated GFR (African America >60 (>=60 mL/min/1.73m^2); Estimated GFR (Non-African Ame >60 (>=60 mL/min/1.73m^2); Free T3 3.17 pg/mL (2.18-3.98); Globulin 4.4 g/dL; Glucose 97 mg/dL (74-106); HDL Cholesterol 39 mg/dL (40-60); Potassium 4.1 mmol/L (3.5-5.1); Sodium 139 mmol/L (136-145); Thyroid Stimulating Hormone 0.137 uIU/mL (0.358-3.740); Total Protein 8.5 g/dL (6.4-8.2); Triglycerides 109 mg/dL (<=150); VLDL CHOLESTEROL 21.8 mg/dL
== END 2024-11-26 08:55 | disposition home or self-care (01) ==
PROVIDERS: PCP Family Medicine; Visit Provider Family Medicine
DX: I05.0 Rheumatic mitral stenosis (principal); K21.9 Gastro-esophageal reflux disease without esophagitis; I10 Essential (primary) hypertension; E03.9 Hypothyroidism, unspecified; E78.5 Hyperlipidemia, unspecified; R73.09 Other abnormal glucose; R53.83 Other fatigue; Z12.5 Encounter for screening for malignant neoplasm of prostate
CPT/HCPCS: 36415; 80053; 80061; 83036; 84436; 84443; 84481; 85025; G0103

== ENCOUNTER 2024-12-28 15:33 | Outpatient (OUT) | payer BC, SELFPAY ==
--- OUTSIDE RECORDS SUMMARY | 2024-12-28 15:38 | XMS_ITS | Encounter Summary ---
Author Organization [facility] Address [address] [address] Care Team Providers Care Hand Tire Trimmer Name Role Phone Eric Jimenez MD Primary Care Provider [phone] Reason for Referral * Imaging (Routine) - Pending ReviewSpecialtyDiagnoses / ProceduresReferred By ContactReferred To ContactCardiology Diagnoses Abnormal EKG Paroxysmal atrial fibrillation (CMS/HCC) Procedures Transthoracic echo (TTE) complete Matt Willis MD [address] [place] [address] Phone: tel: fax: Referral IDStatusReasonStart DateExpiration DateVisits RequestedVisits [id number] Review Perform Procedure Encounter Details DateTypeDepartmentCare Team (Latest Contact Info)Xxecbkelbnd75/28/2025Orders Only [facility] [address] [place] [address] Yeimi Hernandez MA Abnormal EKG (Primary Dx); Paroxysmal atrial fibrillation (CMS/HCC) Social History Tobacco UseTypesPacks/DayYears UsedDateSmoking Tobacco: NeverSmokeless Tobacco: NeverAlcohol UseStandard Drinks/WeekCommentsNot Currently0 (1 standard drink = 0.6 oz pure alcohol)[facility] UtilitiesAnswerDate RecordedIn the past 12 months has the electric, gas, oil, or water company threatened to shut off services in your home?No02/04/2024Humiliation, Afraid, Rape, and Kick questionnaireAnswerDate RecordedWithin the last year, have you been afraid of your partner or ex-partner?No02/04/2024Emotionally AbusedNot on file02/04/2024hysically Abused Not on file02/04/2024Sexually AbusedNot on file02/04/2024Overall Financial Resource Strain (CARDIA)AnswerDate RecordedHow hard is it for you to pay for the very basics like food, housing, medical care, and heating?Not hard at all 02/04/2024UT Safety & EnvironmentAnswerDate RecordedFear of Current or Ex-PartnerNot on file04/10/2023Emotionally AbusedNot on file04/10/2023hysically AbusedNot on file04/10/2023Sexually AbusedNot on file04/10/2023hysically or Sexually AbusedNot on file04/10/2023TransportationAnswerDate RecordedIn the past 12 months, has lack of transportation kept you from medical appointments or from getting medications?No02/04/2024Lack of Transportation (Non-Medical)Not on file 02/04/2024Housing Stability Vital SignAnswerDate RecordedIn the last 12 months, was there a time when you were not able to pay the mortgage or rent on time?No 02/04/2024Number of Times Moved in the Last YearNot on file02/04/2024t any time in the past 12 months, were you homeless or living in a penitentiary (including now)? No02/04/2024Hunger Vital SignAnswerDate RecordedWithin the past 12 months, you worried that your food would run out before you got the money to buymore.Never true02/04/2024an Out of Food in the Last YearNot on file02/04/2024Sex and Gender InformationValueDate RecordedSex Assigned at NgcygDblx20/28/2024 9:09 AM ESTLegal WzbDoom0611/07/2022 9:21 AM EDTGender FtzmzvaaZztk30/28/2024 9:09 AM EST Sexual OrientationHeterosexual or Vmanjahv61/28/2024 9:09 AM ESTdocumented as of this encounter Functional Status * BPAnswerDate of KtwzldswnwReihgd633/8312/13/2024 8:52 AM Nimo Chakraborty MA * PulseAnswerDate of AnpgflnpiaEvgyef23481/28/2025 8:52 AM Nimo Chakraborty MA * Patient PositionAnswerDate of FydfudibfsAwbvgyNbtgggl07/28/2025 8:52 AM EDT Nimo Sears MA * Are you deaf or do you have serious difficulty hearing?AnswerDate of PpzluzvyhkLqmsswDl66/20/2024 2:56 PM Afua Marquis RN * Are you blind or do you have serious difficulty seeing, even when wearing glasses?AnswerDate of JjbxfxufwxFnwameYz90/20/2024 2:56 PM Afua Marquis RN * Do you have serious difficulty walking or climbing stairs?AnswerDate of FrvuhcifrgExvywoNd85/20/2024 2:56 PM Afua Marquis RN * Do you have serious difficulty dressing or bathing?AnswerDate of Assessment NpkjitYf32/20/2024 2:56 PM Afua Marquis RN * Because of a physical, mental, or emotional condition, do you have serious difficulty doing errandsalone such as visiting the doctor?AnswerDate of LpmkmctapzUvuhvvLx72/20/2024 2:56 PM Afua Marquis RN * BPAnswerDate of TprcpcwptnDwnaft006/8312/13/2024 8:52 AM Nimo Chakraborty MA * PulseAnswerDate of HhemdfmaufJgxram05832/28/2025 8:52 AM Nimo Chakraborty MA * XyE1ZzqpsdNvys of WldyzjkpkkGpuspt0785/28/2025 8:52 AM Nimo Chakraborty MA * BP LocationAnswerDate of AssessmentThe [facility]12/13/2024 8:52 AM EDNimo Head MA * Patient PositionAnswerDate of CesghfuzxwNobprvHptzyru99/28/2025 8:52 Nimo Montesinos MA documented as of this encounter Mental Status * Because of a physical, mental, or emotional condition, do you have serious difficulty concentrating, remembering, or making decisions? (5 years old or older)AnswerEntry ZuvaWccgzdAe51/20/2024 2:56 PM Afua Marquis RN documented in this encounter Plan of Treatment NameTypePriorityAssociated DiagnosesOrder ScheduleTransthoracic echo (TTE) completeEchocardiographyRoutine Abnormal EKG Paroxysmal atrial fibrillation (CMS/HCC) Expected: 12/13/2024 (Approximate), Expires: 12/13/2026documented as of this encounter Visit Diagnoses Diagnosis Abnormal EKG- Primary Nonspecific abnormal electrocardiogram (ECG) (EKG) Paroxysmal atrial fibrillation (CMS/HCC) Atrial fibrillation documented in this encounter Care Teams Team MemberRelationshipSpecialtyStart DateEnd Eric Jimenez MD [address] [place] [address] PCP - General04/15/23documented as of this encounter
--- OUTSIDE RECORDS SUMMARY | 2024-12-28 15:38 | XMS_ITS | CCD ---
Author Organization [facility] Care Team Providers Care Nurse Head Name Role Phone Nehemiah Siddiqui Primary Care Provider [phone] Nehemiah Siddiqui Unavailable Nehemiah Siddiqui MD Primary Care Provider [phone] Abner Young Unavailable Dianne WOOD, Nimo H Unavailable DR NEHEMIAH SIDDIQUI Attending Unavailable DR NEHEMIAH SIDDIQUI Admitting Unavailable ARTUR, DR CERNA Primary Care Unavailable DR NEHEMIAH SIDDIQUI Consulting Unavailable DR NEHEMIAH SIDDIQUI Attending Unavailable ARTUR, DR CERNA Admitting Unavailable DR NEHEMIAH SIDDIQUI Primary Care Unavailable Nehemiah Siddiqui MD Primary Care Provider [phone] Abner Young Unavailable Dianne WOOD, Nimo H Unavailable MACARENA FU Attending Unavailable Nehemiah Siddiqui MD Primary Care Provider [phone] Nehemiah Siddiqui MD Primary Care Provider [phone] Macarena Fu DO Attending Provider [phone] Nehemiah Siddiqui Primary Care Physician Nehemiah Siddiqui Referring Unavailable Kevin FRANCO Attending Unavailable Nehemiah Siddiqui Referring Unavailable Kevin FRANCO Attending Unavailable MATT QUEVEDO Referring Unavailable EMYMATT Referring Unavailable EMY, MATT Referring Unavailable EMYMATT Referring Unavailable EMY, MATT Referring Unavailable EMY, MATT Referring Unavailable EMY, MATT Referring Unavailable NEENA MEADE Attending Unavailable RHONDA ALLEN Attending Unavailable MATT QUEVEDO Admitting Unavailable EMY, MATT Attending Unavailable MATT QUEVEDO Attending Unavailable EMY, MATT Attending Unavailable MATT QUEVEDO Attending Unavailable MATT QUEVEDO Attending Unavailable JUAN CROFT Referring Unavailable MATT QUEVEDO Referring Unavailable MATT QUEVEDO Referring Unavailable MATT QUEVEDO Referring Unavailable Allergies Allergy ClassificationReported Allergen(s)Allergy TypeDate of OnsetReaction(s) Facility (1 source)No Known Medication Allergies; Translations: [No Known Medication Allergies]Propensity to adverse reactions (disorder)[facility] Repository Medications Current Medications MedicationDrug Class(es)DatesSig (Normalized)Sig (Original)24 hr dilTIAZem hydrochloride 300 mg extended release oral capsule (1 source)Calcium Channel BlockerStart: 10-00-3813ekkp 1 capsule by mouth once daily, then take 1 capsule by mouth every twenty-four hoursDiltiazem Hcl (Cardizem Cd) 300 mg Capsule,Extended Release 24hr Active 300 MG PO Daily May 12:00am Complies with drug therapyferrous sulfate 325 mg oral tablet (1 source)Start: 02-58-4823ygby 1 tablet by mouth once dailyferrous sulfate 325 mg Tab 325 mg = 1 tab(s), Oral, Daily, Refills(s) 0 Start Date: 02/15/24 Status: Ordered Repeat number: 1irbesartan 150 mg oral tablet (1 source)Angiotensin 2 Receptor BlockerStart: 61-50-4013hgsg 1 tablet by mouth once dailyirbesartan 150 mg Tab 150 mg = 1 tab(s), Oral, Daily, Refills(s) 0 Start Date: 11/18/24 Status: Ordered Repeat number: 1levothyroxine sodium 0.075 mg oral tablet (4 sources)l-ThyroxineStart: 83-95-8218lzeb 1 tablet by mouth once daily levothyroxine 75 mcg (0.075 mg) Tab 75 mcg = 1 tab(s), Oral, Daily, Refills(s) 0 Start Date: 11/18/24 Status: Ordered Repeat number: 1Start: 34-40-7115ccdg 1 tablet by mouth once dailylevothyroxine (SYNTHROID) 25 mcg tablet Take 25 mcg by mouth once daily. 0 07/25/2020 ActiveStart: 26-64-1484vpnm 1 tablet by mouth once dailyLevothyroxine 50 mcg tablet Active 50 MCG PO Daily May 28, 2018 12:00am Complies with drug therapyComment on above:Take 25 mcg by mouth once daily.pantoprazole 40 mg delayed release oral tablet (1 source)Proton Pump InhibitorStart: 48-75-5072tbfi 1 tablet by mouth once dailyPantoprazole (Protonix) 40 mg Tablet,Delayed Release (Dr/Ec) Active 40 MG PO Daily May 28, 201812:00am Complies with drug therapyperflutren lipid microspheres 1.3 mL in NaCl (PF) 0.9% 10 mL injection (DEFINITY) (1 source)Start: 07-26-2020 End: 15-20-8035nvoohqsbrz lipid microspheres 1.3 mL in NaCl (PF) 0.9% 10 mL injection (DEFINITY)pravastatin sodium 40 mg oral tablet (4 sources)HMG-CoA Reductase InhibitorStart: 13-43-9659ltdp 1 tablet by mouth once dailyPravachol 40 mg Tab 40 mg = 1 tab(s), Oral, Daily, Refills(s) 0 Start Date: 10/19/19 Status: Ordered Repeat number: 1Comment on above:Take 40 mg by mouth once daily.125 ml sodium chloride 9 mg/ml prefilled syringe (1 source)Start: 07-26-2020 End: 59-43-5833wwfbjd chloride 0.9 % (flush) 10 mL (BD POSIFLUSH)verapamil hydrochloride 180 mg extended release oral tablet (4 sources)Calcium Channel BlockerStart: 62-77-4303mbff 1 tablet by mouth once dailyVerapamil 180 mg tablet extended release Active 180 MG PO daily November 08, 2024 12:00am Complies with drug therapyStart: 92-41-6521cxcz 1 tablet by mouth twice dailyverapamil SR (CALAN SR, ISOPTIN SR) 180 mg CR tablet Take 180 mg by mouth twice daily. 0 03/02/2020ctiveStart: 01-40-5586fmig 0.5 tablet by mouth every twelve hoursverapamil 180 mg ER Tab 0.5 tab, Oral, q12hr, Refills(s) 0 Start Date: 10/25/19 Status: Ordered Repeat number: 1Comment on above:Take 180 mg by mouth twice daily.warfarin sodium 5 mg oral tablet (3 sources)Vitamin K AntagonistStart: 81-45-1486hetc 7.5 mg by mouth once daily Coumadin 5 mg Tab 7.5 mg = 1.5 tab(s), Oral, Daily, Refills(s) 0 Start Date: 10/19/19 Status: OrderedRepeat number: 1Start: 94-00-3115ueoj 1 tablet by mouth once dailywarfarin (COUMADIN) 5 mg tablet Take 5 mg by mouth daily as directed. As directed by [facility] coumadin clinic. 0 10/21/2018 Active Comment on above:Take 5 mg by mouth daily as directed. As directed by [facility] coumadin [facility]. Completed/Discontinued Medications MedicationDrug Class(es)DatesSig (Normalized)Sig (Original)amoxicillin 500 mg oral capsule (2 sources)Penicillin-class AntibacterialStart: 81-10-9360ixjc 4 capsules by mouth every houramoxicillin (POLYMOX, AMOXIL) 500 mg capsule TAKE 4 CAPSULES BY MOUTH 1 HOUR PRIOR TO PROCEDURE 0 07/02/2020 ActiveComment on above:TAKE 4 CAPSULES BY MOUTH 1 HOUR PRIOR TO PROCEDURECalcium (2 sources)Phosphate Binder, Calciumtake 600 mg by mouth once dailyCALCIUM ORAL Take 600 mg by mouth once daily. With vitamin D 0 ActiveComment on above:Take 600 mg by mouth once daily. With vitamin Dcelecoxib 200 mg oral capsule (1 source)Nonsteroidal Anti-inflammatory DrugStart: 05-28-2018 End: 96-15-1591ayum 1 capsule by mouth twice daily as needed for painCelecoxib (Celebrex) 200 mg Capsule Discontinued 200 MG PO Twice daily as needed for Pain May 28, 2018 12:00am November 08, 2024 3:06pmlamoTRIgine 100 mg oral tablet (4 sources)Mood Stabilizer, Anti-epileptic AgentStart: 65-49-4313wuks 1 tablet by mouth once dailylamoTRIgine (LAMICTAL) 100 mg tablet Take 100 mg by mouth once daily. 0 08/27/2020 ActiveStart: 02-29-4922tcwj 1 tablet by mouth twice dailyLamotrigine 100 mg tablet Active 100 MG PO Twice daily May 28, 2018 12:00am Complies with drug therapyComment on above:Take 100 mg by mouth once daily.losartan potassium 50 mg oral tablet (4 sources)Angiotensin 2 Receptor BlockerStart: 07-26-2020 End: 74-72-0579lfrm 1 tablet by mouth every twelve hourslosartan (COZAAR) 50 mg tablet take one tablet by mouth twice a day 180 tablet 3 11/07/2022 Active Comment on above:TAKE 1 TABLET BY MOUTH TWICE A DAYTake 1 tablet by mouth twice daily.take one tablet by mouth twice a day24 hr metoprolol succinate 100 mg extended release oral tablet (3 sources)beta-Adrenergic BlockerStart: 02-63-2964uixp 100 mg by mouth twice dailymetoprolol succinate ER (TOPROL XL) 100 mg Take 100 mg by mouth twice daily. 0 06/28/2020 ActiveStart: 03-27-9837xumc 1 tablet by mouth every twelve hoursMetoprolol Succinate 50 mg tablet extended release 24 hr Active 50 MG PO Q12H May 28, 2018 12:00am Complies with drug therapyComment on above:Take 100 mg by mouth twice daily. Problems Active Problems Problem ClassificationProblemDateDocumented DateEpisodic/ChronicAbdominal pain (1 source)Epigastric befr69-08-7180KatyqfjwHhidsz; peripheral; and visceral artery aneurysms (3 sources)Thoracic aortic aneurysm without rupture; Translations: [Thoracic aortic aneurysm, without rupture]Onset: 694723-29-1858KsmidowAvxhqwz tract disease (1 source)Biliary ryrfzgwr76-77-6240WxgobencRecrqlf dysrhythmias (9 sources)Atrial fibrillation; Translations: [Unspecified atrial fibrillation] Onset: 755830-09-6371YvbmvubXminrdcvdy disorders (1 source)Gastroesophageal reflux -12-6685WxgjlurHiixplppg hypertension (3 sources)Essential hypertension; Translations: [Essential (primary) hypertension]Onset: 523802-22-0677TqzwjoxZhjti valve disorders (5 sources)History of mitral valve replacement; Translations: [Presence of prosthetic heart valve]Onset: 140140-34-3549ZrwfntjPumsltqsywvbe mental health disorders (2 sources)Primary insomnia; Translations: [Primary insomnia]54-60-9249Pjfgwmm Other aftercare (1 source)Long-term current use of duerztdcronqs75-67-5558KrtgklsfTayfh and ill- defined heart disease (1 source)Bilateral enlargement of dyvux10-44-3107JumfddcEfxks and ill-defined heart disease (1 source)Csaexsidsvlt69-76-4652SzermqlMvuch and ill-defined heart disease (1 source)Left ventricular ytwpncyoetq00-82-0748ZzzhtgzUomyu and unspecified benign neoplasm (2 sources)History of polyp of colon; Translations: [Personal history of adenomatous and serrated colon polyps]Onset: 48-77-9146XkkawteaJumqw congenital anomalies (1 source)Marfan's vwyoyifg37-32-0159LqivoaxGeqxv lower respiratory disease (1 source)Nodule of gels61-47-6819NgjhbwrtJjthp male genital disorders (1 source)Induratio penis fvzodbxl72-32-6329RqcnrndLlzio screening for suspected conditions (not mental disorders or infectious disease) (2 sources)Encounter for screening for malignant neoplasm of prostate; Translations: [Patient encounter status]Onset: 428018-62-1494Xqdsyzlq Comment on above:Problem List clean-up per request of Phys. EHR CmtePulmonary heart disease (1 source)Pulmonary oulyojgmwtyn27-66-8462CdexrwzYhjcncma codes; unclassified (3 sources)Obstructive sleep apnea syndrome; Translations: [Obstructive sleep apnea (adult) (pediatric)]55-71-7090CizxeheMeviosra codes; unclassified (2 sources)Hypersomnia; Translations: [Hypersomnia, unspecified]10-21-2023 ChronicThyroid disorders (1 source)Rkdkdjkhldnhtw83-89-5836Ixlnpjv Past or Other Problems Problem ClassificationProblemDateDocumented DateEpisodic/ChronicCardiac dysrhythmias (2 sources)Palpitations; Translations: [Palpitations]Onset: 52-77-1332Ggegxxct Other lower respiratory disease (2 sources)Hypoxia; Translations: [Hypoxemia]59-90-2430EblpuksrFvxvn lower respiratory disease (2 sources)Snoring; Translations: [Snoring]13-58-7134XbctughqDnipscli codes; unclassified (2 sources)Inadequate sleep hygiene; Translations: [Inadequate sleep hygiene] 82-96-7420Lxyfytbj Results Test NameValueInterpretationReference RangeFacilityOrders Onlyon 12-20-2024 Orders [id number] Nitza Ibanez 1960 M Date Provider Department Center 12/20/2024 MANAV LIANG Family History Problem Relation Age of Onset Cancer Mother Cancer Father Diabetes Sister Cancer Brother Diabetes Brother Family Status - Relation Status Age at Mother Father Sister Alive Brother DeceasedNormalUniNationwide Children's HospitalOffice Visiton 29-52-6811Ecfzhh-up [id number] Nitza Ibanez 1960 M Date Provider Department Center 12/13/2024 MATT STANFORD Family History Problem Relation Age of Onset Cancer Mother Cancer Father Diabetes Sister Cancer Brother Diabetes Brother Family Status - Relation Status Age at Mother Father Sister Alive Brother Level of Service:05488 [place] OFFICE/OUTPATIENT ESTABLISHED LOW MDM 20 MIN Reason for Visit and Comments: Follow-up [765747] - Patient is here today for a 6 month follow up appointment.Patient denies chest pain, SOB/CABRAL, dizziness/lightheaded, leg swelling/pain, abnormal bleeding/bruising. Patient will be having colonoscopy December 30 at [facility]. With Dr. Franco. Patient would like to have an Echo done. 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 At night it goes to 70-75.NormalUnTrinity Health SystemOrders Onlyon 47-45-0931Zyonpz [id number] Nitza Ibanez 1960 M Date Provider Department Center 12/13/2024 CIERRA FONTANEZ Family History Problem Relation Age of Onset Cancer Mother Cancer Father Diabetes Sister Cancer Brother Diabetes Brother Family Status - Relation Status Age at Mother Father Sister Alive Brother DeceasedNormalUniNationwide Children's HospitalOrders [id number] Nitza Ibanez 1960 M Date Provider Department Center 12/13/2024 MANAV LIANG Family History Problem Relation Age of Onset Cancer Mother Cancer Father Diabetes Sister Cancer Brother Diabetes Brother Family Status - Relation Status Age at Mother Father Sister Alive Brother DeceasedNoalUniNationwide Children's HospitalOrders Onlyon 48-66-6449Abvnon [id number] Nitza Ibanez 1960 M Date Provider Department Center 11/03/2024 BRIDGETTE MONROY [facility] CARD [facility] Family History Problem Relation Age of Onset Cancer Mother Cancer Father Diabetes Sister Cancer Brother Diabetes Brother Family Status - Relation Status Age at Mother Father Sister Alive Brother DeceasedNoSelect Medical [facility] [place]36on 63-97-927266Bnsa note says stopped AmioNormalUniNationwide Children's HospitalOrders Onlyon 56-18-8185Ggnqcb [id number] Nitza Ibanez 1960 M Date Provider Department Center 09/01/2024 BRIDGETTE MONROY [facility] CARD [facility] Family History Problem Relation Age of Onset Cancer Mother Cancer Father Diabetes Sister Cancer Brother Diabetes Brother Family Status - Relation Status Age at Mother Father Sister Alive Brother DeceasedCity Hospital36on Patient stopped in to the office today. Patient states he would [...] fine no symptoms at this time. Please advise.City HospitalOffice Visiton 87-67-2274Xgwpdh-up [id number] Nitza Ibanez 1960 M Date Provider Department Center 07/26/2024 MATT STANFORD [facility] Family History Problem Relation Age of Onset Cancer Mother Cancer Father Diabetes Sister Cancer Brother Diabetes Brother Family Status - Relation Status Age at Mother Father Sister Alive Brother Level of Service:28455 [place] OFFICE/OUTPATIENT ESTABLISHED LOW MDM [facility]Orders Only99-46-9056Doafds [id number] Nitza Ibanez 1960 M Date Provider Department Center 07/16/2024 MATT STANFORD [facility] CARD [facility] Family History Problem Relation Age of Onset Cancer Mother Cancer Father Diabetes Sister Cancer Brother Diabetes Brother Family Status - Relation Status Age at Mother Father Sister Alive Brother DeceasedNoSelect Medical [facility] [place]36on Regarding lab results from 05/26/2024: Neena Meade, AUGUSTINE Balderas MA Please let him know his labs overall looked unremarkable. His TSH was slightly higher than his last check. Please have him follow-up with his PCP about this. Please also ask if he has noticed any change in his HR/palpitations. Thanks! Faxed lab results to Dr. Siddiqui's office. LM on patient's VM.[facility]37on *We will start amiodarone to try to help control your heart rate better. *Start amiodarone 400mg (2 tablets of 200mg) twice daily for 10 days. Then take 200mg 1 tablet daily. *Hold verapamil while on amiodarone. *Let us know if you are having any issues with low heart rates or any dizziness/lightheadedness.City HospitalOffice Visit on 76-04-6818Ojoouq-up [id number] Nitza Ibanez 1960 M Date Provider Department Center 05/26/2024 NEENA HORTON CARD [facility] Family History Problem Relation Age of Onset Cancer Mother Cancer Father Diabetes Sister Cancer Brother Diabetes Brother Family Status - Relation Status Age at Mother Father Sister Alive Brother Level of Service:35057 MA OFFICE/OUTPATIENT ESTABLISHED MOD MDM 30 MIN Reason for Visit and Comments: Atrial Fibrillation [80][facility]36on 04-05-2024 36Wife called with BP lo/77 HR 74 133/65 HR 81 151/79 HR 77 145/73 HR 83 133/78 HR 102 133/87 HR 99 123/65 HR 72 130/77 HR 77 124/67 HR 92NormMercy Memorial HospitalFollow-Upon 03-16-2024 Follow-[id number] Nitza Ibanez 1960 M Date Provider Department Center 03/16/2024 [id number], ADAM SAMUEL [facility] Family History Problem Relation Age of Onset Cancer Mother Cancer Father Diabetes Sister Cancer Brother Diabetes Brother Family Status - Relation Status Age at Mother Father Sister Brother Level of Service:75130 MA OFFICE/OUTPATIENT ESTABLISHED LOW [facility] HospitalTelephoneon [id number] Nitza Ibanez 1960 M Date Provider Department Center 02/25/20241986-LETI RYAN C [facility]ASC [facility] Family History Problem Relation Age of Onset Cancer Mother Cancer Father Diabetes Sister Cancer Brother Diabetes Brother Family Status - Relation Status Age at Mother Father Sister Brother Reason for Visit and Comments: 3 week post ablation f/u [Other][facility] Telephoneon [id number] Nitza Ibanez 1960 M Date Provider Department Center 02/18/20241986-LETI RYAN [facility] Family History Problem Relation Age of Onset Cancer Mother Cancer Father Diabetes Sister Cancer Brother Diabetes Brother Family Status - Relation Status Age at Mother Father Sister Brother Reason for Visit and Comments: post ablation f/u [Other][facility]36on 08-34-492013Gb answer when called for discharge call back, message left, call back number provided if he has any questions or concerns.City HospitalTelephoneon [id number] Nitza Ibanez 1960 M Date Provider Department Center 02/06/2024 [facility] Family History Problem Relation Age of Onset Cancer Mother Cancer Father Diabetes Sister Cancer Brother Diabetes Brother Family Status - Relation Status Age at Mother Father Sister Brother Reason for Visit and Comments: Hospital Follow-up [832][facility]30on 02-05-2024 30The patient is Moderately Stable - Low risk of patient condition declining or worsening The patient's goals for the shift include rest/comfort The clinical goals for the shift include VSS, safety Over the shift, the patient did not make progress toward the following goals. Barriers to progression include. Recommendations to address these barriers include.NormalUnTrinity Health System30The patient is Moderately Stable - Low risk of patient condition declining or worsening The patient's goals for the shift include rest/comfort The clinical goals for the shift include VSS,safety Over the shift, the patient did not make progress toward the following goals. Barriers to progression include. Recommendations to address these barriers include.NormalCity HospitalBASIC METABOLIC PANELon 57-77-9024Zlyvw gap [Moles/Vol]12 mmol/LNormal7-20UnTrinity Health SystemComment on above:Performed By: #### [id number] ####[facility] ([facility])[address] [place], [place] [address]Ktvfxnh [Mass/Vol]8.5 mg/dLLow8.6-10.3 City HospitalComment on above:Performed By: #### [id number] ####[facility] ([facility])[address] [place], [place] [address]Tqrmlzlj [Moles/Vol]103 mmol/RAydokj57-873MzddadbqanTrinity Health SystemComment on above:Performed By: #### [id number] ####[facility] ([facility])[address] [place], [place] [address]TT1 [Moles/Vol]23 mmol/LDbvqby70-98JmkhjuebdmTrinity Health SystemComment on above:Performed By: #### [id number] ####[facility] ([facility])[address] [place], [place] [address]Jjghlmwvrh [Mass/Vol]0.86 mg/dLNormal 0.70-1.30UnTrinity Health SystemComment on above:Performed By: #### [id number] ####[facility] ([facility])[address] [place], [place] [address]FPVVUCBCMN FILTRATION RATE ML/MIN/1.73 SQ M.CQVBBPTCZ44.7 mL/min/1.73m*2Normal>60.0 City HospitalComment on above:Result Comment: [facility]???s estimated glomerular filtration rate (eG FR) will no longer include consideration of race [...] potential consequences that do not disproportionately affect anyone group of individuals. Performed By: #### [id number] ####[facility] ([facility])[address] [place], [place] [address]Lgaohok [Mass/Vol]141 mg/kEKcln76-992MoqumnppbkTrinity Health SystemComment on above:Performed By: #### [id number] ####[facility] ([facility])[address] [place], [place] [address]Mrrjbtliw [Moles/Vol]4.0 mmol/LNormal 3.5-5.1UnTrinity Health SystemComment on above:Performed By: #### [id number] ####[facility] ([facility])[address] [place], [place] [address]Mlhxao [Moles/Vol]134 mmol/VJcj771-632SehzllldxfTrinity Health SystemComment on above:Performed By: #### [id number] ####[facility] ([facility])[address], [place] [address]Ozej nitrogen [Mass/Vol]19 mg/dLNormal7-25UnTrinity Health SystemComment on above:Performed By: #### [id number] ####[facility] ([facility])[address] [place], [place] [address]OBMR NITROGEN/CREATININE (MASS RATIO) IN SER/PLAS22.1NormalUnTrinity Health SystemComment on above: Performed By: #### [id number] ####[facility] ([facility])[address] [place] [place], [place] [address]TPJVL CULTUREon 97-58-2391Ykqczymv identified Cx Nom (Bld)No growth at 5 daysNormalUniversity of Dos Santos Medical CenterComment on above:Performed By: #### [id number] #### [facility] ([facility]) [address] [place] [address]Epjvw Comment: From a different site than #1.Performed By: #### [id number] ####[facility] ([facility])[address] [place] [address]HLA WITH AUTO DIFFERENTIALon 70-26-8990Dfougbdge (Bld) [#/Vol]0.01 10*3/uLNormal0.00-0.20 City HospitalComment on above:Performed By: #### [id number] #### [facility] ([facility]) [address] [place] [address]Vkpsuyiqz/100 WBC (Bld)0.1 %Normal0.0-1.0UnTrinity Health SystemComment on above:Performed By: #### [id number] #### [facility] ([facility]) [address] [place], [place] [address]Ztniearaent (Bld) [#/Vol]0.00 10*3/uLNormal0.00-0.50UnTrinity Health SystemComment on above:Performed By: #### [id number] #### [facility] ([facility]) [address] [place] [address]Cfgiiaxzvfk/100 WBC (Bld)0.0 %Normal0.0-6.0UnTrinity Health SystemComment on above:Performed By: #### [id number] #### [facility] ([facility]) [address] [place], [place] [address]Qilxqpqzwvj distribution width (RBC) [Ratio]13.3 %Normal 11.5-15.0UnTrinity Health SystemComment on above:Performed By: #### [id number] #### [facility] ([facility] [address] [place], [place] [address]XLWGHFPKOZL MEAN CORPUSCULAR HEMOGLOBIN CONCENTRATION (G/DL) BY ANNBOIMIM10.1 g/rFDjjggv23.0-35.0UnTrinity Health SystemComment on above:Performed By: #### [id number] #### [facility] ([facility] [address] [place] [address]Pfgxlrjaxz (Bld) [Volume fraction]38.1 %Low39.0-55.0UnTrinity Health SystemComment on above:Performed By: #### [id number] #### [facility] ([facility]) [address] [place] [address]Xtogijsyqo (Bld) [Mass/Vol]12.6 g/dLLow13.0-17.0UnTrinity Health SystemComment on above:Performed By: #### [id number] #### [facility] ([facility]) [address] [place] [address]Nmppgqux granulocytes (Bld) [#/Vol]0.08 10*3/uLNormal0.00-0.20 City HospitalComment on above:Performed By: #### [id number] #### [facility] [facility] [address] [place] [address]Ftstwher granulocytes/100 WBC (Bld)0.6 %Normal0.0-1.0UnTrinity Health SystemComment on above:Performed By: #### [id number] #### [facility] (BEAKER) [address] [place] [address]Wrlnqgixpoi (Bld) [#/Vol]0.95 10*3/uLLow1.20-4.00UnTrinity Health SystemComment on above:Performed By: #### [id number] #### [facility] (BEAKER) [address] [place] [address]Cwlucwyupjx/100 WBC (Bld)6.6 %Low20.0-45.0UnTrinity Health SystemComment on above:Performed By: #### [id number] #### [facility] (BEAKER) [address] [place] [address]ZFG (RBC) [Entitic mass]28.6 uzDdhgvh99.0-33.0UnTrinity Health SystemComment on above:Performed By: #### [id number] #### [facility] ([facility]) [address] [place] [address]NMQ (RBC) [Entitic vol]86.6 mFSenxnt49.0-98.0UnTrinity Health SystemComment on above:Performed By: #### [id number] #### [facility] ([facility]) [address] [place] [address]Pzkuiojqk (Bld) [#/Vol]0.96 10*3/uLNormal0.10-1.00UnTrinity Health SystemComment on above:Performed By: #### [id number] #### [facility] ([facility]) [address] [place], [place] [address]Ylbuuklrm/100 WBC (Bld)6.7 %Normal5.0-12.0UnTrinity Health SystemComment on above:Performed By: #### [id number] #### [facility] ([facility]) [address] [place], [place] [address]Quicjachtdd (Bld) [#/Vol]12.36 10*3/uLHigh1.60-7.60UnTrinity Health SystemComment on above:Performed By: #### [id number] #### [facility] ([facility]) [address] [place] [address]Yyrxkptajmh/100 WBC (Bld)86.0 %High40.0-72.0UnTrinity Health SystemComment on above:Performed By: #### [id number] #### [facility] ([facility]) [address] [place], [place] [address]LCQN (PER 100 WBCS) BY AUTOMATED COUNT0.0 %Mdoqyw9EsyzstvftyTrinity Health SystemComment on above:Performed By: #### [id number] #### [facility] ([facility]) [address] [place], [place] [address]LLSWIAERV (10*3/UL) IN BLOOD AUTOMATED [id number] 10*3/uLNormal 150-400UnTrinity Health SystemComment on above:Performed By: #### [id number] #### [facility] ([facility]) [address] [place] [address]IEV (Bld) [#/Vol]4.40 10*6/uLNormal4.20-5.70UnTrinity Health SystemComment on above:Performed By: #### [id number] #### [facility] ([facility]) [address] [place] [address]YZC (Bld) [#/Vol]14.36 10*3/uLHigh4.00-10.60UnTrinity Health SystemComment on above:Performed By: #### [id number] #### [facility] ([facility]) [address] [place] [address]NVfb [id number] Attestation signed by Matt Quevedo MD at 02/16/2024 9:19 PM By using [...] fibrillatio* Discharge Diagnosis PAF (paroxysmal atrial fibrillation) ([facility]) Discharge Disposition Home or Self Care (01) [...] Medications These medications were sent to [facility] - [address] [place] [address] [address] [facility] [place] [address], [facility] [address] famotidine 20 mg tablet omeprazole 40 mg [...] isolation and comprehensive EP study with Dr. Quevedo, and was admitted post ablation procedure for [...] is performed under the ED CLIA certificate #[id number]. CBC WITH AUTO DIFFERENTIAL - Abnormal Auto [...] (*) Lymphocytes Absolute 0.9 (more content not included)...NormalUnTrinity Health SystemLACTIC ACID WITH 4 HOUR REFLEXon 33-32-3589GMFGDDI (MMOL/L) IN SER/PLAS2.4 mmol/LHigh0.5-2.2[facility] Medical CenterComment on above:Performed By: #### [id number] #### [facility] (MARVIN) [address] [place], [place] [address]Cuqobu Onlyon 52-42-3815Ttzjmt [id number] Nitza Ibanez 1960 M Date Provider Department Center 02/05/20241986-[facility] Family History Problem Relation Age of Onset Cancer Mother Cancer Father Diabetes Sister Cancer Brother Diabetes Brother Family Status - Relation Status Age at Mother Father Sister BrotherNormalUniversThe Christ HospitalPROTIME-INRon [id number] IN PPP BY COAGULATION ASSAY2.50Lmft6.90-1.10UnTrinity Health System Comment on above:Result Comment: ACC RECOMMENDED INR FOR WARFARIN THERAPY CONDITION INR PROPHYLAXIS OF VENOUS THROMBOSIS 2-3 (HIGH-RISK SURGERY) TREATMENT OF VENOUS THROMBOSIS 2-3 TREATMENT OF PULMONARY EMBOLISM 2-3 PREVENTION OF SYSTEMIC EMBOLISM: 2-3 ACUTE MYOCARDIAL INFARCTION TISSUE HEART VALVES VALVULAR HEART DISEASE ATRIAL FIBRILLATION RECURRENT SYSTEMIC EMBOLISM MECHANICAL HEART VALVE 2.5-3.5 FROM: ORAL ANTICOAGULANTS. MECHANISM OF ACTION, CLINICAL EFFECTIVENESS, AND OPTIMAL THERAPEUTIC RANGE. CHEST 1995;108:231S-246S.Performed By: #### [id number] #### [facility] ([place]) [address] [place], [place] [address]NEPGKVEYENK TIME (PT) IN PPP BY COAGULATION ASSAY29.3 Seconds High12.3-14.8UnTrinity Health SystemComment on above:Performed By: #### [id number] #### [facility] ([place]) [address] [place], [place] [address]tl [id number] patient is Moderately Stable - Low risk [...] and behaviors that affect risk of falls [place] fall precautions as indicated by assessment Educate [...] and comorbid conditions and prevent exacerbation or deteriorationNormalUniversity of Texas Health Harris Methodist Hospital AzleCB WITH AUTO DIFFERENTIALon 17-49-4721Jyfwwccew (Bld) [#/Vol]0.02 10*3/uLNormal0.00-0.20UnTrinity Health SystemComment on above: Performed By: #### [id number] #### [facility] ([facility]) [address] [place] [address]Hkoiqxmys/100 WBC (Bld)0.2 %Normal0.0-1.0UnTrinity Health SystemComment on above:Performed By: #### [id number] #### [facility] ([facility]) [address] [place] [address]Xqilcdfecmg (Bld) [#/Vol]0.01 10*3/uLNormal0.00-0.50UnTrinity Health SystemComment on above:Performed By: #### [id number] #### [facility] ([facility]) [address] [place] [address]Hriunqjdjqp/100 WBC (Bld)0.1 %Normal0.0-6.0UnTrinity Health SystemComment on above:Performed By: #### [id number] #### [facility] ([facility]) [address] [place], [place] [address]Ibiwmnnnilu distribution width (RBC) [Ratio]13.0 %Normal 11.5-15.0UnTrinity Health SystemComment on above:Performed By: #### [id number] #### [facility] ([facility]) [address] [place], [place] [address]BLUGTCGRXHA MEAN CORPUSCULAR HEMOGLOBIN CONCENTRATION (G/DL) BY XVJQANKPH02.4 g/nCJdwvfx72.0-35.0UnTrinity Health SystemComment on above:Performed By: #### [id number] #### [facility] ([facility]) [address] [place], [place] [address]Xzzqydtplo (Bld) [Volume fraction]40.4 %Ywdccy26.0-55.0 City HospitalComment on above:Performed By: #### [id number] #### [facility] ([facility] [address] [place], [place] [address]Sjggayhmjv (Bld) [Mass/Vol]13.5 g/eSUcudhb64.0-17.0UnTrinity Health SystemComment on above:Performed By: #### [id number] #### [facility] ([facility]) [address] [facility] [place], [place] [address]Tfzwrfub granulocytes (Bld) [#/Vol]0.06 10*3/uLNormal0.00-0.20 City HospitalComment on above:Performed By: #### [id number] #### [facility] ([facility]) [address] [place], [place] [address]Jkexmwqa granulocytes/100 WBC (Bld)0.6 %Normal0.0-1.0UnTrinity Health SystemComment on above:Performed By: #### [id number] #### [facility] ([facility]) [address] [place], [place] [address]Zqiblqibepz (Bld) [#/Vol]0.65 10*3/uLLow1.20-4.00UnTrinity Health SystemComment on above:Performed By: #### [id number] #### [facility] ([facility]) [address] [place], [place] [address]Clyyfvfsror/100 WBC (Bld)6.2 %Low20.0-45.0UnTrinity Health SystemComment on above:Performed By: #### [id number] #### [facility] ([facility]) [address] [place], [place] [address]LZJ (RBC) [Entitic mass]28.6 yiTijuap58.0-33.0UnTrinity Health SystemComment on above:Performed By: #### [id number] #### [facility] ([facility]) [address] [place], [place] [address]WLB (RBC) [Entitic vol]85.6 sMJuwhwu26.0-98.0UnTrinity Health SystemComment on above:Performed By: #### [id number] #### [facility] ([facility]) [address] [place] [address]Iokeeijur (Bld) [#/Vol]0.10 10*3/uLNormal0.10-1.00UnTrinity Health SystemComment on above:Performed By: #### [id number] #### [facility] ([facility]) [address] [place] [address]Qbsdvfxpy/100 WBC (Bld)0.9 %Low5.0-12.0UnTrinity Health SystemComment on above:Performed By: #### [id number] #### [facility] ([facility]) [address] [place] [address]Zuipfeqopas (Bld) [#/Vol]9.69 10*3/uLHigh1.60-7.60UnTrinity Health SystemComment on above:Performed By: #### [id number] #### [facility] ([facility]) [address] [place], [place] [address]Gbdaqdchqps/100 WBC (Bld)92.0 %High40.0-72.0UnTrinity Health SystemComment on above:Performed By: #### [id number] #### [facility] ([facility]) [address] [place], [place] [address]OBAD (PER 100 WBCS) BY AUTOMATED COUNT0.0 %Pmzukg9IxgvlqkuayTrinity Health SystemComment on above:Performed By: #### [id number] #### [facility] ([facility]) [address] [place], [place] [address]ACJBEWXTL (10*3/UL) IN BLOOD AUTOMATED [id number] 10*3/uLNormal 150-400UnTrinity Health SystemComment on above:Performed By: #### [id number] #### [facility] ([facility]) [address] [place] [address]XLJ (Bld) [#/Vol]4.72 10*6/uLNormal4.20-5.70UnTrinity Health SystemComment on above:Performed By: #### [id number] #### [facility] (BEAKER) [address] [place], [place] [address]ZVE (Bld) [#/Vol]10.53 10*3/uLNormal4.00-10.60UnTrinity Health SystemComment on above:Performed By: #### [id number] #### [facility] (BEAKER) [address] [place], [place] [address]IXoi 95-75-0139YEXQ Electrophysiology Consult Note Reason for visit: AF, [...] At one point was being seeing by [facility] EP for PPM but no PPM [...] 125, triglycerides 162, hemoglobin A1c 5.4 Per [facility] cardiology 09/2020 HISTORY OF PRESENT ILLNESS: [...] Resource Strain: Low Risk (09/26/2019) Received from [employer] [employer] Overall Financial Resource Strain (CARDIA) Difficulty of Paying Living Expenses: Not hard at all Food Insecurity: Not on file Transportation Needs: No Transportation Needs (09/26/2019) Received from [employer], [employer] PRAPARE - Transportation Lack of Transportation (Medical): No Lack of Transportation (Non-Medical): No Physical Activity: Sufficiently Active (09/26/2019) Received from [employer] Exercise Vital Sign Days of Exercise per Week: 2 days Minutes of Exercise per Session: 150+ min Stress: No Stress Concern Present (09/26/2019) Received from [employer] [place] [employer] - Occupational Stress Questionnaire Feeling of Stress : Only a little Social Connections: Moderately Integrated (09/26/2019) Received from [employer] Social Connection and Isolation Panel [NHANES] Frequency of (more content not included)...NormalUnTrinity Health SystemPOCT ACTIVATED CLOTTING TIME UNSOLICITED RESULTSon 83-36-9883JHX ACTIVATED CLOTTING [id number] axzZhrnwo87-660VssfteurycTrinity Health SystemComment on above:Performed By: #### [id number] ####[facility] (BEAKER)[address] [place], [place] [address]IJDE GLUCOSE METER UNSOLICITED RESULTSon 73-30-8694Akrgqdh [Mass/Vol]111 mg/aPZbde78-447CpvtrizgolTrinity Health SystemComment on above:Order Comment: Waived Testing in the ED is performed under the ED CLIA certificate #[id number].Result Comment: ngrothaPerformed By: #### [id number] #### [facility] (BEAKER) [address] [place], [place] [address]OGMSMCP-EKIkw 12-77-8528LKW IN PPP BY COAGULATION ASSAY2.20High 0.90-1.10UnTrinity Health SystemComment on above:Result Comment: ACCCP RECOMMENDED INR FOR WARFARIN THERAPY CONDITION INR PROPHYLAXIS OF VENOUS THROMBOSIS 2-3 (HIGH-RISK SURGERY) TREATMENT OF VENOUS THROMBOSIS 2-3 TREATMENT OF PULMONARY EMBOLISM 2-3 PREVENTION OF SYSTEMIC EMBOLISM: 2-3 ACUTE MYOCARDIAL INFARCTION TISSUE HEART VALVES VALVULAR HEART DISEASE ATRIAL FIBRILLATION RECURRENT SYSTEMIC EMBOLISM MECHANICAL HEART VALVE 2.5-3.5 FROM: ORAL ANTICOAGULANTS. MECHANISM OF ACTION, CLINICAL EFFECTIVENESS, AND OPTIMAL THERAPEUTIC RANGE. CHEST 1995;108:231S-246S.Performed By: #### [id number] #### [facility] (BEAKER) [address] [place], [place] [address]CYECFXHFMMG TIME (PT) IN PPP BY COAGULATION ASSAY24.0 Seconds High12.3-14.8UnTrinity Health SystemComment on above:Performed By: #### [id number] #### [facility] (BEAKER) [address] [place], [place] [address]Dmpp for Procedureon 20-83-9238Wysf for [id number] Nitza Ibanez 1960 M Date Provider Department Center 02/04/2024 1987-LETI R[facility]AN [facility] VASC LAB AR HeartVAS Family History Problem Relation Age of Onset Cancer Mother Cancer Father Diabetes Sister Cancer Brother Diabetes Brother Family Status - Relation Status Age at Mother Father Sister BrotherNormalUniversity of Texas Health [facility] Hospital AzleOrders Onlyon 36-76-0849Fuphki [id number] Nitza Ibanez 1960 M Date Provider Department Center 02/02/2024 Telma[facility] PAT AR Medical C Family History Problem Relation Age of Onset Cancer Mother Cancer Father Diabetes Sister Cancer Brother Diabetes Brother Family Status - Relation Status Age at Mother Father Sister BrotherNormalUniversity of Texas Health [facility] Hospital AzleOffice Visiton 62-85-9546Ghcwqd- up [id number] Nitza Ibanez 1960 M Date Provider Department Center 01/26/2024 241-[facility] Family History Problem Relation Age of Onset Cancer Mother Cancer Father Diabetes Sister Cancer Brother Diabetes Brother Family Status - Relation Status Age at Mother Father Sister Brother Level of Service:24397 MA OFFICE/OUTPATIENT ESTABLISHED MOD MDM 30 [facility] HospitalPrep for Procedureon 29-32-1966Srku for [id number] Nitza Ibanez Kevin 1960 M Date Provider Department Center 12/31/2023 Michelle-LETI RYAN [facility] VASC LAB UT HeartVAS Family History Problem Relation Age of Onset Cancer Mother Cancer Father Diabetes Sister Cancer Brother Diabetes Brother Family Status - Relation Status Age at Mother Father Sister BrotherNormalUniversThe Christ HospitalOffice Visiton 73-67-9642Rvophn- up [id number] Nitza Ibanez Kevin 1960 M Date Provider Department Center 12/29/2023 [facility] Family History Problem Relation Age of Onset Cancer Mother Cancer Father Diabetes Sister Cancer Brother Diabetes Brother Family Status - Relation Status Age at Mother Father Sister Brother Level of Service:93936 MA OFFICE/OUTPATIENT ESTABLISHED HIGH MDM 40 [facility] HospitalCBC AUTO DIFFon 15-50-8581WXXL #0.0 103/ul Normal0.0-0.1[facility] Community HospitalComment on above:Performed By: #### CBC #### [facility] [address] [place] [address] Dr. Pérez MgBasophils/100 WBC (Bld)0.6 %Normal0.2-2.0[facility] Comment on above:Performed By: #### CBC #### [facility] [address] [place] [address] [address] Pérez Zapata #0.5 103/ulNormal0.0-0.7The [facility] HospitalComment on above: Performed By: #### CBC #### [facility] [address] [place] [address] Dr. Pérez Jacksonosinophils/100 WBC (Bld)8.6 %Critically high0.9-7.0The [facility] HospitalComment on above:Performed By: #### CBC #### [facility] [address] [address] [address] Pérez Jacksonrythrocyte distribution width (RBC) [Ratio]13.2 %Vubjao77.0-15.0 The [facility] HospitalComment on above:Performed By: #### CBC #### [facility] [address] [address] [address] Pérez MgHematocrit (Bld) [Volume fraction]43.2 %Baeubd37.0-54.0The [facility] HospitalComment on above:Performed By: #### CBC #### [facility] [address] [place] [address] Dr. Pérez MgHemoglobin (Bld) [Mass/Vol]14.6 g/xMVtdrgq34.0-18.0The [facility] HospitalComment on above:Performed By: #### CBC #### [facility] [address] [place] [address] Dr. Pérez Monson #0.06 10e3/ulCritically high0.00-0.03[facility] Comment on above:Performed By: #### CBC #### [facility] [address] [place] [address] Dr. Pérez Monson %1.0 %Critically high0.0-0.5The [facility] HospitalComment on above:Performed By: #### CBC #### [facility] [address] [place] [address] Dr. Pérez HerringH #1.1 103/ulCritically low1.2-3.8The [facility] Comment on above:Performed By: #### CBC #### [facility] [address] [place] [address] Dr. Pérez Fraustomphocytes/100 WBC (Bld)17.5 %Critically low20.5-60.0The [facility] HospitalComment on above:Performed By: #### CBC #### [facility] [address] [place] [address] Dr. Pérez JenningsUAL DIFF REQNONormalThe [facility] HospitalComment on above: Performed By: #### CBC #### [facility] [address] [address] [address] Pérez Christy (RBC) [Entitic mass]29.0 lvOfkpah71.9-34.0The [facility] HospitalComment on above:Performed By: #### CBC #### [facility] [address] [address] [address] Pérez Christy (RBC) [Mass/Vol]33.8 g/jBMshseh65.9-35.2The [facility] HospitalComment on above:Performed By: #### CBC #### [facility] [address] [place] [address] Dr. Pérez ChristyV (RBC) [Entitic vol]85.9 uYFdhwgg03.0-94.0The [facility] HospitalComment on above:Performed By: #### CBC #### [facility] [address] [place] [address] Dr. Pérez Martin #0.5 103/ulNormal0.3-0.8The [facility] HospitalComment on above:Performed By: #### CBC #### [facility] [address] [place] [address] Dr. Pérez Gordonocytes/100 WBC (Bld)8.3 %Normal1.7-12.0The [facility] Comment on above:Performed By: #### CBC #### [facility] [address] [address] [address] Pérez Aviles #4.0 103/ulNormal1.4-6.5The [facility] HospitalComment on above:Performed By: #### CBC #### [facility] [address] [place] [address] Dr. Pérez Lindquistutrophils/100 WBC (Bld)64.0 %Flbjqw28.0-75.0The [facility] HospitalComment on above:Performed By: #### CBC #### [facility] [address] [place] [address] Dr. Pérez Saucedalet mean volume (Bld) [Entitic vol]9.1 fLCritically low 9.5-13.5The [facility] HospitalComment on above:Performed By: #### CBC #### [facility] [address] [address] [address] Pérez MgPLT213 103/lsLvlsjl444-801Uqx [facility] on above: Performed By: #### CBC #### [facility] [address] [address] [address] Pérez MgRBC5.03 106/ulNormal4.70-6.10The [facility] HospitalComment on above:Performed By: #### CBC #### [facility] [address] [place] [address] Dr. Pérez MgWBC6.3 103/ulNormal4.0-11.0The [facility] HospitalComapex medical center on above: Performed By: #### CBC #### [facility] [address] [place] [address] Dr. Pérez MgGLYCOHEMOGLOBIN A1Con 22-18-9654HZC RECOMMENDATIONSEE BELOWAshtabula County Medical CenterComapex medical center on above:Result Comment: ADA RECOMMENDED LIMIT 4.0 - 6.0 ADA THERAPEUTIC TARGET < 7.0 ACTION SUGGESTED > 7.0Performed By: #### A1C #### [facility] [address] [place] [address] Dr. Pérez MgGlucose [Mass/Vol]105 mg/dLNoCincinnati Children's Hospital [facility] on above:Performed By: #### A1C #### [facility] [address] [place] [address] Dr. Pérez MgHbA1c (Bld) [Mass fraction]5.3 %Normal4.5-6.2The [facility] on above:Performed By: #### A1C #### [facility] [address] [place] [address] Dr. Pérez MgLIPID PROFILEon 10-31-1435AWQY-HDL RATIO NORMSEE BELOWCincinnati Shriners HospitalComapex medical center on above:Result Comment: 3.3 - 4.4 LOW RISK 4.4 - 7.1 AVERAGE RISK 7.1 - 11.0 MODERATE RISK >11.0 HIGH RISKPerformed By: #### LIPID, CMP #### [facility] [address] [place] [address] Dr. Pérez MgCholesterol [Mass/Vol]201 mg/dLCritically high<=200The [facility] on above:Performed By: #### LIPID, CMP #### [facility] [address] [place] [address] Dr. Pérez MgCholesterol in HDL [Mass/Vol]41 mg/lMRbaryr34-75Nnq [facility] HospitalComapex medical center on above:Performed By: #### LIPID, CMP #### [facility] [address] [place] [address] Dr. Pérez MgCholesterol in LDL [Mass/Vol]122.8 mg/dLCincinnati Shriners HospitalComapex medical center on above:Performed By: #### LIPID, CMP #### [facility] [address] [place] [address] Dr. Pérez Milleresterjose juan.total/Cholesterol in HDL [Mass ratio]4.9 {ratio} NormalThe [facility] HospitalComapex medical center on above:Performed By: #### LIPID, CMP #### [facility] [address] [place] [address] Dr. Pérez Arenas NORMAL> or = 60 mg/dl - LOW CARDIOVASCULAR RISK <40 mg/dl - HIGH CARDIOVASCULAR RISKCincinnati Shriners HospitalComapex medical center on above:Performed By: #### LIPID, CMP #### [facility] [address] [place] [address] Dr. Pérez MgLDL CALC NORMALSEE BELOWCincinnati Shriners HospitalComment on above:Result Comment: <100 mg/dl OPTIMAL 100 - 129 mg/dl NEAR OR ABOVE OPTIMAL 130 - 159 mg/dl BORDERLINE HIGH 160 - 189 mg/dl HIGH >190 mg/dl VERY HIGH Performed By: #### LIPID, CMP #### [facility] [address] [place] [address] Dr. Pérez MgTriglyceride [Mass/Vol]186 mg/dLCritically high<=150The [facility] Regional Hospitalment on above:Performed By: #### LIPID, CMP #### [facility] [address] [address] [address] Pérez MgVLDL CALC37.2 mg/dLNormalThe [facility] HospitalComment on above: Performed By: #### LIPID, CMP #### [facility] [address] [address] [address] Pérez MgPROF 14(COMP METB)on 59-86-4221Fnuhuut [Mass/Vol]3.9 g/dLNormal 3.4-5.0The [facility] HospitalComment on above:Performed By: #### LIPID, CMP #### [facility] [address] [address] [address] Pérez MgAlbumin/Globulin [Mass ratio]1.1 {ratio}NormalThe [facility] HospitalComment on above:Performed By: #### LIPID, CMP #### [facility] [address] [address] [address] Pérez Gomez [Catalytic activity/Vol]65 U/ICgoyyq23-396Poi [facility] HospitalComment on above:Performed By: #### LIPID, CMP #### [facility] [facility] [address] [address] [address] Pérez Patel [Catalytic activity/Vol]41 U/SQfflon28-20Egr [facility] HospitalComment on above:Performed By: #### LIPID, CMP #### [facility] [address] [address] [address] Pérez Guillen gap [Moles/Vol]10.3 mmol/LNormalThe [facility] Comment on above:Performed By: #### LIPID, CMP #### [facility] [address] [address] [address] Pérez Woodard [Catalytic activity/Vol]33 U/KWpujrh60-57Vrh [facility] HospitalComment on above:Performed By: #### LIPID, CMP #### [facility] [address] [address] [address] Pérez MgBilirubin [Mass/Vol]0.5 mg/dLNormal0.2-1.0The [facility] Comment on above:Performed By: #### LIPID, CMP #### [facility] [address] [address] [address] Pérez MgCalcium [Mass/Vol]9.0 mg/dLNormal8.5-10.1The [facility] Comment on above:Performed By: #### LIPID, CMP #### [facility] [address] [address] [address] Pérez MgChloride [Moles/Vol]103 mmol/UKrflwz15-733Jtv [facility] Comment on above:Performed By: #### LIPID, CMP #### [facility] [address] [address] [address] Pérez MgCO2 [Moles/Vol]27.7 mmol/QOwlhvu53.0-32.0The [facility] Comment on above:Performed By: #### LIPID, CMP #### [facility] [address] [address] [address] Pérez MgCreatinine [Mass/Vol]0.73 mg/dLNormal0.70-1.30The [facility] HospitalComment on above:Performed By: #### LIPID, CMP #### [facility] [address] [address] [address] Pérez JacksonGFR-AF SUDANESE>60Normal>=60The [facility] HospitalComment on above:Performed By: #### LIPID, CMP #### [facility] [address] [address] [address] Pérez JacksonGFR-NON AF SUDANESE>60Normal>=60The [facility] HospitalComment on above:Performed By: #### LIPID, CMP #### [facility] [address] [address] [address] Pérez MgGlobulin (S) [Mass/Vol]3.6 g/dLNormalThe [facility] HospitalComment on above:Performed By: #### LIPID, CMP #### [facility] [address] [place] [address] Dr. Pérez MgGlucose [Mass/Vol]110 mg/dLCritically lkzw57-584Kiu [facility] HospitalComment on above:Performed By: #### LIPID, CMP #### [facility] [address] [address] [address] Pérez MgPotassium [Moles/Vol]4.0 mmol/LNormal3.5-5.1The [facility] Comment on above:Performed By: #### LIPID, CMP #### [facility] [address] [place] [address] Dr. Pérez MgProtein [Mass/Vol]7.5 g/dLNormal6.4-8.2[facility] Comment on above:Performed By: #### LIPID, CMP #### [facility] [address] [place] [address] Dr. Pérez MgSodium [Moles/Vol]137 mmol/HBwaxoc860-646Wwc [facility] Comment on above:Performed By: #### LIPID, CMP #### [facility] [address] [place] [address] Dr. Pérez MgUrea nitrogen [Mass/Vol]16.0 mg/dLNormal7.0-18.0The [facility] HospitalComment on above:Performed By: #### LIPID, CMP #### [facility] [address] [place] [address] Dr. Pérez Long nitrogen/Creatinine [Mass ratio]21.9 mg/mgNormalThe [facility] HospitalComment on above:Performed By: #### LIPID, CMP #### [facility] [address] [place] [address] Dr. Pérez Short 36-67-1054XQSILqndoguvf (GAIL) NITZA IBANEZ ([id number]) 1960 M Date Time Provider Department 01/28/21 SHAQ LUNA During your visit today, we recorded the following information about you: Ha Silveira 01/28/2021 2:35 PM Signed Outside medical records uploaded to itraveleBox: CT/OT - CTA chest with contrast - [...] mouth daily as directed. [facility] - levothyroxine (SYNTHROID) 25 mcg [...] 09/26/2020 Encounter Status:Closed by ANA FRAZIER on 01/28/21[facility] 44-48-7057ONDERrfgyu Visit (CARIMN) NITZA IBANEZ ([id number]) 1960 M Date Time Provider Department 09/26/20 12:30 PM NIMO DEAN During your visit today, we recorded the following information about you: Pulse Respiration Blood pressure Weight 63/minute 12/minute 176/72 69.4 kg Height 1.778 m Nimo Dean MD 10/24/2020 11:55 AM [facility] [place] Indra Tse Department of Cardiovascular Medicine SECTION OF CARDIOVASCULAR IMAGING OUTPATIENT VISIT DATE September 26, 2020 OUTPATIENT VISIT TYPE NEW PRIMARY CARE PHYSICIAN: Nehemiah Siddiqui MD [address] [place] [address] REFERRING PHYSICIAN: Shaq Luna [address] [place] [id number] CHIEF COMPLAINT: Valvular heart disease HISTORY OF [...] daily as directed. As directed by [facility] coumadin [facility]. levothyroxine (SYNTHROID) [...] Negative for: Headache, Impai (more content not included)...Normal [facility] 58-59-5458AJADGksuko Visit (CARDMN) NITZA IBANEZ ([id number]) 1960 M Date Time Provider Department 07/26/20 12:15 PM SHAQ LUNA During your visit today, we recorded the following information about you: Pulse Blood pressure Weight Height 56/minute 167/76 69.4 kg 1.778 m Shaq Luna MD 07/26/2020 1:53 PM Signed REFERRING/OTHER PHYSICIANS: Nehemiah Siddiqui MD (PCP); Abner Young MD (CV) CHIEF [...] fibrillation, sudden deaths. 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 . Daughter A AND W. 2 grandchildren. Lives in [place], [place]. Habits: Tobacco: none. Alcohol: never. Caffeine: [...] Dark black stools-No. Neurological/Psychiatric: Weakness, paralysis-No, Numbness-No, (more content not included)...NormalOur Lady of Mercy Hospitalon 57-51-0912YRWQMnrchbutk (CARDMN) NITZA IBANEZ ([id number]) 1960 M Date Time Provider Department 07/20/20 SHAQ LUNA During your visit today, we recorded the following information about you: Ha Duvall 07/20/2020 4:14 PM Signed Outside medical records scanned into [employer]. Patient scheduled to see Dr. Shaq Luna on July 26, 2020. Allergies As of Date: 07/20/2020 (Not on File) Date Reviewed: Never Reviewed Reason for Visit: Received Outside Medical Records [3576] Problem List As Of Date: 07/20/2020 (None) Encounter Status:Closed by HA VLALES on 07/20/20NoMarymount HospitalCNCOon 91-71-1787XQAPRzqndx TextNoMarymount Hospital CNPNon 19-55-3587SKLJAjchsuxxu (REFPHY) NITZA IBANEZ ([id number]) 1960 M Date Time Provider Department 06/26/20 NO PCP (HISTORICAL) REFPHY During your visit today, we recorded the following information about you: Aj Saez 06/26/2020 12:18 PM Signed Patient: Nitza Kevin Marcelle Date of : 1960 Patient phone number: [phone] Referring Provider for the encounter: Nehemiah Siddiqui Requesting Provider: Someone that specializes in Valve Disease Reason for requesting visit (RFV/signs and symptoms/diagnosis): Bradycardia, tachycardia Person calling: self Return call to: self Medical Records/Insurance Card scanned into [facility]: Yes Comments: Valve Replacement X2 Allergies As of Date: 06/26/2020 (Not on File) Date Reviewed: Never Reviewed Reason for Visit: External Referrals/resources [909] Problem List As Of Date: 06/26/2020 (None) Encounter Status:Closed by AJ SAEZ on 06/26/20[facility] Auto Diffon 08-50-1140Wxnskqrga #/vol (Bld)0.0 10*3/uLNormal0.0-0.2FUniversity Hospitals Lake West Medical CenterComment on above:Order Comment: Comment send tubes to 210Result Comment: PERFORMED BY: [place] [address] PATHOLOGIST FILL MANAGER LESLYE GONZALEZ M.D.Performed By: #### CBC #### [facility] [address] [place] [address] USABasophils/100 WBC (Bld)0.7 %Normal.Corey HospitalComment on above:Order Comment: Comment send tubes to 210Performed By: #### CBC #### [facility] [address] [place] [address] USAEosinophils #/vol (Bld)0.3 10*3/uLNormal0.0-0.45Corey HospitalComment on above:Order Comment: Comment send tubes to 210 Performed By: #### CBC #### [facility] [address] [place] [address] USAEosinophils/100 WBC (Bld)6.0 %Normal.Corey HospitalComment on above:Order Comment: Comment send tubes to 210Performed By: #### CBC #### [place] [address] USAErythrocyte distribution width Ratio (RBC)14.1 %Normal 12.0-14.8Corey HospitalComment on above:Order Comment: Comment send tubes to 210Performed By: #### CBC #### [place] [address] USAHematocrit Volume Fraction (Bld)44.5 %Fzwoxa41.8-50.0 Corey HospitalComment on above:Order Comment: Comment send tubes to 210Performed By: #### CBC #### [facility] [address] [place] [address] USAHemoglobin mass conc (Bld)15.1 g/iRLdlmty66.0-17.0 Corey HospitalComment on above:Order Comment: Comment send tubes to 210Performed By: #### CBC #### [facility] [address] [place] [address] USALymphocytes #/vol (Bld)0.7 10*3/uLLow1.00-4.8Corey HospitalComment on above:Order Comment: Comment send tubes to 210 Performed By: #### CBC #### [place] [address] USALymphocytes/100 WBC (Bld)11.9 %Normal.Corey HospitalComment on above:Order Comment: Comment send tubes to 210Performed By: #### CBC #### [facility] [address] [place] [address] Entitic mass (RBC)33.9 g/iCZpukan37.5-35.6FUniversity Hospitals Lake West Medical CenterComment on above:Order Comment: Comment send tubes to 210 Performed By: #### CBC #### [address] Entitic mass (RBC)28.8 yjKrlbmf75.5-35.2FUniversity Hospitals Lake West Medical CenterComment on above:Order Comment: Comment send tubes to 210 Performed By: #### CBC #### [address] Entitic volume (RBC)85.0 bPZsykav77.5-101Corey HospitalComment on above:Order Comment: Comment send tubes to 210 Performed By: #### CBC #### [facility] [address] [place] [address] USAMonocytes #/vol (Bld)0.7 10*3/uLNormal0.0-0.8Corey HospitalComment on above:Order Comment: Comment send tubes to 210 Performed By: #### CBC #### [facility] [address] [place] [address] USAMonocytes/100 WBC (Bld)11.8 %Normal.Corey HospitalComment on above:Order Comment: Comment send tubes to 210Performed By: #### CBC #### [facility] [address] [place] [address] USANeutrophils #/vol (Bld)3.9 10*3/uLNormal1.8-7.7FUniversity Hospitals Lake West Medical CenterComment on above:Order Comment: Comment send tubes to 210 Performed By: #### CBC #### [facility] [address] [place] [address] USANeutrophils/100 WBC (Bld)69.6 %Normal.Corey HospitalComment on above:Order Comment: Comment send tubes to 210Performed By: #### CBC #### [place] [address] USANucleated RBC/100 WBC Ratio (Bld)0.0 %Normal0-0.5FUniversity Hospitals Lake West Medical CenterComapex medical center on above:Order Comment: Comment send tubes to 210Performed By: #### CBC #### [place] [address] USAPlatelet mean volume Entitic volume (Bld)7.4 fLNormal 6.6-10.1FUniversity Hospitals Lake West Medical CenterComapex medical center on above:Order Comment: Comment send tubes to 210Performed By: #### CBC #### [facility] [address] [place] [address] USAPlatelets #/vol (Bld)237 10*3/pIMxshyq318-878KzhrnboinCorey HospitalComapex medical center on above:Order Comment: Comment send tubes to 210 Performed By: #### CBC #### [facility] [address] [place] [address] USARBC #/vol (Bld)5.24 10*6/uLNormal3.90-5.60Corey HospitalComapex medical center on above:Order Comment: Comment send tubes to 210 Performed By: #### CBC #### [facility] [address] [id number] USAWBC #/vol (Bld)5.6 10*3/Gamal4.1-10.5FUniversity Hospitals Lake West Medical CenterComment on above:Order Comment: Comment send tubes to 210 Performed By: #### CBC #### [facility] [address] [place] [address] USALon 05-28-2018 Specimen: [id number] Received: 05/28/18 Status: CAIO Scott Num: [id number] Spec Type: Surgical Subm Dr: Jim Jules Jr, DO Tissues: A Colon - Polyp (SIGMOID POLYP) Procedures: PRAVEEN Stain/2, Gross/Micro L4 Patient Age/Sex Location Account Attending Physician Nitza Ibanez 58/M [id number] Jim Jules Jr, DO SPEC NUM: RECD: 05/28/18 STATUS: CAIO ZACKARY NUM: [id number] MARITO: 05/28/18 [facility] [address]: Jim Jules Jr, DO ENTERED: 05/28/18 [facility] DR: SPEC TYPE: Surgical DEPT: S ORDERED: [...] microscopic findings support the above pathologic diagnosis. [address] A. - - SIGMOID POLYP Specimen: Received: 05/28/18 Status: CAIO Scott Num: [id number] Spec Type: Surgical Subm Dr: Jim Jules Jr, DO Tissues: A Colon - Polyp (SIGMOID POLYP) Procedures: HE Stain/2, Gross/Micro L4 Patient: Nitza Ibanez [id number] (Continued) Signed (signature on file) Leslye Gonzalez MD 05/31/18 1553 [facility] Timeon 05-28-2018 aPTT Coag time (Bld)40.4 sHigh23.0-35.0Corey HospitalComment on above:Order Comment: Comment send tubes to 210Result Comment: PERFORMED BY: [place] [address] PATHOLOGIST FILL MANAGER LESLYE GONZALEZ M.D.Performed By: #### PT, PTT #### [place] [address] USAProthrombin Time INRon 72-44-9214YMS Coag RelTime (PPP)1.4 {INR}[facility] CincinnatiComment on above:Order Comment: Comment send tubes to 210Result Comment: INR Therapeutic Range A) Pre- and [...] patients with mechanical heart valves: 3 - 4.5Performed By: #### PT, PTT #### [facility] [address] [place] [address] USAProthrombin time (PT) Coag time (PPP)16.4 sHigh9.0-12.9 Corey HospitalComment on above:Order Comment: Comment send tubes to 210Performed By: #### PT, PTT #### [facility] [address] [place] [address] [facility] Vital Signs Date TimeVital SignValuePerforming LikvclhkbPsycrgnz49-77-0291 15:06-0400Body .8 cmNehemiah Siddiqui MD Work Phone: [phone]09-23-2025 15:06-0400 Body mass index (BMI) [Ratio]21.5 kg/i2DufxocfNehemiah Siddiqui MD Work Phone: [phone]09-23-2025 15:06-0400 Body .03 kgNehemiah Siddiqui MD Work Phone: [phone]09-23-2025 15:06-0400 Diastolic blood wajaqvpp01 mm[Hg]Nehemiah Siddiqui MD Work Phone: [phone] [place], [place] 1053309-23-2025 15:06-0400 Systolic blood uefesszz198 mm[Hg]Nehemiah Siddiqui MD Work Phone: [phone] [place] [address] Encounters Encounter DateEncounter TypeCare ProviderFacilityStart: 12-13-2024 End: 06-58-3320cdwayooexcMKMG [facility] Institutetart: 12-01-2024 End: 50-32-4877lvthgsbpjjYoyvrlv HoyFacility:[facility] Hospitaltart: 12-01-2024 End: 54-63-4540Zupobut encounter procedureMichael R NILL [phone]-RtwtlHolmes County [facility] [place] Start: 11-08-2024 End: 35-55-5208mgnxqognnuJsrowai M Hoy MD Work Phone: [facility] Work Phone: Start: 11-08-2024 End: 78-25-4299Lerqlld encounter procedureNicole Mary Grace Fu DO-FPG Neurology [address] Work Phone: Start: 33-81-5532khpuzlfcruERRAThe [facility]vue Hospitaltart: 84-87-0908xeqzmgathsCMHAH GRUBBUniKettering Health Behavioral Medical Centertart: 07-26-2024 End: 92-97-8003wntpuvpapsIDLLThe [facility] Hospitaltart: 67-10-1693lorgjkbirfMQYWThe [facility] Hospitaltart: 40-13-5809prdrrhwivtPTTAOCJ DONNELLWhite Hospitaltart: 03-01-6111bznolpclniJIKRTriHealth McCullough-Hyde Memorial Hospitaltart: 82-99-4819zoivcdydhvDIDZThe [facility] Hospitaltart: 03-16-2024 End: 11-91-0241hmbhzytezuGNRN [facility] Hospitaltart: 31-36-2564xrpsfyylupOidaray HoyFacility: BellevueStart: 54-47-3562txybboamei MATT [facility] Institutetart: 11-82-1721Tkmslyhrsh and management of inpatientPATriHealth McCullough-Hyde Memorial Hospitaltart: 39-80-4275eleddqucstSZTUThe [facility] Hospitaltart: 02-04-2024 End: 64-05-0496Utxpofwphk and management of inpatientThe [facility]vue Hospitaltart: 01-26-2024 End: 32-31-0608izalgfiigyLOCMTriHealth McCullough-Hyde Memorial Hospitaltart: 00-09-1758eyiiwcyuquNCPPThe [facility] Hospitaltart: 12-29-2023 End: 23-35-3344dmsnqwlcuqCHCN [facility] Institutetart: 21-87-9859byklgewvvwUZMO [facility] Institutetart: 10-21-2023 End: 26-14-9527Morgrd flowsheetNicole Nickie DO Work Phone: [facility] [address] STATE ROUTEStart: 10-21-2023 End: 19-02-1540Cjxome flowsheetNicole Nickie DO Work Phone: noMS [address] STATE ROUTEStart: 10-21-2023 End: 05-61-9430jttangkypgFMBQVN DANNERNot AvailableStart: 10-21-2023 End: 14-77-0817Ldkmzq consultation new/estab patient 60 minNicole Nickie DO Work Phone: noms [address] STATE ROUTEComment on above:Primary insomnia (Primary Dx); ANNETTE (obstructive sleep apnea); Hypoxia; Hypersomnia; Inadequate sleep hygiene; Snoring; Atrial fibrillation, unspecified type (CMS/HCC)Start: 27-86-8188RojlejPvxy K Chung MD Work Phone: CardiologyComment on above:Refill RequestStart: 96-23-7174Hmopzpksi for general adult medical examination without abnormal findingsDR NEHEMIAHRODRÍGUEZ Kentcandida [facility] Centertart: 12-14-2021 End: 83-60-0096dbxigdjxzfHO NEHEMIAH HOYFacility:E1Fnqrw: 12-14-2021 End: 24-29-2181Mpraeucqb for general adult medical examination without abnormal findingsDR NEHEMIAH SIDDIQUIFacility:Y7Qtist: 17-23-5695OxeydzTcmh K Chung MD Work Phone: CardiologyComment on above:Refill RequestStart: 39-01-5798lwchtuagppTA NEHEMIAH HOYFacility:T4Qcmbq: 06-26-2020 End: 71-97-0471Wupxiatrg encounterNo Pcp (Historical)Referring PhysicianComment on above:External Referrals/resources Procedures DateProcedureProcedure DetailPerforming ClinicianStart: 44-45-3295Mqcdqqu of cardiac ablation for atrial fibrillationMichael NILL Start: 72-30-4307Otulwjhyrztt of insertable loop recorderMichael NILL Start: 45-47-0269NFR screeningDR NEHEMIAH MCDOWELLomment on above:Performed By: #### PSASC #### [facility] [address] [place] [address] Dr. Pérez MgStart: 22-87-5504SmuqwxslmetAkmiuey NILL Comment on above:tubular adenomaStart: 86-73-6485Wcmfrr arch structure (body structure)Kevin NILL Comment on above:reconstructionStart: 02-17-2000 Replacement of mitral valveMichael NILL Cardiac catheterizationMichael NILL CholecystectomyMichael NILL Varicocele (disorder)Kevin NILL Comment on above:left Plan of Treatment DateCare ActivityDetailAuthorStart: 11-08-2024 End: 46-68-1451Xzmazaz encounter taiabyfhm00/23/2025 3:00 PM EDT Office Visit [facility] [address] [place] [phone] Macarena Fu, 543[facility] [address] [place] [address] [facility] ROUTEStart: 10-21-2023 End: 41-68-4984Aqkbh oximetry, overnightPulse oximetry, overnight Respiratory Care Routine Primary insomnia Expected: 10/21/2023 (Approximate), Expires: 10/20/2024[facility] Work Phone: comment on above:Expected: 10/21/2023 (Approximate), Expires: 10/20/2024Start: 59-37-4982Qsoxblbur vaccinationInfluenza Vaccine (#1) [facility] HealthcareStart: 78-60-1239Omydgubem vaccinationInfluenza Vaccine (#1) [facility]: 92-22-8764Veiagdjlxj AssessmentDepression Assessment [facility]tart: 72-55-1909Lwwctgvuv vaccinationINFLUENZA (#1)[facility]tart: 28-63-2686CXFJL-19 VACCINE (2 - Booster for Rowdy series)COVID-19 VACCINE (2 - Booster for Rowdy series)[facility]tart: 2014 PROSTATE CANCER SCREENING DISCUSSIONPROSTATE CANCER SCREENING DISCUSSION [facility]: 87-95-3961VEBEEXID VACCINE (1 of 2)SHINGRIX VACCINE (1 of 2)[facility] Hospitaltart: 57-96-8401YGCISBAZU (FIT-DNA)COLOGUARD (FIT-DNA) [facility]tart: 94-84-8188DwcolhthjfdCOXPMBDEFIOCmnwyyhsi ClinicStart: 15-19-3888DLFRKMZZMR CANCER SCREENINGCOLORECTAL CANCER SCREENINGAvita Health System Bucyrus Hospital Start: 54-07-2201TE COLONOGRAPHYCT COLONOGRAPHYMiami Valley Hospitaltart: 2004 DIABETES SCREENDIABETES SCREENMiami Valley Hospitaltart: 44-96-3530Vcunhpjw ScreeningDiabetes ScreeningMiami Valley Hospitaltart: 43-99-6215ZJRSO OCCULT BLOOD FECAL OCCULT BLOODMiami Valley Hospitaltart: 79-75-6854KESSSKBJZVZFNEVHSOTVPZHKAL [facility]tart: 52-15-7171Wsmqs 1996 panel - Serum or PlasmaLipid ScreeningMiami Valley Hospitaltart: 25-41-6393PNWUB SCREENLIPID SCREENMiami Valley Hospitaltart: 71-37-8242Wnnui microalbumin profileMiami Valley Hospitaltart: 65-72-0616BHXJHC PCP TEAM CHRONIC DISEASE VISITANNUAL PCP TEAM CHRONIC DISEASE VISITMiami Valley Hospitaltart: 45-61-2057HF CONTROLLED (<130/80)BP CONTROLLED (<130/80)[facility] Hospitaltart: 91-05-7262XAJGLWQJH C SCREENINGHEPATITIS C SCREENINGMi[facility] Valley Hospitaltart: 68-69-8395XGJ SCREENINGHIV SCREENINGMiami Valley Hospitaltart: 02-65-0542Dxbxn depression screening assessmentDEPRESSION SCREENING [facility] Hospitalrt: 34-71-3232Xkrcbdukr for malignant neoplasm of colonNOMS Healthcare Immunizations Immunization DateImmunizationNotesCare FwlvguixTistlquk00-04-4891XBQQ-PmZ-4 (COVID-19) mRNA-1273 vaccineMichael NILL [phone]-ZoxdvHolmes County [facility] [place] 43-06-4955DTFR-CoV-2 (COVID-19) Ad26 vaccine, recombinantMichael NILL [phone]-JmhwpHolmes County [facility] [place] 12-45-1123ysdujlsvx virus vaccine, unspecified formulationShaq Luna MD Work Phone: [facility] Payers DatePayer CategoryPayerPolicy [id number] [id number] Health Insurance [id number] [id number] 43-16-3561KisaqveOEVFTXISQSHRINERS HOSPITALS FOR CHILDRENO rxgmfnn3535 2013- Present GVIgmtiimb3972 1.2.840.305073.1.13.159.2.7.3.394932.13790-36-4738Acittpt [id number] 2.840.1.172345.3.57[id number] 2.840.1.906123.3.57[id number] 2.16.840.1.222214.3.579.2.6[id number] 2.840.1.947164.3.57[id number] 2.16.840.1.620182.3.579.2.24465-92-9622Dquv-[id number] [id number] Social History DateTypeDetailFacilityTobacco smoking status NHISUnknown if ever smokedMiami Valley Hospitaltart: 50-07-9043Ctb Assigned At BirthNot on [facility] Hospitaltart: 07-26-2020 End: 17-66-0155Wbomlbc smoking status NHISNever smoked tobaccoAvita Health System Bucyrus Hospital Work Phone: start: 53-82-1818Rnrpxwz use and exposureSmokeless tobacco non-userAvita Health System Bucyrus Hospital Work Phone: start: 16-85-4336Mawuoyd intakeLifetime non-drinker (finding)[facility] Hospitaltart: 65-97-0743Foytfcm SDOH Alcohol Frequency1 [facility]tart: 07-26-2020 End: 74-69-9526Sibppgb of Social functionMiami Valley Hospitaltart: 07-26-2020 End: 20-06-4777Troyjgu use [facility] HospitalNational Score (1- 100), lower number is lower riskNot on [facility] Norstony brook university hospitalkTobacco smoking status NHISTobacco smoking consumption unknown [facility] HealthcareStart: 88-35-0300SjoRdbi (finding)[facility] Hospitaltart: 71-59-1667Ymu Assigned At [facility] [place] Clinical Notes 06-26-2020 to 12-13-2024 Note Date & PwfgUqihIicaeoiq74-28-8050 NoteUT Electrophysiology Consult Note Reason for visit: AF, MVRx2 (rheumatic disease hx?), hx AVR 12/13/2024 Loop data revealed has not revealed any further episodes of sinus pause. No further episodes of A-fib 07/26/2024 Patient here for 2 mo follow up PAF s/p loop recorder in place, and hx of valve replacement. He was started on amiodarone at last apt in May 2024 by Opal Meade CNP as EKG done at that time showed evidence of long RP tachycardia. Loop data reviewed by me does not show any episodes of A-fib since ablation. 01/26/24 Pt here for consent. Patient here [...] At one point was being seeing by [facility] EP for PPM but no PPM [...] 125, triglycerides 162, hemoglobin A1c 5.4 Per [facility] cardiology 09/2020 HISTORY OF PRESENT ILLNESS: [...] AND POLYPECTOMY MITRAL VALVE REPLACEMENT SH: Social Drivers of Health Tobacco Use: Low Risk (12/13/2024) Patient History Smoking Tobacco Use: Never Smokeless [...] Year: Not on file Transportation Needs: No Transportation Needs (02/04/2024) Transportation Lack of T (more content not included)...[facility] NoteGeneral Surgery Office/Clinic Note Chief Complaint consultation for colonoscopy HPI Staff 64 year old male presents on consultation from Dr. Siddiqui for surveillance colonoscopy and GERD. Last colonoscopy completed 05/2018 with sigmoid tubular adenoma. Denies abdominal or rectal pain. No rectal bleeding or change in bowel habits. Denies nausea, vomiting or bowel changes. Verbalized he experiences acid reflux, heartburn and indigestion for several hours approximately once every 6 months. NoPPI use. Patient on Coumadin for a.fib. History of Present Illness 64 yo male with h/o htn, mechanical aortic and mitral valves, on chronic warfarin, atrial fibrillation, Marfan syndrome, hypothyroidism, ANNETTE, referred for surveillance colonoscopy; last colonoscopy 2018 with removal of small tubular adenoma; patient denies change in bms or blood in stools, no abd co mplaints; on warfarin, no asa or NSAID use; no tobacco use; abd operations significant for cholecystectomy; no fmhx of GI malignancy or IBD; patient requires Lovenox bridging for procedures. Review of Systems PHQ Score Initial Depression Screen Score: 0 SCORE ROS - Provider Constitutional: no fever, no sweats, no weight loss. Eyes: no glasses, no blurred vision, no visual loss. ENMT: no dentures, no hoarseness, no swallowing difficulties, no hearing loss, no ear infection(s),no nose bleeds. Cardiovascular: normal blood pressure, no chest pain, regular heartbeat, no heart murmur. Respiratory: no shortness of breath, no cough, no asthma, no wheezing. Gastrointestinal: no nausea, no vomiting, no diarrhea, no constipation, no blood in stool, no change in bowel habits, no abdominal pain, no hepatitis. Genitourinary: no kidney [...] or noncontributory. Physical Exam Vitals & Measurements HR: 103(Peripheral) RR: 16 BP: 153/68 HT: 70 in HT: 177.8 cm WT: 153.662 lb WT: 69.7 kg BMI: 22.05 HEENT: normal conjunctiva, sclera clear, no scleral icterus, EOM intact, PERRLA, oral mucosa moist without lesions. Neck: trachea midline, no mass, symmetric, no thyromegaly or nodules, no adenopathy Respiratory: lungs CTA, respirations non labored. Cardiovascular: regular rate and rhythm, no murmur, no pedal edema or varicosities. mechanical heart sounds Gastrointestinal: soft, non distended, no tenderness, no masses, no palpable hernias, diastasis recti no, no hepatosplenomegaly; normal bs Musculoskeletal: normal gait, digits and nails without infection, nodes, cyanosis, clubbing. Skin: no rashes, no lesions, no ulcers, no subcutaneous nodules, induration. Psychiatric/Neuro: oriented to time, place, person, judgement normal, affect appropriate for age, insight intact, no focal deficits. Tests: review of old records completed , Discussed surgical options, risks, and possible complications with patient. Assessment/Plan 1. Personal history of adenomatous and serrated colon polyps (Z86.0101: Personal history of adenomatous and serrated colon polyps) plan colonoscopy under anesthesia; informed consent obtained. hold warfarin 4 days prior to procedure; bridge with Lovenox; hold Lovenox the morning of the procedure. Follow-up No qualifying data available Problem List/Past Medical History Ongoing Atrial enlargement, bilateral Cardiomegaly Chronic anticoagulation GERD (gastroesophageal reflux disease) HTN (hypertension) Hypothyroidism Lung nodule LVH (left ventricular hypertrophy) Marfan syndrome Mitral valve stenosis, rheumatic ANNETTE (obstructive sleep apnea) PAF (paroxysmal atrial fibrillation) Personal history of adenomatous and serrated colon polyps Peyronie disease Pulmonary HTN Thoracic aortic aneurysm without rupture Historical Cholelithiasis Epigastric pain Procedure/Surgical History History of cardiac ablation for atrial fibrillation (01/2024), Implantation of insertable loop recorder (06/2023), Colonoscopy (05/28/2018), Aortic arch (2000), AVR - Aortic valve replacement (2000),MVR - Mitral valve replacement (2000), Cardiac catheterisation, Cholecystectomy, Varicocele. Medications Coumadin 5 mg Tab, 7.5 mg= 1.5 tab(s), Oral, Daily ferrous sulfate 325 mg Tab, 325 mg= 1 tab(s), Oral, Daily irbesartan 150 mg Tab, 150 mg= 1 tab(s), Oral, Daily lamotrigine 100 mg oral tablet, 100 mg= 1 tab(s), Oral, Daily levothyroxine 75 mcg (0.075 mg) Tab, 75 mcg= 1 tab(s), Oral, Daily Pravachol 40 mg Tab, 40 mg= 1 tab(s), Oral, Daily (more content not included)... [facility] HospitalComment on above:Result Comment: Electronically Signed By: JOAN WOOD, Kevin Langston.mai\Date and Time Signed: 12/01/24 19:16 EDT 07-26-2024 NoteUT Electrophysiology Consult Note Reason for visit: AF, [...] At one point was being seeing by [facility] EP for PPM but no PPM [...] 125, triglycerides 162, hemoglobin A1c 5.4 Per [facility] cardiology 09/2020 HISTORY OF PRESENT ILLNESS: [...] Transportation Needs: No T (more content not included)...[facility]04-10-2025 NotePatient here for 3 month follow up appointment. Patient has loop recorder in place. Patient states yesterday his heart rate was in the 70. Patient states he felt an erratic beat and his heart rate went up into the 100. Patient states it has just stayed beating fast all day today. Denies leg swelling, and SOB. Review of Systems Cardiovascular: Positive for palpitations.[facility] 05-26-2024 NoteCardiovascular Medicine [facility] SUBJECTIVE Chief Complaint Patient presents with [...] results found for: EX (more content not included)...[facility]01-29-2025 NotePatient here for follow up afib ablation performed on 02/04/[address] Quevedo. Has a little chest soreness s/p ablation. Denies SOB, lightheadedness/syncope, and bleeding on warfarin. Review of Systems Cardiovascular: Positive for chest pain ( soreness ) and palpitations ( once in awhile ). All other systems reviewed and are negative.[facility] 03-16-2024 NoteSUBJECTIVE Nitza Ibanez is a 64 y.o. year [...] isolation and comprehensive EP study with Dr. Quevedo, and was admitted post ablation procedure for [...] Labs Admission on 02/03 (more content not included)...[facility]12-19-2024 NoteTreatment Plan: Patient was seen at bedside by me. He appeared to be in no acute distress, resting in bed. He is hemodynamically stable. Right groin access site appeared to be clean, no oozing, bleeding, or bruising noted. Mild tenderness to deep palpation. Will keep gauze and dressing on access site over night. Signed, Kathryn Fleming MD PGY-4 Talent Acquisition Director [facility] Pager: [phone]12-19-2024 Note02/04/241814 Provider Notification Reason for Communication Change in [...] pressure, and new bleeding noted on dressing. toy parts former supervisorCARMEN reyes at bedside, held pressure for 10-15 minutes. While pressure was being applied, blood noted to be oozing from cath site. After 15 minutes, pressure dressing applied. Cardiology paged at this time for an update- awaiting call back.[facility]12-19-2024 NoteATRIAL FIBRILLATION ABLATION PROCEDURE NOTE DATE OF PROCEDURE: 02/04/2024 PERFORMING PHYSICIAN: Dr. Matt Quevedo CONSENT: Patient NAME OF THE PROCEDURE: Pulmonary [...] At one point was being seeing by [facility] EP for PPM but no PPM [...] Coumadin ridge. Esophagus was mapped using the [employer] 3[employer] mapping software and noted to be [...] were isolated. I ens (more content not included)...[facility]12-19-2024 NotePatient: Nitza Ibanez Procedure Summary Date: 02/04/24 Room / Location: [facility] BUSINESS UNIT CONTROLLER 1 EP / [facility] HV VASCULAR LAB (Cath) Anesthesia Start: 08 Anesthesia Stop: 121 Procedure: Ablation a-fib paroxysmal Diagnosis: PAF (paroxysmal atrial fibrillation) (CMS/HCC) (PAF (paroxysmal atrial fibrillation) (CMS/HCC) [I48.0]) Providers: Matt Quevedo MD Responsible Provider: Nitza Huntley MD Anesthesia [...] were no known notable events for this encounter.[facility]12-19-2024 NoteAirway Date/Time: 02/04/2024 8:59 AM Urgency: elective Airway not difficult General Information and Staff Patient location during procedure: OR Anesthesiologist: Nitza Huntley MD Resident/DOLLYMAN/CAA: Liliya Olmedo MD Performed: resident/DOLLYMAN/CAA Indications and Patient Condition Indications for airway [...] approach: 1 Number of other approaches attempted: 0[facility] 02-04-2024 NotePatient: Nitza Ibanez Procedure Information Date/Time: 02/04/24 0800 Procedure: Ablation a-fib paroxysmal - PC APPROVE Location: [facility] BUSINESS UNIT CONTROLLER 1 EP / [facility] HVC VASCULAR LAB (Cath) Providers: Matt Quevedo MD Relevant Problems Anesthesia (+) ANNETTE (obstructive [...] Value Ventricular Rate 67 Atrial Rate 67 MA Interval 134 QRS DURATION 118 QT Interval 422 QTC CALCULATION(BAZETT) 445 P Silva 59 R-Silva -27 T Wave Silva -5 Impression Normal sinus rhythm Left ventricular hypertrophy with QRS widening ( R in aVL , Sokolow-Payne , Sandwich product ) Abnormal ECG No previous ECGs [...] products. Plan discussed with attending. Additional Equipment RequestsCity Hospital12-10-2024 Note [place] Electrophysiology Consult Note Reason for visit: AF, [...] At one point was being seeing by [facility] EP for PPM but no PPM [...] 125, triglycerides 162, hemoglobin A1c 5.4 Per [facility] cardiology 09/2020 HISTORY OF PRESENT ILLNESS: [...] Resource Strain: Low Risk (09/26/2019) Received from [employer] [employer] Overall Financial Resource Strain (CARDIA) Difficulty of Paying Living Expenses: Not hard at all Food Insecurity: Not on file Transportation Needs: No Transportation Needs (09/26/2019) Received from [employer], [employer] PRAPARE - Transportation Lack of Transportation (Medical): No Lack of Transportation (Non-Medical): No Physical Activity: Sufficiently Active (09/26/2019) Received from [employer], [employer] Exercise Vital Sign Days of Exercise per Week: 2 days Minutes of Exercise per Session: 150+ min Stress: No Stress Concern Present (09/26/2019) Received from [employer], [employer] [place] [employer] - Occupational Stress Questionnaire Feeling of Stress : Only (more content not included)...[facility]11-12-2024 NoteUT Electrophysiology Consult Note Reason for visit: AF, [...] At one point was being seeing by [facility] EP for PPM but no PPM [...] 125, triglycerides 162, hemoglobin A1c 5.4 Per [facility] cardiology 09/2020 HISTORY OF PRESENT ILLNESS: [...] on file Intimate Partner Violence: Unknown (04/10/2023) [place] Safety & Environment Fear of Current or [...] times daily. metoprolol succinate (more content not included)...[facility]09-04-2024 History of Present illness Narrative* Macarena Fu, DO - 10/21/2023 1:30 PM EDT Images from the original note were not included. Chief Complaint Patient presents with Sleep Apnea Subjective Nitza Kevin Ibanez, 63 y.o., male being seen in Sleep Consultaiton at the request of Ismael Croft NP. Dr. Siddiqui is his PCP. HPI He had A-fib [...] once in a while he will wake upat 2am and he has a hard time [...] at work. 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 Past Medical History: Diagnosis Date Backache Disturbance [...] of sleep. He was initially compliant with hisCPAP machine and using it 93 percent of the time with 70% of the time greater than 4 hours with an average nightly usage of 4 hours and 35 minutes with a residual AHI of 4.7 Unfortunately that has fallen off a little bit however he did meet compliance data with best out of 30. He is having somewhatof a leak so he was shown some different mask he could get her it could try to use a chin strap. Sin ce he had the hypoxia we will go ahead and do a nocturnal pulse ox to be sure that his oxygen is also controlled as he only had the home sleep study with auto PAP started. He has an Rowley Sleepiness scale of 8. More aggressive with [...] sure that his oxygenation is controlled with thecurrent pressure He can try some different mask [...] was counseled on the risks of stroke, [place], and sudden with ANNETTE, along with the [...] to clinic: 1 year documented in this encounterSaint [facility] [id number] Miscellaneous Notes* Telephone Encounter - Mary Fowler - 11/05/2022 9:55 AM EDT Call from patient requesting refill. Requested Prescriptions Pending Prescriptions Disp Refills losartan (COZAAR) 50 mg tablet [Pharmacy Med Name: LOSARTAN POTASSIUM 50 MG TAB] 180 tablet 3 Sig: take one tablet by mouth twice a day Patient last seen 09/26/20 Mary Fowler documented [facility] encounter[facility]22 Miscellaneous Notes* Telephone Encounter - Ha Silveira - 09/25/2021 7:16 AM EDT Electronic request for refill. Requested Prescriptions Pending Prescriptions Disp Refills losartan (COZAAR) 50 mg tablet [Pharmacy Med Name: LOSARTAN POTASSIUM 50 MG TAB] 180 tablet 3 Sig: TAKE 1 TABLET BY MOUTH TWICE A DAY Last office visit in was 07/26/2020 Ha Silveira documented in this encounterAvita Health System [facility]08-11-2021 NoteHNO ID: [id number] Author: Nimo Dean MD Service: ? Author Type: Physician Type: Progress Notes Filed: 10/24/2020 11:55 AM Note Text: [facility] [place] [facility] Department of Cardiovascular Medicine SECTION OF CARDIOVASCULAR IMAGING OUTPATIENT VISIT DATE September 26, 2020 OUTPATIENT VISIT TYPE NEW PRIMARY CARE PHYSICIAN: Nehemiah Siddiqui MD [address] [place] [address] REFERRING PHYSICIAN: Shaq Luna [address] [facility] [address] CHIEF COMPLAINT: Valvular heart disease HISTORY OF [...] mouth daily as directed. [facility]. levothyroxine (SYNTHROID) 25 mcg [...] Apnea GASTROINTESTINAL: Negative for: (more content not included)...[facility]06-10-2021 NoteHNO ID: [id number] Author: Joycelyn Weir Service: ? Author Type: ? Type: Progress Notes Filed: 07/26/2020 2:25 PM Note Text: EVENT MONITOR DISPOSABLE PATCH INSTRUCTIONS Patient Name: Nitza Ibanez [facility] Number: [id number] Skin prepped and cleansed with alcohol Patch secured to prepped area Monitor Activated Serial #: [id number] Patient Instructed: 1.) Prescribed order timeframe 2.) Bathing guidelines 3.) Usage of event button and diary documentation 4.) Return of monitor at the end of prescribed order 5.) Call with problems [phone] or [phone]. [phone] Patient expresses a good understanding of instructions [facility] NoteEducation (CARDMN) NITZA IBANEZ ([id number]) 1960 M Date Time Provider Department 07/26/20 2:00 PM ARRHYTHMIA MONITORING LAB CARDMN Reason for Visit: ZIO PATCH [Other] Progress Notes: Joycelyn Weir 07/26/2020 2:25 PM Signed EVENT MONITOR DISPOSABLE PATCH INSTRUCTIONS Patient Name: Nitza Ibanez Clinic Number: [id number] Skin prepped and cleansed with alcohol Patch secured to prepped area Monitor Activated Serial #: [id number] Patient Instructed: 1.) Prescribed order timeframe 2.) Bathing guidelines 3.) Usage of event button and diary documentation 4.) Return of monitor at the end of prescribed order 5.) Call with problems [phone] or [phone] ext. [phone] Patient expresses a good understanding of instructions [...] * Encounter Status:Closed by JOYCELYN GRAVES on 07/26/20[facility]06-10-2021 NoteHNO ID: [id number] Author: Shaq Luna MD Service: ? Author Type: Physician Type: Progress Notes Filed: 07/26/2020 1:53 PM Note Text: REFERRING/OTHER PHYSICIANS: Nehemiah Siddiqui MD (PCP); Abner Young MD (CV) CHIEF [...] deaths. 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 . Daughter A AND W. 2 grandchildren. Lives in [place], [place]. Habits: Tobacco: none. Alcohol: never. Caffeine: [...] Excessive sweating-No, Frequent urination (more content not included)...[facility]06-10-2021 NoteHNO ID: [id number] Author: Shaq Luna MD Service: ? Author [...] with aortic valve with sinus bradycardia 54 bpm.[facility] 06-26-2020 Miscellaneous Notes* Telephone Encounter - Aj Saez - 06/26/2020 12:16 PM EDT Patient: Nitza Ibanez Date of : 1960 Patient phone number: [phone] Referring Provider for the encounter: Nehemiah Siddiqui Requesting Provider: Someone that specializes in Valve Disease Reason for requesting visit (RFV/signs and symptoms/diagnosis): Bradycardia, tachycardia Person calling: self Return call to: self Medical Records/Insurance Card scanned into Epic: Yes Comments: Valve Replacement X2 documented in this encounterAvita [facility] HospitalEvaluation + Plan note No data available for this section [facility] [place] Evaluation note* Diagnosis Primary insomnia- Primary Persistent disorder of initiating or maintaining sleep ANNETTE (obstructive sleep apnea) Obstructive sleep apnea (adult) (pediatric) Hypoxia Hypoxemia Hypersomnia Hypersomnia, unspecified Inadequate sleep hygiene Other specific disorder of sleep of nonorganic origin Snoring Other dyspnea and respiratory abnormality Atrial fibrillation, unspecified type (CMS/HCC) documented in this encounter [facility] HealthcareEvaluation noteNo assessment information availableOhiohealth Dublin Methodist Hospital Work Phone: Hospital Discharge instructions No data available for this section [facility] Progress note No data available for this section [facility] Reason for referral (narrative)No reason for referral information availableOhiohealth Dublin Methodist Hospital Work Phone: Summary Purpose Family History No Family History Records FoundNo Family History Records FoundNo Family History Records FoundNo Family History Records Found No data available for this section No Family History Records FoundNo Family History Records Found Advance Directives No Advanced Directives Records Found Advance Directive Response Recorded Date/ Time Advance Directives No May 28 6:20am Chief Complaint and Reason for Visit Chief Complaint Admit Date yearly follow up November 08, 2024 2:49pm Additional Source Comments (unrecognized sect ion and content) No Status Records FoundNo Status Records FoundNo Status Records FoundNo Status Records FoundNo Status Records FoundNo Status Records Found INFORMATION SOURCE (unrecogn ized section and content) DATE CREATED AUTHOR 07/08/2018 [facility] DATE CREATED AUTHOR AUTHOR'S ORGANIZ ATION 03/19/2021 [facility] DATE CREATED AUTHOR AUTHOR'S ORGANIZ ATION 04/02/2022 [facility] DATE CREATED AUTHOR AUTHOR'S ORGANIZ ATION 10/23/2023 [facility] DATE CREATED AUTHOR AUTHOR'S ORGANIZ ATION 12/03/2024 [facility] DATE CREATED AUTHOR AUTHOR'S ORGANIZ ATION 12/24/2024 [facility] Source Comments (unrecognize d section and content) In the event this informatio n is protected by the Federal Confidentiality of Alcohol and Drug Abuse Patient Records regulations: The Federal rules restrict any use of the information to criminally investigate or prosecute any alcohol or drug abuse patient.[facility] HospitalIn the event this information is protected by the Federal Confidentiality of Alcohol and Drug Abuse Patient Records regulations: The Federal rules restrict any use of the information to criminally investigate or prosecute any alcohol or drug abuse patient.[facility] HospitalIn the event this information is protected by the Federal Confidentiality of Alcohol and Drug Abuse Patient Records regulations: The Federal rules restrict any use of the information to criminally investigate or prosecute any alcohol or drug abuse patient.[facility] Reason for Visit (unrecogniz ed section and content) ReasonCommentsExternal Referrals/resourcesReasonCommentsRefill RequestReason CommentsSleep Apnea Care Teams (unrecognized sec tion and content) Team MemberRelationshipSpecialtyStart DateEnd Date Nehemiah Siddiqui MD [address] [place] [address] PCP - GeneralFamily Practice06/06/13 Abner Young [address] [facility] [address] [place] [address] ReferringCardiology07/26/20 Nmio Dean MD [address] [place] [address] Primary Staff PhysicianCardiology09/26/20Team MemberRelationshipSpecialtyStart DateEnd [facility] Nehemiah Siddiqui MD PCP - GeneralFamily Medicine06/06/13 Abner Young [address] [address] ReferringCardiology07/26/20 Nimo Dean MD [address] [place] [address] Primary Staff PhysicianCardiology09/26/20Team MemberRelationshipSpecialtyStart DateEnd Date Nehemiah Siddiqui MD [address] [place] [address] PCP - GeneralFamily Medicine05/15/23Team MemberRelationshipSpecialtyStart DateEnd [facility] Nehemiah Siddiqui MD [address] [place] [address] PCP - GeneralFamily Medicine05/15/23 Team Status: Active Member Role Status Saloni Siddiqui MD Primary Care Provider Active Team Status: Inactive Member Role Status Dates Nehemiah Siddiqui MD Primary Care Provider Active Start: November 08, 2024 End: November 08, 2024Dom Schultz ProviderActiveStart: November 08, 2024 End: November 08, 2024 Goals (unrecognized section and content) Goals may be documented in a n alternate section No data available for this section FOR RECORDS PERTAINING TO PATIENTS WHO [...] BE BASED ON THE PRIMARY CLINICAL RECORDS. [facility] [employer] [facility]. provides no warranty or guarantee of the accuracy or completeness of information in this document.
--- OUTSIDE RECORDS SUMMARY | 2024-12-28 15:38 | XMS_ITS | Encounter Summary ---
Author Organization [facility] Address [address] [place] [address] Care Team Providers Care Group Dynamics Instructor Name Role Phone Eric Jimenez MD Primary Care Provider Encounter Details DateTypeDepartmentCare Team (Latest Contact Info)Pdoolevolol00/04/2025Orders Only [facility] [place] [address] [place] [address] Cora Balderas MA Social History Tobacco UseTypesPacks/DayYears UsedDateSmoking Tobacco: NeverSmokeless Tobacco: NeverAlcohol UseStandard Drinks/WeekCommentsNot Currently0 (1 standard drink = 0.6 oz pure alcohol)[facility] UtilitiesAnswerDate RecordedIn the past 12 months [...] were you homeless or living in a assisted (including now)? No02/04/2024Hunger Vital SignAnswerDate RecordedWithin the past 12 months, you worried that your food would run out before you got the money to buymore.Never true02/04/2024an Out of Food in the Last YearNot on file02/04/2024Sex and Gender InformationValueDate RecordedSex Assigned at ClyccBdvz87/28/2024 9:09 AM ESTLegal CxpNtrh4711/07/2022 9:21 AM EDTGender AnkmdcbvZeaf41/28/2024 9:09 AM EST Sexual OrientationHeterosexual or Uwkfihze16/28/2024 9:09 AM ESTdocumented as of this encounter Functional Status * Are you deaf or do you have serious difficulty hearing?AnswerDate of WzwjtopyyeAyooesVt71/20/2024 2:56 PM Afua Marquis RN * Are you blind or do you have serious difficulty seeing, even when wearing glasses?AnswerDate of BflwyfjdaeQahsanSo60/20/2024 2:56 PM Afua Marquis RN * Do you have serious difficulty walking or climbing stairs?AnswerDate of OkagefxeraFouggdCx11/20/2024 2:56 PM Afua Marquis RN * Do you have serious difficulty dressing or bathing?AnswerDate of Assessment SwruudNj52/20/2024 2:56 PM Afua Marquis RN * Because of a physical, mental, or emotional condition, do you have serious difficulty doing errandsalone such as visiting the doctor?AnswerDate of EavrsbxzhpUzwdfgEd11/20/2024 2:56 PM Afua Marquis RN documented as of this encounter Mental Status * Because of a physical, mental, or emotional condition, do you have serious difficulty concentrating, remembering, or making decisions? (5 years old or older)AnswerEntry SrbgGufasvPz50/20/2024 2:56 PM Afua Marquis RN documented in this encounter Plan of Treatment Not on file documented as of this encounter Visit Diagnoses Not on filedocumented in this encounter Care Teams Team MemberRelationshipSpecialtyStart DateEnd Eric Jimenez MD [address] [place] [address] PCP - General04/15/23documented as of this encounter
--- OUTSIDE RECORDS SUMMARY | 2024-12-28 15:39 | XMS_ITS | Clinical Summary ---
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 Name Role Phone Eric Jimenez MD Primary Care Provider [phone] Abner Young DO Unavailable [phone] Nimo Dean MD Unavailable [phone] Allergies No known active allergies Medications MedicationSigDispense QuantityRefillsLast FilledStart DateEnd DateStatus metoprolol succinate ER (TOPROL XL) 100 mg Take 100 mg by mouth twice daily.06/28/2020ctive verapamil SR (CALAN SR, ISOPTIN SR) 180 mg CR tablet Take 180 mg by mouth twice daily.03/02/2020ctive pravastatin (PRAVACHOL) 40 mg tablet Take 40 mg by mouth once daily.06/15/2020ctive warfarin (COUMADIN) 5 mg tablet Take 5 mg by mouth daily as directed. As directed by [facility] coumad[facility]. 10/21/2018Active levothyroxine (SYNTHROID) 25 mcg tablet Take 25 mcg by mouth once daily.07/25/2020ctive CALCIUM ORAL Take 600 mg by mouth once daily. With vitamin DActive lamoTRIgine (LAMICTAL) 100 mg tablet Take 100 mg by mouth once daily.08/27/2020ctive amoxicillin (POLYMOX, AMOXIL) 500 mg capsule TAKE 4 CAPSULES BY MOUTH 1 HOUR PRIOR TO FDLRZITMJ22/17/2021ctive losartan (COZAAR) 50 mg tablet take one tablet by mouth twice a day 180 tablet ctive Active Problems ProblemNoted DateDiagnosed DateHistory of mitral valve yhdktaakpwr44/11/2021 Primary mtbhmsrgxavb46/11/2021History of aortic valve jfaerhbdpif99/11/2021 Atrial vqugjjhmpsbt13/27/2017Thoracic aortic aneurysm without xdlrtyh2410/18/2015 Social History Tobacco UseTypesPacks/DayYears UsedDateSmoking Tobacco: NeverSmokeless Tobacco: NeverAlcohol UseStandard Drinks/WeekCommentsNever0 (1 standard drink = 0.6 oz pure alcohol)Area Deprivation IndexAnswerDate RecordedNational Score (1-100), lower number is lower riskNot on file07/26/2020tate Score (1-10), lower number is lower riskNot on file07/26/2020ata from: https://www.neighborhoodatlas.[facility].edu/. Last address used for calculationNot on file07/26/2020ex and Gender InformationValueDate RecordedSex Assigned at BirthNot on fileLegal SzkBqvb5806/06/2013 9:56 AM EDTGender Identity Not on fileSexual OrientationNot on file Last Filed Vital Signs Vital SignReadingTime TakenCommentsBlood Zcbjtopd665/7208 12:55 PM EDT Ntong057009/26/2020 12:55 PM EDTTemperature--Respiratory Qgur247309/26/2020 12:55 PM EDTOxygen Gxgxogzmzu89%09/26/2020 12:55 PM EDTInhaled Oxygen Concentration-- Eglxgr55.4 kg (153 lb)09/26/2020 12:55 PM DVMPuzpvg908.8 cm (5' 10 )09/26/2020 12:55 PM EDTBody Mass Index21.9508 12:55 PM EDT Plan of Treatment Health MaintenanceDue DateLast DoneCommentsAnxiety Eibrxplja32/23/1978Depression Uukllvweb04/23/1978HIV Vbfhdotwq80/23/1978Hepatitis C Svwcxqren68/23/1978Lipid Kaddglutk81/23/1995CT Ffnempgvnqka67/23/2005Cologuard (FIT-DNA)2004 Fzenkcoslcp45/23/2005Colorectal Cancer Iddtjhxxn36/23/2005Fecal Occult Blood 2004Prostate Cancer Screening Gcydhghlgn78/23/8251Rrhqvimfpyzxj07/23/2005 Pneumococcal Vaccine: 50+ (1 of 1 - PCV)2009Shingrix Vaccine (1 of 2) 2009Diabetes Xkkcoekbx35, 09/27/2019, 09/26/2019Advance Directive Kdhbdpimdx35/23/2025Covid-19 Vaccine (2 - 2024- season)2024 04/23/2020Influenza Vaccine (#1)5102/26/2019, 03/19/2017, 12/05/2015 DTaP,Tdap,Td Vaccine (3 - Td or Tdap), 02/01/2010RSV Vaccine (1 - 1-dose 75+ series)2034 Insurance Care Teams Team MemberRelationshipSpecialtyStart DateEnd Eric Jimenez MD PCP - GeneralFamily Medicine06/06/13 Abner Young DO [address] [address] ReferringCardiology07/26/20 Nimo Dean MD [address] [place] [address] Primary Staff PhysicianCardiology09/26/20
--- OUTSIDE RECORDS SUMMARY | 2024-12-28 15:39 | XMS_ITS | Clinical Summary ---
Author Organization [facility] Address [address] [place] [address] Care Team Providers Care Welcome Center Agent Name Role Phone Eric Jimenez MD Primary Care Provider [phone] Allergies No known active allergies Medications MedicationSigDispense QuantityRefillsLast FilledStart DateEnd DateStatus pravastatin (Pravachol) 40 mg tablet Take 40 mg by mouth at bedtime.09/28/2019Active warfarin (Coumadin) 5 mg tablet Take 5-7.5 mg by mouth at bedtime.10/21/2018Active levothyroxine (Synthroid, Levoxyl) 25 mcg tablet Take 35.5 mcg by mouth before breakfast.09/10/2016Active lamoTRIgine (LaMICtal) 100 mg tablet Take 100 mg by mouth at bedtime.08/27/2020ctive losartan (Cozaar) 50 mg tablet Take 50 mg by mouth 2 times daily.Active metoprolol succinate XL (Toprol-XL) 100 mg 24 hr tablet Take 0.5 tablets by mouth two times daily. Do not crush or chew.Active omeprazole (PriLOSEC) [address] capsule Indications:Paroxysmal atrial fibrillation (CMS/HCC)Take 1 capsule (40 mg) by mouth before breakfast. Do not crush or chew. 30 capsule 02/05/2024ctive Additional Information Patient not taking.Reported on 12/13/2024 famotidine (Pepcid) 20 mg tablet Indications:Paroxysmal atrial fibrillation (CMS/HCC)Take 1 tablet (20 mg) by mouth two times daily. 60 tablet 02/05/2024ctive Additional Information Patient not taking.Reported on 12/13/2024 ferrous sulfate 325 (65 Fe) MG EC tablet Take 65 mg of iron by mouth with breakfast. Do not crush, chew, or split.Active amiodarone (Pacerone) 200 mg tablet Indications:Paroxysmal atrial fibrillation (CMS/HCC)Take 2 tablets (400 mg) by mouth two times daily for 10 days, THEN 1 tablet (200 mg) in the morning. 50 tablet tive Additional Information Patient not taking.Reported on 12/13/2024 irbesartan (Avapro) 150 mg tablet Take 150 mg by mouth in the morning.5Active verapamil SR (Calan-SR) 180 mg ER tablet Take 180 mg by mouth two times daily. 90mg am and 90mg pm10/25/2019Active Active Problems ProblemNoted DateDiagnosed DateAtrial enlargement, rshpiqekp34/28/2025 Posybpyckjtn35/28/3266Gzqupfywca78/28/2025hronic kzmnkivmghwwrfi31/28/2025 Chronic foot ulcer12/13/2024Dependence on other enabling machines and devices 12/13/2024Disorder of bone12/13/2024Gastro-esophageal reflux disease without hvwtjqnkcqe95/28/2025GERD (gastroesophageal reflux disease)12/13/2024Lung nodule 12/13/2024LVH (left ventricular hypertrophy)12/13/2024Marfan ypmuzfcz61/28/2025 Txukzpyqnsfcrr51/28/2025Personal history of adenomatous and serrated colon ewahww7012/13/2024Peyronie grjhgks0712/13/2024Pulmonary /28/2025 Paroxysmal atrial peksfspsyyle82/20/2024ersistent atrial fkftyxkdklxa23/20/2024 ANNETTE (obstructive sleep apnea)02/04/20240294Braiecnzlrldlt38/19/2024aroxysmal A-fib 02/04/2024Screening for colorectal rdtibk8101/26/2024AF (paroxysmal atrial fibrillation)12/29/2023resence of prosthetic heart valve Primary axpyjaqbaosz77Unstable qqcvad78 Overview (04/14/2023): Added automatically from request for surgery [id number] Chest paintrial krdohnueujzy77/27/2017Rheumatic mitral ehaxsvml02Thoracic aortic aneurysm without mofzoqg5710/18/2015 04/14/2023 Encounters DateTypeDepartmentCare YyyyNziulsxkvca61/04/2025Orders Only [facility] [address] [facility] [place] [address] Cora Balderas MA 12/13/2024 9:00 AM EDTOffice Visit [facility] [address] [facility] [place] [address] Matt Willis MD PAF (paroxysmal atrial fibrillation) (CMS/HCC) (Primary Dx)12/13/2024Orders Only [facility] [address] [facility] [place] [address] Yeimi Hernandez MA Abnormal EKG (Primary Dx); Paroxysmal atrial fibrillation (CMS/HCC)12/13/2024Orders Only [facility] [address] [facility] [place] [address] Cora Balderas MA 11/03/2024 12:20 PM EDTAncillary Procedure [facility] [address] [place] [address] Awareness of vrahfcoxsu91/18/2025Orders Only [facility] [address] [place] [address] Bernadette Dumont MD from Last 3 Months Immunizations ImmunizationAdministration DatesNext DueInfluenza, Ngtwmxvculf86/19/2016 Influenza, injectable, quadrivalent, preservative free12/28/2019Influenza, seasonal, injectable, preservative free, 6 moonths & older03/19/2017Tdap 04/22/2021,12/05/2015,02/01/2010 Family History Medical HistoryRelationNameCommentsCancerBrotherDiabetesBrotherCancerFather CancerMotherDiabetesSisterRelationNameStatusCommentsBrotherDeceasedFather DeceasedMotherDeceasedSisterAlive Social History Tobacco UseTypesPacks/DayYears UsedDateSmoking Tobacco: NeverSmokeless Tobacco: Never Tobacco Cessation:Counseling Given: Not Answered Alcohol UseStandard Drinks/WeekCommentsNot Currently0 (1 standard drink = 0.6 oz pure alcohol)[facility] UtilitiesAnswerDate RecordedIn the past 12 months has the [employer], [employer], oil, or water [employer] threatened to shut off services in your [...] were you homeless or living in a prison (including now)? No02/04/2024Hunger Vital SignAnswerDate RecordedWithin the past 12 months, you worried that your food would run out before you got the money to buymore.Never true4Ran Out of Food in the Last YearNot on file02/04/2024Sex and Gender InformationValueDate RecordedSex Assigned at LpdxjZlmf48/28/2024 9:09 AM ESTLegal RacJyzk9611/07/2022 9:21 AM EDTGender XqkmgkduLinw45/28/2024 9:09 AM EST Sexual OrientationHeterosexual or Puwkksfr22/28/2024 9:09 AM EST Last Filed Vital Signs Vital SignReadingTime TakenCommentsBlood Hmjzddpb638/8312/13/2024 8:52 AM EDT Nnxnt89392/28/2025 8:52 AM OTRQhzwibsdlnq62.9 ??C (98.4 ??F)02/05/2024 4:00 PM ESTRespiratory Gvnh638504/07/2023 4:00 PM ESTOxygen Dixinmgcux37%12/13/2024 8:52 AM EDTInhaled Oxygen Concentration--Cmhwzw93.9 kg (152 lb)12/13/2024 8:52 AM EDT Icmoki436.8 cm (5' 10 )12/13/2024 8:52 AM EDTBody Mass Index21.8112/13/2024 8:52 AM EDT Plan of Treatment Health MaintenanceDue DateLast DoneCommentsCT Xnldhrojayxt25/23/1960FIT-DNA 1959FIT1959FOBT1959Medicare Initial Physical (IPPE)1959 Oeidhymgtwdzo76/23/1960Depression Mfyewwlsq02/23/1972Pneumococcal Vaccine: 50+ Years (1 of 2 - PCV)1978Zoster Vaccines (1 of 2)2009Fall Risk Xibpokklx16/OVID-19 Vaccine (3 - 2024- season)2024 12/12/2020, 04/23/2020Influenza Vaccine (#1)/12/2019, 03/19/2017, 12/05/20154200Pydakgjuohm04Colorectal Cancer Xpzuuxjpv72/12/2029 Adult Ritovcl71, 12/05/2015, 02/01/2010HIB VaccinesAged OutNo longer eligible based on patient's age to complete this topicHPV VaccinesAged OutNo longer eligible based on patient's age to complete this topicIPV Vaccines Aged OutNo longer eligible based on patient's age to complete this topic Meningococcal B VaccineAged OutNo longer eligible based on patient's age to complete this topicMeningococcal VaccineAged OutNo longer eligible based on patient's age to complete this topicRotavirus VaccinesAged OutNo longer eligible based on patient's age to complete this topic Medical Devices ImplantedTypeAreaManufacturerDevice IdentifierShelf Expiration DateModel / Serial / LotMonitor,Cardiac,Lux,Dxii+[facility] - [id number] - [id number] Implanted:Qty: 1 on 06/22/2023 by Matt Willis [facility] CenterImplantable Loop RecorderBoston Jtsqejklwo42/[id number] / [id number] / Procedures Procedure NamePriorityDate/TimeAssociated DiagnosisCommentsCARDIAC DEVICE CHECK CHECK - SBOIOHJxiwjci68/22/2025 10:16 AM EDT Awareness of heartbeats CARDIAC DEVICE CHECK - REMOTE - LOOP RECORDER (ILR)Tyrzdon0611/03/2024 12:00 AM EDTfrom Last 3 Months Results * CARDIAC DEVICE CHECK - REMOTE - LOOP RECORDER (ILR) (11/07/2024 10:16 AM EDT) Specimen (Source)Anatomical Location / LateralityCollection Method / Volume Collection TimeReceived Time Narrative Authorizing ProviderResult TypeResult StatusMatt Willis MDCV IMPLANTABLE CARDIAC DEVICE PROCEDURESFinal ResultPerforming OrganizationAddressCity/State/ZIP Code Phone Number CPACS * Cardiac device check - Remote loop recorder (ILR) (11/03/2024 12:00 AM EDT) Anatomical RegionLateralityModalityOtherSpecimen (Source)Anatomical Location / LateralityCollection Method / VolumeCollection TimeReceived Time11/03/2024 Narrative Authorizing ProviderResult TypeResult StatusSamer J Julia MDCV IMPLANTABLE CARDIAC DEVICE PROCEDURESFinal Result from Last 3 Months Insurance Advance Directives * Full Code (Latest Code Status on File) Date ActivatedDate YydqkgdelmvYeyxmiok60/19/2024 2:46 PM02/05/2024 7:00 PM * Full Code Date ActivatedDate JpsaiuxruqnVgkigict64/19/2024 2:46 PM02/04/2024 2:46 PM Care Teams Team MemberRelationshipSpecialtyStart DateEnd Date Eric Jimenez MD [address] [facility] [place] [address] PCP - General04/15/23
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
--- OUTSIDE RECORDS SUMMARY | 2024-12-28 15:39 | XMS_ITS | Clinical Summary ---
Author Organization [facility] Address [id number] [address] [place] [address] Care Team Providers Care Quality Control Lab Technician Name Role Phone Eric Jimenez MD Primary Care Provider [phone] Allergies Active AllergyReactionsCriticalityNoted DateCommentsNo Known Drug Allergies 09/11/2016 Other reaction(s): Unknown Medications MedicationSigDispense QuantityRefillsLast FilledStart DateEnd DateStatus levothyroxine (SYNTHROID, LEVOTHROID) 50 MCG tablet Take 25 mcg by mouth daily.09/10/2016Active celecoxib (CeleBREX) 200 mg capsule Take by mouth as needed.02/07/2017Active pravastatin (PRAVACHOL) 40 mg tablet Take 1 tablet (40 mg total) by mouth daily. 30 tablet 09/28/2019Active omeprazole (PriLOSEC) 40 mg capsule Take 40 mg by mouth daily.Active metoprolol tartrate (LOPRESSOR) 100 mg tablet Take 1.5 tablets (150 mg total) by mouth 2 (two) times a day. 240 tablet Active Additional Information Patient taking differently: 100 mgoral 2 times daily, Reported on 05/14/2020 sucralfate (CARAFATE) 1 gram tablet Take 1 g by mouth 4 (four) times a day.03/02/2020ctive losartan (COZAAR) 50 mg tablet Take 1 tablet (50 mg total) by mouth daily. 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 As directed by Teresa PEREZ 14 Syringe ctive oxyCODONE-acetaminophen (PERCOCET) 5-325 mg per tablet Indications:Calculus of gallbladder with chronic cholecystitis without obstructionTake 1 tablet by mouth every 6 (six) hours as needed for pain for up to 12 doses. Max Daily Amount:4 tablets 12 tablet 05/22/2020ctive metoprolol succinate XL (TOPROL XL) 100 mg 24 hr tablet Indications:Coronary artery disease involving wainwright coronary artery of wainwright heart without angina pectorisTAKE 1 TABLET BY MOUTH TWICE A DAY 270 tablet 03/26/2021ctive warfarin (COUMADIN) 5 mg tablet Indications:Atrial fibrillation, unspecified type ([facility]Take 1-1.5 tablets (5-7.5 mg total) by mouth in the evening. As directed by Teresa PEREZ.. 45 tablet ctive verapamil SR (CALAN-SR) 180 mg CR tablet TAKE 1 TABLET BY MOUTH TWICE A DAY 180 tablet 08/15/2021ctive Active Problems ProblemNoted DateDiagnosed DateUnstable jykzsu0809/27/2019 Overview (09/27/2019): Added automatically from request for surgery [id number] Chest pain09/26/2019Atrial ywmecvkxrxtj77/27/2017Presence of prosthetic heart valve10/18/2015Rheumatic mitral rkscusqa82/01/2016Thoracic aortic aneurysm without iheequa0010/18/2015 Resolved Problems ProblemNoted DateDiagnosed DateResolved DateHx of mitral valve replacement with mechanical valveLong term (current) use of anticoagulants [Z79.01] Immunizations ImmunizationAdministration DatesNext DueInfluenza, Injectable, quadrivalent (PF) 12/28/2019Tdap04/22/2021 Family History Medical HistoryRelationNameCommentsColon cancerBrotherProstate cancerBrother CancerFatherLeukemiaFatherCancerMotherDiabetesMotherHypertensionMotherRelation NameStatusCommentsBrotherAliveFatherDeceasedMotherDeceased Social History Tobacco UseTypesPacks/DayYears UsedDateSmoking Tobacco: NeverSmokeless Tobacco: Never Tobacco Cessation:Counseling Given: No Alcohol UseStandard Drinks/WeekCommentsNo0 (1 standard drink = 0.6 oz pure alcohol)Social Connection and Isolation PanelAnswerDate RecordedIn a typical week, how many times do you talk on the phone with family, friends, or neighbors?Three times a week09/26/2019How often do you get together with friends or relatives?Once a week09/26/2019How often do you attend protestant or evangelical services?More than 4 times per year09/26/2019Do you belong to any clubs or organizations such as protestant groups, unions, fraternal or athletic groups, or school groups?No09/26/2019How often do you attend meetings of the clubs or organizations you belong to?Never09/26/2019Are you , , , , never , or living with a partner?Zqqzywk3609/26/2019Overall Financial Resource Strain (CARDIA)AnswerDate RecordedHow hard is it for you to pay for the very basics like food, housing, medical care, and heating?Not hard at all09/26/2019PHQ-2AnswerDate RecordedTotal Vdsjl561Finuintah basin medical center [place] of Occupational Health - Occupational Stress QuestionnaireAnswerDate RecordedDo you feel stress - tense, restless, nervous, or anxious, or unable to sleep at night because yourmind is troubled all the time - these days?Only a little 09/26/2019Exercise Vital SignAnswerDate RecordedOn average, how many days per week do you engage in moderate to strenuous exercise (like a brisk walk)?2 days 09/26/2019On average, how many minutes do you engage in exercise at this level? 150+ min09/26/2019PRAPARE - TransportationAnswerDate RecordedIn the past 12 months, has lack of transportation kept you from medical appointments or from getting medications?No09/26/2019In the past 12 months, has lack of transportation kept you from meetings, work, or from getting things needed for daily living?No09/26/2019ChildcareAnswerDate RecordedDo problems getting child development instructor make it difficult for you to work or study?No09/26/2019EmploymentAnswerDate RecordedDo you need help finding a local career center and/or a training program?No09/26/2019Purpose - LifeAnswerDate RecordedPurpose and direction in oikwPgdviuu48/15/2021ex and Gender InformationValueDate RecordedSex Assigned at BirthNot on fileLegal RtoDqjs8209/21/2014 11:26 AM EDTGender IdentityNot on file Sexual OrientationNot on file Last Filed Vital Signs Vital SignReadingTime TakenCommentsBlood Fnxabayt337/8003 9:33 PM EST Ktanb3742 9:33 PM QBZPudjhjeaqxs69.6 ??C (97.9 ??F)04/22/2021 7:02 PM ESTRespiratory Fjkr096104/22/2021 9:33 PM ESTOxygen Qsecxlsmiw76%04/22/2021 9:33 PM ESTInhaled Oxygen Concentration--Lwkxyk25 kg (150 lb)04/22/2021 7:02 PM EST Pndasb370.8 cm (5' 10 )04/22/2021 7:02 PM ESTBody Mass Index21.52004/22/2021 7:02 PM EST Plan of Treatment Health MaintenanceDue DateLast DoneCommentsStatin Use: Fsdlzkxqewyqlu05/23/1961 Depression Xfvkxsyyo71/23/1972Tobacco Zfiqeeoxf97/23/1972Adult BMI Screening 1977Zoster (Shingles) Vaccine (1 of 2)2009RSV ( or age 60+ yrs) (1 - Risk 60-74 years 1-dose series)2019Fall Risk Ltscdlmwp02/23/2025 COVID-19 Vaccine (3 - 2024- season)/, 04/23/2020Influenza Qqokxzf44/12/2019, 04/23/2019, 03/19/2017, Additional history exists DTaP,Tdap and Td Vaccines (4 - Td or Tdap), 12/05/2015, 02/01/2010 Medical Devices Not on file Insurance Advance Directives * Full Code (Latest Code Status on File) Date ActivatedDate InactivatedComments09/28/2019 3:32 PM09/28/2019 9:21 PM * Full Code Date ActivatedDate InactivatedComments09/26/2019 5:54 PM09/28/2019 10:46 AM Care Teams Team MemberRelationshipSpecialtyStart DateEnd Date Eric Jimenez MD [facility]07/28/16
--- OUTSIDE RECORDS SUMMARY | 2024-12-28 15:39 | XMS_ITS | Clinical Summary ---
Author Organization [facility] Address [address] [place] [address] Care Team Providers Care Manager Personnel Selection Name Role Phone Eric Jimenez MD Primary Care Provider [phone] Allergies No known active allergies Medications No known medications Social History Tobacco UseTypesPacks/DayYears UsedDateSmoking Tobacco: Never AssessedSex and Gender InformationValueDate RecordedSex Assigned at BirthNot on fileLegal Sex Male04/30/2022 6:44 PM EDTGender IdentityNot on fileSexual OrientationNot on file Plan of Treatment Not on file Insurance * Guarantor: Ady Ibanez TypeRelation to PatientDate of BirthPhone Billing AddressPersonal/MhzggaFlyl48/23/1961 [facility] [address] Care Teams Team MemberRelationshipSpecialtyStart DateEnd Eric Jimenez MD PCP - GeneralFamily Medicine05/15/23
--- OUTSIDE RECORDS SUMMARY | 2024-12-28 15:39 | XMS_ITS | Encounter Summary ---
Author Organization 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 No02/04/2024Hunger Vital SignAnswerDate RecordedWithin the past 12 months, you worried that your food would run out before you got the money to buymore.Never true02/04/2024an Out of Food in the Last YearNot on file02/04/2024Sex and Gender InformationValueDate RecordedSex Assigned at WvcocCucj49/28/2024 9:09 AM ESTLegal IscMowt0611/07/2022 9:21 AM EDTGender WuikbszoRhkz39/28/2024 9:09 AM EST Sexual OrientationHeterosexual or Ykaqslpg17/28/2024 9:09 AM ESTdocumented as of this encounter Functional Status * BPAnswerDate of PhpvtwfbgzMznupj607/8312/13/2024 8:52 AM Nimo Chakraborty MA * PulseAnswerDate of HmrwqggolnSodjgc72697/28/2025 8:52 AM Nimo Chakraborty MA * Patient PositionAnswerDate of RxvmzleqruSyqyjfNghbxml78/28/2025 8:52 AM Nimo Srinivasan MA * Are you deaf or do you have serious difficulty hearing?AnswerDate of FonjrzngslIjivueVe41/20/2024 2:56 PM Afua Marquis RN * Are you blind or do you have serious difficulty seeing, even when wearing glasses?AnswerDate of IskeehvtkwCblrcmNz75/20/2024 2:56 PM Afua Marquis RN * Do you have serious difficulty walking or climbing stairs?AnswerDate of TkdhrigqsyPdiqlmTi49/20/2024 2:56 PM Afua Marquis RN * Do you have serious difficulty dressing or bathing?AnswerDate of Assessment ZqltldEt01/20/2024 2:56 PM Afua Marquis RN * Because of a physical, mental, or emotional condition, do you have serious difficulty doing errandsalone such as visiting the doctor?AnswerDate of PpidlvbzkyGfhfyyKe82/20/2024 2:56 PM Afua Marquis RN * BPAnswerDate of ZtqyptgqrjWxjudf591/8312/13/2024 8:52 AM Nimo Chakraborty MA * PulseAnswerDate of ZxisulosrsRlwifh81935/28/2025 8:52 AM Nimo Chakraborty MA * YfK5VyqswaNjfe of TywoggguykXrkofd4950/28/2025 8:52 AM Nimo Chakraborty MA * BP LocationAnswerDate of AssessmentAuthorLeft arm12/13/2024 8:52 AM EDT Nimo Sears MA * Patient PositionAnswerDate of DuncetmcwiXvvpoaKfvhpna68/28/2025 8:52 AM Nimo Srinivasan MA documented as of this encounter Mental Status * Because of a physical, mental, or emotional condition, do you have serious difficulty concentrating, remembering, or making decisions? (5 years old or older)AnswerEntry OjnhUaexqpRs53/20/2024 2:56 PM Afua Marquis RN documented in this encounter Plan of Treatment Not on file documented as of this encounter Visit Diagnoses Not on filedocumented in this encounter Care Teams Team MemberRelationshipSpecialtyStart DateEnd Eric Jimenez MD [address] [facility] [address] [address] [facility]04/15/23documented as of this encounter
--- NOTE | 2024-12-28 16:00 | CA_ITS ---
Patient Name: NITZA MIRANDA MR#: [id number] : 1960 Exam Date: 12/28/2024 Ordering Doctor: BELA QUEVEDO ECHOCARDIOGRAM REPORT PROCEDURE: CA ECHO DOPPLER COMPLETE INDICATIONS: Atrial fibrillation, aortic valve replacement, mitral valve replacement, ascending aortic arch aneurysm repair COMPARISON: None. DESCRIPTION: COMPLETE ECHOCARDIOGRAM Real-time transthoracic echocardiography with 2D, M-mode, spectral and color flow Doppler performed. QUALITY: Technical quality was good. LEFT VENTRICLE: Normal chamber size. Proximal septal hypertrophy (sigmoid septum). The septum is abnormal in motion likely due to prior open heart surgery. Systolic function is mildly reduced. LV EF: Mildly reduced left ventricular ejection fraction, (45%). DIASTOLIC: ATRIAL SEPTUM: LEFT ATRIUM: Severe dilatation. RIGHT ATRIUM: Mild dilatation. RIGHT VENTRICLE: Normal chamber size. Normal right ventricular systolic function. TRICUSPID VALVE: Normal mobility and thickness. No stenosis with trivial regurgitation. No evidence of pulmonary hypertension. RVSP 26 mmHg MITRAL VALVE: Mechanical prosthetic valve appears well seated in the mitral position with normal Doppler flow. No mitral regurgitation. Mean diastolic gradient 6.7 mmHg at a heart rate of 96 bpm. AORTIC VALVE: Mechanical prosthetic valve appears well seated in the aortic position with normal doppler flow. No aortic regurgitation. Mean systolic gradient is 4.4 mmHg. AORTIC ROOT: Normal diameter and appearance, measuring 3.1 cm. Ascending aorta and aortic arch are normal in size, measuring 2.6 cm. PULMONIC VALVE: Normal thickness and mobility. No stenosis. Mild regurgitation. PERICARDIUM: No evidence of pericardial effusion. IVC: Collapses with inspiration. IVC is normal in size. PLEURA: CONCLUSION: 1. The left ventricle is normal in size and exhibits mildly reduced systolic function. Estimated LVEF is 45%. 2. Normal right ventricular size and systolic function. 3. Severe left atrial dilatation. 4. Mechanical prosthetic aortic valve with normal Doppler flows and no regurgitation. 5. Mechanical prosthetic mitral valve with normal Doppler flows and no regurgitation. 6. Normal right-sided pressures. Adult Echocardiography Procedure Report Left Ventricle LVEDD (3.7 - 5.6 cm): 5.18 cm LVESD (2.2 - 4.0 cm): 4.11 cm LVIVS thickness (0.6 - 1.2 cm): 0.73 cm LVPW thickness (0.5 - 1.0 cm): 0.75 cm LVOT Max Gradient: 2.08 mm[Hg] LVOT Area (cm2): 0.72 m/s Peak Velocity (LVOT): 0.72 m/s Mean Velocity (LVOT): 0.46 m/s LVOT Diameter 1.89 cm Left Ventricular Ejection Fraction: 45 % Left Atrium LA Volume Index (2D A2C): 50.33 ml/m2 Left Atrium Systolic Dimension: 4.75 cm Mitral Valve MV E to A Ratio: 0.89 Mitral Valve A-Wave Peak Velocity: 1.69 m/s Mitral Valve E-Wave Peak Velocity: 1.50 m/s Right Ventricle Aorta AO Root Diam: 3.13 cm Ascending Ao Diam: 2.63 cm Aortic Valve AoV Area (Peak Francis): 1.32 cm2, 1.32 cm2 AoV Area (VTI): 1.55 cm2, 1.55 cm2 Peak Velocity(Antegrade Flow): 1.54 m/s Peak Gradient(Antegrade Flow): 9.46 mm[Hg] Mean Velocity(Antegrade Flow): 0.95 m/s Mean Gradient(Antegrade Flow): 4.39 mm[Hg] Velocity Time Integral: 25.39 cm Tricuspid Valve Peak Velocity (Regurgitant Flow): 2.38 m/s Pulmonic Valve Mean Gradient: 1.85 mm[Hg] Mean Velocity: 0.63 m/s Peak Velocity: 0.94 m/s Peak Gradient: 3.55 mm[Hg] Right Atrium Right Atrium Systolic Pressure: 64.50 ml, 64.50 ml Dictated by: Yamil Guillory M.D. on 12/28/2024 at 18:14 Approved by: Yamil Guillory M.D. on 12/28/2024 at 18:29
== END 2024-12-28 15:34 | disposition home or self-care (01) ==
LOC: CARD 15:34
PROVIDERS: PCP Family Medicine; Visit Provider Internal Medicine Cardiovascular Disease
DX: R94.31 Abnormal electrocardiogram [ECG] [EKG] (principal); I48.0 Paroxysmal atrial fibrillation
CPT/HCPCS: 93306

== ENCOUNTER 2025-01-16 11:58 | Outpatient (RCR) | payer BC, SELFPAY | END 2025-02-15 13:02 | disposition home or self-care (01) | LOC: MM 11:58 | PROVIDERS: PCP Family Medicine; Visit Provider Internal Medicine | DX: Z51.81 Encounter for therapeutic drug level monitoring (principal); Z79.01 Long term (current) use of anticoagulants; I48.91 Unspecified atrial fibrillation ==

== ENCOUNTER 2025-01-21 10:46 | Outpatient (OUT) | payer BC, SELFPAY ==
--- OUTSIDE RECORDS SUMMARY | 2025-01-21 10:49 | XMS_ITS | CCD ---
Author Organization [facility] Care Team Providers Care Ranch Hand Supervisor Name Role Phone Nehemiah Siddiqui Primary Care Provider [phone] Nehemiah Siddiqui Unavailable Nehemiah Siddiqui MD Primary Care Provider [phone] Abner Young Unavailable Dianne WOOD, Nimo H Unavailable DR NEHEMIAH SIDDIQUI Attending Unavailable DR NEHEMIAH SIDDIQUI Admitting Unavailable ARTUR, DR CERNA Primary Care Unavailable DR NEHEMIAH SIDDIQUI Consulting Unavailable DR NEHEMIAH SIDDIQUI Attending Unavailable ARTUR, DR CERNA Admitting Unavailable DR NEHEMIAH SIDDIQUI Primary Care Unavailable Nehemiah Siddiqui MD Primary Care Provider [phone] Abner Young Unavailable Dianne WOOD, Nimo H Unavailable MACARENA FU Attending Unavailable Nehemiah Siddiqui MD Primary Care Provider [phone] Nehemiah Siddiqui MD Primary Care Provider [phone] Macarena Fu DO Attending Provider Nehemiah Siddiqui Primary Care Physician Nehemiah Siddiqui [...] [No Known Medication Allergies]Propensity to adverse reactions (disorder)[facility] Repository Medications Current Medications MedicationDrug Class(es)DatesSig (Normalized)Sig (Original)24 hr dilTIAZem hydrochloride 300 mg extended release oral capsule (1 source)Calcium Channel BlockerStart: 38-06-9329qluj 1 capsule by mouth once daily, then take 1 capsule by mouth every twenty-four hoursDiltiazem Hcl (Cardizem Cd) 300 mg Capsule,Extended Release 24hr Active 300 MG PO Daily May 12:00am Complies with drug therapyferrous sulfate 325 mg oral tablet (1 source)Start: 51-51-8025eefk 1 tablet by mouth once dailyferrous sulfate 325 mg Tab 325 mg = 1 tab(s), Oral, Daily, Refills(s) 0 Start Date: 02/15/24 Status: Ordered Repeat number: 1irbesartan 150 mg oral tablet (1 source)Angiotensin 2 Receptor BlockerStart: 79-03-5562gjnk 1 tablet by mouth once dailyirbesartan 150 mg Tab 150 mg = 1 tab(s), Oral, Daily, Refills(s) 0 Start Date: 11/18/24 Status: Ordered Repeat number: 1levothyroxine sodium 0.075 mg oral tablet (4 sources)l-ThyroxineStart: 79-86-6809msjg 1 tablet by mouth once daily levothyroxine 75 mcg (0.075 mg) Tab 75 mcg = 1 tab(s), Oral, Daily, Refills(s) 0 Start Date: 11/18/24 Status: Ordered Repeat number: 1Start: 37-63-3452dgwi 1 tablet by mouth once dailylevothyroxine (SYNTHROID) 25 mcg tablet Take 25 mcg by mouth once daily. 0 07/25/2020 ActiveStart: 55-54-8997gqvu 1 tablet by mouth once dailyLevothyroxine 50 mcg tablet Active 50 MCG PO Daily May 28, 2018 12:00am Complies with drug therapyComment on above:Take 25 mcg by mouth once daily.pantoprazole 40 mg delayed release oral tablet (1 source)Proton Pump InhibitorStart: 52-25-8640sntk 1 tablet by mouth once dailyPantoprazole (Protonix) 40 mg Tablet,Delayed Release (Dr/Ec) Active 40 MG PO Daily May 28, 201812:00am Complies with drug therapyperflutren lipid microspheres 1.3 mL in NaCl (PF) 0.9% 10 mL injection (DEFINITY) (1 source)Start: 07-26-2020 End: 69-30-2663jekeuacxeg lipid microspheres 1.3 mL in NaCl (PF) 0.9% 10 mL injection (DEFINITY)pravastatin sodium 40 mg oral tablet (4 sources)HMG-CoA Reductase InhibitorStart: 87-60-2040wppz 1 tablet by mouth once dailyPravachol 40 mg Tab 40 mg = 1 tab(s), Oral, Daily, Refills(s) 0 Start Date: 10/19/19 Status: Ordered Repeat number: 1Comment on above:Take 40 mg by mouth once daily.125 ml sodium chloride 9 mg/ml prefilled syringe (1 source)Start: 07-26-2020 End: 87-15-7583qwagfj chloride 0.9 % (flush) 10 mL (BD POSIFLUSH)verapamil hydrochloride 180 mg extended release oral tablet (4 sources)Calcium Channel BlockerStart: 10-43-1454rvtq 1 tablet by mouth once dailyVerapamil 180 mg tablet extended release Active 180 MG PO daily November 08, 2024 12:00am Complies with drug therapyStart: 04-15-7151trsq 1 tablet by mouth twice dailyverapamil SR (CALAN SR, ISOPTIN SR) 180 mg CR tablet Take 180 mg by mouth twice daily. 0 03/02/2020ctiveStart: 64-04-7094jhuk 0.5 tablet by mouth every twelve hoursverapamil 180 mg ER Tab 0.5 tab, Oral, q12hr, Refills(s) 0 Start Date: 10/25/19 Status: Ordered Repeat number: 1Comment on above:Take 180 mg by mouth twice daily.warfarin sodium 5 mg oral tablet (3 sources)Vitamin K AntagonistStart: 09-22-1927tlzt 7.5 mg by mouth once daily Coumadin 5 mg Tab 7.5 mg = 1.5 tab(s), Oral, Daily, Refills(s) 0 Start Date: 10/19/19 Status: OrderedRepeat number: 1Start: 20-25-7903kmwq 1 tablet by mouth once dailywarfarin (COUMADIN) 5 mg tablet Take 5 mg by mouth daily as directed. As directed by [facility] coumadin clinic. 0 10/21/2018 Active Comment on above:Take 5 mg by mouth daily as directed. As directed by [facility] coumadin [facility]. Completed/Discontinued Medications MedicationDrug Class(es)DatesSig (Normalized)Sig (Original)amoxicillin 500 mg oral capsule (2 sources)Penicillin-class AntibacterialStart: 59-43-4039tkvn 4 capsules by mouth every houramoxicillin (POLYMOX, [...] capsule (1 source)Nonsteroidal Anti-inflammatory DrugStart: 05-28-2018 End: 32-76-1647gnfx 1 capsule by mouth twice daily as needed for painCelecoxib (Celebrex) 200 mg Capsule Discontinued 200 MG PO Twice daily as needed for Pain May 28, 2018 12:00am November 08, 2024 3:06pmlamoTRIgine 100 mg oral tablet (4 sources)Mood Stabilizer, Anti-epileptic AgentStart: 07-03-7535inzn 1 tablet by mouth once dailylamoTRIgine (LAMICTAL) 100 mg tablet Take 100 mg by mouth once daily. 0 08/27/2020 ActiveStart: 66-07-4234otxd 1 tablet by mouth twice dailyLamotrigine 100 mg tablet Active 100 MG PO Twice daily May 28, 2018 12:00am Complies with drug therapyComment on above:Take 100 mg by mouth once daily.losartan potassium 50 mg oral tablet (4 sources)Angiotensin 2 Receptor BlockerStart: 07-26-2020 End: 47-57-5947dzrw 1 tablet by mouth every twelve hourslosartan (COZAAR) 50 mg tablet take one tablet by mouth twice a day 180 tablet 3 11/07/2022 Active Comment on above:TAKE 1 TABLET BY MOUTH TWICE A DAYTake 1 tablet by mouth twice daily.take one tablet by mouth twice a day24 hr metoprolol succinate 100 mg extended release oral tablet (3 sources)beta-Adrenergic BlockerStart: 45-31-8510xurg 100 mg by mouth twice dailymetoprolol succinate ER (TOPROL XL) 100 mg Take 100 mg by mouth twice daily. 0 06/28/2020 ActiveStart: 34-41-4119zszi 1 tablet by mouth every twelve hoursMetoprolol Succinate 50 mg tablet extended release 24 hr Active 50 MG PO Q12H May 28, 2018 12:00am Complies with drug therapyComment on above:Take 100 mg by mouth twice daily. Problems Active Problems Problem ClassificationProblemDateDocumented DateEpisodic/ChronicAbdominal pain (1 source)Epigastric dgal14-57-2919XhuoxqfsIcchig; peripheral; and visceral artery aneurysms (3 sources)Thoracic aortic aneurysm without rupture; Translations: [Thoracic aortic aneurysm, without rupture]Onset: 123694-22-5302RzicvauMxdgxuz tract disease (1 source)Biliary igyhmouf18-76-0499QqgstphsBspslwf dysrhythmias (9 sources)Atrial fibrillation; Translations: [Unspecified atrial fibrillation] Onset: 104473-24-3493XwnobkmMnsydceija disorders (1 source)Gastroesophageal reflux goumxfa31-38-0378OnjwrfjKosjxawmt hypertension (3 sources)Essential hypertension; Translations: [Essential (primary) hypertension]Onset: 031439-33-6158FatypnmMmwca valve disorders (5 sources)History of mitral valve replacement; Translations: [Presence of prosthetic heart valve]Onset: 045468-41-2406FpdpsaxJfpgplxktwupt mental health disorders (2 sources)Primary insomnia; Translations: [Primary insomnia]29-64-5676Vdptuwc Other aftercare (1 source)Long-term current use of znzcrypfgmnbp49-23-7889CywlrzkkVayoa and ill- defined heart disease (1 source)Bilateral enlargement of lexdf10-82-4074CrelqcaFfpvz and ill-defined heart disease (1 source)Amwqhayumkal50-75-9611XknhvulIyyle and ill-defined heart disease (1 source)Left ventricular bkydhmymwus41-33-7545YdjawisVjyxx and unspecified benign neoplasm (2 sources)History of polyp of colon; Translations: [Personal history of adenomatous and serrated colon polyps]Onset: 54-42-5239McegioqnXreui congenital anomalies (1 source)Marfan's dixzcshx85-80-4883FagqxxvBayhd lower respiratory disease (1 source)Nodule of avkd56-05-9056JdkkshnrXbbhw male genital disorders (1 source)Induratio penis bixmnpqo95-57-8766XvxanyhOvygk screening for suspected conditions (not mental disorders or infectious disease) (2 sources)Encounter for screening for malignant neoplasm of prostate; Translations: [Patient encounter status]Onset: 220822-00-5994Etzjarfo Comment on above:Problem List clean-up per request of Phys. EHR CmtePulmonary heart disease (1 source)Pulmonary gzifrivcflex58-01-6044JdmfcqpNjevhvsi codes; unclassified (3 sources)Obstructive sleep apnea syndrome; Translations: [Obstructive sleep apnea (adult) (pediatric)]94-57-0155IyjotxoLmgujfvt codes; unclassified (2 sources)Hypersomnia; Translations: [Hypersomnia, unspecified]10-21-2023 ChronicThyroid disorders (1 source)Mggzqzhwklomfm96-57-4039Xiogcjq Past or Other Problems Problem ClassificationProblemDateDocumented DateEpisodic/ChronicCardiac dysrhythmias (2 sources)Palpitations; Translations: [Palpitations]Onset: 60-64-3152Bwsdwrhu Other lower respiratory disease (2 sources)Hypoxia; Translations: [Hypoxemia]87-63-5746RgfisqxxDkbgm lower respiratory disease (2 sources)Snoring; Translations: [Snoring]71-96-7274QzhfyzcaBhhzyggd codes; unclassified (2 sources)Inadequate sleep hygiene; Translations: [Inadequate sleep hygiene] 06-69-9649Jovuxqsj Results Test NameValueInterpretationReference RangeFacilityOrders Onlyon 12-20-2024 Orders [id number] Nitza Ibanez 1960 M Date Provider Department Center 12/20/2024 MANAV LIANG Family History Problem Relation Age of Onset Cancer Mother Cancer Father Diabetes Sister Cancer Brother Diabetes Brother Family Status - Relation Status Age at Mother Father Sister Alive Brother DeceasedNormalUniProMedica Flower HospitalOffice Visiton 63-65-3401Covdoc-up [id number] Nitza Ibanez 1960 M Date Provider Department Center 12/13/2024 MATT STANFORD Family History Problem Relation Age of Onset Cancer Mother Cancer Father Diabetes Sister Cancer Brother Diabetes Brother Family Status - Relation Status Age at Mother Father Sister Alive Brother Level of Service:03976 [place] OFFICE/OUTPATIENT ESTABLISHED LOW MDM 20 MIN Reason for Visit and Comments: Follow-up [748124] - Patient is here today for a 6 month follow up appointment.Patient denies chest pain, SOB/CABRAL, dizziness/lightheaded, leg swelling/pain, abnormal bleeding/bruising. Patient will be having colonoscopy December 30 at [facility]. With Dr. Franco. Patient would like to have an Echo done. 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 At night it goes to 70-75.NormalUnSelect Medical TriHealth Rehabilitation HospitalOrders Onlyon 64-82-5017Kqwikh [id number] Nitza Ibanez 1960 M Date Provider Department Center 12/13/2024 CIERRA FONTANEZ Family History Problem Relation Age of Onset Cancer Mother Cancer Father Diabetes Sister Cancer Brother Diabetes Brother Family Status - Relation Status Age at Mother Father Sister Alive Brother DeceasedNormalUniProMedica Flower HospitalOrders [id number] Nitza Ibanez 1960 M Date Provider Department Center 12/13/2024 MANAV LIANG Family History Problem Relation Age of Onset Cancer Mother Cancer Father Diabetes Sister Cancer Brother Diabetes Brother Family Status - Relation Status Age at Mother Father Sister Alive Brother DeceasedNoalUniProMedica Flower HospitalOrders Onlyon 16-46-8392Nzoetc [id number] Nitza Ibanez 1960 M Date Provider Department Center 11/03/2024 BRIDGETTE MONROY [facility] CARD CT [facility] Family History Problem Relation Age of Onset Cancer Mother Cancer Father Diabetes Sister Cancer Brother Diabetes Brother Family Status - Relation Status Age at Mother Father Sister Alive Brother DeceasedNoAdena [facility]36on 27-05-810539Kdjd note says stopped AmioNormalUniProMedica Flower HospitalOrders Onlyon 61-02-5053Jsagls [id number] Nitza Ibanez 1960 M Date Provider Department Center 09/01/2024 BRIDGETTE MONROY [facility] CARD CT [facility] Family History Problem Relation Age of Onset Cancer Mother Cancer Father Diabetes Sister Cancer Brother Diabetes Brother Family Status - Relation Status Age at Mother Father Sister Alive Brother DeceasedProMedica Defiance [facility] Hospital36on Patient stopped in to the office [...] fine no symptoms at this time. Please advise.[facility] HospitalOffice Visiton 06-40-2460Hqioim-up [id number] Nitza Ibanez 1960 M Date Provider Department Center 07/26/2024 MATT STANFORD CARD [facility] Family History Problem Relation Age of Onset Cancer Mother Cancer Father Diabetes Sister Cancer Brother Diabetes Brother Family Status - Relation Status Age at Mother Father Sister Alive Brother Level of Service:57165 [place] OFFICE/OUTPATIENT ESTABLISHED LOW MDM 20 [facility] CenterOrders Only34-79-5945Cvnwyf [id number] Nitza Ibanez 1960 M Date Provider Department Center 07/16/2024 MATT STANFORD [facility] CARD [place] [facility] Family History Problem Relation Age of Onset Cancer Mother Cancer Father Diabetes Sister Cancer Brother Diabetes Brother Family Status - Relation Status Age at Mother Father Sister Alive Brother DeceasedNoAdena Regional Medical Center36on Regarding lab results from 05/26/2024: Neena Meade, AUGUSTINE Balderas MA Please let him know his labs overall looked unremarkable. His TSH was slightly higher than his last check. Please have him follow-up with his PCP about this. Please also ask if he has noticed any change in his HR/palpitations. Thanks! Faxed lab results to Dr. Siddiqui's office. LM on patient's VM.[facility]37on *We will start amiodarone to try to help control your heart rate better. *Start amiodarone 400mg (2 tablets of 200mg) twice daily for 10 days. Then take 200mg 1 tablet daily. *Hold verapamil while on amiodarone. *Let us know if you are having any issues with low heart rates or any dizziness/lightheadedness.[facility] HospitalOffice Visit on 75-13-5739Glsfhr-up [id number] Nitza Ibanez 1960 M Date Provider Department Center 05/26/2024 NEENA HORTON CARD [facility] Family History Problem Relation Age of Onset Cancer Mother Cancer Father Diabetes Sister Cancer Brother Diabetes Brother Family Status - Relation Status Age at Mother Father Sister Alive Brother Level of Service:43216 [place] OFFICE/OUTPATIENT ESTABLISHED MOD MDM 30 MIN Reason for Visit and Comments: Atrial Fibrillation [80][facility]36on 04-05-2024 36Wife called with BP lo/77 HR 74 133/65 HR 81 151/79 HR 77 145/73 HR 83 133/78 HR 102 133/87 HR 99 123/65 HR 72 130/77 HR 77 124/67 HR 92NormFlower HospitalFollow-Upon 03-16-2024 Follow-[id number] Nitza Ibanez 1960 M Date Provider Department Center 03/16/2024 [id number]-[id number], ADAM SAMUEL [facility] Family History Problem Relation Age of Onset Cancer Mother Cancer Father Diabetes Sister Cancer Brother Diabetes Brother Family Status - Relation Status Age at Mother Father Sister Brother Level of Service:14501 [place] OFFICE/OUTPATIENT ESTABLISHED LOW [facility] CenterTelephoneon [id number] Nitza Iabnez 1960 M Date Provider Department Center 02/25/20241986-LETI RYAN C VASC LAB CT [facility] Family History Problem Relation Age of Onset Cancer Mother Cancer Father Diabetes Sister Cancer Brother Diabetes Brother Family Status - Relation Status Age at Mother Father Sister Brother Reason for Visit and Comments: 3 week post ablation f/u [Other][facility] Telephoneon [id number] Nitza Ibanez 1960 M Date Provider Department Center 02/18/20241986-LETI RYAN [facility] VASC LAB CT [facility] Family History Problem Relation Age of Onset Cancer Mother Cancer Father Diabetes Sister Cancer Brother Diabetes Brother Family Status - Relation Status Age at Mother Father Sister Brother Reason for Visit and Comments: post ablation f/u [Other][facility]36on 22-68-297164Lp answer when called for discharge call back, message left, call back number provided if he has any questions or concerns.[facility] HospitalTelephoneon [id number] Nitza Ibanez 1960 M Date Provider Department Center 02/06/2024 [facility] Family History Problem Relation Age of Onset Cancer Mother Cancer Father Diabetes Sister Cancer Brother Diabetes Brother Family Status - Relation Status Age at Mother Father Sister Brother Reason for Visit and Comments: Hospital Follow-up [832][facility]30on 02-05-2024 30The patient is Moderately Stable - Low risk of patient condition declining or worsening The patient's goals for the shift include rest/comfort The clinical goals for the shift include VSS, safety Over the shift, the patient did not make progress toward the following goals. Barriers to progression include. Recommendations to address these barriers include.NormalUnSelect Medical TriHealth Rehabilitation Hospital30The patient is Moderately Stable - Low risk of patient condition declining or worsening The patient's goals for the shift include rest/comfort The clinical goals for the shift include VSS,safety Over the shift, the patient did not make progress toward the following goals. Barriers to progression include. Recommendations to address these barriers include.NormalProMedica Toledo HospitalBASIC METABOLIC PANELon 90-48-6580Cohwb gap [Moles/Vol]12 mmol/LNormal7-20UnSelect Medical TriHealth Rehabilitation HospitalComment on above:Performed By: #### [id number] ####[facility] ([facility])[address] [place], [place] [address]Iurunwm [Mass/Vol]8.5 mg/dLLow8.6-10.3 [facility] HospitalComment on above:Performed By: #### [id number] ####[facility] ([facility])[address] [place], [place] [address]Glrhuwvk [Moles/Vol]103 mmol/NHwwnca72-465BdwtzdzcjvSelect Medical TriHealth Rehabilitation HospitalComment on above:Performed By: #### [id number] ####[facility] ([facility])[address] [place], [place] [address]WK6 [Moles/Vol]23 mmol/PFluqew11-98ReryexfgmkSelect Medical TriHealth Rehabilitation HospitalComment on above:Performed By: #### [id number] ####[facility] ([facility])[address] [place], [place] [address]Mvesiyalhb [Mass/Vol]0.86 mg/dLNormal 0.70-1.30UnSelect Medical TriHealth Rehabilitation HospitalComment on above:Performed By: #### [id number] ####[facility] ([facility])[address], [place] [address]QKDIKFVOIJ FILTRATION RATE ML/MIN/1.73 SQ M.NXCAHOOGQ31.7 mL/min/1.73m*2Normal>60.0 [facility] HospitalComment on above:Result Comment: The [facility]???s estimated glomerular filtration rate (eG FR) [...] group of individuals. Performed By: #### [id number] ####[facility] ([facility])[address] [place], [place] [address]Gtumwus [Mass/Vol]141 mg/kIJbxf19-638GiskkblziwSelect Medical TriHealth Rehabilitation HospitalComment on above:Performed By: #### [id number] ####[facility] ([facility])[address] [place], [place] [address]Acbjusdmo [Moles/Vol]4.0 mmol/LNormal 3.5-5.1UnSelect Medical TriHealth Rehabilitation HospitalComment on above:Performed By: #### [id number] ####[facility] ([facility])[address] [place], [place] [address]Tqbzvm [Moles/Vol]134 mmol/PVuc278-327XvtfpqbrnhSelect Medical TriHealth Rehabilitation HospitalComment on above:Performed By: #### [id number] ####[facility] ([facility])[address] [place], [place] [address]Hoip nitrogen [Mass/Vol]19 mg/dLNormal7-25UnSelect Medical TriHealth Rehabilitation HospitalComment on above:Performed By: #### [id number] ####[facility] ([facility])[address]Otomet[address] Medical TechnologiesLED[place], [place] [address]CUYJ NITROGEN/CREATININE (MASS RATIO) IN SER/PLAS22.1NormalUnSelect Medical TriHealth Rehabilitation HospitalComment on above: Performed By: #### [id number] ####[facility] ([facility])[address]omet[address] Medical TechnologiesLED[place], [place] [address]XSHQT CULTUREon 53-97-0373Pdymtdtz identified Cx Nom (Bld)No growth at 5 daysNormalUniversity of Dos Santos Medical CenterComment on above:Performed By: #### [id number] #### [facility] ([facility]) [address] [place] [address]Vjqng Comment: From a different site than #1.Performed By: #### [id number] ####[facility] ([facility])[address] [place] [address]RTF WITH AUTO DIFFERENTIALon 38-93-7638Oqlzmcghc (Bld) [#/Vol]0.01 10*3/uLNormal0.00-0.20 [facility] HospitalComment on above:Performed By: #### [id number] #### [facility] ([facility]) [address] [place] [address]Ffejtafyt/100 WBC (Bld)0.1 %Normal0.0-1.0UnSelect Medical TriHealth Rehabilitation HospitalComment on above:Performed By: #### [id number] #### [facility] ([facility]) [address] [place], [place] [address]Gavmzvnygfl (Bld) [#/Vol]0.00 10*3/uLNormal0.00-0.50UnSelect Medical TriHealth Rehabilitation HospitalComment on above:Performed By: #### [id number] #### [facility] ([facility]) [address] [place] [address]Kdjadrvkumg/100 WBC (Bld)0.0 %Normal0.0-6.0UnSelect Medical TriHealth Rehabilitation HospitalComment on above:Performed By: #### [id number] #### [facility] ([facility]) [address] [place], [place] [address]Psohbvwhlzn distribution width (RBC) [Ratio]13.3 %Normal 11.5-15.0UnSelect Medical TriHealth Rehabilitation HospitalComment on above:Performed By: #### [id number] #### [facility] ([facility] [address] [place], [place] [address]MTQUORKTFRM MEAN CORPUSCULAR HEMOGLOBIN CONCENTRATION (G/DL) BY YFINQOBXJ53.1 g/lVWbrhvl09.0-35.0UnSelect Medical TriHealth Rehabilitation HospitalComment on above:Performed By: #### [id number] #### [facility] ([facility] [address] [place] [address]Fyzltidhmd (Bld) [Volume fraction]38.1 %Low39.0-55.0UnSelect Medical TriHealth Rehabilitation HospitalComment on above:Performed By: #### [id number] #### [facility] ([facility]) [address] [place] [address]Nhfqayduda (Bld) [Mass/Vol]12.6 g/dLLow13.0-17.0UnSelect Medical TriHealth Rehabilitation HospitalComment on above:Performed By: #### [id number] #### [facility] ([facility]) [address] [place] [address]Mbeqfrvc granulocytes (Bld) [#/Vol]0.08 10*3/uLNormal0.00-0.20 [facility] HospitalComment on above:Performed By: #### [id number] #### [facility] ([facility]) [address] [place] [address]Relinsmm granulocytes/100 WBC (Bld)0.6 %Normal0.0-1.0UnSelect Medical TriHealth Rehabilitation HospitalComment on above:Performed By: #### [id number] #### [facility] ([facility]) [address] [place] [address]Mlaocmtwooj (Bld) [#/Vol]0.95 10*3/uLLow1.20-4.00UnSelect Medical TriHealth Rehabilitation HospitalComment on above:Performed By: #### [id number] #### [facility] ([facility]) [address] [place] [address]Rpadiwektnk/100 WBC (Bld)6.6 %Low20.0-45.0UnSelect Medical TriHealth Rehabilitation HospitalComment on above:Performed By: #### [id number] #### [facility] ([facility]) [address] [place] [address]JZL (RBC) [Entitic mass]28.6 lqIzghgv23.0-33.0UnSelect Medical TriHealth Rehabilitation HospitalComment on above:Performed By: #### [id number] #### [facility] ([facility]) [address] [address] [place] [address]WUL (RBC) [Entitic vol]86.6 eHAeagmg04.0-98.0UnSelect Medical TriHealth Rehabilitation HospitalComment on above:Performed By: #### [id number] #### [facility] ([facility]) [address] [place] [address]Omewjekdx (Bld) [#/Vol]0.96 10*3/uLNormal0.10-1.00UnSelect Medical TriHealth Rehabilitation HospitalComment on above:Performed By: #### [id number] #### [facility] ([facility]) [address] [place], [place] [address]Purihuhow/100 WBC (Bld)6.7 %Normal5.0-12.0UnSelect Medical TriHealth Rehabilitation HospitalComment on above:Performed By: #### [id number] #### [facility] ([facility]) [address] [place], [place] [address]Dbffivmtiux (Bld) [#/Vol]12.36 10*3/uLHigh1.60-7.60UnSelect Medical TriHealth Rehabilitation HospitalComment on above:Performed By: #### [id number] #### [facility] ([facility]) [address] [place] [address]Fuarlokuicm/100 WBC (Bld)86.0 %High40.0-72.0UnSelect Medical TriHealth Rehabilitation HospitalComment on above:Performed By: #### [id number] #### [facility] ([facility]) [address] [place], [place] [address]TJHK (PER 100 WBCS) BY AUTOMATED COUNT0.0 %Kibkok2RljfdmjbfrSelect Medical TriHealth Rehabilitation HospitalComment on above:Performed By: #### [id number] #### [facility] ([facility]) [address] [place], [place] [address]MFFYSXNBK (10*3/UL) IN BLOOD AUTOMATED [id number] 10*3/uLNormal 150-400UnSelect Medical TriHealth Rehabilitation HospitalComment on above:Performed By: #### [id number] #### [facility] ([facility]) [address] [place] [address]EWT (Bld) [#/Vol]4.40 10*6/uLNormal4.20-5.70UnSelect Medical TriHealth Rehabilitation HospitalComment on above:Performed By: #### [id number] #### [facility] ([facility]) [address] [place] [address]ZLN (Bld) [#/Vol]14.36 10*3/uLHigh4.00-10.60UnSelect Medical TriHealth Rehabilitation HospitalComment on above:Performed By: #### [id number] #### [facility] ([facility]) [address] [place] [place] [address]XIjv [phone] Attestation signed by Matt Quevedo MD at [...] fibrillatio* Discharge Diagnosis PAF (paroxysmal atrial fibrillation) ([facility] Discharge Disposition [...] Medications These medications were sent to [facility] - [address] [place] [address] [place] [address], [facility] [address] famotidine 20 mg tablet omeprazole 40 mg [...] is performed under the ED CLIA certificate #[id number]. CBC WITH AUTO DIFFERENTIAL - Abnormal Auto [...] (*) Lymphocytes Absolute 0.9 (more content not included)...NormalUnSelect Medical TriHealth Rehabilitation HospitalLACTIC ACID WITH 4 HOUR REFLEXon 76-55-5372RFLAMBI (MMOL/L) IN SER/PLAS2.4 mmol/LHigh0.5-2.2[facility] CenterComment on above:Performed By: #### [id number] #### [facility] ([place]) [address] [place], [place] [address]Ynzqjf Onlyon 73-04-0287Cjzwvn [id number] Nitza Ibanez 1960 M Date Provider Department Center 02/05/20241986-[facility] Family History Problem Relation Age of Onset Cancer Mother Cancer Father Diabetes Sister Cancer Brother Diabetes Brother Family Status - Relation Status Age at Mother Father Sister BrotherNormalUniversBluffton HospitalPROTIME-INRon 31-83-1647SDJ IN PPP BY COAGULATION ASSAY2.15Nhkd1.90-1.10Un[facility] Hospital Comment on above:Result Comment: ACC RECOMMENDED INR [...] OPTIMAL THERAPEUTIC RANGE. CHEST 1995;108:231S-246S.Performed By: #### [id number] #### [facility] ([place]) [address] [place], [place] [address]FRCTRZUBGCJ TIME (PT) IN PPP BY COAGULATION ASSAY29.3 Seconds High12.3-14.8UnSelect Medical TriHealth Rehabilitation HospitalComment on above:Performed By: #### [id number] #### [facility] ([place]) [address] [place], [place] [address]db [id number] patient is Moderately Stable - Low risk [...] and behaviors that affect risk of falls Ririe fall precautions as indicated by assessment Educate [...] conditions and prevent exacerbation or deteriorationNormalUniversity of Corpus Christi Medical Center Bay AreaCB WITH AUTO DIFFERENTIALon 49-55-5762Lczismvwi (Bld) [#/Vol]0.02 10*3/uLNormal0.00-0.20UnSelect Medical TriHealth Rehabilitation HospitalComment on above: Performed By: #### [id number] #### [facility] ([facility]) [address] [place] [address]Ihfethwgt/100 WBC (Bld)0.2 %Normal0.0-1.0UnSelect Medical TriHealth Rehabilitation HospitalComment on above:Performed By: #### [id number] #### [facility] ([facility]) [address] [place] [address]Jdrsgyqykki (Bld) [#/Vol]0.01 10*3/uLNormal0.00-0.50UnSelect Medical TriHealth Rehabilitation HospitalComment on above:Performed By: #### [id number] #### [facility] ([facility]) [address] [place] [address]Trnrnrrxhfa/100 WBC (Bld)0.1 %Normal0.0-6.0UnSelect Medical TriHealth Rehabilitation HospitalComment on above:Performed By: #### [id number] #### [facility] ([facility]) [address] [place], [place] [address]Sltkqejvrqj distribution width (RBC) [Ratio]13.0 %Normal 11.5-15.0UnSelect Medical TriHealth Rehabilitation HospitalComment on above:Performed By: #### [id number] #### [facility] ([facility]) [address] [place], [place] [address]RRODULAXQTK MEAN CORPUSCULAR HEMOGLOBIN CONCENTRATION (G/DL) BY KRZVLVQBY30.4 g/pZDysevh57.0-35.0UnSelect Medical TriHealth Rehabilitation HospitalComment on above:Performed By: #### [id number] #### [facility] ([facility]) [address] [place], [place] [address]Dpikpknxir (Bld) [Volume fraction]40.4 %Bukwal84.0-55.0 [facility] HospitalComment on above:Performed By: #### [id number] #### [facility] ([facility] [address] [place], [place] [address]Ubqivirckq (Bld) [Mass/Vol]13.5 g/sUWdepbv05.0-17.0Un[facility] Medical TriHealth Rehabilitation HospitalComment on above:Performed By: #### [id number] #### [facility] ([facility]) [address] [facility] [place], [place] [address]Ljijsqwm granulocytes (Bld) [#/Vol]0.06 10*3/uLNormal0.00-0.20 [facility] HospitalComment on above:Performed By: #### [id number] #### [facility] ([facility]) [address] [place], [place] [address]Pfwqwdpw granulocytes/100 WBC (Bld)0.6 %Normal0.0-1.0UnSelect Medical TriHealth Rehabilitation HospitalComment on above:Performed By: #### [id number] #### [facility] ([facility]) [address] [place], [place] [address]Ssyygpbvlni (Bld) [#/Vol]0.65 10*3/uLLow1.20-4.00UnSelect Medical TriHealth Rehabilitation HospitalComment on above:Performed By: #### [id number] #### [facility] ([facility]) [address] [facility] [place], [place] [address]Iqcvgxinsef/100 WBC (Bld)6.2 %Low20.0-45.0UnSelect Medical TriHealth Rehabilitation HospitalComment on above:Performed By: #### [id number] #### [facility] ([facility]) [address] [place], [place] [address]HQU (RBC) [Entitic mass]28.6 axFaofyg10.0-33.0UnSelect Medical TriHealth Rehabilitation HospitalComment on above:Performed By: #### [id number] #### [facility] ([facility]) [address] [place], [place] [address]MIP (RBC) [Entitic vol]85.6 yVJhnwis73.0-98.0Un[facility] Medical TriHealth Rehabilitation HospitalComment on above:Performed By: #### [id number] #### [facility] ([facility]) [address] [place] [address]Xekcbzmnw (Bld) [#/Vol]0.10 10*3/uLNormal0.10-1.00Un[facility] Medical TriHealth Rehabilitation HospitalComment on above:Performed By: #### [id number] #### [facility] ([facility]) [address] [place] [address]Bcdxmwggj/100 WBC (Bld)0.9 %Low5.0-12.0Un[facility] Medical TriHealth Rehabilitation HospitalComment on above:Performed By: #### [id number] #### [facility] ([facility]) [address] [place] [address]Slgwwlxmbjs (Bld) [#/Vol]9.69 10*3/uLHigh1.60-7.60Un[facility] Medical TriHealth Rehabilitation HospitalComment on above:Performed By: #### [id number] #### [facility] ([facility]) [address] [place], [place] [address]Knhmumwduab/100 WBC (Bld)92.0 %High40.0-72.0Un[facility] Medical TriHealth Rehabilitation HospitalComment on above:Performed By: #### [id number] #### [facility] ([facility]) [address] [place], [place] [address]RYRA (PER 100 WBCS) BY AUTOMATED COUNT0.0 %Ycjiig0ElwdfrmkfzSelect Medical TriHealth Rehabilitation HospitalComment on above:Performed By: #### [id number] #### [facility] ([facility]) [address] [place], [place] [address]KISAULLHI (10*3/UL) IN BLOOD AUTOMATED [id number] 10*3/uLNormal 150-400UnSelect Medical TriHealth Rehabilitation HospitalComment on above:Performed By: #### [id number] #### [facility] ([facility]) [address] [place] [address]IIA (Bld) [#/Vol]4.72 10*6/uLNormal4.20-5.70UnSelect Medical TriHealth Rehabilitation HospitalComment on above:Performed By: #### [id number] #### [facility] ([facility]) [address] [place], [place] [address]QLN (Bld) [#/Vol]10.53 10*3/uLNormal4.00-10.60Un[facility] Tri[facility] Rehabilitation HospitalComment on above:Performed By: #### [id number] #### [facility] ([facility]) [address] [place], [place] [address]OMpg 11-84-8064YXAH Electrophysiology Consult Note Reason for visit: AF, [...] At one point was being seeing by [facility] EP for PPM but no [...] 125, triglycerides 162, hemoglobin A1c 5.4 Per [facility] cardiology 09/2020 HISTORY OF PRESENT [...] Resource Strain: Low Risk (09/26/2019) Received from [facility] Overall Financial Resource Strain (CARDIA) Difficulty of Paying Living Expenses: Not hard at all Food Insecurity: Not on file Transportation Needs: No Transportation Needs (09/26/2019) Received from [facility], [facility] PRAPARE - Transportation Lack of Transportation (Medical): No Lack of Transportation (Non-Medical): No Physical Activity: Sufficiently Active (09/26/2019) Received from [facility] Exercise Vital Sign Days of Exercise per Week: 2 days Minutes of Exercise per Session: 150+ min Stress: No Stress Concern Present (09/26/2019) Received from [facility] [place] - Occupational Stress Questionnaire Feeling of Stress : Only a little Social Connections: Moderately Integrated (09/26/2019) Received from [facility] Social Connection and Isolation Panel [NHANES] Frequency of (more content not included)...NormalUnSelect Medical TriHealth Rehabilitation HospitalPOCT ACTIVATED CLOTTING TIME UNSOLICITED RESULTSon 13-71-7066DBF ACTIVATED CLOTTING CUNZ010 pocBppqkq39-898GqhiqcugwzSelect Medical TriHealth Rehabilitation HospitalComment on above:Performed By: #### [id number] ####[facility] ([facility])[address] [place], [place] [address]RLIK GLUCOSE METER UNSOLICITED RESULTSon 10-17-4967Dobjqnv [Mass/Vol]111 mg/kJWxux59-686OcpsftevzbSelect Medical TriHealth Rehabilitation HospitalComment on above:Order Comment: Waived Testing in the ED is performed under the ED CLIA certificate #[id number].Result Comment: ngrothaPerformed By: #### [id number] #### [facility] ([facility]) [address] [place], [place] [address]UZWDOOJ-OBBrp 84-22-5316XRB IN PPP BY COAGULATION ASSAY2.20High 0.90-1.10UnSelect Medical TriHealth Rehabilitation HospitalComment on above:Result Comment: ACCCP RECOMMENDED INR FOR [...] OPTIMAL THERAPEUTIC RANGE. CHEST 1995;108:231S-246S.Performed By: #### [id number] #### [facility] ([facility]) [address] [place], [place] [address]UTXSHWXGWJB TIME (PT) IN PPP BY COAGULATION ASSAY24.0 Seconds High12.3-14.8UnSelect Medical TriHealth Rehabilitation HospitalComment on above:Performed By: #### [id number] #### [facility] ([facility]) [address] [place], [place] [address]Nijz for Procedureon 41-86-6689Kyxr for [id number] Nitza Ibanez 1960 M Date Provider Department Center 02/04/2024 1987-[facility] VASC LAB CT HeartVAS Family History Problem Relation Age of Onset Cancer Mother Cancer Father Diabetes Sister Cancer Brother Diabetes Brother Family Status - Relation Status Age at Mother Father Sister BrotherNormalUniversity of Corpus Christi Medical Center Bay AreaOrders Onlyon 10-14-7619Uppvmv [id number] Nitza Ibanez 1960 M Date Provider Department Center 02/02/2024 Telma[facility] Medical C Family History Problem Relation Age of Onset Cancer Mother Cancer Father Diabetes Sister Cancer Brother Diabetes Brother Family Status - Relation Status Age at Mother Father Sister BrotherNormalUniversity of Corpus Christi Medical Center Bay AreaOffice Visiton 77-19-9935Wiqgjy- up [id number] Nitza Ibanez 1960 M Date Provider Department Center 01/26/2024 241-[facility] Family History Problem Relation Age of Onset Cancer Mother Cancer Father Diabetes Sister Cancer Brother Diabetes Brother Family Status - Relation Status Age at Mother Father Sister Brother Level of Service:56146 [place] OFFICE/OUTPATIENT ESTABLISHED MOD MDM 30 [facility] Medical CenterPrep for Procedureon 43-20-4491Xfvo for [id number] Nitza Ibanez Kevin 1960 M Date Provider Department Center 12/31/2023 Michelle-[facility] V[facility] UT HeartVAS Family History Problem Relation Age of Onset Cancer Mother Cancer Father Diabetes Sister Cancer Brother Diabetes Brother Family Status - Relation Status Age at Mother Father Sister BrotherNormalUniversBluffton HospitalOffice Visiton 54-78-7411Wwarmj- up [id number] Nitza Ibanez Kevin 1960 M Date Provider Department Center 12/29/2023 [facility] Family History Problem Relation Age of Onset Cancer Mother Cancer Father Diabetes Sister Cancer Brother Diabetes Brother Family Status - Relation Status Age at Mother Father Sister Brother Level of Service:79322 [place] OFFICE/OUTPATIENT ESTABLISHED HIGH MDM 40 [facility] Medical CenterCBC AUTO DIFFon 39-76-8624PVTM #0.0 103/ul Normal0.0-0.1[facility] Hospital SouthComment on above:Performed By: #### CBC #### [facility] [address] [place] [address] Dr. Pérez MgBasophils/100 WBC (Bld)0.6 %Normal0.2-2.0[facility] Comment on above:Performed By: #### CBC #### [facility] [address] [address] [address] Pérez Zapata #0.5 103/ulNormal0.0-0.7The [facility] HospitalComment on above: Performed By: #### CBC #### [facility] [address] [place] [address] Dr. Pérez Jacksonosinophils/100 WBC (Bld)8.6 %Critically high0.9-7.0The [facility] HospitalComment on above:Performed By: #### CBC #### [facility] [address] [address] [address] Pérez Jacksonrythrocyte distribution width (RBC) [Ratio]13.2 %Pntesu94.0-15.0 The [facility] HospitalComment on above:Performed By: #### CBC #### [facility] [address] [address] [address] Pérez MgHematocrit (Bld) [Volume fraction]43.2 %Obqyjc11.0-54.0The [facility] HospitalComment on above:Performed By: #### CBC #### [facility] [address] [place] [address] Dr. Pérez MgHemoglobin (Bld) [Mass/Vol]14.6 g/sHMmnkpc30.0-18.0The [facility] HospitalComment on above:Performed By: #### CBC #### [facility] [address] [place] [address] Dr. Pérez Monson #0.06 10e3/ulCritically high0.00-0.03[facility] Comment on above:Performed By: #### CBC #### [facility] [address] [place] [address] Dr. Pérez Monson %1.0 %Critically high0.0-0.5The [facility] HospitalComment on above:Performed By: #### CBC #### [facility] [address] [place] [address] Dr. Pérez HerringH #1.1 103/ulCritically low1.2-3.8The [facility] Comment on above:Performed By: #### CBC #### [facility] [address] [place] [address] Dr. Pérez Fraustomphocytes/100 WBC (Bld)17.5 %Critically low20.5-60.0The [facility] HospitalComment on above:Performed By: #### CBC #### [facility] [address] [place] [address] Dr. Pérez JenningsUAL DIFF REQNONormalThe [facility] HospitalComment on above: Performed By: #### CBC #### [facility] [address] [address] [address] Pérez Christy (RBC) [Entitic mass]29.0 uqEopiwx11.9-34.0The [facility] HospitalComment on above:Performed By: #### CBC #### [facility] [address] [address] [address] Pérez Christy (RBC) [Mass/Vol]33.8 g/uBAcposh71.9-35.2The [facility] HospitalComment on above:Performed By: #### CBC #### [facility] [address] [place] [address] Dr. Pérez ChristyV (RBC) [Entitic vol]85.9 qOCiprpa37.0-94.0The [facility] HospitalComment on above:Performed By: #### CBC #### [facility] [address] [place] [address] Dr. Pérez Martin #0.5 103/ulNormal0.3-0.8The [facility] HospitalComment on above:Performed By: #### CBC #### [facility] [address] [place] [address] Dr. Pérez Gordonocytes/100 WBC (Bld)8.3 %Normal1.7-12.0The [facility] Comment on above:Performed By: #### CBC #### [facility] [address] [address] [address] Pérez Aviles #4.0 103/ulNormal1.4-6.5The [facility] HospitalComment on above:Performed By: #### CBC #### [facility] [address] [place] [address] Dr. Pérez Lindquistutrophils/100 WBC (Bld)64.0 %Aumjfb19.0-75.0The [facility] HospitalComment on above:Performed By: #### CBC #### [facility] [address] [place] [address] Dr. Pérez Saucedalet mean volume (Bld) [Entitic vol]9.1 fLCritically low 9.5-13.5The [facility] HospitalComment on above:Performed By: #### CBC #### [facility] [address] [address] [address] Pérez MgPLT213 103/znHypqtl636-497Lsi [facility] on above: Performed By: #### CBC #### [facility] [address] [address] [address] Pérez MgRBC5.03 106/ulNormal4.70-6.10The [facility] HospitalComment on above:Performed By: #### CBC #### [facility] [address] [place] [address] Dr. Pérez MgWBC6.3 103/ulNormal4.0-11.0The [facility] HospitalCommymichigan medical center gladwin on above: Performed By: #### CBC #### [facility] [address] [place] [address] Dr. Pérez MgGLYCOHEMOGLOBIN A1Con 11-42-3545BOZ RECOMMENDATIONSEE BELOWTrinity Health System East CampusCommymichigan medical center gladwin on above:Result Comment: ADA RECOMMENDED LIMIT 4.0 - 6.0 ADA THERAPEUTIC TARGET < 7.0 ACTION SUGGESTED > 7.0Performed By: #### A1C #### [facility] [address] [place] [address] Dr. Pérez MgGlucose [Mass/Vol]105 mg/dLNoLutheran Hospital on above:Performed By: #### A1C #### [facility] [address] [place] [address] Dr. Pérez MgHbA1c (Bld) [Mass fraction]5.3 %Normal4.5-6.2The [facility] on above:Performed By: #### A1C #### [facility] [address] [place] [address] Dr. Pérez MgLIPID PROFILEon 44-76-7940OZSW-HDL RATIO NORMSEE BELOWKindred Hospital DaytonCommymichigan medical center gladwin on above:Result Comment: 3.3 - 4.4 LOW RISK 4.4 - 7.1 AVERAGE RISK 7.1 - 11.0 MODERATE RISK >11.0 HIGH RISKPerformed By: #### LIPID, CMP #### [facility] [address] [place] [address] Dr. Pérez MgCholesterol [Mass/Vol]201 mg/dLCritically high<=200The [facility] on above:Performed By: #### LIPID, CMP #### [facility] [address] [place] [address] Dr. Pérez MgCholesterol in HDL [Mass/Vol]41 mg/nPJeklsg96-16Eqx [facility] HospitalCommymichigan medical center gladwin on above:Performed By: #### LIPID, CMP #### [facility] [address] [place] [address] Dr. Pérez MgCholesterol in LDL [Mass/Vol]122.8 mg/dLKindred Hospital DaytonCommymichigan medical center gladwin on above:Performed By: #### LIPID, CMP #### [facility] [address] [place] [address] Dr. Pérez Milleresterjose juan.total/Cholesterol in HDL [Mass ratio]4.9 {ratio} NormalThe [facility] HospitalCommymichigan medical center gladwin on above:Performed By: #### LIPID, CMP #### [facility] [address] [place] [address] Dr. Pérez Arenas NORMAL> or = 60 mg/dl - LOW CARDIOVASCULAR RISK <40 mg/dl - HIGH CARDIOVASCULAR RISKKindred Hospital DaytonCommymichigan medical center gladwin on above:Performed By: #### LIPID, CMP #### [facility] [address] [place] [address] Dr. Pérez MgLDL CALC NORMALSEE BELOWKindred Hospital DaytonComment on above:Result Comment: <100 mg/dl OPTIMAL 100 - 129 mg/dl NEAR OR ABOVE OPTIMAL 130 - 159 mg/dl BORDERLINE HIGH 160 - 189 mg/dl HIGH >190 mg/dl VERY HIGH Performed By: #### LIPID, CMP #### [facility] [address] [place] [address] Dr. Pérez MgTriglyceride [Mass/Vol]186 mg/dLCritically high<=150The [facility] Methodist Hospitalment on above:Performed By: #### LIPID, CMP #### [facility] [address] [address] [address] Pérez MgVLDL CALC37.2 mg/dLNormalThe [facility] HospitalComment on above: Performed By: #### LIPID, CMP #### [facility] [address] [address] [address] Pérez MgPROF 14(COMP METB)on 97-51-1377Mxtdnna [Mass/Vol]3.9 g/dLNormal 3.4-5.0The [facility] HospitalComment on above:Performed By: #### LIPID, CMP #### [facility] [address] [address] [address] Pérez MgAlbumin/Globulin [Mass ratio]1.1 {ratio}NormalThe [facility] HospitalComment on above:Performed By: #### LIPID, CMP #### [facility] [address] [address] [address] Pérez Gomez [Catalytic activity/Vol]65 U/CYswmpn62-115Vad [facility] HospitalComment on above:Performed By: #### LIPID, CMP #### [facility] [address] [address] [address] Pérez Patel [Catalytic activity/Vol]41 U/NEkvtmo23-59Dwp [facility] HospitalComment on above:Performed By: #### LIPID, CMP #### [facility] [address] [address] [address] Pérez Guillen gap [Moles/Vol]10.3 mmol/LNormalThe [facility] Comment on above:Performed By: #### LIPID, CMP #### [facility] [address] [address] [address] Pérez Woodard [Catalytic activity/Vol]33 U/LRbbzhg39-13Ikw [facility] HospitalComment on above:Performed By: #### LIPID, CMP #### [facility] [address] [address] [address] Pérez MgBilirubin [Mass/Vol]0.5 mg/dLNormal0.2-1.0The [facility] Comment on above:Performed By: #### LIPID, CMP #### [facility] [address] [address] [address] Pérez MgCalcium [Mass/Vol]9.0 mg/dLNormal8.5-10.1The [facility] Comment on above:Performed By: #### LIPID, CMP #### [facility] [address] [address] [address] Pérez MgChloride [Moles/Vol]103 mmol/VDpxipb31-656Lsk [facility] Comment on above:Performed By: #### LIPID, CMP #### [facility] [address] [address] [address] Pérez MgCO2 [Moles/Vol]27.7 mmol/PGoeeir92.0-32.0The [facility] Comment on above:Performed By: #### LIPID, CMP #### [facility] [address] [address] [address] Pérez MgCreatinine [Mass/Vol]0.73 mg/dLNormal0.70-1.30The [facility] HospitalComment on above:Performed By: #### LIPID, CMP #### [facility] [address] [address] [address] Pérez JacksonGFR-AF BARBADIAN>60Normal>=60The [facility] HospitalComment on above:Performed By: #### LIPID, CMP #### [facility] [address] [address] [address] Pérez JacksonGFR-NON AF BARBADIAN>60Normal>=60The [facility] HospitalComment on above:Performed By: #### LIPID, CMP #### [facility] [address] [address] [address] Pérez MgGlobulin (S) [Mass/Vol]3.6 g/dLNormalThe [facility] HospitalComment on above:Performed By: #### LIPID, CMP #### [facility] [address] [place] [address] Dr. Pérez MgGlucose [Mass/Vol]110 mg/dLCritically gfte27-217Wsq [facility] HospitalComment on above:Performed By: #### LIPID, CMP #### [facility] [address] [address] [address] Pérez MgPotassium [Moles/Vol]4.0 mmol/LNormal3.5-5.1The [facility] Comment on above:Performed By: #### LIPID, CMP #### [facility] [address] [place] [address] Dr. Pérez MgProtein [Mass/Vol]7.5 g/dLNormal6.4-8.2[facility] Comment on above:Performed By: #### LIPID, CMP #### [facility] [address] [place] [address] Dr. Pérez MgSodium [Moles/Vol]137 mmol/KPfrzvx967-716Cxw [facility] Comment on above:Performed By: #### LIPID, CMP #### [facility] [address] [place] [address] Dr. Pérez MgUrea nitrogen [Mass/Vol]16.0 mg/dLNormal7.0-18.0The [facility] HospitalComment on above:Performed By: #### LIPID, CMP #### [facility] [address] [place] [address] Dr. Pérez Long nitrogen/Creatinine [Mass ratio]21.9 mg/mgNormalThe [facility] HospitalComment on above:Performed By: #### LIPID, CMP #### [facility] [address] [place] [address] Dr. Pérez Short 33-77-8361HVFWCqiwnwssh (GAIL) NITZA IBANEZ ([id number]) 1960 M Date Time Provider Department 01/28/21 SHAQ LUNA During your visit today, we recorded the following information about you: Ha Silveira 01/28/2021 2:35 PM Signed Outside medical records uploaded to [facility] [employer]: CT/OT - CTA chest with contrast - [...] mouth daily as directed. [facility] - levothyroxine (SYNTHROID) 25 [...] 09/26/2020 Encounter Status:Closed by ANA FRAZIER on 01/28/21[facility] [id number] Visit (CARIMN) NITZA IBANEZ ([id number]) 1960 M Date Time Provider Department 09/26/20 12:30 PM NIMO DEAN During your visit today, we recorded the following information about you: Pulse Respiration Blood pressure Weight 63/minute 12/minute 176/72 69.4 kg Height 1.778 m Nimo Dean MD 10/24/2020 11:55 AM Addendum [facility]se Department of Cardiovascular Medicine SECTION OF CARDIOVASCULAR IMAGING OUTPATIENT VISIT DATE September 26, 2020 OUTPATIENT VISIT TYPE NEW PRIMARY CARE PHYSICIAN: Nehemiah Siddiqui MD [address] [place] [address] REFERRING PHYSICIAN: Shaq Luna [address] [place] [address] CHIEF COMPLAINT: Valvular heart disease HISTORY OF [...] mouth daily as directed. As directed by [facility] Promedic coumadin clinic. levothyroxine (SYNTHROID) 25 [...] for: Headache, Impai (more content not included)...Normal [facility] 56-10-0613QOYPMjzfpx Visit (CARDMN) NITZA IBANEZ ([id number]) 1960 M Date Time Provider Department 07/26/20 [...] fibrillation, sudden deaths. 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 . Daughter A AND W. 2 grandchildren. Lives in [place], [place]. Habits: Tobacco: none. Alcohol: never. Caffeine: [...] Neurological/Psychiatric: Weakness, paralysis-No, Numbness-No, (more content not included)...NormalProMedica Toledo Hospitalon 77-11-7888ENLOLpcjrpxza (CARDMN) NITZA IBANEZ ([id number]) 1960 M Date Time Provider Department 07/20/20 SHAQ LUNA During your visit today, we recorded the following information about you: Ha Duvall 07/20/2020 4:14 PM Signed Outside medical records scanned into [employer]. Patient scheduled to see Dr. Shaq Luna on July 26, 2020. Allergies As of Date: 07/20/2020 (Not on File) Date Reviewed: Never Reviewed Reason for Visit: Received Outside Medical Records [3576] Problem List As Of Date: 07/20/2020 (None) Encounter Status:Closed by HA VALLES on 07/20/20NoMercy Health Defiance HospitalCNCOon 60-81-6964DSJGWqfghu TextNoMercy Health Defiance Hospital CNPNon 18-29-9722YFGMXymxyowvw (REFPHY) NITZA IBANEZ ([id number]) 1960 M Date Time Provider Department 06/26/20 NO PCP (HISTORICAL) REFPHY During your visit today, we recorded the following information about you: Aj Saez 06/26/2020 12:18 PM Signed Patient: Nitza Kevin Marcelle Date of : 1960 Patient phone number: [phone] Referring Provider for the encounter: Nehemiah Siddiqui Requesting Provider: Someone that specializes in Valve Disease Reason for requesting visit (RFV/signs and symptoms/diagnosis): Bradycardia, tachycardia Person calling: self Return call to: self Medical Records/Insurance Card scanned into [employer]: Yes Comments: Valve Replacement X2 Allergies As of Date: 06/26/2020 (Not on File) Date Reviewed: Never Reviewed Reason for Visit: External Referrals/resources [909] Problem List As Of Date: 06/26/2020 (None) Encounter Status:Closed by AJ SAEZ on 06/26/20[facility] Blood Count Auto Diffon 73-15-2247Wplsycdfh #/vol (Bld)0.0 10*3/uLNormal0.0-0.2FOhioHealth Arthur G.H. Bing, MD, Cancer CenterComment on above:Order Comment: Comment send tubes to 210Result Comment: PERFORMED BY: [place] [address] PATHOLOGIST PLUG CUTTING MACHINE OPERATOR LESLYE GONZALEZ M.D.Performed By: #### CBC #### [facility] [address] [place] [address] USABasophils/100 WBC (Bld)0.7 %Normal.[facility] NorthComment on above:Order Comment: Comment send tubes to 210Performed By: #### CBC #### [facility] [address] [place] [address] USAEosinophils #/vol (Bld)0.3 10*3/uLNormal0.0-0.45[facility] NorthComment on above:Order Comment: Comment send tubes to 210 Performed By: #### CBC #### [facility] [address] [place] [address] USAEosinophils/100 WBC (Bld)6.0 %Normal.[facility] NorthComment on above:Order Comment: Comment send tubes to 210Performed By: #### CBC #### [place] [address] USAErythrocyte distribution width Ratio (RBC)14.1 %Normal 12.0-14.8[facility] NorthComment on above:Order Comment: Comment send tubes to 210Performed By: #### CBC #### [place] [address] USAHematocrit Volume Fraction (Bld)44.5 %Qoomot30.8-50.0 [facility] NorthComment on above:Order Comment: Comment send tubes to 210Performed By: #### CBC #### [facility] [address] [place] [address] USAHemoglobin mass conc (Bld)15.1 g/vFUmzggy88.0-17.0 [facility] NorthComment on above:Order Comment: Comment send tubes to 210Performed By: #### CBC #### [facility] [address] [place] [address] USALymphocytes #/vol (Bld)0.7 10*3/uLLow1.00-4.8[facility] NorthComment on above:Order Comment: Comment send tubes to 210 Performed By: #### CBC #### [place] [address] USALymphocytes/100 WBC (Bld)11.9 %Normal.[facility] NorthComment on above:Order Comment: Comment send tubes to 210Performed By: #### CBC #### [facility] [address] [place] [address] Entitic mass (RBC)33.9 g/pFAqybcp90.5-35.6FOhioHealth Arthur G.H. Bing, MD, Cancer CenterComment on above:Order Comment: Comment send tubes to 210 Performed By: #### CBC #### [address] Entitic mass (RBC)28.8 baVmiznp91.5-35.2FOhioHealth Arthur G.H. Bing, MD, Cancer CenterComment on above:Order Comment: Comment send tubes to 210 Performed By: #### CBC #### [address] Entitic volume (RBC)85.0 oREaxtmx52.5-101[facility] NorthComment on above:Order Comment: Comment send tubes to 210 Performed By: #### CBC #### [facility] [address] [place] [address] USAMonocytes #/vol (Bld)0.7 10*3/uLNormal0.0-0.8[facility] NorthComment on above:Order Comment: Comment send tubes to 210 Performed By: #### CBC #### [facility] [address] [place] [address] USAMonocytes/100 WBC (Bld)11.8 %Normal.[facility] - [place] NorthComment on above:Order Comment: Comment send tubes to 210Performed By: #### CBC #### [facility] [address] [place] [address] USANeutrophils #/vol (Bld)3.9 10*3/uLNormal1.8-7.7FOhioHealth Arthur G.H. Bing, MD, Cancer CenterComment on above:Order Comment: Comment send tubes to 210 Performed By: #### CBC #### [facility] [address] [place] [address] USANeutrophils/100 WBC (Bld)69.6 %Normal.[facility] NorthComment on above:Order Comment: Comment send tubes to 210Performed By: #### CBC #### [place] [address] USANucleated RBC/100 WBC Ratio (Bld)0.0 %Normal0-0.5FOhioHealth Arthur G.H. Bing, MD, Cancer CenterCommymichigan medical center gladwin on above:Order Comment: Comment send tubes to 210Performed By: #### CBC #### [place] [address] USAPlatelet mean volume Entitic volume (Bld)7.4 fLNormal 6.6-10.1FOhioHealth Arthur G.H. Bing, MD, Cancer CenterCommymichigan medical center gladwin on above:Order Comment: Comment send tubes to 210Performed By: #### CBC #### [facility] [address] [place] [address] USAPlatelets #/vol (Bld)237 10*3/iXHewdms829-287JaphyqamnSelect Medical Specialty Hospital - [facility] NorthCommymichigan medical center gladwin on above:Order Comment: Comment send tubes to 210 Performed By: #### CBC #### [facility] [address] [place] [address] USARBC #/vol (Bld)5.24 10*6/uLNormal3.90-5.60[facility] NorthCommymichigan medical center gladwin on above:Order Comment: Comment send tubes to 210 Performed By: #### CBC #### [facility] [address] [id number] USAWBC #/vol (Bld)5.6 10*3/Gamal4.1-10.5FOhioHealth Arthur G.H. Bing, MD, Cancer CenterComment on above:Order Comment: Comment send tubes to 210 Performed By: #### CBC #### [facility] [address] [place] [address] USALon 05-28-2018 Specimen: [id number] Received: 05/28/18 Status: CAIO Scott Num: [id number] Spec Type: Surgical Subm Dr: Jim Jules Jr, DO Tissues: A Colon - Polyp (SIGMOID POLYP) Procedures: PRAVEEN Stain/2, Gross/Micro L4 Patient Age/Sex Location Account Attending Physician Ntiza Ibanez 58/M [id number] Jim Jules Jr, DO SPEC NUM: RECD: 05/28/18 STATUS: CAIO ZACKARY NUM: [id number] MARITO: 05/28/[address] [facility] [address]: Jim Jules Jr, DO ENTERED: 05/28/[address] [facility] [address]: SPEC TYPE: Surgical DEPT: S [...] microscopic findings support the above pathologic diagnosis. [address] A. - - SIGMOID POLYP Specimen: Received: 05/28/18 Status: CAIO Scott Num: [id number] Spec Type: Surgical Subm Dr: Jim Jules Jr, DO Tissues: A Colon - Polyp (SIGMOID POLYP) Procedures: HE Stain/2, Gross/Micro L4 Patient: Nitza Ibanez [id number] (Continued) Signed (signature on file) Leslye Gonzalez MD 05/31/18 1553 [facility]Partial Thromboplastin Timeon 05-28-2018 aPTT Coag time (Bld)40.4 sHigh23.0-35.0[facility] NorthComment on above:Order Comment: Comment send tubes to 210Result Comment: PERFORMED BY: [place] [address] PATHOLOGIST PLUG CUTTING MACHINE OPERATOR LESLYE GONZALEZ M.D.Performed By: #### PT, PTT #### [place] [address] USAProthrombin Time INRon 52-92-3392BUU Coag RelTime (PPP)1.4 {INR}[facility]Kit[facility] HospitalComment on above:Order Comment: Comment send tubes [...] - 4.5Performed By: #### PT, PTT #### [facility] [address] [place] [address] USAProthrombin time (PT) Coag time (PPP)16.4 sHigh9.0-12.9 [facility] NorthComment on above:Order Comment: Comment send tubes to 210Performed By: #### PT, PTT #### [facility] [address] [place] [address] [facility] Vital Signs Date TimeVital SignValuePerforming UguxndujvSyvjbbrx10-25-5524 15:06-0400Body eipwvq073.8 cmNehemiah Siddiqui MD Work Phone: [phone]09-23-2025 15:06-0400 Body mass index (BMI) [Ratio]21.5 kg/m4LbjzdysNehemiah Siddiqui MD Work Phone: [phone]09-23-2025 15:06-0400 Body uxmste70.03 kgNehemiah Siddiqui MD Work Phone: [phone]09-23-2025 15:06-0400 Diastolic blood iraxcaro30 mm[Hg]Nehemiah Siddiqui MD Work Phone: [phone] [place], [place] [address]409-23-2025 15:06-0400 Systolic blood mm[Hg]Nehemiah Siddiqui MD Work Phone: [phone] [place] [address] Encounters Encounter DateEncounter TypeCare ProviderFacilityStart: 12-13-2024 End: 28-69-2354tcqsaocxypDUYW [facility]tart: 12-01-2024 End: 94-10-7882tahywxvuldTdvjrsi HoyFacility:[facility] Connecticuttart: 12-01-2024 End: 58-34-6510Xguqhev encounter procedureMichael R NILL 331-4268Xtvkis-TqlwzMetrohealth [facility] General Surgery [place] Start: 11-08-2024 End: 21-57-2512azmwdquvoqGiulohb M Hoy MD Work Phone: [facility] Work Phone: Start: 11-08-2024 End: 69-40-6292Diiavnn encounter procedureNicole Mary Grace Fu DO-FPG Neurology [address] Work Phone: Start: 45-42-0037onjaweaefqZJAYTriHealth Bethesda Butler Hospitaltart: 20-14-1823pxrqpzrsxdHJSFX GRUBBUniRegency Hospital Toledotart: 07-26-2024 End: 05-06-9082utfornydnfNFLXTriHealth Bethesda Butler Hospitaltart: 44-58-5656exnmukoykmLKIITriHealth Bethesda Butler Hospitaltart: 42-28-9336tlluuplfiuTSIXPSH DONNELLSelect Medical [facility] Clinic Rehabilitation Hospital, Avontart: 61-69-5716secubzldeoUPIOSamaritan North Health Centertart: 65-37-9645koifjqlwvcCRQQTriHealth Bethesda Butler Hospitaltart: 03-16-2024 End: 83-45-7891tbdylfphfbFAXH [facility] Centertart: 83-39-1433dnxynjarjoOqgcvaz HoyFacility: BellevueStart: 32-33-4090yfieaksouu MATT [facility]tart: 65-01-6753Vuzzlsjszn and management of inpatientPASamaritan North Health Centertart: 98-32-0758teazgnjrtkHBEDTriHealth Bethesda Butler Hospitaltart: 02-04-2024 End: 00-28-5309Btfdfjfamz and management of inpatientTriHealth Bethesda Butler Hospitaltart: 01-26-2024 End: 97-57-9174gnejxczaedJTLBSamaritan North Health Centertart: 11-22-1223nwbmeimavrXZANTriHealth Bethesda Butler Hospitaltart: 12-29-2023 End: 95-55-7120dilnfchwbrFQBL [facility]tart: 81-22-7549xggbgdswdiOBVO [facility]tart: 10-21-2023 End: 75-16-2978Thjcch flowsheetNicole Nickie DO Work Phone: [facility] [address] STATE ROUTEStart: 10-21-2023 End: 72-17-7790Dnlhve flowsheetNicole Nickie DO Work Phone: noMS [address] STATE R[address]TEStart: 10-21-2023 End: 42-50-4961gxhycqjceaDQKIQU DANNERNot AvailableStart: 10-21-2023 End: 21-60-4011Lnbssm consultation new/estab patient 60 minNicole Nickie DO Work Phone: noms [address] STATE ROUTEComment on above:Primary insomnia (Primary Dx); ANNETTE (obstructive sleep apnea); Hypoxia; Hypersomnia; Inadequate sleep hygiene; Snoring; Atrial fibrillation, unspecified type (CMS/HCC)Start: 11-57-1733XtzhzgZxnu K Chung MD Work Phone: CardiologyComment on above:Refill RequestStart: 27-60-1285Ueyolrial for general adult medical examination without abnormal findingsDR NEHEMIAHRODRÍGUEZ Kentcandida [facility] Hospitaltart: 12-14-2021 End: 24-94-2738glzyctzbgoAC NEHEMIAH HOYFacility:O0Bmaeg: 12-14-2021 End: 55-48-6902Qbxgtpfqe for general adult medical examination without abnormal findingsDR NEHEMIAH SIDDIQUIFacility:P9Wpsct: 76-24-4542YkzidbRhfd K Chung MD Work Phone: CardiologyComment on above:Refill RequestStart: 39-56-2232vccrmhunqsUV NEHEMIAH HOYFacility:B6Ujlqy: 06-26-2020 End: 92-54-3070Ohngrdpcc encounterNo Pcp (Historical)Referring PhysicianComment on above:External Referrals/resources Procedures DateProcedureProcedure DetailPerforming ClinicianStart: 54-74-4753Rfkdttl of cardiac ablation for atrial fibrillationMichael NILL Start: 97-15-2374Gzmxbyubrgzu of insertable loop recorderMichael NILL Start: 64-73-4526XVO screeningDR NEHEMIAH MCDOWELLomment on above:Performed By: #### PSASC #### [facility] [address] [place] [address] Dr. Pérez MgStart: 48-41-2921OllvjogypgqIxilyvo NILL Comment on above:tubular adenomaStart: 04-75-1452Orlctf arch structure (body structure)Kevin NILL Comment on above:reconstructionStart: 02-17-2000 Replacement of mitral valveMichael NILL Cardiac catheterizationMichael NILL CholecystectomyMichael NILL Varicocele (disorder)Kevin NILL Comment on above:left Plan of Treatment DateCare ActivityDetailAuthorStart: 11-08-2024 End: 79-74-9882Bbekgwr encounter /23/2025 3:00 PM EDT Office Visit [facility] [address] [place] [phone] Macarena Fu, 543[facility] [address] [place] [address] [facility]OMKINDR[facility]ALTH[facility] ROUTEStart: 10-21-2023 End: 67-97-3620Nhlzq oximetry, overnightPulse oximetry, overnight Respiratory Care Routine Primary insomnia Expected: 10/21/2023 (Approximate), Expires: 10/20/2024[facility] Work Phone: comment on above:Expected: 10/21/2023 (Approximate), Expires: 10/20/2024Start: 16-01-3275Qctuomynl vaccinationInfluenza Vaccine (#1) [facility] HealthcareStart: 08-72-2494Ntzpbljgk vaccinationInfluenza Vaccine (#1) [facility]: 98-90-5152Kduypwzjcn AssessmentDepression Assessment [facility]: 22-43-6327Qogwzbhbn vaccinationINFLUENZA (#1)[facility]: 53-26-1568PIUKZ-19 VACCINE (2 - Booster for Rowdy series)COVID-19 VACCINE (2 - Booster for Rowdy series)[facility]: 2014 PROSTATE CANCER SCREENING DISCUSSIONPROSTATE CANCER SCREENING DISCUSSION [facility]: 27-63-9377GVEMDEXB VACCINE (1 of 2)SHINGRIX VACCINE (1 of 2)[facility]: 46-34-8623SLRNKOHFO (FIT-DNA)COLOGUARD (FIT-DNA) [facility]: 64-60-6379BokmlwbqiezYLIZMNFOTXDPrnnlerzf ClinicStart: 99-48-1037AUHFSFGWIO CANCER SCREENINGCOLORECTAL CANCER SCREENINGUniversity Hospitals Samaritan Medical Center Start: 23-28-9510MJ COLONOGRAPHYCT COLONOGRAPHYMarion Hospitaltart: 2004 DIABETES SCREENDIABETES SCREENMarion Hospitaltart: 76-69-5386Iobsgvtq ScreeningDiabetes ScreeningMarion Hospitaltart: 29-69-5457BAQIK OCCULT BLOOD FECAL OCCULT BLOODMarion Hospitaltart: 77-93-9120KHBJYMPKXPEIDMIBCVEUFJFFTU [facility]: 38-58-0540Oiczo 1996 panel - Serum or PlasmaLipid ScreeningMarion Hospitaltart: 13-00-2034ECQPX SCREENLIPID SCREENMarion Hospitaltart: 55-33-0865Smxbs microalbumin profileMarion Hospitaltart: 19-41-6488AAPYIW PCP TEAM CHRONIC DISEASE VISITANNUAL PCP TEAM CHRONIC DISEASE VISITMarion Hospitaltart: 73-64-4301UZ CONTROLLED (<130/80)BP CONTROLLED (<130/80)[facility]: 65-27-7883EUAWMLNYD C SCREENINGHEPATITIS C SCREENINGMarion Hospitaltart: 96-20-9883OGY SCREENINGHIV SCREENINGMarion Hospitaltart: 40-20-5634Trrbf depression screening assessmentDEPRESSION SCREENING [facility], Avonrt: 73-26-1223Adavixwkv for malignant neoplasm of colonNOMS Healthcare Immunizations Immunization DateImmunizationNotesCare TtkwgaheQsxrgkuc88-05-0112IMKD-OwN-5 (COVID-19) mRNA-1273 vaccineMichael NILL 156-2125Vwhehn-KkrqiMetrohealth Cleveland [facility] Center General Surgery [place] 04-41-4016BHKI-CoV-2 (COVID-19) Ad26 vaccine, recombinantMichael NILL 539-1558Neczxz-QouwnMetrohealth [facility] Center General Surgery [place] 81-67-4437jnkpftdjb virus vaccine, unspecified formulationShaq Luna MD Work Phone: [facility] Payers DatePayer CategoryPayerPolicy [id number] [id number] Health Insurance [id number] [id number] 48-66-7792WbkrmmgFPVLXTRSXACADIA HEALTHCAREO [id number] 2013- Present [id number] [id number]70Qwtvbbt [id number] 2.840.1.901688.3.57[id number] 2.840.1.778013.3.57[id number] 2.16.840.1.936526.3.57[id number] 2.840.1.630921.3.57[id number] 2.16.840.1.897417.3.579.2.69640-45-4971Yksb-[id number] [id number] Social History DateTypeDetailFacilityTobacco smoking status NHISUnknown if ever smokedMarion Hospitaltart: 04-49-8405Xzf Assigned At BirthNot on [facility] Hospitaltart: 07-26-2020 End: 72-52-8451Hebfebi smoking status NHISNever smoked tobaccoUniversity Hospitals Samaritan Medical Center Work Phone: start: 71-16-9843Hxdnhmt use and exposureSmokeless tobacco non-userUniversity Hospitals Samaritan Medical Center Work Phone: start: 93-15-6410Jbtdhkn intakeLifetime non-drinker (finding)[facility]: 88-20-5650Mqgozka SDOH Alcohol Frequency1 [facility]: 07-26-2020 End: 65-44-0118Hzbjtjy of Social functionMarion Hospitaltart: 07-26-2020 End: 65-78-0664Ollozgy use [facility] CenterNational Score (1- 100), lower number is lower riskNot on [facility] hospitalkTobacco smoking status NHISTobacco smoking consumption unknown [facility] HealthcareStart: 50-35-5614OiiAiia (finding)[facility] Centertart: 96-16-9511Lmx Assigned At [facility] General Surgery [place] Clinical Notes 06-26-2020 to 12-13-2024 Note Date & FqsiLxjwWslqhzjt29-30-5004 NoteUT Electrophysiology Consult Note Reason for visit: [...] At one point was being seeing by [facility] EP for PPM but no [...] 125, triglycerides 162, hemoglobin A1c 5.4 Per [facility] cardiology 09/2020 HISTORY OF PRESENT [...] Transportation Lack of T (more content not included)...[facility] 12-01-2024 NoteGeneral Surgery Office/Clinic Note Chief [...] tab(s), Oral, Daily (more content not included)... [facility] CenterComment on above:Result Comment: Electronically Signed By: JOAN WOOD, Kevin Lagnston.mai\Date and Time Signed: 12/01/24 19:16 EDT 07-26-2024 [...] At one point was being seeing by [facility] EP for PPM but no [...] 125, triglycerides 162, hemoglobin A1c 5.4 Per [facility] cardiology 09/2020 HISTORY OF PRESENT [...] Transportation Needs: No T (more content not included)...[facility]04-10-2025 NotePatient here for 3 month follow up appointment. Patient has loop recorder in place. Patient states yesterday his heart rate was in the 70. Patient states he felt an erratic beat and his heart rate went up into the 100. Patient states it has just stayed beating fast all day today. Denies leg swelling, and SOB. Review of Systems Cardiovascular: Positive for palpitations.[facility] 05-26-2024 NoteCardiovascular Medicine [place] [facility] SUBJECTIVE Chief Complaint Patient presents with [...] results found for: EX (more content not included)...[facility]01-29-2025 NotePatient here for follow up afib ablation performed on 02/04/[address] Quevedo. Has a little chest soreness s/p ablation. Denies SOB, lightheadedness/syncope, and bleeding on warfarin. Review of Systems Cardiovascular: Positive for chest pain ( soreness ) and palpitations ( once in awhile ). All other systems reviewed and are negative.[facility] 03-16-2024 NoteSUBJECTIVE Nitza Ibanez is a [...] Labs Admission on 02/03 (more content not included)...[facility]12-19-2024 NoteTreatment Plan: Patient was seen at bedside by me. He appeared to be in no acute distress, resting in bed. He is hemodynamically stable. Right groin access site appeared to be clean, no oozing, bleeding, or bruising noted. Mild tenderness to deep palpation. Will keep gauze and dressing on access site over night. Signed, Kathryn Fleming MD PGY-4 Plating Tank Operator [facility] Pager: [phone] [facility]12-19[facility]2024 Note02/04/241814 Provider Notification Reason for Communication Change [...] pressure, and new bleeding noted on dressing. pathological technicianCARMEN reyes at bedside, held pressure for 10-15 minutes. While pressure was being applied, blood noted to be oozing from cath site. After 15 minutes, pressure dressing applied. Cardiology paged at this time for an update- awaiting call back.[facility]12-19-2024 NoteATRIAL FIBRILLATION ABLATION PROCEDURE NOTE DATE [...] At one point was being seeing by [facility] EP for PPM but no [...] Coumadin ridge. Esophagus was mapped using the [employer] 3D mapping software and noted to be [...] were isolated. I ens (more content not included)...[facility]12-19-2024 NotePatient: Nitza Ibanez Procedure Summary Date: 02/04/24 Room / Location: [facility] COMMERCIAL ARTIST LETTERING 1 EP / [facility] HV VASCULAR LAB (Cath) Anesthesia [...] were no known notable events for this encounter.[facility]12-19-2024 NoteAirway Date/Time: 02/04/2024 8:59 AM Urgency: elective Airway not difficult General Information and Staff Patient location during procedure: OR Anesthesiologist: Nitza Huntley MD Resident/MOLD TOOLING TECHNICIAN/CAA: Liliya Olmedo MD Performed: resident/MOLD TOOLING TECHNICIAN/CAA Indications and Patient Condition Indications for airway [...] approach: 1 Number of other approaches attempted: 0[facility] 02-04-2024 NotePatient: Nitza Ibanez Procedure Information Date/Time: 02/04/24 0800 Procedure: Ablation a-fib paroxysmal - PC APPROVE Location: [facility] COMMERCIAL ARTIST LETTERING 1 EP / [facility] HVC VASCULAR LAB (Cath) Providers: [...] Value Ventricular Rate 67 Atrial Rate 67 LA Interval 134 QRS DURATION 118 QT Interval 422 QTC CALCULATION(BAZETT) 445 P [place] 59 R-[place] -27 T Wave [place] -5 Impression Normal sinus rhythm Left ventricular [...] products. Plan discussed with attending. Additional Equipment RequestsProMedica [facility]edo [facility]12-10-[address] Electrophysiology Consult Note Reason for visit: AF, [...] At one point was being seeing by [facility] EP for PPM but no [...] 125, triglycerides 162, hemoglobin A1c 5.4 Per [facility] cardiology 09/2020 HISTORY OF PRESENT [...] Resource Strain: Low Risk (09/26/2019) Received from [facility] Overall Financial Resource Strain (CARDIA) Difficulty of Paying Living Expenses: Not hard at all Food Insecurity: Not on file Transportation Needs: No Transportation Needs (09/26/2019) Received from [facility], [facility] PRAPARE - Transportation Lack of Transportation (Medical): No Lack of Transportation (Non-Medical): No Physical Activity: Sufficiently Active (09/26/2019) Received from [facility], [facility] Exercise Vital Sign Days of Exercise per Week: 2 days Minutes of Exercise per Session: 150+ min Stress: No Stress Concern Present (09/26/2019) Received from [facility], [facility] [place] [facility] - Occupational Stress Questionnaire Feeling of Stress : Only (more content not included)...[facility]11-12-2024 NoteUT Electrophysiology Consult Note Reason for [...] At one point was being seeing by [facility] EP for PPM but no [...] 125, triglycerides 162, hemoglobin A1c 5.4 Per [facility] cardiology 09/2020 HISTORY OF PRESENT [...] on file Intimate Partner Violence: Unknown (04/10/2023) CT Safety & Environment Fear of Current or [...] times daily. 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 Past Medical History: Diagnosis Date Backache Disturbance [...] with auto PAP started. He has an [place] Sleepiness scale of 8. More aggressive with [...] was counseled on the risks of stroke, [place], and sudden with ANNETTE, along with the [...] to clinic: 1 year documented in this encounterSainte Genevieve County Memorial [id number] Miscellaneous Notes* Telephone Encounter - Mary Fowler - 11/05/2022 9:55 AM EDT Call from patient requesting refill. Requested Prescriptions Pending Prescriptions Disp Refills losartan (COZAAR) 50 mg tablet [Pharmacy Med Name: LOSARTAN POTASSIUM 50 MG TAB] 180 tablet 3 Sig: take one tablet by mouth twice a day Patient last seen 09/26/20 Mary Fowler documented in this encounterUniversity Hospitals [facility]08-10-2022 Miscellaneous Notes* Telephone Encounter - Ha Silveira - 09/25/2021 7:16 AM EDT Electronic request for refill. Requested Prescriptions Pending Prescriptions Disp Refills losartan (COZAAR) 50 mg tablet [Pharmacy Med Name: LOSARTAN POTASSIUM 50 MG TAB] 180 tablet 3 Sig: TAKE 1 TABLET BY MOUTH TWICE A DAY Last office visit in was 07/26/2020 Ha Silveira documented in this encounterUniversity Hospitals Samaritan [facility] Center08-11-2021 NoteHNO ID: [id number] Author: Nimo Dean MD Service: ? Author Type: Physician Type: Progress Notes Filed: 10/24/2020 11:55 AM Note Text: [facility] Department of Cardiovascular Medicine SECTION OF CARDIOVASCULAR IMAGING OUTPATIENT VISIT DATE September 26, 2020 OUTPATIENT VISIT TYPE NEW PRIMARY CARE PHYSICIAN: Nehemiah Siddiqui MD [address] [place] [address] REFERRING PHYSICIAN: Shaq Luna [address] [facility] [address] CHIEF COMPLAINT: Valvular heart disease HISTORY OF [...] mouth daily as directed. [facility] levothyroxine (SYNTHROID) 25 mcg [...] Apnea GASTROINTESTINAL: Negative for: (more content not included)...[facility]06-10-2021 NoteHNO ID: [id number] Author: Joycelyn Weir Service: ? Author Type: ? Type: Progress Notes Filed: 07/26/2020 2:25 PM Note Text: EVENT MONITOR DISPOSABLE PATCH INSTRUCTIONS Patient Name: Nitza Ibanez [facility] Number: [id number] Skin prepped and cleansed with alcohol Patch secured to prepped area Monitor Activated Serial #: [id number] Patient Instructed: 1.) Prescribed order timeframe 2.) Bathing guidelines 3.) Usage of event button and diary documentation 4.) Return of monitor at the end of prescribed order 5.) Call with problems [phone] or [phone] ext. [phone] Patient expresses a good understanding of instructions [facility] NoteEducation (CARDMN) NITZA IBANEZ ([id number]) 1960 M Date Time Provider Department 07/26/20 2:00 PM ARRHYTHMIA MONITORING LAB CARDMN Reason for Visit: ZIO PATCH [Other] Progress Notes: Joycelyn Weir 07/26/2020 2:25 PM Signed EVENT MONITOR DISPOSABLE PATCH INSTRUCTIONS Patient Name: Nitza Ibanez Clinic Number: [id number] Skin prepped and cleansed with alcohol Patch secured to prepped area Monitor Activated Serial #: [id number] Patient Instructed: 1.) Prescribed order timeframe 2.) Bathing guidelines 3.) Usage of event button and diary documentation 4.) Return of monitor at the end of prescribed order 5.) Call with problems [phone] or [phone] ext. [phone] Patient expresses a good understanding of instructions [...] * Encounter Status:Closed by JOYCELYN GRAVES on 07/26/20[facility]06-10-2021 NoteHNO ID: [id number] Author: Shaq Luna MD Service: ? Author [...] deaths. 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 . Daughter A AND W. 2 grandchildren. Lives in [place], [place]. Habits: Tobacco: none. Alcohol: never. Caffeine: [...] Excessive sweating-No, Frequent urination (more content not included)...[facility]06-10-2021 NoteHNO ID: [id number] Author: Shaq Luna MD Service: ? Author [...] with aortic valve with sinus bradycardia [address] 06-26-2020 Miscellaneous Notes* Telephone Encounter - Aj Saez - 06/26/2020 12:16 PM EDT Patient: Nitza Ibanez Date of : 1960 Patient phone number: [phone] Referring Provider for the encounter: Nehemiah Siddiqui Requesting Provider: Someone that specializes in Valve Disease Reason for requesting visit (RFV/signs and symptoms/diagnosis): Bradycardia, tachycardia Person calling: self Return call to: self Medical Records/Insurance Card scanned into Epic: Yes Comments: Valve Replacement X2 documented in this encounterUniversity Hospitals Samaritan Medical CenterEvaluation + Plan note No data available for this section [facility] [place] Evaluation note* Diagnosis Primary insomnia- Primary Persistent disorder of initiating or maintaining sleep ANNETTE (obstructive sleep apnea) Obstructive sleep apnea (adult) (pediatric) Hypoxia Hypoxemia Hypersomnia Hypersomnia, unspecified Inadequate sleep hygiene Other specific disorder of sleep of nonorganic origin Snoring Other dyspnea and respiratory abnormality Atrial fibrillation, unspecified type (CMS/HCC) documented in this encounter [facility] HealthcareEvaluation noteNo assessment information availableAccess Hospital [facility] Work Phone: Hospital Discharge instructions No data available for this section [facility] Progress note No data available for this section [facility] Reason for referral (narrative)No reason for referral information availableAccess Hospital [place] Work Phone: Summary Purpose Family History No [...] content) DATE CREATED AUTHOR 07/08/2018 [facility] DATE CREATED AUTHOR AUTHOR'S ORGANIZ ATION 03/19/[address] [facility] DATE CREATED AUTHOR AUTHOR'S ORGANIZ ATION 04/02/2022 [facility] DATE CREATED AUTHOR AUTHOR'S ORGANIZ ATION 10/23/2023 [facility] DATE CREATED AUTHOR AUTHOR'S ORGANIZ ATION 12/03/2024 [facility] DATE CREATED AUTHOR AUTHOR'S ORGANIZ ATION 12/24/2024 [facility] Source Comments (unrecognize d section and content) In the event this informatio n is protected by the Federal Confidentiality of Alcohol and Drug Abuse Patient Records regulations: The Federal rules restrict any use of the information to criminally investigate or prosecute any alcohol or drug abuse patient.[facility] Medical CenterIn the event this information is protected by the Federal Confidentiality of Alcohol and Drug Abuse Patient Records regulations: The Federal rules restrict any use of the information to criminally investigate or prosecute any alcohol or drug abuse patient.[facility]aritan Medical CenterIn the event this information is protected by the Federal Confidentiality of Alcohol and Drug Abuse Patient Records regulations: The Federal rules restrict any use of the information to criminally investigate or prosecute any alcohol or drug abuse patient.[facility] Reason for Visit (unrecogniz ed section and content) ReasonCommentsExternal Referrals/resourcesReasonCommentsRefill RequestReason CommentsSleep Apnea Care Teams (unrecognized sec tion and content) Team MemberRelationshipSpecialtyStart DateEnd Date Nehemiah Siddiqui MD [address] [place] [address] PCP - GeneralFamily Practice06/06/13 Abner Young [address] [facility] [address] [place] [address] ReferringCardiology07/26/20 Nimo Dean MD [address] [place] [address] Primary Staff PhysicianCardiology09/26/20Team MemberRelationshipSpecialtyStart DateEnd [facility] Nehemiah Siddiqui MD PCP - GeneralFamily Medicine06/06/13 Abner Young [address] [address] ReferringCardiology07/26/20 Nimo Dean MD [address] [place] [address] Primary Staff PhysicianCardiology09/26/20Team MemberRelationshipSpecialtyStart DateEnd Date Nehemiah Siddiqui MD [address] [place] [address] PCP - GeneralFamily Medicine05/15/23Team MemberRelationshipSpecialtyStart DateEnd [facility] Nehemiah Siddiqui MD [address] [place] [address] PCP - GeneralFamily Medicine05/15/23 Team Status: Active [...] BASED ON THE PRIMARY CLINICAL RECORDS. [facility]. provides no warranty or guarantee of the accuracy or completeness of information in this document.
--- OUTSIDE RECORDS SUMMARY | 2025-01-21 10:51 | XMS_ITS | Encounter Summary ---
Author Organization [facility] Address [address] [place] [address] Care Team Providers Care Action Finisher Name Role Phone Eric Jimenez MD Primary Care Provider [phone] Encounter Details DateTypeDepartmentCare Team (Latest Contact Info)Egqhlzrxhwh73/20/2025Orders Only [facility] [address] [place] [address] Lex Underwood, SPECIAL EVENTS ASSISTANT [address] [place] [address] Social History Tobacco UseTypesPacks/DayYears UsedDateSmoking Tobacco: NeverSmokeless Tobacco: NeverAlcohol UseStandard Drinks/WeekCommentsNot Currently0 (1 standard drink = 0.6 oz pure alcohol)[facility] UtilitiesAnswerDate RecordedIn the past 12 months has the electric, gas, oil, or water company threatened to shut off services in your home?No02/04/2024Humiliation, Afraid, Rape, and Kick questionnaireAnswerDate RecordedWithin the last year, have you been afraid of your partner or ex-partner?No02/04/2024Emotionally AbusedNot on file4Physically Abused Not on file02/04/2024Sexually AbusedNot on file02/04/2024Overall [...] were you homeless or living in a correction (including now)? No02/04/2024Hunger Vital SignAnswerDate RecordedWithin the past 12 months, you worried that your food would run out before you got the money to buymore.Never true02/04/2024an Out of Food in the Last YearNot on file02/04/2024Sex and Gender InformationValueDate RecordedSex Assigned at GrrjuChwh61/28/2024 9:09 AM ESTLegal BuxZeeo0311/07/2022 9:21 AM EDTGender PnbbqmudFrhy53/28/2024 9:09 AM EST Sexual OrientationHeterosexual or Ukpvgnkj49/28/2024 9:09 AM ESTdocumented as of this encounter Plan of Treatment DateTypeDepartmentCare Team (Latest Contact Info)Drrqowjyktc28/29/2025 2:20 PM ESTOffice Visit [facility] [address] [place] [address] Lex Underwood, SPECIAL EVENTS ASSISTANT [address] [place] [address] documented as of this encounter Visit Diagnoses Not on filedocumented in this encounter Care Teams Team MemberRelationshipSpecialtyStart DateEnd Date Hoy, Eric, MD [address] [facility] [place] [address] PCP - General04/15/23documented as of this encounter
--- OUTSIDE RECORDS SUMMARY | 2025-01-21 10:51 | XMS_ITS | Clinical Summary ---
Author Organization [facility] Address [address] [place] [address] Care Team Providers Care Fashion Consultant Selling Name Role Phone Eric Jimenez MD Primary Care Provider [phone] Allergies No known active allergies Medications No known medications Social History Tobacco UseTypesPacks/DayYears UsedDateSmoking Tobacco: Never AssessedSex and Gender InformationValueDate RecordedSex Assigned at BirthNot on fileLegal Sex Male04/30/2022 6:44 PM EDTGender IdentityNot on fileSexual OrientationNot on file Plan of Treatment Not on file Insurance * Guarantor: Ady Ibanez TypeRelation to PatientDate of BirthPhone Billing AddressPersonal/WydlbtBtld28/23/1961 [facility] [address] Care Teams Team MemberRelationshipSpecialtyStart DateEnd Eric Jimenez MD PCP - GeneralFamily Medicine05/15/23
--- OUTSIDE RECORDS SUMMARY | 2025-01-21 10:51 | XMS_ITS | Clinical Summary ---
Author Organization [facility] Address [id number] [address] [place] [address] Care Team Providers Care Blank Driller Name Role Phone Eric Jimenez MD Primary Care Provider [phone] Allergies Active AllergyReactionsCriticalityNoted DateCommentsNo Known Drug Allergies [...] 1Active enoxaparin (LOVENOX) 80 mg/0.8 mL syringe Indications:terminologist (current) use of anticoagulants,Paroxysmal atrial fibrillation (CMS-HCC)Inject [...] 24 hr tablet Indications:Coronary artery disease involving [place] coronary artery of [place] heart without angina pectorisTAKE 1 TABLET BY MOUTH TWICE A DAY 270 tablet 03/26/2021ctive warfarin (COUMADIN) 5 mg tablet Indications:Atrial fibrillation, unspecified type ([facility])Take 1-1.5 tablets (5-7.5 mg total) by mouth in the evening. As directed by Teresa PEREZ.. 45 tablet ctive verapamil SR (CALAN-SR) 180 mg CR tablet TAKE 1 TABLET BY MOUTH TWICE A DAY 180 tablet 08/15/2021ctive Active Problems ProblemNoted DateDiagnosed DateUnstable hnhdll0409/27/2019 Overview (09/27/2019): Added automatically from request for surgery [id number] Chest pain09/26/2019Atrial jtubsbtshqqc14/27/2017Presence of prosthetic heart valve10/18/2015Rheumatic mitral /01/2016Thoracic aortic aneurysm without sflmgak5310/18/2015 Resolved Problems ProblemNoted DateDiagnosed DateResolved DateHx of [...] relatives?Once a week09/26/2019How often do you attend rastafarian or orthodoxy services?More than 4 times per year09/26/2019Do you belong to any clubs or organizations such as rastafarian groups, unions, fraternal or athletic groups, or school groups?No09/26/2019How often do you attend meetings of the clubs or organizations you belong to?Never09/26/2019Are you , , , , never , or living with a partner?Fyhprpq3009/26/2019Overall Financial Resource Strain (CARDIA)AnswerDate RecordedHow hard is it for you to pay for the very basics like food, housing, medical care, and heating?Not hard at all09/26/2019PHQ-2AnswerDate RecordedTotal Egjyt572Fintimpanogos regional hospital [place] of Occupational Health - Occupational Stress QuestionnaireAnswerDate [...] for daily living?No09/26/2019ChildcareAnswerDate RecordedDo problems getting child nutrition assistant make it difficult for you to work or study?No09/26/2019EmploymentAnswerDate RecordedDo you need help finding a local career center and/or a training program?No09/26/2019Purpose - LifeAnswerDate RecordedPurpose and direction in zybvTmisyik90/15/2021ex and Gender InformationValueDate RecordedSex Assigned at BirthNot on fileLegal LgoVkgq2509/21/2014 11:26 AM EDTGender IdentityNot on file Sexual OrientationNot on file Last Filed Vital Signs Vital SignReadingTime TakenCommentsBlood Bcleabxt938/8003 9:33 PM EST Htgor2321 9:33 PM CWRXpoiqtnalhl09.6 ??C (97.9 ??F)04/22/2021 7:02 PM ESTRespiratory Sebu173704/22/2021 9:33 PM ESTOxygen Fdcxudrear97%04/22/2021 9:33 PM ESTInhaled Oxygen Concentration--Sllciu23 kg (150 lb)04/22/2021 7:02 PM EST Yrwkia042.8 cm (5' 10 )04/22/2021 7:02 PM ESTBody Mass Index21.52004/22/2021 7:02 PM EST Plan of Treatment Health MaintenanceDue DateLast DoneCommentsStatin Use: Pysgqqirunmoxc50/23/1961 Depression Jjmzezwgn36/23/1972Tobacco Trpkktnjz98/23/1972Adult BMI Screening 1977Zoster (Shingles) Vaccine (1 of 2)2009RSV ( or age 60+ yrs) (1 - Risk 60-74 years 1-dose series)2019Fall Risk Rurgwejsd20/23/2025 COVID-19 Vaccine (3 - 2024- season)/, 04/23/2020Influenza Btnutbt39/12/2019, 04/23/2019, 03/19/2017, Additional history exists DTaP,Tdap and Td Vaccines (4 - Td or Tdap), 12/05/2015, 02/01/2010 Medical Devices Not on file Insurance Advance Directives * Full Code (Latest Code Status on File) Date ActivatedDate InactivatedComments09/28/2019 3:32 PM09/28/2019 9:21 PM * Full Code Date ActivatedDate InactivatedComments09/26/2019 5:54 PM09/28/2019 10:46 AM Care Teams Team MemberRelationshipSpecialtyStart DateEnd Date Eric Jimenez MD [facility]07/28/16
--- OUTSIDE RECORDS SUMMARY | 2025-01-21 10:51 | XMS_ITS | Clinical Summary ---
Author Organization [facility] Address [address] [place] [address] Care Team Providers Care Retail Store Clerk Name Role Phone Eric Jimenez MD Primary Care Provider [phone] Allergies No known active allergies Medications MedicationSigDispense [...] 50 mg by mouth 2 times daily.Active omeprazole (PriLOSEC) [address] capsule Indications:Paroxysmal atrial fibrillation (CMS/HCC)Take 1 capsule (40 mg) by mouth before breakfast. Do not crush or chew. 30 capsule 02/05/2024ctive Additional Information Patient not taking.Reported on 01/05/2025 famotidine (Pepcid) 20 mg tablet Indications:Paroxysmal atrial fibrillation (CMS/HCC)Take 1 tablet (20 mg) by mouth two times daily. 60 tablet 02/05/2024ctive Additional Information Patient taking differently:20 mg oralAs needed, Reported on 01/05/2025 ferrous sulfate 325 (65 Fe) MG EC tablet Take 65 mg of iron by mouth with breakfast. Do not crush, chew, or split.Active amiodarone (Pacerone) 200 mg tablet Indications:Paroxysmal atrial fibrillation (CMS/HCC)Take 2 tablets (400 mg) by mouth two times daily for 10 days, THEN 1 tablet (200 mg) in the morning. 50 tablet 5Active Additional Information Patient not taking.Reported on 01/05/2025 irbesartan (Avapro) 150 mg tablet Take 150 mg by mouth in the morning.5Active metoprolol succinate XL (Toprol-XL) 25 mg 24 hr tablet Indications:Heart failure with mid-range ejection fraction (CMS/HCC)Take 1 tablet (25 mg) by mouth in the morning. Do not crush or chew. 30 tablet ctive dapagliflozin propanediol (Farxiga) 10 mg Indications:Heart failure with mid-range ejection fraction (CMS/HCC)Take 1 tablet (10 mg) by mouth once daily as directed. 90 tablet ctive dapagliflozin propanediol (Farxiga) 10 mg Indications:Chronic diastolic heart failure (CMS/HCC)Take 1 tablet (10 mg) by mouth in the morning. 90 tablet ctive empagliflozin (Jardiance) 25 mg Indications:Congestive heart failure, unspecified HF chronicity, unspecified heart failure type (CMS/HCC)Take 1 tablet (25 mg) by mouth in the morning. 90 tablet ctive metoprolol succinate XL (Toprol-XL) 100 mg 24 hr tablet Take 0.5 tablets by mouth two times daily. Do not crush or chew.01/05/2025 Discontinued(Therapy completed) verapamil SR (Calan-SR) 180 mg ER tablet Take 180 mg by mouth two times daily. 90mg am and 90mg pm Discontinued(Ineffective) Active Problems ProblemNoted DateDiagnosed DateAtrial enlargement, eumophywp40/28/2025 Hpfspbunlazn80/28/9689Hefscbpmvj50/28/2025hronic zdufyvcpcryctuy74/28/2025 Chronic foot ulcer12/13/2024Dependence on other enabling machines and devices 12/13/2024Disorder of bone12/13/2024Gastro-esophageal reflux disease without pyesymbzbkw68/28/2025GERD (gastroesophageal reflux disease)12/13/2024Lung nodule 12/13/2024LVH (left ventricular hypertrophy)12/13/2024Marfan vrkhfxii89/28/2025 Zywiqvayltwdwx45/28/2025Personal history of adenomatous and serrated colon nigavn6012/13/2024Peyronie ehpwdmu9512/13/2024Pulmonary pdujcbvpasqd00/28/2025 Paroxysmal atrial waztjmjoxndd16/20/2024ersistent atrial cicjufwikdiz20/20/2024 ANNETTE (obstructive sleep apnea)02/04/20247548Ptuqkablihbapp99/19/2024aroxysmal A-fib 02/04/2024Screening for colorectal saworv2101/26/2024AF (paroxysmal atrial fibrillation)12/29/2023resence of prosthetic heart valve Primary dvbjnryoblun69Unstable Overview (04/14/2023): Added automatically from request for surgery [id number] Chest paintrial /27/2017Rheumatic mitral mfaejmit38Thoracic aortic aneurysm without fbzzfob2210/18/2015 04/14/2023 Encounters DateTypeDepartmentCare RnvkEnolubtipxv77/20/2025 2:20 PM ESTOffice Visit [facility] [address] [place] [address] Lex Underwood CNP Heart failure with mid-range ejection fraction (CMS/HCC) (Primary Dx); PAF (paroxysmal atrial fibrillation) (CMS/HCC); History of cardiac ablation for atrial fibrillation (CMS/HCC); Rheumatic mitral stenosis; History of heart valve replacement with mechanical valve; Presence of prosthetic heart valve; Benign hypertensive heart disease with heart failure (CMS/HCC); Mixed oalllwxuibecku03/20/2025Orders Only [facility] [address] [place] [address] Lex Underwood CNP 01/05/2025Orders Only [facility] [address] [place] [address] Yeimi Hernandez MA Congestive heart failure, unspecified HF chronicity, unspecified heart failure type (CMS/HCC) (Primary Dx)01/05/2025Orders Only [facility] [address] [place] [address] Yeimi Hernandez MA Chronic diastolic heart failure (CMS/HCC) (Primary Dx)01/04/2025 11:45 AM EST Ancillary Procedure [facility] [address] [place] [address] Awareness of pmxwtdcexj32/19/2025Orders Only [facility] [address] [place] [address] Jose Cullen MD 12/29/2024Telephone [facility] [address] [place] [address] Cora Balderas MA 12/20/2024Orders Only [facility] [address] [place] [address] Cora Balderas MA 12/13/2024 9:00 AM EDTOffice Visit [facility] [address] [place] [address] Matt Willis MD PAF (paroxysmal atrial fibrillation) (CMS/HCC) (Primary Dx)12/13/2024Orders Only [facility] [address] [place] [address] Yeimi Hernandez MA Abnormal EKG (Primary Dx); Paroxysmal atrial fibrillation (CMS/HCC)12/13/2024Orders Only [facility] [address] [place] [address] Cora Balderas MA 11/03/2024 12:20 PM EDTAncillary Procedure [facility] [address] [place] [address] Awareness of fqmjecrlcd05/18/2025Orders Only [facility] [place] [facility] [address] [place] [address] Bernadette Dumont MD from Last 3 Months Immunizations ImmunizationAdministration DatesNext DueInfluenza, Ibkfwtvxiuf67/19/2016 Influenza, injectable, quadrivalent, preservative free12/28/2019Influenza, seasonal, injectable, preservative free, 6 moonths & older03/19/2017Tdap 04/22/2021,12/05/2015,02/01/2010 Family History Medical HistoryRelationNameCommentsCancerBrotherDiabetesBrotherCancerFather CancerMotherDiabetesSisterRelationNameStatusCommentsBrotherDeceasedFather DeceasedMotherDeceasedSisterAlive Social History Tobacco UseTypesPacks/DayYears UsedDateSmoking Tobacco: NeverSmokeless Tobacco: Never Tobacco Cessation:Counseling Given: Not Answered Alcohol UseStandard Drinks/WeekCommentsNot Currently0 (1 standard drink = 0.6 oz pure alcohol)[facility] UtilitiesAnswerDate RecordedIn the past 12 months has the [employer], gas, oil, or water [employer] threatened to shut off services in your [...] file02/04/2024Sex and Gender InformationValueDate RecordedSex Assigned at ZpmzlAvae81/28/2024 9:09 AM ESTLegal KawInoc3311/07/2022 9:21 AM EDTGender IgmpsatcPser14/28/2024 9:09 AM EST Sexual OrientationHeterosexual or Uhylwltq97/28/2024 9:09 AM EST Last Filed Vital Signs Vital SignReadingTime TakenCommentsBlood Ccqeukgy950/7211 2:20 PM EST Lasxu794701/05/2025 2:20 PM DRIPdzuzexgodb68.9 ??C (98.4 ??F)02/05/2024 4:00 PM ESTRespiratory Zgvf482104/07/2023 4:00 PM ESTOxygen Zndzfgcstc04%01/05/2025 2:20 PM ESTInhaled Oxygen Concentration--Jhcsif50.9 kg (152 lb)01/05/2025 2:20 PM EST Snryet974.8 cm (5' 10 )01/05/2025 2:20 PM ESTBody Mass Index21.8101/05/2025 2:20 PM EST Plan of Treatment DateTypeDepartmentCare Team (Latest Contact Info)Befranoqvav90/29/2025 2:20 PM ESTOffice Visit [facility] [address] [place] [address] Lex Underwood, PIGGYBACK CLERK [address] [place] [address] Health MaintenanceDue DateLast DoneCommentsCT Urvpadqgfhej67/23/1960FIT-DNA 1959FIT1959FOBT1959Medicare Annual Wellness (AWV)1960 Medicare Initial Physical (IPPE)1959 7001Ynpqrzaprmzgm46/23/1960Depression Sldvxviqa93/23/1972Pneumococcal Vaccine: 50+ Years (1 of 2 - PCV)1978 Zoster Vaccines (1 of 2)2009Fall Risk Eshotqqxi52/4COVID- 19 Vaccine (3 - season)/, 04/23/2020Influenza Vaccine (#1)/12/2019, 03/19/2017, 12/05/20155127Ndyjvtsidrs24/12/202904/01/2019 Colorectal Cancer Ouknndkgy57/12/2029dult Gbbuxex43, 12/05/2015, 02/01/2010HIB VaccinesAged OutNo longer eligible based on patient's age to complete this topicHPV VaccinesAged OutNo longer eligible based on patient's age to complete this topicIPV VaccinesAged OutNo longer eligible based on patient's age to complete this topicMeningococcal B VaccineAged OutNo longer eligible based on patient's age to complete this topicMeningococcal VaccineAged OutNo longer eligible based on patient's age to complete this topicRotavirus VaccinesAged OutNo longer eligible based on patient's age to complete this topic Medical Devices ImplantedTypeAreaManufacturerDevice IdentifierShelf Expiration DateModel / Serial / LotMonitor,Cardiac,Lux,Dxii+Icm - [id number] - [id number] Implanted:Qty: 1 on 06/22/2023 by Matt Willis [facility] RecorderBoston [id number] / [id number] / Procedures Procedure NamePriorityDate/TimeAssociated DiagnosisCommentsCARDIAC DEVICE CHECK CHECK - KZDAZIDqhhayg97/20/2025 4:43 PM EST Awareness of heartbeats CARDIAC DEVICE CHECK - REMOTE - LOOP RECORDER (ILR)Ckpapro8901/04/2025 12:00 AM ESTCARDIAC DEVICE CHECK CHECK - NXYLRNXydljdu07/22/2025 10:16 AM EDT Awareness of heartbeats CARDIAC DEVICE CHECK - REMOTE - LOOP RECORDER (ILR)Bcflffc9511/03/2024 12:00 AM EDTfrom Last 3 Months Results * CARDIAC DEVICE CHECK - REMOTE - LOOP RECORDER (ILR) (01/05/2025 4:43 PM EST) Only the most recent of2 resultswithin the time period is included. ComponentValueRef RangeTest MethodAnalysis TimePerformed AtPathologist Signature [id number] (Source)Anatomical Location / LateralityCollection Method / VolumeCollection TimeReceived Time Narrative Authorizing ProviderResult TypeResult StatusPatorrey Willis [facility] IMPLANTABLE CARDIAC DEVICE PROCEDURESFinal ResultPerforming OrganizationAddressCity/State/ZIP Code Phone Number CPACS * Cardiac device check - Remote loop recorder (ILR) (01/04/2025 12:00 AM EST) Only the most recent of2 resultswithin the time period is included. Anatomical RegionLateralityModalityOtherSpecimen (Source)Anatomical Location / LateralityCollection Method / VolumeCollection TimeReceived Time01/04/2025 Narrative Authorizing ProviderResult TypeResult StatusAbhishortencia Cullen [facility] IMPLANTABLE CARDIAC DEVICE PROCEDURESFinal Result from Last 3 Months Insurance Advance Directives * Full Code (Latest Code Status on File) Date ActivatedDate NnptovyzfaoUokefako50/19/2024 2:46 PM02/05/2024 7:00 PM * Full Code Date ActivatedDate BgyepneguyjPznxjevf76/19/2024 2:46 PM02/04/2024 2:46 PM Care Teams Team MemberRelationshipSpecialtyStart DateEnd Date Eric Jimenez MD [facility] [facility] [place] [address] [facility]04/15/23
--- OUTSIDE RECORDS SUMMARY | 2025-01-21 10:51 | XMS_ITS | Encounter Summary ---
Author Organization [facility] Address [address] [place] [address] Care Team Providers Care Solution Strategist Name Role Phone Eric Jimenez MD Primary Care Provider [phone] Encounter Details DateTypeDepartmentCare Team (Latest Contact Info)Craklkujist47/19/2025Orders Only [facility] [address] [place] [address] Jose Cullen MD [address] [place] [address] [id number] Social History Tobacco UseTypesPacks/DayYears UsedDateSmoking Tobacco: NeverSmokeless Tobacco: NeverAlcohol UseStandard Drinks/WeekCommentsNot Currently0 (1 standard drink = 0.6 oz pure alcohol)[facility] UtilitiesAnswerDate RecordedIn the past 12 [...] were you homeless or living in a jail (including now)? No02/04/2024Hunger Vital SignAnswerDate RecordedWithin the past 12 months, you worried that your food would run out before you got the money to buymore.Never true02/04/2024an Out of Food in the Last YearNot on file02/04/2024Sex and Gender InformationValueDate RecordedSex Assigned at DqouuUnub40/28/2024 9:09 AM ESTLegal ScuSwwq8911/07/2022 9:21 AM EDTGender ScltwuwcTjrl87/28/2024 9:09 AM EST Sexual OrientationHeterosexual or Jhdxhpul11/28/2024 9:09 AM ESTdocumented as of this encounter Plan of Treatment DateTypeDepartmentCare Team (Latest Contact Info)Dqfwmwelisv78/29/2025 2:20 PM ESTOffice Visit [facility] [address] [place] [address] Lex Underwood, REPAIR ARMATURE WINDER HELPER [address] [place] [address] documented as of this encounter Procedures Procedure NamePriorityDate/TimeAssociated DiagnosisCommentsCARDIAC DEVICE CHECK - REMOTE - LOOP RECORDER (ILR)Mntbhkv9701/04/2025 12:00 AM ESTdocumented in this encounter Results * Cardiac device check - Remote loop recorder (ILR) (01/04/2025 12:00 AM EST) Anatomical RegionLateralityModalityOtherSpecimen (Source)Anatomical Location / LateralityCollection Method / VolumeCollection TimeReceived Time01/04/2025 Narrative Authorizing ProviderResult TypeResult StatusAbhishegia Cullen [facility] IMPLANTABLE CARDIAC DEVICE PROCEDURESFinal Result documented in this encounter Visit Diagnoses Not on filedocumented in this encounter Care Teams Team MemberRelationshipSpecialtyStart DateEnd Date Eric Jimenez MD [address] [place] [id number] PCP - General04/15/23documented as of this encounter
[2025-01-21 11:44] LABS: Anion Gap 12.0; Blood Urea Nitrogen 12.0 mg/dL (7.0-18.0); Calcium 9.0 mg/dL (8.5-10.1); Carbon Dioxide 25.7 mmol/L (21.0-32.0); Chloride 104 mmol/L (98-107); Estimated GFR (African America >60 (>=60 mL/min/1.73m^2); Estimated GFR (Non-African Ame >60 (>=60 mL/min/1.73m^2); Glucose 111 mg/dL (74-106); Potassium 3.7 mmol/L (3.5-5.1); Sodium 138 mmol/L (136-145)
== END 2025-01-21 10:47 | disposition home or self-care (01) ==
LOC: LAB 10:47
PROVIDERS: PCP Family Medicine
DX: I50.20 Unspecified systolic (congestive) heart failure (principal)
CPT/HCPCS: 36415; 80048